=== PATIENT | female | born 1975 | race Caucasian/White ===

== ENCOUNTER 2022-06-13 20:20 | Emergency (ER) | payer MEDICARE, BC, SELFPAY ==
[2022-06-13 20:29] VITALS: BP 130/82; PULSE 95; RESP 16; TEMP 36.7; O2SAT 99
--- NOTE | 2022-06-13 21:00 | CRLHL7_ITS ---
For Patients: As a result of the Century Cures Act, medical imaging exams and procedure reports are released immediately into your electronic medical record. You may view this report before your referring provider. If you have questions, please contact your health care provider. INDICATION: AMS, TBI, confused. TECHNIQUE: CT head without contrast. Coronal and sagittal reformats were generated. COMPARISON: CT head from 09/15/2016. FINDINGS: CSF spaces: Within normal limits for age. Brain parenchyma and extra-axial spaces: The harris-white differentiation is normal. No sign of mass, hemorrhage, or midline shift. No extra-axial fluid collection. Skull base and calvarium: The visualized paranasal sinuses and mastoid air cells demonstrate no acute or significant findings. The visualized orbits are grossly unremarkable. No skull fractures. IMPRESSION: No acute intracranial abnormality. If there is clinical concern for diffuse axonal injury, recommend MRI of the brain as these findings may not be apparent on noncontrast head CT. Please note that all CT scans at this facility use dose modulation, iterative reconstruction, and/or weight-based dosing when appropriate to reduce radiation dose to as low as reasonably achievable. Dictated by John Culver MD @ 06/13/2022 10:32:40 PM (Electronically Signed)
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
[2022-06-13] MEDS: ONDANSETRON ODT 4 MG TAB PO (21:10)
[2022-06-13] MEDS: LORazepam 0.5 MG TABLET PO (21:10)
[2022-06-13 21:16] LABS: Basophils Absolute Auto 0.03 K/uL (0.00-0.30); Basophils Percent Auto 0.3 % (0.0-3.0); Hematocrit 44.8 % (33.0-51.0); Immature Granulocytes Abs Auto 0.01 K/uL (0.00-0.30); Immature Granulocytes Pct Auto 0.1 %; Mean Corpuscular HGB Conc 34 gm/dL (32-36); Mean Corpuscular Hemoglobin 29 pg (26-34); Mean Corpuscular Volume 86 fL (80-100); Monocytes Percent Auto 4.7 % (0.0-11.0); Neutrophils Percent Auto 80.9 % (42.0-72.0); Platelet Count* 355 K/uL (140-440); RDW Coefficient of Variation % 12.7 % (11.5-15.5); Red Blood Count 5.24 m/uL (4.00-5.20); White Blood Count* 10.98 K/uL (4.50-11.00)
[2022-06-13 21:18] LABS: Slide Review Reflex No
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
--- OUTSIDE RECORDS SUMMARY | 2022-06-13 21:36 | XMS_ITS | Encounter Summary ---
:1975 Author Organization [facility] Address [address] [place] [address] Care Team Providers Name Role Phone [facility] Unavailable [phone] Mar Alfaro DO Primary Care Provider Encounter Details Date Type Department Care Team Description 08/25/2021 Travel Social History Tobacco Use Types Packs/Day Years Used Date Smoking Tobacco: Every Day Cigarettes 0.3 Smokeless Tobacco: Never Alcohol Use Standard Drinks/Week Comments Yes 0 (1 standard drink = 0.6 oz pure alcoho l) social Sex Assigned at Date Recorded Not on file COVID-19 Exposure Response Date Recorded In the last month, have you been in contact with No / Unsure 08/25/2021 4:25 PM 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 documented as of this encounter Plan of Treatment Not on filedocumented as of this encounter Visit Diagnoses Not on filedocumented in this encounter Care Teams Table Tender Sludge Relationship Specialty Start Date End Date [facility] PCP - Primary Care Clinic [place] [address] [place] [address] Mar Alfaro DO PCP - General Family Medicine 07/09/21 [address] [place] [address] documented as of this encounter
--- OUTSIDE RECORDS SUMMARY | 2022-06-13 21:36 | XMS_ITS ---
:1975 Author Care Team Providers Name Role Phone TAPESTRY OTHER [phone] Allergies Code Code System Name Reaction Severity Status Onset NKDA ? Medications Name Status Start Date Stop Date ? ? amlodipine 2.5 mg tablet Active ? Not meron ilable TAKE 1 TABLET EVERY DAY BY ORAL ROUTE. chlorthalidone 25 mg tablet Active ? Not available Take 1 tablet every day by oral route. cholecalciferol (vitamin D3) 100 mcg (4,000 unit) capsule Active ? Not available Take 1 capsule every day by oral route. donepezil 10 mg tablet Active ? Not avail able Take 1 tablet every day by oral route at bedtime. duloxetine 60 mg capsule,delayed release Active ? Not available Take 1 capsule every day by oral route. Excedrin Migraine Active ? Not available OTC Incomplete order gabapentin 300 mg capsule Active ? Not av ailable Take 1 capsule 3 times a day by oral route. hydroxyzine HCl 50 mg tablet Active ? Not available Take 1 tablet every 6 hours by oral route as needed. metoprolol succinate ER 100 mg tablet,extended release 24 hr Act ranjit ? Not available Take 1 tablet every day by oral route. olanzapine 5 mg disintegrating tablet Active ? Not available Place 1 tablet every day by translingual route as needed. quetiapine 50 mg tablet Active ? Not avai lable Take 1 tablet as needed by oral route at bedtime. sumatriptan 25 mg tablet Active ? Not meron ilable Take 1 tablet PO at onset of migraine h eadache.if headache persists after 2 hours take another dose.Max dose of 2 tablets in 24hours. trazodone 50 mg tablet Active ? Not avail able Take 1 tablet as needed by oral route at bedtime. Notes: Routine Standing Orders Per [facility] Protocol Problems Name Status Onset Date Source ? Mixed Anxiety and Depressive Disorder Active ? ? Alcohol Dependence Active ? ? Tobacco Dependence Syndrome Active ? ? Migraine Active ? ? Hypertensive Disorder Active ? ? Traumatic Brain Injury Active ? ? Procedures Date Name Performed by ? ? Tonsillectomy Information not avai lable Results Lab Results None recorded. Past Encounters 05/22/2021 Alcohol Dependence; Mixed Anxiety and De pressive Disorder; Tobacco Dependence Syndrome; Alcohol Withdrawal Syndrome; Hypertensive Disorder; Migraine; Insomnia; Renewal of Prescription Braden Garcia NP, S: [address] [place] [address], Ph. Social History Tobacco Smoking Status Heavy Tobacco Smoker (1 pack per day) Vaccine List None recorded. Plan of Care Patient Instructions Infection control is important while in a congregant living facility, especially amid the COVID-19 pandemic. The following measures can help to mitigate the spread of infections: 1. Frequent hand washing with soap and w ater or hand slip injector and applicator. 2. Avoid touching your face. 3. Maintain social distance of at least 6 feet apart from other people. 4. Wear a mask or cloth face covering if available. 5. Spend time outdoors as much as possib le. 6. Report any fever, malaise, cough, or shortness of breath to nursing staff immediately. Quarantine from others if these symptoms develop. Reminders Provider Appointments None recorded. ? ? Lab None recorded. ? ? Referral None recorded. ? ? Procedures None recorded. ? ? Surgeries None recorded. ? ? Imaging None recorded. ? ? Vitals Height Weight BMI Blood Pressure 5 ft 1 in 220 lbs 41.6 kg/m2 132/90 mm[Hg]
--- OUTSIDE RECORDS SUMMARY | 2022-06-13 21:36 | XMS_ITS | Encounter Summary ---
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 by mouth once daily. cholecalciferol, vitamin D3, 25 mcg, 1000 unit, 25 mcg (1,000 unit) oral tablet Pharmacy Yes Yes Sig: Take 25 mcg by mouth once daily. donepeziL (ARICEPT) 10 mg oral tablet Pharmacy Yes Yes Sig: Take 10 mg by mouth at bedtime. gabapentin (NEURONTIN) 400 mg oral capsule Pharmacy Yes Yes Sig: Take 400 mg by mouth three times a day. ibuprofen 800 mg oral tablet Pharmacy Yes Yes Sig: Take 800 mg by mouth every 8 (eight) hours as needed. metoprolol tartrate (LOPRESSOR) 100 mg oral tablet Pharmacy Yes Yes Sig: Take 100 mg by mouth once daily. polyethylene glycol (MIRALAX) 17 gram Oral PwPk Unknown No No Sig: Take 17 g by mouth Once Daily. senna-docusate (SENNA- S) 8.6-50 mg Oral Tab Unknown No No Sig: Take 2 Tabs by mouth twice a day as needed. traZODone (DESYREL) 50 mg oral tablet Pharmacy Yes Yes Sig: Take 150 mg by mouth at bedtime as needed for sleep. Facility-Administered Medications: None This patient obtains medications from [id number], [place] - [address] [address] Pharmacy. Thank you for the opportunity to participate in the care of this patient. Anastasiya Zamudio, PharmD, [facility] Phone #:[phone] or [phone] Time spent reconciling meds: 30 min Location: NON-face to face encounter (telephone or other means of communication) ER [employer]OR ASSEMBLER documented in this encounter Plan of Treatment Not on filedocumented as of this encounter Procedures Procedure Name Priority Date/Time Associated Comments Diagnosis BASIC METABOLIC PROF Routine 08/29/2021 6:32 Resu lts for MAGNESIUM AM [employer] this procedure are in the results section. CBC Routine 08/29/2021 6:32 Results for (HGB,HCT,WBC,RBC,PLATELE AM [employer]SEMBLER thi s procedure T) are in the results section. ELECTROCARDIOGRAM Routine 08/28/2021 1:32 Results for PM [employer] this procedure are in the results section. POTASSIUM Timed Procedure 08/28/2021 Results for 11:32 AM [employer] this procedure are in the results section. BASIC METABOLIC PROF STAT 08/28/2021 5:23 Resu lts for MAGNESIUM AM [employer]ER this procedure are in the results section. CBC STAT 08/28/2021 5:23 Results for (HGB,HCT,WBC,RBC,PLATELE AM [employer]BLER thi s procedure T) are in the results section. MRI BRAIN LIMITED W/O Routine 08/27/2021 Result s for CON 10:09 PM [employer] this procedure are in the results section. POTASSIUM Timed Procedure 08/27/2021 5:13 Results f or PM [employer] this procedure are in the results section. EEG AWAKE & DROWSY DWAIN 08/27/2021 1:13 Result s for PM [employer]SEMBLER this procedure are in the results section. BASIC METABOLIC PROF STAT 08/27/2021 6:22 Resu lts for MAGNESIUM AM [employer]BLER this procedure are in the results section. LACTIC ACID STAT 08/27/2021 6:22 Results for AM [employer] this procedure are in the results section. GASES VENOUS PERIPHERAL STAT 08/27/2021 6:22 R esults for AM [employer] this procedure are in the results section. CBC STAT 08/27/2021 6:22 Results for (HGB,HCT,WBC,RBC,PLATELE AM [employer]SEMBLER thi s procedure T) are in the results section. LACTIC ACID STAT 08/26/2021 9:50 Results for PM [employer]SEMBLER this procedure are in the results section. BASIC METAB PROFILE STAT 08/26/2021 9:50 Resul ts for PM [employer]SEMBLER this procedure are in the results section. URINALYSIS MICROSCOPY STAT 08/26/2021 9:35 Res ults for (LAB USE ONLY) PM [employer]SEMBLER this procedur e are in the results section. URINALYSIS MACROSCOPIC STAT 08/26/2021 9:35 Re sults for W/ MICROSCOPY, IF PM [employer]SEMBLER this proce dure INDICATED (DOES NOT INC are in the CULTURE) results section. SARS-COV-2 AND INFLUENZA STAT 08/26/2021 7:01 Results for A/B BY ELIZABETH PCR PM [employer]OR [employer]SEMBLER this proced ure are in the results section. ELECTROCARDIOGRAM STAT 08/26/2021 6:31 Results for PM [employer]SEMBLER this procedure are in the results section. CT HEAD W/O CON W/O 3D STAT 08/26/2021 6:21 Re sults for PM [employer]SEMBLER this procedure are in the results section. XR CHEST AP PORT STAT 08/26/2021 5:59 Results for PM [employer]SEMBLER this procedure are in the results section. EXTRA TUBE-EDTA STAT 08/26/2021 5:57 PM [employer]SEMBLER EXTRA TUBE-COAG STAT 08/26/2021 5:57 PM [employer]BLER EXTRA TUBE-SST (LAB USE STAT 08/26/2021 5:57 ONLY) PM [employer]SEMBLER ALCOHOL (ETOH) Add On 08/26/2021 5:57 Results fo r PM [employer]SEMBLER this procedure are in the results section. LACTIC ACID STAT 08/26/2021 5:57 Results for PM [employer]SEMBLER this procedure are in the results section. BASIC METAB PROFILE STAT 08/26/2021 5:57 Resul ts for PM [employer]SEMBLER this procedure are in the results section. CBC/DIFF STAT 08/26/2021 5:57 Results for PM [employer]SEMBLER this procedure are in the results section. EXTRA TUBE PST STAT 08/26/2021 5:57 PM [employer]SEMBLER POCT LACTIC ACID STAT 08/26/2021 5:55 Results for PM [employer]SEMBLER this procedure are in the results section. EXTRA TUBE-BLOOD BANK STAT 08/26/2021 5:55 PM [employer]SEMBLER POCT CREATININE Routine 08/26/2021 5:55 Results f or PM [employer]BLER this procedure are in the results section. POCT VBG/NA/K/GL STAT 08/26/2021 5:55 Results for PM [employer]BLER this procedure are in the results section. POCT CALCIUM, IONIZED STAT 08/26/2021 5:55 Res ults for PM [employer]SEMBLER this procedure are in the results section. POCT CHLORIDE STAT 08/26/2021 5:55 Results for PM [employer]SEMBLER this procedure are in the results section. documented in this encounter Results (ABNORMAL) Basic Metabolic Profile Magnesium (08/29/2021 6:32 AM [facility])Only the most recent of3 resultswithin the time period is included. Analysis Performed At Patho logist Time Signature SODIUM 142 136 - 145 [facility] 08/29[facility]2021 [facility] mmol/L ANALYZER 7:16 AM [facility] POTASSIUM 3.2 (L) 3.4 - 5.1 [facility] 08/29/2021 [facility] mmol/L ANALYZER 7:16 AM [facility] CHLORIDE 108 98 - 108 [facility] 08/29/2021 [facility] mmol/L ANALYZER 7:16 AM [facility] CARBON DIOXIDE 25 20 - 31 [facility] 08/29/2021 [facility] mmol/L ANALYZER 7:16 AM [facility] BUN (UREA 9 9 - 23 [facility] 08/29/2021 [facility] NITRO) mg/dL ANALYZER 7:16 AM [facility] CREATININE 0.79 0.50 - [facility] 08/29/2021 [facility] 1.00 ANALYZER 7:16 AM [facility] mg/dL LABORATORY EST GFR >60.00 >60.00 [facility] 08/29/2021 [facility] (CKD-EPI) mL/min ANALYZER 7:16 AM [facility] EST GFR IF >60.00 >60.00 [facility] 08/29/2021 [facility] AM mL/min ANALYZER 7:16 AM [facility] GLUCOSE 94 74 - 106 [facility] 08/29/2021 [facility] mg/dL ANALYZER 7:16 AM [facility] CALCIUM, SERUM 9.3 8.7 - [facility] 08/29/2021 [facility] 10.4 ANALYZER 7:16 AM [facility] mg/dL LABORATORY ANION GAP 9.0 0.0 - [facility] 08/29/2021 [facility] 15.0 ANALYZER 7:16 AM [facility] mmol/L LABORATORY Magnesium 1.9 1.6 - 2.6 [facility] 08/29/2021 [facility] mg/dL ANALYZER 7:16 AM [facility] Specimen Anatomical Collection Method Collection Time Receive d Time (Source) Location / / Volume Laterality Blood 08/29/2021 6:32 AM 01/22/202 2 6:40 [employer] AM [employer]ER Jakob Wills MD CHEMISTRY ORDERABLE Performing Organization Address City/State/ZIP Code Phon e Number [facility] [address] [place] [address] LABORATORY (ABNORMAL) CBC (HGB,HCT,WBC,RBC,Platelet) (08/29/2021 6:32 AM [employer])Only the most recent of3 resultswithin the time period is included. [facility] Method Time Signature WBC 8.8 4.3 - 10.8 08/29/2021 [facility] K/uL 6:48 AM [facility] RBC 4.84 4.20 - 08/29/2021 [facility] 5.40 M/uL 6:48 AM [facility] HEMOGLOBIN 13.6 12.0 - 08/29/2021 [facility] 16.0 gm/dL 6:48 AM [facility] HEMATOCRIT 40.7 36.0 - 08/29/2021 [facility] 48.0 % 6:48 AM [facility] MCV 84 80 - 100 08/29/2021 [facility] fl 6:48 AM [facility] MCH 28 27 - 33 pg 08/29/2021 [facility] 6:48 AM [facility] MCHC 33 33 - 36 08/29/2021 [facility] gm/dL 6:48 AM [facility] RDW 15.4 (H) 11.5 - 08/29/2021 [facility] 14.5 % 6:48 AM [facility] PLATELET COUNT 301 150 - 400 08/29/2021 [facility] K/UL 6:48 AM [facility] MPV 10.4 6.5 - 12 08/29/2021 [facility] 6:48 AM [facility] Specimen Anatomical Collection Method Collection Time Receive d Time (Source) Location / / Volume Laterality Blood 08/29/2021 6:32 AM 2 6:40 [employer]ER AM [employer]BLER Jakob Wills MD HEMATOLOGY ORDERABLE Performing Organization Address City/State/ZIP Code Phon e Number [facility] [address] [place] [id number] LABORATORY EKG (08/28/2021 1:32 PM [employer]BL[employer])Only the most recent of2 resultswithin the time period is included. athologist Signature EKG [facility] Comment: ?N orth [facility] ? Test Date: ?2021-08-28 Pat Name: ? KEY PERES ? Department: ?? 5NW ?Room: ? 520 Gender: ? F ?Awning Maker: ?? [id number] : ?1975 ? Requested By: ANKIT JOHNSON MD Order Number: [id number] ?Reading MD: ?? Oscar Hirsch MD ? Measurements Intervals ?Marissa ? Rate: ? 103 ?P: ?45 NH: ? 164 ?QRS: ?-10 QRSD: ? 103 ?T: ?23 QT: ? 348 ? QTc: ?458 ? Interpretive Statements SINUS TACHYCARDIA POSSIBLE LEFT ATRIAL ENLARGEMENT [-0.1mV P WAVE IN V1/V2] INCOMPLETE RIGHT BUNDLE BRANCH BLOCK [90 + ms QRS DURATION, TERMINAL R IN V1/V2, 40+ ms S IN I/aVL/V4/V5/V6] POSSIBLE ANTERIOR MYOCARDIAL INFARCTION [30 ms Q WAVE IN V3/V4, OR R < 0.2 mV IN V4], OF INDETERMINATE AGE Electronically Signed On 08-31-2021 10:16 :00 [employer] by Oscar Hirsch MD Specimen (Source) Anatomical Collection Method Collection Time Re ceived Time Location / / Volume Laterality 08/28/2021 1:32 PM [employer]ER Narrative This result has an attachment that is no t available. Ankit Johnson MD EKG ORDERABLE Performing Organization Address City/State/ZIP Code Phon e Number [facility]SHUCTCHRISTOPHER [address] [place] [id number] Potassium, Serum (08/28/2021 11:32 AM [employer])Only the most recent of2 resultswithin the time period is included. athologist Signature POTASSIUM 3.5 3.4 - 5.1 [facility] 08/28/2021 [facility] mmol/L ANALYZER 12:03 PM [facility] Comment: Interpret with caution, specime n slightly hemolyzed. Results may be affected Specimen Anatomical Collection Method Collection Time Receive d Time (Source) Location / / Volume Laterality Blood 08/28/2021 11:32 08/28/2021 AM [employer] 11:41 AM [employer] Raysa Martines RN CHEMISTRY ORDERABLE Performing Organization Address City/State/ZIP Code Phon e Number [facility] [address] [place] [id number] LABORATORY MRI BRAIN LIMITED W/O CON (08/27/2021 10:09 PM [employer]OR [employer]SEMBLER) Anatomical Region Laterality Modality Head Magnetic Resonance Specimen (Source) Anatomical Collection Method Collection Time Re ceived Time Location / / Volume Laterality 08/27/2021 10:14 PM [employer] Impressions 08/27/2021 10:18 PM [employer]BLER IMPRESSION: Slight diffuse brain atrophy. No acute a bnormality, and no finding likely to account for seizure. REPORT SIGNED BY DR. Douglas Dalton 08/27/2021 10:18 PM [employer]SEMBLER EXAM: LIMITED MRI SCAN OF BRAIN WITHOUT INTRAVENOUS GADOLINIUM-BASED CONTRAST MATERIAL ENHANCEMENT DATE: 08/27/2021 9:15 PM CLINICAL: R56.9 Unspecified convulsions. COMPARISON: Head CT scan done yesterday. TECHNIQUE: Sagittal T1-weighted; axial d iffusion weighted; axial FLAIR. FINDINGS: Examination slightly degraded by motion artifact. No restricted diffusion. Slight diffuse brain atrophy. No cortical infarct. No intra or extra- axial hemorrhage or mass. No significant white m atter finding. The ventricles are normal ; no hydrocephalus. Major intracranial vascular structures are associated with normal flow related signal voids. Cerebellar tonsils are normally positioned relati ve to the foramen magnum. Normal pituita ry. Normal orbits. No mastoid effusion on either side. Paranasal sinuses are largely clear; mucosal thickening inferiorly in the right maxillary antrum. Procedure Note Douglas Stubbs MD - 08/27/2021Format ting of this note might be different from the original. EXAM: LIMITED MRI SCAN OF BRAIN WITHOUT INTRAVENOUS GADOLINIUM-BASED CONTRAST MATERIAL ENHANCEMENT DATE: 08/27/2021 9:15 PM CLINICAL: R56.9 Unspecified convulsions. COMPARISON: Head CT scan done yesterday. TECHNIQUE: Sagittal T1-weighted; axial d iffusion weighted; axial FLAIR. FINDINGS: Examination slightly degraded by motion artifact. No restricted diffusion. Slight diffuse brain atrophy. No cortical infarct. No intra or extra- axial hemorrhage or mass. No significant white matter finding. The ventricles are normal; no hydrocephalus. Major intracranial vascular structures are associated with normal flow related signal voids. Cerebellar tonsils are normally positioned relative to the foramen magnum. Normal pituitary. Normal orbits. No mast oid effusion on either side. Paranasal sinuses are largely clear; mucosal thickening inferiorly in the right maxillary antrum. IMPRESSION IMPRESSION: Slight diffuse brain atrophy. No acute a bnormality, and no finding likely to account for seizure. REPORT SIGNED BY DR. Douglas Stubbs Jakob Wills MD MRI ORDERABLE EEG AWAKE & DROWSY (08/27/2021 1:13 PM [employer]SEMBLER) Anatomical Region Laterality Modality Other Specimen (Source) Anatomical Location Collection Method / Collectio n Time Received Time / Laterality Volume Narrative 08/27/2021 1:03 PM [employer]ER Yamile Hurd MD ? 08/27/2021 ??1:09 PM Name: Key Peres : 1975 Requesting physician: Dr Ortega Date of service: 08/27/21 Medications: Aricept, Cymbalta, Ativan, Reason for study: 46 y.o. female with a prior history of depression, ETOH abuse living in sober h ouse, anxiety, dementia,and TBI with resulting cognitiv e decline that presented to the ED from her sober house due to fe eling off and confused and had a witnessed TC seizure FINDINGS: The awake EEG background was characteriz ed by a reactive, moderately well organized, continuous ad mixture of alpha, beta and theta frequencies with a symmetric 9 Hz posterior dominant rhythm (PDR) and preserved anterior to p osterior gradient. During drowsiness there was attenuation and fragmentation of the PDR. ??No normal sleep elements were see n. Activation procedures: Photic stimulation was performed between 2-30 Hz and was not associated with any abnormal background changes; normal driving response was not seen. Hyperventilation was not performed. Intermittent generalized high amplitude semi-rhythmic frontally predominant delta 1.5-2 Hz slowing was s een during this recording. THere was alos superimposed l eft hemisperic slowing - at times polymorphic, however, at times was rhythmic moderate amplitude 3 Hz delta over right temporal region concerning for runs of TIRDA (temporal intermittent rhy thmic delta) No epileptiform discharges were seen. No seizures were captured. Single lead ECG showed regular rate and rhythm of 102 bpm. IMPRESSION: This is a abnormal routine awake and citlaly wsy EEG due to the presence of: 1. Slowing over the right temporal regio n which was at times forming rhythmic pattern concerning for focal structural or functional abnormality over the right te mporal region and increased risk for seizures arising from this region 2. Mild-moderate generalized slowing of the background indicative of diffuse cerebral dysfunction (encepha lopathy) seen in toxic, metabolic conditions, diffuse structural cerebral abnormalities ?? Eli West CHARACTER IMPERSONATOR, BRAND AMBASSADOR PROMOTIONAL MODEL EEG ORDERABLE Lactic Acid (08/27/2021 6:22 AM [employer])Only the most recent of3 resultswithin the time period is included. athologist Signature LACTIC ACID 0.9 0.7 - 2.1 08/27/2021 [facility] mmol/L 6:48 AM [facility] Specimen Anatomical Collection Method Collection Time Receive d Time (Source) Location / / Volume Laterality Blood 08/27/2021 6:22 AM 6:33 [employer]SEMBLER AM [employer]BLER Jakob Wills MD CHEMISTRY ORDERABLE Performing Organization Address City/State/ZIP Code Phon e Number [facility] [address] [place] [address] LABORATORY Gases Venous Peripheral (08/27/2021 6:22 AM [employer]BL[employer]) athologist Signature PH VENOUS 7.38 7.30 - 08/27/2021 [facility] 7.40 6:48 AM [facility] 02 SAT VENOUS 79.8 60.0 - 08/27/2021 [facility] 80.0 % 6:48 AM [facility] PO2 VENOUS 43 35 - 45 mm 08/27/2021 [facility] Hg 6:48 AM [facility] BASE EXCESS 0.8 -3.0 - 2.0 08/27/2021 [facility] VENOUS mmol/L 6:48 AM [facility] PCO2 VENOUS 45 36 - 51 mm 08/27/2021 [facility] Hg 6:48 AM [facility] HCO3 VENOUS 26 22 - 29 08/27/2021 [facility] mmol/L 6:48 AM [facility] Specimen Anatomical Collection Method Collection Time Receive d Time (Source) Location / / Volume Laterality Blood 08/27/2021 6:22 AM 6:33 [employer]BLER AM [employer]ER Jakob Wills MD CHEMISTRY ORDERABLE Performing Organization Address City/State/ZIP Code Phon e Number [facility] [address] [place] [id number] LABORATORY (ABNORMAL) Basic Metabolic Profile (08/26/2021 9:50 PM [employer])Only the most recent of2 resultswithin the time period is included. Analysis Performed At Patho logist Time Signature SODIUM 140 136 - 145 [facility] 08/26/2021 [facility] mmol/L ANALYZER 10:37 PM [facility] POTASSIUM 3.1 (L) 3.4 - 5.1 [facility] 08/26/2021 [facility] mmol/L ANALYZER 10:37 PM [facility] CHLORIDE 106 98 - 108 [facility] 08/26/2021 [facility] mmol/L ANALYZER 10:37 PM [facility] CARBON DIOXIDE 26 20 - 31 [facility] 08/26/2021 [facility] mmol/L ANALYZER 10:37 PM [facility] BUN (UREA 9 9 - 23 [facility] 08/26/2021 [facility] NITRO) mg/dL ANALYZER 10:37 PM [facility] CREATININE 0.93 0.50 - [facility] 08/26/2021 [facility] 1.00 ANALYZER 10:37 PM [facility] mg/dL LABORATORY EST GFR >60.00 >60.00 [facility] 08/26/2021 [facility] (CKD-EPI) mL/min ANALYZER 10:37 PM [facility] EST GFR IF >60.00 >60.00 [facility] 08/26/2021 [facility] AM mL/min ANALYZER 10:37 PM [facility] GLUCOSE 119 (H) 74 - 106 [facility] 08/26/2021 [facility] mg/dL ANALYZER 10:37 PM [facility] CALCIUM, SERUM 8.6 (L) 8.7 - [facility] 08/26/2021 [facility] 10.4 ANALYZER 10:37 PM [facility] mg/dL LABORATORY ANION GAP 8.0 0.0 - [facility] 08/26/2021 [facility] 15.0 ANALYZER 10:37 PM [facility] mmol/L LABORATORY Specimen Anatomical Collection Method Collection Time Receive d Time (Source) Location / / Volume Laterality Blood 08/26/2021 9:50 PM [employer]ER 10:11 PM [employer] Rhys Bullock MD CHEMISTRY ORDERABLE Performing Organization Address [facility]/ZIP Code [address] [phone] LABORATORY (ABNORMAL) Urinalysis Microscopy (Lab Use Only) (08/26/2021 9:35 PM L[employer] DOOR ASSEMBLER) [facility] Method Time Signature WBC-UA MICRO 1-4 None 08/26/2021 [facility] Seen, 10:58 PM [employer]SEMBLER HEALTH Occasiona LABORATORY l, Few, 1-4 /hpf BACTERIA Present (A) Absent, 08/26/2021 [facility] None Seen 10:58 PM [facility] SQUAM Few (A) None Seen 08/26/2021 [facility] EPITHELIAL /lpf 10:58 PM [facility] RBC-UA 3-9 (A) None 08/26/2021 [facility] Seen, 10:58 PM [facility] [employer] l, 1-2 /hpf Specimen Anatomical Collection Method Collection Time Receive d Time (Source) Location / / Volume Laterality Urine specimen 08/26/2021 9:35 PM 022 (specimen) [employer]ER 10:12 PM [employer]BLER Jakob Wills MD URINE ORDERABLE Performing Organization Address [facility]/[address] [address] LABORATORY (ABNORMAL) Urinalysis Macroscopic w/ Microscopy, if indicated (Does not inc culture) (08/26/2021 9:35 PM L[employer] DOOR ASSEMBLER) [facility] Method Time Signature GLUCOSE, UA Negative Negative 08/26/2021 [facility] mg/dL 10:58 PM [facility] KETONE, UA 15 (A) Negative 08/26/2021 [facility] mg/dL 10:58 PM [facility] BILIRUBIN, UA Negative Negative 08/26/2021 [facility] 10:58 PM [facility] PROTEIN, UA 30 (A) Negative 08/26/2021 [facility] mg/dL 10:58 PM [facility] OCCULT BLOOD, Moderate (A) Negative, 08/26/2021 [facility] UA Trace 10:58 PM [facility] WBC ESTERASE, Negative Negative, 08/26/2021 [facility] UA Trace 10:58 PM [facility] NITRITE, UA Negative Negative 08/26/2021 [facility] 10:58 PM [facility] pH Urine 5.5 5.0 - 8.0 08/26/2021 [facility] 10:58 PM [facility] Specific >=1.030 (A) 1.015 - 08/26/2021 [facility] [place], UA 1.025 10:58 PM [facility] Urobilinogen, 0.2 0.2 - 1.0 08/26/2021 [facility] UA EU/dL 10:58 PM [facility] Specimen Anatomical Collection Method Collection Time Receive d Time (Source) Location / / Volume Laterality Urine specimen 08/26/2021 9:35 PM 022 (specimen) [employer] 10:12 PM LOUVER DOOR ASSEMBLER Jakob Wills MD URINE ORDERABLE Performing Organization Address City/[facility]/ZIP Code Phon e Number [facility] [address] [facility] [id number] [facility] COVID-19 (PUI) / Influenza (08/26/2021 7:01 PM [employer]) Analysis Performed At Patho logist Time Signature SARS-CoV-2 SARS-CoV-2 SARS-CoV-2 FAN ELIZABETH 08/27/2021 JESSUP RNA by PCR RNA Not RNA Not 6800 8:53 AM [facility] Detected Detected [facility] INFLUENZA A Influenza A Influenza A FAN ELIZABETH 08/27/2021 JESSUP BY ELIZABETH PCR RNA Not RNA Not 6800 8:53 AM [facility] Detected Detected [facility] INFLUENZA B Influenza B Influenza B FAN ELIZABETH 08/27/2021 JESSUP BY ELIZABETH PCR RNA Not RNA Not 6800 8:53 AM [facility] Detected Detected [facility] Specimen (Source) Anatomical Collection Method Collection Time Re ceived Time Location / / Volume Laterality Nasopharynx 08/26/2021 7:01 08/26/2021 7 :07 PM [employer] PM [employer] Rhys Bullock MD MICROBIOLOGY ORDERABLE Performing Organization Address City/State/ZIP Code Phon e Number [facility] [address] [place] [address] HEAD (08/26/2021 6:21 PM [employer]BLER) Anatomical Region Laterality Modality Head Computed Tomography Specimen (Source) Anatomical Collection Method Collection Time Re ceived Time Location / / Volume Laterality 08/26/2021 6:15 PM [employer] Impressions 08/26/2021 6:16 PM [employer]ER IMPRESSION: ?? 1. ??Generalized atrophy and chronic mat rovascular ischemic change. 2. ??No acute intracranial pathology. REPORT SIGNED BY DR. OLEGARIO LOVETT Narrative 08/26/2021 6:16 PM [employer]ER EXAM: ??CT HEAD W/O CON W/O 3D DATE: ??08/26/2021 6:10 PM CLINICAL DATA: ADDITIONAL CLINICAL DATA: ??Other-Docume nt in comments below COMPARISON: ??07/20/2013. TECHNIQUE: Noncontrast CT scan of the he ad with thin-section contiguous transaxial images from the skull base to the vertex. FINDINGS: ACUTE FINDINGS: ??No intracranial hemorr melody, mass lesions, or acute stroke. ?? VENTRICLES: ??Generalized volume loss wi th corresponding enlargement of the ventricular system, progressed. ?? BRAIN PARENCHYMA: ??Small amount of chief medical officer deb microvascular ischemic change in the periventricular white matter, new. ?? SINUSES: ??The visualized paranasal sinu ses are clear. ?? MASTOIDS: ??Visualized mastoids are hi r. CALVARIUM: ??No calvarial fractures. ?? OTHER: Procedure Note Naman Lovett MD - 08/26/2021Forma tting of this note might be different from the original. EXAM: CT HEAD W/O CON W/O 3D DATE: 08/26/2021 6:10 PM CLINICAL DATA: ADDITIONAL CLINICAL DATA: Other-Document in comments below COMPARISON: 07/20/2013. TECHNIQUE: Noncontrast CT scan of the he ad with thin-section contiguous transaxial images from the skull base to the vertex. FINDINGS: ACUTE FINDINGS: No intracranial hemorrha ge, mass lesions, or acute stroke. VENTRICLES: Generalized volume loss with corresponding enlargement of the ventricular system, progressed. BRAIN PARENCHYMA: Small amount of chroni c microvascular ischemic change in the periventricular white matter, new. SINUSES: The visualized paranasal sinuse s are clear. MASTOIDS: Visualized mastoids are clear. CALVARIUM: No calvarial fractures. OTHER: IMPRESSION IMPRESSION: 1. Generalized atrophy and chronic micro vascular ischemic change. 2. No acute intracranial pathology. REPORT SIGNED BY DR. OLEGARIO LOVETT Vini Sanchez MD CT ORDERABLE XRAY CHEST PORTABLE (08/26/2021 5:59 PM [employer] ASSEMBLER) Anatomical Region Laterality Modality Chest Computed Radiography Specimen (Source) Anatomical Collection Method Collection Time Re ceived Time Location / / Volume Laterality 08/26/2021 6:00 PM [employer] Impressions 08/26/2021 6:01 PM [employer]SEMBLER IMPRESSION: 1. ??No acute findings. REPORT SIGNED BY DR. OLEGARIO LOVETT Narrative 08/26/2021 6:01 PM [employer] ASSEMBLER EXAM: ??XR CHEST AP PORT DATE: 08/26/2021 5:59 PM CLINICAL DATA: ADDITIONAL CLINICAL DATA: ??Seizure. ?? COMPARISON: ??03/13/2013. FINDINGS: HEART: ??Normal in size. PULMONARY VASCULARITY: ??Normal. ?? LUNG FARMER: ??No focal infiltrates, eff usions, or worrisome pulmonary nodules. TUBES/LINES: ??Tracheostomy tube has bee n removed. OTHER: ??Curvature of the thoracic spine , unchanged. Procedure Note Naman Lovett MD - 08/26/2021Forma tting of this note might be different from the original. EXAM: XR CHEST AP PORT DATE: 08/26/2021 5:59 PM CLINICAL DATA: ADDITIONAL CLINICAL DATA: Seizure. COMPARISON: 03/13/2013. FINDINGS: HEART: Normal in size. PULMONARY VASCULARITY: Normal. LUNG FARMER: No focal infiltrates, effus ions, or worrisome pulmonary nodules. TUBES/LINES: Tracheostomy tube has been removed. OTHER: Curvature of the thoracic spine, unchanged. IMPRESSION IMPRESSION: 1. No acute findings. REPORT SIGNED BY DR. OLEGARIO LOVETT Vini Sanchez MD XRAY ORDERABLE (ABNORMAL) Alcohol (ETOH), Plasma (08/26/2021 5:57 PM [employer] ASSEMBLER) P athologist Signature ALCOHOL 4 (H) <3 mg/dL ATELLICA 08/26/2021 [facility] (ETOH), PLASMA ANALYZER 8:06 PM [employer] [employer] LAB[facility]ATORY Specimen Anatomical Collection Method Collection Time Receive d Time (Source) Location / / Volume Laterality Blood 08/26/2021 5:57 PM 6:01 [employer]ER PM [employer]SEMBLER Rhys Bullock MD CHEMISTRY ORDERABLE Performing Organization Address City/[facility]/ZIP Code Phon e Number [facility] [address] [place] [id number] LABORATORY Extra Tube-Coag (Lab Use Only) (08/26/2021 5:57 PM [employer] ASSEMBLER) Specimen Anatomical Collection Method Collection Time Receive d Time (Source) Location / / Volume Laterality Blood 08/26/2021 5:57 PM 2 6:01 [employer]ER PM [employer]SEMBLER Rhys Bullock MD COAGULATION ORDERABLE Performing Organization Address City/[facility]/ZIP Code Phon e Number [facility] [address] [id number] LABORATORY Extra Tube PST (Lab Use Only) (08/26/2021 5:57 PM [employer] ASSEMBLER) Specimen Anatomical Collection Method Collection Time Receive d Time (Source) Location / / Volume Laterality Blood 08/26/2021 5:57 PM 2 6:01 [employer]ER PM [employer] ASSEMBLER Rhys Bullock MD CHEMISTRY ORDERABLE Performing Organization Address City/[facility]/ZIP Code Phon e Number [place] [id number] [place] [address] [phone] LABORATORY Extra Tube-SST (Lab Use Only) (08/26/2021 5:57 PM [employer] ASSEMBLER) Specimen Anatomical Collection Method Collection Time Receive d Time (Source) Location / / Volume Laterality Blood 08/26/2021 5:57 PM 2 6:00 [employer]ER PM [employer] ASSEMBLER Rhys Bullock MD CHEMISTRY ORDERABLE Performing Organization Address City/[facility]/ZIP Code Phon e Number [facility] [address] [id number] LABORATORY Extra Tube-EDTA (Lab Use Only) (08/26/2021 5:57 PM [employer] ASSEMBLER) Specimen Anatomical Collection Method Collection Time Receive d Time (Source) Location / / Volume Laterality Blood 08/26/2021 5:57 PM 2 6:01 [employer]BLER PM [employer] ASSEMBLER Rhys Bullock MD HEMATOLOGY ORDERABLE Performing Organization Address City/[facility]/ZIP Code Phon e Number [facility] [address] [id number] LABORATORY (ABNORMAL) CBC w/diff (08/26/2021 5:57 PM [facility]) [facility] Method Time Signature WBC 14.8 (H) 4.3 - 08/26/2021 [facility] 10.8 K/uL 6:05 PM [employer] LABORATORY RBC 5.72 (H) 4.20 - 08/26/2021 [facility] 5.40 M/uL 6:05 PM [facility] LABORATORY HEMOGLOBIN 15.7 12.0 - 08/26/2021 [facility] 16.0 6:05 PM [facility] gm/dL LABORATORY HEMATOCRIT 51.4 (H) 36.0 - 08/26/2021 [facility] 48.0 % 6:05 PM [facility] LABORATORY MCV 90 80 - 100 08/26/2021 [facility] fl 6:05 PM [facility] LABORATORY MCH 27 27 - 33 08/26/2021 [facility] pg 6:05 PM [facility] LABORATORY MCHC 31 (L) 33 - 36 08/26/2021 [facility] gm/dL 6:05 PM [facility] LABORATORY RDW 14.9 (H) 11.5 - 08/26/2021 [facility] 14.5 % 6:05 PM [facility] LABORATORY PLATELET COUNT 449 (H) 150 - 400 08/26/2021 [facility] K/UL 6:05 PM [facility] LABORATORY MPV 10.8 6.5 - 12 08/26/2021 [facility] 6:05 PM [facility] LAB[facility]ATORY PMN % 68.4 % 08/26/2021 [facility] 6:05 PM [facility] LABORATORY IG% 0.5 <=1.0 % 08/26/2021 [facility] 6:05 PM [facility] LABORATORY LYMPH % 25.9 % 08/26/2021 [facility] 6:05 PM [facility] LABORATORY MONO % 4.5 % 08/26/2021 [facility] 6:05 PM [facility] LABORATORY EOS % 0.1 % 08/26/2021 [facility] 6:05 PM [facility] LABORATORY BASO % 0.6 % 08/26/2021 [facility] 6:05 PM [facility] LABORATORY PMN ABSOLUTE 10.09 (H) 1.80 - 08/26/2021 [facility] 7.80 K/uL 6:05 PM [facility] [employer] LABORATORY IG ABSOLUTE 0.07 K/uL 08/26/2021 [facility] 6:05 PM [facility] LABORATORY LYMPH ABSOLUTE 3.82 1.00 - 08/26/2021 [facility] 4.00 K/uL 6:05 PM [facility] LABORATORY MONO ABSOLUTE 0.67 0.00 - 08/26/2021 [facility] 1.00 K/uL 6:05 PM [facility] LABORATORY EOS ABSOLUTE 0.02 0.00 - 08/26/2021 [facility] 0.45 K/uL 6:05 PM [facility] LABORATORY BASO ABSOLUTE 0.09 0.00 - 08/26/2021 [facility] 0.20 K/uL 6:05 PM [facility] LABORATORY NUCL RBC % 0.0 0.0 - 0.0 08/26/2021 [facility] /100 WBC 6:05 PM [facility] LABORATORY NUCL RBC 0.00 0.00 - 08/26/2021 [facility] ABSOLUTE 0.00 K/uL 6:05 PM [facility] LABORATORY Specimen Anatomical Collection Method Collection Time Receive d Time (Source) Location / / Volume Laterality Blood 08/26/2021 5:57 PM 2 6:01 [employer]BLER PM [employer] ASSEMBLER Vini Sanchez MD HEMATOLOGY ORDERABLE Performing Organization Address City/State/ZIP Code Phon e Number [address] [address] LABORATORY POCT Chloride (08/26/2021 5:55 PM [employer]OR ASSEMBLER) athologist Signature POCT CHLORIDE 106 98 - 107 08/26/2021 [facility] mmol/L 5:58 PM [facility] LABORATORY Specimen Anatomical Collection Method Collection Time Receive d Time (Source) Location / / Volume Laterality 08/26/2021 5:55 PM 2 5:58 [employer] ASSEMBLER PM [employer]OR ASSEM[employer]ER [facility] LAB POINT OF CARE TEST RESUL TS Performing Organization Address City/[facility]/ZIP [facility] Phon e Number [address] [place] [address] LABORATORY POCT CREATININE (08/26/2021 5:55 PM [employer] DOOR ASSEMBLER) athologist Signature POCT CREATININE 1.2 0.5 - 1.3 08/26/2021 [facility] L mg/dL 5:58 PM [facility] [employer] LABORATORY Specimen Anatomical Collection Method Collection Time Receive d Time (Source) Location / / Volume Laterality 08/26/2021 5:55 PM 2 5:58 [employer] ASSEMBLER PM [employer]OR ASSEM[employer] [facility] LAB POINT OF CARE TEST RESUL TS Performing Organization Address City/[facility]/ZIP Code Phon e Number [facility] [address] [place] [id number] LABORATORY (ABNORMAL) POCT Lac (08/26/2021 5:55 PM [employer]OR ASSEMBLER) [facility] Method Time Signature POCT LACTIC >20.0 (HH) 0.7 - 2.1 08/26/2021 [facility] ACID mmol/L 5:58 PM [employer] DOOR ASSEMBLER [facility] LABORATORY Specimen Anatomical Collection Method Collection Time Receive d Time (Source) Location / / Volume Laterality 08/26/2021 5:55 PM 2 5:58 [employer] ASSEMBLER PM [employer]OR ASSEM[employer] [facility] LAB POINT OF CARE TEST RESUL TS Performing Organization Address City/[facility]/ZIP Code Phon e Number [place] [id number] [place] [id number] LABORATORY POCT Ca, Ionized (08/26/2021 5:55 PM [employer] ASSEMBLER) athologist Signature POCT CA 1.25 1.13 - 08/26/2021 [facility] IONIZED 1.32 5:58 PM [employer] mmol/L LABORATORY Specimen Anatomical Collection Method Collection Time Receive d Time (Source) Location / / Volume Laterality 08/26/2021 5:55 PM 2 5:58 [employer]BLER PM [employer] [facility] LAB POINT OF CARE TEST RESUL TS Performing Organization Address City/[facility]/ZIP Code Phon e Number [facility] [address] [place] [id number] LABORATORY (ABNORMAL) POCT VBG/Na/K/Glu (08/26/2021 5:55 PM [employer]OR ASSEMBLER) [facility] Method Time Signature POCT PH VENOUS 6.82 (L) 7.35 - 08/26/2021 [facility] 7.45 5:58 PM [facility] [employer] LABORATORY POCT PCO2 93 (H) 36 - 51 mm 08/26/2021 [facility] VENOUS Hg 5:58 PM [facility] LABORATORY POCT PO2 32 mm Hg 08/26/2021 [facility] VENOUS 5:58 PM [facility] LABORATORY POCT HCO3 15 (L) 22 - 29 08/26/2021 [facility] VENOUS mmol/L 5:58 PM [facility] LABORATORY POCT BASE -22.2 (L) -3.0 - 2.0 08/26/2021 [facility] EXCESS mmol/L 5:58 PM [facility] LABORATORY POCT CSO2 25.7 (L) 92.0 - 08/26/2021 [facility] 98.0 %SAT 5:58 PM [facility] LABORATORY POCT cTCO2 18.0 mmol/L 08/26/2021 [facility] 5:58 PM [facility] LABORATORY POCT SODIUM 143 133 - 144 08/26/2021 [facility] mmol/L 5:58 PM [facility] LABORATORY POCT POTASSIUM 2.6 (LL) 3.5 - 5.0 08/26/2021 [facility] mmol/L 5:58 PM [facility] LABORATORY POCT GLUCOSE 179 (H) 60 - 100 08/26/2021 [facility] mg/dL 5:58 PM [facility] LABORATORY Specimen Anatomical Collection Method Collection Time Receive d Time (Source) Location / / Volume Laterality 08/26/2021 5:55 PM 2 5:58 [employer]BLER PM [employer]OR ASSEM[employer] [facility] LAB POINT OF CARE TEST RESUL TS Performing Organization Address [facility] Phon e Number [address] [address] LABORATORY Extra Tube-Blood Bank (Lab Use Only) (08/26/2021 5:55 PM [employer]OR ASSEMBLER) Specimen Anatomical Collection Method Collection Time Receive d Time (Source) Location / / Volume Laterality Blood 08/26/2021 5:55 PM 2 6:00 [employer]SEMBLER PM [employer]OR ASSEMBLER Rhys Bullock MD BLOOD BANK ORDERABLE Performing Organization Address [facility] Phon e Number [address] [address] LABORATORY documented in this encounter Visit Diagnoses Diagnosis Seizure (HCC) - Primary Other convulsions Lactic acidosis Acidosis Hypokalemia Hypopotassemia documented in this encounter Admitting Diagnoses Diagnosis Seizure (HCC) Other convulsions documented in this encounter Administered Medications Inactive Administered Medications - up to 3 most recent administrations Medication Order MAR Action Action Date Dose Rate Site saline FLUSH syringe 10 mL Given 08/28/2021 9:14 PM [employer]SEMBLER 10 mL 10 mL, Intravenous, EVERY 8 HOURS, First dose on Tue08/26/21 at 2300, Until Discontinued Given 08/27/2021 10:40 PM [employer] ASSEMBLER 10 mL Given 08/27/2021 2:00 PM [employer] ASSEMBLER 10 mL saline FLUSH syringe 10 mL Given 08/28/2021 8:13 AM [employer]OR ASSEMBLER 10 mL 10 mL, Intravenous, NEEDED, Starting on Tue08/26/21 at 2248, Until Tue08/29/21 at 1728, Line Care acetaminophen (TYLENOL) tablet 1,000 mg Given 08/27/2021 3:29 PM [employer]SEMBLER 1,000 mg 1,000 mg, oral, ONCE NEEDED, 1 dose, Starting on Tue08/26/21 at 2132, Until Tue08/27/21 at 1529, fever acetaminophen (TYLENOL) tablet 325-650 m g Given 08/26/2021 11:50 PM [employer] ASSEMBLER 650 mg 325-650 mg, oral, EVERY 4 HOURS NEEDED, Starting on Tue08/26/21 at 2248, Until Tue08/27/21 at 1441, fever, pain, for pain or fever acetaminophen (TYLENOL) tablet 650 mg Given 08/28/2021 3:45 PM [employer]SEMBLER 650 mg 650 mg, oral, EVERY 12 HOURS, First dose (after last modification) on Tue08/27/21 at 1445, Until Discontinued Given 08/28/2021 3:34 AM [employer]OR ASSEMBLER 650 mg amLODIPine (NORVASC) tablet 2.5 mg Given 08/29/2021 9:36 AM [employer]OR ASSEMBLER 2.5 mg 2.5 mg, oral, DAILY, First dose (after last modification) on Tue08/29/21 at 0800, Until Discontinued chlorthalidone (HYGROTON) tablet 25 mg Given 08/29/2021 9:36 AM [employer]BLER 25 mg 25 mg, oral, DAILY, First dose (after last modification) on Tue08/29/21 at 0800, Until Discontinued donepeziL (ARICEPT) tablet 10 mg Given 08/28/2021 9:14 PM [employer]BLER 10 mg 10 mg, oral, AT BEDTIME, First dose on Tue08/27/21 at 2200, Until Discontinued Given 08/27/2021 10:35 PM [employer]ER 10 mg DULoxetine (CYMBALTA) delayed release capsule Given 9:37 AM [employer]BLER 60 mg 60 mg 60 mg, oral, DAILY, First dose on Tue08/27/21 at 0800, Until Discontinued Given 08/28/2021 8:22 AM [employer]BLER 60 mg Given 08/27/2021 8:50 AM [employer]BLER 60 mg hydrALAZINE (APRESOLINE) injection 10 mg Given 08/28/2021 3:44 PM [employer] 10 mg 10 mg, Intravenous, EVERY 6 HOURS NEEDED, Starting on Tue08/28/21 at 1537, Until 08/29/21 at 1728, for SBP GREATER THAN, for SBP over 180 or DBP over 100 hydrOXYzine (ATARAX) tablet 25 mg Given 08/28/2021 3:21 PM [employer]ER 25 mg 25 mg, oral, THREE TIMES A DAY NEEDED, Starting on Tue08/28/21 at 1322, Until Tue08/28/21 at 1537, see comments, anxiety hydrOXYzine (ATARAX) tablet 25 mg Given 08/28/2021 9:14 PM [employer]BLER 25 mg 25 mg, oral, THREE TIMES A DAY, First dose (after last modification) on Tue08/28/21 at 1545, Until Discontinued hydrOXYzine pamoate (VISTARIL) capsule 2 5 mg 25 mg, oral, EVERY 6 HOURS NEEDED, St arting on Tue08/29/21 at 0308, Until Tue08/29/21 at 1728, anxiety ketorolac (ToradoL) injection 15 mg Given 08/26/2021 10:39 PM [employer] 15 mg 15 mg, Intravenous, ONCE, 1 dose, On Tue08/26/21 at 2215, Maximum duration of treatment is 5 days. lactated Ringers (LR) IV infusion Rate Change 08/27/2021 3:36 PM [employer] 75 mL/hr at 75 mL/hr, Intravenous, CONTINUOUS, Starting on Tue08/26/21 at 2300, Until Tue08/28/21 at 1801 New Bag 08/27/2021 12:04 AM [employer] 100 mL/hr levETIRAcetam in NaCl (KEPPRA) IV New Bag 08/26/2021 9:47 PM [employer]BL[employer] 1 ,000 mg piggyback 1,000 mg 1,000 mg, Intravenous, ONCE, 1 dose, On Tue08/26/21 at 2015, Administer over 30 Minutes lidocaine 1% (PF) (XYLOCAINE) Given 08/28/2021 8:13 AM [employer] 0.1 m L Left Arm injection 0.1-0.3 mL 0.1-0.3 mL, Intradermal, NEEDED, Starting on Tue08/26/21 at 2248, Until 08/29/21 at 1728, IV start or restart LORazepam (ATIVAN) injection (conc: 2 mg/mL) 1 Given 0 08/27/2021 8:10 PM [employer] 1 mg mg 1 mg, Intravenous, ONCE, 1 dose, On Sole 08/27/21 at 2015 LORazepam (ATIVAN) injection (conc: 2 mg/mL) 1 Given 0 08/27/2021 9:53 PM [employer] 1 mg mg 1 mg, Intravenous, ONCE NEEDED, 1 dose, Starting on Tue08/27/21 at 2139, Until Tue08/27/21 at 2153, for MRI LORazepam (ATIVAN) injection (conc: 2 mg/mL) 2 Given 0 08/26/2021 6:14 PM [employer] 2 mg mg 2 mg, Intravenous, ONCE, 1 dose, On Tue08/26/21 at 1830 LORazepam (ATIVAN) injection (conc: 2 mg /mL) 2 mg 2 mg, Intravenous, ONCE NEEDED, 1 dos e, Starting on Tue08/26/21 at 1819, Until Tue08/29/21 at 1728, seizure LORAZEPAM 2 MG/ML INJECTION SOLUTION Given 08/26/2021 5:55 PM [employer] 2 mg 1 dose, Starting on Tue08/26/21 at 1753, Until Tue08/26/21 at 1755 MAGNESIUM REPLACEMENT INTRAVENOUS - NOT FOR DOCUMENTATION PURPOSES Intravenous, PER PROTOCOL, Starting on T 08/27/21 at 0729, Until 08/29/21 at 1728 metoprolol tartrate (LOPRESSOR) tablet 1 00 mg Given 08/29/2021 9:36 AM [employer] 100 mg 100 mg, oral, DAILY, First dose on Tue08/28/21 at 1645, Until Discontinued Given 08/28/2021 5:25 PM [employer] 100 mg ondansetron (ZOFRAN) disintegrating tabl et 4 mg Given 08/26/2021 3:36 PM [employer] 4 mg 4 mg, oral, ONCE, 1 dose, On Tue08/26/21 at 1545 ONDANSETRON 4 MG DISINTEGRATING TABLET 1 dose, Starting on Tue08/26/21 at 1535, Until 08/08 at 1536 potassium chloride (K-DUR) extended release Given 08/09 12:08 PM [employer] 40 mEq tablet 40 mEq 40 mEq, oral, EVERY 4 HOURS (NS), 2 doses, First dose on Tue08/27/21 at 0800, Last dose on Tue08/27/21 at 1200 Given 08/27/2021 8:07 AM [employer] 40 mEq potassium chloride (K-DUR) extended release Given 08/28/2021 8:21 AM [employer] 40 mEq tablet 40 mEq 40 mEq, oral, ONCE, 1 dose, On Tue08/28/21 at 0700 potassium chloride (K-DUR) extended release Given 08/29/2021 9:36 AM [employer] 40 mEq tablet 40 mEq 40 mEq, oral, ONCE, 1 dose, On Tue08/29/21 at 0800 potassium chloride 10 mEq IV New Bag 08/26/2021 6:47 PM [employer] 10 mEq 100 mL/hr piggyback in 100 mL 100 mL (10 mEq), Intravenous, ONCE, 1 dose, On Tue08/26/21 at 1845, Administer over 60 Minutes potassium chloride 10 mEq IV piggyback in New Bag 2021 11:04 PM [employer] 100 mL 100 mL 100 mL (10 mEq), Intravenous, EVERY 1 HOUR, 2 doses, First dose on Tue08/26/21 at 2200, Last dose on Tue08/26/21 at 2300, Administer over 60 Minutes New Bag 08/26/2021 10:00 PM [employer] 100 mL POTASSIUM CHLORIDE 10 MEQ/100ML IN STERI LE WATER INTRAVENOUS PIGGYBACK 1 dose, Starting on Tue08/26/21 at 1836, Until 08/08 at 1947 POTASSIUM REPLACEMENT INTRAVENOUS - NOT FOR DOCUMENTATION PURPOSES Intravenous, PER PROTOCOL, Starting on T hu 08/27/21 at 0729, Until 08/29/21 at 1728 POTASSIUM REPLACEMENT ORAL - NOT FOR DOC UMENTATION PURPOSES oral, PER PROTOCOL, Starting on Sole 08/27 at 0729, Until 08/29/21 at 1728, May request packets if patient requires liquid potassium. SODIUM CHLORIDE 0.9 % New Bag 08/26/2021 6:00 PM [employer] 1,000 mL 20 00 mL/hr INTRAVENOUS SOLUTION 1 dose, Starting on Tue08/26/21 at 1758, Until Tue08/26/21 at 1800 SUMAtriptan succinate (IMITREX) tablet 2 5 mg Given 08/27/2021 5:13 PM [employer] 25 mg 25 mg, oral, ONCE NEEDED, Starting on Sole 08/27/21 at 1509, Until 08/29/21 at 1728, migraine headache documented in this encounter Active and Recently Administered Medications Times are shown in [employer]. Scheduled Medication Order 08/27/2021 08/28/2021 08/29/2021 saline FLUSH syringe 10 mL 0600 (Canceled Entry - Pr ovider: Virginia Rodriguez RN)1400 (Given - Provider: Silvia Lopez RN)2240 (Given - Provider: Raysa Martines RN) 0600 (Not Given - Provider: Raysa Martines RN - Reason: Clinically appropriate (comment))1400 (Not Given - Provider: Sonia Moreno RN - Reason: Clinically appropriate (comment))2114 (Given - Provider: Luz Liao RN) 0600 (Not Given - Provider: Zack westbrook RN - Reason: Patient sleeping) 10 mL, Intravenous, EVERY 8 HOURS, First dose on Tue08/26/21 at 2300, Until Discontinued acetaminophen (TYLENOL) tablet 650 mg 1445 (Canceled E ntry - Provider: Bree Portillo RN - Comment: see prn dose)1730 (Canceled Entry - Provider: Sonia Moreno RN) 0334 (Given - Provider: Raysa Martines RN )1545 (Given - Provider: Sonia Moreno RN) 0400 (Not Given - Provider: Zack westbrook RN - Reason: Patient sleeping) 650 mg, oral, EVERY 12 HOURS, First dose (after last modification) on Sole 08/27/21 at 1445, Until Discontinued amLODIPine (NORVASC) tablet 2.5 mg 0936 (Given - Provider: Sonia Moreno RN) 2.5 mg, oral, DAILY, First dose (after l ast modification) on 08/29/21 at 0800, Until Discontinued chlorthalidone (HYGROTON) tablet 25 mg 0936 (Given - Provider: Sonia Moreno RN) 25 mg, oral, DAILY, First dose (after la st modification) on 08/29/21 at 0800, Until Discontinued donepeziL (ARICEPT) tablet 10 mg 2234 (Given - Provider: Rina Martines RN) 2113 (Given - Provider: Luz Liao RN) 10 mg, oral, AT BEDTIME, First dose on Sole 08/27/21 at 2200, Until Discontinued DULoxetine (CYMBALTA) delayed release capsule 60 mg 08 (Given - Provider: Silvia Lopez RN) 821 (Given - Provider: Sonia Moreno RN) 09 (Given - Provider: Sonia Moreno RN) 60 mg, oral, DAILY, First dose on Sole 08/27/21 at 0800, Until Dis continued hydrOXYzine (ATARAX) tablet 25 mg 1544 ( Canceled Entry - Provider: Sonia Moreno RN - Comment: gave prn dose)2113 (Given - Provider: Luz Liao RN) 0800 (Declined - Provider: Sonia us RN) 25 mg, oral, THREE TIMES A DAY, First do se (after last modification) on Tue08/28/21 at 1545, Until Discontinued LORazepam (ATIVAN) injection (conc: 2 mg/mL) 1 mg (COM PLETED) 2009 (Given - Provider: Raysa Martines RN) 1 mg, Intravenous, ONCE, 1 dose, On Sole 08/27/21 at 2015 MAGNESIUM REPLACEMENT INTRAVENOUS - NOT FOR DOCUMENTATION PURPOS ES Intravenous, PER PROTOCOL, Starting on T hu 08/27/21 at 0729, Until 08/29/21 at 1728 metoprolol tartrate (LOPRESSOR) tablet 100 mg 172 (Given - Provider: Sonia Moreno RN) 935 (Given - Provider: Sonia Sosa ot, RN) 100 mg, oral, DAILY, First dose on Tue08/28/21 at 1645, Until Di scontinued potassium chloride (K-DUR) extended release tablet 40 mEq (COMPLETED) 0807 (Given - Provider: Silvia Lopez RN)1208 (Given - Provider: Silvia Lopez RN) 40 mEq, oral, EVERY 4 HOURS (NS), 2 dose s, First dose on Sole 08/27/21 at 0800, Last dose on Sole 08/27/21 at 1200 potassium chloride (K-DUR) extended release tablet 40 mEq (C OMPLETED) 0821 (Given - Provider: Sonia Moreno RN) 40 mEq, oral, ONCE, 1 dose, On 08/28/21 at 0700 potassium chloride (K-DUR) extended release tablet 40 mEq (COMPL ETED) 0936 (Given - Provider: Sonia Moreno RN) 40 mEq, oral, ONCE, 1 dose, On 08/29/21 at 0800 POTASSIUM REPLACEMENT INTRAVENOUS - NOT FOR DOCUMENTATION PURPOS ES Intravenous, PER PROTOCOL, Starting on T hu 08/27/21 at 0729, Until 08/29/21 at 1728 POTASSIUM REPLACEMENT ORAL - NOT FOR DOCUMENTATION PURPOSES oral, PER PROTOCOL, Starting on Sole 08/27 at 0729, Until 08/29/21 at 1728, May request packets if patient requires liquid potassium. Continuous Medication Order 08/27/2021 08/28/2021 08/29/2021 lactated Ringers (LR) IV infusion (CANCELED) 0004 (New Bag - Provider: Virginia Rodriguez RN)1536 (Rate Change - Provider: Bree Portillo RN) at 75 mL/hr, Intravenous, CONTINUOUS, St arting on Tue08/26/21 at 2300, Until Tue08/28/21 at 1801 PRN Medication Order 08/27/2021 08/28/2021 08/29/2021 saline FLUSH syringe 10 mL 0813 (Given - Provi adolph: Whit Toro RN) 10 mL, Intravenous, NEEDED, Starting on Tue08/26/21 at 2248, Until 08/29/21 at 1728, Line Care acetaminophen (TYLENOL) tablet 1,000 mg (COMPLETED) (Given - Provider: Bree Portillo RN) 1,000 mg, oral, ONCE NEEDED, 1 dose, Starting on Tue08/26/21 at 2132, Until Discontinued, fever hydrALAZINE (APRESOLINE) injection 10 mg 154 (Given - Provider: Sonia Moreno RN) 10 mg, Intravenous, EVERY 6 HOURS NEE DED, Starting on Tue08/28/21 at 1537, Until 08/29/21 at 1728, for SBP GREATER THAN, for SBP over 180 or DBP over 100 hydrOXYzine (ATARAX) tablet 25 mg (CANCELED) 152 (Given - Provider: Sonia Moreno RN) 25 mg, oral, THREE TIMES A DAY NEEDED , Starting on Tue08/28/21 at 1322, Until Tue08/28/21 at 1537, See Comments, anxiety hydrOXYzine pamoate (VISTARIL) capsule 25 mg 25 mg, oral, EVERY 6 HOURS NEEDED, St arting on 08/29/21 at 0308, Until 08/29/21 at 1728, anxiety lidocaine (LMX-4) topical cream 1 Application topical, NEEDED, Starting on 08/26 at 2248, Until 08/29/21 at 1728, IV start or restart if patient prefers a needleless local anesthetic. lidocaine / sod bicarb (buffered lidocaine) syringe for IV start s 0.1-0.3 mL 0.1-0.3 mL, Intradermal, NEEDED, Star ting on Tue08/26/21 at 2248, Until 08/29/21 at 1728, IV line placement, IV start or restart lidocaine 1% (PF) (XYLOCAINE) injection 0.1-0.3 mL 08 (Given - Provider: Whit Toro RN) 0.1-0.3 mL, Intradermal, NEEDED, Star ting on Tue08/26/21 at 2248, Until 08/29/21 at 1728, IV start or restart LORazepam (ATIVAN) injection (conc: 2 mg/mL) 1 mg (COM PLETED) 2152 (Given - Provider: Jamar Meza RN) 1 mg, Intravenous, ONCE NEEDED, 1 dos e, Starting on Sole 08/27/21 at 2139, Until Sole 08/27/21 at 2153, for MRI LORazepam (ATIVAN) injection (conc: 2 mg/mL) 1-2 mg 1-2 mg, Intravenous, EVERY 2 MINUTE PRN, Starting on Tue08/26/21 at 2248, Until 08/29/21 at 1728, Seizure activity LORazepam (ATIVAN) injection (conc: 2 mg/mL) 2 mg 2 mg, Intravenous, ONCE NEEDED, 1 dos e, Starting on Tue08/26/21 at 1819, Until 08/29/21 at 1728, seizure SUMAtriptan succinate (IMITREX) tablet 25 mg 1713 (Giv en - Provider: Sonia Moreno RN) 25 mg, oral, ONCE NEEDED, Starting on Sole 08/27/21 at 1509, Until 08/29/21 at 1728, migraine headache documented in this encounter Additional Health Concerns Infection Onset Date Last Indicated Resolved Time COVID-19/Influenza Rule-Out 08/26/2021 08/26/202108/09 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
--- OUTSIDE RECORDS SUMMARY | 2022-06-13 21:36 | XMS_ITS | Encounter Summary ---
:1975 Author Organization [facility] Address [address] [place] [address] Care Team Providers Name Role Phone [facility] Unavailable [phone] Mar Alfaro DO Primary Care Provider Encounter Details Date Type Department Care Team Description 08/26/2021 Travel Social History Tobacco Use Types Packs/Day [...] with No / Unsure 08/26/2021 3:30 PM MEAL COOK someone who was confirmed or suspected to have Coronavirus / COVID-19? documented as of this encounter Plan of Treatment Not on filedocumented as of this encounter Visit Diagnoses Not on filedocumented in this encounter Additional Health Concerns Infection Onset Date Last Indicated Resolved Time COVID-19/Influenza Rule-Out 08/26/2021 08/26/202108/09 8:53 AM MEAL COOK documented as of this encounter Care Teams Thread Machine Operator Relationship Specialty Start Date End Date [facility] PCP - Primary Care Clinic [address] [place] [address] [place] [phone] Mar Alfaro DO PCP - General Family Medicine 07/09/21 [address] [place] [id number] documented as of this encounter
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
--- OUTSIDE RECORDS SUMMARY | 2022-06-13 21:37 | XMS_ITS | Encounter Summary ---
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 HEMATOLOGY ORDERABLE Performing Organization Address City/[facility] Phon e Number [address] [address] LABORATORY Extra Tube-Blood Bank (Lab Use Only) (07/09/2021 7:30 AM PLANTING MACHINE OPERATOR) Specimen Anatomical Collection Method Collection Time Receive d Time (Source) Location / / Volume Laterality Blood 07/09/2021 7:30 AM 7:44 PLANTING MACHINE OPERATOR AM PLANTING MACHINE OPERATOR Maggie Chambers MD BLOOD BANK ORDERABLE Performing Organization Address [facility] Phon e Number [address] [phone] LABORATORY documented in this encounter Visit Diagnoses Diagnosis Edema, unspecified type - Primary documented in this encounter Administered Medications Inactive Administered Medications - up to 3 most recent administrations Medication Order MAR Action Action Date Dose Rate Site calcium gluconate injection 1 g Given 07/09/2021 9:08 AM PLANTING MACHINE OPERATOR 1 g 1 g, Intravenous, ONCE, 1 dose, On Sole 07/09/21 at 0900 furosemide (PF) (LASIX) injection 40 mg Given 07/09/2021 9:09 AM PLANTING MACHINE OPERATOR 40 mg 40 mg, Intravenous, ONCE, 1 dose, On Sole 07/09/21 at 0900 documented in this encounter Active and Recently Administered Medications Times are shown in PLANTING MACHINE OPERATOR. Scheduled Medication Order 07/07/2021 07/08/2021 07/09/2021 calcium gluconate injection 1 g (COMPLETED) 907 (Given - Provider: Tamika Mckeon RN) 1 g, Intravenous, ONCE, 1 dose, On Sole 07/09/21 at 0900 furosemide (PF) (LASIX) injection 40 mg (COMPLETED) 908 (Given - Provider: Tamika Mckeon RN) 40 mg, Intravenous, ONCE, 1 dose, On Sole 07/09/21 at 0900 documented in this encounter Additional Health Concerns Infection Onset Date Last Indicated Resolved Time COVID-19 Rule-Out 07/09/2021 07/09/2021 07/09/2021 2:4 9 PM PLANTING MACHINE OPERATOR documented as of this encounter Care Teams Claims Adjustor Relationship Specialty Start Date End Date [facility] PCP - Primary Care Clinic [address] [place] [address] [address] [place] [phone] Mar Alfaro DO PCP - General Family Medicine 07/09/21 [address] [place] [address] documented as of this encounter
--- OUTSIDE RECORDS SUMMARY | 2022-06-13 21:37 | XMS_ITS | Encounter Summary ---
:1975 Author Organization [facility] Address [address] [place] [address] Care Team Providers Name Role Phone [facility] Unavailable [phone] Mar Alfaro DO Primary Care Provider Encounter Details Date Type Department Care Team Description 07/09/2021 Travel Social History Tobacco Use Types Packs/Day Years Used Date Smoking Tobacco: Every Day Cigarettes 0.3 Smokeless Tobacco: Never Alcohol Use Standard Drinks/Week Comments Yes 0 (1 standard drink = 0.6 oz pure alcoho l) social Sex Assigned at Date Recorded Not on file COVID-19 Exposure Response Date Recorded In the last month, have you been in contact with Yes 07/09/2021 7:23 AM TRAUMA PROGRAM MANAGER someone who was confirmed or suspected to have Coronavirus / COVID-19? documented as of this encounter Plan of Treatment Not on filedocumented as of this encounter Visit Diagnoses Not on filedocumented in this encounter Additional Health Concerns Infection Onset Date Last Indicated Resolved Time COVID-19 Rule-Out 07/09/2021 07/09/2021 07/09/2021 2:4 9 PM TRAUMA PROGRAM MANAGER COVID-19 07/09/2021 07/09/2021 08/08/2021 2:47 AM TRAUMA PROGRAM MANAGER documented as of this encounter Care Teams Procurement Technician Relationship Specialty Start Date End Date [facility] PCP - Primary Care Clinic [address] [place] [phone] Mar Alfaro DO PCP - General Family Medicine 07/09/[address] [place] [address] [address] documented as of this encounter
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
--- OUTSIDE RECORDS SUMMARY | 2022-06-13 21:37 | XMS_ITS | Encounter Summary ---
:1975 Author Organization [facility] Address [address] [place] [id number] Care Team Providers Name Role Phone Line, Ed Referral Primary Care Provider Line, Ed Referral Unavailable Daya Galicia MD Primary Care Provider Jesse Syed [facility] Unavailable Unavailable Clinic, [facility] Unavailable [phone] Mar Alfaro DO Primary Care Provider Encounter Details Date Type Department Care Team Description 05/11/2013 NMR Sports Book Board Attendant Sports Book Board Attendant Rhys Orellana MD [address] [place] [id number] Social History Tobacco Use Types Packs/Day Years Used Date Smoking Tobacco: Every Day Cigarettes 0.3 Alcohol Use Standard Drinks/Week Comments Yes 0 (1 standard drink = 0.6 oz pure alcoho l) social Sex Assigned at Date Recorded Not on file documented as of this encounter Progress Notes Rhys Orellana MD - 05/11/2013 10:36 AM CDT CC: I reviewed her recent plain cervical and thoracic films from [place] done May 09, 2013. The C5 fracture appears stable in comparison to the prior studies, as does the T4 fracture. 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 COVID-19 07/09/2021 07/09/2021 08/08/2021 2:47 AM GREENHOUSE WORKER COVID-19/Influenza Rule-Out 08/26/2021 08/26/202108/09 8:53 AM GREENHOUSE WORKER documented as of this encounter Care Teams Filling Machine Operator Relationship Specialty Start Date End Date Line, Ed Referral PCP - General 03/04/13 07/18/13 ED REFERRAL LINE - ED USE ONLY Line, Ed Referral PCP - Primary Care 03/04/13 07/18/13 ED REFERRAL LINE - ED USE Clinic ONLY Daya Galicia MD PCP - General 07/19/13 07/08/[address] [place] [id number] Jesse Syed PCP - Primary Care 07/19/13 07/08/21 [facility] PCP - Primary Care 07/09/21 [facility] [address] [place] [id number] aMr Alfaro DO PCP - General Family Medicine 07/09/21 [address] [place] [address] documented as of this encounter
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
--- OUTSIDE RECORDS SUMMARY | 2022-06-13 21:38 | XMS_ITS | Encounter Summary ---
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 SERUM Timed Procedure 03/12/2013 4:00 Results for PM CDT this procedure are in the results section. POCT GLU METER Routine 03/12/2013 10:35 Results f or AM CDT this procedure are in the results section. SODIUM, SERUM Timed Procedure 03/12/2013 10:22 Results for AM CDT this procedure are in the results section. POTASSIUM Timed Procedure 03/12/2013 10:22 Results for AM CDT this procedure are in the results section. POCT GLU METER Routine 03/12/2013 4:13 Results fo r AM CDT this procedure are in the results section. MAGNESIUM Timed Procedure 03/12/2013 3:40 Results f or AM CDT this procedure are in the results section. OSMOLALITY, BLOOD Timed Procedure 03/12/2013 3:40 Resu lts for AM CDT this procedure are in the results section. BASIC METAB PROFILE Timed Procedure 03/12/2013 3:40 Re sults for AM CDT this procedure are in the results section. SODIUM, URINE-24 HOUR Routine 03/12/2013 3:40 Res ults for AM CDT this procedure are in the results section. CBC Timed Procedure 03/12/2013 3:40 Results f or (HGB,HCT,WBC,RBC,PLAT AM CDT this p rocedure ELET) are in the results section. SODIUM, SERUM Timed Procedure 03/11/2013 11:03 Results for PM CDT this procedure are in the results section. POCT GLU METER Routine 03/11/2013 10:04 Results f or PM CDT this procedure are in the results section. POCT GLU METER Routine 03/11/2013 4:41 Results fo r PM CDT this procedure are in the results section. SODIUM, SERUM Timed Procedure 03/11/2013 4:00 Results for PM CDT this procedure are in the results section. SODIUM, SERUM Timed Procedure 03/11/2013 11:00 Results for AM CDT this procedure are in the results section. POCT GLU METER Routine 03/11/2013 9:49 Results fo r AM CDT this procedure are in the results section. MAGNESIUM Timed Procedure 03/11/2013 4:50 Results f or AM CDT this procedure are in the results section. OSMOLALITY, BLOOD Timed Procedure 03/11/2013 4:50 Resu lts for AM CDT this procedure are in the results section. BASIC METAB PROFILE Timed Procedure 03/11/2013 4:50 Re sults for AM CDT this procedure are in the results section. SODIUM, URINE-24 HOUR Routine 03/11/2013 4:50 Res ults for AM CDT this procedure are in the results section. CBC Timed Procedure 03/11/2013 4:50 Results f or (HGB,HCT,WBC,RBC,PLAT AM CDT this p rocedure ELET) are in the results section. POCT GLU METER Routine 03/11/2013 4:01 Results fo r AM CDT this procedure are in the results section. SODIUM, SERUM Timed Procedure 03/10/2013 11:50 Results for PM CDT this procedure are in the results section. POCT GLU METER Routine 03/10/2013 10:15 Results f or PM CDT this procedure are in the results section. POCT GLU METER Routine 03/10/2013 4:51 Results fo r PM CDT this procedure are in the results section. SODIUM, SERUM Timed Procedure 03/10/2013 3:59 Results for PM CDT this procedure are in the results section. POTASSIUM Timed Procedure 03/10/2013 3:59 Results f or PM CDT this procedure are in the results section. POCT GLU METER Routine 03/10/2013 10:20 Results f or AM CDT this procedure are in the results section. SODIUM, SERUM Timed Procedure 03/10/2013 9:58 Results for AM CDT this procedure are in the results section. XR CHEST AP PORT Routine 03/10/2013 6:39 Results for AM CDT this procedure are in the results section. MAGNESIUM Timed Procedure 03/10/2013 4:10 Results f or AM CDT this procedure are in the results section. OSMOLALITY, BLOOD Timed Procedure 03/10/2013 4:10 Resu lts for AM CDT this procedure are in the results section. BASIC METAB PROFILE Timed Procedure 03/10/2013 4:10 Re sults for AM CDT this procedure are in the results section. SODIUM, URINE-24 HOUR Routine 03/10/2013 4:10 Res ults for AM CDT this procedure are in the results section. CBC Timed Procedure 03/10/2013 4:10 Results f or (HGB,HCT,WBC,RBC,PLAT AM CDT this p rocedure ELET) are in the results section. SODIUM, SERUM Timed Procedure 03/09/2013 10:07 Results for PM CDT this procedure are in the results section. POCT GLU METER Routine 03/09/2013 9:41 Results fo r PM CDT this procedure are in the results section. POCT GLU METER Routine 03/09/2013 4:33 Results fo r PM CDT this procedure are in the results section. SODIUM, SERUM Timed Procedure 03/09/2013 4:21 Results for PM CDT this procedure are in the results section. SODIUM, SERUM Timed Procedure 03/09/2013 10:59 Results for AM CDT this procedure are in the results section. POTASSIUM Timed Procedure 03/09/2013 10:59 Results for AM CDT this procedure are in the results section. POCT GLU METER Routine 03/09/2013 9:42 Results fo r AM CDT this procedure are in the results section. TRIGLYCERIDES, SERUM Routine 03/09/2013 5:43 Resu lts for AM CDT this procedure are in the results section. CK TOTAL Routine 03/09/2013 5:43 Results for AM CDT this procedure are in the results section. MAGNESIUM Timed Procedure 03/09/2013 5:43 Results f or AM CDT this procedure are in the results section. BASIC METAB PROFILE Timed Procedure 03/09/2013 5:43 Re sults for AM CDT this procedure are in the results section. SODIUM, URINE-24 HOUR Routine 03/09/2013 5:43 Res ults for AM CDT this procedure are in the results section. CBC/DIFF Routine 03/09/2013 5:43 Results for AM CDT this procedure are in the results section. POCT GLU METER Routine 03/09/2013 3:49 Results fo r AM CDT this procedure are in the results section. POTASSIUM Routine 03/09/2013 1:00 Results for AM CDT this procedure are in the results section. SODIUM, SERUM Timed Procedure 03/08/2013 10:20 Results for PM CDT this procedure are in the results section. POCT GLU METER Routine 03/08/2013 9:52 Results fo r PM CDT this procedure are in the results section. POTASSIUM Timed Procedure 03/08/2013 6:00 Results f or PM CDT this procedure are in the results section. SODIUM, SERUM Timed Procedure 03/08/2013 3:58 Results for PM CDT this procedure are in the results section. POCT GLU METER Routine 03/08/2013 3:37 Results fo r PM CDT this procedure are in the results section. PROCALCITONIN Routine 03/08/2013 2:00 Results for PM CDT this procedure are in the results section. XR FEMUR PORT RT Routine 03/08/2013 11:42 Results for AM CDT this procedure are in the results section. XR CHEST AP PORT Routine 03/08/2013 11:41 Results for AM CDT this procedure are in the results section. SODIUM, SERUM STAT 03/08/2013 10:39 Results fo r AM CDT this procedure are in the results section. POTASSIUM Timed Procedure 03/08/2013 10:39 Results for AM CDT this procedure are in the results section. CULT-BLOOD Routine 03/08/2013 10:38 Results for AM CDT this procedure are in the results section. CULT-BLOOD Routine 03/08/2013 10:38 Results for AM CDT this procedure are in the results section. CULT-URINE Routine 03/08/2013 10:38 Results for AM CDT this procedure are in the results section. CULT-SPUTUM (INC. Routine 03/08/2013 10:38 Result s for GRAM STAIN) AM CDT this procedure are in the results section. POCT GLU METER Routine 03/08/2013 9:51 Results fo r AM CDT this procedure are in the results section. OSMOLALITY, BLOOD Timed Procedure 03/08/2013 8:00 Resu lts for AM CDT this procedure are in the results section. CT HEAD W/O CON W/O Routine 03/08/2013 5:05 Resul ts for 3D AM CDT this procedure are in the results section. POCT GLU METER Routine 03/08/2013 4:01 Results fo r AM CDT this procedure are in the results section. TRIGLYCERIDES, SERUM Routine 03/08/2013 4:00 Resu lts for AM CDT this procedure are in the results section. CK TOTAL Routine 03/08/2013 4:00 Results for AM CDT this procedure are in the results section. MAGNESIUM Timed Procedure 03/08/2013 4:00 Results f or AM CDT this procedure are in the results section. OSMOLALITY, BLOOD Timed Procedure 03/08/2013 4:00 Resu lts for AM CDT this procedure are in the results section. BASIC METAB PROFILE Timed Procedure 03/08/2013 4:00 Re sults for AM CDT this procedure are in the results section. SODIUM, URINE-24 HOUR Routine 03/08/2013 4:00 Res ults for AM CDT this procedure are in the results section. CBC Timed Procedure 03/08/2013 4:00 Results f or (HGB,HCT,WBC,RBC,PLAT AM CDT this p rocedure ELET) are in the results section. OSMOLALITY, BLOOD Timed Procedure 03/08/2013 12:05 Res ults for AM CDT this procedure are in the results section. US VENOUS EXTREM LOW Routine 03/07/2013 11:16 Res ults for BILAT PM CDT this procedure are in the results section. POCT GLU METER Routine 03/07/2013 10:40 Results f or PM CDT this procedure are in the results section. SODIUM, SERUM Routine 03/07/2013 9:24 Results for PM CDT this procedure are in the results section. POTASSIUM Timed Procedure 03/07/2013 9:24 Results f or PM CDT this procedure are in the results section. OSMOLALITY, BLOOD Timed Procedure 03/07/2013 9:24 Resu lts for PM CDT this procedure are in the results section. POCT GLU METER Routine 03/07/2013 4:59 Results fo r PM CDT this procedure are in the results section. SODIUM, SERUM Timed Procedure 03/07/2013 3:56 Results for PM CDT this procedure are in the results section. POTASSIUM Timed Procedure 03/07/2013 3:56 Results f or PM CDT this procedure are in the results section. OSMOLALITY, BLOOD Timed Procedure 03/07/2013 3:56 Resu lts for PM CDT this procedure are in the results section. CULT-SPUTUM (INC. Routine 03/07/2013 2:49 Results for GRAM STAIN) PM CDT this procedure are in the results section. XR CHEST AP PORT DWAIN 03/07/2013 12:28 Results for PM CDT this procedure are in the results section. SODIUM, SERUM Timed Procedure 03/07/2013 12:28 Results for PM CDT this procedure are in the results section. POTASSIUM Timed Procedure 03/07/2013 12:28 Results for PM CDT this procedure are in the results section. OSMOLALITY, BLOOD Timed Procedure 03/07/2013 12:28 Res ults for PM CDT this procedure are in the results section. POTASSIUM Routine 03/07/2013 9:46 Results for AM CDT this procedure are in the results section. POCT GLU METER Routine 03/07/2013 9:32 Results fo r AM CDT this procedure are in the results section. OSMOLALITY, BLOOD Timed Procedure 03/07/2013 9:12 Resu lts for AM CDT this procedure are in the results section. CT HEAD W/O CON W/O DWAIN 03/07/2013 8:56 Resul ts for 3D AM CDT this procedure are in the results section. EXTRA TUBE-URINE Routine 03/07/2013 5:35 AM CDT TRIGLYCERIDES, SERUM Routine 03/07/2013 5:33 Resu lts for AM CDT this procedure are in the results section. CK TOTAL Routine 03/07/2013 5:33 Results for AM CDT this procedure are in the results section. MAGNESIUM Timed Procedure 03/07/2013 5:33 Results f or AM CDT this procedure are in the results section. BASIC METAB PROFILE Timed Procedure 03/07/2013 5:33 Re sults for AM CDT this procedure are in the results section. CBC Timed Procedure 03/07/2013 5:33 Results f or (HGB,HCT,WBC,RBC,PLAT AM CDT this p rocedure ELET) are in the results section. EXTRA TUBE-SST (LAB Routine 03/07/2013 5:10 USE ONLY) AM CDT EXTRA TUBE PST Routine 03/07/2013 5:10 AM CDT POCT GLU METER Routine 03/07/2013 4:32 Results fo r AM CDT this procedure are in the results section. SODIUM, SERUM Timed Procedure 03/06/2013 11:30 Results for PM CDT this procedure are in the results section. OSMOLALITY, BLOOD Timed Procedure 03/06/2013 11:30 Res ults for PM CDT this procedure are in the results section. POCT GLU METER Routine 03/06/2013 10:32 Results f or PM CDT this procedure are in the results section. OSMOLALITY, BLOOD Timed Procedure 03/06/2013 8:12 Resu lts for PM CDT this procedure are in the results section. SODIUM, SERUM Timed Procedure 03/06/2013 4:52 Results for PM CDT this procedure are in the results section. POTASSIUM Timed Procedure 03/06/2013 4:52 Results f or PM CDT this procedure are in the results section. OSMOLALITY, BLOOD Timed Procedure 03/06/2013 4:52 Resu lts for PM CDT this procedure are in the results section. POCT GLU METER Routine 03/06/2013 4:34 Results fo r PM CDT this procedure are in the results section. SODIUM, SERUM Timed Procedure 03/06/2013 1:52 Results for PM CDT this procedure are in the results section. OSMOLALITY, BLOOD Timed Procedure 03/06/2013 1:52 Resu lts for PM CDT this procedure are in the results section. POCT GLU METER Routine 03/06/2013 10:44 Results f or AM CDT this procedure are in the results section. PREALBUMIN Routine 03/06/2013 9:31 Results for AM CDT this procedure are in the results section. OSMOLALITY, BLOOD Timed Procedure 03/06/2013 9:11 Resu lts for AM CDT this procedure are in the results section. SODIUM, URINE-24 HOUR Routine 03/06/2013 6:19 Res ults for AM CDT this procedure are in the results section. XR CHEST AP PORT Routine 03/06/2013 6:02 Results for AM CDT this procedure are in the results section. TRIGLYCERIDES, SERUM Routine 03/06/2013 5:06 Resu lts for AM CDT this procedure are in the results section. CK TOTAL Routine 03/06/2013 5:06 Results for AM CDT this procedure are in the results section. MAGNESIUM Timed Procedure 03/06/2013 5:06 Results f or AM CDT this procedure are in the results section. OSMOLALITY, BLOOD Timed Procedure 03/06/2013 5:06 Resu lts for AM CDT this procedure are in the results section. BASIC METAB PROFILE Timed Procedure 03/06/2013 5:06 Re sults for AM CDT this procedure are in the results section. CBC Timed Procedure 03/06/2013 5:06 Results f or (HGB,HCT,WBC,RBC,PLAT AM CDT this p rocedure ELET) are in the results section. POCT GLU METER Routine 03/06/2013 4:25 Results fo r AM CDT this procedure are in the results section. POCT GASES ARTERIAL Routine 03/06/2013 4:20 Resul ts for AM CDT this procedure are in the results section. OSMOLALITY, BLOOD Timed Procedure 03/05/2013 11:59 Res ults for PM CDT this procedure are in the results section. SODIUM, SERUM Timed Procedure 03/05/2013 11:54 Results for PM CDT this procedure are in the results section. POCT GLU METER Routine 03/05/2013 10:16 Results f or PM CDT this procedure are in the results section. SODIUM, SERUM Timed Procedure 03/05/2013 7:42 Results for PM CDT this procedure are in the results section. POCT GLU METER Routine 03/05/2013 4:44 Results fo r PM CDT this procedure are in the results section. SODIUM, SERUM Timed Procedure 03/05/2013 11:11 Results for AM CDT this procedure are in the results section. SODIUM, SERUM Timed Procedure 03/05/2013 11:11 Results for AM CDT this procedure are in the results section. OSMOLALITY, BLOOD Timed Procedure 03/05/2013 11:11 Res ults for AM CDT this procedure are in the results section. OSMOLALITY, BLOOD Timed Procedure 03/05/2013 11:11 Res ults for AM CDT this procedure are in the results section. ELECTROLYTES Timed Procedure 03/05/2013 11:11 Results for AM CDT this procedure are in the results section. POCT GLU METER Routine 03/05/2013 10:18 Results f or AM CDT this procedure are in the results section. SODIUM, SERUM Timed Procedure 03/05/2013 8:16 Results for AM CDT this procedure are in the results section. OSMOLALITY, BLOOD Timed Procedure 03/05/2013 8:16 Resu lts for AM CDT this procedure are in the results section. XR CHEST AP PORT STAT 03/05/2013 6:44 Results for AM CDT this procedure are in the results section. CT HEAD W/O CON W/O STAT 03/05/2013 4:59 Resul ts for 3D AM CDT this procedure are in the results section. MAGNESIUM Routine 03/05/2013 4:39 Results for AM CDT this procedure are in the results section. OSMOLALITY, BLOOD Routine 03/05/2013 4:39 Results for AM CDT this procedure are in the results section. BASIC METAB PROFILE Routine 03/05/2013 4:39 Resul ts for AM CDT this procedure are in the results section. CBC Routine 03/05/2013 4:39 Results for (HGB,HCT,WBC,RBC,PLAT AM CDT this p rocedure ELET) are in the results section. PROTIME/INR Routine 03/05/2013 4:39 Results for AM CDT this procedure are in the results section. POCT GLU METER Routine 03/05/2013 3:56 Results fo r AM CDT this procedure are in the results section. OSMOLALITY, BLOOD Timed Procedure 03/04/2013 11:50 Res ults for PM CDT this procedure are in the results section. TRIGLYCERIDES, SERUM Routine 03/04/2013 11:42 Res ults for PM CDT this procedure are in the results section. SODIUM, SERUM Timed Procedure 03/04/2013 11:42 Results for PM CDT this procedure are in the results section. ELECTROLYTES Timed Procedure 03/04/2013 11:42 Results for PM CDT this procedure are in the results section. SODIUM, URINE-24 HOUR Routine 03/04/2013 10:30 Re sults for PM CDT this procedure are in the results section. CULT-ADMIT (MRSA) Routine 03/04/2013 10:25 Result s for PM CDT this procedure are in the results section. XR FEMUR PORT RT STAT 03/04/2013 8:47 Results for PM CDT this procedure are in the results section. XR HAND 3 VW RT PORT STAT 03/04/2013 8:47 Resu lts for PM CDT this procedure are in the results section. CT RECONSTRUCTION STAT 03/04/2013 8:31 Results for SPINE LUMBAR PM CDT this procedure are in the results section. CT RECONSTRUCTION STAT 03/04/2013 8:30 Results for SPINE THORACIC PM CDT this procedur e are in the results section. CT TRAUMA STAT 03/04/2013 8:27 Results for CHEST/ABD/PEL W CON PM CDT this pro cedure are in the results section. CT FACIAL BONES STAT 03/04/2013 7:57 Results f or PM CDT this procedure are in the results section. CT SPINE CERVICAL W/O STAT 03/04/2013 7:56 Res ults for CON PM CDT this procedure are in the results section. CT HEAD W/O CON W/O STAT 03/04/2013 7:56 Resul ts for 3D PM CDT this procedure are in the results section. XR CHEST AP PORT STAT 03/04/2013 7:35 Results for PM CDT this procedure are in the results section. TRAUMA/STROKE STAT 03/04/2013 7:30 Results for CREAT/GFR PM CDT this procedure are in the results section. TYPE AND SCREEN STAT 03/04/2013 7:30 Results f or PM CDT this procedure are in the results section. ALCOHOL (ETOH) STAT 03/04/2013 7:30 Results fo r PM CDT this procedure are in the results section. LACTIC ACID STAT 03/04/2013 7:30 Results for PM CDT this procedure are in the results section. GASES VENOUS STAT 03/04/2013 7:30 Results for PERIPHERAL PM CDT this procedure are in the results section. GLUCOSE, RANDOM STAT 03/04/2013 7:30 Results f or PM CDT this procedure are in the results section. OSMOLALITY, BLOOD STAT 03/04/2013 7:30 Results for PM CDT this procedure are in the results section. ELECTROLYTES STAT 03/04/2013 7:30 Results for PM CDT this procedure are in the results section. PROTIME/INR STAT 03/04/2013 7:30 Results for PM CDT this procedure are in the results section. PLATELET COUNT STAT 03/04/2013 7:30 Results fo r PM CDT this procedure are in the results section. HEMOGLOBIN STAT 03/04/2013 7:30 Results for PM CDT this procedure are in the results section. EXTRA TUBE-BLOOD BANK STAT 03/04/2013 7:27 PM CDT ABORH CONFIRM (LAB STAT 03/04/2013 7:27 Result s for USE ONLY) PM CDT this procedure are in the results section. documented in this encounter Results (ABNORMAL) POCT Glucose Meter (03/15/2013 4:29 AM CDT)Only the most recent of40 resultswithin the time period is included. athologist Signature GLUCOSE WB 109 (H) 60 - 100 03/15/2013 [facility] METER mg/dL 11:15 AM CDT LABORATORY Specimen Anatomical Collection Method Collection Time Receive d Time (Source) Location / / Volume Laterality Blood specimen 03/15/2013 4:29 AM 013 (specimen) CDT 11:15 AM CDT Mushtaq Cleary MD LAB POINT OF CARE TEST RESUL TS Performing Organization Address City/State/ZIP Code Phon e Number [address] [address] LABORATORY [facility] [address] [place], [place] [address] Sodium, Serum (03/15/2013 3:55 AM CDT)Only the most recent of34 resultswithin the time period is included. athologist Signature SODIUM 141 133 - 144 03/15/2013 [facility] mMol/L 4:39 AM CDT LABORATORY Specimen Anatomical Collection Method Collection Time Receive d Time (Source) Location / / Volume Laterality Blood specimen 03/15/2013 3:55 AM 013 4:10 (specimen) CDT AM CDT Miles Kevin MD CHEMISTRY ORDERABLE Performing Organization Address City/[facility]/ZIP Code Phon e Number [facility] [address] [place] [address] LABORATORY [facility] [address] [place], [place] [address] Magnesium (03/15/2013 3:55 AM CDT)Only the most recent of11 resultswithin the time period is included. athologist Signature Magnesium 2.5 1.7 - 2.5 03/15/2013 [facility] mg/dL 4:39 AM CDT LABORATORY Specimen Anatomical Collection Method Collection Time Receive d Time (Source) Location / / Volume Laterality Blood specimen 03/15/2013 3:55 AM 013 4:10 (specimen) CDT AM CDT Carson Vazquez MD CHEMISTRY ORDERABLE Performing Organization Address [facility]/ZIP Code Phon e Number [facility] [address] [place] [address] [phone] LABORATORY [facility] [address] [place], [place] [address] Potassium, Serum (03/15/2013 3:55 AM CDT)Only the most recent of16 resultswithin the time period is included. athologist Signature POTASSIUM 3.8 3.5 - 5.0 03/15/2013 [facility] mMol/L 4:39 AM CDT LABORATORY Specimen Anatomical Collection Method Collection Time Receive d Time (Source) Location / / Volume Laterality Blood specimen 03/15/2013 3:55 AM 013 4:10 (specimen) CDT AM CDT Carson Vazquez MD CHEMISTRY ORDERABLE Performing Organization Address City/[facility]/ZIP Code Phon e Number [facility] [address] [place] [address] LABORATORY [facility] [address] [place], [place] [address] Sodium, Urine Random (03/14/2013 3:55 AM CDT)Only the most recent of9 results within the time period is included. athologist Signature SODIUM, URINE 49 mMol/L 03/14/2013 [facility] RANDOM 4:20 AM CDT LABORATORY Specimen Anatomical Collection Method Collection Time Receive d Time (Source) Location / / Volume Laterality Urine specimen 03/14/2013 3:55 AM 013 3:58 (specimen) CDT AM CDT Faizan Fismhan MD CHEMISTRY ORDERABLE Performing Organization Address City/[facility]/ZIP [facility] Phon e Number [address] [place] [address] [address] Prealbumin (03/14/2013 3:50 AM CDT)Only the most recent of3 resultswithin the time period is included. athologist Signature PREALBUMIN 21 18 - 38 03/14/2013 [facility] mg/dL 4:30 AM CDT LABORATORY Specimen Anatomical Collection Method Collection Time Receive d Time (Source) Location / / Volume Laterality Blood specimen 03/14/2013 3:50 AM 013 3:59 (specimen) CDT AM CDT Carson Vazquez MD CHEMISTRY ORDERABLE Performing Organization Address City/[facility] Phon e Number [address] [phone] [address] Osmolality, Blood (03/14/2013 3:50 AM CDT)Only the most recent of25 results within the time period is included. athologist Signature Osmolality, 286 275 - 295 03/14/2013 [facility] Blood mOsm/Kg 8:01 AM CDT LABORATORY Specimen Anatomical Collection Method Collection Time Receive d Time (Source) Location / / Volume Laterality Blood specimen 03/14/2013 3:50 AM 013 3:59 (specimen) CDT AM CDT Carson Vazquez MD CHEMISTRY ORDERABLE Performing Organization Address City/State/ZIP Code Phon e Number [facility] [address] [address] LABORATORY [facility] [address] [address] XR CHEST AP PORT (03/13/2013 9:37 AM CDT)Only the most recent of7 resultswithin the time period is included. Anatomical Region Laterality Modality Chest Computed Radiography Specimen (Source) Anatomical Collection Method Collection Time Re ceived Time Location / / Volume Laterality 03/13/2013 9:38 AM CDT Impressions 03/13/2013 9:48 AM CDT IMPRESSION: The endotracheal tube has been removed. ??A tracheostomy tube has been placed. ??An enteric feeding tube and left subclavian intravenous catheter remain in place. ??The heart size and pulmonary vasculat ure are within normal limits. ??Stable l inear left basilar opacity most this with left basilar atelectasis or scarring. Narrative 03/13/2013 9:48 AM CDT EXAM: ??SINGLE PORTABLE SEMI-UPRIGHT AP VIEW CHEST : March 13, 2013 at 0930 hrs . COMPARISON: 03/10/2013. CLINICAL DATA: Infiltrate. VIEWS: A single portable view of the arsl[address] was obtained. FINDINGS/ Procedure Note Title I Instructional Assistant, Jon Paulino MD - 03/13/2013Formattin g of this note might be different from the original. EXAM: SINGLE PORTABLE SEMI-UPRIGHT AP EW CHEST : March 13, 2013 at 0930 hrs . COMPARISON: 03/10/2013. CLINICAL DATA: Infiltrate. VIEWS: A single portable view of the [address]sl[address] was obtained. FINDINGS/ IMPRESSION: The endotracheal tube has been removed. A tracheostomy tube has been placed. An enteric feeding tube and left subclavian intravenous catheter remain in place. The heart size and pulmonary vasculature are within normal limits. Stable linear left basila r opacity most this with left basilar atelectasis or scarring. Miles Kevin MD XRAY ORDERABLE (ABNORMAL) Basic Metabolic Profile (03/12/2013 3:40 AM CDT)Only the most recent of8 resultswithin the time period is included. [facility] gist Method Time Signature SODIUM 138 133 - 144 03/12/2013 [facility] mMol/L 4:13 AM CDT LABORATORY POTASSIUM 3.7 3.5 - 5.0 03/12/2013 [facility] mMol/L 4:13 AM CDT LABORATORY CHLORIDE 107 99 - 111 03/12/2013 [facility] mMol/L 4:13 AM CDT LABORATORY CARBON DIOXIDE 26.0 21.0 - 03/12/2013 [facility] 30.0 4:13 AM CDT LABORATORY mMol/L BUN (UREA 13 6 - 24 03/12/2013 [facility] NITRO) mg/dL 4:13 AM CDT LABORATORY CREATININE 0.35 (L) 0.40 - 03/12/2013 [facility] 1.10 mg/dL 4:13 AM CDT LABORATORY EST GFR >60 >60 mL/min 03/12/2013 [facility] (CKD-EPI) 4:13 AM CDT LABORATORY EST GFR IF >60 >60 mL/min 03/12/2013 [facility] AM 4:13 AM CDT LABORATORY GLUCOSE 122 (H) 60 - 100 03/12/2013 [facility] mg/dL 4:13 AM CDT LABORATORY CALCIUM, SERUM 8.4 (L) 8.6 - 10.2 03/12/2013 [facility] L mg/dL 4:13 AM CDT LABORATORY ANION GAP 5.0 0.0 - 15.0 03/12/2013 [facility] mMol/L 4:13 AM CDT LABORATORY Specimen Anatomical Collection Method Collection Time Receive d Time (Source) Location / / Volume Laterality Blood specimen 03/12/2013 3:40 AM 013 3:48 (specimen) CDT AM CDT Carson Vazquez MD CHEMISTRY ORDERABLE Performing Organization Address City/State/ZIP Code Phon e Number [address] [address] [address] [address] (ABNORMAL) CBC (Hgb,Hct,WBC,RBC,Platelet) (03/12/2013 3:40 AM CDT)Only the most recent of7 resultswithin the time period is included. [facility] gist Method Time Signature WBC 9.6 4.3 - 10.8 03/12/2013 [facility] K/uL 4:05 AM CDT LABORATORY RBC 2.94 (L) 4.20 - 03/12/2013 [facility] 5.40 M/uL 4:05 AM CDT LABORATORY HEMOGLOBIN 9.3 (L) 12.0 - 03/12/2013 [facility] 16.0 gm/dL 4:05 AM CDT LABORATORY HEMATOCRIT 27.4 (L) 36.0 - 03/12/2013 [facility] 48.0 % 4:05 AM CDT LABORATORY MCV 93 80 - 100 03/12/2013 [facility] fl 4:05 AM CDT LABORATORY MCH 32 27 - 33 pg 03/12/2013 [facility] 4:05 AM CDT LABORATORY MCHC 34 33 - 36 03/12/2013 [facility] gm/dL 4:05 AM CDT LABORATORY RDW 12.7 11.5 - 03/12/2013 [facility] 14.5 % 4:05 AM CDT LABORATORY PLATELET COUNT 346 150 - 400 03/12/2013 [facility] K/uL 4:05 AM CDT LABORATORY MPV 9.9 6.5 - 12.0 03/12/2013 [facility] 4:05 AM CDT LABORATORY Specimen Anatomical Collection Method Collection Time Receive d Time (Source) Location / / Volume Laterality Blood specimen 03/12/2013 3:40 AM 013 3:48 (specimen) CDT AM CDT Carson Vazquez MD HEMATOLOGY ORDERABLE Performing Organization Address City/State/ZIP Code Phon e Number [facility] [address] [place] [address] LABORATORY [facility] [address] [place], [place] [address] (ABNORMAL) CBC / Diff (03/09/2013 5:43 AM CDT) [facility] gist Method Time Signature WBC 8.4 4.3 - 10.8 03/09/2013 [facility] K/uL 6:13 AM CDT LABORATORY RBC 3.04 (L) 4.20 - 03/09/2013 [facility] 5.40 M/uL 6:13 AM CDT LABORATORY HEMOGLOBIN 9.4 (L) 12.0 - 03/09/2013 [facility] 16.0 gm/dL 6:13 AM CDT LABORATORY HEMATOCRIT 29.2 (L) 36.0 - 03/09/2013 [facility] 48.0 % 6:13 AM CDT LABORATORY MCV 96 80 - 100 03/09/2013 [facility] fl 6:13 AM CDT LABORATORY MCH 31 27 - 33 pg 03/09/2013 [facility] 6:13 AM CDT LABORATORY MCHC 32 (L) 33 - 36 03/09/2013 [facility] gm/dL 6:13 AM CDT LABORATORY RDW 12.6 11.5 - 03/09/2013 [facility] 14.5 % 6:13 AM CDT LABORATORY PLATELET COUNT 235 150 - 400 03/09/2013 [facility] K/uL 6:13 AM CDT LABORATORY MPV 9.9 6.5 - 12.0 03/09/2013 [facility] 6:13 AM CDT LABORATORY PMN % 79.3 (H) 40.0 - 03/09/2013 [facility] 77.0 % 6:13 AM CDT LABORATORY LYMPH % 10.7 (L) 24.0 - 03/09/2013 [facility] 44.0 % 6:13 AM CDT LABORATORY MONO % 8.0 (H) 3.0 - 6.0 03/09/2013 [facility] % 6:13 AM CDT LABORATORY EOS % 1.8 0.0 - 3.0 03/09/2013 [facility] % 6:13 AM CDT LABORATORY BASO % 0.2 0.0 - 1.0 03/09/2013 [facility] % 6:13 AM CDT LABORATORY PMN ABSOLUTE 6.62 1.80 - 03/09/2013 [facility] 7.80 K/uL 6:13 AM CDT LABORATORY LYMPH ABSOLUTE 0.89 (L) 1.00 - 03/09/2013 [facility] 4.00 K/uL 6:13 AM CDT LABORATORY MONO ABSOLUTE 0.67 0.00 - 03/09/2013 [facility] 1.00 K/uL 6:13 AM CDT LABORATORY EOS ABSOLUTE 0.15 0.00 - 03/09/2013 [facility] 0.45 K/uL 6:13 AM CDT LABORATORY BASO ABSOLUTE 0.02 0.00 - 03/09/2013 [facility] 0.20 K/ul 6:13 AM CDT LABORATORY Specimen Anatomical Collection Method Collection Time Receive d Time (Source) Location / / Volume Laterality Blood specimen 03/09/2013 5:43 AM 013 5:43 (specimen) CDT AM CDT Carson Vazquez MD HEMATOLOGY ORDERABLE Performing Organization Address City/State/ZIP Code Phon e Number [facility] [address] [place] [address] LABORATORY [facility] [address] [place], [place] [address] (ABNORMAL) Creatine Kinase (CK Total) (03/09/2013 5:43 AM CDT)Only the most recent of4 resultswithin the time period is included. P athologist Signature CK TOTAL 474 (H) 15 - 170 03/09/2013 [facility] IU/L 6:18 AM CDT LABORATORY Specimen Anatomical Collection Method Collection Time Receive d Time (Source) Location / / Volume Laterality Blood specimen 03/09/2013 5:43 AM 013 5:43 (specimen) CDT AM CDT Carson Vaqzuez MD CHEMISTRY ORDERABLE Performing Organization Address City/[facility]/ZIP Code Phon e Number [facility] [address] [place] [address] LABORATORY [facility] [address] [place], [place] [address] Triglycerides, Serum (03/09/2013 5:43 AM CDT)Only the most recent of5 results within the time period is included. Patholo gist Method Time Signature TRIGLYCERIDES 95 <150 mg/dL 03/09/2013 [facility] PROFILE 6:18 AM CDT LABORATORY Specimen Anatomical Collection Method Collection Time Receive d Time (Source) Location / / Volume Laterality Blood specimen 03/09/2013 5:43 AM 013 5:43 (specimen) CDT AM CDT Carson Vazquez MD CHEMISTRY ORDERABLE Performing Organization Address City/[facility]/ZIP Code Phon e Number [facility] [address] [place] [address] LABORATORY [facility] [address] [place], [place] [address] Procalcitonin (03/08/2013 2:00 PM CDT) P athologist Signature Procalcitonin <0.10 ng/ml 03/08/2013 [facility] 3:26 PM CDT LABORATORY Specimen Anatomical Collection Method Collection Time Receive d Time (Source) Location / / Volume Laterality Blood specimen 03/08/2013 2:00 PM 013 2:13 (specimen) CDT PM CDT Narrative [facility] LABORATORY - 03/08/2013 3 :26 PM CDT PROCALCITONIN REFERENCE RANGE <0.1 ng/mL: ?Bacterial infection very unlikely, ?antibiotics strongly discouraged. ? 0.1-0.25 ng/mL: ??Bacterial infection un likely, ?antibiotics discouraged. ? 0.25-0.5 ng/mL: ??Local bacterial infect ion likely, antibiotics ?recommended. There is a low risk of p rogression to ?severe systemic infection (severe sep sis/septic shock). ? 0.5-2.0 ng/mL: ?? Bacterial infection is very likely and ?antibiotics are strongly recommended. Systemic infection is ?possible. There is a moderate risk fo r progression to ?severe systemic infection or sepsis. Repeat testing in ?6-24 hrs should be considered to eval uate further for sepsis. >2 ng/mL: ?? Systemic infection is likel y. There is a high risk ?for progression to severe systemic in fection or sepsis. ? >10 ng/mL: ??Level almost exclusive due to severe bacterial ?sepsis. High likelihood of severe sep sis or septic shock. ? Miles Kevin MD CHEMISTRY ORDERABLE Performing Organization Address City/State/ZIP Code Phon e Number [facility] [address] [address] LABORATORY [facility] [address] [address] XR FEMUR PORT RT (03/08/2013 11:42 AM CDT)Only the most recent of2 resultswithin the time period is included. Anatomical Region Laterality Modality Extremity Computed Radiography Specimen (Source) Anatomical Collection Method Collection Time Re ceived Time Location / / Volume Laterality 03/08/2013 11:50 AM CDT Impressions 03/08/2013 11:51 AM CDT IMPRESSION: No fracture of the shaft of the right fe mur. Narrative 03/08/2013 11:51 AM CDT EXAM: X-ray Femur 03/08/2013. COMPARISON: 03/04/2013. CLINICAL DATA: Leg trauma. VIEWS: Frontal and lateral views of the shaft of the right femur were obtained. FINDINGS: No fracture of the shaft of the femur is identified. ?? No right knee joint effusion. Procedure Note Lorri Porter MD - 03/08/2013Forma tting of this note might be different from the original. EXAM: X-ray Femur 03/08/2013. COMPARISON: 03/04/2013. CLINICAL DATA: Leg trauma. VIEWS: Frontal and lateral views of the shaft of the right femur were obtained. FINDINGS: No fracture of the shaft of the femur is identified. No right knee joint effusion. IMPRESSION: No fracture of the shaft of the right fe mur. Miles Kevin MD XRAY ORDERABLE (ABNORMAL) Sputum Culture (03/08/2013 10:38 AM CDT)Only the most recent of2 resultswithin the time period is included. [facility] Method Time Signature Sputum Heavy growth of 03/11/2013 [place] Culture Enterobacter 8:42 AM T [facility] cloacae (A) LABORATORY Sputum Heavy growth of 03/11/2013 [place] Culture Serratia 8:42 AM T [facility] marcescens (A) LABORATORY Gram Stain Many Gram 03/11/2013 [facility] Result Negative Bacilli 8:42 AM [facility] LABORATORY Gram Stain Many PMN's / LPF 03/11/2013 [facility] Result 8:42 AM T [facility] LABORATORY Gram Stain <10 Epithelial 03/11/2013 [facility] Result cells / LPF 8:42 AM CDT [facility] LABORATORY Specimen Anatomical Location Collection Method Collection Time Received Time (Source) / Laterality / Volume Sputum specimen SPECIMEN FROM 03/08/2013 10:38 013 (specimen) ENDOTRACHEAL TUBE / AM CDT 11:37 AM CDT Unknown Organism Antibiotic Method Susceptibility Enterobacter cloacae Ampicillin >16.00: Res istant Enterobacter cloacae Ciprofloxacin <=0.50: Sen sitive Enterobacter cloacae Gentamicin <=2.00: Sen sitive Enterobacter cloacae Meropenem <=1.00: Sen sitive Enterobacter cloacae Piperacillin/Tazobactam <=2 /4: Sensitive Enterobacter cloacae Trimethoprim/Sulfamethoxazole <=0.5/9.5: Sensitive Serratia marcescens Ampicillin >16.00: Resi stant Serratia marcescens Ampicillin/Sulbactam >16/8: Resistant Serratia marcescens Cefazolin >16.00: Resi stant Serratia marcescens Ceftriaxone <=2.00: Sens itive Serratia marcescens Ciprofloxacin <=0.50: Sens itive Serratia marcescens Gentamicin <=2.00: Sens itive Serratia marcescens Meropenem <=1.00: Sens itive Serratia marcescens Piperacillin/Tazobactam <=4/ 4: Sensitive Miles Kevin MD MICROBIOLOGY ORDERABLE Performing Organization Address City/State/ZIP Code Phon e Number [address] [place] [address] [place] [address] CULT-BLOOD (03/08/2013 10:38 AM CDT)Only the most recent of2 resultswithin the time period is included. [facility] Method Time Signature Blood Culture No growth 5 [facility] 4:11 PM CDT LABORATORY Specimen Anatomical Collection Method Collection Time Receive d Time (Source) Location / / Volume Laterality Blood specimen BLOOD SPECIMEN / 03/08/2013 10:38 03/08 (specimen) Unknown AM CDT 11:14 AM CDT Miles Kevin MD MICROBIOLOGY ORDERABLE Performing Organization Address City/[facility]/ZIP [facility] Phon e Number [facility] [address] [address] LABORATORY [facility] [address] [place], [place] [address] (ABNORMAL) Urine Culture (03/08/2013 10:38 AM CDT) [facility] gist Method Time Signature Urine Culture 40,000 03/09/2013 [facility] cfu/ml of 3:41 PM CDT LABORATORY Yeast. (A) Specimen Anatomical Collection Method Collection Time Receive d Time (Source) Location / / Volume Laterality Urine specimen 03/08/2013 10:38 3 2:13 (specimen) AM CDT PM CDT Miles Kevin MD MICROBIOLOGY ORDERABLE Performing Organization Address [facility] Phon e Number [place] [phone] [place] [address] [phone] LABORATORY [place] [address] [facility] [place], [place] [address] CT HEAD W/O IV CONTRAST (03/08/2013 5:05 AM CDT)Only the most recent of4 results within the time period is included. Anatomical Region Laterality Modality Head Computed Tomography Specimen (Source) Anatomical Collection Method Collection Time Re ceived Time Location / / Volume Laterality 03/08/2013 5:31 AM CDT Impressions 03/08/2013 5:37 AM CDT IMPRESSION: 1. ??Overall, findings are similar to e comparison exam. 2. ??Numerous acute hemorrhagic and nonh emorrhagic intraparenchymal contusions are similar in size and morphology to the comparison exam. 3. ??Persistent acute subarachnoid hemor rhage. ?? Narrative 03/08/2013 5:37 AM CDT EXAM: CT HEAD WITHOUT CONTRAST, 08 March 2013 CLINICAL DATA: Trauma COMPARISON: 07 March 2013 TECHNIQUE: Noncontrast. FINDINGS: Bilateral acute intraparenchym al contusions are similar in size to the comparison examination. ??Diffuse acute subarachnoid hemorrhage persists. ??Trace intraventricular hemorrhage in the righ t lateral ventricle. ??Evolving hypodens ity in the right temporal lobe. Ventricular configuration is stable. ??T he basilar cisterns are patent. ??No clearly acute cortical findings. The paranasal sinuses are largely opacif ied. ??No mastoid or middle ear fluid. ??Extensive soft tissue thickening. ?? Procedure Note Jonh Martin MD - 03/08/2013Forma tting of this note might be different from the original. EXAM: CT HEAD WITHOUT CONTRAST, 08 March 2013 CLINICAL DATA: Trauma COMPARISON: 07 March 2013 TECHNIQUE: Noncontrast. FINDINGS: Bilateral acute intraparenchym al contusions are similar in size to the comparison examination. Diffuse acute subarachnoid hemorrhage persists. Trace intraventricular hemorrhage in the right lateral ventricle. Evolving hypodensity in the r ight temporal lobe. Ventricular configuration is stable. The basilar cisterns are patent. No clearly acute cortical findings. The paranasal sinuses are largely opacif ied. No mastoid or middle ear fluid. Extensive soft tissue thickening. IMPRESSION: 1. Overall, findings are similar to the comparison exam. 2. Numerous acute hemorrhagic and nonhem orrhagic intraparenchymal contusions are similar in size and morphology to the comparison exam. 3. Persistent acute subarachnoid hemorrh age. Sonia Ashford PA-C CT ORDERABLE US VENOUS EXTREM LOW BILAT (03/07/2013 11:16 PM CDT) Anatomical Region Laterality Modality Extremity Ultrasound Specimen (Source) Anatomical Collection Method Collection Time Re ceived Time Location / / Volume Laterality 03/07/2013 11:19 PM CDT Impressions 03/07/2013 11:19 PM CDT IMPRESSION: No deep venous thrombosis. Narrative 03/07/2013 11:19 PM CDT EXAM: BILATERAL LOWER EXTREMITY VENOUS ULTRASOUND, 07 March 2013 CLINICAL DATA: Bed rest. ??Discomfort. COMPARISON: None available TECHNIQUE: High frequency linear transdu cer with [...] calves. Procedure Note Jonh Martin MD - 03/07/2013Forma tting of this note might be different from the original. EXAM: BILATERAL LOWER EXTREMITY VENOUS U LTRASOUND, 07 March 2013 CLINICAL DATA: Bed rest. Discomfort. COMPARISON: None available TECHNIQUE: High frequency linear transdu cer with [...] posterior tibial veins in the upper calves. IMPRESSION: No deep venous thrombosis. Gosia Price APRN, CNP ULTRASOUND ORDERABLE Extra Tube-Urine (Lab Use Only) (03/07/2013 5:35 AM CDT) Specimen Anatomical Collection Method Collection Time Receive d Time (Source) Location / / Volume Laterality Urine specimen 03/07/2013 5:35 AM 013 5:45 (specimen) CDT AM CDT Mushtaq Cleary MD URINE ORDERABLE Performing Organization Address City/[facility] Phon e Number [address] [place] [address] LABORATORY Extra Tube-SST (Lab Use Only) (03/07/2013 5:10 AM CDT) Specimen Anatomical Collection Method Collection Time Receive d Time (Source) Location / / Volume Laterality Blood specimen 03/07/2013 5:10 AM 013 5:39 (specimen) CDT AM CDT Mushtaq Cleary MD CHEMISTRY ORDERABLE Performing Organization Address City/[facility] Phon e Number [address] [place] [address] LABORATORY Extra Tube PST (Lab Use Only) (03/07/2013 5:10 AM CDT) Specimen Anatomical Collection Method Collection Time Receive d Time (Source) Location / / Volume Laterality Blood specimen 03/07/2013 5:10 AM 013 5:39 (specimen) CDT AM CDT Mushtaq Cleary MD CHEMISTRY ORDERABLE Performing Organization Address City/[facility] Phon e Number [address] [facility] [place] [address] LABORATORY (ABNORMAL) POCT Gases Arterial (03/06/2013 4:20 AM CDT) [facility] gist Method Time Signature POCT PH-ART 7.39 7.35 - 03/09/2013 [facility] 7.45 3:15 PM CDT LABORATORY POCT PCO2-ART 45 33 - 45 mm 03/09/2013 [facility] Hg 3:15 PM CDT LABORATORY POCT PO2-ART 111.7 (H) 75 - 100 03/09/2013 [facility] mm Hg 3:15 PM CDT LABORATORY POCT HCO3-ART 27 22 - 29 03/09/2013 [facility] mMol/L 3:15 PM CDT LABORATORY POCT BASE 1.9 -3.0 - 2.0 03/09/2013 [facility] EXCESS mMol/L 3:15 PM CDT LABORATORY POCT CSO2 98.3 (H) 92.0 - 03/09/2013 [facility] 98.0 % Sat 3:15 PM CDT LABORATORY POCT cTCO2 28.6 mMol/L 03/09/2013 [facility] 3:15 PM CDT LABORATORY Specimen Anatomical Collection Method Collection Time Receive d Time (Source) Location / / Volume Laterality Arterial blood 03/06/2013 4:20 AM 013 3:15 specimen CDT PM CDT (specimen) Mushtaq Cleary MD LAB POINT OF CARE TEST RESUL TS Performing Organization Address City/State/ZIP Code Phon e Number [address] [address] LABORATORY [facility] LABORATORY [address] [place] [address] [place] [address] (ABNORMAL) Electrolytes (03/05/2013 11:11 AM CDT)Only the most recent of3 resultswithin the time period is included. athologist Signature SODIUM 144 133 - 144 03/05/2013 [facility] mMol/L 11:35 AM CDT LABORATORY POTASSIUM 3.8 3.5 - 5.0 03/05/2013 [facility] mMol/L 11:35 AM CDT LABORATORY CHLORIDE 113 (H) 99 - 111 03/05/2013 [facility] mMol/L 11:35 AM CDT LABORATORY CARBON DIOXIDE 26.0 21.0 - 03/05/2013 [facility] 30.0 11:35 AM CDT LABORATORY mMol/L ANION GAP 5.0 0.0 - 15.0 03/05/2013 [facility] mMol/L 11:35 AM CDT LABORATORY Specimen Anatomical Collection Method Collection Time Receive d Time (Source) Location / / Volume Laterality Blood specimen 03/05/2013 11:11 3 (specimen) AM CDT 11:15 AM CDT Mushtaq Cleary MD CHEMISTRY ORDERABLE Performing Organization Address City/[facility]/ZIP Code Phon e Number [place] [phone] [place] [address] [facility] [address] [address] [place] [place] [address] (ABNORMAL) Protime & INR (03/05/2013 4:39 AM CDT)Only the most recent of2 resultswithin the time period is included. P athologist Signature PROTIME 9.9 (L) 10.0 - 13.0 03/05/2013 [facility] sec. 5:02 AM CDT LABORATORY INR 1.0 1.0 - 1.2 03/05/2013 [facility] 5:02 AM CDT LABORATORY Specimen Anatomical Collection Method Collection Time Receive d Time (Source) Location / / Volume Laterality Blood specimen 03/05/2013 4:39 AM 013 4:44 (specimen) CDT AM CDT Mushtaq Cleary MD COAGULATION ORDERABLE Performing Organization Address City/State/ZIP Code Phon e Number [facility] [address] [place] [address] LABORATORY [facility] [address] [place] [address] ADMIT (MRSA) Nasal Culture (03/04/2013 10:25 PM CDT) [facility] Method Time Signature Admit MRSA No Methicillin 03/06/2013 [facility] Culture resistant 10:17 AM [facility] Staph. aureus CDT LABORATORY (MRSA) isolated. Specimen Anatomical Collection Method Collection Time Receive d Time (Source) Location / / Volume Laterality Specimen from 03/04/2013 10:25 03/04/2013 internal nose PM CDT 10:33 PM CDT (specimen) Izabela Pierson RN MICROBIOLOGY ORDERABLE Performing Organization Address City/State/ZIP Code Phon e Number [facility] [address] [address] LABORATORY [facility] [address] [address] XR HAND PORT RT (03/04/2013 8:47 PM CDT) Anatomical Region Laterality Modality Extremity Computed Radiography Specimen (Source) Anatomical Collection Method Collection Time Re ceived Time Location / / Volume Laterality 03/04/2013 8:55 PM CDT Impressions 03/04/2013 8:56 PM CDT IMPRESSION: No fracture seen, as described above. Narrative 03/04/2013 8:56 PM CDT EXAM: X-RAY HAND DATE: 03/04/2013 8:47 PM COMPARISON: None CLINICAL DATA: Trauma. Wrist pain. TECHNIQUE: Frontal, oblique, and lateral views of the right hand were obtained. FINDINGS: No fracture or dislocation is identified . Portions of the distal ulna are obscured by a metallic bracelet. Procedure Note Wolfgang Monroe MD - 03/04/2013Form atting of this note might be different from the original. EXAM: X-RAY HAND DATE: 03/04/2013 8:47 PM COMPARISON: None CLINICAL DATA: Trauma. Wrist pain. TECHNIQUE: Frontal, oblique, and lateral views of the right hand were obtained. FINDINGS: No fracture or dislocation is identified . Portions of the distal ulna are obscured by a metallic bracelet. IMPRESSION: No fracture seen, as described above. Faizan Fishman MD XRAY ORDERABLE CT Recon L/S Spine (03/04/2013 8:31 PM CDT) Anatomical Region Laterality Modality Computed Tomography Specimen (Source) Anatomical Collection Method Collection Time Re ceived Time Location / / Volume Laterality 03/04/2013 8:33 PM CDT Impressions 03/04/2013 8:33 PM CDT IMPRESSION: No lumbar spine fracture seen. Narrative 03/04/2013 8:33 PM CDT EXAM: CT SPINE LUMBAR TRAUMA DATE: 03/04/2013 7:49 PM COMPARISON: None CLINICAL DATA: Trauma. Back pain. ? TECHNIQUE: Thin-section contiguous trans axial images were obtained through the lumbosacral spine. ??Sagittal and coronal reformatted images through the lumbosacral spine were also obtained. ??In additio n, three-dimensional (3D) reformations t hrough the lumbosacral spine were generated by the radiologist on an independent workstation and reviewed. FINDINGS: No lumbar spine fracture is identified. Lumbar vertebral body height is within n ormal limits. Procedure Note Wolfgang Monroe MD - 03/04/2013Form atting of this note might be different from the original. EXAM: CT SPINE LUMBAR TRAUMA DATE: 03/04/2013 7:49 PM COMPARISON: None CLINICAL DATA: Trauma. Back pain. TECHNIQUE: Thin-section contiguous trans axial images were obtained through the lumbosacral spine. Sagittal and coronal reformatted images through the lumbosacral spine were also obtained. In addition, three-dimensional (3D) reformations through the lumbosacra l spine were generated by the radiologist on an independent workstation and reviewed. FINDINGS: No lumbar spine fracture is identified. Lumbar vertebral body height is within n ormal limits. IMPRESSION: No lumbar spine fracture seen. Faizan Fishman MD CT ORDERABLE CT Recon T-Spine (03/04/2013 8:30 PM CDT) Anatomical Region Laterality Modality Computed Tomography Specimen (Source) Anatomical Collection Method Collection Time Re ceived Time Location / / Volume Laterality 03/04/2013 8:40 PM CDT Impressions 03/04/2013 8:41 PM CDT IMPRESSION: Fracture of the T4 vertebral body as det apurva above. Narrative 03/04/2013 8:41 PM CDT EXAM: CT SPINE THORACIC TRAUMA DATE: 03/04/2013 7:48 PM COMPARISON: None CLINICAL DATA: Trauma. Back pain. ? TECHNIQUE: Thin-section contiguous trans axial images were obtained through the thoracic spine. ??Sagittal and coronal reformatted images through the thoracic spine were also obtained. ??In addition, thr ee-dimensional (3D) reformations through the thoracic spine were generated by the radiologist on an independent workstation and reviewed. FINDINGS: Curvature of the thoracic spine convex t o the right. ??Vertically-oriented fracture through the right side of the body of T4 extending from the anterior margin to the posterior margin. ??No significant loss of vertebral body height. ??No larg e bony fragments in the spinal canal. ??No other thoracic spine fracture seen. Procedure Note Wolfgang Monroe MD - 03/04/2013Form atting of this note might be different from the original. EXAM: CT SPINE THORACIC TRAUMA DATE: 03/04/2013 7:48 PM COMPARISON: None CLINICAL DATA: Trauma. Back pain. TECHNIQUE: Thin-section contiguous trans axial images were obtained through the thoracic spine. Sagittal and coronal reformatted images through the thoracic spine were also obtained. In addition, three-dimensional (3D) reformations through the thoracic spine were generated by the radiologist on an independent workstation and reviewed. FINDINGS: Curvature of the thoracic spine convex t o the right. Vertically-oriented fracture through the right side of the body of T4 extending from the anterior margin to the posterior margin. No significant loss of vertebral body height. No large bony fragments in the spinal canal. No other thoracic spine fracture seen. IMPRESSION: Fracture of the T4 vertebral body as det apurva above. Faizan Fishman MD CT ORDERABLE CT TRAUMA CHEST/ABD/PEL WITH CONTRAST (03/04/2013 8:27 PM CDT) Anatomical Region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 modification) on Tue03/06/13 at 0915, Until Discontinued Given 03/13/2013 7:48 AM CDT 17 g Given 03/12/2013 9:16 AM CDT 17 g potassium chloride (KLOR-CON) packet 20 mEq Given 03/06/2013 8:34 PM CDT 20 mEq 20 mEq, oral, ONCE, 1 dose, On Tue03/06/13 at 2000 potassium chloride (KLOR-CON) packet 20 mEq Given 03/07/2013 12:33 PM CDT 20 mEq 20 mEq, oral, ONCE, 1 dose, On Tue03/07/13 at 1130 potassium chloride (KLOR-CON) packet 20 mEq Given 03/07/2013 4:41 PM CDT 20 mEq 20 mEq, Feeding Tube, ONCE, 1 dose, On Tue03/07/13 at 1645 potassium chloride (KLOR-CON) packet 20 mEq Given 03/08/2013 12:25 AM CDT 20 mEq 20 mEq, oral, ONCE, 1 dose, On Tue03/08/13 at 0015 potassium chloride (KLOR-CON) packet 20 mEq Given 03/08/2013 7:56 PM CDT 20 mEq 20 mEq, oral, ONCE, 1 dose, On Tue03/08/13 at 2000 potassium chloride (KLOR-CON) packet 20 mEq Given 03/09/2013 6:39 AM CDT 20 mEq 20 mEq, oral, ONCE, 1 dose, On Tue03/09/13 at 0630 potassium chloride (KLOR-CON) packet 20 mEq Given 03/12/2013 1:33 PM CDT 20 mEq 20 mEq, oral, ONCE, 1 dose, On Tue03/12/13 at 1200 potassium chloride (KLOR-CON) packet 20 mEq Given 03/13/2013 12:12 AM CDT 20 mEq 20 mEq, oral, ONCE, 1 dose, On Tue03/12/13 at 2330 potassium chloride (KLOR-CON) packet 40 mEq Given 03/07/2013 6:33 AM CDT 40 mEq 40 mEq, oral, ONCE, 1 dose, On Tue03/07/13 at 0630 potassium chloride (KLOR-CON) packet 40 mEq Given 03/08/2013 5:33 AM CDT 40 mEq 40 mEq, oral, ONCE, 1 dose, On Tue03/08/13 at 0530 potassium chloride (KLOR-CON) packet 40 mEq Given 03/08/2013 2:25 PM CDT 40 mEq 40 mEq, oral, ONCE, 1 dose, On Tue03/08/13 at 1400 potassium chloride (KLOR-CON) packet 40 mEq Given 03/09/2013 2:39 AM CDT 40 mEq 40 mEq, oral, ONCE, 1 dose, On Tue03/09/13 at 0230 potassium chloride (KLOR-CON) packet 40 mEq Given 03/12/2013 4:53 AM CDT 40 mEq 40 mEq, oral, ONCE, 1 dose, On Tue03/12/13 at 0430 potassium chloride (KLOR-CON) packet 40 mEq Given 03/14/2013 9:07 AM CDT 40 mEq 40 mEq, oral, ONCE, 1 dose, On Tue03/14/13 at 0800 potassium chloride (KLOR-CON) packet 40 mEq Given 03/14/2013 3:51 PM CDT 40 mEq 40 mEq, oral, ONCE, 1 dose, On 03/14/13 at 1545 potassium chloride (KLOR-CON) packet 40 mEq Given 03/15/2013 5:58 AM CDT 40 mEq 40 mEq, oral, ONCE, 1 dose, On Sole 03/15/13 at 0600 potassium chloride 10 mEq IV piggyback in 100 Given 2:00 PM CDT 10 mEq mL 10 mEq, Intravenous, EVERY 1 HOUR, 6 doses, First dose on Tue03/06/13 at 0730, Last dose on Tue03/06/13 at 1230, Administer over 60 Minutes Given 03/06/2013 11:30 AM CDT 10 mEq Given 03/06/2013 10:30 AM CDT 10 mEq potassium chloride 20 mEq IV piggyback in 50 Given 10/2012 8:04 PM CDT 20 mEq mL 20 mEq, Intravenous, EVERY 2 HOURS (NS), 2 doses, First dose on 03/10/13 at 1730, Last dose on 03/10/13 at 1930, Administer over 120 Minutes Given 03/10/2013 5:28 PM CDT 20 mEq propofol ( DIPRIVAN ) IV infusion Rate Change 03/04/2013 10:15 PM 30 mcg/kg/min (conc: 10 mg/mL) CDT 5-80 mcg/kg/min, Intravenous, TITRATE, Starting on 03/04/13 at 2215, Until Tue03/04/13 at 2219, Must have a dedicated central port or peripheral IV for the administration of propofol infusion. Peripheral IV administration is for emergent use for up to 24 hours. Use strict aseptic technique when handling propofol. Review Guidelines for Use of Propofol Sedation, Critical Care for detailed handling instructions. See Sedation Weaning Criteria for sedation reduction guidelines. Propofol should be administered with an infusion of one of the following carrier solutions to run at 20 ml/hour via the dedicated central port or peripheral IV. Sedation can be increased or decreased by titrating the infusion rate as ordered. Physician will be notified if drip requirements reach 80 micrograms/kg/minute. (Most patients will be maintained at 10 - 50 micrograms/kg/minute). Avoid abrupt discontinuation of propofol infusion, which may cause rapid awakening and agitation. Titrate to keep patient sedated at a RASS Scale score of -2 (suggested level 0 to -2). Start at 10 mcg/kg/min and titrate by 5-10 mcg/kg/min every 5 to 10 minutes until ordered level of sedation achieved. Decrease by 10 mcg/kg/min every 10 to 15 minutes if mild hypotension develops during titration of sedation. Decrease infusion until resolved. Decrease by 5-10 mcg/kg/min every 10 to 15 minutes until a RASS score of 0 is achieved for evaluations of neurologic functioning. (This level should allow an appropriate examination of responsiveness and neurologic functioning without causing agitation). Titrate by 5-10 mcg/kg/min every 5 to 10 minutes after neurologic evaluation until ordered level of sedation achieved. Decrease by 5-10 mcg/kg/min every 10 to 15 minutes to maintain a light level of sedation to wean patient from mechanical ventilator (i.e., patient is awake, comfortable and able to follow commands with no evidence of hypoventilation). Discontinue infusion when all extubation criteria have been met, at least 15 minutes prior to extubation. Discontinue infusion and administer IV fluids or vasopressor therapy if clinically significant hypotension or cardiovascular depression occurs. propofol ( DIPRIVAN ) IV New Bag 03/09/2013 8:49 AM 10 mcg/kg/min 3.72 mL/hr infusion (conc: 10 mg/mL) CDT 5-80 mcg/kg/min ? 62 kg (rounded to 1.86-29.76 mL/hr), Intravenous, TITRATE, Starting on Tue03/04/13 at 2230, Until Tue03/09/13 at 0909, Must have a dedicated central port or peripheral IV for the administration of propofol infusion. Peripheral IV administration is for emergent use for up to 24 hours. Use strict aseptic technique when handling propofol. Review Guidelines for Use of Propofol Sedation, Critical Care for detailed handling instructions. See Sedation Weaning Criteria for sedation reduction guidelines. Propofol should be administered with an infusion of one of the following carrier solutions to run at 20 ml/hour via the dedicated central port or peripheral IV. Sedation can be increased or decreased by titrating the infusion rate as ordered. Physician will be notified if drip requirements reach 80 micrograms/kg/minute. (Most patients will be maintained at 10 - 50 micrograms/kg/minute). Avoid abrupt discontinuation of propofol infusion, which may cause rapid awakening and agitation. Titrate to keep patient sedated at a RASS Scale score of -2 (suggested level 0 to -2). Start at 10 mcg/kg/min and titrate by 5-10 mcg/kg/min every 5 to 10 minutes until ordered level of sedation achieved. Decrease by 10 mcg/kg/min every 10 to 15 minutes if mild hypotension develops during titration of sedation. Decrease infusion until resolved. Decrease by 5-10 mcg/kg/min every 10 to 15 minutes until a RASS score of 0 is achieved for evaluations of neurologic functioning. (This level should allow an appropriate examination of responsiveness and neurologic functioning without causing agitation). Titrate by 5-10 mcg/kg/min every 5 to 10 minutes after neurologic evaluation until ordered level of sedation achieved. Decrease by 5-10 mcg/kg/min every 10 to 15 minutes to maintain a light level of sedation to wean patient from mechanical ventilator (i.e., patient is awake, comfortable and able to follow commands with no evidence of hypoventilation). Discontinue infusion when all extubation criteria have been met, at least 15 minutes prior to extubation. Discontinue infusion and administer IV fluids or vasopressor therapy if clinically significant hypotension or cardiovascular depression occurs. Rate Change 03/09/2013 2:42 AM CDT 10 mcg/kg/min 3.72 mL/hr Rate Change 03/09/2013 2:23 AM CDT 20 mcg/kg/min 7.44 mL/hr propofol ( DIPRIVAN ) IV New Bag 03/13/2013 8:50 AM CDT 50 mcg /kg/min 18.6 mL/hr infusion (conc: 10 mg/mL) 50-100 mcg/kg/min ? 62 kg Dosing weight (rounded to 18.6-37.2 mL/hr), Intravenous, INTRA-PROCEDURE NEEDED, Starting on Tue03/13/13 at 1202, Until Tue03/13/13 at 1601 Rate Change 03/13/2013 8:40 AM CDT 30 mcg/kg/min 11.16 mL/hr New Bag 03/13/2013 7:30 AM CDT 10 mcg/kg/min 3.72 mL/hr PROPOFOL 10 MG/ML IV New Bag 03/04/2013 7:45 PM CDT 12.6 mL/hr 1 dose, Starting on Tue03/04/13 at 1932, Until Tue03/04/13 at 1945, FREIDA BUNDY: cabinet override PROPOFOL 10 MG/ML IV New Bag 03/13/2013 7:30 AM CDT 10 mcg 1 dose, Starting on Tue03/13/13 at 0740, Until Tue03/13/13 at 0730, ZULEMA APARICIO: cabinet override QUEtiapine (SEROQUEL) tablet 50 mg Given 03/15/2013 7:36 AM CDT 50 mg 50 mg, oral, THREE TIMES A DAY, First dose on Tue03/09/13 at 0915, Until Discontinued Given 03/14/2013 10:19 PM CDT 50 mg Given 03/14/2013 1:51 PM CDT 50 mg senna-docusate (SENNA- S) tablet 2 Tab Given 03/08/2013 7:56 PM CDT 2 tablets 2 tablet, oral, TWICE A DAY NEEDED, Starting on Tue03/06/13 at 0851, Until Tue03/15/13 at 1945, constipation Given 03/08/2013 8:40 AM CDT 2 tablets Given 03/06/2013 8:34 PM CDT 2 tablets sodium chloride 0.9 % IV for Radiology Given 03/04/2013 8:28 PM CDT 40 mL Intravenous, ONCE NEEDED, 1 dose, Starting on Tue03/04/13 at 2028, Until Tue03/04/13 at 2028 sodium chloride 0.9 % IV soln New Bag 03/05/2013 6:47 AM CDT 1,000 mL 125 mL/hr 1,000 mL at 125 mL/hr, Intravenous, CONTINUOUS, Starting on Tue03/04/13 at 2215, Until Tue03/05/13 at 0942 New Bag 03/04/2013 10:40 PM CDT 1,000 mL 125 mL/hr SODIUM CHLORIDE 0.9 % IV New Bag 03/10/2013 5:45 PM CDT 1 dose, Starting on Tue03/10/13 at 1736, Until Tue03/10/13 at 1745 SODIUM CHLORIDE 0.9 % IV New Bag 03/13/2013 3:53 AM CDT 500 mL 1 dose, Starting on Tue03/13/13 at 0307, Until Tue03/13/13 at 0353 SODIUM CHLORIDE 0.9 % IV New Bag 03/15/2013 1:43 AM CDT 500 mL 20 mL/hr 1 dose, Starting on Tue03/15/13 at 0143, Until Tue03/15/13 at 0143 SODIUM CHLORIDE 0.9 % IV New Bag 03/15/2013 5:09 AM CDT 500 mL 1 dose, Starting on Tue03/15/13 at 0404, Until Tue03/15/13 at 0509 sodium chloride 3% IV infusion Given 03/04/2013 7:44 PM CDT 25 mL/hr 25 mL/hr 25 mL/hr, Intravenous, ONCE, 1 dose, On Tue03/04/13 at 1945 sodium chloride 3% IV infusion New Bag 03/04/2013 8:49 PM CDT 30 mL/hr 30 mL/hr 30 mL/hr, Intravenous, CONTINUOUS, Starting on Tue03/04/13 at 2045, Until Tue03/04/13 at 2218 sodium chloride 3% IV Rate Change 03/04/2013 10:24 PM CDT 30 mL/hr 30 mL/hr infusion 30 mL/hr, Intravenous, CONTINUOUS, Starting on Tue03/04/13 at 2215, Until Tue03/04/13 at 2340 sodium chloride 3% IV infusion New Bag 03/06/2013 11:44 AM CDT 25 mL/hr 25 mL/hr 25 mL/hr, Intravenous, CONTINUOUS, Starting on Tue03/04/13 at 2345, Until Tue03/06/13 at 1813 New Bag 03/05/2013 4:17 PM CDT 25 mL/hr 25 mL/hr Rate Change 03/04/2013 11:45 PM CDT 25 mL/hr 25 mL/hr sodium chloride 3% IV infusion New Bag 03/13/2013 12:48 PM CDT 25 mL/hr 25 mL/hr 25 mL/hr, Intravenous, CONTINUOUS, Starting on Tue03/06/13 at 1815, Until Tue03/14/13 at 1101 New Bag 03/12/2013 2:33 PM CDT 25 mL/hr 25 mL/hr New Bag 03/11/2013 6:37 PM CDT 25 mL/hr 25 mL/hr white petrolatum-mineral oil (AKWA Given 03/15/2013 7:38 AM CDT 1 Application TEARS; LACRILUBE) 0.5% ophthalmic (EYE) ointment 1 Application Each Eye, EVERY 12 HOURS, First dose on Tue03/04/13 at 2215, Until Discontinued Given 03/14/2013 9:08 AM CDT 1 Application Given 03/13/2013 10:36 AM CDT 1 Application documented in this encounter Active and Recently Administered Medications Times are shown in CDT. Scheduled Medication Order 03/13/2013 03/14/2013 03/15/2013 saline FLUSH syringe 10 mL 0604 (Given - Provider: Lyla Craven RN)1400 (Not Given - Provider: Zulema Aparicio RN - Reason: Clinically appropriate (comment))2248 (Given - Provider: Izabela Pierson RN) 0608 (Given - Provider: Izabela Pierson RN)1351 (Given - Provider: Faizan Mixon RN)2209 (Given - Provider: Izabela Pierson RN) 0510 (Given - Provider: Devendra Ryan) 10 mL, Intracatheter, EVERY 8 HOURS, [address]ir st dose on Tue03/07/13 at 1400, Until Discontinued saline FLUSH syringe 5 mL 0730 (Not Given - Provider : Zulema Aparicio RN - Reason: Clinically appropriate (comment))1339 (Given - Provider: Zulema Aparicio RN)2120 (Given - Provider: Izabela Pierson RN) 0608 (Given - Provider: Izabela Pierson RN)1351 (Given - Provider: Faizan Mixon RN)2209 (Given - Provider: Izabela Pierson RN) 0510 (Given - Provider: Devendra Ryan) 5 mL, Intravenous, EVERY 8 HOURS, First dose on Tue03/13/13 at 0730, Until Discontinued ceFAZolin ( ANCEF ) 1 g in D5W 50 mL IV piggyback (PRE MADE) (COMPLETED) 1515 (Given - Provider: Zulema Aparicio RN) 1 g, Intravenous, ONE HOUR PRE-PROCEDURE ONE TIME DOSE, 1 dose, Starting Tue03/13/13 at 1353, Until Discontinued, for 30 Minutes chlorhexidine gluconate 0.12% (PERIDEX) solution 15 mL 0748 (Given - Provider: Zulema Aparicio RN)1951 (Given - Provider: Izabela Pierson RN) 0907 (Given - Provider: Faizan Mixon RN)1999 (Withheld - Provider: Izabela Pierson RN) 0737 (Given - Provider: Lizeth Nixon RN) 15 mL, Swab, EVERY 12 HOURS, First dose on Tue03/04/13 at 2215, Until Discontinued, Discontinue when Patient Extubated / Off Ventilator ciprofloxacin ( CIPRO ) 400 mg IV piggyback 0628 (Give n - Provider: Liza Craven RN)1514 (Given - Provider: Zulema Aparicio RN)2249 (Given - Provider: Izabela Pierson RN) 0609 (Given - Provider: Devendra Ryan)1503 (Given - Provider: Lizeth Nixon RN)2217 (Given - Provider: Izabela Pierson RN) 0605 (Given - Provider: Izabela Pierson RN) 400 mg, Intravenous, EVERY 8 HOURS (NS), 24 doses, First dose on Tue03/09/13 at 1500, Last dose on Tue03/17/13 at 0700, for 60 Minutes docusate sodium (COLACE) (conc: 50 mg/5 mL) oral solut ion 100 mg 0748 (Given - Provider: Zulema Aparicio RN)195 (Given - Provider: Izabela Pierson RN) 0907 (Given - Provider: Faizan Mixon RN)1999 (Withheld - Provider: Izabela Pierson RN - Comment: pt has loose stools) 0800 (Not Given - Provider: Lizeth ricardo RN - Reason: Clinically appropriate (comment) - Comment: diarrhea) 100 mg, Oral, TWICE DAILY, First dose on Tue03/06/13 at 2130, Until Discontinued enoxaparin (LOVENOX) injection 30 mg 0900 (Not Given - Provider: Zulema Aparicio RN - Reason: Procedure - Comment: PEG at 1400)224 (Given - Provider: Izabela Pierson RN) 0907 (Given - Provider: Faizan Mixon RN) 2215 (Given - Provider: Izabela Pierson RN) 1108 (Given - Provider: Lizeth Nixon RN) 30 mg, Subcutaneous, TWICE DAILY, First dose on Tue03/09/13 at 1200, Until Discontinued, This medication has a Blackbox Warning. Click the formulary reference link for more information. lansoprazole (PREVACID SOLUTAB) oral disintegrating tablet 3 0 mg 0908 (Given - Provider: Faizan Mixon RN) 0736 (Given - Provider: Lizeth Nixon RN) 30 mg, Feeding Tube, DAILY, First dose o n Tue03/14/13 at 0800, Until Discontinued levetiracetam (KEPPRA) 500 mg in sodium chloride 0.9 % 100 mL IV piggyback (CANCELED) 0748 (Given - Provider: Zulema Aparicio RN )1949 (Given - Provider: Izabela Pierson, RN) 0907 (Given - Provider: Faizan Mixon RN) 500 mg, Intravenous, EVERY 12 HOURS, Fir st dose on Tue03/04/13 at 2330, Until Discontinued, for 15 Minutes pantoprazole (PROTONIX) IV injection (conc 4 mg/mL) 40 mg (CANCELED) 0748 (Given - Provider: Zulema Aparicio RN) 40 mg, Intravenous, DAILY, First dose on Tue03/05/13 at 0800, Until Discontinued polyethylene glycol (MIRALAX) PACKET 17 g 0748 (Given - Provider: Zulema Aparicio RN) 0908 (Given - Provider: Faizan Mixon RN) 0800 (Not Giv en - Provider: Lizeth Nixon RN - Reason: Clinically appropriate (comment) - Comment: diarrhea) 17 g, Oral, DAILY, First dose on Tue03/06/13 at 0915, Until Disc ontinued potassium chloride (KLOR-CON) packet 20 mEq (COMPLETED ) 001 (Given - Provider: Liza Craven RN) 20 mEq, Oral, ONE TIME DOSE, 1 dose, Tue03/12/13 at 2330 potassium chloride (KLOR-CON) packet 40 mEq (COMPLETED) 09 (Given - Provider: Faizan Mixon RN) 40 mEq, oral, ONCE, 1 dose, On Tue03/14/13 at 0800 potassium chloride (KLOR-CON) packet 40 mEq (COMPLETED) 1551 (Given - Provider: Lizeth Nixon RN) 40 mEq, oral, ONCE, 1 dose, On Tue03/14/13 at 1545 potassium chloride (KLOR-CON) packet 40 mEq (COMPLETED) 0558 (Given - Provider: Izabela Pierson, LIZZ) 40 mEq, oral, ONCE, 1 dose, On Sole 03/15/13 at 0600 QUEtiapine (SEROQUEL) tablet 50 mg 0748 (Given - Provi adolph: Zulema Aparicio RN)1327 (Given - Provider: Zulema Aparicio RN)2255 (Given - Provider: Izabela Pierson, LIZZ) 0907 (Given - Provider: Faizan Mixon, RN)1351 (Given - Provider: Faizan Mixon RN)2219 (Given - Provider: Izabela Pierson RN) 0736 (Given - Provider: Lizeth Nixon, LIZZ) 50 mg, Oral, THREE TIMES A DAY, First do se on Tue03/09/13 at 0915, Until Discontinued, This medication has a Blackbox Warning. Click the formulary reference link for more information. white petrolatum-mineral oil (AKWA TEARS ; LACRILUBE) 0.5% ophthalmic (EYE) ointment 1 Application 1036 (Given - Provider: Zulema Aparicio RN )1999 (Withheld - Provider: Izabela Pierson RN) 09 (Given - Provider: Faizan Mixon RN) 1999 (Not Given - Provider: Izabela Pierson RN - Reason: Clinically appropriate (comment) - Comment: pt is awake) 0738 (Given - Provider: Lizeth Nixon RN) Each Eye, EVERY 12 HOURS, First dose on 03/04/13 at 2215, Until Discontinued Continuous Medication Order 03/13/2013 03/14/2013 03/15/2013 sodium chloride 3% IV infusion (CANCELED) 1248 (New Ba g - Provider: Zulema Aparicio RN) 25 mL/hr, Intravenous, CONTINUOUS, Start ing 03/06/13 at 1815, Until Tue03/14/13 at 1101 PRN Medication Order 03/13/2013 03/14/2013 03/15/2013 saline FLUSH syringe 10-20 mL 10-20 mL, Intracatheter, NEEDED, Star ting 03/07/13 at 1251, Until Sole 03/15/13 at 1945, Line Care, For Central Venous Catheter Line Care saline FLUSH syringe 5 mL 1407 (Given - Provider: Jen beltran RN) 5 mL, Intravenous, NEEDED, Starting T ue 03/13/13 at 0725, Until Sole 03/15/13 at 1945, Line Care acetaminophen (TYLENOL) rectal suppository 650 mg 650 mg, Rectal, EVERY 4 HOURS NEEDED, Starting 03/04/13 at 2212, Until Sole 03/15/13 at 1945, mild pain or fever bisacodyl (DULCOLAX) 10 mg rectal suppository 1 Suppository 1 Suppository, Rectal, DAILY NEEDED, Starting Tue03/05/13 at 1118, Until Sole 03/15/13 at 1945, Constipation cisatracurium (NIMBEX) BOLUS injection (conc: 2 mg/mL) 6.2 mg () 0842 (Given - Provider: Zulema Aparicio RN) 0.1 mg/kg ? 62 kg (Dosing weight) = 6.2 mg, IV Push, INTRA-PROCEDURE NEEDED, Starting Tue03/13/13 at 0725, Until Tue03/14/13 at 0724, per procedure fentaNYL (SUBLIMAZE) injection 50-200 mcg () 14 07 (Given - Provider: Jen Gonzalez RN) 50-200 mcg, Intravenous, INTRA-PROCEDURE NEEDED, Starting Tue03/13/13 at 1352, Until Tue03/14/13 at 0151, for pain, This medication has a Blackbox Warning. Click the formulary reference link for more information. fentaNYL (SUBLIMAZE) injection 62-124 mcg () 08 33 (Given - Provider: Zulema Aparicio RN)0846 (Given - Provider: Zulema Aparicio RN) 1-2 mcg/kg ? 62 kg (Dosing weight) = 62-124 mcg, Intravenous, INTRA-PROCEDURE NEEDED, Starting Tue03/13/13 at 0725, Until Tue03/14/13 at 0724, per procedure, This medication has a Blackbox Warning. Cl ick the formulary reference link for more information. haloperidol (HALDOL) injection 5 mg (CANCELED) 0038 (G iven - Provider: Liza rCaven, LIZZ) 5 mg, Intravenous, EVERY 6 HOURS NEED ED, Starting Tue03/09/13 at 0908, Until Tue03/15/13 at 1945, Agitation HYDROmorphone (PF) (DILAUDID) syringe 0.5-1 mg 0035 (G iven - Provider: Liza Craven RN)0231 (Given - Provider: Liza Craven RN)0353 (Given - Provider: Liza Craven RN)0509 (Given - Provider: Liza Craven RN)0609 (Given - Provider: Liza Craven RN) 0432 (Given - Provider: Devendra Ryan)0908 (Given - Provider: Faizan Mixon RN)1351 (Given - Provider: Faizan Mixon RN)1644 (Given - Provider: Lizeth Nixon, RN)2155 (Given - Provider: Izabela Pierson RN) 0534 (Given - Provider: Devendra Ryan)1132 (Given - Provider: Lizeth Nixon, LIZZ) 0.5-1 mg, Intravenous, EVERY 1 HOUR N EEDED, Starting Tue03/05/13 at 0937, Until Tue03/15/13 at 1945, for acpttvkv-cn-slwpyf pain or if not tolerating oral intake 1001 (Given - Provider: Zulema Aparicio RN )1622 (Given - Provider: Zulema Aparicio RN)1928 (Given - Provider: Zulema Aparicio RN)2118 (Given - Provider: Izabela Pierson RN)2342 (Given - Provider: Izabela Pierson RN) midazolam (VERSED) injection 0.5-2 mg () 1407 ( Given - Provider: Jen Gonzalez RN)1426 (Given - Provider: Rebecca Hussein, LIZZ) 0.5-2 mg, Intravenous, INTRA-PROCEDURE A S NEEDED, Starting Tue03/13/13 at 1352, Until Tue03/14/13 at 0151, for sedation, This medication has a Blackbox Warning. Click the formulary reference link for more information. midazolam (VERSED) injection 1-2 mg () 0830 (Gi francisco - Provider: Zulema Aparicio RN)0840 (Given - Provider: Zulema Aparicio RN) 1-2 mg, Intravenous, INTRA-PROCEDURE NEEDED, Starting Tue03/13/13 at 0725, Until Tue03/14/13 at 0724, per procedure, This medication has a Blackbox Warning. Click the formulary reference link for more information. propofol ( DIPRIVAN ) IV infusion (conc: 10 mg/mL) (EX PIRED) 0730 (New Bag - Provider: Zulema Aparicio RN)0840 (Rate Change - Provider: Zulema Aparicio RN)0850 (New Bag - Provider: Zulema Aparicio RN)0922 (Stopped - Provider: Zulema Aparicio RN) 50-100 mcg/kg/min ? 62 kg (Dosing weight) = 18.6-37.2 mL/hr, Intravenous, INTRA-PROCEDURE NEEDED, Starting Tue03/13/13 at 1202, Until Tue03/13/13 at 1601 senna-docusate (SENNA- S) tablet 2 Tab 2 Tab, Oral, TWICE A DAY NEEDED, Star ting Tue03/06/13 at 0851, Until Tue03/15/13 at 1945, Constipation white petrolatum-mineral oil (AKWA TEARS ; LACRILUBE) 0.5% ophthalmic (EYE) ointment 1 Application Each Eye, NEEDED, Starting Sun 3 at 2212, Until Tue03/15/13 at 1945, Dry Eye(s) No Frequency Medication Order 03/13/2013 03/14/2013 03/15/2013 PROPOFOL 10 MG/ML IV (COMPLETED) 0730 (New Bag - Provider: Zulema Aparicio RN) 1 dose, Starting on Tue03/13/13 at 0740, Until Tue03/13/13 at 0730, ZULEMA APARICIO: cabinet override SODIUM CHLORIDE 0.9 % IV (COMPLETED) 0353 (New Bag - P rovider: Liza Craven RN) 1 dose, Starting Tue03/13/13 at 0307, Until Tue03/13/13 at 0353 SODIUM CHLORIDE 0.9 % IV (COMPLETED) 0143 (New Bag - Provider: Izabela Pierson, LIZZ) 1 dose, Starting on Tue03/15/13 at 0143, Until Tue03/15/13 at 0143 SODIUM CHLORIDE 0.9 % IV (COMPLETED) 0509 (New Bag - Provider: Izabela Peirson, LIZZ) 1 dose, Starting on Tue03/15/13 at 0404, Until Tue03/15/13 at 0509 documented in this encounter Care Teams Radio Talk Show Host Relationship Specialty Start Date End Date Line, Ed Referral PCP - General 03/04/13 07/18/13 ED REFERRAL LINE - ED USE ONLY Line, Ed Referral PCP - [facility] 03/04/13 ED REFERRAL LINE - ED USE ONLY documented as of this encounter
--- OUTSIDE RECORDS SUMMARY | 2022-06-13 21:38 | XMS_ITS | Clinical Summary ---
:1975 Author Organization [facility] Address [address] [place] [address] Care Team Providers Name Role Phone Jeremy Gibbs MD Unavailable Jose Monahan MD Unavailable Lise Mcqueen MD Unavailable [phone] Mar Alfaro Primary Care Provider Ta Lane OD Unavailable Allergies Active Allergy Reactions Severity Noted Date Comments No Known Allergies 01/23/2003 Medications Medication Sig Dispensed Refills Start Date End Date Status CLONAZEPAM PO Take 0.5 mg by 0 A ctive mouth 2 times daily as needed for anxiety (or sleep) FLUoxetine HCl (PROZAC Take 40 mg by 0 Active PO) mouth daily BuPROPion HCl Take 300 mg by 0 A ctive (WELLBUTRIN XL mouth PO)Indications: NOT TAKING SUMAtriptan (IMITREX) 25 Take 25 mg by 0 Active MG tablet mouth at onset of headache for migraine VITAMIN D, Take 2,000 Units 0 Ac tive CHOLECALCIFEROL, PO by mouth daily Take 2 tablets by mouth once a day Fish Oil-Cholecalciferol Take 1 capsule by 0 Active (FISH OIL + D3) mouth daily 5681-0791 MG-UNIT CAPSIndications: NOT TAKING hydrOXYzine (ATARAX) 25 Take 25-50 mg by 0 Active MG tablet mouth At Bedtime Take 2 tablets by mouth at bedtime oxyCODONE IR Take 1 tablet (5 15 tablet 0 08/10/2017 Active (ROXICODONE) 5 MG mg) by mouth tabletIndications: every 4 hours as Postoperative eye state needed for pain maximum 6 tablet(s) per day amLODIPine (NORVASC) 2.5 Take 2.5 mg by 0 06/03/2020 Active MG tablet mouth chlorthalidone Take 25 mg by 0 07/02/2020 Active (HYGROTON) 25 MG tablet mouth donepezil (ARICEPT) 5 MG Take 5 mg by 0 06/10/2020 Active tablet mouth DULoxetine (CYMBALTA) 30 every evening 0 05/11/2020 Active MG capsule hydrochlorothiazide Take 25 mg by 0 01/23/2020 Active (HYDRODIURIL) 25 MG mouth daily tablet levonorgestrel (MIRENA) 1 Device by 0 06/17/2020 Active 20 MCG/24HR IUD Intrauterine route metoprolol succinate ER Take 50 mg by 0 08/17/2019 Active (TOPROL-XL) 50 MG 24 hr mouth daily tablet SUMAtriptan (IMITREX) 25 Take 1 tablet by 0 02/06/20 20 Active MG tablet mouth at onset of migraine. If headache persists after 2 hours, take another dose. max of 2 tabs in 24 hours. [id number] Administer 1 drop 5 mL 0 021 Active ethasone (MAXITROL) 0.1 in left eye 4 % ophthalmic times per day suspensionIndications: Ptosis, left eyelid erythromycin (ROMYCIN) 5 Place 0.5 inches 3.5 g 0 11/13/19 21 Active MG/GM ophthalmic Into the left eye ointmentIndications: At Bedtime Ptosis, left eyelid gabapentin (NEURONTIN) Take 400 mg by 0 09/13/2021 Active 400 MG capsule mouth naltrexone TAKE 1/4 TABLET 0 12/08/2021 Ac tive (DEPADE/REVIA) 50 MG BY MOUTH ONCE tablet DAILY FOR 7 DAYS, THEN INCREASE TO 1/2 TABLET ONCE DAILY FOR 7 DAYS, THEN TAKE 1 WHOLE TABLET ONCE DAILY THERE DULoxetine (CYMBALTA) 30 Take 90 mg by 0 09/16/2021 Active MG capsule mouth Active Problems Problem Noted Date Ptosis, left eyelid 10/03/2020 Overview: Added automatically from request for steven ignacio [id number] Paralytic strabismus, sixth or abducens nerve palsy, 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 from Last 3 Months Immunizations Name Administration Dates Next Due Dates Unk - Records Requested 01/23/2003 Family History Medical History Relation Comments Allergies Brother 1 spring Cardiovascular Father [place] twice Hypertension Father Hypertension Maternal Grandfather Hypertension Maternal Grandmother Allergies Sister spring Diabetes No family hx of Glaucoma No family hx of Macular Degeneration No family hx of Relation Status Comments Brother 1 Alive Brother 2 Alive Daughter 1 Alive Daughter 2 Alive Father Alive Maternal Grandfather Maternal Grandmother Mother Alive Sister Alive Son Alive Social History Tobacco Use Types Packs/Day Years Used Date Smoking Tobacco: Former Cigarettes 0.3 2 Smokeless Tobacco: Current Tobacco Cessation: Counseling Given: No Comments: pt reports quitting cigarettes about 2 years ago, uses a vaporizer currently Alcohol Use Standard Drinks/Week Comments Yes 0 (1 standard drink = 0.6 oz pure alcoho l) occasional Sex Assigned at Date Recorded Not on file Last Filed Vital Signs Vital Sign Reading Time Taken Comments Blood Pressure 138/80 11/12/2020 3:00 PM CDT Pulse 68 11/12/2020 3:00 PM CDT Temperature 36.7 ??C (98 ??F) 11/12/2020 3:00 PM CDT Respiratory Rate 16 11/12/2020 3:00 PM CDT Oxygen Saturation 98% 11/12/2020 3:00 PM CDT Inhaled Oxygen Concentration - - Weight 90.7 kg (200 lb) 11/12/2020 11:48 AM CDT Height 154.9 cm (5' 1) 11/12/2020 11:48 AM CDT Body Mass Index 37.79 11/12/2020 11:48 AM CDT Plan of Treatment Health Maintenance Due Date Last Done Comments ADVANCE CARE PLANNING 1975 ANNUAL REVIEW OF HM ORDERS 1975 CT COLONOGRAPHY 1975 FIT-DNA (Cologuard) 1975 FIT 1975 FLEX SIG 1975 COLONOSCOPY 1985 COLORECTAL CANCER SCREENING 1985 HIV SCREENING 1990 HEPATITIS C SCREENING 1993 PAP 1996 HEPATITIS B IMMUNIZATION (2 03/09/2005 02/09/2005 of 3 - 3-dose series) LIPID 2020 COVID-19 Vaccine (3 - 12/02/2021 10/07/2021, 12/10/2020 Booster for Aissatou series) INFLUENZA VACCINE (#1) 2022 05/17/2021, 04/21/2020, 05/31/2014, Additional history exists MAMMO SCREENING 11/19/2022 11/19/2021 MEDICARE ANNUAL WELLNESS 11/19/2022 11/19/2021 VISIT DTAP/TDAP/TD IMMUNIZATION 03/04/2023 03/04/2013, 05/10/2012 , (4 - Td or Tdap) 02/09/2005, Additional history exists PHQ-2 (once per calendar Completed 12/25/2021, 10/21/2021, year) 11/10/2020, Additional history exists IPV IMMUNIZATION Aged Out No longer eligi ble based on patient 's age to complete this topic MENINGITIS IMMUNIZATION Aged Out No longe r eligible based on patient 's age to complete this topic Pneumococcal Vaccine: Aged Out No longer eligible Pediatrics (0 to 5 Years) based on patient's age and At-Risk Patients (6 to to co mplete this topic 64 Years) Insurance Payer Benefit Plan / Subscriber ID Effective Dates Phone Addre ss Type Group MEDICARE MEDICARE [id number] 2015-Presen [phone] ATTN CLA [facility] Medicare t 40 [address] [facility] [place] [address] BLUE PLUS BLUE PLUS [id number] 2019-Presen [phone] [address] [address] HMO ADVANTAGE [address] [place] [address] [place] Personal/Famil Self [address] y (Home) [place] [id number] Care Teams Oncology Admin Relationship Specialty Start Date End Date DominicMar PCP - General 05/31/17 [facility] [address] [place] [address] Jeremy Gibbs MD MD Ophthalmology 12/10/14 Jose Monahan MD MD Ophthalmology 12/10/14 Lise Mcqueen MD Ophthalmology 05/31/17 [address] [address] [place] [address], OD Assigned Surgical Provider 01/02/22 [address] [place] [address]
--- OUTSIDE RECORDS SUMMARY | 2022-06-13 21:38 | XMS_ITS | Encounter Summary ---
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 Signature GROUP AND RH A Positive 03/04/2013 [facility] 8:26 PM CDT ANTIBODY Negative 03/04/2013 [facility] SCREEN 8:26 PM CDT Specimen Anatomical Collection Method Collection Time Receive d Time (Source) Location / / Volume Laterality Blood specimen 03/04/2013 7:30 PM 013 7:34 (specimen) CDT PM CDT Faizan Fishman MD BLOOD BANK ORDERABLE Performing Organization Address City/[facility]/ZIP Code Phon e [place] [address] [address] [facility] HCLL (ABNORMAL) Alcohol (ETOH), Blood (03/04/2013 7:30 PM CDT) P athologist Signature ALCOHOL 36 (H) <6 mg/dL 03/04/2013 [facility] (ETOH), PLASMA 7:57 PM CDT LABORATORY Specimen Anatomical Collection Method Collection Time Receive d Time (Source) Location / / Volume Laterality Blood specimen 03/04/2013 7:30 PM 013 7:34 (specimen) CDT PM CDT Faizan Fishman MD CHEMISTRY ORDERABLE Performing Organization Address City/[facility]/ZIP Code Phon e Number [facility] [address] [place] [address] 5542 (ABNORMAL) Gases Venous Peripheral (03/04/2013 7:30 PM CDT) Analysis Performed At Patho logist Time Signature PH VENOUS 7.34 7.30 - 03/04/2013 [facility] 7.40 7:57 PM CDT LABORATORY 02 SAT VENOUS 87.5 (H) 60.0 - 03/04/2013 [facility] 80.0 % 7:57 PM CDT LABORATORY PO2 VENOUS 55 (L) 75 - 100 03/04/2013 [facility] mm Hg 7:57 PM CDT LABORATORY BASE EXCESS -3.4 (L) -3.0 - 2.0 03/04/2013 [facility] VENOUS mMol/L 7:57 PM CDT LABORATORY PCO2 VENOUS 43 36 - 51 mm 03/04/2013 [facility] Hg 7:57 PM CDT LABORATORY HCO3 VENOUS 22 22 - 29 03/04/2013 [facility] mMol/L 7:57 PM CDT LABORATORY Specimen Anatomical Collection Method Collection Time Receive d Time (Source) Location / / Volume Laterality Blood specimen 03/04/2013 7:30 PM 013 7:34 (specimen) CDT PM CDT Faizan Fishman MD CHEMISTRY ORDERABLE Performing Organization Address City/State/ZIP Code Phon e Number [facility] [address] [place] [address] LABORATORY [facility] [address] [place], [place] [address] (ABNORMAL) Lactic Acid (03/04/2013 7:30 PM CDT) athologist Signature LACTIC ACID 2.3 (H) 0.7 - 2.1 03/04/2013 [facility] mMol/L 7:38 PM CDT LABORATORY Specimen Anatomical Collection Method Collection Time Receive d Time (Source) Location / / Volume Laterality Blood specimen 03/04/2013 7:30 PM 013 7:34 (specimen) CDT PM CDT Faizan Fishman MD CHEMISTRY ORDERABLE Performing Organization Address City/State/ZIP Code Phon e Number [facility] [address] [place] [address] LABORATORY [facility] [address] [place], [place] [address] Trauma / Stroke Creat / GFR (03/04/2013 7:30 PM CDT) P athologist Signature EST GFR >60 >60 mL/min 03/04/2013 [facility] (CKD-EPI) 7:45 PM CDT LABORATORY EST GFR IF >60 >60 mL/min 03/04/2013 [facility] AM 7:45 PM CDT LABORATORY CREATININE 0.80 0.40 - 03/04/2013 [facility] 1.10 mg/dL 7:45 PM CDT LABORATORY Specimen Anatomical Collection Method Collection Time Receive d Time (Source) Location / / Volume Laterality Blood specimen 03/04/2013 7:30 PM 013 7:34 (specimen) CDT PM CDT Narrative [facility] LABORATORY - 03/04/2013 7 :45 PM CDT Person Notified: JULIÁN , Unit: CT. ?? Time Notified: 7:45 PM Faizan Fishman MD CHEMISTRY ORDERABLE Performing Organization Address City/State/ZIP Code Phon e Number [facility] [address] [place] [address] LABORATORY [facility] [address] [place], [place] [address] Glucose, Serum (03/04/2013 7:30 PM CDT) athologist [facility] GLUCOSE 85 60 - 100 03/04/2013 [facility] mg/dL 7:48 PM CDT LABORATORY Specimen Anatomical Collection Method Collection Time Receive d Time (Source) Location / / Volume Laterality Blood specimen 03/04/2013 7:30 PM 013 7:34 (specimen) CDT PM CDT Faizan Fishman MD CHEMISTRY ORDERABLE Performing Organization Address City/State/ZIP Code Phon e Number [facility] [address] [place] [address] LABORATORY [facility] [address] [place], [place] [address] Platelet Count (03/04/2013 7:30 PM CDT) [facility] PLATELET COUNT 196 150 - 400 03/04/2013 [facility] K/uL 7:41 PM CDT LABORATORY Specimen Anatomical Collection Method Collection Time Receive d Time (Source) Location / / Volume Laterality Blood specimen 03/04/2013 7:30 PM 013 7:34 (specimen) CDT PM CDT Faizan Fishman MD HEMATOLOGY ORDERABLE Performing Organization Address City/[facility]/ZIP Code Phon e Number [facility] [address] [place] [phone] LABORATORY [facility] [address] [place], [place] [address] Hemoglobin (03/04/2013 7:30 PM CDT) athologist [facility] HEMOGLOBIN 12.4 12.0 - 16.0 03/04/2013 [facility] gm/dL 7:41 PM CDT LABORATORY Specimen Anatomical Collection Method Collection Time Receive d Time (Source) Location / / Volume Laterality Blood specimen 03/04/2013 7:30 PM 013 7:34 (specimen) CDT PM CDT Faizan Fishman MD HEMATOLOGY ORDERABLE Performing Organization Address City/State/ZIP Code Phon e Number [facility] [address] [place] [address] LABORATORY [facility] [address] [facility] [place], [place] [address] ABORh Confirm (Lab Use Only) [...] Organization Address City/State/ZIP Code Phon e Number [facility] [place] [address] [address] [facility] Extra Tube-Blood Bank (Lab Use Only) (03/04/2013 7:27 PM CDT) Specimen Anatomical Collection Method Collection Time Receive d Time (Source) Location / / Volume Laterality Blood specimen 03/04/2013 7:27 PM 013 7:36 (specimen) CDT PM CDT Faizan Fishman MD BLOOD BANK ORDERABLE Performing Organization Address City/State/ZIP Code Phon e Number [facility] [address] [place] [address] LABORATORY documented in this encounter Visit Diagnoses Not on filedocumented in this encounter Active and Recently Administered [...] RN) 0907 (Given - Provider: Faizan Mixon RN)2000 (Withheld - Provider: Izabela Pierson RN) 0737 (Given - Provider: Lizeth Nixon, LIZZ) 15 mL, Swab, EVERY 12 HOURS, First dose on Tue03/04/13 at 2215, Until Discontinued, Discontinue when Patient Extubated / Off Ventilator ciprofloxacin ( CIPRO ) 400 mg IV piggyback 0628 (Give n - Provider: Liza Craven RN)1514 (Given - Provider: Zulema Aparicio, LIZZ)2249 (Given - Provider: Izabela Pierson RN) 0609 (Given - Provider: Devendra Ryan)1503 (Given - Provider: Lizeth Nixon, LIZZ)2217 (Given - Provider: Izabela Pierson RN) 0605 (Given - Provider: Izabela Pierson RN) 400 mg, Intravenous, EVERY 8 HOURS (NS), 24 doses, First dose on Tue03/09/13 at 1500, Last dose on Tue03/17/13 at 0700, for 60 Minutes docusate sodium (COLACE) (conc: 50 mg/5 mL) oral solut ion 100 mg 0748 (Given - Provider: Zulema Aparicio RN)1950 (Given - Provider: Izabela Pierson RN) 0907 [...] [phone] (Given - Provider: Izabela Pierson RN) 09 (Given - Provider: Faizan Mixon RN) 2215 [...] Feeding Tube, DAILY, First dose o n 03/14/13 at 0800, Until Discontinued levetiracetam (KEPPRA) 500 mg in sodium chloride 0.9 % 100 mL IV piggyback (CANCELED) 0748 (Given - Provider: Zulema Aparicio RN )1948 (Given - Provider: Izabela Pierson RN) 0907 [...] Zulema Aparicio RN) 0908 (Given - Provider: aFizan Mixon RN) 0800 (Not Giv en - Provider: Lizeth Nixon RN - Reason: Clinically appropriate (comment) - Comment: diarrhea) 17 g, Oral, DAILY, First dose on Tue03/06/13 at 0915, Until Disc ontinued potassium chloride (KLOR-CON) packet 20 mEq (COMPLETED ) 0012 (Given - Provider: Liza Craven RN) 20 mEq, Oral, ONE TIME DOSE, 1 dose, Tue03/12/13 at 2330 potassium chloride (KLOR-CON) packet 40 mEq (COMPLETED) 0907 (Given - Provider: Faizan Mixon RN) 40 mEq, oral, ONCE, 1 dose, On Tue03/14/13 at 0800 potassium chloride (KLOR-CON) packet 40 mEq (COMPLETED) 1551 (Given - Provider: Lizeth Nixon RN) 40 mEq, oral, ONCE, 1 dose, On Tue03/14/13 at 1545 potassium chloride (KLOR-CON) packet 40 mEq (COMPLETED) 0558 (Given - Provider: Izabela Pierson RN) 40 mEq, oral, ONCE, 1 dose, On Tue03/15/13 at 0600 QUEtiapine (SEROQUEL) tablet 50 mg 0748 (Given - Provi adolph: Zulema Aparicio RN)1327 (Given - Provider: Zulema Aparicio RN)2255 (Given - Provider: Izabela Pierson RN) 0907 (Given - Provider: Faizan Mixon RN)1351 (Given - Provider: Faizan Mixon, RN)2219 (Given - Provider: Izabela Pierson RN) 0736 (Given - Provider: Lizeth Nixon RN) 50 mg, Oral, THREE TIMES A DAY, First do se on Tue03/09/13 at 0915, Until Discontinued, This medication has a Blackbox Warning. Click the formulary reference link for more information. white petrolatum-mineral oil (AKWA TEARS ; LACRILUBE) 0.5% ophthalmic (EYE) ointment 1 Application 1036 (Given - Provider: Zulema Aparicio, RN )1999 (Withheld - Provider: Izabela Pierson, RN) 0908 (Given - Provider: Faizan Mixon RN) 1999 (Not Given - Provider: Izabela Pierson RN - Reason: Clinically appropriate (comment) - Comment: pt is awake) 0738 (Given - Provider: Lizeth Nixon, LIZZ) Each Eye, EVERY 12 HOURS, First dose on Tue03/04/13 at 2215, Until Discontinued Continuous Medication Order 03/13/2013 03/14/2013 03/15/2013 sodium chloride 3% IV infusion (CANCELED) 1248 (New Ba g - Provider: Zulema Aparicio RN) 25 mL/hr, Intravenous, CONTINUOUS, Start ing Tue03/06/13 at 1815, Until Tue03/14/13 at 1101 PRN Medication Order 03/13/2013 03/14/2013 03/15/2013 saline FLUSH syringe 10-20 mL 10-20 mL, Intracatheter, NEEDED, Star ting Tue03/07/13 at 1251, Until Sole 03/15/13 at 1945, Line Care, For Central Venous Catheter Line Care saline FLUSH syringe 5 mL 1407 (Given - Provider: Jen beltran RN) 5 mL, Intravenous, NEEDED, Starting T ue 03/13/13 at 0725, Until Sole 03/15/13 at 1945, Line Care acetaminophen (TYLENOL) rectal suppository 650 mg 650 mg, Rectal, EVERY 4 HOURS NEEDED, Starting Tue03/04/13 at 2212, Until Tue03/15/13 at 1945, mild pain or fever bisacodyl (DULCOLAX) 10 mg rectal suppository 1 Suppository 1 Suppository, Rectal, DAILY NEEDED, Starting 03/05/13 at 1118, Until Tue03/15/13 at 1945, Constipation cisatracurium (NIMBEX) BOLUS injection (conc: 2 mg/mL) 6.2 mg () 0842 (Given - Provider: Zulema Aparicio RN) 0.1 mg/kg ? 62 kg (Dosing weight) = 6.2 mg, IV Push, INTRA-PROCEDURE NEEDED, Starting Tue03/13/13 at 0725, Until Tue03/14/13 at 0724, per procedure fentaNYL (SUBLIMAZE) injection 50-200 mcg () 14 07 (Given - Provider: Jen Gonzalez, LIZZ) 50-200 mcg, Intravenous, INTRA-PROCEDURE NEEDED, Starting Tue03/13/13 at 1352, Until Tue03/14/13 at 0151, for pain, This medication has a Blackbox Warning. Click the formulary reference link for more information. fentaNYL (SUBLIMAZE) injection 62-124 mcg () 08 33 (Given - Provider: Zulema Aparicio, LIZZ)0846 (Given - Provider: Zulema Aparicio, LIZZ) 1-2 mcg/kg ? 62 kg (Dosing weight) = 62-124 mcg, Intravenous, INTRA-PROCEDURE NEEDED, Starting Tue03/13/13 at 0725, Until Tue03/14/13 at 0724, per procedure, This medication has a Blackbox Warning. Cl ick the formulary reference link for more information. haloperidol (HALDOL) injection 5 mg (CANCELED) 0038 (G iven - Provider: Liza Craven RN) 5 mg, Intravenous, EVERY 6 HOURS NEED ED, Starting Tue03/09/13 at 0908, Until Sole 03/15/13 at 1945, Agitation HYDROmorphone (PF) (DILAUDID) syringe [...] Mixon RN)1644 (Given - Provider: Lizeth Nixon, LIZZ)2155 (Given - Provider: Izabela Pierson RN) 0534 (Given - Provider: Devendra Ryan)1132 (Given - Provider: Lizeth L Hussain, RN) 0.5-1 mg, Intravenous, EVERY 1 HOUR N EEDED, Starting 03/05/13 at 0937, Until Sole 03/15/13 at 1945, for zcqrattn-cx-nrzyzl pain or if not tolerating oral intake 1001 (Given - Provider: Zulema Aparicio RN )1622 (Given - Provider: Zulema Aparicio RN)1928 (Given - Provider: Zulema Aparicio RN)2118 (Given - Provider: Izabela Pierson RN)2342 (Given - Provider: Izabela Pierson RN) midazolam (VERSED) injection 0.5-2 mg () 1407 ( Given - Provider: Jen Gonzalez RN)1426 (Given - Provider: Rebecca Hussein RN) 0.5-2 mg, Intravenous, INTRA-PROCEDURE A S NEEDED, [...] Aparicio RN)0850 (New Bag - Provider: Zulema Aparicio, LIZZ)0922 (Stopped - Provider: Zulema Aparicio RN) 50-100 mcg/kg/min ? 62 kg (Dosing weight) = 18.6-37.2 mL/hr, Intravenous, INTRA-PROCEDURE NEEDED, Starting Tue03/13/13 at 1202, Until Tue03/13/13 at 1601 senna-docusate (SENNA- S) tablet 2 Tab 2 Tab, Oral, TWICE A DAY NEEDED, Star ting 03/06/13 at 0851, Until Sole 03/15/13 at 1945, Constipation white petrolatum-mineral oil (AKWA TEARS ; LACRILUBE) 0.5% ophthalmic (EYE) ointment 1 Application Each Eye, NEEDED, Starting Sun 3 at 2212, Until Sole 03/15/13 at 1945, Dry Eye(s) No Frequency Medication Order 03/13/2013 03/14/2013 03/15/2013 PROPOFOL 10 MG/ML IV (COMPLETED) 0730 (New Bag - Provider: Zulema Aparicio, RN) 1 dose, Starting on 03/13/13 at 0740, Until 03/13/13 at 0730, ZULEMA APARICIO: cabinet override SODIUM CHLORIDE 0.9 % IV (COMPLETED) 0353 (New Bag - P rovider: Liza Craven, RN) 1 dose, Starting 03/13/13 at 0307, Until 03/13/13 at 0353 SODIUM CHLORIDE 0.9 % IV (COMPLETED) 0143 (New Bag - Provider: Izabela Pierson, LIZZ) 1 dose, Starting on Sole 03/15/13 at 0143, Until Sole 03/15/13 at 0143 SODIUM CHLORIDE 0.9 % IV (COMPLETED) 0509 (New Bag - Provider: Izabela Pierson, LIZZ) 1 dose, Starting on Sole 03/15/13 at 0404, Until Sole 03/15/13 at 0509 documented in this encounter Care Teams Chief Wellness Officer Relationship Specialty Start Date End Date Line, Ed Referral PCP - General 03/04/13 07/18/13 ED REFERRAL LINE - ED USE ONLY Line, Ed Referral PCP - [facility] 03/04/13 ED REFERRAL LINE - ED USE ONLY documented as of this encounter
--- OUTSIDE RECORDS SUMMARY | 2022-06-13 21:39 | XMS_ITS | Encounter Summary ---
:1975 Author Organization [facility] Address [address] [place] [address] Care Team Providers Name Role Phone Jeremy Gibbs MD Unavailable Jose Monahan MD Unavailable Lise Mcqueen MD Unavailable [phone] Mar Alfaro Primary Care Provider Lise Mcqueen MD Unavailable [phone] Encounter Details Date Type Department Care Team Description 10/01/2020 Travel Social History Tobacco Use Types Packs/Day Years Used Date Smoking Tobacco: Former Cigarettes 0.3 2 Smokeless Tobacco: Current Comments: pt reports quitting cigarettes about 2 years ago, uses a vaporizer currently Alcohol Use Standard Drinks/Week Comments Yes 0 (1 standard drink = 0.6 oz pure alcoho l) occasional Sex Assigned at Date Recorded Not on file COVID-19 Exposure Response Date Recorded In the last month, have you been in contact with No / Unsure 10/01/2020 1:25 PM 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 documented as of this encounter Plan of Treatment Not on filedocumented as of this encounter Visit Diagnoses Not on filedocumented in this encounter Care Teams Curtain Worker Relationship Specialty Start Date End Date Mar Alfaro PCP - General 05/31/17 [facility] [address] [place] [address] Jeremy Gibbs MD MD Ophthalmology 12/10/14 Jose Monahan MD MD Ophthalmology 12/10/14 Lise Mcqueen MD Ophthalmology 05/31/17 [facility] [address] [place] [address] Lise Mcqueen, Assigned Surgical Provider [address] [place] [address] documented as of this encounter
--- OUTSIDE RECORDS SUMMARY | 2022-06-13 21:39 | XMS_ITS | Encounter Summary ---
:1975 Author Organization [facility] Address [address] [place] [address]. [place] [address] Care Team Providers Name Role Phone Jeremy Gibbs MD Unavailable Jose Monahan MD Unavailable Lise Mcqueen MD Unavailable [phone] Mar Alfaro Primary Care Provider Lise Mcqueen MD Unavailable [phone] Encounter Details Date Type Department Care Team Description 09/30/2020 Telephone [facility] Trace Jonh richardson MD [address] Floor [place] [address] [phone] Social History Tobacco Use Types Packs/Day Years Used Date Smoking Tobacco: Former Cigarettes 0.3 2 Smokeless Tobacco: Current Comments: pt reports quitting cigarettes about 2 years ago, uses a vaporizer currently Alcohol Use Standard Drinks/Week Comments Yes 0 (1 standard drink = 0.6 oz pure alcoho l) occasional Sex Assigned at Date Recorded Not on file documented as of this encounter Miscellaneous Notes Telephone Encounter - Kassandra Collins - 09/30/2020 2:43 PM CST Spoke with patient and outlined visitor restrictions. Kassandra Collins MENT ASSEMBLER documented in this encounter Plan of Treatment Not on filedocumented as of this encounter Visit Diagnoses Not on filedocumented in this encounter Care Teams Clinical Nurse Manager Relationship Specialty Start Date End Date Mar Alfaro PCP - General 05/31/17 [facility] [address] [place] [address] Jeremy Gibbs MD MD Ophthalmology 12/10/14 Jose Monahan MD MD Ophthalmology 12/10/14 Lise Mcqueen MD Ophthalmology 05/31/17 [address] [facility] [address] [place] [address] Lise Mcqueen, Assigned Surgical Provider [address] [facility] [address] [place] [address] documented as of this encounter
--- OUTSIDE RECORDS SUMMARY | 2022-06-13 21:39 | XMS_ITS | Encounter Summary ---
:1975 Author Organization [facility] Address [address] [place] [address]. [place] [address] Care Team Providers Name Role Phone Jeremy Gibbs MD Unavailable Jose Monahan MD Unavailable Lise Mcqueen MD Unavailable [phone] Mar Alfaro Primary Care Provider Lise Mcqueen MD Unavailable [phone] Jonh Garcia MD Unavailable Reason for Visit Reason Onset Date Comments Schedule Surgery 10/03/2020 Appointment 10/03/2020 PRE-OP PHYSICAL Encounter Details Date Type Department Care Team Description 10/03/2020 Telephone [facility] Eye Jonh Garcia S [facility] Surgery; Clinic - Dick SOLO Appointment (PRE-OP [facility] [address] [facility] PHYSICAL) 4th [place], [place] [id number] Social History Tobacco Use Types Packs/Day Years [...] with No / Unsure 10/01/2020 1:25 PM GRAPHIC DESIGNER someone who was confirmed or suspected to have Coronavirus / COVID-19? documented as of this encounter Miscellaneous Notes Telephone Encounter - Aurelia Eddy - 11/10/2020 9:53 AM CDT Patient called and advised that she no longer needs the covid test at [facility] on 11/12 at 7 Am. At the Patients requested she has been cancelled from her covid appointment on 11/12 at [facility] Patient reports that she has an appointment scheduled at the [facility] on [address] [facility] [facility]. Patient was given the [id number] department number to fax her results [phone]. Patient was also given their direct dial to call to confirm they received her results [phone]. Telephone Encounter - Aurelia Eddy - 11/10/2020 9:03 AM CDT Received patient pre-Op physical paperwork my email today. Patients H&P was faxed to the pre-op nursing department at [phone]. Telephone Encounter - Aurelia Eddy - 11/07/2020 11:30 AM CDT Patient called with concerns of getting her covid test scheduled. Patient reports that she does not know where she can get her covid test placed at.patient reports that she does not drive. Patient was scheduled for a same day covid test on 11/12. Patient is aware that her surgery will be scheduled for the last case of the day. Telephone Encounter - Aurelia Eddy - 11/07/2020 9:02 AM CDT Patient called with concerns of getting her H&P and covid test. Patient has been scheduled for a PAC visit on 11/10 at the [facility] Patients reports that she will find a place in [place] to get her covid test done. Patient was also reminded that she will need to have her covid test placed on 11/08 of 11/10 in order hermann valid for her surgery procedure. Telephone Encounter - Aurelia Eddy - 10/03/2020 11:13 AM CST Spoke with patient to schedule surgery with Dr. Garcia. Surgery was scheduled on 11/12 at [facility] Patient will have H&P at [facility] Patient is aware a COVID-19 test is needed before their procedure. The test should be with-in 4 daysof their procedure. Test Details: Date 11/10 Location [facility] Patient was advised that she must get her covid test placed on 11/10 in order to be valid for her surgery procedure. Patient was encouraged to get her covid test placed at a [facility] location but patient declined due to distance as well as patient does not drive. Patient was also offered to have a same day covid test in the event the patient could not get testedat her clinic. Patient is aware if she has to get a same day covid test she then her surgery will be moved to the end of the day. Post-Op visit was scheduled on 12/01 Patient is aware a delivery route driver/cable weaver is needed day of surgery. Surgery packet was mailed 10/02, patient has my direct contact information for any further questions. HIC DESIGNER Telephone Encounter - Aurelia Eddy - 10/03/2020 10:30 AM CST Called patient to schedule procedure with Dr. Garcia, there was no answer. Left message with my direct line [phone]. HIC DESIGNER documented in this encounter Plan of Treatment Not on filedocumented as of this encounter Visit Diagnoses Not on filedocumented in this encounter Care Teams Swimming Pool Servicer Relationship Specialty Start Date End Date Mar Alfaro PCP - General 05/31/17 [facility] [address] [place] [address] Jeremy Gibbs MD MD Ophthalmology 5/5/15 Jose Monahan MD MD Ophthalmology 12/10/14 Lise Mcqueen MD Ophthalmology 05/31/17 [address] [facility] [address] [place] [address] Lise Mcqueen, Assigned Surgical Provider 10/11/20 [address] [facility] [address] [place] [address] Jonh Garcia MD Assigned Surgical Provider 10/12/20 [address] [place] [address] documented as of this encounter
--- OUTSIDE RECORDS SUMMARY | 2022-06-13 21:39 | XMS_ITS | Encounter Summary ---
:1975 Author Organization [facility] Address [address] [place] [address]. [place] [address] Care Team Providers Name Role Phone Jeremy Gibbs MD Unavailable Jose Monahan MD Unavailable Lise Mcqueen MD Unavailable [phone] Mar Alfaro Primary Care Provider Ta Lane OD Unavailable Reason for Visit Reason Onset Date Comments Wanting script mailed. 04/23/2022 Encounter Details Date Type Department Care Team Description 04/23/2022 [facility] Eye [address] , Wanting script mailed. Clinic - [place] [id number] [facility] [address] [place] [phone] [phone] Social History Tobacco Use Types Packs/Day Years [...] this encounter Miscellaneous Notes Telephone Encounter - Hillary Conte - 04/23/2022 2:[address] [facility] Call Center Phone Message May a detailed message be left on voicemail: yes Reason for Call: Other: Patient called requesting her eye glass prescription to be mailed to her home. She states she lost it. She states it is the script without the prisms. Please advise. Action Taken: Other: eye Travel Screening: Not Applicable documented in this encounter Plan of Treatment Not on filedocumented as of this encounter Visit Diagnoses Not on filedocumented in this encounter Care Teams Rewind Operator Relationship Specialty Start Date End Date Mar Alfaro PCP - General 05/31/17 [facility] [address] [place] [address] Jeremy Gibbs MD MD Ophthalmology 12/10/14 Jose Monahan MD MD Ophthalmology 12/10/14 Lise Mcqueen MD Ophthalmology 05/31/[address] [place] [address], OD Assigned Surgical Provider 01/02/22 [address] [place] [address] documented as of this encounter
--- OUTSIDE RECORDS SUMMARY | 2022-06-13 21:39 | XMS_ITS | Encounter Summary ---
:1975 Author Organization [facility] Address [address] [place] [address]. [place] [address] Care Team Providers Name Role Phone Jeremy Gibbs MD Unavailable Jose Monahan MD Unavailable Lise Mcqueen MD Unavailable [phone] Mar Alfaro Primary Care Provider Jonh Garcia MD Unavailable Reason for Visit Reason Comments Consult For Encounter Details Date Type Department Care Team Description 10/21/2021 Office Visit [facility] [address] onymous bilateral field defects in visual field (Primary Dx); Eye Clinic - Jennings T, OD Alternating esotropia; [address] [place] [address] Myopia of both eyes 4th [place] [address] [phone] Social History Tobacco Use Types Packs/Day Years [...] been in contact with No / Unsure 10/21/2021 1:47 PM CDT someone who was confirmed or suspected to have Coronavirus / COVID-19? 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 Plan: Continue to monitor regularly. 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 Plan: Discussed findings with patient. Advised patient that perfect correction is unlikely given lack of comitance. Plan on following up in about 2 months- consider a near only pair of glasses at that time as horizontal prism need is likely to differ at near. (H52.13) Myopia of both eyes Plan: Discussed findings with patient. New spectacle prescription dispensed to patient. Patient is welcome to return to clinic with prolonged adaptation difficulties. 45 minutes were spent on the date of the encounter doing chart review, history and exam, documentation, and further activities as noted above. Complete documentation of historical and exam elements from today's encounter can be found in the full encounter summary report (not reduplicated in this progress note). I personally obtained the chief complaint(s) and history of present illness. I confirmed and edited as necessary the review of systems, past medical/surgical history, family history, social history, and examination findings as documented by others; and I examined the patient myself. I personally reviewed the relevant tests, images, and reports as documented above. I formulated and edited as necessary the assessment and plan and discussed the findings and management plan with the patient and family. Ta Lane OD documented in this encounter Nursing Keron Herrera COT - 10/21/2021 2:00 PM CDT Chief Complaints and History of Present Illnesses Patient presents with ??? Consult For Chief Complaint(s) and History of Present Illness(es) Consult For Laterality: both eyes Onset: gradual Onset: years ago Course: gradually worsening Associated symptoms: headache. Negative for eye pain, dryness, tearing, flashes, floaters and photophobia Treatments tried: artificial tears Pain scale: 0/10 Comments New Pt her for TBI consult. TBI in 2012. Pt states vision is worse since having a seizure in August. Hx of getting headaches in the past. AT's PRN. 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
--- OUTSIDE RECORDS SUMMARY | 2022-06-13 21:39 | XMS_ITS | Encounter Summary ---
:1975 Author Organization [facility] Address [address] [facility] [place] [address] Care Team Providers Name Role Phone Jeremy Gibbs MD Unavailable Jose Monahan MD Unavailable Lise Mcqueen MD Unavailable [phone] Mar Alfaro Primary Care Provider Reason for Visit Reason Comments Blurred Vision Follow-Up Needs new prescription today , lenses are scratched, is blurry. Pt stands close to T V in order to see TV guide. Reads using straight edge to read in a straight line. Pt gets migraine occasionally, about 1 time per week.Shuts lights off and rests RODRIGUEZ. Sixth Nerve Palsy Pt complains of worsening di plopia d>n, feels that it at both distance and near. Encounter Details Date Type Department Care Team Description 07/22/2020 Office Visit [facility] Lise Mcqueen Left abd ucens nerve palsy (Primary Dx); Clinic Peds Eye MD Mary Lou Diplopia; [address] [place] [address] Alternating esotropia; [facility] [address]RD [place] Hypertropia of right eye 3rd [place] [phone] Social History Tobacco Use Types Packs/Day Years [...] been in contact with No / Unsure 07/22/2020 11:30 AM RAILWAY HEAD TENDER someone who was confirmed or suspected to have Coronavirus / COVID-19? documented as of this encounter Progress Notes Lise Mcqueen MD - 07/22/2020 11:40 AM CST Chief Complaints and History of Present Illnesses Patient presents with ??? Blurred Vision Follow-Up Needs new prescription today, lenses are scratched, is blurry. Pt stands close to TV in order to see TV guide. Reads using straight edge to read in a straight line. Pt gets migraine occasionally, about 1 time per week.Shuts lights off and rests RODRIGUEZ. ??? Sixth Nerve Palsy Pt complains of worsening diplopia d>n, feels that it at both distance and near. Review of systems for the eyes was negative other than the pertinent positives and negatives noted in the HPI. History is obtained from the patient Referring provider: Referred Self Primary care: Mar Alfaro Ja is a 45 year old female who presents with: ICD-10-CM 1. 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 Diplopia H53.2 Sensorimotor 3. 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 Optic atrophy Plan Ms. Peres has stable eye exam with 20/25 vision in each eye and stable residual esotropia and right hypertropia which is corrected with prism in her glasses. Will give new glasses prescription as her present glasses are scratched. 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 Ms. Peres reports that her headaches seem worse lately and may need a change in her medications. F/u 1 year. Further details of the management plan can be found in the Patient Instructions section which was printed and given to the patient at checkout. Return in 1 year (on 07/22/2021) for Next available with Oculoplastics for CATIE ptosis eval.; One year exam with Dr. Mcqueen. Attending Physician Attestation: Complete documentation of historical and exam elements from today'sencounter can be found in the full encounter summary report (not reduplicated in this progress note). I personally obtained the chief complaint(s) and history of present illness. I confirmed and editedas necessary the review of systems, past medical/surgical history, family history, social history, and examination findings as documented by others; and I examined the patient myself. I personally reviewed the relevant tests, images, and reports as documented above. I formulated and edited as necessary the assessment and plan and discussed the findings and management plan with the patient and family.- Lise Mcqueen MD 08/19/2020 10:[address] TENDER documented in this encounter Nursing Notes Geri Rodriguez - 07/22/2020 11:40 AM CST Chief Complaint(s) and History of Present Illness(es) Blurred Vision Follow-Up Laterality: both eyes Onset: unknown Course: gradually worsening Associated symptoms: double vision and headache. Negative for eye pain Treatments tried: glasses Comments: Needs new prescription today, lenses are scratched, is blurry. Pt stands close to TV in order to see TV guide. Reads using straight edge to read in a straight line. Pt gets migraine occasionally, about 1 time per week.Shuts lights off and rests RODRIGUEZ. 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 Negative for eye pain, blurred vision and headaches Treatments tried: glasses and surgery Response to treatment: significant improvement Comments: Pt complains of worsening diplopia d>n, feels that it at both distance and near. Comments Still complains of left sided hemianopsia. WAY HEAD TENDER documented in this encounter Plan of Treatment Not on filedocumented as of this encounter Procedures Procedure Name Priority Date/Time Associated Diagnosis Comme nts SENSORIMOTOR Routine 08/19/2020 10:53 AM Left abducens nerve R esults for this RAILWAY HEAD TENDER palsy procedure are in the Diplopia results section . documented in this encounter Results Sensorimotor (08/19/2020 10:53 AM RAILWAY HEAD TENDER) Narrative Lise Mcqueen MD - 08/19/2020 10:53 AM RAILWAY HEAD TENDER Performed by: Geri Rodriguez, [place] . Patient cooperation: Reliable . Best with 8 CATHY, 2 BD RE for distance. Do es best without correction and no prism at near. Will suppress at near mos t of the time. Diplopia very dependent on head posture. New MRx with prism . Reliability of the test: Good . Test Findings: Strabismus . Plan: Prism therapy . Interval: Same . Lise Mcqueen MD OPHTHALMOLOGY documented in this encounter Visit Diagnoses Diagnosis Left abducens nerve palsy - Primary Diplopia Alternating esotropia Hypertropia of right eye documented in this encounter Care Teams Inspector Tester Sorter Relationship Specialty Start Date End Date Mar Alfaro PCP - General 05/31/17 [facility] [address] [place] [address] Jeremy Gibbs MD MD Ophthalmology 12/10/14 Jose Monahan MD MD Ophthalmology 12/10/14 Lise Mcqueen MD MD Ophthalmology 05/31/[address] [place] [id number] documented as of this encounter
--- OUTSIDE RECORDS SUMMARY | 2022-06-13 21:39 | XMS_ITS | Encounter Summary ---
:1975 Author Organization [facility] Address [address] [place] [address] Care Team Providers Name Role Phone Jeremy Gibbs MD Unavailable Jose Monahan MD Unavailable Lise Mcqueen MD Unavailable [phone] Mar Alfaro Primary Care Provider Jonh Garcia MD Unavailable Encounter Details Date Type Department Care Team Description 10/21/2021 Travel Social History Tobacco Use Types Packs/Day [...] on filedocumented in this encounter Care Teams Stock Parts Fabricator Relationship Specialty Start Date End Date Mar Alfaro PCP - General 05/31/17 [facility] [address] [place] [address] Jeremy Gibbs MD MD Ophthalmology 12/10/14 Jose Monahan MD MD Ophthalmology 12/10/14 Lise Mcqueen MD Ophthalmology 05/31/[address] [place] [address] Jonh Garcia MD Assigned Surgical Provider 10/12/20 [address] [place] [address] documented as of this encounter
--- OUTSIDE RECORDS SUMMARY | 2022-06-13 21:39 | XMS_ITS | Encounter Summary ---
:1975 Author Organization [facility] Address [address] [place] [address] Care Team Providers Name Role Phone Jeremy Gibbs MD Unavailable Jose Monahan MD Unavailable Lise Mcqueen MD Unavailable [phone] Mar Alfaro Primary Care Provider Encounter Details Date Type Department Care Team Description 09/25/2019 Travel Social History Tobacco Use Types Packs/Day Years Used Date Smoking Tobacco: Every Day Cigarettes 0.3 2 Smokeless Tobacco: Never Alcohol Use Standard Drinks/Week Comments Yes 0 (1 standard drink = 0.6 oz pure alcoho l) occasional Sex Assigned at Date Recorded Not on file documented as of this encounter Plan of Treatment Not on filedocumented as of this encounter Visit Diagnoses Not on filedocumented in this encounter Care Teams Automobile Radio Repairer Relationship Specialty Start Date End Date Mar Alfaro PCP - General 05/31/17 [facility] [address] [place] [address] Jeremy Gibbs MD MD Ophthalmology 12/10/14 Jose Monahan MD MD Ophthalmology 12/10/14 Lise Mcqueen MD MD Ophthalmology 05/31/17 [address] [facility] [address] [place] [address] documented as of this encounter
--- OUTSIDE RECORDS SUMMARY | 2022-06-13 21:39 | XMS_ITS | Encounter Summary ---
:1975 Author Organization [facility] Address [address] [place] [address] Care Team Providers Name Role Phone Jeremy Gibbs MD Unavailable Jose Monahan MD Unavailable Lise Mcqueen MD Unavailable [phone] Mar Alfaro Primary Care Provider Jonh Garcia MD Unavailable Encounter Details Date Type Department Care Team Description 10/28/2020 Orders Only [facility] Eye Jonh Garcia E ncounter for Clinic - Dick SOLO screening for other [address] viral diseases 4th [address] [place], [place] [phone] Social History Tobacco Use Types Packs/Day [...] with No / Unsure 10/01/2020 1:25 PM TECHNICAL INSTRUCTOR someone who was confirmed or suspected to have Coronavirus / COVID-19? documented as of this encounter Plan of Treatment Not on filedocumented as of this encounter Visit Diagnoses Diagnosis Encounter for screening for other viral diseases documented in this encounter Care Teams Supervisor Photoengraving Relationship Specialty Start Date End Date Mar Alfaro PCP - General 05/31/[address] [place] [address] Jeremy Gibbs MD MD Ophthalmology 12/10/14 Jose Monahan MD MD Ophthalmology 12/10/14 Lise Mcqueen MD Ophthalmology 05/31/[address] [place] [address] Jonh Garcia MD Assigned Surgical Provider 10/12/20 [address] [place] [address] documented as of this encounter
--- OUTSIDE RECORDS SUMMARY | 2022-06-13 21:39 | XMS_ITS | Encounter Summary ---
:1975 Author Organization [facility] Address [address] [place] [address]. [place] [address] Care Team Providers Name Role Phone Jeremy Gibbs MD Unavailable Jose Monahan MD Unavailable Lise Mcqueen MD Unavailable [phone] Mar Alfaro Primary Care Provider Encounter Details Date Type Department Care Team Description 07/21/2020 Telephone [facility] Durga Beltre, Eye [address] [facility] [address] [facility] 3[address] [place] [address] [place] [phone] Social History Tobacco Use Types Packs/Day Years Used Date Smoking Tobacco: Every Day Cigarettes 0.3 2 Smokeless Tobacco: Never Alcohol Use Standard Drinks/Week Comments Yes 0 (1 standard drink = 0.6 oz pure alcoho l) occasional Sex Assigned at Date Recorded Not on file documented as of this encounter Miscellaneous Notes Telephone Encounter - Pham Knox - 07/21/2020 11:11 AM CST Spoke to patient about visitor restrictions. -Pham Knox WELDER APPRENTICE documented in this encounter Plan of Treatment Not on filedocumented as of this encounter Visit Diagnoses Not on filedocumented in this encounter Care Teams Glazier Artist Relationship Specialty Start Date End Date Mar Alfaro PCP - General 05/31/17 [facility] [address] [place] [address] Jeremy Gibbs MD MD Ophthalmology 12/10/14 Jose Monahan MD MD Ophthalmology 12/10/14 Lise Mcqueen MD MD Ophthalmology 05/31/17 [address] [facility] [address] [place] [address] documented as of this encounter
--- OUTSIDE RECORDS SUMMARY | 2022-06-13 21:39 | XMS_ITS | Encounter Summary ---
:1975 Author Organization [facility] Address [address] [place] [address] Care Team Providers Name Role Phone Jeremy Gibbs MD Unavailable Jose Monahan MD Unavailable Lise Mcqueen MD Unavailable [phone] Mar Alfaro Primary Care Provider Jonh Garcia MD Unavailable Ta Lane OD Unavailable Reason for Visit Reason Onset Date Comments Patient Request 10/21/2020 Ptosis surgery Encounter Details Date Type Department Care Team Description 10/21/2020 Telephone [facility] Eye Jonh Garcia P atient Request (Ptosis Clinic - Dick SOLO surgery) [address] [place] [phone] Social History Tobacco Use Types Packs/Day [...] with No / Unsure 10/01/2020 1:25 PM NIGHT SHIFT SUPERVISOR someone who was confirmed or suspected to have Coronavirus / COVID-19? documented as of this encounter Miscellaneous Notes Telephone Encounter - Deborah Coto RN - 10/21/2020 3:[address] Fall will discuss with Dr. Garcia tomorrow and call patient back. Deborah Coto RN RN 3:37 PM 10/21/20 Telephone Encounter - Maggie Martinez - 10/21/2020 1:11 PM CDT [facility] Phone Message May a detailed message be left on voicemail: yes Reason for Call: Other: Pt is scheduled for Lt eye ptosis surgery on 11/12. She states she really feels like her Rt eye needs to be done as well. She lives an hour away and doesn't drive, so she would like to discuss possibly scheduling to have the Rt eye done as well. Please call Pt to discuss. Thank you. Action Taken: Message routed to: [facility] ([facility]): EYE Travel Screening: Not Applicable documented in this encounter Plan of Treatment Not on filedocumented as of this encounter Visit Diagnoses Not on filedocumented in this encounter Care Teams Economic Adviser Relationship Specialty Start Date End Date Mar Alfaro PCP - General 05/31/17 [facility] [address] [place] [address] Jeremy Gibbs MD MD Ophthalmology 12/10/14 Jose Monahan MD MD Ophthalmology 12/10/14 Lise Mcqueen MD Ophthalmology 05/31/17 [address] [facility] [address] [address] Jonh Garcia MD Assigned Surgical Provider 10/12/20 [address] [place], [place] [id number], OD Assigned Surgical Provider 01/02/[address] [place] [address] documented as of this encounter
--- OUTSIDE RECORDS SUMMARY | 2022-06-13 21:39 | XMS_ITS | Encounter Summary ---
:1975 Author Organization [facility] Address [address] [place] [address] Care Team Providers Name Role Phone Jeremy Gibbs MD Unavailable Jose Monahan MD Unavailable Lise Mcqueen MD Unavailable [phone] Mar Alfaro Primary Care Provider Jonh Garcia MD Unavailable Reason for Visit Reason Comments Patient/info Update Encounter Details Date Type Department Care Team Description 12/01/2020 Virtual Visit [facility] Eye Pipo Garcia [facility] - Dick Borja MD (Primary Dx) [address] [place] [phone] Social History Tobacco Use Types [...] been in contact with No / Unsure 11/12/2020 11:17 AM CDT someone who was confirmed or suspected to have Coronavirus / COVID-19? 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 HPI She is doing ok. Her left upper lid is healing up ok. Review of Systems Constitutional, HEENT, cardiovascular, pulmonary, gi and gu systems are negative, except as otherwise noted. Objective Vitals: No vitals were obtained today due to virtual visit. Physical Exam healthy, alert and no distress PSYCH: Alert and oriented times 3; coherent speech, normal rate and volume, able to articulate logical thoughts, able to abstract reason, no tangential thoughts, no hallucinations or delusions Her affect is normal RESP: No cough, no audible wheezing, able to talk in full sentences Remainder of exam unable to be completed due to telephone visits Phone call duration: 5 minutes PLAN: Return to clinic 6-8 weeks Attending Physician Attestation: I personally called this patient. Complete documentation of historical and exam elements from today's encounter can be found in the full encounter summary report (not reduplicated in this progress note). I personally obtained the chief complaint(s) and history of present illness. I confirmed and edited as necessary the review of systems, past medical/surgical history,family history, and social history. I formulated and edited as necessary the assessment and plan anddiscussed the findings and management plan with the patient and family. -Jonh Garcia MD documented in this encounter Plan of Treatment Not on filedocumented as of this encounter Visit Diagnoses Diagnosis Postoperative eye state - Primary Other states following surgery of eye an d adnexa documented in this encounter Care Teams Science Interpreter Relationship Specialty Start Date End Date Mar Alfaro PCP - General 05/31/17 [facility] [address] [place] [address] Jeremy Gibbs MD MD Ophthalmology 12/10/14 Jose Monahan MD MD Ophthalmology 12/10/14 Lise Mcqueen MD Ophthalmology 05/31/[address] [place], [place] [id number] Jonh Garcia MD Assigned Surgical Provider 10/12/20 [address] [place], [place] [phone] documented as of this encounter
--- OUTSIDE RECORDS SUMMARY | 2022-06-13 21:39 | XMS_ITS | Encounter Summary ---
:1975 Author Organization [facility] Address [address] [place] [address] Care Team Providers Name Role Phone Jeremy Gibbs MD Unavailable Jose Monahan MD Unavailable Lise Mcqueen MD Unavailable [phone] Mar Alfaro Primary Care Provider Encounter Details Date Type Department Care Team Description 10/19/2018 Travel Social History Tobacco Use Types Packs/Day [...] on filedocumented in this encounter Care Teams Shut Off Worker Relationship Specialty Start Date End Date Mar Alfaro PCP - General 05/31/17 [facility] [address] [place] [address] Jeremy Gibbs MD MD Ophthalmology 12/10/14 Jose Monahan MD MD Ophthalmology 12/10/14 Lise Mcqueen MD MD Ophthalmology 05/31/17 [address] [facility] [address] [place] [address] documented as of this encounter
--- OUTSIDE RECORDS SUMMARY | 2022-06-13 21:39 | XMS_ITS | Encounter Summary ---
:1975 Author Organization [place] Address [facility] [place] [address] Care Team Providers Name Role Phone Jeremy Gibbs MD Unavailable Jose Monahan MD Unavailable Lise Mcqueen MD Unavailable [phone] Mar Alfaro Primary Care Provider Lise Mcqueen MD Unavailable [phone] Reason for Visit Reason Comments Droopy Left Upper Lid Encounter Details Date Type Department Care Team Description 10/01/2020 Office Visit [facility] Jonh Garcia Ptosi s, left eyelid (Primary Dx); Clinic Peds Eye Left homonymous hemianopsia [address] [place] [address] [address] [place], [place] [phone] (Work) [phone] Social History Tobacco Use Types Packs/Day Years [...] with No / Unsure 10/01/2020 1:25 PM BIOMEDICAL ELECTRONICS TECHNICIAN someone who was confirmed or suspected to have Coronavirus / COVID-19? documented as of this encounter Patient Instructions Patient InstructionsJonh Garcia MD - 10/01/2020 1:00 PM CST Ptosis (Drooping Eyelids) Eyelid ptosis (pronounced naman-sis) is a condition in which the upper eyelid droops or sags. It canaffect one or both eyes. Sometimes the eyelid droops enough to obstruct the upper field of vision and/or side vision, requiring correction.??Ptosis Repair is a surgical procedure that can correct drooping eyelid(s). Depending upon the degree and cause, repair involves either resection (shortening) of a muscle in the eyelid or suspension with a muscle of the brow. Typically, the levator muscle (the major muscle responsible for elevating the upper eyelid) is shortened though an incision made along thenatural crease of the lid. Excess skin weighing down the eyelid may also be removed. Congenital Ptosis Present from , the most common cause of congenital ptosis is the improper development of the levator muscle. Children may need tilt their head back or lift their eyelid with a finger to see. They may also develop amblyopia (lazy eye), strabismus (eyes that are not properly aligned), astigmatism, or blurred vision. Repair for mild to moderate congenital ptosis is generally performed between ages 3 and 5. Severe visual obstruction may require earlier treatment. ??Repair is usually performed in an outpatient surgical facility under general anesthesia so the child will not become anxious or restless during the procedure. Acquired Ptosis Most commonly due to age-related weakening of the levator muscle, acquired ptosis may also be causedby injury, trauma, or procedures, such as cataract surgery, which can cause weak tendons to stretch.Acquired ptosis may also be the first sign of some diseases, such as myasthenia gravis (a disorder in which the muscles become weak), or Neil's syndrome (a neurological condition that indicates injury to part of the sympathetic nervous system).? Ptosis Repair is usually performed in an outpatient surgical facility under anesthesia that induces a twilight state. Sedated consciousness is preferred so that Dr. Garcia can accurately adjust the eyelids. Who Should Perform The Surgery? When choosing a surgeon to perform ptosis surgery, look for a cosmetic and reconstructive surgeon who specializes in the eyelids, orbit, and tear drain system. Dr. Garcia's membership in the [place] [employer] (ASOPRS) indicates he or she is not only aboard certified assistant press operator who knows the anatomy and structure of the eyelids and orbit, but also has had extensive training in ophthalmic plastic reconstructive and cosmetic surgery. EDICAL ELECTRONICS TECHNICIAN documented in this encounter Progress Notes Jonh Garcia MD - 10/01/2020 1:00 PM CST Chief Complaints and History of Present Illnesses Patient presents with ??? Droopy Left Upper Lid Chief Complaint(s) and History of Present Illness(es) Droopy Left Upper Lid In left upper lid. Comments H/o TBI. 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 Notes black line in vision (field cut). Prism gls have helped double vision. Dr. Mcqueen requests evaluation for CATIE ptosis. FUNCTIONAL COMPLAINTS RELATED TO DROOPY EYELIDS/BROWS: Key Peres describes upper lids interfering with superior visual field and interfering with activities of daily living including reading, driving and watching television. EXAM: MRD1: Right eye 4 Left eye 2 Left upper eyelid ptosis VISUAL FIELD: Right eye untaped:50 degrees Right eye taped:50 degrees Left eye untaped:15 degrees Left eye taped:50 degrees Right eye visual field improves by: 0 degrees Left eye visual field improves by: 35 degrees Assessment & Plan Key Peres is a 45 year old female with the following diagnoses: 1. Ptosis, left eyelid 2. Left homonymous hemianopsia Referral from Dr. Lise Mcqueen for left upper lid ptosis. History of TBI with resultant left visualfield deficit and left upper eyelid ptosis. Visually significant and obscures remaining visual field. Surgery would be beneficial. Good response to phenylephrine testing. PLAN: Left upper lid ptosis repair (MMCR 8.0mm) Lupillo Fall MD, MPH Oculoplastics Fellow Attending Physician Attestation: Complete documentation of historical [...] and management plan with the patient and family.I personally reviewed the ophthalmic test(s) associated with this encounter, agree with the interpretation(s) as documented by the resident/fellow, and have edited the corresponding report(s) as necessary. -Jonh Garcia MD Today with Key Peres, I reviewed the indications, risks, benefits, and alternatives of the proposed surgical procedure including, but not limited to, failure obtain the desired result and need for additional surgery, bleeding, infection, loss of vision, loss of the eye, and the remote possibility of permanent damage to any organ system or with the use of anesthesia. I provided multiple opportunities for the questions, answered all questions to the best of my ability, and confirmed that my answers and my discussion were understood. - Jonh Garcia MD 2:04 PM 10/01/2020 EDICAL ELECTRONICS TECHNICIAN documented in this encounter Nursing Notes Natalie Davidson [place] - 10/01/2020 1:00 PM CST Chief Complaint(s) and History of Present Illness(es) Droopy Left Upper Lid Laterality: left upper lid Comments H/o TBI. 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 Notes black line in vision (field cut). Prism gls have helped double vision. Dr. Mcqueen requests evaluation for CATIE ptosis. EDICAL ELECTRONICS TECHNICIAN documented in this encounter Plan of Treatment Not on filedocumented as of this encounter Procedures Procedure Name Priority Date/Time Associated Diagnosis Comme nts VISUAL FIELD PTOSIS Routine 10/01/2020 2:04 PM Ptosis, l eft eyelid Results for this OU (BOTH EYES) BIOMEDICAL ELECTRONICS TECHNICIAN Left homonymous procedure are in hemianopsia the results section. EXTERNAL PHOTOS OU Routine 10/01/2020 2:04 PM Ptosis, le ft eyelid Results for this (BOTH EYES) BIOMEDICAL ELECTRONICS TECHNICIAN Left homonymous procedure ar e in hemianopsia the results section. OPHTHALMIC IMAGING - 10/01/2020 12:00 HIM SCAN AM BIOMEDICAL ELECTRONICS TECHNICIAN documented in this encounter Results Hdez VF Ptosis OU (10/01/2020 2:04 PM BIOMEDICAL ELECTRONICS TECHNICIAN) Jonh Velez MD - 10/01/2020 2:04 P M BIOMEDICAL ELECTRONICS TECHNICIAN Performed by: Patricia . Patient cooperation: Reliable . Reliability of the test: Good . Start time: 1:29 PM . Right Eye Test Findings: Normal . Interpretation: Normal . Interval: Initial . Plan: Monitor . Left Eye Difference between Hdez visual field results of lids taped and untaped: 30 . Test Findings: Abnormal . Interpretation: Decreased superior vis ual field . Interval: Initial . Plan: Surgery . Jonh Garcia MD OPHTHALMOLOGY External Photos OU (both eyes) (10/01/2020 2:04 PM BIOMEDICAL ELECTRONICS TECHNICIAN) Jonh Velez MD - 10/01/2020 2:04 P M BIOMEDICAL ELECTRONICS TECHNICIAN Performed by: reji . Patient cooperation: Reliable . Right Eye Reliability of the test: Good . Left Eye Reliability of the test: Good . Notes Consistent with exam. Results documented under Exam and A&P. ?? Jonh Garcia MD OPHTHALMOLOGY OPHTHALMIC IMAGING - HIM SCAN (10/01/2020 12:00 AM BIOMEDICAL ELECTRONICS TECHNICIAN) Specimen (Source) Anatomical Location Collection Method / Collectio n Time Received Time / Laterality Volume 10/01/2020 Narrative This result has an attachment that is no t available. Provider Scan PROCEDURES documented in this encounter Visit Diagnoses Diagnosis Ptosis, left eyelid - Primary Unspecified ptosis of eyelid Left homonymous hemianopsia Homonymous bilateral field defects in vi sual field documented in this encounter Care Teams Project Manager Entertainment And Media Relationship Specialty Start Date End Date Mar Alfaro PCP - General 05/31/17 [facility] [address] [place] [address] Jeremy Gibbs MD MD Ophthalmology 12/10/14 Jose Monahan MD MD Ophthalmology 12/10/14 Lise Mcqueen, Ophthalmology 05/31/17 [address] [facility] [address] [address] Lise Mcqueen, Assigned Surgical Provider [address] [facility] [address] [address] documented as of this encounter
--- OUTSIDE RECORDS SUMMARY | 2022-06-13 21:39 | XMS_ITS | Encounter Summary ---
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 Time Location / / Volume Laterality Urine 11/12/2020 12:00 PM CDT Anupam Schwartz MD LAB - ENTER/EDIT POCT documented in this encounter Visit Diagnoses Diagnosis Ptosis, left eyelid - Primary Unspecified ptosis of eyelid Ptosis, left eyelid Unspecified ptosis of eyelid documented in this encounter Admitting Diagnoses Diagnosis Ptosis, left eyelid Unspecified ptosis of eyelid documented in this encounter Administered Medications Inactive Administered Medications - up to 3 most recent administrations Medication Order MAR Action Action Date Dose Rate Site oxyCODONE (ROXICODONE) tablet 5 mg Given 11/12/2020 2:52 PM CDT 5 mg 5 mg, Oral, EVERY 4 HOURS PRN, moderate to severe pain, Starting on Tue11/12/20 at 1448, Max: 5 mg for opioid-na??ve patient., Post-procedure documented in this encounter Care Teams Diesel Mechanic Relationship Specialty Start Date End Date Mar Alfaro PCP - General 05/31/17 [facility] [address] [place] [address] Jeremy Gibbs MD MD Ophthalmology 12/10/14 Jose Monahan MD MD Ophthalmology 12/10/14 Lise Mcqueen MD Ophthalmology 05/31/[address] [id number] Chay Arce MD Assigned Surgical Provider 10/12/[address] [place] [id number] documented as of this encounter
--- OUTSIDE RECORDS SUMMARY | 2022-06-13 21:39 | XMS_ITS | Encounter Summary ---
:1975 Author Organization [facility] Address [address] [place] [address]. [place] [address] Care Team Providers Name Role Phone Jeremy Gibbs MD Unavailable Jose Monahan MD Unavailable Lise Mcqueen MD Unavailable [phone] Mar Alfaro Primary Care Provider Lise Mcqueen MD Unavailable [phone] Jonh Garcia MD Unavailable Encounter Details Date Type Department Care Team Description 08/14/2020 Medical Correspondence [employer] Scan, LAB AND IMAGING Health Info Mgmt Non-Provider OUTPATIENT ORDER Srvcs FORM OUTSIDE [address] [place] [id number] Social History Tobacco Use Types Packs/Day Years [...] on filedocumented in this encounter Care Teams Aging Room Hand Relationship Specialty Start Date End Date Mar Alfaro PCP - General 05/31/17 [facility] [address] [place] [address] Jeremy Gibbs MD MD Ophthalmology 12/10/14 Jose Monahan MD MD Ophthalmology 12/10/14 Lise Mcqueen MD Ophthalmology 05/31/[address] [place], [place] [address] [address] [address] Lise Mcqueen, Assigned Surgical Provider 10/11/[address] [place], [place] [address] [address] [address] Jonh Garcia MD Assigned Surgical Provider 10/12/20 [address] [place] [address] documented as of this encounter
--- OUTSIDE RECORDS SUMMARY | 2022-06-13 21:39 | XMS_ITS | Encounter Summary ---
:1975 Author Organization [place] Address [address] [place] [address] Care Team Providers Name Role Phone Jeremy Gibbs MD Unavailable Jose Monahan MD Unavailable Lise Mcqueen MD Unavailable [phone] Mar Alfaro Primary Care Provider Jonh Garcia MD Unavailable Encounter Details Date Type Department Care Team Description 12/23/2021 Travel Social History Tobacco Use Types Packs/Day [...] Exposure Response Date Recorded In the last 10 days, have you been in contact with No / Unsu re 12/23/2021 12:26 PM CDT someone who was confirmed or suspected to have Coronavirus/COVID-19? documented as of this encounter Plan of Treatment Not on filedocumented as of this encounter Visit Diagnoses Not on filedocumented in this encounter Care Teams Mineral Surveyor Relationship Specialty Start Date End Date Mar Alfaro PCP - General 05/31/17 [facility] [address] [place] [address] Jeremy Gibbs MD MD Ophthalmology 12/10/14 Jose Monahan MD MD Ophthalmology 12/10/14 Lise Mcqueen MD Ophthalmology 05/31/[address] [place] [address] Jonh Garcia MD Assigned Surgical Provider 10/12/20 [address] [place] [address] documented as of this encounter
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
--- OUTSIDE RECORDS SUMMARY | 2022-06-13 21:39 | XMS_ITS | Encounter Summary ---
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 documented as of this encounter Progress Notes Ta Lane OD - 12/23/2021 1:00 PM CDT Assessment/Plan (H53.2) Diplopia (primary encounter diagnosis) Comment: Overall adequately managed for distance with current prisms Plan: Discussed findings with patient. Recommend continuing with current glasses for distance vision. New Rx for near with small add and less base out should improve near vision a little. Advised patient that one pair of glasses will not likely be feasible for time clock repairer wear given difference in eye posturing at different distances. 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 Patient expressed some interest in Peli prisms but was advised that the nature of her vision loss is unlikely to improve with these prisms. Continue to monitor regularly. 45 minutes were spent on the date [...] Lane OD documented in this encounter Nursing Notes Tammie Snow - 12/23/2021 1:00 PM CDT Chief Complaints and History of Present Illnesses Patient presents with ??? Follow Up Chief Complaint(s) and History of Present Illness(es) Follow Up Laterality: both eyes Comments Patient states some improvement since getting prism in glasses, but not perfect. Patient states no pain, but dryness each eye. 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
--- OUTSIDE RECORDS SUMMARY | 2022-06-13 21:39 | XMS_ITS | Encounter Summary ---
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 documented as of this encounter Plan of Treatment Not on filedocumented as of this encounter Visit Diagnoses Not on filedocumented in this encounter Care Teams Broomcorn Scraper Relationship Specialty Start Date End Date Mar Alfaro PCP - General 05/31/17 [facility] [address] [place] [address] Jeremy Gibbs MD MD Ophthalmology 12/10/14 Jose Monahan MD MD Ophthalmology 12/10/14 Lise Mcqueen MD MD Ophthalmology 05/31/17 [address] [facility] [address] [address] documented as of this encounter
--- OUTSIDE RECORDS SUMMARY | 2022-06-13 21:39 | XMS_ITS | Encounter Summary ---
:1975 Author Organization [place] Address [address] [place] [address] Care Team Providers Name Role Phone Jeremy Gibbs MD Unavailable Jose Monahan MD Unavailable Lise Mcqueen MD Unavailable [phone] Mar Alfaro Primary Care Provider Jonh Garcia MD Unavailable Encounter Details Date Type Department Care Team Description 11/12/2020 Travel Social History Tobacco Use Types Packs/Day [...] on filedocumented in this encounter Care Teams Ferry Pilot Relationship Specialty Start Date End Date Mar Alfaro PCP - General 05/31/17 [facility] [address] [place] [address] Jeremy Gibbs MD MD Ophthalmology 12/10/14 Jose Monahan MD MD Ophthalmology 12/10/14 Lise Mcqueen MD Ophthalmology 05/31/[address] [place] [address] Jonh Garcia MD Assigned Surgical Provider 10/12/20 [address] [place] [address] documented as of this encounter
--- OUTSIDE RECORDS SUMMARY | 2022-06-13 21:39 | XMS_ITS | Encounter Summary ---
:1975 Author Organization [facility] Address [address] [place] [address]. [place] [address] Care Team Providers Name Role Phone Jeremy Gibbs MD Unavailable Jose Monahan MD Unavailable Lise Mcqueen MD Unavailable [phone] Mar Alfaro Primary Care Provider Reason for Visit Reason Onset Date Comments Appointment 11/26/2019 Encounter Details Date Type Department Care Team Description 11/26/2019 Telephone [facility] Durga Beltre, Appointment Eye [address] [place] [address] [place] [facility] 3[address] [place] [address] [place] [phone] Social History Tobacco Use Types Packs/Day Years Used Date Smoking Tobacco: Every Day Cigarettes 0.3 2 Smokeless Tobacco: Never Alcohol Use Standard Drinks/Week Comments Yes 0 (1 standard drink = 0.6 oz pure alcoho l) occasional Sex Assigned at Date Recorded Not on file documented as of this encounter Miscellaneous Notes Telephone Encounter - Mariah Biggs COA - 11/26/2019 5:08 PM CDT I spoke to the patient who notes she has an upcoming apponitment in December. She would like to keep thatappointment if possible. I told her we would call her if we need to change it. Message sent to the pedatric/strabistmus team documented in this encounter Plan of Treatment Not on filedocumented as of this encounter Visit Diagnoses Not on filedocumented in this encounter Care Teams Chronic Care Nurse Relationship Specialty Start Date End Date Mar Alfaro PCP - General 05/31/17 [facility] [address] [place] [address] Jreemy Gibbs MD MD Ophthalmology 12/10/14 Jose Monahan MD MD Ophthalmology 12/10/14 Lise Mcqueen MD MD Ophthalmology 05/31/[address] [place] [address] documented as of this encounter
--- OUTSIDE RECORDS SUMMARY | 2022-06-13 21:39 | XMS_ITS | Encounter Summary ---
:1975 Author Organization [place] Address [address] [place] [address] Care Team Providers Name Role Phone Jeremy Gibbs MD Unavailable Jose Monahan MD Unavailable Lise Mcqueen MD Unavailable [phone] Mar Alfaro Primary Care Provider Jonh Garcia MD Unavailable Encounter Details Date Type Department Care Team Description 09/28/2021 Travel Social History Tobacco Use Types Packs/Day [...] last month, have you been in contact Unable to assess 09/28/2021 1:[address] MESSENGER with someone who was confirmed or suspected to have Coronavirus / COVID-19? documented as of this encounter Plan of Treatment Not on filedocumented as of this encounter Visit Diagnoses Not on filedocumented in this encounter Care Teams Superintendent Nonselling Relationship Specialty Start Date End Date Mar Alfaro PCP - General 05/31/17 [facility] [address] [place] [address] Jeremy Gibbs MD MD Ophthalmology 12/10/14 Jose Monahan MD MD Ophthalmology 12/10/14 Lise Mcqueen MD Ophthalmology 05/31/[address] [place] [address] Jonh Garcia MD Assigned Surgical Provider 10/12/20 [address] [place] [address] documented as of this encounter
--- OUTSIDE RECORDS SUMMARY | 2022-06-13 21:39 | XMS_ITS | Encounter Summary ---
:1975 Author Organization [place] Address [address] [place] [address]. [place] [address] Care Team Providers Name Role Phone Jeremy Gibbs MD Unavailable Jose Monahan MD Unavailable Lise Mcqueen MD Unavailable [phone] Mar Alfaro Primary Care Provider Jonh Garcia MD Unavailable Reason for Visit Reason Onset Date Comments Previsit 11/10/2020 Encounter Details Date Type Department Care Team Description 11/10/2020 PRE VISIT [facility] Maliha Casillas, VIOLET Previsit Preoperative Assessment [address] [place] [address] [phone] Social History Tobacco Use Types Packs/Day Years [...] this encounter Miscellaneous Notes Telephone Encounter - Oma Ureña - 11/07/2020 9:58 AM CDT FUTURE VISIT INFORMATION SURGERY INFORMATION: ?? Date: 11.12.20 ?? Location: [facility] OR ?? Surgeon: Dr. Garcia ?? Anesthesia Type: combined MAC with local ?? Procedure: left upper eyelid ptosis repair ?? Consult: 2.24.21 RECORDS REQUESTED FROM: Primary Care Provider: Dr. Alfaro documented in this encounter Plan of Treatment Not on filedocumented as of this encounter Visit Diagnoses Not on filedocumented in this encounter Care Teams Animal Husbandry Manager Relationship Specialty Start Date End Date Mar Alfaro PCP - General 05/31/17 [facility] [address] [place] [address] Jeremy Gibbs MD MD Ophthalmology 12/10/14 Jose Monahan MD MD Ophthalmology 12/10/14 Lise Mcqueen MD Ophthalmology 05/31/[address] [address] Jonh Garcia MD Assigned Surgical Provider 10/12/20 [address] [place] [address] documented as of this encounter
--- OUTSIDE RECORDS SUMMARY | 2022-06-13 21:39 | XMS_ITS | Encounter Summary ---
:1975 Author Organization [place] Address [address] [place] [address]. [place] [address] Care Team Providers Name Role Phone Jeremy Gibbs MD Unavailable Jose Monahan MD Unavailable Lise Mcqueen MD Unavailable [phone] Mar Alfaro Primary Care Provider Jonh Garcia MD Unavailable Encounter Details Date Type Department Care Team Description 10/24/2020 Telephone [facility] Eye Mirta Fall MD Clinic - [facility] [employer] [place] [address] 5-4800 [phone] Social History Tobacco Use Types Packs/Day Years [...] with No / Unsure 10/01/2020 1:25 PM INVESTMENT DIRECTOR someone who was confirmed or suspected to have Coronavirus / COVID-19? documented as of this encounter Miscellaneous Notes Telephone Encounter - Lupillo Fall MD - 10/24/2020 10:48 AM CDT Left voicemail regarding questions about adding right upper eyelid ptosis repair to scheduled surgery. Informed that insurance unlikely to cover, left VM to call back with how she would like to proceed. documented in this encounter Plan of Treatment Not on filedocumented as of this encounter Visit Diagnoses Not on filedocumented in this encounter Care Teams Cloth Hauler Relationship Specialty Start Date End Date Mar Alfaro PCP - General 05/31/17 [facility] [address] [place] [address] Jeremy Gibbs MD MD Ophthalmology 12/10/14 Jose Monahan MD MD Ophthalmology 12/10/14 Lise Mcqueen MD Ophthalmology 05/31/[address] [place] [address] Jonh Garcia MD Assigned Surgical Provider 10/12/20 [address] [place] [address] documented as of this encounter
--- OUTSIDE RECORDS SUMMARY | 2022-06-13 21:39 | XMS_ITS | Encounter Summary ---
:1975 Author Organization [place] Address [address] [place] [address]. [place] [address] Care Team Providers Name Role Phone Jeremy Gibbs MD Unavailable Jose Monahan MD Unavailable Lise Mcqueen MD Unavailable Mar Alfaro Primary Care Provider Jonh Garcia MD Unavailable Encounter Details Date Type Department Care Team Description 11/06/2020 Medical Correspondence [facility] Scan, LAB AND IMAGING Health Info Mgmt Non-Provider OUTPATIENT ORDER Srvcs FORM [address] [place] [address] [facility] [phone] Social History Tobacco Use Types Packs/Day Years [...] on filedocumented in this encounter Care Teams Business Excellence Manager Relationship Specialty Start Date End Date Mar Alfaro PCP - General 05/31/17 [facility] [address] [place] [address] Jeremy Gibbs MD MD Ophthalmology 12/10/14 Jose Monahan MD MD Ophthalmology 12/10/14 Lise Mcqueen MD Ophthalmology 05/31/[address] [address] Jonh Garcia MD Assigned Surgical Provider 10/12/20 [address] [place] [address] documented as of this encounter
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
--- OUTSIDE RECORDS SUMMARY | 2022-06-13 21:39 | XMS_ITS | Encounter Summary ---
:1975 Author Organization [place] Address [address] [place] [address] Care Team Providers Name Role Phone Jeremy Gibbs MD Unavailable Jose Monahan MD Unavailable Lise Mcqueen MD Unavailable [phone] Mar Alfaro Primary Care Provider Lise Mcqueen MD Unavailable [phone] Reason for Visit Reason Onset Date Comments Glasses 10/07/2020 Rx for glasses Encounter Details Date Type Department Care Team Description 10/07/2020 Telephone [facility] Eye Jonh Garcia G lasses (Rx for Clinic - Dick SOLO glasses) [address] [place] [phone] Social History Tobacco Use Types [...] with No / Unsure 10/01/2020 1:25 PM CUSTOM TAILOR APPRENTICE someone who was confirmed or suspected to have Coronavirus / COVID-19? documented as of this encounter Miscellaneous Notes Telephone Encounter - Maggie Martinez - 10/07/2020 9:55 AM CST Last Rx faxed per request at 1240 Jon Branch RN 12:48 PM 10/07/20 Health Call Center Phone Message May a detailed message be left on voicemail: yes Reason for Call: Other: Pt misplaced her glasses Rx and would like us to fax it to [facility] in [place]. . She doesn't have the ability to print it from her MyChart. Thank you. Action Taken: Message routed to: [facility] EYE Travel Screening: Not Applicable OM TAILOR APPRENTICE documented in this encounter Plan of Treatment Not on filedocumented as of this encounter Visit Diagnoses Not on filedocumented in this encounter Care Teams Warehouse Receiver Relationship Specialty Start Date End Date Mar Alfaro PCP - General 05/31/17 [facility] [address] [place] [address] Jeremy Gibbs MD MD Ophthalmology 12/10/14 oJse Monahan MD MD Ophthalmology 12/10/14 Lise Mcqueen MD Ophthalmology 05/31/17 [address] [facility] [address] [place] [id number] Lise Mcqueen, Assigned Surgical Provider 10/11/[address] [facility] [address] [address] [place] [id number] documented as of this encounter
--- OUTSIDE RECORDS SUMMARY | 2022-06-13 21:39 | XMS_ITS | Encounter Summary ---
:1975 Author Organization [place] Address [address] [place] [address]. [place] [address] Care Team Providers Name Role Phone Jeremy Gibbs MD Unavailable Jose Monahan MD Unavailable Lise Mcqueen MD Unavailable [phone] Mar Alfaro Primary Care Provider Jonh Garcia MD Unavailable Encounter Details Date Type Department Care Team Description 11/13/2020 Telephone [facility] Leonora Javier MD - [id number] [place] [address] [place] [address] [place] [address] [phone] Social History Tobacco Use Types Packs/Day Years [...] this encounter Miscellaneous Notes Telephone Encounter - Leonora Dahl MD - 11/13/2020 2:50 PM CDT Postop day 1 Telephone call to Key Peres, s/p left upper eyelid ptosis repair. Doing well with minimal, improving pain, stable vision, and without bleeding. All questions were answered, she is doing well, and postoperative care was reviewed. A postop appointment has been scheduled. Leonora Dahl MD Ophthalmology Resident, PGY-2 [facility] documented in this encounter Plan of Treatment Not on filedocumented as of this encounter Visit Diagnoses Not on filedocumented in this encounter Care Teams Electrical Tryout Person Relationship Specialty Start Date End Date Mar Alfaro PCP - General 05/31/17 [facility] [address] [place] [address] Jeremy Gibbs MD MD Ophthalmology 12/10/14 Jose Monahan MD MD Ophthalmology 12/10/14 Lise Mcqueen MD Ophthalmology 05/31/17 [address] [facility] [address] [address] Jonh Garcia MD Assigned Surgical Provider 10/12/20 [address] [place] [address] documented as of this encounter
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
--- OUTSIDE RECORDS SUMMARY | 2022-06-13 21:39 | XMS_ITS | Encounter Summary ---
:1975 Author Organization [place] Address [address] [place] [address] Care Team Providers Name Role Phone Jeremy Gibbs MD Unavailable Jose Monahan MD Unavailable Lise Mcqueen MD Unavailable [phone] Mar Alfaro Primary Care Provider Jonh Garcia MD Unavailable Reason for Visit Reason Onset Date Comments Appointment 12/04/2020 Post-OP IN-CLINIC Encounter Details Date Type Department Care Team Description 12/04/2020 Telephone [facility] Eye Jonh Garcia A ppointment (Post-OP Clinic - Dick SOLO IN-CLINIC) [address] [place] [address] [id number] [phone] Social History Tobacco Use Types Packs/Day [...] encounter Miscellaneous Notes Telephone Encounter - Maggie Chowdhury - 12/04/2020 3:17 PM CDT LVM for patient regarding scheduling a Return in about 6 weeks (around 01/12/2021) for [facility]. Provided direct number and Eye Clinic for scheduling a Post-Op appointment. documented in this encounter Plan of Treatment Not on filedocumented as of this encounter Visit Diagnoses Not on filedocumented in this encounter Care Teams Aesthetician Relationship Specialty Start Date End Date Mar Alfaro PCP - General 05/31/17 [facility] [address] [place] [address] Jeremy Gibbs MD MD Ophthalmology 12/10/14 Jose Monahan MD MD Ophthalmology 12/10/14 Lise Mcqueen MD Ophthalmology 05/31/[address] [place] [address] Jonh Garcia MD Assigned Surgical Provider 10/12/20 [address] [place] [address] documented as of this encounter
--- OUTSIDE RECORDS SUMMARY | 2022-06-13 21:39 | XMS_ITS | Encounter Summary ---
:1975 Author Organization [place] Address [address] [place] [address] Care Team Providers Name Role Phone Jeremy Gibbs MD Unavailable Jose Monahan MD Unavailable Lise Mcqueen MD Unavailable [phone] Mar Alfaro Primary Care Provider Jonh Garcia MD Unavailable Ta Lane OD Unavailable Encounter Details Date Type Department Care Team Description 11/05/2020 External Order [facility] Outside, Provider Results Transplant Clinic [address] [place] [address] Social History Tobacco Use Types Packs/Day [...] Name Priority Date/Time Associated Diagnosis Comme nts COVID-19 VIRUS Routine 11/05/2020 3:40 PM Results for this (CORONAVIRUS) BY CDT procedure a re in PCR (EXTERNAL the results RESULT) section. documented in this encounter Results COVID-19 Virus (Coronavirus) by PCR (External Result) (11/05/2020 3:40 PM CDT) P athologist Signature COVID-19 Virus Negative Negative COVID-19 by PCR EXTERNAL (External RESULTS Result) Specimen (Source) Anatomical Collection Method Collection Time Re ceived Time Location / / Volume Laterality 11/05/2020 3:40 PM CDT Narrative [facility] - 11/14/2020 8:18 PM CDT Verified by Edith Benitez on 11/14/2020. Testing performed by [facility] [address] [facility] [address] Patient Reported LABORATORY Performing Organization Address City/State/ZIP Code Phon e Number [facility]FT COVID-19 EXTERNAL COVID-19 [place] [address], [facility] [place] RESULTS Result Scanned into Patient Record by [employer] Refer to Result Comment/Narrative for exact performing laboratory documented in this encounter Visit Diagnoses Not on filedocumented in this encounter Care Teams Nurse Obgyn Relationship Specialty Start Date End Date Mar Alfaro PCP - General 05/31/17 [facility] [address] [place] [address] Jeremy Gibbs MD MD Ophthalmology 12/10/14 Jose Monahan MD MD Ophthalmology 12/10/14 Lise Mcqueen MD Ophthalmology 05/31/[address] [place] [address] [phone] Jonh Garcia MD Assigned Surgical Provider 10/12/[address] [place] [phone] OD Assigned Surgical Provider 01/02/[address] [place] [address] [id number] documented as of this encounter
--- OUTSIDE RECORDS SUMMARY | 2022-06-13 21:40 | XMS_ITS | Encounter Summary ---
:1975 Author Organization [place] Address [address] [place] [address]. [place] [address] Care Team Providers Name Role Phone Teresa Vaughan Lyla Primary Care Provider Reason for Visit Auth/Cert - Closed Specialty Diagnoses / Procedures Referred By Contact Refer red To Contact Surgery Diagnoses Strabismus Ur Periop Procedures RECESSION RESECTION (REPAIR STRABISMUS) BILATERAL [address] [place] [address] Phone: Fax: Referral ID Status Reason Start Date Expiration Date Visits Requ ested Visits Authorized [id number] Closed 1 1 Encounter Details Date Type Department Care Team Description 11/26/2014 Surgery [facility] Montana Meyer, Brittany trabismus Repair Right PeriOp Services MD Eye [address] [place] [phone] [address] [facility] [phone] [place] [address] Surgery Details Date/Time Status Location OR Service Patient Case Case Traum a Class Class Type Case? 11/26/14 10:55 Posted UR OR UR OR Ophthalmology Same Day AM 04 Surgery Panel 1 Procedure [facility]RB Anes Op Region Wound Class Commen ts Strabismus Repair Right Right General Eye I-Clean S trabismus Repair Right Eye Eye Surgeon Surgeon Role Service Panel Montana Meyer MD Primary Ophthalmology 1 Faizan Bey MD Resident - Assisting 1 documented in this encounter Social History [...] Sign Reading Time Taken Comments Blood Pressure 130/83 11/26/2014 11:50 AM CDT Pulse - - Temperature 36.6 ??C (97.9 ??F) 11/26/2014 11:50 AM CDT Respiratory Rate 14 11/26/2014 11:50 AM CDT Oxygen Saturation 100% 11/26/2014 11:50 AM CDT Inhaled Oxygen Concentration - - Weight 75.7 kg (166 lb 14.2 oz) 11/26/2014 9:00 AM CDT Height 157.5 cm (5' 2) 11/26/2014 9:00 AM CDT Body Mass Index 30.52 11/26/2014 9:00 AM CDT documented in this encounter Discharge Instructions Discharge InstructionsSchAbby campuzano RN - 11/26/2014 1:37 PM CDT Please feel free to resume routine activities, including school and work, as symptoms allow. Although lifting is not restricted for household tasks, heavy lifting should be minimized for the first week. Bathing can be performed as normal with caution to avoid excessive water in the eyes. Bloody discharge and bloody eye surface is normal. Vision can be mildly and variably blurred due to the tearing and oinment. Return for follow-up with Dr. Meyer as scheduled. If you do not have an appointment already, pleasecall Binh Patrick at or our table and desk finisher at and arrange to follow-up. Please call [phone] For postop eye concerns including discharge, eye movement abnormality, or eyelid swelling and redness. Please consider taking a photo of the patient's eye appearance and offer to text the photo into the call service for review. If Key Peres experiences systemic symptoms including fever, decreased alertness or activity, or decreased oral intake, please call your primary care physician or call the same number (for the Ophthalmology Resident or Fellow On- Call) or emergency room immediately. Same-Day Surgery Adult Discharge Orders & Instructions For 24 hours after surgery: 1. Get plenty of rest. A responsible adult must stay with you for at least 24 hours after you leave the hospital. 2. Pain medication can slow your reflexes. Do not drive or use heavy equipment. If you have weaknessor tingling, don't drive or use heavy equipment until this feeling goes away. 3. Mixing alcohol and pain medication can cause dizziness and slow your breathing. It can even be fatal. Do not drink alcohol while taking pain medication. 4. Avoid strenuous or risky activities. Ask for help when climbing stairs. 5. You may feel lightheaded. If so, sit for a few minutes before standing. Have someone help you getup. 6. If you have nausea (feel sick to your stomach), drink only clear liquids such as apple juice, emiliano fredi, broth or 7-Up. Rest may also help. Be sure to drink enough fluids. Move to a regular diet asyou feel able. Take pain medications with a small amount of solid food, such as toast or crackers, to avoid nausea. 7. A slight fever is normal. Call the doctor if your fever is over 100??F (37.7??C) (taken under thetongue) or lasts longer than 24 hours. 8. You may have a dry mouth, muscle aches, trouble sleeping or a sore throat. These symptoms should go away after 24 hours. 9. Do not make important or legal decisions. Pain Management: 1. Take pain medication (if prescribed) for pain as directed by your physician. 2. WARNING: If the pain medication you have been prescribed contains Tylenol (acetaminophen), DO NOT take additional doses of Tylenol (acetaminophen). Call your doctor for any of the followin. Signs of infection (fever, growing tenderness at the surgery site, severe pain, a large amount ofdrainage or bleeding, foul-smelling drainage, redness, swelling). 2. It has been over 8 to 10 hours since surgery and you are still not able to urinate (pass water). 3. Headache for over 24 hours. 4. Numbness, tingling or weakness the day after surgery (if you had spinal anesthesia). To contact a doctor, call or: ??? [phone] and ask for the Resident [employer] for: (answered 24 hours a day) ??? Emergency Department: [facility]: [phone] [place] [facility] Department: [phone] [facility] Emergency Department: [phone] Rev. 05/2014 Dr John Meyer, Dr. Lise Mcqueen, Dr. Uzair Urbina Strabismus Repair Discharge Instructions Your eye doctor performed surgery to help align your eye(s). During surgery, certain eye muscles areadjusted. This helps the muscles better control how the eye moves. Often, surgery is done in addition to other treatments. How Surgery Works Strabismus surgery is a safe, common operation. The doctor changes the placement or length of an eyemuscle. This small change can pull the eye into proper alignment. The two most common methods of surgery are: ??? Recession, in which a muscle is moved to a new position on the eye. ??? Resection, in which a small section of an eye muscle is removed. What to Expect It is normal to experience the following: ??? Eye Redness. This will resolve slowly over 2- 4 weeks. ??? [place] tinged tears ??? Swollen, painful or itchy eyes ??? Sensitivity to bright lights. ??? Trouble opening eyes for 1-2 days. ??? Feeling dizzy or off balance until you get used to seeing differently. After Surgery Care ??? Avoid rubbing your eyes. o You may use cool cloths to help with pain and/or itching. ??? Minimize direct contact with water for 1 week. Showering or bathing is allowed. o You may use a warm, wet washcloth to remove any dried drainage from the eye. Wipe eye from inner corner to the outer corner of the eye. ??? No swimming for 1 week. ??? Use sunglasses or a hat to protect eyes from bright lights if you are light sensitive. ??? You may wear glasses as soon as needed. ??? No heavy lifting or contact sports for 1 week. ??? Use eye drops or eye ointment as directed to prevent infection and decrease swelling. Avoid touching surface of eye with the tube or bottle. Suture Care Sutures will dissolve over several weeks; they will not need to be removed. Adjustable sutures may have been placed during surgery. You may need to stay in the recovery room for a longer period after surgery before a possible suture adjustment is performed. Once the suture is adjusted you will be sent home. When to Call the Doctor ??? Eyelids are progressively getting more swollen and painful after 24 hours. ??? You see a dramatic change in the position of the eye over time. ??? Frequent or continuous vomiting. ??? Green or yellow drainage from the eye. ??? Temperature over 101 degrees. If your child experiences worsening RSVP (Redness, Sensitivity to light, Vision, Pain), or develops fever or worsening discharge, call EITHER ?? (8am-4:30pm Tuesday-Tuesday) ?? (after hours & weekends) and ask to speak with the Ophthalmology Resident or Fellow On-Call or return to the eye clinic or emergency room immediately. If your child is unable to tolerate food and drink, vomits 3 times, or appears to have decreased alertness or lethargy, return to the emergency room immediately. These can be signs of delayed gastrointestinal wake-up after anesthesia and your child may need IV fluids to prevent dehydration. Follow Up Follow up with your doctor as directed Rev. 10/2013 documented in this encounter Medications at Time of Discharge Medication Sig Dispensed Refills Start Date End Date CLONAZEPAM PO Take 0.5 mg by 0 mouth 2 times daily as needed for anxiety (or sleep) fjeioynp-zhydxhemt-wqmicfv Place 1 drop into 1 mL 0 12/01/2014 hasone (MAXITROL) the right eye 4 3.5-04121-6.1 times daily for 5 SUSPIndications: days Postoperative eye state erythromycin with ethanol Apply topically 0 08/04/2017 (EMGEL) 2 % gel daily as needed Apply thin layer on face M-W-F HYDROcodone-acetaminophen Take 1 tablet by 12 tablet 0 11/0708/04/2017 (NORCO) 5-325 MG per mouth every 6 hours tabletIndications: as needed for Postoperative eye state moderate to severe pain Methylphenidate HCl Take 20 mg by mouth 0 08/04/2017 (RITALIN PO) 2 times daily METOPROLOL TARTRATE PO Take 50 mg by mouth 0 08/04/2017 2 times daily Mirtazapine (REMERON PO) Take 15 mg by mouth 0 08/04/2017 daily Multiple Vitamins-Minerals 0 08/04/2017 (MULTIVITAMIN OR) nicotine (NICODERM CQ) 21 Place 1 patch onto 0 08/10/2017 MG/24HR patch 2h hr the skin every 24 hours Ondansetron HCl (ZOFRAN Take 1 tablet by 0 08/04/2017 PO) mouth daily as needed documented as of this encounter Miscellaneous Notes Op Note - Montana Meyer MD - 11/26/2014 2:53 PM CDT OPHTHALMOLOGY OPERATIVE REPORT PREOPERATIVE DIAGNOSIS: 1. Right hypertropia 2. History of traumatic brain injury 3. 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 S/P bilateral medial rectus recession and left superior rectus advancement POSTOPERATIVE DIAGNOSIS: Same as preoperative diagnosis PROCEDURE: 1. Forced duction testing both eyes 2. Exploration and lysis of adhesions of the right superior rectus 3. Right superior rectus recession 4.0 mm SURGEON: Montana Meyer MD HORSE BUYER: Chanel Grant MD IMPLANTS: None COMPLICATIONS: None ESTIMATED BLOOD LOSS: less than 1 mL IV FLUIDS: Per Anesthesia DETAILS OF THE PROCEDURE: On the day of surgery, IMontana MD, met the patient, Key Peres, in the preoperative holding area with her family. I identified the patient and operative sites and marked them on the preoperative marking sheet. The indications, risks, benefits, and alternatives for the planned procedure were again discussed with the family. I answered their questions, and they agreed to proceed. The patient was then transported to the operating room where she was placed under general anesthesiaby the anesthesiologist. The bed was turned 90 degrees. I participated in a preoperative briefing and time-out and personally identified the patient, surgical plan, and operative site(s). The eyes were prepped and draped in the typical manner for strabismus surgery. Forced duction showedno meaningful restriction in either eye. The right fornix was full as if the transposition affected the course of muscles and bunched them up. Attention was turned to the right eye and an superior fornix wound was fashioned. Meticulous dissection of scar from the prior surgery was removed. The superior rectus muscle was identified as it attached to the superior border of the lateral rectus. It was dissected free of the associated mild scarring and anterior placed superior oblique. The anterior fibers of the superior oblique were incorporated into the superior rectus insertion. The superior rectus surgery disrupted these fibers and they were repaired with 6.0 Merseline. The superior rectus was imbricated with double-armed 6-0 Vicryl sutureand disinserted from the globe. It was reattached maintaining a temporal location but recessed 4.0 millimeters. It was reattached using a double armed, crossed swords suturing technique. Betadine prep was readministered and the conjunctiva repaired with interrupted 8-0 Vicryl suture. Brief Op Note - Faizan Grant MD - 11/26/2014 11:43 AM CDT [facility] Brief Operative Note Pre-operative diagnosis: Strabismus Post-operative diagnosis Same Procedure: Procedure(s) with comments: RECESSION RESECTION (REPAIR STRABISMUS) - Strabismus Repair Right Eye Surgeon: Montana Meyer MD Assistants(s): Faizan Bey MD Estimated blood loss: Less than 10 mL Specimens: None Findings: As expected documented in this encounter Plan of Treatment Not on filedocumented as of this encounter Procedures Procedure Name Priority Date/Time Associated Diagnosis Comme nts RECESSION OR RESECTION, 11/26/2014 10:37 AM Strabismus MUSCLE, EXTRAOCULAR, FOR CDT STRABISMUS CORRECTION documented in this encounter Visit Diagnoses Not on filedocumented in this encounter Administered Medications Inactive Administered Medications - up to 3 most recent administrations Medication Order MAR Action Action Date Dose Rate Site balanced salts (BSS) Given 11/26/2014 11:10 AM 1 applicator Both Eyes ophthalmic solution CDT PRN, Starting on Tue11/26/14 at 1110, Intra-procedure HYDROcodone-acetaminophen (NORCO) 5-325 MG Given 11/26 2:00 PM CDT 1 tablet per tablet 1 tablet 1 tablet, Oral, EVERY 6 HOURS PRN, moderate to severe pain, Starting on Tue11/26/14 at 1410, Maximum acetaminophen dose from all sources= 75 mg/kg/day not to exceed 4 grams, Phase ll HYDROmorphone (PF) (DILAUDID) injection Given 11/26/2014 12:24 P M CDT 0.3 mg 0.3-0.5 mg 0.3-0.5 mg, Intravenous, EVERY 10 MIN PRN, moderate to severe pain, acute pain.?May administer if RR is > 10 , Starting on Tue11/26/14 at 1210, If fentanyl is also ordered, use HYDROmorphone if pain control insufficient with fentanyl or a longer acting agent is needed. Max cumulative dose = 2 mg, PACU/Phase II lidocaine injection 2% Given 11/26/2014 11:40 AM 1 mL Operative Site/Surgical (MDV) CDT Site PRN, Starting on Tue11/26/14 at 1140, Intra-procedure oxymetazoline (AFRIN) 0.05 % nasal Given 11/26/2014 11:00 AM CDT 1 spray Both Eyes spray PRN, Starting on Tue11/26/14 at 1055, Intra-procedure Given 11/26/2014 10:55 AM CDT 1 spray Both Eyes Scopolamine (TRANSDERM) 1 Given 11/26/2014 10:34 AM CDT 1 patch Behind Left Ear MG/3DAYS patch 1 patch 1 patch, Transdermal, ONCE, On Tue11/26/14 at 1000, For 1 dose, Apply patch to skin, behind ear. Place in Pre-Op. Remove after 24 hours. Each 1.5 mg patch delivers 1 mg of scopolamine., Pre-procedure documented in this encounter Active and Recently Administered Medications Times are shown in CDT. Scheduled Medication Order 11/24/2014 11/25/2014 11/26/2014 Scopolamine (TRANSDERM) 1 MG/3DAYS patch 1 patch (COMPLETED) 1034 (Given - Provider: Lisa Lubin RN) 1 patch, Transdermal, ONCE, On Tue at 1000, For 1 dose, Apply patch to skin, behind ear. Place in Pre-Op. Remove after 24 hours. Each 1.5 mg patch delivers 1 mg of scopolamine., Pre-procedure PRN Medication Order 11/24/2014 11/25/2014 11/26/2014 balanced salts (BSS) ophthalmic solution (CANCELED) 1110 (Given - Provider: Montana Meyer MD) PRN, Starting Tue11/26/14 at 1110, Intra-procedure HYDROcodone-acetaminophen (NORCO) 5-325 MG per tablet 1 tablet ( CANCELED) 1400 (Given - Provider: Abby Quintero RN - Comment: hydrocodone) 1 tablet, Oral, EVERY 6 HOURS PRN, moder ate to severe pain, Starting Tue11/26/14 at 1410, Maximum acetaminophen dose from all sources= 75 mg/kg/day not to exceed 4 grams, Phase ll HYDROmorphone (PF) (DILAUDID) injection 0.3-0.5 mg (CANCELED) 1224 (Given - Provider: Galina Higuera RN) 0.3-0.5 mg, Intravenous, EVERY 10 MIN NH N, Starting Tue11/26/14 at 1210, Until Tue11/26/14 at 1619, moderate to severe pain, acute pain.?May administer if RR is > 10 , PACU/Phase II, If fentanyl i s also ordered, use HYDROmorphone if [place] n control insufficient with fentanyl or a longer acting agent is needed. Max cumulative dose = 2 mg lidocaine injection 2% (MDV) (CANCELED) 1140 (Given - Provider: Montana Meyer MD) PRN, Starting Tue11/26/14 at 1140, Intra-procedure oxymetazoline (AFRIN) 0.05 % nasal spray (CANCELED) 1055 (Given - Provider: Maggie Page, LIZZ)1100 (Given - Provider: Maggie Page RN) PRN, Starting Tue11/26/14 at 1055, Intra-procedure documented in this encounter Care Teams Mechanical Inspector Relationship Specialty Start Date End Date Teresa Vaughan PCP - General Family Practice 05/29/13 05/30/17 [facility] [address] [place] [address] documented as of this encounter
--- OUTSIDE RECORDS SUMMARY | 2022-06-13 21:40 | XMS_ITS | Encounter Summary ---
:1975 Author Organization [place] Address [facility] [place] [address] Care Team Providers Name Role Phone Teresa Vaughan yLla Primary Care Provider Montana Meyer MD Unavailable Jeremy Gibbs MD Unavailable Jose Monahan MD Unavailable Reason for Visit Reason Onset Date Comments Glasses Problem 05/04/2017 Encounter Details Date Type Department Care Team Description 05/04/2017 Telephone [facility] Moiz Mcqueen Glasses Problem - [facility] [address] [place] [address] [place], [place] [facility] [address] [address] [place] [phone] Social History Tobacco Use Types Packs/Day Years Used Date Smoking Tobacco: Every Day Cigarettes 0.3 2 Smokeless Tobacco: Never Alcohol Use Standard Drinks/Week Comments Yes 0 (1 standard drink = 0.6 oz pure alcoho l) occasional Sex Assigned at Date Recorded Not on file documented as of this encounter Miscellaneous Notes Telephone Encounter - Jon Branch RN - 05/04/2017 12:45 PM CDT Last glasses Rx faxed to optical shop per pt request 05-04-17 Jon Branch RN 12:46 PM 05/04/17 Telephone Encounter - Jon Branch RN - 05/04/2017 12:45 PM CDT ----- Message from Yenny Bernal sent at 05/04/2017 12:34 PM CDT ----- Regarding: RX needs to be faxed - Dr Mcqueen Contact: The pt would like her distance RX faxed to [facility] in [place]. The fax # at [facility] in [facility] is [phone]. The RX needed is for distance. NOT for close up. A follow up call to the pt is not needed per the pt. Thanks - yenny Please DO NOT send this message and/or reply back to sender. Call Center Representatives DO NOT respond to messages. documented in this encounter Plan of Treatment Not on filedocumented as of this encounter Visit Diagnoses Not on filedocumented in this encounter Care Teams Machine Etcher Relationship Specialty Start Date End Date Teresa Vaughan PCP - General Family Practice 05/29/13 05/30/17 [facility] [address] [place] [address] Montana Meyer MD MD Ophthalmology 12/10/14 05/30/17 [facility] [address] [place] [address] Jeremy Gibbs MD MD Ophthalmology 12/10/14 Jose Monahan MD MD Ophthalmology 12/10/14 documented as of this encounter
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
--- OUTSIDE RECORDS SUMMARY | 2022-06-13 21:40 | XMS_ITS | Encounter Summary ---
:1975 Author Organization [place] Address [address] [facility] [place] [address] Care Team Providers Name Role Phone Jeremy Gibbs MD Unavailable Jose Monahan MD Unavailable Lise Mcqueen MD Unavailable [phone] Mar Alfaro Primary Care Provider Reason for Visit Reason Comments Bilateral 6th Encounter Details Date Type Department Care Team Description 10/19/2018 Office Visit [facility] Lise Mcqueen ne rve palsy of both eyes (Primary Dx); Clinic Peds Eye MD Mary Lou Diplopia; [address] [place] [address] Ocular torticollis; [facility] [place] [address] [place] Alternating esotropia; 3rd Fl [place], [place] Left homonymous hemianopsia; [place] [address] Hypertropia of right eye [phone] Social History Tobacco Use Types Packs/Day Years Used Date Smoking Tobacco: Every Day Cigarettes 0.3 2 Smokeless Tobacco: Never Alcohol Use Standard Drinks/Week Comments Yes 0 (1 standard drink = 0.6 oz pure alcoho l) occasional Sex Assigned at Date Recorded Not on file documented as of this encounter Progress Notes Lise Mcqueen MD - 10/19/2018 2:40 PM CDT Chief Complaints and History of Present Illnesses Patient presents with ??? Bilateral 6th Review of systems for the eyes was negative other than the pertinent positives and negatives noted in the HPI. History is obtained from the patient Referring provider: Jose Monahan Primary care: Mar Alfaro Assessment Key Lyla Peres is a 43 year old female who presents with: ICD-10-CM 1. 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 Diplopia H53.2 3. 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 Left homonymous hemianopsia H53.462 6. 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 Peres has stable strabismus and is doing well with glasses. Will add 2 BU LE to help fusion. F/u 9 months. Further details of the management plan can be found in the Patient Instructions section which was printed and given to the patient at checkout. Return in about 9 months (around 07/21/2019). Attending Physician Attestation: Complete documentation of historical [...] the patient and family.- Lise Mcqueen MD 11/11/2018 8:55 PM documented in this encounter Nursing Notes Kerry Rojas CO - 10/19/2018 2:40 PM CDT Chief Complaint(s) and History of Present Illness(es) Still wears her glasses. 8 CATHY total. Still has diplopia. Not sure if getting worse. Glasses help, but don't get rid of it completely, they just make it tolerable. Closes left eye to see single. Feels always off balance. documented in this encounter Plan of Treatment Not on filedocumented as of this encounter Procedures Procedure Name Priority Date/Time Associated Diagnosis Comme nts SENSORIMOTOR Routine 11/11/2018 8:57 PM Sixth nerve palsy of R esults for this CDT both eyes procedure are i n the results section . documented in this encounter Results Sensorimotor (11/11/2018 8:57 PM CDT) Narrative Lise Mcqueen MD - 11/11/2018 8:57 PM CDT Performed by: THANH Pastor Patient cooperation: Reliable . Reliability of the test: Good . Test Findings: Strabismus . Interpretation: Exotropia . Plan: Will monitor and consider eye mu scle surgery, Prism therapy . Interval: Same . Lise Mcqueen MD OPHTHALMOLOGY documented in this encounter Visit Diagnoses Diagnosis Sixth nerve palsy of both eyes - Primary Paralytic strabismus, sixth or abducens nerve palsy Diplopia Ocular torticollis Alternating esotropia Left homonymous hemianopsia Homonymous bilateral field defects in vi sual field Hypertropia of right eye documented in this encounter Care Teams Chain Mortiser Operator Relationship Specialty Start Date End Date Mar Alfaro PCP - General 05/31/17 [facility] [address] [place] [address] Jeremy Gibbs MD MD Ophthalmology 12/10/14 Jose Monahan MD MD Ophthalmology 12/10/14 Lise Mcqueen MD MD Ophthalmology 05/31/[address] [place] [address] documented as of this encounter
--- OUTSIDE RECORDS SUMMARY | 2022-06-13 21:40 | XMS_ITS | Encounter Summary ---
:1975 Author Organization [place] Address [facility] [place] [address] Care Team Providers Name Role Phone Jeremy Gibbs MD Unavailable Jose Monahan MD Unavailable Lise Mcqueen MD Unavailable [phone] Mar Alfaro Primary Care Provider Encounter Details Date Type Department Care Team Description 06/16/2017 Telephone [facility] Geri Rodriguez [place] Peds Eye [address] [place] [address] [place] [address] [place], [place] [address] [place] [address] [place] [phone] Social History Tobacco Use Types Packs/Day Years Used Date Smoking Tobacco: Every Day Cigarettes 0.3 2 Smokeless Tobacco: Never Alcohol Use Standard Drinks/Week Comments Yes 0 (1 standard drink = 0.6 oz pure alcoho l) occasional Sex Assigned at Date Recorded Not on file documented as of this encounter Miscellaneous Notes Telephone Encounter - Geri Rodriguez - 06/16/2017 12:23 PM CST L/m with Key to ask if she got two pairs of glasses or one. The prism will be different in each pair. I'm not sure if she wants glasses with or without prism, looks like she is scheduled for surgeryin August and may not need prism in her glasses after that. I will try back later. SIZER documented in this encounter Plan of Treatment Not on filedocumented as of this encounter Visit Diagnoses Not on filedocumented in this encounter Care Teams Farmworker Dairy Relationship Specialty Start Date End Date Mar Alfaro PCP - General 05/31/17 [facility] [address] [place] [address] Jeremy Gibbs MD MD Ophthalmology 12/10/14 Jose Monahan MD MD Ophthalmology 12/10/14 Lise Mcqueen MD MD Ophthalmology 05/31/[address] [place] [phone] documented as of this encounter
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
--- OUTSIDE RECORDS SUMMARY | 2022-06-13 21:40 | XMS_ITS | Encounter Summary ---
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 dosing. This is step 1 of nausea and vom iting management. If not resolved in 15 minutes, then go to step 2 [prochlorperazine (COMPAZINE) if ordered]. Irritant. For ordered doses up to 4 mg, give IV Push undiluted over 2-5 minutes., PACU/Phase II ondansetron (ZOFRAN-ODT) ODT tab 4 mg(Linked Group 1) 4 mg, Oral, EVERY 30 MIN PRN, nausea, vo miting, Starting 08/10/17 at 1342, For 2 doses, MAX total dose = 8 mg, including OR dosing. This is step 1 of nausea and vomiting management. If not resolved in 15 minutes, then go to step 2 [prochlor perazine (COMPAZINE) if ordered]., PACU/Phase II ondansetron (ZOFRAN-ODT) ODT tab 4 mg(Linked Group 2) 4 mg, Oral, EVERY 30 MIN PRN, nausea, vo miting, Starting Tue08/10/17 at 1407, For 2 doses, MAX total dose = 8 mg, including OR dosing. This is step 1 of nausea and vomiting management. If not resolved in 15 minutes, then go to step 2 [prochlor perazine (COMPAZINE) if ordered]., PACU/Phase II ORAL Pain Medications - may administer as ordered by surgeon for take home use 1526 (Given - Provider: Nadiya molina, RN - Comment: oxycodone IR 5mg tab) CONTINUOUS PRN, Starting Tue08/10/17 at 1 407, Until Tue08/10/17 at 1934, May administer oral pain medications as ordered by surgeon for take home use. Discontinue IV pain medication prior to administration of oral pain medication., PACU/Phase II oxymetazoline (AFRIN) 0.05 % spray 1213 (Given - Provider: Lise Mcqueen MD - Comment: 1 spray into each eye. pre and post prep) PRN, Starting Tue08/10/17 at 1213, Intra-procedure prochlorperazine (COMPAZINE) injection 10 mg 10 mg, Intravenous, EVERY 6 HOURS PRN, n ausea, vomiting, Administer over 1-2 Minutes, Starting Tue08/10/17 at 1407, This is Step 2 of nausea and vomiting management. If nausea not resolved in 15 minutes, give metoclopramide (REGLAN) if ordered [step 3 of nausea and vomiting management]. For ordered doses up to 10 mg, give IV Push undiluted. Each 5mg over 1 minute., PACU/Phase II Linked Groups Order Group 1: ondansetron (ZOFRAN-ODT) ODT tab 4 mgJump to med 4 mg, Oral, EVERY 30 MIN PRN, nausea, vo miting, Starting Tue08/10/17 at 1342, For 2 doses
MAX total dose = 8 mg, including OR dosing. This is step 1 of nausea and vomiting management. & amp;nbsp;If not resolved in 15 minutes, then go to step 2 [prochlorperazine (COMPAZINE) if ordered].
PACU/Phase II Or ondansetron (ZOFRAN) injection 4 mgJump to med 4 mg, Intravenous, EVERY 30 MIN PRN, favio sea, vomiting, Administer over 2-5 Minutes, Starting 08/10/17 at 1342, For 2 doses
MAX total dose = 8 mg, including OR dosing. This is step 1 of nausea and vomiting management. If not resolved in 15 minutes, then go to step 2 [prochlorperazine (COMPAZINE) if ordered]. Irritant. For ordered doses up to 4 mg, give IV Push undiluted over 2-5 minutes.
PACU/Phase II Group 2: ondansetron (ZOFRAN-ODT) ODT tab 4 mgJump to med 4 mg, Oral, EVERY 30 MIN PRN, nausea, vo miting, Starting 08/10/17 at 1407, For 2 doses
MAX total dose = 8 mg, including OR dosing. This is step 1 of nausea and vomiting management. & amp;nbsp;If not resolved in 15 minutes, then go to step 2 [prochlorperazine (COMPAZINE) if ordered].
PACU/Phase II Or ondansetron (ZOFRAN) injection 4 mgJump to med 4 mg, Intravenous, EVERY 30 MIN PRN, favio sea, vomiting, Administer over 2-5 Minutes, Starting 08/10/17 at 1407, For 2 doses
MAX total dose = 8 mg, including OR dosing. This is step 1 of nausea and vomiting management. If not resolved in 15 minutes, then go to step 2 [prochlorperazine (COMPAZINE) if ordered]. Irritant. For ordered doses up to 4 mg, give IV Push undiluted over 2-5 minutes.
PACU/Phase II documented in this encounter Care Teams Safety And Occupational Health Manager Relationship Specialty Start Date End Date Mar Alfaro PCP - General 05/31/17 [facility] [address] [place] [address] Jeremy Gibbs MD MD Ophthalmology 12/10/14 Jose Monahan MD MD Ophthalmology 12/10/14 Lise Mcqueen MD MD Ophthalmology 05/31/17 [address] [place] [phone] documented as of this encounter
--- OUTSIDE RECORDS SUMMARY | 2022-06-13 21:40 | XMS_ITS | Encounter Summary ---
:1975 Author Organization [place] Address [facility] [place] [address] Care Team Providers Name Role Phone Sahra Vaughanmichael Arita Primary Care Provider Montana Meyer MD Unavailable Jeremy Gibbs MD Unavailable Jose Monahan MD Unavailable Reason for Visit Reason Onset Date Comments Glasses Problem 05/05/2017 Encounter Details Date Type Department Care Team Description 05/05/[address] [facility] Moiz Mcqueen ll Glasses Problem - MD Cezar Gomesteen [address] [place] [address] [place], [place] 9th [place] [facility] [address] [address] [place] [phone] Social History Tobacco Use Types Packs/Day Years Used Date Smoking Tobacco: Every Day Cigarettes 0.3 2 Smokeless Tobacco: Never Alcohol Use Standard Drinks/Week Comments Yes 0 (1 standard drink = 0.6 oz pure alcoho l) occasional Sex Assigned at Date Recorded Not on file documented as of this encounter Miscellaneous Notes Telephone Encounter - Jon Branch RN - 05/05/2017 11:04 AM CDT Reviewed and confirm with optical shop which Rx was distance and which near Jon Branch RN 11:04 AM 05/05/17 Telephone Encounter - Jon Branch RN - 05/05/2017 11:04 AM CDT ----- Message from Alfreda Ryan sent at 05/05/2017 10:37 AM CDT ----- Regarding: Glasses Script Contact: Codi from [facility] is requesting a call back to verify pt's glasses script from Dr. Mcqueen. Thank you! KI Please DO NOT send this message and/or reply back to sender. Call Center Representatives DO NOT respond to messages. documented in this encounter Plan of Treatment Not on filedocumented as of this encounter Visit Diagnoses Not on filedocumented in this encounter Care Teams Yard Pipe Grader Relationship Specialty Start Date End Date Teresa Vaughan PCP - General Family Practice 05/29/13 05/30/17 [facility] [address] [place] [address] Montana Meyer MD MD Ophthalmology 12/10/14 05/30/17 [facility] [address] [place] [address] Jeremy Gibbs MD MD Ophthalmology 12/10/14 Jose Monahan MD MD Ophthalmology 12/10/14 documented as of this encounter
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
--- OUTSIDE RECORDS SUMMARY | 2022-06-13 21:40 | XMS_ITS | Encounter Summary ---
:1975 Author Organization [place] Address [address] [facility] [place] [address] Care Team Providers Name Role Phone Teresa Vaughan Primary Care Provider Reason for Visit Auth/Cert - Closed Specialty Diagnoses / Procedures Referred By Contact Refer red To Contact Surgery Diagnoses Strabismus Ur Periop Procedures RECESSION RESECTION (REPAIR STRABISMUS) BILATERAL [facility] [place] [address] Phone: Fax: Referral ID Status Reason Start Date Expiration Date Visits Requ ested Visits Authorized [id number] Closed 1 1 Encounter Details Date Type Department Care Team Description 11/26/2014 Anesthesia Event Formerly [facility] Jose Garnett MD PeriOp Services [address] [facility] [place] [address] [facility] [address] [place] [address] [place], [place] [id number] (Wo rk) Anesthesia Record Procedure Summary Procedure Name Responsible Anesthesia Start Anesthesia Stop Anesthesiologist Time Time Strabismus Repair Jose Garnett MD 11/26/14 1037 11/26/14 1157 Right Eye (Right: Eye) Events Date Time Event Comment 11/26/2014 1009 1037 An Start 1040 An Start Data 1045 An Induction 1048 An Intubation 1048 AN START SILVANO 1108 MD Present 1108 AN INCISION 1120 MD Present 1130 MD Present 1141 AN END SILVANO BILLING 1150 AN Extubation 1152 an stop data Transport to PAC U, VSS, report given, patient comfortable. 1157 An Stop Electronically s igned by Ashley Fernandez on November 26, 2014 11:57 A M 1211 MD Present Name Total midazolam 1mg/mL 2 mg fentanyl 50mcg/mL 150 mcg lidocaine 2% 100 mg propofol 10mg/mL 160 mg rocuronium 10mg/mL 30 mg dexamethasone 4mg/mL 6 mg ondansetron 2mg/mL 4 mg glycopyrrolate 0.2mg/mL 1 mg neostigmine 1mg/mL 3 mg No abx ordered pre-op 1 each propofol infusion (mcg/kg/min) 126.8 mg Scopolamine (TRANSDERM) 1 MG/3DAYS patch 1 patch 0 pat ch ketorolac 30mg/mL 30 mg LR 600 mL Agents Name O2 Air Exp Desflurane Ins Desflurane Blood No blood administrations on file. Lines, Drains, and Airways Type Details Placement Removal Incision/Surgical Site 04/02/14; 1433; 04/02/14 1433 by 08/10/17 1210 by Bilateral; Eye Charisma Mckeon RN Krajacic, Durga rodriguez (conjuntival VIOLET Long CRNA incisions); 08/10/17; 1210 Incision/Surgical Site 08/13/14; 0905; 08/13/14 0905 by 08/10/17 1210 by Bilateral; Eye; Maggie Martínez Jennif er Bilateral Eyes; LIZZ Long APRN CRNA 08/10/17; 1210 Peripheral IV 11/26/14; 1038; 20 G; 11/26/14 1038 by 11/26/14 1413 by Left; Lower forearm; Lisa Lubin Schoene cker, Susan Chlorhexidine; LIZZ Lo, RN Injectable; Tolerated well RETIRED ETT 11/26/14; 1048; Mask 11/26/14 1048 by 11/26/14 1 150 by Ventilation: Easy with Hermilo Shaw Charles oral airway; Ease of VIOLET Barnett CRNA, APRN CRNA Intubation: Easy; Cuffed; Oral; Blade Type: Jose Guadalupe; Blade Size: 3; Place by: [facility]; Insertion Attempts: 1; Secured at (cm)to lip: 22 cm; Breath Sounds: Equal, clear and bilateral; End Tidal CO2: Present; Dentition: Intact; Grade View of Cords: 2 Incision/Surgical Site 11/26/14; 1111; Left; 11/26/14 1111 by 1210 by Eye; Conjunctiva of the KayleeMaggie R, Olivia Baez right eye; 08/10/17; LIZZ Long APRN IT INFRASTRUCTURE SPECIALIST 1210 documented in this encounter Social History Tobacco Use Types Packs/Day Years Used Date Smoking Tobacco: Every Day Cigarettes 0.3 2 Smokeless Tobacco: Never Alcohol Use Standard Drinks/Week Comments Yes 0 (1 standard drink = 0.6 oz pure alcoho l) occasional Sex Assigned at Date Recorded Not on file documented as of this encounter OR Notes Anesthesia Postprocedure Evaluation - Jose Garnett MD - 11/26/2014 12:53 PM CDT Anesthesia Post-Evaluation Note Patient: Key Peres Patient location: Phase II Procedure(s) Performed: Procedure(s) with comments: RECESSION RESECTION (REPAIR STRABISMUS) - Strabismus Repair Right Eye Anesthesia type: General Post Op Diagnosis: * No post-op diagnosis entered * No value filed. Patient Condition Respiratory Function (RR / SpO2 / Airway Patency): Satisfactory Cardiac Function (HR / Rhythm / BP): Satisfactory Mental Status: Satisfactory. Able to fully participate in evaluation Temperature: Satisfactory Pain Control: Satisfactory PONV: None Beta-Urmila Therapy: None indicated Hydration Status: Satisfactory Last Vitals: Filed Vitals: 11/26/14 1215 11/26/14 1230 11/26/14 1245 BP: 119/73 117/71 117/80 Temp: 36.7 ??C (98.1 ??F) Resp: 22 14 20 SpO2: 95% 94% 94% Additional Comments: Vital signs stable, awake and breathing well Jose Garnett M.D. Pager [phone] Anesthesia Preprocedure Evaluation - Jose Garnett MD - 11/26/2014 9:51 AM CDT Anesthesia Plan ASA Score: 3 . Plan for General - with Intravenous induction.Maintenance will be Inhalation. Routine analgesia and antiemetics to be used for post-operative care. Anesthetic plan, risks, benefits and alternatives discussed with: patient or event marketing representative. . History & Physical Review History and physical reviewed and following examination; no interval change. ANESTHESIA PREOP EVALUATION NPO Status: npo Procedure: Procedure(s) with comments: RECESSION RESECTION (REPAIR STRABISMUS) BILATERAL - Strabismus Repair One or Both Eyes HPI: Presents for above procedure. PMHx/PSHx/ROS: PAST MEDICAL HISTORY: Past Medical History Diagnosis Date ??? Strabismus ??? PONV (postoperative nausea and vomiting) PAST SURGICAL HISTORY: Past Surgical History Procedure Laterality Date ??? Hc tooth extraction w/forcep age 19 ??? Recession resection (repair strabismus) bilateral Bilateral 04/02/2014 Procedure: RECESSION RESECTION (REPAIR STRABISMUS) BILATERAL; Surgeon: Montana Meyer MD; Location: [facility] OR ??? Recession resection (repair strabismus) bilateral Bilateral 08/13/2014 Procedure: RECESSION RESECTION (REPAIR STRABISMUS) BILATERAL; Surgeon: Montana Meyer MD; Location: [facility] OR FAMILY HISTORY: Family History Problem Relation Age of Onset ??? Cardiovascular Father MA twice ??? Allergies Brother spring ??? Allergies Sister spring Past Anes Hx: No personal or family h/o anesthesia problems Soc Hx: Tobacco: EtOH: Allergies: Allergies Allergen Reactions ??? No Known Allergies Meds: Prescriptions prior to admission Medication Sig Dispense Refill ??? METOPROLOL TARTRATE PO Take 50 mg by mouth 2 times daily ??? Mirtazapine (REMERON PO) Take 15 mg by mouth daily ??? nicotine (NICODERM CQ) 21 MG/24HR patch 2h hr Place 1 patch onto the skin every 24 hours ??? Methylphenidate HCl (RITALIN PO) Take 20 mg by mouth 2 times daily ??? CLONAZEPAM PO Take 1 tablet by mouth 2 times daily as needed ??? erythromycin with ethanol (EMGEL) 2 % gel Apply topically daily as needed Apply thin layer on face M-W-F ??? Multiple Vitamins-Minerals (MULTIVITAMIN OR) ??? Ondansetron HCl (ZOFRAN PO) Take 1 tablet by mouth daily as needed No current outpatient prescriptions on file. Physical Exam: VS: T 98.2, P Data Unavailable, BP Data Unavailable, R 16, SpO2 98% Weight Wt Readings from Last 2 Encounters: 11/26/14 75.7 kg (166 lb 14.2 oz) 11/26/14 75.7 kg (166 lb 14.2 oz) Airway: MP 2, TM>3FB, Neck full ROM Dentition: no loose teeth Heart: RRR Lungs: CTAB BMP: No results found for this basename: na No results found for this basename: potassium No results found for this basename: chloride No results found for this basename: ezequiel No results found for this basename: co2 No results found for this basename: BUN No results found for this basename: CR No results found for this basename: glc CBC: No results found for this basename: WBC No results found for this basename: hgb No results found for this basename: hct No results found for this basename: plt Coags/Type and Screen No results found for this basename: INR No results found for this basename: PT Type and Screen: Assessment/Plan: - ASA 3 - GETA with standard ASA monitors, IV induction, balanced anesthetic - PIV - Antibiotics per surgery - PONV prophylaxis - Blood products available, possible administration discussed with patient Jose Garnett MD 11/26/2014 9:52 AM I have examined the patient and reviewed the record with the above resident or OVEREDGE SEWER and agree with above assessment and recommendations. Jose Garnett M.D. Staff Anesthesiologist November 26, 2014, 9:53 AM . documented in this encounter Miscellaneous Notes Anesthesia Care Transfer Note - Ashley Fernandez APRN CRNA - 11/26/2014 11:57 AM CDT Anesthesia Care Transfer Note Patient: Key Peres Transferred to: PACU Patient vital signs: stable Airway: none documented in this encounter Plan of Treatment Not on filedocumented as of this encounter Visit Diagnoses Not on filedocumented in this encounter Administered Medications Inactive Administered Medications - up to 3 most recent administrations Medication Order MAR Action Action Date Dose Rate Site dexamethasone (DECADRON) injection Given 11/26/2014 11:02 AM CDT 6 mg Intravenous, PRN, Administer over 1-4 Minutes, Starting on Tue11/26/14 at 1102, Anesthesia Intra-op fentaNYL (SUBLIMAZE) injection Given 11/26/2014 10:45 AM CDT 150 mcg Intravenous, PRN, moderate to severe pain, Starting on Tue11/26/14 at 1045, Anesthesia Intra-op glycopyrrolate (ROBINUL) injection Given 11/26/2014 11:41 AM CDT 0.4 mg Intravenous, PRN, Starting on Tue11/26/14 at 1045, Anesthesia Intra-op Given 11/26/2014 11:10 AM CDT 0.2 mg Given 11/26/2014 11:08 AM CDT 0.2 mg ketorolac (TORADOL) injection Given 11/26/2014 11:07 AM CDT 30 mg PRN, moderate pain, Starting on Tue11/26/14 at 1107, Anesthesia Intra-op lactated ringers infusion New Bag 11/26/2014 10:40 AM CDT Intravenous, CONTINUOUS PRN, Anesthesia Intra-op, Starting on Tue11/26/14 at 1040, Until Tue11/26/14 at 1157 lidocaine injection 2% (MDV) Given 11/26/2014 10:45 AM CDT 100 mg Intravenous, PRN, Starting on Tue11/26/14 at 1045, Anesthesia Intra-op midazolam (VERSED) injection Given 11/26/2014 10:40 AM CDT 2 mg Intravenous, PRN, anxiety, Starting on Tue11/26/14 at 1040, Anesthesia Intra-op neostigmine (PROSTIGMINE) injection Given 11/26/2014 11:41 AM CDT 3 mg Intravenous, PRN, Starting on Tue11/26/14 at 1141, Anesthesia Intra-op No abx ordered pre-op Given 11/26/2014 10:55 AM CDT 1 each PRN, Starting on Tue11/26/14 at 1055, Until Tue11/26/14 at 1157, Anesthesia Intra-op ondansetron (ZOFRAN) injection Given 11/26/2014 11:07 AM CDT 4 mg Intravenous, PRN, nausea, vomiting, Administer over 2-5 Minutes, Starting on Tue11/26/14 at 1107, Anesthesia Intra-op propofol (DIPRIVAN) infusion Rate/Dose 11/26/2014 11:12 25 mcg/kg/min 11.4 mL/hr Intravenous, CONTINUOUS PRN, Change AM CDT Starting on Tue11/26/14 at 1050, Anesthesia Intra-op New Bag 11/26/2014 10:50 AM CDT 50 mcg/kg/min 22.7 mL/hr propofol (DIPRIVAN) injection 10 mg/mL v ial Given 11/26/2014 10:45 AM CDT 160 mg Intravenous, PRN, Starting on Tue11/26/14 at 1045, Anesthesia Intra-op rocuronium (ZEMURON) injection Given 11/26/2014 10:45 AM CDT 30 mg Intravenous, PRN, Starting on Tue11/26/14 at 1045, Anesthesia Intra-op documented in this encounter Care Teams Assistant Research Scientist Relationship Specialty Start Date End Date Teresa Vaughan PCP - General Family Practice 05/29/13 05/30/[address] [address] documented as of this encounter
--- OUTSIDE RECORDS SUMMARY | 2022-06-13 21:40 | XMS_ITS | Encounter Summary ---
:1975 Author Organization [place] Address [address] [place] [address]. [place] [address] Care Team Providers Name Role Phone Teresa Vaughan Lyla Primary Care Provider Reason for Visit Reason Comments Sixth Nerve Palsy with fresnel prism she does not note diplopia notes diplopia sc, vision seems bl urry, no changes in alignment since LV Visual Field Loss Follow Up notes black line in left s rosario of vision, no changes since LV Encounter Details Date Type Department Care Team Description 11/11/2014 Office Visit [facility] Eye Adult Double Montana Meyer, Alt ernating esotropia (Primary Dx); Vision MD Sixth nerve palsy of both eyes; [address] [facility] Left homonymous hemianopsia [address] Floor, [address] [place] [phone] [phone] Social History Tobacco Use Types Packs/Day Years Used Date Smoking Tobacco: Every Day Cigarettes 0.3 2 Smokeless Tobacco: Never Alcohol Use Standard Drinks/Week Comments Yes 0 (1 standard drink = 0.6 oz pure alcoho l) occasional Sex Assigned at Date Recorded Not on file documented as of this encounter Patient Instructions Patient InstructionsBoMontana grande MD - 11/11/2014 2:58 PM CDT Continue prism use or strabismus surgery. documented in this encounter Progress Notes Montana Meyer MD - 11/11/2014 3:03 PM CDT Chief Complaints and History of Present Illnesses Patient presents with ??? Sixth Nerve Palsy with fresnel prism she does not note diplopia notes diplopia sc, vision seems blurry, no changes inalignment since LV ??? Visual Field Loss Follow Up notes black line in left side of vision, no changes since LV Review of systems for the eyes was [...] has had a good postop result. Her horizontal angle of deviation in primary position is outstanding. As expected, abduction remains limited due to the chronic sixth nerve dysfunction. Left hypoptropia (present prior to transposition) I discussed the option of right superior rectus recession. The risk including vision loss, continued double vision and eyelid asymmetry was discussed. Left homonymous hemianopsia History of left orbital floor fracture Eye movements are not restricted and there is no enophthalmia. Patient Instructions Continue prism use or strabismus surgery. Further details of the management plan can be found in the Patient Instructions section which was printed and given to the patient at checkout. Return in about 6 months (around 05/13/2015). Unless surgery is desired. Attending Physician Attestation: I have seen and [...] with this note. - Montana Meyer MD documented in this encounter Plan of Treatment Scheduled Orders Name Type Priority Associated Diagnoses Order S chedule Silvina-Operative Procedures Routine Alternating Esot ropia Ordered: 11/11/2014 Worksheet (Peds) Sixth nerve palsy of both eyes Left homonymous hemianopsia documented as of this encounter Procedures Procedure Name Priority Date/Time Associated Diagnosis Comme nts HDEZ VISUAL FIELD Routine 11/11/2014 10:36 PM Left homonymo us DMV OU (BOTH EYES) CDT hemianopsia GLAUCOMA TOP OU Routine 11/11/2014 10:36 PM Left homonymous CDT hemianopsia documented in this encounter Results Hdez Visual Field DMV OU (both eyes) (11/11/2014 10:36 PM CDT) Montana Meyer MD OPHTHALMOLOGY Glaucoma Top OU (11/11/2014 10:36 PM CDT) Montana Meyer MD OPHTHALMOLOGY documented in this encounter Visit Diagnoses Diagnosis 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
--- OUTSIDE RECORDS SUMMARY | 2022-06-13 21:40 | XMS_ITS | Encounter Summary ---
:1975 Author Organization [place] Address [address] [place] [address] Care Team Providers Name Role Phone Rochellesheridan Teresa D Primary Care Provider Montana Meyer MD Unavailable Jeremy Gibbs MD Unavailable Jose Monahan MD Unavailable Reason for Visit Reason Onset Date Comments Appointment 03/09/2016 Encounter Details Date Type Department Care Team Description 03/09/2016 Telephone [facility] Ophthalmolo Lise Mahmood, Appointment [address] [facility] 4th Floor [address] [place] [phone] [place] [address] (Wo rk) Social History Tobacco Use Types Packs/Day Years Used Date Smoking Tobacco: Every Day Cigarettes 0.3 2 Smokeless Tobacco: Never Alcohol Use Standard Drinks/Week Comments Yes 0 (1 standard drink = 0.6 oz pure alcoho l) occasional Sex Assigned at Date Recorded Not on file documented as of this encounter Miscellaneous Notes Telephone Encounter - Jon Branch RN - 03/09/2016 11:22 AM CDT Reviewed with pt ok to f/u in 8 months instead of 6 months in lieu of new vision changes Pt to call if has new changes and verbally demonstrated understanding Pt seemed satisfied with conversation Jon Branch RN 11:23 AM 03/09/2016 Telephone Encounter - Jon Branch RN - 03/09/2016 11:22 AM CDT ----- Message from Micky Burdenzog sent at 03/09/2016 10:28 AM CDT ----- Regarding: Pt schedule 6 month follow up at 8 months, wants to know if that is ok Contact: Pt called to schedule her 6 month f/u with Dr. Mcqueen, unfortunately the first available is 05/25 which is 8 months out she wants to make sure that is ok with Dr. Mcqueen as She did not know what she was supposed to schedule. Thank you Micky :) Please DO NOT send this message and/or reply back to sender. Call Center Representatives DO NOT respond to messages. documented in this encounter Plan of Treatment Not on filedocumented as of this encounter Visit Diagnoses Not on filedocumented in this encounter Care Teams Rn Tele Relationship Specialty Start Date End Date Teresa Vaughan PCP - General Family Practice 05/29/13 05/30/17 [facility] [address] [place] [address] Montana Meyer MD MD Ophthalmology 12/10/14 05/30/17 [facility] [address] [place] [address] Jeremy Gibbs MD MD Ophthalmology 12/10/14 Jose Monahan MD MD Ophthalmology 12/10/14 documented as of this encounter
--- OUTSIDE RECORDS SUMMARY | 2022-06-13 21:40 | XMS_ITS | Encounter Summary ---
:1975 Author Organization [place] Address [address] [facility] [place] [address] Care Team Providers Name Role Phone Jeremy Gibbs MD Unavailable Jose Monahan MD Unavailable Lise Mcqueen MD Unavailable [phone] Mar Alfaro Primary Care Provider Reason for Visit Reason Comments Post Op (Ophthalmology) Both Eyes s/p LMRc re-recessio n 2 mm (5.0 mm to 7.0) and LIRc 4.0 mm on 08/10/17. she notes that she has had difficulty opening her left eye. she is having constant diplopia and is run bright into younger. feels worse now compared to prior to surgery. denies nausea, emesis. Encounter Details Date Type Department Care Team Description 08/25/2017 Office Visit [facility] Lise Mcqueen Paralyti c strabismus, sixth or abducens nerve palsy, bilateral (Primary Dx); Clinic Peds Eye MD Mary Lou Diplopia; [address] [place] [address] Left homonymous hemianopsia; [facility] 3RD [place] Alternating esotropia; 3rd Fl [place], [place] [phone] Social History Tobacco Use Types Packs/Day Years Used Date Smoking Tobacco: Every Day Cigarettes 0.3 2 Smokeless Tobacco: Never Alcohol Use Standard Drinks/Week Comments Yes 0 (1 standard drink = 0.6 oz pure alcoho l) occasional Sex Assigned at Date Recorded Not on file documented as of this encounter Progress Notes Lise Mcqueen MD - 08/25/2017 2:20 PM CST Chief Complaints and History of Present Illnesses Patient presents with ??? Post Op (Ophthalmology) Both Eyes s/p LMRc re-recession 2 mm (5.0 mm to 7.0) and LIRc 4.0 mm on 08/10/17. she notes that she has had difficulty opening her left eye. she is having constant diplopia and is running into younger. feels worsenow compared to prior to surgery. denies nausea, emesis. Review of systems for the eyes was negative other than the pertinent positives and negatives noted in the HPI. History is obtained from the patient Referring provider: Mar Alfaro Primary care: Mar Alfaro Assessment Key Peres is a 42 year old female who presents with: ICD-10-CM 1. 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 Diplopia H53.2 3. 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 Peres is POW #2 s/p Exploration and lysis of adhesions on PO LMR and LIR muscles, rerecession of LMR from 5-7.0 millimeters from the OI and LIRc 4.00 millimeters (keeping in a temporally transposed position). Ms Peres has no vertical misalignment today but still has esotropia. Will give glasses prescription with 4 CATHY each lens. F/u 2 months. Further details of the management plan can be found in the Patient Instructions section which was printed and given to the patient at checkout. Return in about 2 months (around 10/23/2017). Attending Physician Attestation: Complete documentation of historical [...] the patient and family.- Lise Mcqueen MD 09/07/2017 3:45 PM E BUSINESS PROJECT MANAGER documented in this encounter Nursing Notes Geri Rodriguez - 08/25/2017 2:20 PM CST Chief Complaint Patient presents with ??? Post Op (Ophthalmology) Both Eyes s/p LMRc re-recession 2 mm (5.0 mm to 7.0) and LIRc 4.0 mm on 08/10/17. she notes that she has had difficulty opening her left eye. she is having constant diplopia and is running into younger. feels worsenow compared to prior to surgery. denies nausea, emesis. HPI Symptoms: Double vision Frequency: Constant E BUSINESS PROJECT MANAGER documented in this encounter Plan of Treatment Not on filedocumented as of this encounter Visit Diagnoses Diagnosis Paralytic strabismus, sixth or abducens nerve palsy, bilateral - Primary Diplopia Left homonymous hemianopsia Homonymous bilateral field defects in vi sual field Alternating esotropia Ocular torticollis documented in this encounter Care Teams Systems Software Specialist Relationship Specialty Start Date End Date Mar Alfaro PCP - General 05/31/17 [facility] [address] [place] [address] Jeremy Gibbs MD MD Ophthalmology 12/10/14 Jose Monahan MD MD Ophthalmology 12/10/14 Lise Mcqueen MD MD Ophthalmology 05/31/[address] [place] [address] documented as of this encounter
--- OUTSIDE RECORDS SUMMARY | 2022-06-13 21:40 | XMS_ITS | Encounter Summary ---
:1975 Author Organization [facility] Address [address] [place] [address]. [place] [address] Care Team Providers Name Role Phone Jeremy Gibbs MD Unavailable Jose Monahan MD Unavailable Lise Mcqueen MD Unavailable [phone] Mar Alfaro Primary Care Provider Reason for Visit Reason Comments Esotropia Follow Up RSE. New glasses giving head aches, wearing the ones giving by Dr Meyer which improves diplop ia. Vision is stable. Auth/Cert Specialty Diagnoses / Procedures Referred By Contact Refer red To Contact Surgery Diagnoses Strabismus, Diplopia, Alternating Esotropia, Hypertropia Ur Periop Procedures RECESSION RESECTION (REPAIR STRABISMUS) BILATERAL [address] [place] [address] Phone: Fax: Referral ID Status Reason Start Date Expiration Date Visits Requ ested Visits Authorized [id number] 1 1 Encounter Details Date Type Department Care Team Description 08/10/2017 Office Visit [facility] Lise Mcqueen MD [address] [place] [address] Paralytic strabismus, sixth or abducens nerve palsy, bilateral (Primary Dx); Clinic Peds Eye Orthoptics, Ump Eye Hypertropia of right eye; [address] [place] [address] Diplopia; [facility] [place] Left ho monymous hemianopsia [address] [place] [address] Social History Tobacco Use Types Packs/Day Years Used Date Smoking Tobacco: Every Day Cigarettes 0.3 2 Smokeless Tobacco: Never Alcohol Use Standard Drinks/Week Comments Yes 0 (1 standard drink = 0.6 oz pure alcoho l) occasional Sex Assigned at Date Recorded Not on file documented as of this encounter Progress Notes Piedad Quintanilla CO - 08/10/2017 8:45 AM CST Chief Complaint(s) & History of Present Illness Chief Complaint Patient presents with ??? Esotropia Follow Up RSE. New glasses giving headaches, wearing the ones giving by Dr Meyer which improves diplopia. Vision is stable. Assessment and Plan: Key Peres is a 42 year old female who presents with: Paralytic strabismus, sixth or abducens nerve palsy, bilateral Hypoytopia of left eye Diplopia - Sensorimotor Stable Discussed prisms, stop glasses after surgery. We will reassess alignment post-op and prescribe new glasses Left homonymous hemianopsia PLAN: Surgery as planned Stop present glasses after surgery. We will check alignment in a few weeks and prescribe new glasses ERCIAL LINES ACCOUNT MANAGER documented in this encounter Nursing Notes Piedad Quintanilla CO - 08/10/2017 8:45 AM CST Chief Complaint Patient presents with ??? Esotropia Follow Up RSE. New glasses giving headaches, wearing the ones giving by Dr Meyer which improves diplopia. Vision is stable. HPI Symptoms: Do you have eye pain now?: No ERCIAL LINES ACCOUNT MANAGER documented in this encounter Plan of Treatment Not on filedocumented as of this encounter Procedures Procedure Name Priority Date/Time Associated Diagnosis Comme nts SENSORIMOTOR Routine 08/10/2017 9:33 AM Paralytic strabismus, Results for this COMMERCIAL LINES ACCOUNT MANAGER sixth or abducens procedure are in the nerve palsy, results section . bilateral Hypertropia of right eye Diplopia documented in this encounter Results Sensorimotor (08/10/2017 9:33 AM COMMERCIAL LINES ACCOUNT MANAGER) Narrative Piedad Quintanilla CO - 08/10/2017 9:33 AM COMMERCIAL LINES ACCOUNT MANAGER Performed by: THANH Jacob Patient cooperation: Reliable . Reliability of the test: Good . Test Findings: Strabismus . Interpretation: 6th nerve palsy . Plan: Will monitor and consider eye mu scle surgery . Interval: Same . Lise Mcqueen MD OPHTHALMOLOGY documented in this encounter Visit Diagnoses Diagnosis Paralytic strabismus, sixth or abducens nerve palsy, bilateral - Primary Hypertropia of right eye Diplopia Left homonymous hemianopsia Homonymous bilateral field defects in vi sual field documented in this encounter Care Teams Business Analysis Consultant Relationship Specialty Start Date End Date Mar Alfaro PCP - General 05/31/17 [facility] [address] [place] [address] Jeremy Gibbs MD MD Ophthalmology 12/10/14 Jose Monahan MD MD Ophthalmology 12/10/14 Lise Mqcueen MD MD Ophthalmology 05/31/[address] [place] [id number] documented as of this encounter
--- OUTSIDE RECORDS SUMMARY | 2022-06-13 21:40 | XMS_ITS | Encounter Summary ---
:1975 Author Organization [facility] Address [address] [facility] [place] [address] Care Team Providers Name Role Phone Jeremy Gibbs MD Unavailable Jose Monahan MD Unavailable Lise Mcqueen MD Unavailable [phone] Mar Alfaro Primary Care Provider Reason for Visit Reason Comments Post Op (Ophthalmology) Both Eyes still has diplopia, but better than last visit with ground in prisms at distance . Difficult to read with or without glasses. Encounter Details Date Type Department Care Team Description 04/20/[address] [facility] Lise Mcqueen rve palsy of both eyes (Primary Dx); Clinic Peds Eye MD Mary Lou Diplopia; [address] [place] [address] Left homonymous hemianopsia; [facility] [address] [place] Alternating esotropia; [address] [place], [place] Hypertropia [place], [place] [address] Social History Tobacco Use Types Packs/Day Years Used Date Smoking Tobacco: Every Day Cigarettes 0.3 2 Smokeless Tobacco: Never Alcohol Use Standard Drinks/Week Comments Yes 0 (1 standard drink = 0.6 oz pure alcoho l) occasional Sex Assigned at Date Recorded Not on file documented as of this encounter Patient Instructions Patient InstructionsLise Mcqueen MD - 04/20/2018 11:20 AM CDT OK to try no glasses for computer work. Continue present glasses for distance and mid-range activities. documented in this encounter Progress Notes Lise Mcqueen MD - 04/20/2018 11:20 AM CDT Chief Complaints and History of Present Illnesses Patient presents with ??? Post Op (Ophthalmology) Both Eyes still has diplopia, but better than last visit with ground in prisms at distance. Difficult to readwith or without glasses. Review of systems for the eyes was negative other than the pertinent positives and negatives noted in the HPI. History is obtained from the patient Referring provider: Jose Monahan Primary care: Mar Alfaro Key Peres is a 43 year old female who presents with: ICD-10-CM 1. 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 Diplopia H53.2 3. 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 Peres is doing fairly well with present glasses.(5BO BE) but is then small LXT' at near. OK to try no glasses for computer work. Continue present glasses for distance and mid-range activities. F/u 6 months. Further details of the management plan can be found in the Patient Instructions section which was printed and given to the patient at checkout. Return in about 6 months (around 10/18/2018). Attending Physician Attestation: Complete documentation of historical [...] the patient and family.- Lise Mcqueen MD 05/05/2018 8:08 AM documented in this encounter Nursing Notes Piedad Quintanilla CO - 04/20/2018 11:20 AM CDT Chief Complaint Patient presents with ??? Post Op (Ophthalmology) Both Eyes still has diplopia, but better than last visit with ground in prisms HPI Symptoms: Comments: Getting by since last visit in August. S/p 08/10/17 Exploration and lysis of adhesions onPO LMR and LIR muscles, rerecession of LMR from 5-7.0 millimeters from the OI and LIRc 4.00 millimeters (keeping in a temporally transposed position). Currently in 6 Base out prism glasses still getting binocular blurring unclear if distinct diplopia (definitely has 2 images with glasses off). With glasses on, gets binocular shadowing that goes away with monocular closure. Interested in surgery if eyes are still misaligned. documented in this encounter Plan of Treatment Not on filedocumented as of this encounter Procedures Procedure Name Priority Date/Time Associated Diagnosis Comme nts SENSORIMOTOR Routine 05/05/2018 8:10 AM Sixth nerve palsy of R esults for this CDT both eyes procedure are i n the results section . documented in this encounter Results Sensorimotor (05/05/2018 8:10 AM CDT) Narrative Lise Mcqueen MD - 05/05/2018 8:10 AM CDT Performed by: THANH Jacob . Patient cooperation: Reliable . Reliability of the test: Good . Test Findings: Strabismus . Interpretation: 6th nerve palsy . Plan: Glasses . Interval: Better . Lise Mcqueen MD OPHTHALMOLOGY documented in this encounter Visit Diagnoses Diagnosis Sixth nerve palsy of both eyes - Primary Paralytic strabismus, sixth or abducens nerve palsy Diplopia Left homonymous hemianopsia Homonymous bilateral field defects in vi sual field Alternating esotropia Hypertropia of right eye documented in this encounter Care Teams Bead Machine Operator Relationship Specialty Start Date End Date Mar Alfaro PCP - General 05/31/17 [facility] [address] [place] [address] Jeremy Gibbs MD MD Ophthalmology 12/10/14 Jose Monahan MD MD Ophthalmology 12/10/14 Lise Mcqueen MD MD Ophthalmology 05/31/17 [address] [facility] [address] [address] documented as of this encounter
--- OUTSIDE RECORDS SUMMARY | 2022-06-13 21:40 | XMS_ITS | Encounter Summary ---
:1975 Author Organization [facility] Address [address] [place] [address]. [place] [address] Care Team Providers Name Role Phone Jeremy Gibbs MD Unavailable Jose Monahan MD Unavailable Lise Mcqueen MD Unavailable [phone] Mar Alfaro Primary Care Provider Reason for Visit Auth/Cert Specialty Diagnoses / Procedures Referred By Contact Refer red To Contact Surgery Diagnoses Strabismus, Diplopia, Alternating Esotropia, Hypertropia Ur Periop Procedures RECESSION RESECTION (REPAIR STRABISMUS) BILATERAL [address] [place] [address] Phone: Fax: Referral ID Status Reason Start Date Expiration Date Visits Requ ested Visits Authorized [id number] 1 1 Encounter Details Date Type Department Care Team Description 08/10/2017 Hospital Encounter UR PACU [place], Postoperative eye [address] [facility] (Primary Dx) [place], [place] [address] [address] [address] [facility] [phone] [place], [place] [id number] Social History Tobacco Use Types Packs/Day Years Used Date Smoking Tobacco: Every Day Cigarettes 0.3 2 Smokeless Tobacco: Never Alcohol Use Standard Drinks/Week Comments Yes 0 (1 standard drink = 0.6 oz pure alcoho l) occasional Sex Assigned at Date Recorded Not on file documented as of this encounter Last Filed Vital Signs Vital Sign Reading Time Taken Comments Blood Pressure 109/65 08/10/2017 5:00 PM TREASURY ACCOUNTANT Pulse - - Temperature 36.8 ??C (98.2 ??F) 08/10/2017 5:00 PM TREASURY ACCOUNTANT Respiratory Rate 16 08/10/2017 4:00 PM TREASURY ACCOUNTANT Oxygen Saturation 96% 08/10/2017 5:21 PM TREASURY ACCOUNTANT Inhaled Oxygen Concentration - - Weight 85.1 kg (187 lb 9.8 oz) 08/10/2017 10:05 AM TREASURY ACCOUNTANT Height 157.5 cm (5' 2) 08/10/2017 10:05 AM TREASURY ACCOUNTANT Body Mass Index 34.31 08/10/2017 10:05 AM TREASURY ACCOUNTANT documented in this encounter Discharge Instructions Discharge [...] to arrange follow-up in 1-2 weeks. ?? Pranay: Binh Patrick at or our front end manager at ?? Gate: [phone] [facility] Adult Discharge Orders & Instructions [...] resolve slowly over 2- 4 weeks. ??? [place] tinged tears ??? Swollen, painful or itchy [...] as discussed with Dr. Mcqueen. Rev. 10/2013 SURY ACCOUNTANT documented in this encounter Medications at Time of Discharge Medication Sig Dispensed Refills Start Date End Date BuPROPion HCl (WELLBUTRIN Take 300 mg by mouth 0 XL PO)Indications: NOT TAKING CLONAZEPAM PO Take 0.5 mg by mouth 0 2 times daily as needed for anxiety (or sleep) Fish Oil-Cholecalciferol Take 1 capsule by 0 (FISH OIL + D3) [id number] mouth daily MG-UNIT CAPSIndications: NOT TAKING FLUoxetine [...] PM CST Report to Nadiya Powell RN SURY ACCOUNTANT Roseline Mcqueen RN - 08/09/2017 1:56 PM CST Called pt's cell phone (also home #) which goes straight to . Left message with surgery time change and new arrival and NPO times. SURY ACCOUNTANT documented in this encounter Miscellaneous Notes Op [...] of 4.0 mm. SURGEON: Lise Mcqueen MD SURGICAL GARMENT INSPECTOR: Jeremy Michel MD ESTIMATED BLOOD LOSS: 1 [...] rectus muscle was hooked using small and Sergo hooks. The [place] was carefully di ssected [...] muscle was carefully hooked using small and Commerce hooks. This was in a temporally transposed [...] MD MT: tamiko Name: KEY PERES Account: [id number] : 1975 Procedure Date: 08/10/2017 Document: [id number] SURY ACCOUNTANT Brief Op Note - Jeremy Michel MD - 08/10/2017 1:40 PM CST [facility] Brief Operative Note Pre-operative diagnosis: Strabismus, Diplopia, Alternating Esotropia, Hypertropia Post-operative diagnosis Same Procedure: Procedure(s): Left Strabismus Repair - Wound Class: I-Clean Surgeon: Dr. Lise Mcqueen Assistants(s): Dr. Jeremy Michel Estimated blood loss: Minimal Specimens: None Findings: As expected Jeremy Michel MD Ophthalmology, PGY-3 SURY ACCOUNTANT documented in this encounter Plan of Treatment Not on filedocumented as of this encounter Procedures Procedure Name Priority Date/Time Associated Diagnosis Comme nts SIMPLE RECESSION OR 08/10/2017 11:27 AM Strabismus, Di plopia, RESECTION, MUSCLE, TREASURY ACCOUNTANT Alternating Esotropia, EXTRAOCULAR, BILATERAL, Hypertropia FOR STRABISMUS CORRECTION Special Needs [facility] CALLPt request s Post op RX for nausea from Dr. Mcqueen HCG QUALITATIVE URINE STAT 08/10/2017 10:25 AM TREASURY ACCOUNTANT Results for this procedure are in the resu lts section. GLUCOSE BY METER Routine 08/10/2017 10:12 AM TREASURY ACCOUNTANT Results for this procedure are in the resu lts section. documented in this encounter Results HCG qualitative urine (08/10/2017 10:25 AM TREASURY ACCOUNTANT) Analysis Performed At Patho logist Time Signature HCG Qual Urine Negative NEG^Negati 08/10/2017 [facility] 10:50 AM TREASURY ACCOUNTANT [facility] Comment: This test is for screening purposes. ??R esults should be interpreted along with the clinical picture. ??Confirmation te sting is available if warranted by ordering [id number], HCG Quantitative Pregna ncy. Specimen Anatomical Collection Method Collection Time Receive d Time (Source) Location / / Volume Laterality Urine specimen URINE SPECIMEN 08/10/2017 10:25 018 (specimen) OBTAINED BY CLEAN AM TREASURY ACCOUNTANT 10:[address] CATCH PROCEDURE / Unknown Dontae Lazo MD LAB - URINE ORDERABLES Performing Organization Address City/State/ZIP Code Phon e Number [facility] [address] [place] [address] [facility] (ABNORMAL) Glucose by meter (08/10/2017 10:12 AM TREASURY ACCOUNTANT) P athologist Signature Glucose 106 (H) 70 - 99 08/10/2017 POINT OF CARE mg/dL 10:15 AM TREASURY ACCOUNTANT TEST, GLUCOSE Specimen Anatomical Collection Method Collection Time Receive d Time (Source) Location / / Volume Laterality 08/10/2017 10:12 08/10/2017 AM TREASURY ACCOUNTANT 10:15 AM TREASURY ACCOUNTANT Lise Mcqueen MD LAB - BEAKER POCT Performing Organization Address City/State/ZIP Code Phon e Number [facility] POINT OF CARE TEST, GLUCOSE POINT OF CARE TEST, GLUCOSE documented in this encounter Visit Diagnoses Diagnosis Postoperative eye state - Primary Other states following surgery of eye an d adnexa documented in this encounter Administered Medications Inactive Administered Medications - up to 3 most recent administrations Medication Order MAR Action Action Date Dose Rate Site acetaminophen (TYLENOL) tablet Given 08/10/2017 10:51 AM TREASURY ACCOUNTANT 1,0 00 mg 1,000 mg 1,000 mg, Oral, ONCE, On Tue08/10/17 at 1015, For 1 dose, Maximum acetaminophen dose from all sources = 75 mg/kg/day not to exceed 4 gram, Pre-procedure BSS ophthalmic solution Given 08/10/2017 12:13 PM 1 applicator Operativ e PRN, Starting on Tue TREASURY ACCOUNTANT Site /Surgical Site 08/10/17 at 1213, Intra-procedure dexamethasone (DECADRON) injection 6 mg 6 mg, Intravenous, EVERY 10 MIN PRN, favio sea, Administer over 1 Minutes, Starting on Tue08/10/17 at 1342, For 1 dose, For ordered doses up t o 20 mg, give IV Push undiluted over 1 minute., PACU/Phase II HYDROmorphone (PF) (DILAUDID) injection 0.2 Given 08/10/2017 4:20 PM TREASURY ACCOUNTANT 0.2 mg mg 0.2 mg, Intravenous, EVERY [...] administer as Given 08/10/2017 3 :26 PM TREASURY ACCOUNTANT 1 tablet ordered by surgeon for take home use CONTINUOUS PRN, Starting on Tue08/10/17 at 1407, Until Tue08/10/17 at 1934, May administer oral pain medications as ordered by surgeon for take home use. Discontinue IV pain medication prior to administration of oral pain medication., PACU/Phase II oxymetazoline (AFRIN) 0.05 Given 08/10/2017 12:13 PM 1 spray Operative Site/Surgical % spray TREASURY ACCOUNTANT Site PRN, Starting on Tue08/10/17 at 1213, Intra-procedure scopolamine (TRANSDERM) 72 Given 08/10/2017 10:52 AM TREASURY ACCOUNTANT 1 patch Behind Right Ear hr patch 1 patch 1 patch, Transdermal, ONCE, On Tue08/10/17 at 1015, For 1 dose, Each 1.5 mg patch delivers 1 mg of scopolamine., Pre-procedure documented in this encounter Active and Recently Administered Medications Times are shown in TREASURY ACCOUNTANT. Scheduled Medication Order 08/08/2017 08/09/2017 08/10/2017 acetaminophen (TYLENOL) tablet 1,000 mg (COMPLETED) 1051 (Given - Provider: Angélica Mondragon RN - Comment: total dose charted) 1,000 mg, [...] - Provider: Lise Mcqueen MD) PRN, Starting 08/10/17 at 1213, Intra-procedure dexamethasone (DECADRON) injection [...] Intravenous, EVERY 10 MIN PRN, S tarting 08/10/17 at 1407, Until Tue08/10/17 at 1934, other, [...] Minutes, Starting 08/10/17 at 1407, For 2 doses, MAX total [...] miting, Starting 08/10/17 at 1407, For 2 doses, MAX total [...] Administer over 2-5 Minutes, Starting Tue08/10/17 at 1342, For 2 doses
[...] miting, Starting Tue08/10/17 at 1407, For 2 doses
MAX total [...] Minutes, Starting Tue08/10/17 at 1407, For 2 doses
MAX total dose = 8 mg, including OR dosing. This is step 1 of nausea and vomiting management. If not resolved in 15 minutes, then go to step 2 [prochlorperazine (COMPAZINE) if ordered]. Irritant. For ordered doses up to 4 mg, give IV Push undiluted over 2-5 minutes.
PACU/Phase II documented in this encounter Care Teams Functional Director Relationship Specialty Start Date End Date Mar Alfaro PCP - General 05/31/[address] [facility] [address] [place] [address] Jeremy Gibbs MD MD Ophthalmology 12/10/14 Jose Monahan MD MD Ophthalmology 12/10/14 Lise Mcqueen MD MD Ophthalmology 05/31/[address] [place] [address] documented as of this encounter
--- OUTSIDE RECORDS SUMMARY | 2022-06-13 21:40 | XMS_ITS | Encounter Summary ---
:1975 Author Organization [facility] Address [address] [place] [address]. [place] [address] Care Team Providers Name Role Phone Teresa Vaughan Primary Care Provider Montana Meyer MD Unavailable Jeremy Gibbs MD Unavailable Jose Monahan MD Unavailable Reason for Visit Reason Comments Diplopia Follow Up h/o TBI, patient notes const ant diplopia, patient feels nausous often has difficulty riding in a car or watching TV, wears glasses with prism time signal wirer Encounter Details Date Type Department Care Team Description 02/13/[address] [facility] Eye Adult Double Montana Meyer, Alt ernating esotropia (Primary Dx); Vision Sixth nerve palsy of both eyes; [address] [facility] Subjective visual disturbance; [address] Floor, [address] [place] [address] [place] [address] [phone] Social History Tobacco Use Types Packs/Day Years Used Date Smoking Tobacco: Every Day Cigarettes 0.3 2 Smokeless Tobacco: Never Alcohol Use Standard Drinks/Week Comments Yes 0 (1 standard drink = 0.6 oz pure alcoho l) occasional Sex Assigned at Date Recorded Not on file documented as of this encounter Patient Instructions Patient InstructionsBoMontana grande MD - 02/13/2015 11:59 AM CDT Conservative care with prism. Monitor visional functioning and the baseline alignment of the eyes until your next clinic visit. Ifyou have concerns or see changes in functioning, please contact my office. A sooner reassessment by my orthoptic team or me may be necessary. documented in this encounter Progress Notes Montana Meyer MD - 02/13/2015 12:00 PM CDT Chief Complaints and History of Present Illnesses Patient presents with ??? Diplopia Follow Up h/o TBI, patient notes constant diplopia, patient feels nausous often has difficulty riding in a car or watching TV, wears glasses with prism time signal wirer Review of systems for the eyes was [...] 2014) S/P right superior rectus recession (November,) A small angle strabismus remains and will be watched. The vertical deviation did not meaningfully improve and a tiny esotropia has come back. The etiology for the ongoing diplopia is likely poor fusion from the brain injury. Left hypoptropia (present prior to transposition) I [...] checkout. Return in about 6 months (around 08/16/2015). Unless surgery is desired. Attending Physician Attestation: [...] Diagnosis Comme nts HC FRESNELL PRISM Routine 02/13/2015 11:35 AM Alternating esot ropia PRESS-ON LENS CDT documented in this encounter Visit Diagnoses Diagnosis Alternating esotropia - Primary Sixth nerve palsy of both eyes Paralytic strabismus, sixth or abducens nerve palsy Subjective visual disturbance Subjective visual disturbance, unspecifi ed Left homonymous hemianopsia Homonymous bilateral field defects in vi sual field documented in this encounter Care Teams Appliance Service Technician Relationship Specialty Start Date End Date Teresa Vaughan PCP - General Family Practice 05/29/13 05/30/17 [facility] [address] [place] [address] Montana Meyer MD MD Ophthalmology 12/10/14 05/30/17 [facility] [address] [place] [address] Jeremy Gibbs MD MD Ophthalmology 12/10/14 Jose Monahan MD MD Ophthalmology 12/10/14 documented as of this encounter
--- OUTSIDE RECORDS SUMMARY | 2022-06-13 21:40 | XMS_ITS | Encounter Summary ---
:1975 Author Organization [place] Address [facility] [place] [address] Care Team Providers Name Role Phone Jeremy Gibbs MD Unavailable Jose Monahan MD Unavailable Lise Mcqueen MD Unavailable [phone] Mar Alfaro Primary Care Provider Encounter Details Date Type Department Care Team Description 06/17/2017 Documentation Only [facility] Geri Rodriguez, Clinic Peds Eye [place] [address] [place] [address] [place] [facility] [address] [place] [address] [phone] Social History Tobacco Use Types Packs/Day Years Used Date Smoking Tobacco: Every Day Cigarettes 0.3 2 Smokeless Tobacco: Never Alcohol Use Standard Drinks/Week Comments Yes 0 (1 standard drink = 0.6 oz pure alcoho l) occasional Sex Assigned at Date Recorded Not on file documented as of this encounter Progress Notes [employer] - 06/17/2017 8:36 AM CST Spoke with Key. She found her older lenses and will put these in her frames. She still noted headaches and eye strain with the new glasses, tried them for over 2 weeks. She is still scheduled for surgery and has a pair of gls without prisms to possibly wear after that. She would like Dr. Mcqueen to know what is happening with her prism glasses and wanted to make sureshe could wear her older glasses. I told her it was fine, we don't want her to have daily headaches. RVENTIONAL TECH documented in this encounter Plan of Treatment Not on filedocumented as of this encounter Visit Diagnoses Not on filedocumented in this encounter Care Teams Greenhouse Worker Relationship Specialty Start Date End Date Mar Alfaro PCP - General 05/31/17 [facility] [address] [place] [address] Jeremy Gibbs MD MD Ophthalmology 12/10/14 Jose Monahan MD MD Ophthalmology 12/10/14 Lise Mcqueen MD MD Ophthalmology 05/31/[address] [place] [id number] documented as of this encounter
--- OUTSIDE RECORDS SUMMARY | 2022-06-13 21:40 | XMS_ITS | Encounter Summary ---
:1975 Author Organization [place] Address [address] [place] [address]. [place] [address] Care Team Providers Name Role Phone RochellelauroTeresa martinez Primary Care Provider Montana Meyer MD Unavailable Jeremy Gibbs MD Unavailable Jose Monahan MD Unavailable Reason for Visit Reason Comments Diplopia Follow Up Encounter Details Date Type Department Care Team Description 06/30/2016 Office Visit [facility] Antione Andre Diplopia (Primary Dx) Clinic [facility] MD Buddy [address] Clin 9A [phone] [place], [place] (Work) [address] [phone] Social History Tobacco Use Types Packs/Day Years Used Date Smoking Tobacco: Every Day Cigarettes 0.3 2 Smokeless Tobacco: Never Alcohol Use Standard Drinks/Week Comments Yes 0 (1 standard drink = 0.6 oz pure alcoho l) occasional Sex Assigned at Date Recorded Not on file documented as of this encounter Progress Notes Antione Andre MD - 07/05/2016 3:58 PM CST 1. 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 - S/P bilateral medial rectus recession and left superior rectus transposition augmentation (August 2014) - S/P right superior rectus recession (November,) - she suppresses frequently under binocular conditions thus fitting with prisms becomes complex since it is unclear at times whether she fuses with prisms or suppresses Follow-up with Dr. Gibbs KE OFF MACHINE OPERATOR documented in this encounter Plan of Treatment Not on filedocumented as of this encounter Procedures Procedure Name Priority Date/Time Associated Diagnosis Comme nts SENSORIMOTOR Routine 07/05/2016 3:58 PM Diplopia Results f or this STRIKE OFF MACHINE OPERATOR procedure are i n the results section . documented in this encounter Results Sensorimotor (07/05/2016 3:58 PM STRIKE OFF MACHINE OPERATOR) Narrative Antione Andre MD - 016 3:58 PM STRIKE OFF MACHINE OPERATOR Performed by: giovanny marcus ?? . Patient cooperation: Reliable . History of left homonymous hemianopsia a nd bilateral 6th nerve palsies. Abduction limitation worse L>R. Referred for pelli prisms. . Reliability of the test: Good . Test Findings: Strabismus . Interpretation: Esotropia . Interval: Same . Notes Since patient is strabismic in primary p osition, with limited abduction in the left eye and an excellent ability to ignore the diplopic image, she may not be a pelli prism candidate. Bryanna ent felt prisms only blurred vision, but did not succeed in increasin g her field of view. Explained to patient the purpose behind pelli prisms. She would rather have strabismus surgery. ?? Antione Andre MD OPHTHALMOLOGY documented in this encounter Visit Diagnoses Diagnosis Diplopia - Primary documented in this encounter Care Teams Business Computers Teacher Relationship Specialty Start Date End Date Teresa Vaughan PCP - General Family Practice 05/29/13 05/30/17 [facility] [address] [place] [address] Montana Meyer MD MD Ophthalmology 12/10/14 05/30/17 [facility] [address] [place] [address] Jeremy Gibbs MD MD Ophthalmology 12/10/14 Jose Monahan MD MD Ophthalmology 12/10/14 documented as of this encounter
--- OUTSIDE RECORDS SUMMARY | 2022-06-13 21:40 | XMS_ITS | Encounter Summary ---
:1975 Author Organization [place] Address [address] [place] [address]. [place] [address] Care Team Providers Name Role Phone Teresa Vaughan Primary Care Provider Montana Meyer MD Unavailable Jeremy Gibbs MD Unavailable Jose Monahan MD Unavailable Encounter Details Date Type Department Care Team Description 05/30/2017 Orders Only [facility] Lise Mcqueen Diplopia (Primary Dx); Clinic Peds Eye MD Mary Lou Alternating esotropia; [address] [place] [address] Hypertropia of right eye [facility] [address] [place] [address] [place] [phone] Social History Tobacco Use Types Packs/Day Years Used Date Smoking Tobacco: Every Day Cigarettes 0.3 2 Smokeless Tobacco: Never Alcohol Use Standard Drinks/Week Comments Yes 0 (1 standard drink = 0.6 oz pure alcoho l) occasional Sex Assigned at Date Recorded Not on file documented as of this encounter Plan of Treatment Scheduled Orders Name Type Priority Associated Diagnoses Order S chedule Silvina-Operative Procedures Routine Diplopia Ordered: 05/30/2017 Worksheet 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
--- OUTSIDE RECORDS SUMMARY | 2022-06-13 21:40 | XMS_ITS | Encounter Summary ---
:1975 Author Organization [place] Address [address] [place] [address] Care Team Providers Name Role Phone Teresa Vaughan Lyla Primary Care Provider Reason for Visit Auth/Cert - Closed Specialty Diagnoses / Procedures Referred By Contact Refer red To Contact Surgery Diagnoses Strabismus Ur Periop Procedures RECESSION RESECTION (REPAIR STRABISMUS) BILATERAL [address] [place] [address] Phone: Fax: Referral ID Status Reason Start Date Expiration Date Visits Requ ested Visits Authorized [id number] Closed 1 1 Encounter Details Date Type Department Care Team Description 11/26/2014 Hospital Encounter UR PACU Ricardo Meyerick Postoperative eye 24[address] Christopher Arita MD pending sale to [facility] (Primary Dx) [place] [address] [address] [place], [place] [phone] Social History Tobacco Use Types Packs/Day Years Used Date Smoking Tobacco: Every Day Cigarettes 0.3 2 Smokeless Tobacco: Never Alcohol Use Standard Drinks/Week Comments Yes 0 (1 standard drink = 0.6 oz pure alcoho l) occasional Sex Assigned at Date Recorded Not on file documented as of this encounter Last Filed Vital Signs Vital Sign Reading Time Taken Comments Blood Pressure 120/76 11/26/2014 2:00 PM CDT Pulse - - Temperature 36.6 ??C (97.9 ??F) 11/26/2014 2:00 PM CDT Respiratory Rate 16 11/26/2014 2:00 PM CDT Oxygen Saturation 96% 11/26/2014 2:00 PM CDT Inhaled Oxygen Concentration - - Weight 75.7 kg (166 lb 14.2 oz) 11/26/2014 9:00 AM CDT Height 157.5 cm (5' 2) 11/26/2014 9:00 AM CDT Body Mass Index 30.52 11/26/2014 9:00 AM CDT documented in this encounter Discharge Instructions Discharge InstructionsAbby Quintero RN - 11/26/2014 1:37 PM CDT Please [...] already, pleasecall Binh Patrick at or our director of front office at and arrange to follow-up. Please call [phone] For postop eye concerns including discharge, eye [...] To contact a doctor, call or: ??? [phone] and ask for the Resident Cad Designer for: (answered 24 hours a day) ??? Emergency Department: [facility]: [phone] [facility]: [phone] [facility] Department: [phone] Rev. 05/2014 Dr John Meyer, Dr. Dr. Uzair Bloom Areaux Strabismus Repair Discharge Instructions Your eye doctor [...] resolve slowly over 2- 4 weeks. ??? [place] tinged tears ??? Swollen, painful or itchy [...] daily as needed for anxiety (or sleep) [id number] Place 1 drop into 1 mL 0 12/01/2014 hasone (MAXITROL) the right eye 4 [id number] times daily for 5 SUSPIndications: days Postoperative [...] recession 4.0 mm SURGEON: Montana Meyer MD COMPUTER FORWARDING SYSTEM MARKUP CLERK: Chanel Grant MD IMPLANTS: None COMPLICATIONS: None [...] Grant MD - 11/26/2014 11:43 AM CDT [facility] Brief Operative Note Pre-operative diagnosis: Strabismus Post-operative [...] CORRECTION documented in this encounter Visit Diagnoses Diagnosis Postoperative eye state - Primary Other states following surgery of eye an d adnexa documented in this encounter Administered Medications Inactive Administered Medications - up to 3 most recent administrations Medication Order MAR Action Action Date Dose Rate Site HYDROcodone-acetaminophen Given 11/26/2014 2:00 PM CDT 1 tablet (NORCO) 5-325 MG per tablet 1 tablet 1 tablet, Oral, [...] cumulative dose = 2 mg, PACU/Phase II Scopolamine (TRANSDERM) 1 Given 11/26/2014 10:34 AM [...] RN) 0.3-0.5 mg, Intravenous, EVERY 10 MIN MI N, Starting 11/26/14 at 1210, Until 11/26/14 at 1619, moderate to severe pain, acute pain.?May administer if RR is > 10 , PACU/Phase II, If fentanyl i s also ordered, use HYDROmorphone if [place] n control insufficient with fentanyl or a longer acting agent is needed. Max cumulative dose = 2 mg lidocaine injection 2% (MDV) (CANCELED) 1140 (Given - Provider: Montana Meyer MD) PRN, Starting 11/26/14 at 1140, Intra-procedure oxymetazoline (AFRIN) 0.05 % nasal spray (CANCELED) 1055 (Given - Provider: Maggie Page, LIZZ)1100 (Given - Provider: Maggie Page, RN) PRN, Starting 11/26/14 at 1055, Intra-procedure documented in this encounter Care Teams Network Planner Relationship Specialty Start Date End Date Teresa Vaughan PCP - General Family Practice 05/29/13 05/30/17 [facility] [address] [place] [address] documented as of this encounter
--- OUTSIDE RECORDS SUMMARY | 2022-06-13 21:40 | XMS_ITS | Encounter Summary ---
:1975 Author Organization [place] Address [address] [place] [address]. [place] [address] Care Team Providers Name Role Phone Teresa Vaughan Lyla Primary Care Provider Reason for Visit Reason Comments Post Op (Ophthalmology) Right Eye RSRc 4.0mm, + consta nt diplopia sc, + diplopia notes vertical and horizonta l, fresnel helps diplopia, with fresnel on gl s vision in left gaze appears cloudy, no current e ye pain,+ dizzy / unstable, redness decreasing since surgery, +dry, + itching Encounter Details Date Type Department Care Team Description 12/09/2014 Office Visit [facility] Eye Adult Double Montana Meyer, Alt ernating esotropia (Primary Dx); Vision MD Sixth nerve palsy of both eyes; [address] [place] [address] Subjective visual disturbance; [address] Floor, [address] [place] [address] Paralytic strabismus, sixth or abducens nerve palsy, bilateral; [place], [place] Left homony mous hemianopsia [address] [phone] Social History Tobacco Use Types Packs/Day Years Used Date Smoking Tobacco: Every Day Cigarettes 0.3 2 Smokeless Tobacco: Never Alcohol Use Standard Drinks/Week Comments Yes 0 (1 standard drink = 0.6 oz pure alcoho l) occasional Sex Assigned at Date Recorded Not on file documented as of this encounter Patient Instructions Patient InstructionsBoMontana grande MD - 12/11/2014 7:37 AM CDT Wear prism to foster fusional potential. Monitor visional functioning and the baseline alignment of the eyes until your next clinic visit. Ifyou have concerns or see changes in functioning, please contact my office. A sooner reassessment by my orthoptic team or me may be necessary. documented in this encounter Progress Notes Montana Meyer MD - 12/11/2014 7:38 AM CDT Chief Complaints and History of Present Illnesses Patient presents with ??? Post Op (Ophthalmology) Right Eye RSRc 4.0mm, + constant diplopia sc, + diplopia notes vertical and horizontal, fresnel helps diplopia, with fresnel on gls vision in left gaze appears cloudy, no current eye pain,+ dizzy / unstable, redness decreasing since surgery, +dry, + itching Review of systems for the eyes was [...] the patient at checkout. Return in about 4 weeks (around 01/06/2015) for Orthoptic clinic and 2 months with me.. Unless surgeryis desired. Attending Physician Attestation: I have seen [...] visual disturbance Subjective visual disturbance, unspecifi ed Paralytic strabismus, sixth or abducens nerve palsy, bilateral Left homonymous hemianopsia Homonymous bilateral field defects in vi sual field documented in this encounter Care Teams Proof Inspector Relationship Specialty Start Date End Date Teresa Vaughan PCP - General Family Practice 05/29/13 05/30/[address] [address] documented as of this encounter
--- OUTSIDE RECORDS SUMMARY | 2022-06-13 21:40 | XMS_ITS | Encounter Summary ---
:1975 Author Organization [place] Address [facility] [place] [address] Care Team Providers Name Role Phone Teresa Vaughan Primary Care Provider Montana Meyer MD Unavailable Jeremy Gibbs MD Unavailable Jose Monahan MD Unavailable Lise Mcqueen MD Unavailable [phone] Mar Alfaro Primary Care Provider Reason for Visit Reason Onset Date Comments Schedule Surgery 05/23/2017 Encounter Details Date Type Department Care Team Description 05/23/2017 Telephone [facility] Lise Mcqueen [facility] Surgery Peds Eye MD Mary Lou [address] [place] [address] [phone] [place], [place] [phone] (Wo rk) Social History Tobacco Use Types [...] on filedocumented in this encounter Care Teams Worksite Wellness Practitioner Relationship Specialty Start Date End Date Teresa Vaughan PCP - General Family Practice 05/29/13 05/30/[address] [address] Mar Alfaro PCP - General 05/31/17 [facility] [address] [place] [address] Montana Meyer MD MD Ophthalmology 12/10/14 05/30/17 [facility] [address] [place] [address] Jeremy Gibbs MD MD Ophthalmology 12/10/14 Jose Monahan MD MD Ophthalmology 12/10/14 Lise Mcqueen MD MD Ophthalmology 05/31/17 [address] [facility] [address] [place] [address] documented as of this encounter
--- OUTSIDE RECORDS SUMMARY | 2022-06-13 21:40 | XMS_ITS | Encounter Summary ---
:1975 Author Organization [place] Address [facility] [place] [address] Care Team Providers Name Role Phone Teresa Vaughan Lyla Primary Care Provider Montana Meyer MD Unavailable Jeremy Gibbs MD Unavailable Jose Monahan MD Unavailable Encounter Details Date Type Department Care Team Description 01/11/2016 Telephone [facility] Pippa Kimbrough RN [address] [place] [address] Social History Tobacco Use Types Packs/Day Years Used Date Smoking Tobacco: Every Day Cigarettes 0.3 2 Smokeless Tobacco: Never Alcohol Use Standard Drinks/Week Comments Yes 0 (1 standard drink = 0.6 oz pure alcoho l) occasional Sex Assigned at Date Recorded Not on file documented as of this encounter Miscellaneous Notes Telephone Encounter - Pippa Kimbrough RN - 01/11/2016 5:33 PM CDT Call Type: Triage Call Presenting Problem: I wanted to cancel an appointment for tomorrow....I did not want to get charged because I really need to cancel it... Caller informed that she will need to call [facility] in the morning to cancel since their scheduling department is closed. Caller agreeable to plan. Triage Note: Guideline Title: Information Only Call; No Symptom Triage (Adult) Recommended Disposition: Provide Information or Advice Only Original Inclination: Wanted to speak with a nurse Override Disposition: Intended Action: Follow advice given Physician Contacted: No Follow-up call to recent contact; no triage required. Information provided from past call documentation, approved references or experience. ? YES Requesting regular office appointment ? NO Sign(s) or symptom(s) associated with a diagnosed condition or with a new illness ? NO Requesting information about provider, services or community resources ? NO Call back to complete assessment/clarification of information from prior caller to complete triage ? NO Requesting information and provider is best resource; no triage required. ? NO Caller not with patient and is unable to provide clinical information about patient to facilitate triage. ? NO Requesting provider information for recently scheduled test, procedure; no triage required. Needed information not available per approved resources or clinical experience. ? NO Requesting information not available per approved reference or clinical experience; no triage required. ? NO Requesting information regarding scheduled exam, test or procedure; no triage required. Information provided from approved resources or clinical experience. ? NO General information question; no triage required. Information provided from approved references or knowledge of organization. ? NO Health information question; person denies any symptoms, no triage required. Information provided from approved references or clinical experience. ? NO Physician Instructions: Care Advice: documented in this encounter Plan of Treatment Not on filedocumented as of this encounter Visit Diagnoses Not on filedocumented in this encounter Care Teams Sleeve Tailor Relationship Specialty Start Date End Date Teresa Vaughan PCP - General Family Practice 05/29/13 05/30/17 [facility] [address] [place] [address] Montana Meyer MD MD Ophthalmology 12/10/14 05/30/17 [facility] [address] [place] [address] Jeremy Gibbs MD MD Ophthalmology 12/10/14 Jose Monahan MD MD Ophthalmology 12/10/14 documented as of this encounter
--- OUTSIDE RECORDS SUMMARY | 2022-06-13 21:41 | XMS_ITS | Encounter Summary ---
:1975 Author Organization [place] Address [address] [place] [address] Care Team Providers Name Role Phone Unavailable Primary Care Provider Unavailable Reason for Visit Reason Onset Date Comments Other 02/13/2004 Patient is dismissed from clinic as of 03-04-04. Encounter Details Date Type Department Care Team Description 02/13/2004 Telephone [facility] None, [facility] Other (Veda vallesnt is dismissed Physicians from clinic as of 03-04-04. [address] [place] [address] ) [address] [place] [address] Social History Tobacco Use Types Packs/Day Years Used Date Smoking Tobacco: Every Day Cigarettes 0.3 2 Alcohol Use Standard Drinks/Week Comments Yes 0 (1 standard drink = 0.6 oz pure alcoho l) occasional Sex Assigned at Date Recorded Not on file documented as of this encounter Miscellaneous Notes Telephone Encounter - 02/13/2004 1:02 PM CDT >> JOHN KYLE [facility] Feb 20, 2004 1:32 PM >> CALL RECEIVED. Contact: done >> UMA HANLEY [facility] Feb 13, 2004 1:03 PM No appts, referrals or Rx refills after 03-04-04. Please remove patient from health maintenance as well as cancel any standing orders in [facility]. 30 day letter was returned Unclaimed. If patient callsto make appt, we will rescind the dismissal due to the fact that the certified letter was nev er received. documented in this encounter Plan of Treatment Not on filedocumented as of this encounter Visit Diagnoses Not on filedocumented in this encounter
--- OUTSIDE RECORDS SUMMARY | 2022-06-13 21:41 | XMS_ITS | Encounter Summary ---
:1975 Author Organization [place] Address [address] [place] [address] Care Team Providers Name Role Phone Teresa Vaughan Primary Care Provider Montana Meyer MD Unavailable Jeremy Gibbs MD Unavailable Jose Monahan MD Unavailable Lise Mcqueen MD Unavailable Mar Alfaro Primary Care Provider Lise Mcqueen MD Unavailable [phone] Jonh Garcia MD Unavailable Encounter Details Date Type Department Care Team Description 07/03/2013 Records - [facility] Diagnostic Imaging [address] [place] [phone] Social History Tobacco Use Types Packs/Day Years [...] Priority Date/Time Associated Diagnosis Comme nts XR VIDEO SWALLOW Routine 07/03/2013 12:00 AM Resu lts for this WITH HEALTH TEACHER OR OT SUPERVISOR POLISHING procedure are in the results section. documented in this encounter Results XR Video Swallow with HEALTH TEACHER or OT (07/03/2013 12:00 AM SUPERVISOR POLISHING) Anatomical Region Laterality Modality Other Specimen (Source) Anatomical Location Collection Method / Collectio n Time Received Time / Laterality Volume Narrative 07/03/2013 12:00 AM SUPERVISOR POLISHING See Historical Hospital Medical Record f or documentation Procedure Note Provider, Historical - 01/10/2021Formatt ing of this note might be different from the original. See Historical Hospital Medical Record f or documentation Historical Provider IMG DIAGNOSTIC IMAGING ORDER ESTHER documented in this encounter Visit Diagnoses Not on filedocumented in this encounter Care Teams Kettle Worker Relationship Specialty Start Date End Date Teresa Vaughan PCP - General Family Practice 05/29/13 05/30/17 [facility] [address] [place] [address] Mar Alfaro PCP - General 05/31/17 [facility] [address] [place] [address] Montana Meyer MD MD Ophthalmology 12/10/14 05/30/17 [facility] [address] [place] [address] Jeremy Gibbs MD MD Ophthalmology 12/10/14 Jose Monahan MD MD Ophthalmology 12/10/14 Lise Mcqueen MD Ophthalmology 05/31/17 [address] [facility] [address] [place] [phone] Lise Mcqueen, Assigned Surgical Provider 10/11/[address] [facility] [address] [place] [phone] Jonh Garcia MD Assigned Surgical Provider 10/12/[address] [place] [address] documented as of this encounter
--- OUTSIDE RECORDS SUMMARY | 2022-06-13 21:41 | XMS_ITS | Encounter Summary ---
:1975 Author Organization [facility] Address [address] [place] [address] Care Team Providers Name Role Phone Teresa Vaughan Primary Care Provider Reason for Visit Auth/Cert - Closed Specialty Diagnoses / Procedures Referred By Contact Refer red To Contact Surgery Diagnoses Strabismus Ur Periop Procedures RECESSION RESECTION (REPAIR STRABISMUS) BILATERAL [address] [place] [address] Phone: Fax: Referral ID Status Reason Start Date Expiration Date Visits Requ ested Visits Authorized [id number] Closed 1 1 Encounter Details Date Type Department Care Team Description 08/13/2014 Hospital Encounter UR PACU [place], [place] Sixth nerve palsy of 2450 Lyla Ashford MD both eyes (Primary [facility] Dx) [place], [place] [address] [address] [place], [place] [phone] Social History Tobacco Use Types Packs/Day Years Used Date Smoking Tobacco: Every Day Cigarettes 0.3 2 Smokeless Tobacco: Never Alcohol Use Standard Drinks/Week Comments Yes 0 (1 standard drink = 0.6 oz pure alcoho l) occasional Sex Assigned at Date Recorded Not on file documented as of this encounter Last Filed Vital Signs Vital Sign Reading Time Taken Comments Blood Pressure 116/82 08/13/2014 11:16 AM IT SALES EXECUTIVE Pulse - - Temperature 36.9 ??C (98.5 ??F) 08/13/2014 11:16 AM IT SALES EXECUTIVE Respiratory Rate 9 08/13/2014 11:16 AM IT SALES EXECUTIVE Oxygen Saturation 95% 08/13/2014 11:16 AM IT SALES EXECUTIVE Inhaled Oxygen Concentration - - Weight 66.8 kg (147 lb 4.3 oz) 08/13/2014 6:34 AM IT SALES EXECUTIVE Height 157.5 cm (5' 2) 08/13/2014 6:34 AM IT SALES EXECUTIVE Body Mass Index 26.94 08/13/2014 6:34 AM IT SALES EXECUTIVE documented in this encounter Discharge Instructions Discharge InstructionsBree Andres RN - 08/13/2014 10:44 AM CST Please feel free to resume routine activities, [...] already, pleasecall Binh Patrick at or our front desk representative at and arrange to follow-up in 1 week. Please call [phone] For postop eye concerns including discharge, eye [...] To contact a doctor, call or: ??? [phone] and ask for the Resident [employer] for: (answered 24 hours a day) ??? Emergency Department: [facility]: [phone] [facility]: [phone] [facility]: [phone] Rev. 05/2014 SALES EXECUTIVE documented in this encounter Medications at Time of Discharge Medication Sig Dispensed Refills Start Date End Date CLONAZEPAM PO Take 0.5 mg by mouth 0 2 times daily as needed for anxiety (or sleep) erythromycin with ethanol Apply topically 0 08/04/2017 (EMGEL) 2 % gel daily as needed Apply thin layer on face M-W-F HYDROcodone-acetaminophen Take 1 tablet by mouth every 6 hours as needed for moderate to severe pain Please feel free to use this medication for eye pain. 12 tablet 0 08/13/2014 11/25/2014 (NORCO) 5-325 MG per Feel free to supplement or t ransition to over the counter dosing of Motrin (or Ibuprofen). tabletIndications: Sixth Do not drive while under the influence of this medication. nerve palsy of both eyes Methylphenidate HCl Take 20 mg by mouth 0 08/04/2017 (RITALIN PO) 2 times daily Mirtazapine (REMERON PO) Take 15 mg by mouth 0 08/04/2017 daily Multiple 0 08/04/2017 Vitamins-Minerals (MULTIVITAMIN OR) [id number] Apply to both eyes 1 Tube 0 11/25/2014 thasone (MAXITROL) three times a day [id number] OINT for one week. ophthalmic ointmentIndications: Sixth nerve palsy of both eyes nicotine (NICODERM CQ) 21 Place 1 patch onto 0 08/10/2017 MG/24HR patch 2h hr the skin every 24 hours Ondansetron HCl (ZOFRAN Take 1 tablet by 0 08/04/2017 PO) mouth daily as needed documented as of this encounter Nursing Notes Carlos Richardson RN - 08/13/2014 11:[address] Meyer at bedside to talk with patient and parents. Discussed discharge instructions and answered all pt and family questions. SALES EXECUTIVE Carlos Richardson RN - 08/13/2014 11:20 AM CST Pt up to chair, requested to get fully dressed. SPO2 monitor in place, all other monitors unhooked. Pt VSS, states pain is a tolerable level. Drinking and tolerating sips of water. Cold washcloth applied to BL eyes for comfort. SALES EXECUTIVE Bree Andres RN - 08/13/2014 11:10 AM CST Report to Carlos Richardson RN SALES EXECUTIVE Debi Doan RN - 08/13/2014 6:56 AM CST Denies chance of - not sexually active and has IUD in place. SALES EXECUTIVE documented in this encounter Miscellaneous Notes Op Note - [place] Meyer MD - 08/13/2014 9:30 AM CST OPHTHALMOLOGY OPERATIVE REPORT PREOPERATIVE DIAGNOSIS: 1. Residual Esotropia 2. Small left hypotropia 3. Bilateral traumatic CN sixth palsy 4. S/P bilateral superior rectus and inferior rectus transposition temporally. POSTOPERATIVE DIAGNOSIS: Same as preoperative diagnosis PROCEDURE: 1. Forced duction testing both eyes 2. Left superior rectus transposed foster augmentation. 3. Bilateral medial rectus recession 5.0 millimeters 4. Exploration and lysis of adhesions on the left eye from prior surgery to the left superior rectus SURGEON: [place] Meyer MD GLASS CALIBRATOR: None IMPLANTS: None COMPLICATIONS: None ESTIMATED BLOOD LOSS: less than 1 mL IV FLUIDS: Per Anesthesia DETAILS OF THE PROCEDURE: On the day of surgery, [place] Hayes MD, met the patient, Key Peres, in the preoperative holding area with her family. I identified the patient and operative sites and marked them on the preoperative marking sheet. The indications, risks, benefits, and alternatives for the planned procedure were again discussed with the patient and family. I answered their questions, and they [...] typical manner for strabismus surgery. Forced duction showedmild limitation to abduction and trace to elevation on the left. Attention was then turned to the patient's left eye. A temporal conjunctival radial fornix wound wasperformed. The transposed superior rectus was isolated on a small hook and then a large hook. It wasinserted at the superior border of the lateral. Meticulous dissection was performed to delineate from associated Tenon's attachments. The inferior pole of the superior rectus muscle was imbricated at 8.0 millimeters behind the insertion. It was imbricated on the sclara at 8.0 millimeters posterior to the superior aspect of the lateral. Betadine prep was readministered and the conjunctiva repaired with interrupted 8-0 Vicryl suture. Attention was turned to the left medial rectus and an inferonasal fornix wound was fashioned. The medial rectus was isolated on a small hook. This was transferred to a large hook. The conjunctiva and tenons over the muscle was dragged superiorly to expose the tip of the hook. The intramuscular septum was cut and a pole test confirmed the entire muscle was captured. The tenons attachments to the muscle were dissected meticulously anteriorly and posteriorly. The insertion and muscle integrity were healthy. The insertion was imbricated with a double armed, 6-0 Vicryl suture, with locking bites on each muscle pole. The muscle was trimmed off the globe and the insertion stabilized with locking forceps.The muscle was reattached using a crossed swords hang back suture technique at 5.0 millimeters behind the original insertion with a spacing of approximately five millimeters. Betadine prep was readministered topically and the conjunctiva was massaged into placed. No suture was felt necessary. An identical procedure was performed on the fellow eye. A subtenons flush of 2% lido with epi was given on the left eye. The patient was awoken from anesthesia without complication. Dr. Meyer was present for the entire procedure. [place] Meyer MD Survey Compiler Pediatric Ophthalmology & Strabismus Department of Ophthalmology & Visual Neurosciences [facility] SALES EXECUTIVE documented in this encounter Plan of Treatment Not on filedocumented as of this encounter Procedures Procedure Name Priority Date/Time Associated Diagnosis Comme nts SIMPLE RECESSION OR 08/13/2014 8:16 AM IT SALES EXECUTIVE Strabismus RESECTION, MUSCLE, EXTRAOCULAR, BILATERAL, FOR STRABISMUS CORRECTION documented in this encounter Visit Diagnoses Diagnosis Sixth nerve palsy of both eyes - Primary Paralytic strabismus, sixth or abducens nerve palsy documented in this encounter Administered Medications Inactive Administered Medications - up to 3 most recent administrations Medication Order MAR Action Action Date Dose Rate Site HYDROmorphone (PF) (DILAUDID) Given 08/13/2014 10:37 AM IT SALES EXECUTIVE 0.3 mg injection 0.3-0.5 mg 0.3-0.5 mg, Intravenous, EVERY 10 MIN PRN, moderate to severe pain, acute pain.?May administer if RR is > 10 , Starting on 08/13/14 at 0923, If fentanyl is also ordered, use HYDROmorphone if pain control insufficient with fentanyl or a longer acting agent is needed. Max cumulative dose = 2 mg, PACU/Phase II Given 08/13/2014 10:21 AM IT SALES EXECUTIVE 0.3 mg ondansetron (ZOFRAN) injection 4 mg Given 08/13/2014 10:09 AM IT SALES EXECUTIVE 4 mg 4 mg, Intravenous, EVERY 30 MIN PRN, nausea, vomiting, Administer over 2-5 Minutes, Starting on Tue08/13/14 at 0923, For 2 doses, MAX total dose = 8 mg, including OR dosing. This is step 1 of the nausea and vomiting protocol. If not resolved in 15 minutes, then go to step 2 (Prochlorperazine if ordered)., PACU/Phase II documented in this encounter Active and Recently Administered Medications Times are shown in IT SALES EXECUTIVE. PRN Medication Order 08/11/2014 08/12/2014 08/13/2014 balanced salts (BSS) ophthalmic solution (CANCELED) 0856 (Given - Provider: [place] Meyer MD - Comment: Used as irrigation during case) PRN, Starting 08/13/14 at 0856, Intra-procedure HYDROmorphone (PF) (DILAUDID) injection 0.3-0.5 mg (CANCELED) 1021 (Given - Provider: Bree Andres RN)1037 (Given - Provider: Bree Andres RN) 0.3-0.5 mg, Intravenous, EVERY 10 MIN WV N, Starting 08/13/14 at 0923, Until 08/13/14 at 1430, moderate to severe pain, acute pain.?May administer if RR is > 10 , PACU/Phase II, If fentanyl is also ordered, use HYDROmorphone if pain control insufficient with fentanyl or a longer acting agent is needed. Max cumulative dose = 2 mg lidocaine injection 2% (MDV) (CANCELED) 0931 (Given - Provider: [place] Meyer MD) PRN, Starting 08/13/14 at 0931, Intra-procedure ondansetron (ZOFRAN) injection 4 mg (CANCELED) 1009 (Given - Provider: Bree Andres, LIZZ) 4 mg, Intravenous, EVERY 30 MIN PRN, favio sea, vomiting, for 2 Minutes, Starting 08/13/14 at 0923, For 2 doses, MAX total dose = 8 mg, including OR dosing. This is step 1 of the nausea and vomiting prot ocol. If not resolved in 15 minutes, the n go to step 2 (Prochlorperazine if ordered)., PACU/Phase II oxymetazoline (AFRIN) 0.05 % nasal spray (CANCELED) 0835 (Given - Provider: Maggie Martínez, LIZZ - Comment: 2 drops both eyes)0839 (Given - Provider: Maggie Martínez RN) PRN, Starting 08/13/14 at 0835, Intra-procedure povidone-iodine 5 % ophthalmic solution (CANCELED) 0858 (Given - Provider: [place] Meyer MD - Comment: Dropped into both eyes bilaterally during prep) PRN, Starting 08/13/14 at 0858, Intra-procedure documented in this encounter Care Teams Silk Soaker Relationship Specialty Start Date End Date Teresa Vaughan PCP - General Family Practice 05/29/13 05/30/17 [place] [address] documented as of this encounter
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
--- OUTSIDE RECORDS SUMMARY | 2022-06-13 21:41 | XMS_ITS | Encounter Summary ---
:1975 Author Organization [facility] Address [address] [place] [address]. [place] [address] Care Team Providers Name Role Phone Teresa Vaughan Primary Care Provider Encounter Details Date Type Department Care Team Description 09/17/2013 Orders Only [facility] Jeremy Gibbs MD Subjective visual Robb Wangensteen [address] disturbance (Primary Building [place], [place] Dx) 9th Floor, Clinic [address] [place] [address] [place] [address] [place] [address] Social History Tobacco Use Types Packs/Day Years Used Date Smoking Tobacco: Every Day Cigarettes 0.3 2 Alcohol Use Standard Drinks/Week Comments Yes 0 (1 standard drink = 0.6 oz pure alcoho l) occasional Sex Assigned at Date Recorded Not on file documented as of this encounter Plan of Treatment Not on filedocumented as of this encounter Visit Diagnoses Diagnosis Subjective visual disturbance - Primary Subjective visual disturbance, unspecifi ed documented in this encounter Care Teams Jewelry Technician Relationship Specialty Start Date End Date Teresa Vaughan PCP - General Family Practice 05/29/13 05/30/17 [facility] [address] [place] [address] documented as of this encounter
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
--- OUTSIDE RECORDS SUMMARY | 2022-06-13 21:41 | XMS_ITS | Encounter Summary ---
:1975 Author Organization [place] Address [address] [place] [address]. [place] [address] Care Team Providers Name Role Phone Teresa Vaughan Primary Care Provider Reason for Visit Auth/Cert - Closed Specialty Diagnoses / Procedures Referred By Contact Refer red To Contact Surgery Diagnoses Strabismus Ur Periop Procedures RECESSION RESECTION (REPAIR STRABISMUS) BILATERAL [address] [place] [phone] Phone: Fax: Referral ID Status Reason Start Date Expiration Date Visits Requ ested Visits Authorized [id number] Closed 1 1 Encounter Details Date Type Department Care Team Description 08/13/2014 Anesthesia Event M [facility] Jose Flynn MD 420 [facility] [address] [place] [address] PeriOp Services Carlos Ryan APRN MENTAL HEALTH ASSISTANT [address] [place], [place] [id number] [address] [place] [phone] Anesthesia Record Procedure Summary Procedure Name Responsible Anesthesia Start Anesthesia Stop Anesthesiologist Time Time Strabismus Repair Jose Flynn MD 08/13/14 0816 08/13/14 0951 Both Eyes (Bilateral: Eye) Events Date Time Event Comment 08/13/2014 0816 An Start 0820 An Start Data 0825 An Induction 0828 AN START SEVO 0830 An Intubation 0831 Present 0843 MD Present 0851 AN INCISION 0854 MD Present 0923 Present 0929 AN END SEVO 0941 AN Extubation 0943 an stop data 0951 An Stop Electronically s igned by Carlos Hendricks on August 13, 2014 9:51 AM 0952 Present Name Total midazolam 1mg/mL 2 mg fentanyl 50mcg/mL 250 mcg lidocaine 2% 100 mg propofol 10mg/mL 200 mg rocuronium 10mg/mL 50 mg dexamethasone 4mg/mL 8 mg ondansetron 2mg/mL 4 mg glycopyrrolate 0.2mg/mL 0.9 mg neostigmine 1mg/mL 3.5 mg lidocaine 1% 0.2 mL No abx ordered pre-op 1 each LR 1,300 mL Agents Name O2 Air Exp Sevoflurane Ins Sevoflurane Blood No blood administrations on file. Lines, Drains, and Airways Type Details Placement Removal Incision/Surgical Site 04/02/14; 1433; 04/02/14 1433 by 08/10/17 1210 by Bilateral; Eye Charisma Mckeon RN Krajacic, J ennifer (conjuntival VIOLET Long CRNA incisions); 08/10/17; 1210 Peripheral IV 08/13/14; 0800; 20 G; 08/13/14 0800 by 08/13/14 1205 by Left; Hand; Alcohol; Hien Lcoke Smith, Ca sey, RN Injectable; Tolerated WEIGHER PACKING MENTAL HEALTH ASSISTANT well Incision/Surgical Site 08/13/14; 0905; 08/13/14 0905 by 08/10/17 1210 by Bilateral; Eye; Maggie Martínez Jennif er Bilateral Eyes; LIZZ Long APRN MENTAL HEALTH ASSISTANT 08/10/17; 1210 documented in this encounter Social History Tobacco Use Types Packs/Day Years Used Date Smoking Tobacco: Every Day Cigarettes 0.3 2 Smokeless Tobacco: Never Alcohol Use Standard Drinks/Week Comments Yes 0 (1 standard drink = 0.6 oz pure alcoho l) occasional Sex Assigned at Date Recorded Not on file documented as of this encounter OR Notes Anesthesia Postprocedure Evaluation - Jose Flynn MD - 08/13/2014 10:05 AM CST Anesthesia Post-Evaluation Note Patient: Key Peres Patient location: PACU Procedure(s) Performed: Procedure(s) with comments: RECESSION RESECTION (REPAIR STRABISMUS) BILATERAL - Strabismus Repair Both Eyes Anesthesia type: General Post Op Diagnosis: * No post-op diagnosis entered * No value filed. Patient Condition Respiratory Function (RR / SpO2 / Airway Patency): Satisfactory Cardiac Function (HR / Rhythm / BP): Satisfactory Mental Status: Satisfactory. Able to fully participate in evaluation Temperature: Satisfactory Pain Control: Satisfactory PONV: None Beta-Urmila Therapy: None indicated Hydration Status: Satisfactory Last Vitals: Filed Vitals: 08/13/14 0634 08/13/14 0944 BP: 130/89 136/77 Temp: 36.6 ??C (97.9 ??F) 36.8 ??C (98.2 ??F) Resp: 18 12 SpO2: 98% 100% Additional Comments: Vital signs stable, awake and breathing well Jose Flynn M.D. Pager [phone] DING RENTAL MANAGER Anesthesia Preprocedure Evaluation - Jose Flynn MD - 08/13/2014 7:36 AM CST Anesthesia Evaluation . ROS/MED HX ENT/Pulmonary: Neurologic: (+)neuropathy Cardiovascular: METS/Exercise Tolerance: Hematologic: Musculoskeletal: GI/Hepatic: Renal/Genitourinary: Endo: Psychiatric: Infectious Disease: Malignancy: Other: Anesthesia Plan ASA Score: 2 . Plan for General - Maintenance will be Balanced. Routine analgesia and antiemetics to be used for post-operative care. Anesthetic plan, risks, benefits and alternatives discussed with: patient or billing representative. . History & Physical Review History and physical reviewed and following examination; no interval change. ANESTHESIA PREOP EVALUATION NPO Status: Yes Procedure: Procedure(s) with comments: RECESSION RESECTION (REPAIR STRABISMUS) BILATERAL - Strabismus Repair One or Both Eyes HPI: Presents for above PMHx/PSHx/ROS: PAST MEDICAL HISTORY: Past Medical History [...] Relation Age of Onset ??? Cardiovascular Father OR twice ??? Allergies Brother spring ??? Allergies Sister spring Past Anes Hx: No personal or family h/o anesthesia problems Soc Hx: Tobacco: EtOH: Allergies: Allergies Allergen Reactions ??? No Known Allergies Meds: Prescriptions prior to admission Medication Sig Dispense Refill ??? Mirtazapine (REMERON PO) Take 15 mg by mouth daily ??? nicotine (NICODERM CQ) 21 MG/24HR patch 2h hr Place 1 patch onto the skin every 24 hours ??? Methylphenidate HCl (RITALIN PO) Take 20 mg by mouth 2 times daily ??? CLONAZEPAM PO Take 1 tablet by mouth 2 times daily ??? Ondansetron HCl (ZOFRAN PO) Take 1 tablet by mouth daily as needed ??? erythromycin with ethanol (EMGEL) 2 % gel Apply topically daily Apply thin layer on face M-W-F ??? Multiple Vitamins-Minerals (MULTIVITAMIN OR) ??? HYDROcodone-acetaminophen (NORCO) 5-325 MG per tablet Take 1-2 tablets by mouth every 6 hours asneeded for moderate to severe pain 12 tablet 0 No current outpatient prescriptions on file. Physical Exam: VS: T 97.9, P Data Unavailable, BP 130/89, R 18, SpO2 98% Weight Wt Readings from Last 2 Encounters: 08/13/14 66.8 kg (147 lb 4.3 oz) 08/13/14 66.8 kg (147 lb 4.3 oz) Airway: MP 2, TM>3FB, Neck full [...] PT Type and Screen: Assessment/Plan: - ASA 2 - GETA with standard ASA monitors, IV induction, balanced anesthetic - PIV - Antibiotics per surgery - PONV prophylaxis - Blood products available, possible administration discussed with patient Jose Flynn MD 08/13/2014 7:38 AM I have examined the patient and reviewed the record with the above resident or MANUFACTURING DESIGN ENGINEER and agree with above assessment and recommendations. JOSE FLYNN M.D. Staff Anesthesiologist August 13, 2014, 7:41 AM . DING RENTAL MANAGER documented in this encounter Miscellaneous Notes Anesthesia Care Transfer Note - Carlos Hendricks APRN MENTAL HEALTH ASSISTANT - 08/13/2014 9:52 AM CST Anesthesia Care Transfer Note Patient: Key Peres Transferred to: PACU Patient vital signs: stable Airway: none DING RENTAL MANAGER documented in this encounter Plan of Treatment Not on filedocumented as of this encounter Visit Diagnoses Not on filedocumented in this encounter Administered Medications Inactive Administered Medications - up to 3 most recent administrations Medication Order MAR Action Action Date Dose Rate Site dexamethasone (DECADRON) injection Given 08/13/2014 8:33 AM BUILDING RENTAL MANAGER 8 mg Intravenous, PRN, Administer over 1-4 Minutes, Starting on Tue08/13/14 at 0833, Anesthesia Intra-op fentaNYL (SUBLIMAZE) injection Given 08/13/2014 9:45 AM BUILDING RENTAL MANAGER 50 mcg PRN, moderate to severe pain, Starting on Tue08/13/14 at 0825, Anesthesia Intra-op Given 08/13/2014 8:49 AM BUILDING RENTAL MANAGER 50 mcg Given 08/13/2014 8:25 AM BUILDING RENTAL MANAGER 50 mcg glycopyrrolate (ROBINUL) injection Given 08/13/2014 9:26 AM BUILDING RENTAL MANAGER 0.7 mg Intravenous, PRN, Starting on Tue08/13/14 at 0825, Anesthesia Intra-op Given 08/13/2014 8:25 AM BUILDING RENTAL MANAGER 0.2 mg lactated ringers infusion New Bag 08/13/2014 8:58 AM BUILDING RENTAL MANAGER Intravenous, CONTINUOUS PRN, Anesthesia Intra-op, Starting on Tue08/13/14 at 0816, Until Tue08/13/14 at 0951 New Bag 08/13/2014 8:16 AM BUILDING RENTAL MANAGER lidocaine 1 % injection Given 08/13/2014 8:00 AM BUILDING RENTAL MANAGER 0.2 mLs PRN, Starting on Tue08/13/14 at 0800, Anesthesia Intra-op lidocaine injection 2% (MDV) Given 08/13/2014 8:25 AM BUILDING RENTAL MANAGER 100 mg Intravenous, PRN, Starting on Tue08/13/14 at 0825, Anesthesia Intra-op midazolam (VERSED) injection Given 08/13/2014 8:16 AM BUILDING RENTAL MANAGER 2 mg Intravenous, PRN, anxiety, Starting on Tue08/13/14 at 0816, Anesthesia Intra-op neostigmine (PROSTIGMINE) injection Given 08/13/2014 9:26 AM BUILDING RENTAL MANAGER 3.5 mg Intravenous, PRN, Starting on Tue08/13/14 at 0926, Anesthesia Intra-op No abx ordered pre-op Given 08/13/2014 8:25 AM BUILDING RENTAL MANAGER 1 each PRN, Starting on Tue08/13/14 at 0825, Until Tue08/13/14 at 0951, Anesthesia Intra-op ondansetron (ZOFRAN) injection Given 08/13/2014 9:21 AM BUILDING RENTAL MANAGER 4 mg Intravenous, PRN, nausea, vomiting, Administer over 2-5 Minutes, Starting on Tue08/13/14 at 0921, Anesthesia Intra-op propofol (DIPRIVAN) injection 10 mg/mL v ial Given 08/13/2014 8:25 AM BUILDING RENTAL MANAGER 200 mg Intravenous, PRN, Starting on Tue08/13/14 at 0825, Anesthesia Intra-op rocuronium (ZEMURON) injection Given 08/13/2014 8:25 AM BUILDING RENTAL MANAGER 50 mg Intravenous, PRN, Starting on Tue08/13/14 at 0825, Anesthesia Intra-op documented in this encounter Care Teams Sidewalk Repairer Relationship Specialty Start Date End Date Teresa Vaughan PCP - General Family Practice 05/29/13 05/30/17 [place] [address] documented as of this encounter
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
--- OUTSIDE RECORDS SUMMARY | 2022-06-13 21:41 | XMS_ITS | Encounter Summary ---
:1975 Author Organization [place] Address [address] [place] [address] Care Team Providers Name Role Phone Teresa Vaughan Primary Care Provider Reason for Visit Reason Comments Diplopia Evaluation Patients diplopia has gotten worse in last 2 weeks, patient is really dizzy and nausous, vi jamal stable patient wears glasses time clerk, no eye pain Encounter Details Date Type Department Care Team Description 09/20/2013 Office Visit [facility] Eye Adult Double Shani Gibbs MD Subjective visual disturbance (Primary D x); Vision [address] [facility] Diplopia [address] [place] [address] [address] Floor, [address] [address] [place], [place] [phone] (Wo rk) [address] [phone] Social History Tobacco Use Types Packs/Day Years Used Date Smoking Tobacco: Every Day Cigarettes 0.3 2 Alcohol Use Standard Drinks/Week Comments Yes 0 (1 standard drink = 0.6 oz pure alcoho l) occasional Sex Assigned at Date Recorded Not on file documented as of this encounter Patient Instructions Patient InstructionsLeJeremy mancini MD - 09/20/2013 3:34 PM STAMP ANALYST For your double vision, to block the vision in one eye, you can place SCOTCH GIFT WRAP TAPE on one of the lenses on the inside of the lens. Future Appointments Date Time Provider Department Center 11/13/2013 12:30 PM Rebecca Thompson OT [facility] 01/17/2014 9:00 AM Jeremy Gibbs MD [facility] P ANALYST documented in this encounter Progress Notes Jeremy Gibbs MD - 09/20/2013 4:12 PM CST Assessment & Plan Key Peres is a 38 year old female with the following diagnoses: 1. Subjective visual disturbance 2. Diplopia 3. Traumatic optic neuropathy, LEFT eye - better visual acuity Double vision is stable. Will see in 4 months to assess stability. May need to have strabismus surgery. Recommend patch one eye. Attending Physician Attestation: I have seen and [...] with this note. - Jeremy Gibbs MD 4:12 PM 09/20/2013 P ANALYST documented in this encounter Plan of Treatment Not on filedocumented as of this encounter Procedures Procedure Name Priority Date/Time Associated Diagnosis Comme nts EXTERNAL PHOTOS 9 Routine 09/20/2013 4:11 PM Subjective visual [employer] STAMP ANALYST disturbance Diplopia SENSORIMOTOR Routine 09/20/2013 4:11 PM Subjective visual STAMP ANALYST disturbance Diplopia HC SENSORIMOTOR EXAM Routine 09/20/2013 3:16 PM Subjective vis ual STAMP ANALYST disturbance documented in this encounter Results External Photos 9 [employer] Gazes (09/20/2013 4:11 PM STAMP ANALYST) Jeremy Gibbs MD OPHTHALMOLOGY Sensorimotor (09/20/2013 4:11 PM STAMP ANALYST) Jeremy Gibbs MD OPHTHALMOLOGY documented in this encounter Visit Diagnoses Diagnosis Subjective visual disturbance - Primary Subjective visual disturbance, unspecifi ed Diplopia documented in this encounter Care Teams Inclusion Special Education Teacher Relationship Specialty Start Date End Date Teresa Vaughan PCP - General Family Practice 05/29/13 05/30/17 [facility] [address] [place] [address] documented as of this encounter
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
--- OUTSIDE RECORDS SUMMARY | 2022-06-13 21:41 | XMS_ITS | Encounter Summary ---
:1975 Author Organization [facility] Address [address] [place] [address] Care Team Providers Name Role Phone RochellelauroTeresa martinez Primary Care Provider Montana Meyer MD Unavailable Jeremy Gibbs MD Unavailable Jose Monahan MD Unavailable Lise Mcqueen MD Unavailable [phone] Mar Alfaro Primary Care Provider Lise Mcqueen MD Unavailable [phone] Jonh Garcia MD Unavailable Encounter Details Date Type Department Care Team Description 03/15/2013 Records - [address] Provider, [address] [address] Social History Tobacco Use Types Packs/Day Years [...] Priority Date/Time Associated Diagnosis Comme nts XR THORACIC SPINE 3 Routine 05/09/2013 12:00 AM R esults for this VIEWS CDT procedure are i n the results section. XR CERVICAL SPINE Routine 05/09/2013 12:00 AM Res ults for this 2/3 VIEWS CDT procedure are i n the results section. XR CHEST 2 VIEWS Routine 05/06/2013 12:00 AM Resu lts for this CDT procedure are i n the results section. CT HEAD W/O Routine 04/16/2013 12:00 AM Results for this CONTRAST CDT procedure are i n the results section. XR ABDOMEN 1 VIEW Routine 04/16/2013 12:00 AM Res ults for this CDT procedure are i n the results section. XR THORACIC SPINE 3 Routine 04/16/2013 12:00 AM R esults for this VIEWS CDT procedure are i n the results section. XR CERVICAL SPINE Routine 04/16/2013 12:00 AM Res ults for this 2/3 VIEWS CDT procedure are i n the results section. CT HEAD W/O Routine 03/27/2013 12:00 AM Results for this CONTRAST CDT procedure are i n the results section. CT HEAD W/O Routine 03/21/2013 12:00 AM Results for this CONTRAST CDT procedure are i n the results section. XR CHEST PORT 1 Routine 03/20/2013 12:00 AM Resul ts for this VIEW CDT procedure are i n the results section. XR CHEST PORT 1 Routine 03/16/2013 12:00 AM Resul ts for this VIEW CDT procedure are i n the results section. documented in this encounter Results XR Thoracic Spine 3 Views (05/09/2013 12:00 AM CDT) Anatomical Region Laterality Modality Spine Other Specimen (Source) Anatomical Location Collection Method / Collectio n Time Received Time / Laterality Volume Narrative 05/09/2013 12:00 AM CDT See Historical Hospital Medical Record f or documentation Procedure Note Provider, Historical - 01/09/2021Formatt ing of this note might be different from the original. See Historical Hospital Medical Record f or documentation Historical Provider IMG DIAGNOSTIC IMAGING ORDER ESTHER XR Cervical Spine 2/3 Views (05/09/2013 12:00 AM CDT) Anatomical Region Laterality Modality Spine Other Specimen (Source) Anatomical Location Collection Method / Collectio n Time Received Time / Laterality Volume Narrative 05/09/2013 12:00 AM CDT See Historical Hospital Medical Record f or documentation Procedure Note Provider, Historical - 01/09/2021Formatt ing of this note might be different from the original. See Historical Hospital Medical Record f or documentation Historical Provider IMG DIAGNOSTIC IMAGING ORDER ESTHER XR Chest 2 Views (05/06/2013 12:00 AM CDT) Anatomical Region Laterality Modality Chest Digital Radiography Specimen (Source) Anatomical Location Collection Method / Collectio n Time Received Time / Laterality Volume Narrative 05/06/2013 12:00 AM CDT See Historical Hospital Medical Record f or documentation Procedure Note Provider, Historical - 01/09/2021Formatt ing of this note might be different from the original. See Historical Hospital Medical Record f or documentation Historical Provider IMG DIAGNOSTIC IMAGING ORDER ESTHER XR Abdomen 1 View (04/16/2013 12:00 AM CDT) Anatomical Region Laterality Modality Abdomen/Pelvis Other Specimen (Source) Anatomical Location Collection Method / Collectio n Time Received Time / Laterality Volume Narrative 04/16/2013 12:00 AM CDT See Historical Hospital Medical Record f or documentation Procedure Note Provider, Historical - 01/09/2021Formatt ing of this note might be different from the original. See Historical Hospital Medical Record f or documentation Historical Provider IMG DIAGNOSTIC IMAGING ORDER ESTHER XR Thoracic Spine 3 Views (04/16/2013 12:00 AM CDT) Anatomical Region Laterality Modality Spine Other Specimen (Source) Anatomical Location Collection Method / Collectio n Time Received Time / Laterality Volume Narrative 04/16/2013 12:00 AM CDT See Historical Hospital Medical Record f or documentation Procedure Note Provider, Historical - 01/09/2021Formatt ing of this note might be different from the original. See Historical Hospital Medical Record f or documentation Historical Provider IMG DIAGNOSTIC IMAGING ORDER ESTHER XR Cervical Spine 2/3 Views (04/16/2013 12:00 AM CDT) Anatomical Region Laterality Modality Spine Other Specimen (Source) Anatomical Location Collection Method / Collectio n Time Received Time / Laterality Volume Narrative 04/16/2013 12:00 AM CDT See Historical Hospital Medical Record f or documentation Procedure Note Provider, Historical - 01/09/2021Formatt ing of this note might be different from the original. See Historical Hospital Medical Record f or documentation Historical Provider IMG DIAGNOSTIC IMAGING ORDER ESTHER CT Head w/o Contrast (04/16/2013 12:00 AM CDT) Anatomical Region Laterality Modality Head, SUBRAD CT NEURO, SUBRAD CT NEURO, UMP CT NEURO, Computed Tomography RAD CT Specimen (Source) Anatomical Location Collection Method / Collectio n Time Received Time / Laterality Volume Narrative 04/16/2013 12:00 AM CDT See Historical Hospital Medical Record f or documentation Procedure Note Provider, Historical - 01/09/2021Formatt ing of this note might be different from the original. See Historical Hospital Medical Record f or documentation Historical Provider IMG CT ORDERABLES CT Head w/o Contrast (03/27/2013 12:00 AM CDT) Anatomical Region Laterality Modality Head, SUBRAD CT NEURO, SUBRAD CT NEURO, UMP CT NEURO, Computed Tomography RAD CT Specimen (Source) Anatomical Location Collection Method / Collectio n Time Received Time / Laterality Volume Narrative 03/27/2013 12:00 AM CDT See Historical Hospital Medical Record f or documentation Procedure Note Provider, Historical - 01/09/2021Formatt ing of this note might be different from the original. See Historical Hospital Medical Record f or documentation Historical Provider IMG CT ORDERABLES CT Head w/o Contrast (03/21/2013 12:00 AM CDT) Anatomical Region Laterality Modality Head, SUBRAD CT NEURO, SUBRAD CT NEURO, UMP CT NEURO, Computed Tomography RAD CT Specimen (Source) Anatomical Location Collection Method / Collectio n Time Received Time / Laterality Volume Narrative 03/21/2013 12:00 AM CDT See Historical Hospital Medical Record f or documentation Procedure Note Provider, Historical - 01/09/2021Formatt ing of this note might be different from the original. See Historical Hospital Medical Record f or documentation Historical Provider IMG CT ORDERABLES XR Chest Port 1 View (03/20/2013 12:00 AM CDT) Anatomical Region Laterality Modality Chest Digital Radiography Specimen (Source) Anatomical Location Collection Method / Collectio n Time Received Time / Laterality Volume Narrative 03/20/2013 12:00 AM CDT See Historical Hospital Medical Record f or documentation Procedure Note Provider, Historical - 01/09/2021Formatt ing of this note might be different from the original. See Historical Hospital Medical Record f or documentation Historical Provider IMG DIAGNOSTIC IMAGING ORDER ESTHER XR Chest Port 1 View (03/16/2013 12:00 AM CDT) Anatomical Region Laterality Modality Chest Digital Radiography Specimen (Source) Anatomical Location Collection Method / Collectio n Time Received Time / Laterality Volume Narrative 03/16/2013 12:00 AM CDT See Historical Hospital Medical Record f or documentation Procedure Note Provider, Historical - 01/09/2021Formatt ing of this note might be different from the original. See Historical Hospital Medical Record f or documentation Historical Provider IMG DIAGNOSTIC IMAGING ORDER ESTHER documented in this encounter Visit Diagnoses Not on filedocumented in this encounter Care Teams Football Coach Relationship Specialty Start Date End Date Teresa Vaughan PCP - General Family Practice 05/29/13 05/30/17 [facility] [address] [place] [address] Mar Alfaro PCP - General 05/31/17 [facility] [address] [place] [address] Montana Meyer MD MD Ophthalmology 12/10/14 05/30/17 [facility] [address] [place] [address] Jeremy Gibbs MD MD Ophthalmology 12/10/14 Jose Monahan MD MD Ophthalmology 12/10/14 Lise Mcqueen MD Ophthalmology 05/31/17 [address] [place] [id number] Lise Mcqueen, Assigned Surgical Provider 10/11/[address] [place] [id number] Jonh Garcia MD Assigned Surgical Provider 10/12/20 [address] [place], [place] [address] documented as of this encounter
--- OUTSIDE RECORDS SUMMARY | 2022-06-13 21:41 | XMS_ITS | Encounter Summary ---
:1975 Author Organization [facility] Address [address] [place] [address] Care Team Providers Name Role Phone Teresa Vaughan Lyla Primary Care Provider Reason for Visit Auth/Cert - Closed Specialty Diagnoses / Procedures Referred By Contact Refer red To Contact Surgery Diagnoses Strabismus Ur Periop Procedures RECESSION RESECTION (REPAIR STRABISMUS) BILATERAL [address] [place] [address] Phone: Fax: Referral ID Status Reason Start Date Expiration Date Visits Requ ested Visits Authorized [id number] Closed 1 1 Encounter Details Date Type Department Care Team Description 04/02/2014 Hospital Encounter UR PACU Ricardo Meyerick Postoperative eye 2450 Christopher Arita MD [facility] (Primary Dx) e, [place], [place] [address] [address] [place], [place] [phone] [id number] Social History Tobacco Use Types Packs/Day Years Used Date Smoking Tobacco: Every Day Cigarettes 0.3 2 Alcohol Use Standard Drinks/Week Comments Yes 0 (1 standard drink = 0.6 oz pure alcoho l) occasional Sex Assigned at Date Recorded Not on file documented as of this encounter Last Filed Vital Signs Vital Sign Reading Time Taken Comments Blood Pressure 113/74 04/02/2014 5:49 PM CDT Pulse - - Temperature 36.7 ??C (98.1 ??F) 04/02/2014 5:49 PM CDT Respiratory Rate 16 04/02/2014 5:49 PM CDT Oxygen Saturation 99% 04/02/2014 5:49 PM CDT Inhaled Oxygen Concentration - - Weight 63.6 kg (140 lb 3.4 oz) 04/02/2014 10:43 AM CDT Height 154.9 cm (5' 1) 04/02/2014 10:43 AM CDT Body Mass Index 26.49 04/02/2014 10:43 AM CDT documented in this encounter Discharge Instructions Discharge InstructionsNicole Jj - 04/02/2014 5:52 PM CDT [facility] Adult Discharge Orders & Instructions [...] spinal anesthesia). To contact a doctor, call Dr John Meyer, Dr. Lise Mcqueen,Dr. Uzair Urbina Strabismus Repair Discharge Instructions Your [...] resolve slowly over 2- 4 weeks. ??? [place] tinged tears ??? Swollen, painful or itchy [...] Follow Up Follow up with your doctor in Please feel free to resume routine activities, including school and work, as symptoms allow. Although lifting is not restricted for household tasks, heavy lifting should be minimized for the first week. Bathing can be performed as normal with caution to avoid excessive water in the eyes , and swimming should be avoided for the first week. Bloody discharge and bloody eye surface is normal. Vision can be mildly and variably blurred due to the tearing and oinment. Please call [phone] for other concerns including sustained vision loss, progressive eye pain, discharge, eye movement abnormality, or eyelid swelling and redness. Please consider taking a photo ofthe patient's eye appearance and offer to text the photo into the call service for review. documented in this encounter Medications at Time of Discharge Medication Sig Dispensed Refills Start Date End Date CLONAZEPAM PO Take 0.5 mg by 0 mouth 2 times daily as needed for anxiety (or sleep) [id number] Apply to both eyes 1 Tube 1 [...] 0 08/12/2014 documented as of this encounter Nursing Notes Venus Roberson RN - 04/02/2014 11:44 AM CDT Advanced Directive copy placed in chart and copy sent to medical records. Venus Roberson RN - 04/02/2014 11:41 AM CDT Patient can wear Nicotine patch per Dr Joel PARRY. documented in this encounter Miscellaneous Notes Op Note - Montana Meyer MD - 04/03/2014 6:58 AM CDT OPHTHALMOLOGY OPERATIVE REPORT PREOPERATIVE DIAGNOSIS: 1. Esotropia 2. Bilateral sixth nerve palsy 3. History of severe brain trauma 4. Left homonymous hemianopsia POSTOPERATIVE DIAGNOSIS: Same as preoperative diagnosis PROCEDURE: 1. Forced duction testing both eyes 2. Bilateral superior rectus resection of 3.0 millimeters and temporal transposition to superior border of the lateral rectus 3. Bilateral inferior rectus resection of 3.0 millimeters and temporal transposition to inferior border of the lateral rectus SURGEON: Montana Meyer MD MOLD MECHANIC: Sathya Wallis MD IMPLANTS: None COMPLICATIONS: None ESTIMATED BLOOD LOSS: less than 1 mL IV FLUIDS: Per Anesthesia DETAILS OF THE PROCEDURE: On the day of surgery, I, Montana Meyer MD, met the patient, Key Peres, in [...] surgery. Forced duction showedno meaningful restriction in the right eye. There was trace restriction to abducting the left eye. Attention was then turned to the patient's right eye. A temporal conjunctival peritomy was performed. The right superior rectus was isolated on a small hook and then a large hook. Meticulous dissectionwas performed to delineate from associated Tenon's attachments. The muscle was imbricated allowing for a 3.0 millimeters resection at the insertion with double-armed 6-0 Vicryl suture and disinserted from the globe. The same steps were performed to the ipsilateral right inferior rectus muscle. Both the right superior and inferior were brought temporally and sutured at their respective borders of the right lateral rectus. The medial vicryl sutures were reattached to the scleral and tied to each other anterior to the right lateral rectus. The temporal pole sutures were tied to each other underneath the right lateral rectus muscle belly. Betadine prep was readministered and the conjunctiva repaired with interrupted 8-[address] Meyer was present for the entire procedure. Montana Meyer MD Dental Office Coordinator Pediatric Ophthalmology & Strabismus Department of Ophthalmology & Visual Neurosciences [facility] Brief Op Note - Sathya Wallis MD - 04/02/2014 2:51 PM CDT [facility] Brief Operative Note Pre-operative diagnosis: Strabismus Post-operative diagnosis same Procedure: Procedure(s) with comments: RECESSION RESECTION (REPAIR STRABISMUS) BILATERAL - Strabismus Repair, Both Eyes Surgeon(s): Surgeon(s) and Role: * Montana Meyer MD - Primary * Sathya Wallis MD - Resident - Assisting Estimated blood loss: minimal Specimens: * No specimens in log * Findings: Mild medial rectus restriction bilaterally documented in this encounter Plan of Treatment Not on filedocumented as of this encounter Procedures Procedure Name Priority Date/Time Associated Diagnosis Comme nts SIMPLE RECESSION OR 04/02/2014 1:05 PM Strabismus RESECTION, MUSCLE, CDT EXTRAOCULAR, BILATERAL, FOR STRABISMUS CORRECTION HCG QUALITATIVE STAT 04/02/2014 10:51 Postoperative eye Res ults for this URINE AM CDT state procedure are i n the results section. documented in this encounter Results HCG qualitative urine (04/02/2014 10:51 AM CDT) P athologist Signature HCG Qual Urine Negative [facility] Specimen Anatomical Collection Method Collection Time Receive d Time (Source) Location / / Volume Laterality Urine specimen URINE SPECIMEN / 04/02/2014 10:51 04/02 (specimen) Unknown AM CDT 10:56 AM CDT Abby Maldonado MD LAB - URINE ORDERABLES Performing Organization Address City/State/ZIP Code Phon e Number [facility] [address] [place] [address] [facility] documented in this encounter Visit Diagnoses Diagnosis Postoperative eye state - Primary Other states following surgery of eye an d adnexa documented in this encounter Administered Medications Inactive Administered Medications - up to 3 most recent administrations Medication Order MAR Action Action Date Dose Rate Site fentaNYL (SUBLIMAZE) injection Given 04/02/2014 4:11 PM CDT 25 m cg 25-50 mcg 25-50 mcg, Intravenous, EVERY 2 MIN PRN, other, acute pain while in PACU., Starting on Tue04/02/14 at 1516, MAX cumulative dose = 250 mcg. Use Fentanyl initially, as a short acting agent for acute pain control. If insufficient, or a longer acting agent is needed, begin Morphine or Hydromorphone if ordered., PACU Given 04/02/2014 4:06 PM CDT 25 mcg Given 04/02/2014 3:50 PM CDT 50 mcg documented in this encounter Active and Recently Administered Medications Times are shown in CDT. PRN Medication Order 03/31/2014 04/01/2014 04/02/2014 balanced salts (BSS) ophthalmic solution (CANCELED) 1357 (Given - Provider: Montana Meyer MD - Comment: Used throughout case as needed) PRN, dry eyes, Starting 04/02/14 at 1357, Intra-procedure fentaNYL (SUBLIMAZE) injection 25-50 mcg (CANCELED) 1550 (Given - Provider: Simin Bravo RN)1606 (Given - Provider: Simin Bravo, LIZZ)1611 (Given - Provider: Simin Bravo RN) 25-50 mcg, Intravenous, EVERY 2 MIN PRN, Starting 04/02/14 at 1516, other, acute pain while in PACU., MAX cumulative dose = 250 mcg. Use Fentanyl initially, as a short acting agent for acute pain con trol. If insufficient, or a longer actin g agent is needed, begin Morphine or Hydromorphone if ordered., PACU hydroxypropyl methylcellulose (GONIOSOL) 2.5 % ophthalmic soluti on (CANCELED) 1410 (Given - Provider: Montana Meyer MD) PRN, dry eyes, Starting 04/02/14 at 1410, Intra-procedure Lidocaine 1 % injection 0.1-1 mL (COMPLETED) 1453 (Given - Provider: Sathya Wallis MD - Comment: bilateral subconjuntival flush) 0.1-1 mL, Other, ONCE PRN, mild pain wit h VAD insertion or accessing implanted port,, Starting 04/02/14 at 1050, For 1 dose, Do NOT give if patient has a history of allergy to any local anesthetic or any grant product. MAX dose 1 mL subc utaneous OR intradermal in divided doses., Pre-procedure oxymetazoline (AFRIN) 0.05 % nasal spray (CANCELED) 1348 (Given - Provider: Maggie Page RN)1353 (Given - Provider: Maggie Page, RN) PRN, congestion, Starting e 04/02/14 at 1348, Intra-procedure povidone-iodine 5 % ophthalmic solution (CANCELED) 1355 (Given - Provider: Maggie Page, RN)1434 (Given - Provider: Montana Meyer MD - Comment: subconjuntival flush) PRN, irritation, Starting Tue04/02/14 at 1355, Intra-procedure documented in this encounter Care Teams Anthropology And Archeology Instructor Relationship Specialty Start Date End Date Teresa Vaughan PCP - General Family Practice 05/29/13 05/30/17 [facility] [address] [place] [address] documented as of this encounter
--- OUTSIDE RECORDS SUMMARY | 2022-06-13 21:41 | XMS_ITS | Encounter Summary ---
:1975 Author Organization [facility] Address [address] [place] [address]. [place] [address] Care Team Providers Name Role Phone Teresa Vaughan Primary Care Provider Reason for Visit Reason Comments Diplopia Evaluation see Dr. Gibbs's note from rosalina españa for specific exam elements. Encounter Details Date Type Department Care Team Description 01/17/2014 Documentation Only Montana Sandovalo maxx Evaluation [facility] MD Lyla (see Dr. Gibbs's note Clinic [facility]... [address] Floor, [address] [place], [place] [address] [place] [address] [place], [place] [phone] (Work) [phone] Social History Tobacco Use Types Packs/Day Years Used Date Smoking Tobacco: Every Day Cigarettes 0.3 2 Alcohol Use Standard Drinks/Week Comments Yes 0 (1 standard drink = 0.6 oz pure alcoho l) occasional Sex Assigned at Date Recorded Not on file documented as of this encounter Progress Notes Montana Meyer MD - 01/17/2014 2:42 PM CDT Assessment & Plan Key Peres is a 38 year old female with the following diagnoses: 1. 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 Currently cannot fuse with prisms. Reiterated the idea that fusion may not be possible even if eyes are aligned in primary gaze. Would schedule for bilateral transposition for 6NP. ON exam -4 abduction OD, -5 abduction OS OKN severely hypometric on right and absent on left 2. left homonymous hemianopsia 20/20, 20/50 vision full color Extensive discussion regarding the risk, benefits and alternatives of strabismus surgery (incisionalor Botox when applicable) were explained to patient and family. Risks included under or over correction, need for second surgery, difficulty with healing requiring prolonged medication use or wound revision, infection, bleeding, risk of anesthesia, loss of vision or loss of eye. Patient and/or family expressed understanding and wish to proceed. All questions were answered. documented in this encounter Plan of Treatment Scheduled Orders Name Type Priority Associated Diagnoses Order S chedule Silvina-Operative Procedures Routine Paralytic strabismus, Orde red: 01/17/2014 Worksheet (Peds) sixth or abducens nerve palsy, bilateral documented as of this encounter Visit Diagnoses Diagnosis Paralytic strabismus, sixth or abducens nerve palsy, bilateral - Primary documented in this encounter Care Teams Shuttle Route Vehicle Operator Relationship Specialty Start Date End Date Teresa Vaughan PCP - General Family Practice 05/29/13 05/30/[address] [address] documented as of this encounter
--- OUTSIDE RECORDS SUMMARY | 2022-06-13 21:41 | XMS_ITS | Encounter Summary ---
:1975 Author Organization [facility] Address [address] [place] [address]. [place] [address] Care Team Providers Name Role Phone Teresa Vaughan Lyla Primary Care Provider Reason for Visit Auth/Cert - Closed Specialty Diagnoses / Procedures Referred By Contact Refer red To Contact Surgery Diagnoses Strabismus Ur Periop Procedures RECESSION RESECTION (REPAIR STRABISMUS) BILATERAL [address] [place] [address] Phone: Fax: Referral ID Status Reason Start Date Expiration Date Visits Requ ested Visits Authorized [id number] Closed 1 1 Encounter Details Date Type Department Care Team Description 08/13/2014 Surgery [facility] Montana Meyer, Brittany trabismus Repair Both PeriOp Services MD Eyes [address] [place] [id number] [address] [facility] [phone] [place] [address] Surgery Details Date/Time Status Location OR Service Patient Case Case Traum a Class Class Type Case? 08/13/14 8:30 Posted UR OR UR OR Ophthalmology Same Day AM 04 Surgery Panel 1 Procedure LRB Anes Op Region Wound Class Commen ts Strabismus Repair Bilateral General Eye II-Clean Strabis mus Repair Both Eyes Contaminated Both Eyes Surgeon Surgeon Role Service Panel Montana Meyer MD Primary Ophthalmology 1 documented in this encounter Social History [...] Comments Blood Pressure 116/82 08/13/2014 11:16 AM WOODWORKER Pulse - - Temperature 36.9 ??C (98.5 ??F) 08/13/2014 11:16 AM WOODWORKER Respiratory Rate 9 08/13/2014 11:16 AM WOODWORKER Oxygen Saturation 95% 08/13/2014 11:16 AM WOODWORKER Inhaled Oxygen Concentration - - Weight 66.8 kg (147 lb 4.3 oz) 08/13/2014 6:34 AM WOODWORKER Height 157.5 cm (5' 2) 08/13/2014 6:34 AM WOODWORKER Body Mass Index 26.94 08/13/2014 6:34 AM WOODWORKER documented in this encounter Discharge Instructions Discharge InstructionsTheis, Bree Justice RN - 08/13/2014 10:44 AM CST Please [...] already, pleasecall Binh Patrick at or our credit front office developer at and arrange to follow-up in 1 week. Please call [phone] For postop eye concerns including discharge, eye [...] To contact a doctor, call or: ??? [phone] and ask for the Resident Stone Unloader for: (answered 24 hours a day) ??? Emergency Department: [facility]: [phone] [place] Department: [phone] [facility] Emergency Department: [phone] Rev. 05/2014 WORKER documented in this encounter Medications at Time [...] daily Multiple 0 08/04/2017 Vitamins-Minerals (MULTIVITAMIN OR) [id number] Apply to both eyes 1 Tube 0 11/25/2014 thasone (MAXITROL) three times a day [id number] OINT for one week. ophthalmic ointmentIndications: Sixth [...] and answered all pt and family questions. WORKER Carlos Richardson RN - 08/13/2014 11:20 AM CST Pt up to chair, requested to get fully dressed. SPO2 monitor in place, all other monitors unhooked. Pt VSS, states pain is a tolerable level. Drinking and tolerating sips of water. Cold washcloth applied to BL eyes for comfort. WORKER Bree Andres RN - 08/13/2014 11:10 AM CST Report to Carlos Richardson RN WORKER Debi Doan RN - 08/13/2014 6:56 AM CST Denies chance of - not sexually active and has IUD in place. WORKER documented in this encounter Miscellaneous Notes Op [...] left superior rectus SURGEON: Montana Meyer MD CONCESSION ATTENDANT: None IMPLANTS: None COMPLICATIONS: None ESTIMATED BLOOD [...] for the entire procedure. Montana Meyer MD Oyster Cultivator Pediatric Ophthalmology & Strabismus Department of Ophthalmology & Visual Neurosciences [facility] WORKER documented in this encounter Plan of Treatment Not on filedocumented as of this encounter Procedures Procedure Name Priority Date/Time Associated Diagnosis Comme nts SIMPLE RECESSION OR 08/13/2014 8:16 AM WOODWORKER Strabismus RESECTION, MUSCLE, EXTRAOCULAR, BILATERAL, FOR STRABISMUS CORRECTION documented in this encounter Visit Diagnoses Not on filedocumented in this encounter Administered Medications Inactive Administered Medications - up to 3 most recent administrations Medication Order MAR Action Action Date Dose Rate Site balanced salts (BSS) Given 08/13/2014 8:56 AM 1 applicator Both Eyes ophthalmic solution WOODWORKER PRN, Starting on Tue08/13/14 at 0856, Intra-procedure HYDROmorphone (PF) (DILAUDID) injection Given 08/13/2014 10:37 A M WOODWORKER 0.3 mg 0.3-0.5 mg 0.3-0.5 mg, Intravenous, EVERY 10 MIN PRN, moderate to severe pain, acute pain.?May administer if RR is > 10 , Starting on Tue08/13/14 at 0923, If fentanyl is also ordered, use HYDROmorphone if pain control insufficient with fentanyl or a longer acting agent is needed. Max cumulative dose = 2 mg, PACU/Phase II Given 08/13/2014 10:21 AM WOODWORKER 0.3 mg lidocaine injection 2% Given 08/13/2014 9:31 AM 1 mL Operative Site/Surgical (MDV) WOODWORKER Site PRN, Starting on Tue08/13/14 at 0931, Intra-procedure ondansetron (ZOFRAN) injection 4 mg Given 08/13/2014 10:09 AM WOODWORKER 4 mg 4 mg, Intravenous, EVERY 30 MIN PRN, nausea, vomiting, Administer over 2-5 Minutes, Starting on Tue08/13/14 at 0923, For 2 doses, MAX total dose = 8 mg, including OR dosing. This is step 1 of the nausea and vomiting protocol. If not resolved in 15 minutes, then go to step 2 (Prochlorperazine if ordered)., PACU/Phase II oxymetazoline (AFRIN) 0.05 % nasal Given 08/13/2014 8:39 AM WOODWORKER 3 mLs Both Eyes spray PRN, Starting on Tue08/13/14 at 0835, Intra-procedure Given 08/13/2014 8:35 AM WOODWORKER 3 mLs Both Eyes povidone-iodine 5 % ophthalmic solution Given 08/13/2014 8:58 AM WOODWORKER 2 drops PRN, Starting on Tue08/13/14 at 0858, Intra-procedure documented in this encounter Active and Recently Administered Medications Times are shown in WOODWORKER. PRN Medication Order 08/11/2014 08/12/2014 08/13/2014 balanced salts (BSS) ophthalmic solution (CANCELED) 0856 (Given - Provider: Montana Meyer MD - Comment: Used as irrigation during case) PRN, Starting Tue08/13/14 at 0856, Intra-procedure HYDROmorphone (PF) (DILAUDID) injection 0.3-0.5 mg (CANCELED) 1021 (Given - Provider: Bree Andres, LIZZ)1037 (Given - Provider: Bree Andres RN) 0.3-0.5 mg, Intravenous, EVERY 10 MIN MA N, Starting 08/13/14 at 0923, Until 08/13/14 [...] - Provider: Montana Meyer MD) PRN, Starting Tue08/13/14 at 0931, Intra-procedure ondansetron (ZOFRAN) injection 4 [...] (CANCELED) 0835 (Given - Provider: Maggie Martínez, RN - Comment: 2 drops both eyes)0839 (Given - Provider: Maggie Martínez, LIZZ) PRN, Starting 08/13/14 at 0835, Intra-procedure povidone-iodine 5 % ophthalmic solution (CANCELED) 0858 (Given - Provider: Montana Meyer MD - Comment: Dropped into both eyes bilaterally during prep) PRN, Starting Tue08/13/14 at 0858, Intra-procedure documented in this encounter Care Teams Engineer Internship Relationship Specialty Start Date End Date Teresa Vaughan PCP - General Family Practice 05/29/13 05/30/[address] [address] documented as of this encounter
--- OUTSIDE RECORDS SUMMARY | 2022-06-13 21:41 | XMS_ITS | Encounter Summary ---
:1975 Author Organization [facility] Address [address] [place] [address]. [place] [address] Care Team Providers Name Role Phone Teresa Vaughan Lyla Primary Care Provider Reason for Visit Reason Comments Sixth Nerve Palsy no changes overall, uses tap e to occlude Left lens. No pain. VA seems stableRE, unsure LE Auth/Cert - Closed Specialty Diagnoses / Procedures Referred By Contact Refer red To Contact Surgery Diagnoses Strabismus Ur Periop Procedures RECESSION RESECTION (REPAIR STRABISMUS) BILATERAL [address] [place] [address] Phone: Fax: Referral ID Status Reason Start Date Expiration Date Visits Requ ested Visits Authorized [id number] Closed 1 1 Encounter Details Date Type Department Care Team Description 04/02/2014 Office Visit Montana Sandoval MD [facility] [address] [place] [address] Paralytic strabismus, [facility], p Eye sixth or abducens [facility] nerve palsy, bilateral [address] Floor, [address] (Primary Dx) [address] [place] [phone] Social History Tobacco Use Types Packs/Day Years Used Date Smoking Tobacco: Every Day Cigarettes 0.3 2 Alcohol Use Standard Drinks/Week Comments Yes 0 (1 standard drink = 0.6 oz pure alcoho l) occasional Sex Assigned at Date Recorded Not on file documented as of this encounter Progress Notes Geri Rodriguez Co - 04/02/2014 10:05 AM CDT IMP: bilateral th CN palsy with small hyper. H/O TBI with traumatic optic neuropathy. Fuses at near PLAN: F/U as scheduled. documented in this encounter Nursing Notes Geri Rodriguez - 04/02/2014 10:03 AM CDT Chief Complaint Patient presents with ??? Sixth Nerve Palsy no changes overall, uses tape to occlude Left lens. No pain. VA seems stableRE, unsure LE H/o TBI 02/2013, stable. Homo hemianopia, Traumatic optic neuropathy documented in this encounter Plan of Treatment Not on filedocumented as of this encounter Procedures Procedure Name Priority Date/Time Associated Diagnosis Comme nts SENSORIMOTOR Routine 04/02/2014 10:05 AM CDT Paralytic strabis mus, sixth or abducens nerve palsy, bilateral documented in this encounter Results Sensorimotor (04/02/2014 10:05 AM CDT) Montana Meyer MD OPHTHALMOLOGY documented in this encounter Visit Diagnoses Diagnosis Paralytic strabismus, sixth or abducens nerve palsy, bilateral - Primary documented in this encounter Care Teams Latent Print Examiner Relationship Specialty Start Date End Date Teresa Vaughan PCP - General Family Practice 05/29/13 05/30/17 [facility] [address] [place] [address] documented as of this encounter
--- OUTSIDE RECORDS SUMMARY | 2022-06-13 21:41 | XMS_ITS | Encounter Summary ---
:1975 Author Organization [place] Address [address] [place] [address] Care Team Providers Name Role Phone RochellesheridanTeresa Primary Care Provider Montana Meyer MD Unavailable Jeremy Gibbs MD Unavailable Jose Monahan MD Unavailable Lise Mcqueen MD Unavailable [phone] Mar Alfaro Primary Care Provider Lise Mcqueen MD Unavailable [phone] Jonh Garcia MD Unavailable Ta Lane OD Unavailable Encounter Details Date Type Department Care Team Description 06/11/2013 Office Visit-[facility] Jeremy Gibbs MD [address] [place] [address] (Wo rk) Social History Tobacco Use Types Packs/Day Years Used Date Smoking Tobacco: Every Day Cigarettes 0.3 2 Alcohol Use Standard Drinks/Week Comments Yes 0 (1 standard drink = 0.6 oz pure alcoho l) occasional Sex Assigned at Date Recorded Not on file documented as of this encounter Progress Notes Jeremy Gibbs MD - 06/11/2013 12:12 PM CST Optical Effects Camera Operator: Jeremy Gibbs Status: Signed Encounter: 2013-06-11 12:12:00.000 Type: Chart Note Mailed patient's outside CT scan and report to patient's home for her records. Electronically signed by:Madhavi Steve Jun 11 2013 12:13PM OPERATIONS MGR ATIONS MGR documented in this encounter Plan of Treatment Not on filedocumented as of this encounter Visit Diagnoses Not on filedocumented in this encounter Care Teams Mill Set Up Relationship Specialty Start Date End Date Teresa Vaughan PCP - General Family Practice 05/29/13 05/30/17 [facility] [address] [place] [address] Mar Alfaro PCP - General 05/31/17 [facility] [address] [place] [address] Montana Meyer MD MD Ophthalmology 12/10/14 05/30/17 [facility] [address] [place] [address] Jeremy Gibbs MD MD Ophthalmology 12/10/14 Jose Monahan MD MD Ophthalmology 12/10/14 Lise Mcqueen MD Ophthalmology 05/31/[address] [place] [address] Lise Mcqueen, Assigned Surgical Provider 10/11/[address] [place] [address] 675344 Jonh Garcia MD Assigned Surgical Provider 10/12/[address] [place] [address], ILDA Assigned Surgical Provider 01/02/[address] [place] [address] [id number] documented as of this encounter
--- OUTSIDE RECORDS SUMMARY | 2022-06-13 21:41 | XMS_ITS | Encounter Summary ---
:1975 Author Organization [place] Address [address] [place] [address]. [place] [address] Care Team Providers Name Role Phone Teresa Vaughan Primary Care Provider Reason for Visit Auth/Cert - Closed Specialty Diagnoses / Procedures Referred By Contact Refer red To Contact Surgery Diagnoses Strabismus Ur Periop Procedures RECESSION RESECTION (REPAIR STRABISMUS) BILATERAL [address] [facility] [place] [address] Phone: Fax: Referral ID Status Reason Start Date Expiration Date Visits Requ ested Visits Authorized [id number] Closed 1 1 Encounter Details Date Type Department Care Team Description 04/02/2014 Anesthesia Event [facility] Abby Maldonado PeriOp Services MD Shaka [address] [facility] XX RESIGNED XX [place] [address] [place], [place] [address] (Wo rk) Anesthesia Record Procedure Summary Procedure Name Responsible Anesthesia Start Anesthesia Stop Anesthesiologist Time Time Strabismus Repair, Abby Maldonado, 04/02/14 1325 1512 Both Eyes (Bilateral: Eye) Events Date Time Event Comment 04/02/2014 1325 An Start 1325 MD Present 1330 An Start Data 1336 An Induction 1341 An Intubation 1341 MD Present 1341 Quick Note Easy mask A/W. A traumatic intubation UDV. ETT through clear, open cord s with ease. 1341 AN START SEVO 1408 AN INCISION 1448 AN END SEVO 1504 AN Extubation 1507 an stop data 1512 An Stop Electronically s igned by Awilda العراقي on April 02, 2014 3:12 PM Name Total midazolam 1mg/mL 2 mg fentanyl 50mcg/mL 250 mcg lidocaine 2% 60 mg propofol 10mg/mL 200 mg rocuronium 10mg/mL 40 mg dexamethasone 4mg/mL 6 mg ondansetron 2mg/mL 4 mg ketorolac 30mg/mL 30 mg glycopyrrolate 0.2mg/mL 0.9 mg neostigmine 1mg/mL 3.5 mg No abx ordered pre-op 1 each metoprolol 1mg/mL 2 mg LR 1,000 mL Agents Name O2 Air Exp Sevoflurane Exp Desflurane Ins Sevoflurane Ins Desflurane Blood No blood administrations on file. Lines, Drains, and Airways Type Details Placement Removal Peripheral IV 04/02/14; 1210; 18 G; 04/02/14 1210 by 04/02/14 1748 by Right; Hand; Alcohol; Carlos Ryan Fitzpatric k, Topical; Tolerated well VIOLET Lehman SOCIAL MEDIA COMMUNITY MANAGER Susan t RETIRED ETT 04/02/14; 1341; Airway 04/02/14 1341 by 04/02/14 1504 by Size: 7; Cuffed; Oral Guerita Pacheco, Awilda العراقي, endotracheal tube; Blade REAL ESTATE LISTING CONSULTANT SOCIAL MEDIA COMMUNITY MANAGER REAL ESTATE LISTING CONSULTANT CR NA Type: Gonzalez; Blade Size: 2; Insertion Attempts: 1; Secured at (cm)to lip: 22 cm; Breath Sounds: Equal, clear and bilateral; End Tidal CO2: Present; Dentition: Intact; Grade View of Cords: 1 Incision/Surgical Site 04/02/14; 1433; 04/02/14 1433 by 08/10/17 1210 by Bilateral; Eye Charisma Mckeon RN Krajacic, J ennifer (conjuntival incisions); VIOLET Long CRNA 08/10/17; 1210 documented in this encounter Social History Tobacco Use Types Packs/Day Years Used Date Smoking Tobacco: Every Day Cigarettes 0.3 2 Alcohol Use Standard Drinks/Week Comments Yes 0 (1 standard drink = 0.6 oz pure alcoho l) occasional Sex Assigned at Date Recorded Not on file documented as of this encounter OR Notes Anesthesia Postprocedure Evaluation - Jon Mckeon MD - 04/02/2014 4:24 PM CDT Anesthesia Post-Evaluation Note Patient: Key Peres Patient location: PACU Procedure(s) Performed: Procedure(s) with comments: RECESSION RESECTION (REPAIR STRABISMUS) BILATERAL - Strabismus Repair, Both Eyes Anesthesia type: General, ETT Post Op Diagnosis: * No post-op diagnosis entered * No value filed. Patient Condition Respiratory Function (RR / SpO2 / Airway Patency): Satisfactory Cardiac Function (HR / Rhythm / BP): Satisfactory Mental Status: Satisfactory. Able to fully participate in evaluation Temperature: Satisfactory Pain Control: Satisfactory PONV: None Beta-Urmila Therapy: None indicated Hydration Status: Satisfactory Last Vitals: Filed Vitals: 04/02/14 1545 04/02/14 1600 04/02/14 1615 BP: 127/76 133/84 129/81 Temp: 36.7 ??C (98.1 ??F) Resp: 15 17 11 SpO2: 94% 98% 99% Additional Comments: Anesthesia Preprocedure Evaluation - Abby Maldonado MD - 04/02/2014 11:14 AM CDT Anesthesia Evaluation . Pt has had prior anesthetic. No history of anesthetic complications ROS/MED HX ENT/Pulmonary: (+)tobacco use, Current use , . . 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 Cardiovascular: - neg cardiovascular ROS METS/Exercise Tolerance: Hematologic: - neg hematologic ROS Musculoskeletal: - neg musculoskeletal ROS GI/Hepatic: - neg GI/hepatic ROS Renal/Genitourinary: - ROS Renal section negative Endo: - neg endo ROS Psychiatric: Comment: PTSD (+) psychiatric history depression Infectious Disease: - neg infectious disease ROS Malignancy: - no malignancy Other: Physical Exam Normal systems: cardiovascular, pulmonary and dental Airway Mallampati: II TM distance: >3 FB Neck ROM: full Dental Cardiovascular Rhythm and rate: regular and normal Pulmonary breath sounds clear to auscultation BP: 132/85 Pulse: 71 Resp: 18 SpO2: 99 Temp: 36.8 ??C (98.2 ??F) Ht: 1.549 m (5' 1) (04/02/14) Wt: 63.6 kg (140 lb 3.4 oz) (04/02/14) BMI: 26.55 IBW: 47.764 kg (105 lb 4.8 oz) Anesthesia Plan ASA Score: 2 . Plan for General and ETT - with Intravenous induction.Maintenance will be Balanced. Routine analgesia and antiemetics to be used for post-operative care. Anesthetic plan, risks, benefits and alternatives discussed with: patient or technical sales representatives. History & Physical Review History and physical reviewed; no interval change. . documented in this encounter Miscellaneous Notes Addendum Note - Jon Mckeon MD - 04/04/2014 7:51 AM CDT Addendum created 04/04/14 0751 by Jon Mckeon MD Modules edited: Anesthesia Attestations Anesthesia Care Transfer Note - Awilda العراقي APRN CRNA - 04/02/2014 3:11 PM CDT Anesthesia Care Transfer Note Patient: Key [...] Dose Rate Site dexamethasone (DECADRON) injection Given 04/02/2014 1:50 PM CDT 6 mg PRN, Administer over 1-4 Minutes, Starting on Tue04/02/14 at 1350, Anesthesia Intra-op fentaNYL (SUBLIMAZE) injection Given 04/02/2014 2:15 PM CDT 50 mcg PRN, moderate to severe pain, Starting on Tue04/02/14 at 1336, Anesthesia Intra-op Given 04/02/2014 2:09 PM CDT 50 mcg Given 04/02/2014 1:36 PM CDT 150 mcg glycopyrrolate (ROBINUL) injection Given 04/02/2014 2:50 PM CDT 0.7 mg PRN, Starting on Tue04/02/14 at 1326, Anesthesia Intra-op Given 04/02/2014 1:26 PM CDT 0.2 mg ketorolac (TORADOL) injection Given 04/02/2014 2:41 PM CDT 30 mg PRN, moderate pain, Starting on Tue04/02/14 at 1441, Anesthesia Intra-op lactated ringers infusion New Bag 04/02/2014 2:16 PM CDT Intravenous, CONTINUOUS PRN, Anesthesia Intra-op, Starting on Tue04/02/14 at 1210, Until Tue04/02/14 at 1512 New Bag 04/02/2014 12:10 PM CDT lidocaine injection 2% (MDV) Given 04/02/2014 1:36 PM CDT 60 mg PRN, Starting on Tue04/02/14 at 1336, Anesthesia Intra-op metoprolol (LOPRESSOR) injection Given 04/02/2014 3:06 PM CDT 1 mg PRN, high blood pressure, Starting on Tue04/02/14 at 1434, Anesthesia Intra-op Given 04/02/2014 2:34 PM CDT 1 mg midazolam (VERSED) injection Given 04/02/2014 1:26 PM CDT 2 mg PRN, anxiety, Starting on Tue04/02/14 at 1326, Anesthesia Intra-op neostigmine (PROSTIGMINE) injection Given 04/02/2014 2:50 PM CDT 3.5 mg Intravenous, PRN, Starting on Tue04/02/14 at 1450, Anesthesia Intra-op No abx ordered pre-op Given 04/02/2014 1:52 PM CDT 1 each PRN, Starting on Tue04/02/14 at 1352, Until Tue04/02/14 at 1512, Anesthesia Intra-op ondansetron (ZOFRAN) injection Given 04/02/2014 2:39 PM CDT 4 mg PRN, nausea, vomiting, Administer over 2-5 Minutes, Starting on Tue04/02/14 at 1439, Anesthesia Intra-op propofol (DIPRIVAN) injection 10 mg/mL v ial Given 04/02/2014 1:36 PM CDT 200 mg PRN, Starting on Tue04/02/14 at 1336, Anesthesia Intra-op rocuronium (ZEMURON) injection Given 04/02/2014 1:36 PM CDT 40 mg PRN, Starting on Tue04/02/14 at 1336, Anesthesia Intra-op documented in this encounter Care Teams Escrow Processor Relationship Specialty Start Date End Date Teresa Vaughan PCP - General Family Practice 05/29/13 05/30/17 [facility] [address] [place] [address] documented as of this encounter
--- OUTSIDE RECORDS SUMMARY | 2022-06-13 21:41 | XMS_ITS | Encounter Summary ---
:1975 Author Organization [place] Address [address] [place] [address] Care Team Providers Name Role Phone Unavailable Primary Care Provider Unavailable Reason for Visit Reason Comments Vaginal Problem Encounter Details Date Type Department Care Team Description 01/23/2003 [place], VAGINI TIS NOS (Primary Dx); Physicians [facility] [address] , [address] [facility] [address] [place] [address] [phone] Social History Tobacco Use Types Packs/Day Years Used Date Smoking Tobacco: Every Day Cigarettes 0.3 2 Alcohol Use Standard Drinks/Week Comments Yes 0 (1 standard drink = 0.6 oz pure alcoho l) occasional Sex Assigned at Date Recorded Not on file documented as of this encounter Last Filed Vital Signs Vital Sign Reading Time Taken Comments Blood Pressure 110/70 01/23/2003 3:45 PM CDT Pulse 84 01/23/2003 3:45 PM CDT Temperature 36.7 ??C (98.1 ??F) 01/23/2003 3:45 PM CDT Respiratory Rate 12 01/23/2003 3:45 PM CDT Oxygen Saturation - - Inhaled Oxygen Concentration - - Weight 55.8 kg (123 lb) 01/23/2003 3:45 PM CDT Height 156.2 cm (5' 1.5) 01/23/2003 3:45 PM CDT Body Mass Index 22.86 01/23/2003 3:45 PM CDT documented in this encounter Progress Notes 01/23/2003 3:45 PM CDT SUBJECTIVE: Key Peres is an 27 year old woman who presents with vaginitis. Symptoms include disc harge described as scant, local irritation, vulvar itching and burning. Onset of symptoms 1 week ago, unchanged since. Tried a Monistat One 2 nights ago and not resolved. 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 2) Recheck if symptoms persist, worsen, or new symptoms develop. PE: Discussed vaginitis, modes of transmission, and rationale for treatment. documented in this encounter Nursing Notes 01/23/2003 3:45 PM CDT >> DILIP NELSON 01/23/2003 4:09 pm Patient is new to [facility]. She thinks that she may have a yeast infection that has been going on for a week. Questioned patient about current smoking habits. Pt. currently smokes. Advised about smoking cessation. documented in this encounter Plan of Treatment Not on filedocumented as of this encounter Procedures Procedure Name Priority Date/Time Associated Diagnosis Comme nts HCL WET PREP Routine 01/23/2003 4:34 PM Vaginitis Nos Results for this CDT procedure are i n the results section . documented in this encounter Results (ABNORMAL) A WET PREP (01/23/2003 4:34 PM CDT) [facility] Method Time Signature Trichomonas neg [facility] Vaginals yeast cells pos [facility] PMNs Wet Prep heavy [facility] Clue cells pos [facility] Bacteria Urine moderate [facility] pH Arterial 4.5 (A) 5.0 - 7.0 [facility] Specimen (Source) Anatomical Collection Method Collection Time Re ceived Time Location / / Volume Laterality 01/23/2003 4:34 PM CDT Kerry Delgado MD LABORATORY Performing Organization Address City/State/ZIP Code Phon e Number [facility] documented in this encounter Visit Diagnoses Diagnosis Vaginitis and vulvovaginitis, unspecifie d - Primary Candidiasis of vulva and vagina documented in this encounter
--- OUTSIDE RECORDS SUMMARY | 2022-06-13 21:41 | XMS_ITS | Encounter Summary ---
:1975 Author Organization [facility] Address [address] [place] [address]. [place] [address] Care Team Providers Name Role Phone Teresa Vaughan Lyla Primary Care Provider Reason for Visit Auth/Cert - Closed Specialty Diagnoses / Procedures Referred By Contact Refer red To Contact Surgery Diagnoses Strabismus Ur Periop Procedures RECESSION RESECTION (REPAIR STRABISMUS) BILATERAL [facility] [place] [address] Phone: Fax: Referral ID Status Reason Start Date Expiration Date Visits Requ ested Visits Authorized [id number] Closed 1 1 Encounter Details Date Type Department Care Team Description 04/02/2014 Surgery [facility] Montana Meyer S trabismus Repair, Both PeriOp Services MD Eyes [address] [place] [address] [address] [facility] [phone] [place] [address] Surgery Details Date/Time Status Location OR Service Patient Case Case Traum a Class Class Type Case? 04/02/14 12:00 Posted UR OR UR OR Ophthalmology Same Day PM 04 Surgery Panel 1 Procedure [facility] Anes Op Region Wound Class Commen ts Strabismus Repair, Both Bilateral General Eye I-Clean S trabismus Repair, Eyes Both Eyes Surgeon Surgeon Role Service Panel Montana Meyer MD Primary Ophthalmology 1 Sathya Wallis MD Resident - Assisting 1 documented in [...] Sign Reading Time Taken Comments Blood Pressure 132/85 04/02/2014 10:43 AM CDT Pulse - - Temperature 36.8 ??C (98.2 ??F) 04/02/2014 10:43 AM CDT Respiratory Rate 18 04/02/2014 10:43 AM CDT Oxygen Saturation 99% 04/02/2014 10:43 AM CDT Inhaled Oxygen Concentration - - Weight 63.6 kg (140 lb 3.4 oz) 04/02/2014 10:43 AM CDT Height 154.9 cm (5' 1) 04/02/2014 10:43 AM CDT Body Mass Index 26.49 04/02/2014 10:43 AM CDT documented in this encounter Discharge Instructions Discharge InstructionsNicole Jj - 04/02/2014 5:52 PM CDT [facility] Adult Discharge Orders & Instructions [...] resolve slowly over 2- 4 weeks. ??? Amalga tinged tears ??? Swollen, painful or itchy [...] to the tearing and oinment. Please call [phone] for other concerns including sustained vision loss, [...] daily as needed for anxiety (or sleep) [id number] Apply to both eyes 1 Tube 1 [...] the lateral rectus SURGEON: Montana Meyer MD SCOURING TRAIN OPERATOR: Sathya Wallis MD IMPLANTS: None COMPLICATIONS: None [...] for the entire procedure. Montana Meyer MD Hand Spinner Pediatric Ophthalmology & Strabismus Department of Ophthalmology & Visual Neurosciences [facility] Brief Op Note - Sathya Wallis MD - 04/02/2014 2:51 PM CDT [facility] Brief Operative Note Pre-operative diagnosis: Strabismus Post-operative [...] athologist Signature HCG Qual Urine Negative NEG [facility] Specimen Anatomical Collection Method Collection Time Receive d Time (Source) Location / / Volume Laterality Urine specimen URINE SPECIMEN / 04/02/2014 10:51 04/02 (specimen) Unknown AM CDT 10:56 AM CDT Abby Maldonado MD LAB - URINE ORDERABLES Performing Organization Address City/State/ZIP Code Phon e Number [facility] [address] [place] [address] [facility] documented in this encounter Visit Diagnoses Not on filedocumented in this encounter Administered Medications Inactive Administered Medications - up to 3 most recent administrations Medication Order MAR Action Action Date Dose Rate Site balanced salts (BSS) Given 04/02/2014 1:57 PM 1 applicator Both Eyes ophthalmic solution CDT PRN, dry eyes, Starting on Tue04/02/14 at 1357, Intra-procedure fentaNYL (SUBLIMAZE) injection 25-50 mcg Given 04/02/2014 4:11 PM CDT 25 mcg 25-50 mcg, Intravenous, EVERY 2 MIN [...] Given 04/02/2014 3:50 PM CDT 50 mcg hydroxypropyl Given 04/02/2014 2:10 PM 4 drops Ope rative Site/Surgical methylcellulose (GONIOSOL) CDT Site 2.5 % ophthalmic solution PRN, dry eyes, Starting on Tue04/02/14 at 1410, Intra-procedure Lidocaine 1 % injection 0.1-1 mL Given 04/02/2014 2:53 PM CDT 2 mLs Both Eyes 0.1-1 mL, Other, ONCE PRN, mild pain with VAD insertion or accessing implanted port,, Starting on Tue04/02/14 at 1050, For 1 dose, Do NOT give if patient has a history of allergy to any local anesthetic or any grant product. MAX dose 1 mL subcutaneous OR intradermal in divided doses., Pre-procedure oxymetazoline (AFRIN) 0.05 % nasal Given 04/02/2014 1:53 PM CDT 1 spray Both Eyes spray PRN, congestion, Starting on Tue04/02/14 at 1348, Intra-procedure Given 04/02/2014 1:48 PM CDT 1 spray Both Eyes povidone-iodine 5 % Given 04/02/2014 2:34 PM 4 drops Operative Site/Surgical ophthalmic solution CDT Site PRN, irritation, Starting on Tue04/02/14 at 1355, Intra-procedure Given 04/02/2014 1:55 PM CDT 8 drops Opera tive Site/Surgical Site documented in this encounter Active and Recently [...] Bravo RN)1606 (Given - Provider: Simin Bravo, RN)1611 (Given - Provider: Simin Bravo RN) 25-50 mcg, Intravenous, EVERY 2 MIN PRN, Starting e 04/02/14 at 1516, other, acute pain while [...] Montana Meyer MD) PRN, dry eyes, Starting e 04/02/14 at 1410, Intra-procedure Lidocaine 1 % injection 0.1-1 mL (COMPLETED) 1453 (Given - Provider: Sathya Wallis MD - Comment: bilateral subconjuntival flush) 0.1-1 mL, Other, ONCE PRN, mild pain wit h VAD insertion or accessing implanted port,, Starting e 04/02/14 at 1050, For 1 dose, Do NOT give if patient has a history of allergy to any local anesthetic or any grant product. MAX dose 1 mL subc utaneous OR intradermal in divided doses., Pre-procedure oxymetazoline (AFRIN) 0.05 % nasal spray (CANCELED) 1348 (Given - Provider: Maggie Page RN)1353 (Given - Provider: Maggie Page, LIZZ) PRN, congestion, Starting 04/02/14 at 1348, Intra-procedure povidone-iodine 5 % ophthalmic solution (CANCELED) 1355 (Given - Provider: Maggie Page RN)1740 (Given - Provider: Montana Meyer MD - Comment: subconjuntival flush) PRN, irritation, Starting Tu04/02/14 at 1355, Intra-procedure documented in this encounter Care Teams Clay Preparation Supervisor Relationship Specialty Start Date End Date Teresa Vaughan PCP - General Family Practice 05/29/13 05/30/17 [facility] [address] [place] [address] documented as of this encounter
--- OUTSIDE RECORDS SUMMARY | 2022-06-13 21:41 | XMS_ITS | Encounter Summary ---
:1975 Author Organization [place] Address [address] [place] [address]. [place] [address] Care Team Providers Name Role Phone Teresa Vaughan Primary Care Provider Reason for Visit Reason Comments Follow Up For Surgery Of Eye Since surgery, Key has had blurry vision in both eyes and continued diplopia and h as been patching the left eye. She has also had foreig n body sensation in both eyes. No tearing, discharge. Eyes feel itchy and dry. 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 [facility] [address]rd Floor, [address] [place] [address] [phone] Social History Tobacco Use Types Packs/Day Years Used Date Smoking Tobacco: Every Day Cigarettes 0.3 2 Alcohol Use Standard Drinks/Week Comments Yes 0 (1 standard drink = 0.6 oz pure alcoho l) occasional Sex Assigned at Date Recorded Not on file documented as of this encounter Patient Instructions Patient InstructionsBoMontana grande MD - 04/18/2014 10:38 AM CDT Artificial tears can be used for irritation. Monitor visional functioning and the baseline alignment of the eyes until your next clinic visit. Ifyou have concerns or see changes in functioning, please contact my office. A sooner reassessment by my orthoptic team or me may be necessary. documented in this encounter Progress Notes Montana Meyer MD - 04/18/2014 10:39 AM CDT Assessment & Plan Key Peres is [...] the need for conservative care for now. We also discuss the variably blurred vision on the right side since surgery. I offered artificial tears and encouraged patience as long as the trend was for improvement. Left homonymous hemianopsia History of left orbital floor fracture Eye movements are not restricted and there is no enophthalmia. Patient Instructions Artificial tears can be used for irritation. Monitor visional functioning and the baseline alignment [...] checkout. Return in about 3 months (around 07/18/2014). Attending Physician Attestation: I have seen and [...] and agree with this note. - Montana Arita. MD Mitch documented in this encounter Nursing Notes Betsy Wallace CO - 04/18/2014 9:36 AM CDT Chief Complaint Patient presents with ??? Follow Up For Surgery Of Eye Since surgery, Key has had blurry vision in both eyes and continued diplopia and has been patching the left eye. She has also had foreign body sensation in both eyes. No tearing, discharge. Eyes feel itchy and dry. 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 [address] [place] [address] documented as of this encounter
--- OUTSIDE RECORDS SUMMARY | 2022-06-13 21:41 | XMS_ITS | Encounter Summary ---
:1975 Author Organization [facility] Address [address] [place] [address] Care Team Providers Name Role Phone Teresa Vaughan Primary Care Provider Montana Meyer MD Unavailable Jeremy Gibbs MD Unavailable Jose Monahan MD Unavailable Lise Mcqueen MD Unavailable Mar Alfaro Primary Care Provider Lise Mcqueen MD Unavailable [phone] Jonh Garcia MD Unavailable Encounter Details Date Type Department Care Team Description 04/07/2013 Records - [address] [address] Social History Tobacco Use Types Packs/Day Years [...] Associated Diagnosis Comme nts CT HEAD W/O Routine 04/07/2013 12:00 AM Results for this CONTRAST CDT procedure are i n the results section. documented in this encounter Results CT Head w/o Contrast (04/07/2013 12:00 AM CDT) Anatomical Region Laterality Modality Head, SUBRAD CT NEURO, SUBRAD CT NEURO, UMP CT NEURO, Computed Tomography RAD CT Specimen (Source) Anatomical Location Collection Method / Collectio n Time Received Time / Laterality Volume Narrative 04/07/2013 12:00 AM CDT See Historical Hospital Medical Record f or documentation Procedure Note Provider, Historical - 01/09/2021Formatt ing of this note might be different from the original. See Historical Hospital Medical Record f or documentation Historical Provider IMG CT ORDERABLES documented in this encounter Visit Diagnoses Not on filedocumented in this encounter Care Teams Remote Mortgage Underwriter Relationship Specialty Start Date End Date Teresa Vaughan PCP - General Family Practice 05/29/13 05/30/17 [facility] [address] [place] [address] Mar Alfaro PCP - General 05/31/17 [facility] [address] [place] [address] Montana Meyer MD MD Ophthalmology 12/10/14 05/30/17 [facility] [address] [place] [address] Jeremy Gibbs MD MD Ophthalmology 12/10/14 Jose Monahna MD MD Ophthalmology 12/10/14 Lise Mcqueen MD Ophthalmology 05/31/[address] [place] [address] Lise Mcqueen, Assigned Surgical Provider 10/11/20 [address] [facility] [address] [place] [phone] Jonh Garcia MD Assigned Surgical Provider 10/12/20 [address] [place] [address] documented as of this encounter
--- OUTSIDE RECORDS SUMMARY | 2022-06-13 21:41 | XMS_ITS | Encounter Summary ---
:1975 Author Organization [facility] Address [address] [place] [address] Care Team Providers Name Role Phone Teresa Vaughan Primary Care Provider Reason for Referral Occupational Therapy - Closed Specialty Diagnoses / Procedures Referred By Contact Refer red To Contact Diagnoses Vision loss Jeremy Gibbs MD [address] [place] [phone] Referral ID Status Reason Start Date Expiration Date Visits Requ ested Visits Authorized [id number] Closed 11/14/2013 05/13/2014 1 1 Encounter Details Date Type Department Care Team Description 11/14/2013 Orders Only Eye Clinic Jeremy Gibbs MD Vision loss (Primary Robb [address]) Building [place], [place] 9th Floor, Clinic [id number] [place] [address] [place] [address] [place] [address] Social History Tobacco Use Types Packs/Day Years Used Date Smoking Tobacco: Every Day Cigarettes 0.3 2 Alcohol Use Standard Drinks/Week Comments Yes 0 (1 standard drink = 0.6 oz pure alcoho l) occasional Sex Assigned at Date Recorded Not on file documented as of this encounter Plan of Treatment Scheduled Referrals Name Type Priority Associated Diagnoses Order S chedule OCCUPATIONAL THERAPY Referral Routine Vision loss Ordered : 11/14/2013 REFERRAL documented as of this encounter Visit Diagnoses Diagnosis Vision loss - Primary Unspecified visual loss documented in this encounter Care Teams Hedge Trimmer Relationship Specialty Start Date End Date Teresa Vaughan PCP - General Family Practice 05/29/13 05/30/17 [facility] [address] [facility] [place] [address] documented as of this encounter
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
--- OUTSIDE RECORDS SUMMARY | 2022-06-13 21:41 | XMS_ITS | Encounter Summary ---
:1975 Author Organization [facility] Address [address] [place] [address] Care Team Providers Name Role Phone Teresa Vaughan Primary Care Provider Montana Meyer MD Unavailable Jeremy Gibbs MD Unavailable Jose Monahan MD Unavailable Lise Mcqueen MD Unavailable [phone] Mar Alfaro Primary Care Provider Lise Mcqueen MD Unavailable [phone] Jonh Garcia MD Unavailable aT Lane OD Unavailable Encounter Details Date Type Department Care Team Description 06/05/2013 Office Visit-P INTERFACE P DEPT Laurie Berg C OT Social History Tobacco Use Types Packs/Day Years Used Date Smoking Tobacco: Every Day Cigarettes 0.3 2 Alcohol Use Standard Drinks/Week Comments Yes 0 (1 standard drink = 0.6 oz pure alcoho l) occasional Sex Assigned at Date Recorded Not on file documented as of this encounter Progress Notes Laurie Berg, DIANE - 06/05/2013 7:30 AM CDT Criminal Justice Program Director: aLurie Berg Status: Final Encounter: 2013-06-05 07:30:00.000 Type: Rooming Note Reason For Visit KEY LUCIANO is a 38 year old female being seen in clinic for evaluation of blurry vision of righteye and loss of vision of left eye, per pt. Do you have any other appointments, tests or procedures within the [facility] system for this same day? No. Pain Eval Current history of pain associated with this visit is denied. Personal Hx Behavioral history: No tobacco use. Home environment: No secondhand tobacco smoke in home. Allergies No Known Drug Allergy. Current Meds Med list offered and patient declined. Bactrim DS 800-160 MG Tablet;TAKE 1 TABLET TWICE DAILY for 10 days as instructed; RPT Benzoyl Peroxide Wash 5 % Liquid;USE WASH ONCE DAILY DIRECTED.; RPT Docusate Sodium 100 MG Tablet;TAKE 1 TABLET TWICE DAILY; RPT Gabapentin 600 MG Tablet;TAKE 1 TABLET 3 TIMES DAILY for 3 days; RPT Gabapentin 300 MG Capsule;TAKE 3 TABLET 3 TIMES DAILY; RPT Ibuprofen 600 MG Tablet;TAKE 1 TABLET 4 TIMES DAILY.; RPT Multivital Tablet Chewable;CHEW AND SWALLOW 1 TABLET DAILY.; RPT Polyethylene Glycol 3350 Packet;TAKE 1 PACKET DAILY; RPT Trazodone HCl 100 MG Tablet;TAKE 1 TABLET BEDTIME; RPT Tylenol 325 MG Tablet;TAKE 2 TABLET EVERY 4 HOURS as needed; RPT Venlafaxine HCl 100 MG Tablet;TAKE 1 TABLET TWICE DAILY WITH MEALS.; RPT Lactinex Packet;TAKE 1 PACKET TWICE DAILY for two months; RPT UNKNOWN TO PATIENT;Aripiprazole 2.5 mg twice daily; RPT AAA-MED RECONCILE;PER PT LIST; RPT. Med list offered and patient declined. Signature Signed By: Laurie Berg ; 06/05/2013 10:39 AM COTTON TIPPER. documented in this encounter Plan of Treatment Not on filedocumented as of this encounter Visit Diagnoses Not on filedocumented in this encounter Care Teams Beater Tender Relationship Specialty Start Date End Date Teresa Vaughan PCP - General Family Practice 05/29/13 05/30/17 [facility] [address] [place] [address] Mar Alfaro PCP - General 05/31/17 [facility] [address] [place] [address] Montana Meyer MD MD Ophthalmology 12/10/14 05/30/17 [facility] [address] [place] [address] Jeremy Gibbs MD MD Ophthalmology 12/10/14 Jose Monahan MD MD Ophthalmology 12/10/14 Lise Mcqueen MD Ophthalmology 05/31/17 [address] [facility] [address] [place] [address] Lise Mcqueen, Assigned Surgical Provider 10/11/20 [address] [facility] [address] [place] [address] Jonh Garcia MD Assigned Surgical Provider 10/12/[address] [place] [phone], ILDA Assigned Surgical Provider 01/02/[address] [place] [address] documented as of this encounter
--- OUTSIDE RECORDS SUMMARY | 2022-06-13 21:43 | XMS_ITS | Encounter Summary ---
:1975 Author Organization [facility] Address [address] [place] [address] Care Team Providers Name Role Phone No Primary/Referring, Phy Primary Care Provider Unavailable Encounter Details Date Type Department Care Team Description 09/13/2021 Orders Only [facility] NE8 Brandon Murphy MD [address] [facility] [address] [place] [address] [place] [address] [phone] (Wo rk) Social History Tobacco Use Types Packs/Day Years Used Date Smoking Tobacco: Former Smokeless Tobacco: Never Alcohol Use Standard Drinks/Week Comments Not Currently 0 (1 standard drink = 0.6 oz pure alcoho l) In Tx Alcohol Habits Answer Date Recorded How often do you have a drink containing alcohol? Never 05/24/2021 How many drinks containing alcohol do you have on a typical Not asked day when you are drinking? How often do you have six or more drinks on one occasion? No t asked Food Insecurity Answer Date Recorded Within the past 12 months, you worried that your food Someti mes true 09/04/2021 would run out before you got money to buy more. Within the past 12 months, the food you bought just Sometime s true 09/04/2021 didn't last and you didn't have money to get more. Sex Assigned at Date Recorded Not on file documented as of this encounter Plan of Treatment Not on filedocumented as of this encounter Visit Diagnoses Not on filedocumented in this encounter Care Teams Geographic Information Systems Engineer Relationship Specialty Start Date End Date No Primary/Referring, Jackson PCP - General 08/31/21 documented as of this encounter
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
--- OUTSIDE RECORDS SUMMARY | 2022-06-13 21:43 | XMS_ITS | Encounter Summary ---
:1975 Author Organization [facility] Address [address] [place] [address] Care Team Providers Name Role Phone No Primary/Referring, Phy Primary Care Provider Unavailable Encounter Details Date Type Department Care Team Description 09/03/2021 Orders Only RH W2 OBSERVATION Leah Salazar MD [address] [facility] [address] [place] [address] [place] [address] [phone] (Wo rk) Social History Tobacco Use Types [...] on filedocumented in this encounter Care Teams Chemical Engineering Professor Relationship Specialty Start Date End Date No Primary/Referring, Phy PCP - General 08/31/21 documented as of this encounter
--- OUTSIDE RECORDS SUMMARY | 2022-06-13 21:43 | XMS_ITS | Encounter Summary ---
:1975 Author Organization [facility] Address [address] [place] [address] Care Team Providers Name Role Phone No Primary/Referring, Phy Primary Care Provider Unavailable Reason for Referral Consult/Transfer Care (Routine) - Incomplete Specialty Diagnoses / Procedures Referred By Contact Refer red To Contact Diagnoses Migraine without status migrainosus, not intractable, unspecified migraine type Hypertension, unspecified type (HRC) Brandon Murphy MD [address] [place] [id number] Referral ID Status Reason Start Date Expiration Date Visits V isits Requested Authorized [id number] Incomplete 09/13/2021 12/12/2021 1 1 Scheduling Instructions If scheduling assistance is needed, plea se inquire with the Hospital staff upon discharge. 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 The r ecommended service and/or location may not be covered by your insurance plan. Please c all the number on your insurance card to find out your specific benefits and coverage for the recommended services and/or location. If you need help scheduling the recommen ded services, please ask your clinician's staff to assist you. [employer] Consult/Transfer Care (Routine) - Incomplete Specialty Diagnoses / Procedures Referred By Contact Refer red To Contact Diagnoses PTSD (post-traumatic stress disorder) (HRC) Brandon Murphy MD [address] [place] [address] Referral ID Status Reason Start Date Expiration Date Visits V isits Requested Authorized [id number] Incomplete 09/12/2021 12/11/2021 1 1 Scheduling Instructions If scheduling assistance is needed, sebastian bateman inquire with the Hospital staff upon discharge. [employer] Consult/Transfer Care (Routine) - Incomplete Specialty Diagnoses / Procedures Referred By Contact Refer red To Contact Diagnoses Major depression (HRC) Brandon Murphy MD [address] [place] [address] Referral ID Status Reason Start Date Expiration Date Visits V isits Requested Authorized [id number] Incomplete 09/12/2021 03/11/2022 1 1 Scheduling Instructions This order is your clinician's recommend ation for a service and is not an insurance referral which authorizes payment. The r ecommended service and/or location may not be covered by your insurance plan. Please c all the number on your insurance card to find out your specific benefits and coverage for the recommended services and/or location. If you need help scheduling the recommen ded services, please ask your clinician's staff to assist you. [employer] Reason for Visit Auth/Cert Specialty Diagnoses / Procedures Referred By Contact Refer red To Contact Diagnoses Suicidal ideation . 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 (HR); [phone] Major depressio n; PTSD (post-trau matic stress disorder); Migraine withou t status migrainosus, not intractable, unspecified migraine type; Hypertension, u nspecified type; Mild cognitive impairment with memory loss; MDD (major depr essive disorder), recurrent severe, without psychosis (HRC); Insomnia, unspe cified type Social History Tobacco Use Types Packs/Day Years [...] Comments Blood Pressure 123/58 09/13/2021 11:00 AM [employer] Pulse 86 09/13/2021 11:00 AM [employer] Temperature 36.8 ??C (98.2 ??F) 09/13/2021 11:00 AM [employer] Respiratory Rate 16 09/13/2021 11:00 AM [employer] Oxygen Saturation 96% 09/13/2021 11:00 AM [employer] Inhaled Oxygen Concentration - - Weight 102.2 kg (225 lb 3.2 oz) 09/08/2021 8:00 AM [employer] Height 157.5 cm (5' 2) 09/08/2021 8:00 AM [employer] Body Mass Index 41.19 09/08/2021 8:00 AM [employer] documented in this encounter Discharge Summaries Rudy Rees RN - 09/13/2021 1:41 PM CST [facility] Discharge Note - Nursing Admission Date/Time: 09/03/2021 8:33 PM Attending MD: Brandon Murphy MD Patient discharged: Home with parents . Discharge Date: 09/13/2021 Discharge Time: 2:45 PM Patient accompanied by: Relative/Mother Transported by: Walked Valuables were taken home by patient: Yes Discharge instructions given and explained to patient: Yes Discharge Patient Education Plan completed, taught, and provided to patient/caregiver at discharge: Yes ?? Discussed medication risks with patient ?? Patient understands medications usage and side effects ?? Patient understands diagnosis ?? Action Plan for management of symptoms/side effects/complications requiring medical attention established and shared with patient/caregiver Was patient discharged on Warfarin? {(Do not delete line; Warfarin documentation is required) No Patients general condition on discharge: Patient able to comprehend/communicate for needs alert and oriented x3 during discharge educations. Medications adminstration time, frequency and dosage of medication Education given to the patient with the present of mother. 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 She complains of having severe memory and anxiety issues. She complains of constant anxiety withchest tremors, unsteadiness and thinks about wanting her life to end but has no plan to hurt herself. She is unable to recall when these symptoms started happening. She is upset that her memory is so poor. 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 However, she does not know when she last worked. She thinks that she was most recently living with her daughter and her daughter's boyfriend at her house in [place] near [place]. Patient has history of drinking and was most recently living in sober housing but can't recall that she has drank any alcohol in a long time. When informed about the alcohol withdrawal seizure last week she was surprised, how would I get alcohol livingthere? She is a very poor historian during the interaction but was oriented to day, month, year and [facility], date was off by 1 day and she thinks [place] is president. Patient is hoping that her parents will come get her and take her home with them. Discussed recommendation to remain in the hospital for a few days to monitor her. She agreed but requested more medications for anxiety. Chemical Dependency History, Past Psychiatric History, Family History and Past Medical History: See Admission Note completed by Dr Carmen Bautista on 09/04. Lab Studies, EKG & other diagnostic testing I attest that this patient received metabolic screening (including lipid panel, BMI, blood pressure,fasting glucose or HgbA1C) in the last twelve months. Hospital Course The multidisciplinary treatment team met (RN, OT, adoption social worker, Physician) on a daily basis to discuss patient care and treatment planning. The psychiatric inpatient setting provided close nursing supervision and access to multiple treatment modalities and programming (group therapy, OT, one-to-one therapy.) Patient support systems such as family, disease case manager rn, and other care providers were contacted as appropriate for collateral information and treatment planning. 1. Medication Trials and Changes: 09/04/2021:??Continue on SENIOR RESEARCH FELLOW Donepezil 10mg qhs, Cymbalta 60mg daily, Melatonin 3mg qhs. Zyprexa was stopped due to possible anticholinergic properties worsening AMS. Increased Gabapentin to 400mg QID for alcohol withdrawal syndrome.??Will stop Vistaril when pt is less anxious. 09/05/2021: No change today. 09/06/2021: Increase Gabapentin to 600mg QID for possible alcohol withdrawal syndrome. 09/07/2021: Added back PRN Zyprexa as memory has not changed since discontinuing. 09/08: high dose thiamine 200 mg IM tid 09/09: Increase duloxetine to 90 mg; Consolidate gabapentin to 1200 mg bid 09/11: Continue thiamine IM; Start naltrexone 12.5 mg daily. Trazodone 25 mg prn. Watch for Serotonin syndrome 2. Legal Status: voluntary 3. Group Attendance: limited 4. Level of cooperation and Medication adherence: good 5. Change in psychiatric symptoms: eKy Peres is a 46 y.o. old female with history of severe alcohol use disorder, TBI with cognitive impairment from 2012, depression and anxiety??who??was initially admitted to medical unit for worsening memory loss and suicidal ideation from sober housing. She had a recent admission to??[facility] 08/26 - where she had a witnessed seizure lasting 5 minutes suspected 2/2 alcohol withdrawal. Patient is a very unreliable historian on admission.??She admits to being hopeless with passive suicidal ideation but no intent or plan in the context of her worsening memory impairment and decline in function. Wernicke's encephalopathy may be contributing to her amnesia given evidence of relapse toalcohol since the fall in the context of a vulnerable brain and possible poor nutrition.??Patient received IV thiamine without much improvement. She was also seen by neurology and had EEG with without any seizure activity. Due to ongoing anxiety and passive SI, patient was transferred to inpatient psychiatry as a voluntary patient. Upon admission to psychiatry, patient remains anxious and is a poor historian. Will complete a MOCA and monitor patient for a few days. Concern that alcohol use is a contributing factor in her presentation given her recent alcohol withdrawal seizure.The treatment team has initiated appropriate safety precautions. ??The patient is being admitted for evaluation, stabilization and treatment for the working diagnosis of cognitive impairment vs encephalopathy vs substance-induced depression.? 09/05/2021: MOCA score of 17/30, will reassess again next week once psychiatrically more stable. Anxiety slightly improved today but still a little irritable. Patient wants to return home after discharge. Will need to determine if she is safe to live independently first. 09/06/2021: Ongoing complaint of constant anxiety. Also complaining of migraine. Titrating gabapentinto address anxiety. 09/07 More anxious and distressed today. Memory still very impaired. Head CT from 06/14/21 did show increased atrophy compared to [address] Suspect that this finding and recent alcohol abuse contributing to her recent memory issues. Recommend repeating MOCA later this week. May need to consider CPT to determine level of care she needs on discharge. Also need neuropsych testing after discharge. 09/08: Still ahving memeory issues. Due to concern for WKS will start high-dose IM thiamine for a few days. Will reasses MOCA once this is done. 2: Key still has memeory issues, some confusion and anxiety. Due to issues with migraine will increase duloxetine and cosolidate gabapentin. Discussed naltrexone that she is not keen on. 09/10: Key is still very resistant to any form of intervention for AUD. At this time, if she were to go home we need to ensure that she has appropriate support and resources. She does have chronic issues with TBI and AUD but these issues can be addressed even if she were to go home with the appropriate wraparound services. She is taking her meds and has been cooperative in spite of her desire to leave. There is little for us to commit her - an extreme option - since she does not have e/o SI, HI, AHor VH. Her family may choose to become her guardian and make decisions for her, but this is not something that can be solved urgently and can be done outpatient. She could benefir from sober housing but she has to be willing to engage and be ready to complete treatment but how much it will be of use to her, how much she will remember, and how much she will benefit in the residential is debatable. 09/11: Key seems to be doing much better with an improvement in anxiety likely due to gabapentin and duloxetine. Both meds may also help with migraine. We do have to watch for serotonin symdrome with imitrex, trazodone and duloxetine. Her MoCA has improved dramatically which may be due to thiamine repletion. Hence we have continued the IM thiamine till DC. She is also agreeable to starting naltrexone and we will ramp it up and transition to IM injection outpatient. 09/12: Key has definitely improved in terms of memory after starting IM thiamine. She still has some symptoms of anxiety, insomnia and poor sleep likely due to heavy alcohol use and her current situation. Nonetheless, she is definitely markedly better than admission. She has the capacity and cognitive ability to make decisions for herself. There is no e/o dangerousness to self or others and she has been compliant with cares. Hence, we have helped with setting up services, appropriate follow up, anddiscussed the importance of sobriety with the role of meds. 09/13: On the day of discharge I spoke with Key and with her mom. Mom agreed that Key looked andwas doing much better. We discussed the importance of abstinence from alcohol use. Many of her symptoms could be traced back to alcohol use hence abstinence may be helpful in improving her mood, reducing anxiety, reducing insomnia and decreasing BP. On the day, Key denied any SI, HI, , AH or VH. She was future oriented and looked forward to getting better. Her family was supportive and they cameup with a plan to stay with her and for her son to keep an eye on her. 6. Discharge planning and coordination of care: Key Peres??is a 46 y.o.??female??who had been admitted for??memory impairment and suicidal ideation??from medicine. ??The patient and was Voluntary??status. ??The patient carries a diagnosis of depression, anxiety, alcohol use disorder and TBI with cognitive impairment. PT had admitted??from sober living??with??SI and concern for worsening memory loss. She was admitted to [facility] 08/26 - where she had a witnessed seizure lasting 5 minutes suspected 2/2 alcohol withdrawal. PT startedon Naltrexone and appears to be tolerating. MOCA score improvement and appearing more organized in thought. PT anxiety decreasing, denies SI. Pt has scheduled follow-up with [facility]LE[facility], behavioral health 09/15 with Rebecca Mcqueen at 3:15 and Mar Alfaro, primary care on 09/16 at 12:45. Pt will be residing withparents upon discharge. Tobacco: Smoking cessation counseling provided. Patient is not interested in quitting at this time At the time of discharge, there appeared to be no evidence that the patient posed an imminent threatto self or others and a reasonable discharge plan was in place, we determined that the patient had achieved optimal medical benefit from hospitalization and was discharged with follow-up as detailed below. Consults Medicine: Acute migraine headache -Improvement with Imitrex and hx of migraine headaches suggests that this is the cause. No indication for further evaluation at this time. -resume PRN imitrex at discharge ?? HTN BP stable on amlodipine alone, even soft at times. Continue to hold metoprolol and chlorthalidone after discharge (discussed with patient, wrote in discharge instructions) -hold metoprolol due to bradycardia -restart amlodipine 2.5mg with hold parameters -Hold SENIOR RESEARCH FELLOW chlorthalidone and amlodipine -follow up with PCP next week for BP check (in office, not telemedicine) ?? Chronic Issues: Alcohol substance use disorder -Continue supportive vitamins ?? Traumatic Brain Injury -SENIOR RESEARCH FELLOW Aricept ?? Chronic Pain -SENIOR RESEARCH FELLOW gabapentin, cymbalta Mental Status Exam on Discharge BP 94/63 Pulse 75 Temp 97.6 ??F (36.4 ??C) (Oral) Resp 18 Ht 5' 2 (1.575 m) Wt 102.2 kg (225 lb 3.2 oz) SpO2 97% BMI 41.19 kg/m?? Appearance:??alert,??neatly groomed Behavior:??cooperative, engaged, pleasant Motor:??no abnormalities Gait and Station:??seated Muscle strength and tone:??No apparent abnormalities. Speech:??normal in rate and loudness, rhythm, prosody and intonation Language:??intact Thought process:??linear Thought content:??No SI, HI, Without any hallucinations or paranoia Associations:??intact Mood:??good Affect:??anxious but definitely better' pleasant and cheerful Orientation: intact Attention and Concentration:??adequate Memory:??immediate recall normal, delayed recall slightly impaired, remote memory impaired; but definitely improving Fund of Knowledge: average Insight: fair Judgement:??fair ?? MoCA: 1730 on admission : 25/30 on 09/11/2021. (She lost 3 points on delayed recall. And lost one point on orientation to city ([place]). She made one minor mistake on sentence repetition and did not begin the trails test at A. If these two are ignored then she would score a 27.) Discharge Plans Condition at discharge:good. Discharge destination: home Labs or testing which should be done or considered in the outpatient setting: None Appointments and Follow Up: Discharge Orders (Non-med) When to Resume Normal Activities: Comments: You may resume normal activities as tolerated Code Status / Reason for Admission / Advance Directive Comments: Code Status: full Reason for Admission: severe alcohol use disorder Health Care Decision Maker / POA: self Low Sodium Diet No Pending Labs Behavioral Health Follow-Ups References: Specialty Connection Question: Appointment Urgency? Answer: Non-Urgent Follow up with your primary care physician Comments: [facility] ([facility]) [phone]; [address], [place] [address] References: Specialty Connection Shanon Salas Consult Page Question Answer Comment What type of follow up? IP Discharge Appointment Urgency? Non-Urgent Reason for visit? Medication management, htn Vital Signs Comments: Please monitor blood pressure regularly Behavioral Health Follow-Ups Comments: Date: Tuesday09/15/2021 Time: 3:15 pm Provider: BAYLEE Valentino. [facility] [address] [place] [address]? References: Specialty Connection Question Answer Comment Appointment Urgency? Non-Urgent Reason for visit? Psychiatry Follow up with your primary care physician Comments: Tuesday09/16/2021 at 12:[address] Mar Alfaro. This will be at the clinic. [facility] [address] [facility]?? [place] [address]?? [phone] References: Specialty Connection Shanon Salas Consult Page Question Answer Comment What type of follow up? IP Discharge Appointment Urgency? Urgent (patient needs to be seen within one week) Reason for visit? Hospital Follow Up Discharge Instructions to Patient Comments: 1. STOP metoprolol. 2. STOP chlorthalidone. 3. STOP potassium. 4. CONTINUE amlodipine. 5. Follow up with your primary care doctor on 09/16 for blood pressure check. Discharge Medications Upon discharge, patient is not on scheduled antipsychotic medications. Discharge Medication List as of 09/13/2021 2:37 PM START taking these medications Details hydrOXYzine pamoate (VISTARIL) 50 MG capsule Take 1 Capsule (50 mg) by mouth daily as needed for Anxiety. Indications: Feeling Anxious, Disp-30 Capsule, R-0, DAILY PRN Starting 09/13/2021, Oral, E-Prescribing melatonin 3 MG tablet Take 2 Tablets (6 mg) by mouth at bedtime as needed for Insomnia., Disp-30 Tablet, R-3, HS PRN Starting 09/13/2021, Oral, E-Prescribing multivitamin with minerals tablet Take 1 Tablet by mouth daily., Disp-30 Tablet, R-4, DAILY StartingSun 09/13/2021, Oral, E-Prescribing naltrexone (REVIA) 50 MG tablet Multiple Dosages:DAILY Starting 09/13/2021, Until 09/19/2021 [id number], For 7 days, THEN DAILY Starting 09/20/2021, Until 09/26/2021 at 2359, For 7 days, THEN DAILY Starting 09/27/2021, Until 10/26/2021 at 2359, For 30 daysTake 0.25 Ta blets (12.5 mg) by mouth daily for 7 days, THEN 0.5 Tablets (25 mg) daily for 7 days, THEN 1 Tablet (50 mg) daily. Once you reach a dose of 50 mg please discuss with your doctor if you want the dose to be increased [id number] mg. You can also discuss init iating once monthly Revia injection (naltrexone).. Indications: Abuse or Misuse of Alcohol., Disp-36 Tablet, R-3, Oral, E-Prescribing CONTINUE these medications which have CHANGED Details donepezil (ARICEPT) 10 MG tablet Take 1 Tablet (10 mg) by mouth daily at bedtime., Disp-30 Tablet, R-3, HS Starting 09/13/2021, Oral, E-Prescribing DULoxetine (CYMBALTA) 30 MG capsule Take 3 Capsules (90 mg) by mouth daily. Indications: GeneralizedAnxiety Disorder, Major Depressive Disorder, Disp-90 Capsule, R-3, DAILY Starting 09/13/2021, Oral, E-Prescribing gabapentin (NEURONTIN) 400 MG capsule Take 3 Capsules (1,200 mg) by mouth two times a day. Indications: Alcohol Withdrawal Syndrome, Neuropathic Pain, Disp- 180 Capsule, R-3, BID Starting 09/13/2021, Oral, E-Prescribing thiamine 100 MG tablet Take 1 Tablet (100 mg) by mouth daily., Disp-30 Tablet, R-3, DAILY Starting 09/13/2021, Oral, E-Prescribing CONTINUE these medications which have NOT CHANGED Details amLODIPine (NORVASC) 2.5 MG tablet Starting 05/23/2021, Historical cholecalciferol (VITAMIN D3) 25 MCG (1000 UT) tablet Take 1,000 Units by mouth., Oral, Historical SUMAtriptan (IMITREX) 25 MG tablet TAKE 1 TABLET BY MOUTH AT ONSET OF MIGRAINE. IF HEADACHE PERSISTSAFTER 2 HOURS, TAKE ANOTHER DOSE. MAX OF 2 TABLETS IN 24 HOURS., Historical STOP taking these medications metoprolol succinate (TOPROL XL) 100 MG 24 hour release tablet Comments: Reason for Stopping: potassium bicarbonate-citric acid (EFFER-K) 20 MEQ effervescent tablet Comments: Reason for Stopping: traZODone (DESYREL) 50 MG tablet Comments: Reason for Stopping: Discharge Summary and Discharge Coordination of Care is 45 minutes. Report completed and signed by: Brandon Murphy MD 09/13/2021, 8:40 AM [employer] documented in this encounter Discharge Instructions Discharge InstructionsLisa Garcia Krystian - 09/12/2021 12:14 PM CST Resources 1. [facility] [place] [facility] [address] [facility], [place], [place] [id number] [place] [address] ([employer] [place] [employer]) improves the lives of children and adults with mental illnesses and their families by providing free classes on mental illnesses and support groups for adults with mental illnesses, parents and family members. For more information: Toll free: 8-922-LZRC-LAN-Power Website: www.namihelps.org 2. Online go to: www.[place]Help.info 3 [facility] ([facility] & [address] [phone] Crisis Line Numbers 1. [facility] [phone] 2. [facility] ([facility]) [phone] 3. [facility] [phone] or [phone] 4. National Suicide Prevention Lifeline (TALK) RVISOR HOT DIP PLATING documented in this encounter Medications at Time of Discharge Medication Sig Dispensed Refills Start Date End Date amLODIPine (NORVASC) 2.5 0 05/23/2021 MG tabletIndications: Hypertension cholecalciferol (VITAMIN Take 1,000 Units by 0 D3) 25 MCG (1000 UT) mouth. tabletIndications: Vitamin D Deficiency donepezil (ARICEPT) 10 TAKE 1 TABLET (10 30 Tablet 3 202109/13/2022 MG tablet MG) BY MOUTH DAILY AT BEDTIME. DULoxetine (CYMBALTA) 30 TAKE 3 CAPSULES (90 90 Capsule 3 09/13/2022 MG capsule MG) BY MOUTH DAILY. INDICATIONS: GENERALIZED ANXIETY DISORDER, MAJOR DEPRESSIVE DISORDER gabapentin (NEURONTIN) TAKE 3 CAPSULES 180 Capsule 3 022 09/13/2022 400 MG capsule (1,200 MG) BY MOUTH TWO TIMES A DAY. INDICATIONS: ALCOHOL WITHDRAWAL SYNDROME, NEUROPATHIC PAIN melatonin 3 MG tablet TAKE 2 TABLETS (6 30 Tablet 3 022 09/13/2022 MG) BY MOUTH AT BEDTIME NEEDED FOR INSOMNIA. Multiple TAKE 1 TABLET BY 30 Tablet 4 09/13/2021 09/13/19 23 Vitamins-Minerals MOUTH DAILY. (CERTAVITE/ANTIOXIDANTS) TABS multivitamin with Take 1 Tablet by 30 Tablet 4 09/13/2021 minerals tablet mouth daily. naltrexone (REVIA) 50 MG TAKE ONE-QUARTER 36 Tablet 3 09/1309/13/2022 tablet TABLET BY MOUTH DAILY FOR 7 DAYS, THEN ONE-HALF TABLET DAILY FOR 7 DAYS, THEN 1 TABLET DAILY. PLEASE DISCUSS WITH YOUR DOCTOR IF YOU WANT THE DOSE TO BE INCREASED BEYOND 50 MG, OR DISCUSS MONTHLY NALTREXONE INJECTIONS. INDICATIONS: SUMAtriptan (IMITREX) 25 TAKE 1 TABLET BY 0 05/19 MG tabletIndications: MOUTH AT ONSET OF Migraine MIGRAINE. IF HEADACHE PERSISTS AFTER 2 HOURS, TAKE ANOTHER DOSE. MAX OF 2 TABLETS IN 24 HOURS. thiamine 100 MG tablet Take 1 Tablet (100 30 Tablet 3 09/13 mg) by mouth daily. Thiamine Mononitrate TAKE 1 TABLET (100 30 Tablet 3 09/13/2 022 09/13/2022 (B1) 100 MG TABS MG) BY MOUTH DAILY. documented as of this encounter Progress Notes Shilpi Gonzalez PA-C - 09/12/2021 10:09 PM CST [facility] Medicine Progress Note Patient Name: Key Peres Attending: Brandon Murphy MD Date of Service: 09/12/2021 Subjective: Patient seen in room, resting in bed. Denies any headaches last night. Excited to discharge tomorrow. Objective: Most Recent Vital Signs: Min and Max Vital Signs (24 hours): Temp: 97.6 ??F (36.4 ??C) BP: 94/63 Pulse: 75 Resp: 18 SpO2: 97 % Temp Min: 97.6 ??F (36.4 ??C) Max: 98.2 ??F (36.8 ??C) BP Min: 94/63 Max: 124/73 Pulse Min: 73 Max: 75 Resp Min: 16 Max: 18 SpO2 Min: 97 % Max: 99 % Gen: Well-appearing, resting comfortably in bed. HEENT: normocephalic, atraumatic, extraocular movements intact, sclerae anicteric, moist mucus membranes Neck: Supple, no JVD Resp: Even, non-labored. Ext: Warm and well-perfused, no cyanosis, clubbing, or edema Skin: Warm and dry, no rash or lesions, no jaundice Neuro: AOx3, comprehensive exam deferred but no focal deficits noted Psych: normal affect Labs: Reviewed and notable for the following: No pertinent findings EKG/Imaging/Procedure/Other: EKG 09/02/[address] & T wave abnormality, consider anterior ischemia Prolonged QT Abnormal ECG Assessment and Plan: 46 y.o. old female with a PMHx significant for alcohol dependence, dementia, traumatic vertebral fractures, TBI, depression, anxiety, PTSD w/a history of migraine headaches who is admitted to psychiatry following alcohol withdrawal and seizures due to memory impairment and suicidal ideations. She is being followed by hospital medicine for management of her headaches and other medical concerns. Acute migraine headache -Improvement with Imitrex and hx of migraine headaches suggests that this is the cause. No indication for further evaluation at this time. -resume PRN imitrex at discharge HTN BP stable on amlodipine alone, even soft at times. Continue to hold metoprolol and chlorthalidone after discharge (discussed with patient, wrote in discharge instructions) -hold metoprolol due to bradycardia -restart amlodipine 2.5mg with hold parameters -Hold SENIOR RESEARCH FELLOW chlorthalidone and amlodipine -follow up with PCP next week for BP check (in office, not telemedicine) Chronic Issues: Alcohol substance use disorder -Continue supportive vitamins Traumatic Brain Injury -SENIOR RESEARCH FELLOW Aricept Chronic Pain -SENIOR RESEARCH FELLOW gabapentin, cymbalta Depression and Anxiety w/suicidal ideations -Management per primary team (psychiatry) Medicine team will continue to follow, please page/call with questions. FEN - Regular Diet Ppx - Encourage ambulation CODE - Full Shilpi Gonzalez PA-C Department of [facility] Medicine Pager on AMION RVISOR HOT DIP PLATING Brandon Murphy MD - 09/12/2021 9:11 AM CST [facility] Psychiatry Progress Note PATIENT NAME: Key Peres DATE OF SERVICE: 09/10/2021 ATTENDING PRACTITIONER: Brandon Murphy MD HOSPITAL DAY #9 CHIEF COMPLAINT Can I leave now? INTERVAL HISTORY Key was seen for regular follow up. She asked about DC and I discussed my concerns with her including alcohol use, memory issues, home safety. She has good family support from parents, siblings and children. She was also willing to set up and follow up with her outpatient providers. We discussed the problems with alcohol use including insomnia, anxiety, memory issues, depression and the dangers ofcontinued use such as recent withdrawal seizures. She denied any SI, HI, , AH or VH. Her sleep waspoor yesterday and very restless and unsatisfactory. She did note a decrease in headaches and anxiety during this admission. She tolerated the dose of naltrexone yesterday. She personally coordinated her care with her parents and family. Of note, her memory is also improving quite a bit with her remembering this such as her parents' number and her previous sober house, her address REVIEW OF SYSTEMS Constitutional: Positive for migraine-chronic issue but has constant headache since admission. Has bradycardia, low BP Psychiatric:, memory issues. Denies SI, HI, AH or VH Medication Side effects: None reported CHART REVIEW & MULTIDISCIPLINARY TEAM MEETING Met with the multidisciplinary treatment team and discussed care and treatment planning. OBJECTIVE Hours of Sleep: Patient Vitals for the past 72 hrs: Hours 09/12/21 0640 5 HOURS 09/11/21 2200 0 HOURS 09/11/21 1445 1 HOURS 09/11/21 0700 5.8 HOURS 09/10/21 2200 0 HOURS 09/10/21 1400 2 HOURS 09/10/21 0627 7 HOURS 09/09/21 2200 1.3 HOURS 09/09/21 1500 2.8 HOURS LABS: No results found for this or any previous visit (from the past 24 hour(s)). EKG: Sinus bradycardia Otherwise normal ECG When compared with ECG of 02-SEP-2021 13:36, Vent. rate has decreased BY 27 BPM T wave inversion no longer evident in Anterior leads QT has shortened Last Liver Panel results: Component Value ALKPHOS 52 BILIRUBINTOT 0.6 BILIRUBINDIR 0.2 ALT 18 AST 12 TPRO 6.4 ALB 3.6 Last CBC w/differential result: Component Value WBC 9.6 RBC 5.11 (H) HGB 14.1 HCT 42.7 MCV 83.6 MCH 27.6 MCHC 33.0 PLTS 314 RDW 15.3 Component Value BUN 6 (L) SODIUM 140 K 3.5 CHLORIDE 104 BICARB 30 (H) GLUCOSE 98 CREATININE 0.80 GFR >60 CA 9.0 ANIONGAP 6 (L) Current Facility-Administered Medications Medication Dose Route Frequency ??? acetaminophen (TYLENOL) tablet 650 mg 650 mg Oral Q6H PRN ??? amLODIPine (NORVASC) tablet 2.5 mg 2.5 mg Oral Daily ??? sennosides-docusate sodium (SENOKOT S) 8.6-50 MG per tablet 2 Tablet 2 Tablet Oral BID PRN And ??? polyethylene glycol (MIRALAX) oral powder 17 g 17 g Oral DAILY PRN And ??? bisacodyl (DULCOLAX) rectal suppository 10 mg 10 mg Rectal DAILY PRN ??? calcium carbonate (TUMS) chewable tablet 1,000 mg 1,000 mg Oral Q4H PRN ??? donepezil (ARICEPT) tablet 10 mg 10 mg Oral At Bedtime ??? DULoxetine (CYMBALTA) delayed release capsule 90 mg 90 mg Oral Daily ??? gabapentin (NEURONTIN) capsule 1,200 mg 1,200 mg Oral BID ??? hydrOXYzine pamoate (VISTARIL) capsule 50 mg 50 mg Oral Q6H PRN ??? melatonin tablet 3 mg 3 mg Oral At Bedtime ??? melatonin tablet 6 mg 6 mg Oral At bedtime PRN ??? [Held by provider in Manage Orders] metoprolol succinate (TOPROL XL) extended release tablet 50 mg 50 mg Oral Daily ??? multivitamin with minerals tablet 1 Tablet 1 Tablet Oral Daily ??? naltrexone (REVIA) tablet 12.5 mg 12.5 mg Oral Daily ??? nicotine (NICODERM CQ) 21 MG/24HR 1 Patch 1 Patch Transdermal Daily ??? OLANZapine (ZyPREXA) tablet 5 mg 5 mg Oral BID PRN ??? ondansetron (ZOFRAN-ODT) disintegrating tablet 4 mg 4 mg Oral Q8H PRN ??? SUMAtriptan (IMITREX) tablet 50 mg 50 mg Oral ONCE PRN ??? thiamine (VITAMIN B-1) injection 200 mg 200 mg Intramuscular TID ??? [Held by provider in Manage Orders] thiamine (VITAMIN B-1) tablet 100 mg 100 mg Oral Daily ??? traZODone (DESYREL) tablet 25 mg 25 mg Oral At bedtime PRN ALLERGY No Known Allergies MENTAL STATUS EXAM BP 124/73 Pulse 73 Temp 98.2 ??F (36.8 ??C) Resp 16 Ht 5' 2 (1.575 m) Wt 102.2 kg (225 lb3.2 oz) SpO2 99% BMI 41.19 kg/m?? Appearance: alert, casually groomed Behavior: cooperative, engaged, pleasant Motor: no abnormalities Gait and Station: seated Muscle strength and tone: No apparent abnormalities. Speech: normal in rate and loudness, rhythm, prosody and intonation Language: intact Thought process: linear Thought content: No SI, HI, Without any hallucinations or paranoia Associations: intact Mood: fine Affect: anxious but definitely better' pleasant and cheerful Orientation: intact Attention and Concentration: adequate Memory: immediate recall normal, delayed recall slightly impaired, remote memory impaired; but definitely improving Fund of Knowledge: average Insight: limited to fair Judgement: fair MoCA: 17/30 on admission : 25/30 on 09/11/2021. (She lost 3 points on delayed recall. And lost one point on orientation to city ([place]). She made one minor mistake on sentence repetition and did not begin the trails test at A. If these two are ignored then she would score a 27.) IMPRESSION Key Peres is a 46 y.o. old female with history of severe alcohol use disorder, TBI with cognitive impairment from 2012, depression and anxiety who was initially admitted to medical unit for worsening memory loss and suicidal ideation from sober housing. She had a recent admission to [facility] 08/26 - where she had a witnessed seizure lasting 5 minutes suspected 2/2 alcohol withdrawal. Patient is a very unreliable historian on admission. She admits to being hopeless with passive suicidal ideation but no intent or plan in the context of her worsening memory impairment and decline in function. Wernicke's encephalopathy may be contributing to her amnesia given evidence of relapse to alcohol since the fall in the context of a vulnerable brain and possible poor nutrition. Patient received IV thiamine without much improvement. She was also seen by neurology and had EEG with without any seizure activity. Due to ongoing anxiety and passive SI, patient was transferred to inpatient psychiatry as a voluntary patient. Upon admission to psychiatry, patient remains anxious and is a poor historian. Will complete a MOCA and monitor patient for a few days. Concern that alcohol use is a contributing factor in her presentation given her recent alcohol withdrawal seizure.The treatment team has initiated appropriate safety precautions. The patient is being admitted for evaluation, stabilization and treatment for the working diagnosis of cognitive impairment vs encephalopathy vs substance-induced depression. 09/05/2021: MOCA score of 17/30, will reassess again next week once psychiatrically more stable. Anxiety slightly improved today but still a little irritable. Patient wants to return home after discharge. Will need to determine if she is safe to live independently first. 09/06/2021: Ongoing complaint of constant anxiety. Also complaining of migraine. Titrating gabapentinto address anxiety. 09/07/2021: More anxious and distressed today. Memory still very impaired. Head CT from 06/14/21 did show increased atrophy compared to [address] Suspect that this finding and recent alcohol abuse contributing to her recent memory issues. Recommend repeating MOCA later this week. May need to consider CPT to determine level of care she needs on discharge. Also need neuropsych testing after discharge. 09/08: Still ahving memeory issues. Due to concern for WKS will start high-dose IM thiamine for a few days. Will reasses MOCA once this is done. 2: Key still has memeory issues, some confusion and anxiety. Due to issues with migraine will increase duloxetine and cosolidate gabapentin. Discussed naltrexone that she is not keen on. 09/10: Key is still very resistant to any form of intervention for AUD. At this time, if she were to go home we need to ensure that she has appropriate support and resources. She does have chronic issues with TBI and AUD but these issues can be addressed even if she were to go home with the appropriate wraparound services. She is taking her meds and has been cooperative in spite of her desire to leave. There is little for us to commit her - an extreme option - since she does not have e/o SI, HI, AHor VH. Her family may choose to become her guardian and make decisions for her, but this is not something that can be solved urgently and can be done outpatient. 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 2: Key seems to be doing much better with an improvement in anxiety likely due to gabapentin and duloxetine. Both meds may also help with migraine. We do have to watch for serotonin symdrome with imitrex, trazodone and duloxetine. Her MoCA has improved dramatically which may be due to thiamine repletion. Hence we have continued the IM thiamine till DC. She is also agreeable to starting naltrexone and we will ramp it up and transition to IM injection outpatient. 09/12: Key has definitely improved in terms of memory after starting IM thiamine. She still has some symptoms of anxiety, insomnia and poor sleep likely due to heavy alcohol use and her current situation. Nonetheless, she is definitely markedly better than admission. She has the capacity and cognitive ability to make decisions for herself. There is no e/o dangerousness to self or others and she has been compliant with cares. Hence, we have helped with setting up services, appropriate follow up, anddiscussed the importance of sobriety with the role of meds. DIAGNOSES & PLAN Principal Psychiatric Diagnoses: # 1: R/o Wernicke's Encephalopathy # 2: Depression, unspecified, organic vs substance induced vs MDD # 3: Anxiety Disorder, unspecified # 4: Major Neurocognitive Disorder secondary to TBI ?? Substance Use Disorders: Alcohol Use Disorder, severe ?? Medical Concerns to be addressed: Continue oral thiamine. Hypokalemia resolved. ?? Hospital Medicine Discharge Note on 09/03/21: Hospital Course Test results:??Labs remarkable for hypokalemia, potassium prior to discharge was 3.1. ??UDS was negative. LFTs within normal limit throughout admission. Folate WNL and B12 mildly elevated. ??No anemia. Procedures:??EEG completed without??evidence of electrographic seizures or epileptiform discharges Complications:??none ?? Brief hospital course by problem: ?? Memory impairment Recent seizure Subjective worsening of TBI-related memory impairment. Recent hospitalization significant for witnessed seizure with abnormal EEG; was not started on anti- epileptic medication. Presentation was notablefor alcohol level of 0.04, possible that seizure was related to alcohol withdrawal. B12??mildly eleva anthony??and Folate WNL. Neurology consulted and EEG completed without evidence of seizure -??thiamine??level??in process -??Treated with IV thiamine and transitioned to oral thiamine 100 mg daily??at discharge ?? Passive??Suicidal Ideation Presenting complaint of suicidal ideation.??Low acute risk - per collateral at [facility] patient stated she would take all of her pills. Does not have access to medication in the hospital, denies active plan on my interview, denies history of suicide attempts.??Evaluated by psychiatry and she is amenable to voluntary admission. - SENIOR RESEARCH FELLOW olanzapine discontinued due to possible contributions to AMS ?? Hypokalemia Noted to be hypokalemic on admission which was repleted with PO and IV potassium. ??Level improved. ??Started on supplemental K 40 meq BID. ??Continue repletion on discharge. - Will need repeat potassium check with PCP after discharge (or while admitted to psych if prolongedadmission), would aim to check by 09/08 at the latest. ?? Addiction Medicine Consult on 09/02/21: Assessment, Recommendations/Plan: Key Peres??is a 46 y.o.??old female??with a past medical history significant for alcohol use disorder, PTSD, anxiety, memory impairment, TBI??who presented to [facility] for??SI. ?? Alcohol use disorder, seemingly severe Denies recent use but unable to account for recent BAL at 0.04 last week. In sober living. Memory impairment limits evaluation and history. Given memory impairment, CD tx not currently indicated. May consider additional medication support but will defer at this time. PLTs and MCV WNLs. - added on LFTs - Could consider EtG vs. EtS screening to r/o recent alcohol consumption but these have limitations. ?? Neurology Consult on 09/01/21: IMPRESSION:?? 46 yo female with history TBI and recent admission at [facility] with new onset seizure, who presents with continuing confusion and poor memory. Currently she is alert and oriented. Exam is otherwise nonfocal. MRI brain was just done at OSH and does not need repeated here. There were no significant abnormalities on the MRI. EEG was also completed at OSH and showed rhythmic right temporal activity. ?? Her ongoing cognitive changes be due to the recent seizure, history of alcohol abuse, prior TBI, andpossibly underlying psychiatric illness. I doubt C[employer] GASOLINE infection or subclinical seizures. Given recentextensive work up, I will not order any additional testing at this time. ?? I will repeat the EEG today. If this is abnormal, then I would recommend starting Keppra 500 mg bid.If it is normal, then I would not start a medication. It will be most helpful for her to undergo formal neuropsych evaluation as an outpatient.? RECOMMENDATIONS:?? - EEG to rule out continued seizure activity - Agree with B1, B12, folate studies - Start Keppra 500 bid IF EEG abnormal - outpatient neuropsych testing - Neurology will sign off.? Chas Ureña MD?09/01/2021, 1:20 PM Department of Neurology [facility]? Medication Ordered/Consults/Labs/Tests Ordered: 09/04/2021: Continue on SENIOR RESEARCH FELLOW Donepezil 10mg qhs, Cymbalta 60mg daily, Melatonin 3mg qhs. Zyprexa was stopped due to possible anticholinergic properties worsening AMS. Increased Gabapentin to 400mg QID for alcohol withdrawal syndrome. Will stop Vistaril when pt is less anxious. 09/05/2021: No change today. 09/06/2021: Increase Gabapentin to 600mg QID for possible alcohol withdrawal syndrome. 09/07/2021: Added back PRN Zyprexa as memory has not changed since discontinuing. 09/08: high dose thiamine 200 mg IM tid 09/09: Increase duloxetine to 90 mg; Consolidate gabapentin to 1200 mg bid 09/11: Continue thiamine IM; Start naltrexone 12.5 mg daily. Trazodone 25 mg prn. Watch for Serotonin syndrome ?? Milieu Management: Admit to: NE8 Legal: Voluntary but would be holdable if requesting to discharge home Acuity level :Red (caution - at risk, monitored for safety) Encourage the patient to participate in unit activities. RE-CERTIFICATION & RISK ASSESSMENT The patient continues to need, on a daily basis, active inpatient psychiatric treatment for ongoing diagnostic assessment and treatment of the following symptoms: anxiety and worsening memory. The treatment can reasonably be expected to improve the patient's condition. Estimated length of stay is 7-10days. Anticipated disposition: home ?? Risk Assessment: self harm: Low risk assault: Low currently Biopsychosocial Stressors: Difficulty with memory, has not been able to work. Patient Strengths: family/social support, willing to take medications, agreeable to hospitalization,stable housing, has insurance Brandon Murphy MD 09/12/2021, 9:11 AM RVISOR HOT DIP PLATING Coh[place]Shilpi PA-C - 09/11/2021 4:45 PM CST Med Brief Note. Non-billable. Date of Service: 09/11/2021 Chart reviewed, including vital signs, primary team notes and RN notes. Did not require any medication for headache last night. BP stable this AM, received amlodipine 2.5 mg. Vitals: 09/10/21 1600 09/10/21 2100 02/04/22 0800 BP: (!) 152/85 116/85 Pulse: (!) 57 (!) 56 62 Resp: 16 Temp: 98.5 ??F (36.9 ??C) 97.4 ??F (36.3 ??C) SpO2: 100% 94% Weight: If patient were to discharge, would continue amlodipine 2.5 mg daily and continue to hold metoprolol/chlorthalidone as her pressures have intermittently been soft. She should follow up with PCP in 1-2 week after hospitalization (in person visit, not telemedicine). Medicine will continue to follow peripherally. Please see my note from 09/10 for full plan of care. Please page with questions or concerns. Shilpi Gonzalez PA-C Department [facility] Medicine Pager on AMION RVISOR HOT DIP PLATING Brandon Murphy MD - 09/11/2021 2:33 PM CST [facility] Psychiatry Progress Note PATIENT NAME: Key Peres DATE OF SERVICE: 09/10/2021 ATTENDING PRACTITIONER: Brandon Murphy MD HOSPITAL DAY #8 CHIEF COMPLAINT How did I score? INTERVAL HISTORY Key was seen twice first to do a MoCA and then for an interview. SHe was very pleased with her MoCA score. SHe was still a little anxious but felt that the anxiety has come down a little. She has not had good sleep and wanted to know if she can take a trazodone. Noentheless, she felt that she was sleeping poorly because of the environment. She wanted to go back home and agreed to remain here till we make further arrangements. SHe was still not keen on going to treatment. She did agree to continueIM thiamine for a few more days. She was also interested in starting naltrexone especially if it reduces alcohol cravings or binging and that it can be given as an IM injection. She denied any SI, HI, , AH or VH. Her sleep has been fine. REVIEW OF SYSTEMS Constitutional: Positive for migraine-chronic issue but has constant headache since admission. Has bradycardia, low BP Psychiatric:, memory issues. Denies SI, HI, AH or VH Medication Side effects: None reported CHART REVIEW & MULTIDISCIPLINARY TEAM MEETING Met with the multidisciplinary treatment team and discussed care and treatment planning. OBJECTIVE Hours of Sleep: Patient Vitals for the past 72 hrs: Hours 09/11/21 0700 5.8 HOURS 09/10/21 2200 0 HOURS 09/10/21 1400 2 HOURS 09/10/21 0627 7 HOURS 09/09/21 2200 1.3 HOURS 09/09/21 1500 2.8 HOURS 09/09/21 0701 6.5 HOURS 09/08/21 2300 1.5 HOURS LABS: No results found for this or any previous visit (from the past 24 hour(s)). Current Facility-Administered Medications Medication Dose Route Frequency ??? acetaminophen (TYLENOL) tablet 650 mg 650 mg Oral Q6H PRN ??? amLODIPine (NORVASC) tablet 2.5 mg 2.5 mg Oral Daily ??? sennosides-docusate sodium (SENOKOT S) 8.6-50 MG per tablet 2 Tablet 2 Tablet Oral BID PRN And ??? polyethylene glycol (MIRALAX) oral powder 17 g 17 g Oral DAILY PRN And ??? bisacodyl (DULCOLAX) rectal suppository 10 mg 10 mg Rectal DAILY PRN ??? calcium carbonate (TUMS) chewable tablet 1,000 mg 1,000 mg Oral Q4H PRN ??? donepezil (ARICEPT) tablet 10 mg 10 mg Oral At Bedtime ??? DULoxetine (CYMBALTA) delayed release capsule 90 mg 90 mg Oral Daily ??? gabapentin (NEURONTIN) capsule 1,200 mg 1,200 mg Oral BID ??? hydrOXYzine pamoate (VISTARIL) capsule 50 mg 50 mg Oral Q6H PRN ??? melatonin tablet 3 mg 3 mg Oral At Bedtime ??? melatonin tablet 6 mg 6 mg Oral At bedtime PRN ??? [Held by provider in Manage Orders] metoprolol succinate (TOPROL XL) extended release tablet 50 mg 50 mg Oral Daily ??? multivitamin with minerals tablet 1 Tablet 1 Tablet Oral Daily ??? nicotine (NICODERM CQ) 21 MG/24HR 1 Patch 1 Patch Transdermal Daily ??? OLANZapine (ZyPREXA) tablet 5 mg 5 mg Oral BID PRN ??? ondansetron (ZOFRAN-ODT) disintegrating tablet 4 mg 4 mg Oral Q8H PRN ??? SUMAtriptan (IMITREX) tablet 50 mg 50 mg Oral ONCE PRN ??? thiamine (VITAMIN B-1) injection 200 mg 200 mg Intramuscular TID ??? [Held by provider in Manage Orders] thiamine (VITAMIN B-1) tablet 100 mg 100 mg Oral Daily ALLERGY No Known Allergies MENTAL STATUS EXAM BP 116/85 Pulse 62 Temp 97.4 ??F (36.3 ??C) Resp 16 Ht 5' 2 (1.575 m) Wt 102.2 kg (225 lb3.2 oz) SpO2 94% BMI 41.19 kg/m?? Appearance: alert, casually groomed Behavior: cooperative, engaged Motor: no abnormalities Gait and Station: seated Muscle strength and tone: No apparent abnormalities. Speech: normal in rate and loudness, rhythm, prosody and intonation Language: intact Thought process: linear Thought content: No SI, HI, Without any hallucinations or paranoia Associations: intact Mood: fine Affect: anxious Orientation: intact Attention and Concentration: adequate Memory: immediate recall normal, delayed recall slightly impaired, remote memory impaired Fund of Knowledge: average Insight: poor Judgement: poor MoCA: 17/30 on admission : 25/30 on 09/11/2021. (She lost 3 points on delayed recall. And lost one point on orientation to city ([place]). She made one minor mistake on sentence repetition and did not begin the trails test at A. If these two are ignored then she would score a 27.) SEBASTIÁN Peres is a 46 y.o. old female with history of severe alcohol use disorder, TBI with cognitive impairment from 2012, depression and anxiety who was initially admitted to medical unit for worsening memory loss and suicidal ideation from sober housing. She had a recent admission to [facility] 08/26 - where she had a witnessed seizure lasting 5 minutes suspected 2/2 alcohol withdrawal. Patient is a very unreliable historian on admission. She admits to being hopeless with passive suicidal ideation but no intent or plan in the context of her worsening memory impairment and decline in function. Wernicke's encephalopathy may be contributing to her amnesia given evidence of relapse to alcohol since the fall in the context of a vulnerable brain and possible poor nutrition. Patient received IV thiamine without much improvement. She was also seen by neurology and had EEG with without any seizure activity. Due to ongoing anxiety and passive SI, patient was transferred to inpatient psychiatry as a voluntary patient. Upon admission to psychiatry, patient remains anxious and is a poor historian. Will complete a MOCA and monitor patient for a few days. Concern that alcohol use is a contributing factor in her presentation given her recent alcohol withdrawal seizure.The treatment team has initiated appropriate safety precautions. The patient is being admitted for evaluation, stabilization and treatment for the working diagnosis of cognitive impairment vs encephalopathy vs substance-induced depression. 09/05/2021: MOCA score of 17/30, will reassess again next week once psychiatrically more stable. Anxiety slightly improved today but still a little irritable. Patient wants to return home after discharge. Will need to determine if she is safe to live independently first. 09/06/2021: Ongoing complaint of constant anxiety. Also complaining of migraine. Titrating gabapentinto address anxiety. 09/07/2021: More anxious and distressed today. Memory still very impaired. Head CT from 06/14/21 did show increased atrophy compared to [address] Suspect that this finding and recent alcohol abuse contributing to her recent memory issues. Recommend repeating MOCA later this week. May need to consider CPT to determine level of care she needs on discharge. Also need neuropsych testing after discharge. 2/: Still ahving memeory issues. Due to concern for WKS will start high-dose IM thiamine for a few days. Will reasses MOCA once this is done. 2/2: Key still has memeory issues, some confusion and anxiety. Due to issues with migraine will increase duloxetine and cosolidate gabapentin. Discussed naltrexone that she is not keen on. 23: Key is still very resistant to any form of intervention for AUD. At this time, if she were to go home we need to ensure that she has appropriate support and resources. She does have chronic issues with TBI and AUD but these issues can be addressed even if she were to go home with the appropriate wraparound services. She is taking her meds and has been cooperative in spite of her desire to leave. There is little for us to commit her - an extreme option - since she does not have e/o SI, HI, AHor VH. Her family may choose to become her guardian and make decisions for her, but this is not something that can be solved urgently and can be done outpatient. 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 09/11: Key seems to be doing much better with an improvement in anxiety likely due to gabapentin and duloxetine. Both meds may also help with migraine. We do have to watch for serotonin symdrome with imitrex, trazodone and duloxetine. Her MoCA has improved dramatically which may be due to thiamine repletion. Hence we have continued the IM thiamine till DC. She is also agreeable to starting naltrexone and we will ramp it up and transition to IM injection outpatient. DIAGNOSES & PLAN Principal Psychiatric Diagnoses: # 1: R/o Wernicke's Encephalopathy # 2: Depression, unspecified, organic vs substance induced vs MDD # 3: Anxiety Disorder, unspecified # 4: Major Neurocognitive Disorder secondary to TBI ?? Substance Use Disorders: Alcohol Use Disorder, severe ?? Medical Concerns to be addressed: Continue oral thiamine. Hypokalemia resolved. ?? Hospital Medicine Discharge Note on 09/03/21: Hospital Course Test results:??Labs remarkable for hypokalemia, potassium prior to discharge was 3.1. ??UDS was negative. LFTs within normal limit throughout admission. Folate WNL and B12 mildly elevated. ??No anemia. Procedures:??EEG completed without??evidence of electrographic seizures or epileptiform discharges Complications:??none ?? Brief hospital course by problem: ?? Memory impairment Recent seizure Subjective worsening of TBI-related memory impairment. Recent hospitalization significant for witnessed seizure with abnormal EEG; was not started on anti- epileptic medication. Presentation was notablefor alcohol level of 0.04, possible that seizure was related to alcohol withdrawal. B12??mildly eleva anthony??and Folate WNL. Neurology consulted and EEG completed without evidence of seizure -??thiamine??level??in process -??Treated with IV thiamine and transitioned to oral thiamine 100 mg daily??at discharge ?? Passive??Suicidal Ideation Presenting complaint of suicidal ideation.??[facility] would [facility]. Does not have access to medication in the hospital, denies active plan on my interview, denies history of suicide attempts.??Evaluated by psychiatry and she is amenable to voluntary admission. - SENIOR RESEARCH FELLOW olanzapine discontinued due to possible contributions to AMS ?? Hypokalemia Noted to be hypokalemic on admission which was repleted with PO and IV potassium. ??Level improved. ??Started on supplemental K 40 meq BID. ??Continue repletion on discharge. - Will need repeat potassium check with PCP after discharge (or while admitted to psych if prolongedadmission), would aim to check by 09/08 at the latest. ?? Addiction Medicine Consult on 09/02/21: Assessment, Recommendations/Plan: Key Peres??is a 46 y.o.??old female??with a past medical history significant for alcohol use disorder, PTSD, anxiety, memory impairment, TBI??who presented to [facility] for??SI. ?? Alcohol use disorder, seemingly severe Denies recent use but unable to account for recent BAL at 0.04 last week. In sober living. Memory impairment limits evaluation and history. Given memory impairment, CD tx not currently indicated. May consider additional medication support but will defer at this time. PLTs and MCV WNLs. - added on LFTs - Could consider EtG vs. EtS screening to r/o recent alcohol consumption but these have limitations. ?? Neurology Consult on 09/01/21: IMPRESSION:?? 46 yo female with history TBI and recent admission at [facility] with new onset seizure, who presents with continuing confusion and poor memory. Currently she is alert and oriented. Exam is otherwise nonfocal. MRI brain was just done at OSH and does not need repeated here. There were no significant abnormalities on the MRI. EEG was also completed at OSH and showed rhythmic right temporal activity. ?? Her ongoing cognitive changes be due to the recent seizure, history of alcohol abuse, prior TBI, andpossibly underlying psychiatric illness. I doubt [employer] infection or subclinical seizures. Given recentextensive work up, I will not order any additional testing at this time. ?? I will repeat the EEG today. If this is abnormal, then I would recommend starting Keppra 500 mg bid.If it is normal, then I would not start a medication. It will be most helpful for her to undergo formal neuropsych evaluation as an outpatient.? RECOMMENDATIONS:?? - EEG to rule out continued seizure activity - Agree with B1, B12, folate studies - Start Keppra 500 bid IF EEG abnormal - outpatient neuropsych testing - Neurology will sign off.? Chas Ureña MD?09/01/2021, 1:20 PM Department of Neurology [facility]? Medication Ordered/Consults/Labs/Tests Ordered: 09/04/2021: Continue on SENIOR RESEARCH FELLOW Donepezil 10mg qhs, Cymbalta 60mg daily, Melatonin 3mg qhs. Zyprexa was stopped due to possible anticholinergic properties worsening AMS. Increased Gabapentin to 400mg QID for alcohol withdrawal syndrome. Will stop Vistaril when pt is less anxious. 09/05/2021: No change today. 09/06/2021: Increase Gabapentin to 600mg QID for possible alcohol withdrawal syndrome. 09/07/2021: Added back PRN Zyprexa as memory has not changed since discontinuing. 09/08: high dose thiamine 200 mg IM tid 09/09: Increase duloxetine to 90 mg; Consolidate gabapentin to 1200 mg bid 09/11: Continue thiamine IM; Start naltrexone 12.5 mg daily. Trazodone 25 mg prn. Watch for Serotonin syndrome ?? Milieu Management: Admit to: NE8 Legal: Voluntary but would be holdable if requesting to discharge home Acuity level :Red (caution - at risk, monitored for safety) Encourage the patient to participate in unit activities. RE-CERTIFICATION & RISK ASSESSMENT The patient continues to need, on a daily basis, active inpatient psychiatric treatment for ongoing diagnostic assessment and treatment of the following symptoms: anxiety and worsening memory. The treatment can reasonably be expected to improve the patient's condition. Estimated length of stay is 7-10days. Anticipated disposition: Unknown pending further stabilization ?? Risk Assessment: self harm: Acutely increased risk due to passive SI and impulsivity due to TBI. assault: Low currently Biopsychosocial Stressors: Difficulty with memory, has not been able to work. Patient Strengths: family/social support, willing to take medications, agreeable to hospitalization,stable housing, has insurance Total Time: 65 minutes Time on Primary E/M: 35 minutes Time on Prolonged Care Services: 30 minutes Start Time 3:30 PM End Time 4 PM for Prolonged Care Only Prolonged services provided were face to face with the patient consisted of: psychoeducation, supportive therapy, CA, sobriety concerns. Brandon Murphy MD 09/11/2021, 2:34 PM [employer] Lisa, Shilpi Ramsay PA-C - 09/10/2021 7:10 PM CST [facility] Medicine Progress Note Patient Name: Key Peres Attending: Brandon Murphy MD Date of Service: 09/10/2021 Subjective: Patient seen in room, resting in bed. Had another headache last night that resolved with excedrin. Otherwise feeling okay, though anxious about knowing her medications on discharge. Objective: Most Recent Vital Signs: Min and Max Vital Signs (24 hours): Temp: 98.5 ??F (36.9 ??C) BP: (!) 152/85 Pulse: (!) 57 Resp: 16 SpO2: 100 % Temp Min: 98.1 ??F (36.7 ??C) Max: 98.5 ??F (36.9 ??C) BP Min: 112/49 Max: 152/85 Pulse Min: 56 Max: 61 Resp Min: 16 Max: 16 SpO2 Min: 95 % Max: 100 % Gen: Well-appearing, resting comfortably in bed. HEENT: normocephalic, atraumatic, extraocular movements intact, sclerae anicteric, moist mucus membranes Neck: Supple, no JVD Resp: Even, non-labored. Ext: Warm and well-perfused, no cyanosis, clubbing, or edema Skin: Warm and dry, no rash or lesions, no jaundice Neuro: AOx3, comprehensive exam deferred but no focal deficits noted Psych: normal affect Labs: Reviewed and notable for the following: No pertinent findings EKG/Imaging/Procedure/Other: EKG 09/02/[address] & T wave abnormality, consider anterior ischemia Prolonged QT Abnormal ECG Assessment and Plan: 46 y.o. old female with a PMHx significant for alcohol dependence, dementia, traumatic vertebral fractures, TBI, depression, anxiety, PTSD w/a history of migraine headaches who is admitted to psychiatry following alcohol withdrawal and seizures due to memory impairment and suicidal ideations. She is being followed by hospital medicine for management of her headaches and other medical concerns. Acute migraine headache -Improvement with Imitrex and hx of migraine headaches suggests that this is the cause. No indication for further evaluation at this time. -Continue dose of Imitrex to 50mg tonight if needed, would try excedrin first HTN Has more elevated pressures. Patient notes she has been more anxious. -hold metoprolol due to bradycardia -restart amlodipine 2.5mg with hold parameters -Hold SENIOR RESEARCH FELLOW chlorthalidone and amlodipine; can restart if pressures are elevated. Chronic Issues: Alcohol substance use disorder -Continue supportive vitamins Traumatic Brain Injury -SENIOR RESEARCH FELLOW Aricept Chronic Pain -SENIOR RESEARCH FELLOW gabapentin, cymbalta Depression and Anxiety w/suicidal ideations -Management per primary team (psychiatry) Medicine team will continue to follow, please page/call with questions. FEN - Regular Diet Ppx - Encourage ambulation CODE - Full Shilpi Gonzalez PA-C [facility] Medicine Pager on [facility] [employer] Brandon Murphy MD - 09/10/2021 8:51 AM CST [facility] Psychiatry Progress Note PATIENT NAME: Key Peres DATE OF SERVICE: 09/10/2021 ATTENDING PRACTITIONER: Brandon Murphy MD HOSPITAL DAY #8 CHIEF COMPLAINT I don't know what to do INTERVAL HISTORY Key was still focused on DC and wanted to know when she can leave. She was upset with being here and asked if her parents had asked me to make her stay here. I denied this and told her that I was concerned about her health and well- being. I let her know that we wanted to get enough services for her, ensure she has support at home, and that she is safe. I discussed my concerns with alcohol use but she still denied them and did not want to go into treatment. I revisited the role of naltrexone and she refused again. She mentioned having good fmaily support and that she could be helped by them whenever she wanted. She was feeling more anxious but felt that hyxroxyzine had been helpful. She still has memory issues and could not remember why she denied taking her thimaine IM. Upon gentle request sheagreed to take it today but in the gluteus. She denied any SI, HI, , AH or VH. Her sleep has been fine. REVIEW OF SYSTEMS Constitutional: Positive for migraine-chronic issue but has constant headache since admission. Has bradycardia, low BP Psychiatric: Increased anxiety, memory issues. Denies SI. Medication Side effects: None reported CHART REVIEW & MULTIDISCIPLINARY TEAM MEETING Met with the multidisciplinary treatment team and discussed care and treatment planning. OBJECTIVE Hours of Sleep: Patient Vitals for the past 72 hrs: Hours 09/11/21 0700 5.8 HOURS 09/10/21 2200 0 HOURS 09/10/21 1400 2 HOURS 09/10/21 0627 7 HOURS 09/09/21 2200 1.3 HOURS 09/09/21 1500 2.8 HOURS 09/09/21 0701 6.5 HOURS 09/08/21 2300 1.5 HOURS 09/08/21 1400 0 HOURS LABS: No results found for this or any previous visit (from the past 24 hour(s)). Current Facility-Administered Medications Medication Dose Route Frequency ??? acetaminophen (TYLENOL) tablet 650 mg 650 mg Oral Q6H PRN ??? amLODIPine (NORVASC) tablet 2.5 mg 2.5 mg Oral Daily ??? sennosides-docusate sodium (SENOKOT S) 8.6-50 MG per tablet 2 Tablet 2 Tablet Oral BID PRN And ??? polyethylene glycol (MIRALAX) oral powder 17 g 17 g Oral DAILY PRN And ??? bisacodyl (DULCOLAX) rectal suppository 10 mg 10 mg Rectal DAILY PRN ??? calcium carbonate (TUMS) chewable tablet 1,000 mg 1,000 mg Oral Q4H PRN ??? donepezil (ARICEPT) tablet 10 mg 10 mg Oral At Bedtime ??? DULoxetine (CYMBALTA) delayed release capsule 90 mg 90 mg Oral Daily ??? gabapentin (NEURONTIN) capsule 1,200 mg 1,200 mg Oral BID ??? hydrOXYzine pamoate (VISTARIL) capsule 50 mg 50 mg Oral Q6H PRN ??? melatonin tablet 3 mg 3 mg Oral At Bedtime ??? melatonin tablet 6 mg 6 mg Oral At bedtime PRN ??? [Held by provider in Manage Orders] metoprolol succinate (TOPROL XL) extended release tablet 50 mg 50 mg Oral Daily ??? multivitamin with minerals tablet 1 Tablet 1 Tablet Oral Daily ??? nicotine (NICODERM CQ) 21 MG/24HR 1 Patch 1 Patch Transdermal Daily ??? OLANZapine (ZyPREXA) tablet 5 mg 5 mg Oral BID PRN ??? ondansetron (ZOFRAN-ODT) disintegrating tablet 4 mg 4 mg Oral Q8H PRN ??? SUMAtriptan (IMITREX) tablet 50 mg 50 mg Oral ONCE PRN ??? thiamine (VITAMIN B-1) injection 200 mg 200 mg Intramuscular TID ??? [Held by provider in Manage Orders] thiamine (VITAMIN B-1) tablet 100 mg 100 mg Oral Daily ALLERGY No Known Allergies MENTAL STATUS EXAM BP 116/85 Pulse 62 Temp 97.4 ??F (36.3 ??C) Resp 16 Ht 5' 2 (1.575 m) Wt 102.2 kg (225 lb3.2 oz) SpO2 94% BMI 41.19 kg/m?? Appearance: alert, casually groomed Behavior: cooperative, engaged Motor: no abnormalities Gait and Station: seated Muscle strength and tone: No apparent abnormalities. Speech: normal in rate and loudness, rhythm, prosody and intonation Language: intact Thought process: linear Thought content: No SI, HI, Without any hallucinations or paranoia Associations: intact Mood: okay, I guess Affect: very anxious, slightly distressed Orientation: Oriented to person, [facility], month, day, year. Not oriented to date or president. Attention and Concentration: adequate Memory: impaired--short term and residential impairment noted. Fund of Knowledge: likely diminished due to TBI Insight: poor Judgement: poor IMPRESSION Key Prees is a 46 y.o. old female with history of severe alcohol use disorder, TBI with cognitive impairment from 2012, depression and anxiety who was initially admitted to medical unit for worsening memory loss and suicidal ideation from sober housing. She had a recent admission to [facility] 08/26 - where she had a witnessed seizure lasting 5 minutes suspected 2/2 alcohol withdrawal. Patient is a very unreliable historian on admission. She admits to being hopeless with passive suicidal ideation but no intent or plan in the context of her worsening memory impairment and decline in function. Wernicke's encephalopathy may be contributing to her amnesia given evidence of relapse to alcohol since the fall in the context of a vulnerable brain and possible poor nutrition. Patient received IV thiamine without much improvement. She was also seen by neurology and had EEG with without any seizure activity. Due to ongoing anxiety and passive SI, patient was transferred to inpatient psychiatry as a voluntary patient. Upon admission to psychiatry, patient remains anxious and is a poor historian. Will complete a MOCA and monitor patient for a few days. Concern that alcohol use is a contributing factor in her presentation given her recent alcohol withdrawal seizure.The treatment team has initiated appropriate safety precautions. The patient is being admitted for evaluation, stabilization and treatment for the working diagnosis of cognitive impairment vs encephalopathy vs substance-induced depression. 09/05/2021: MOCA score of 17/30, will reassess again next week once psychiatrically more stable. Anxiety slightly improved today but still a little irritable. Patient wants to return home after discharge. Will need to determine if she is safe to live independently first. 09/06/2021: Ongoing complaint of constant anxiety. Also complaining of migraine. Titrating gabapentinto address anxiety. 09/07/2021: More anxious and distressed today. Memory still very impaired. Head CT from 06/14/21 did show increased atrophy compared to [address] Suspect that this finding and recent alcohol abuse contributing to her recent memory issues. Recommend repeating MOCA later this week. May need to consider CPT to determine level of care she needs on discharge. Also need neuropsych testing after discharge. 2/: Still ahving memeory issues. Due to concern for WKS will start high-dose IM thiamine for a few days. Will reasses MOCA once this is done. 2/2: Key still has memeory issues, some confusion and anxiety. Due to issues with migraine will increase duloxetine and cosolidate gabapentin. Discussed naltrexone that she is not keen on. 2/3: Key is still very resistant to any form of intervention for AUD. At this time, if she were to go home we need to ensure that she has appropriate support and resources. She does have chronic issues with TBI and AUD but these issues can be addressed even if she were to go home with the appropriate wraparound services. She is taking her meds and has been cooperative in spite of her desire to leave. There is little for us to commit her - an extreme option - since she does not have e/o SI, HI, AHor VH. Her family may choose to become her guardian and make decisions for her, but this is not something that can be solved urgently and can be done outpatient. 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 DIAGNOSES & PLAN Principal Psychiatric Diagnoses: # 1: R/o Wernicke's Encephalopathy # 2: Depression, unspecified, organic vs substance induced vs MDD # 3: Anxiety Disorder, unspecified # 4: Major Neurocognitive Disorder secondary to TBI ?? Substance Use Disorders: Alcohol Use Disorder, severe ?? Medical Concerns to be addressed: Continue oral thiamine. Hypokalemia resolved. ?? Hospital Medicine Discharge Note on 09/03/21: Hospital Course Test results:??Labs remarkable for hypokalemia, potassium prior to discharge was 3.1. ??UDS was negative. LFTs within normal limit throughout admission. Folate WNL and B12 mildly elevated. ??No anemia. Procedures:??EEG completed without??evidence of electrographic seizures or epileptiform discharges Complications:??none ?? Brief hospital course by problem: ?? Memory impairment Recent seizure Subjective worsening of TBI-related memory impairment. Recent hospitalization significant for witnessed seizure with abnormal EEG; was not started on anti- epileptic medication. Presentation was notablefor alcohol level of 0.04, possible that seizure was related to alcohol withdrawal. B12??mildly eleva anthony??and Folate WNL. Neurology consulted and EEG completed without evidence of seizure -??thiamine??level??in process -??Treated with IV thiamine and transitioned to oral thiamine 100 mg daily??at discharge ?? Passive??Suicidal Ideation Presenting complaint of suicidal ideation.??Low acute risk - per collateral at [facility] patient stated she would take all of her pills. Does not have access to medication in the hospital, denies active plan on my interview, denies history of suicide attempts.??Evaluated by psychiatry and she is amenable to voluntary admission. - SENIOR RESEARCH FELLOW olanzapine discontinued due to possible contributions to AMS ?? Hypokalemia Noted to be hypokalemic on admission which was repleted with PO and IV potassium. ??Level improved. ??Started on supplemental K 40 meq BID. ??Continue repletion on discharge. - Will need repeat potassium check with PCP after discharge (or while admitted to psych if prolongedadmission), would aim to check by 2/1 at the latest. ?? Addiction Medicine Consult on 09/02/21: Assessment, Recommendations/Plan: Key Peres??is a 46 y.o.??old female??with a past medical history significant for alcohol use disorder, PTSD, anxiety, memory impairment, TBI??who presented to [facility] for??SI. ?? Alcohol use disorder, seemingly severe Denies recent use but unable to account for recent BAL at 0.04 last week. In sober living. Memory impairment limits evaluation and history. Given memory impairment, CD tx not currently indicated. May consider additional medication support but will defer at this time. PLTs and MCV WNLs. - added on LFTs - Could consider EtG vs. EtS screening to r/o recent alcohol consumption but these have limitations. ?? Neurology Consult on 09/01/21: IMPRESSION:?? 46 yo female with history TBI and recent admission at [facility] with new onset seizure, who presents with continuing confusion and poor memory. Currently she is alert and oriented. Exam is otherwise nonfocal. MRI brain was just done at OSH and does not need repeated here. There were no significant abnormalities on the MRI. EEG was also completed at OSH and showed rhythmic right temporal activity. ?? Her ongoing cognitive changes be due to the recent seizure, history of alcohol abuse, prior TBI, andpossibly underlying psychiatric illness. I doubt CASH[employer] S[employer] GASOLINE infection or subclinical seizures. Given recentextensive work up, I will not order any additional testing at this time. ?? I will repeat the EEG today. If this is abnormal, then I would recommend starting Keppra 500 mg bid.If it is normal, then I would not start a medication. It will be most helpful for her to undergo formal neuropsych evaluation as an outpatient.? RECOMMENDATIONS:?? - EEG to rule out continued seizure activity - Agree with B1, B12, folate studies - Start Keppra 500 bid IF EEG abnormal - outpatient neuropsych testing - Neurology will sign off.? Chas Ureña MD?09/01/2021, 1:20 PM Department of Neurology [facility]? Medication Ordered/Consults/Labs/Tests Ordered: 09/04/2021: Continue on SENIOR RESEARCH FELLOW Donepezil 10mg qhs, Cymbalta 60mg daily, Melatonin 3mg qhs. Zyprexa was stopped due to possible anticholinergic properties worsening AMS. Increased Gabapentin to 400mg QID for alcohol withdrawal syndrome. Will stop Vistaril when pt is less anxious. 09/05/2021: No change today. 09/06/2021: Increase Gabapentin to 600mg QID for possible alcohol withdrawal syndrome. 09/07/2021: Added back PRN Zyprexa as memory has not changed since discontinuing. 09/08: high dose thiamine 200 mg IM tid 09/09: Increase duloxetine to 90 mg; Consolidate gabapentin to 1200 mg bid ?? Milieu Management: Admit to: NE8 Legal: Voluntary but would be holdable if requesting to discharge home Acuity level :Red (caution - at risk, monitored for safety) Encourage the patient to participate in unit activities. RE-CERTIFICATION & RISK ASSESSMENT The patient continues to need, on a daily basis, active inpatient psychiatric treatment for ongoing diagnostic assessment and treatment of the following symptoms: anxiety and worsening memory. The treatment can reasonably be expected to improve the patient's condition. Estimated length of stay is 7-10days. Anticipated disposition: Unknown pending further stabilization ?? Risk Assessment: self harm: Acutely increased risk due to passive SI and impulsivity due to TBI. assault: Low currently Biopsychosocial Stressors: Difficulty with memory, has not been able to work. Patient Strengths: family/social support, willing to take medications, agreeable to hospitalization,stable housing, has insurance Brandon Murphy MD 09/10/2021, 8:51 AM [employer] Shilpi Gonzalez PA-C - 09/09/2021 9:58 PM CST [facility] Medicine Progress Note Patient Name: Key Peres Attending: Brandon Murphy MD Date of Service: 09/09/2021 Subjective: Patient seen in room, resting in bed. More anxious today per her report. Headache has resolved, had some chills this morning but no other new symptoms. Objective: Most Recent Vital Signs: Min and Max Vital Signs (24 hours): Temp: 97.6 ??F (36.4 ??C) BP: 128/80 Pulse: 68 Resp: 16 SpO2: 97 % Temp Min: 97.6 ??F (36.4 ??C) Max: 97.9 ??F (36.6 ??C) BP Min: 92/57 Max: 128/80 Pulse Min: 43 Max: 68 Resp Min: 16 Max: 20 SpO2 Min: 95 % Max: 98 % Gen: Well-appearing, resting comfortably in bed. HEENT: normocephalic, atraumatic, extraocular movements intact, sclerae anicteric, moist mucus membranes Neck: Supple, no JVD Resp: Even, non-labored. Ext: Warm and well-perfused, no cyanosis, clubbing, or edema Skin: Warm and dry, no rash or lesions, no jaundice Neuro: AOx3, comprehensive exam deferred but no focal deficits noted Psych: normal affect Labs: Reviewed and notable for the following: No pertinent findings EKG/Imaging/Procedure/Other: EKG 09/02/[address] & T wave abnormality, consider anterior ischemia Prolonged QT Abnormal ECG Assessment and Plan: 46 y.o. old female with a PMHx significant for alcohol dependence, dementia, traumatic vertebral fractures, TBI, depression, anxiety, PTSD w/a history of migraine headaches who is admitted to psychiatry following alcohol withdrawal and seizures due to memory impairment and suicidal ideations. She is being followed by hospital medicine for management of her headaches and other medical concerns. Acute migraine headache -Improvement with Imitrex and hx of migraine headaches suggests that this is the cause. No indication for further evaluation at this time. -Increased Imitrex to 100mg last night, used x1 with resolution of headache. Patient does have QT prolongation noted on 09/02/2021; recheck EKG today with improvement in QTc. HTN -Metoprolol was started 09/07/2021; blood pressure and HR are stable. Continue. -Hold SENIOR RESEARCH FELLOW chlorthalidone and amlodipine; can restart if pressures are elevated. Chronic Issues: Alcohol substance use disorder -Continue supportive vitamins Traumatic Brain Injury -SENIOR RESEARCH FELLOW Aricept Chronic Pain -SENIOR RESEARCH FELLOW gabapentin, cymbalta Depression and Anxiety w/suicidal ideations -Management per primary team (psychiatry) Medicine team will continue to follow, please page/call with questions. FEN - Regular Diet Ppx - Encourage ambulation CODE - Full Shilpi Gonzalez PA-C Department of Hospital Medicine Pager on [employer] Brandon Murphy MD - 09/09/2021 8:34 AM CST [facility] Psychiatry Progress Note PATIENT NAME: Key Peres DATE OF SERVICE: 09/09/2021 ATTENDING PRACTITIONER: Brandon Murphy MD HOSPITAL DAY #7 CHIEF COMPLAINT don't remember what happened INTERVAL HISTORY Key was fixated on discharge. She still denies any issues with alcohol use and continued to refuse any help fur AUD. I had to go through all the concerning signs and symptoms and she still was not convinced. She did not want to take any more meds even though I tried to help her understand the worrisome signs and symptoms she had. She still has memory issues. She denied any SI, HI, , AH or VH. Her sleep has been fine. REVIEW OF SYSTEMS Constitutional: Positive for migraine-chronic issue but has constant headache since admission. Has bradycardia, low BP Psychiatric: Increased anxiety, memory issues. Denies SI. Medication Side effects: None reported CHART REVIEW & MULTIDISCIPLINARY TEAM MEETING Met with the multidisciplinary treatment team and discussed care and treatment planning. OBJECTIVE Hours of Sleep: Patient Vitals for the past 72 hrs: Hours 09/10/21 0627 7 HOURS 09/09/21 2200 1.3 HOURS 09/09/21 1500 2.8 HOURS 09/09/21 0701 6.5 HOURS 09/08/21 2300 1.5 HOURS 09/08/21 1400 0 HOURS 09/08/21 0641 6.8 HOURS 09/07/21 2241 1.8 HOURS 09/07/21 1400 2.3 HOURS LABS: Hospital Encounter on 09/03/21 (from the past 24 hour(s)) ECG 12-Lead Routine (Lab perform) Result Value Ref Range EKG Completed Current Facility-Administered Medications Medication Dose Route Frequency ??? acetaminophen (TYLENOL) tablet 650 mg 650 mg Oral Q6H PRN ??? sennosides-docusate sodium (SENOKOT S) 8.6-50 MG per tablet 2 Tablet 2 Tablet Oral BID PRN And ??? polyethylene glycol (MIRALAX) oral powder 17 g 17 g Oral DAILY PRN And ??? bisacodyl (DULCOLAX) rectal suppository 10 mg 10 mg Rectal DAILY PRN ??? calcium carbonate (TUMS) chewable tablet 1,000 mg 1,000 mg Oral Q4H PRN ??? donepezil (ARICEPT) tablet 10 mg 10 mg Oral At Bedtime ??? DULoxetine (CYMBALTA) delayed release capsule 90 mg 90 mg Oral Daily ??? gabapentin (NEURONTIN) capsule 1,200 mg 1,200 mg Oral BID ??? hydrOXYzine pamoate (VISTARIL) capsule 50 mg 50 mg Oral Q6H PRN ??? melatonin tablet 3 mg 3 mg Oral At Bedtime ??? melatonin tablet 6 mg 6 mg Oral At bedtime PRN ??? metoprolol succinate (TOPROL XL) extended release tablet 50 mg 50 mg Oral Daily ??? multivitamin with minerals tablet 1 Tablet 1 Tablet Oral Daily ??? nicotine (NICODERM CQ) 21 MG/24HR 1 Patch 1 Patch Transdermal Daily ??? OLANZapine (ZyPREXA) tablet 5 mg 5 mg Oral BID PRN ??? ondansetron (ZOFRAN-ODT) disintegrating tablet 4 mg 4 mg Oral Q8H PRN ??? thiamine (VITAMIN B-1) injection 200 mg 200 mg Intramuscular TID ??? [Held by provider in Manage Orders] thiamine (VITAMIN B-1) tablet 100 mg 100 mg Oral Daily ALLERGY No Known Allergies MENTAL STATUS EXAM BP 128/80 Pulse 68 Temp 97.6 ??F (36.4 ??C) (Skin) Resp 16 Ht 5' 2 (1.575 m) Wt 102.2 kg (225 lb 3.2 oz) SpO2 97% BMI 41.19 kg/m?? Appearance: alert, disheveled Behavior: cooperative, engaged, poor historian Motor: calm Gait and Station: seated Muscle strength and tone: No apparent abnormalities. Speech: normal in rate and loudness Language: intact Thought process: linear Thought content: No longer having thoughts that she wants to . Without any hallucinations or paranoia Associations: intact Mood: constant increased anxiety Affect: very anxious, slightly distressed Orientation: Oriented to person, [facility], month, day, year. Not oriented to date or president. 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 Can't remember where she was living forthe last 2 months despite being told multiple times. Fund of Knowledge: likely diminished due to TBI Insight: poor Judgement: poor IMPRESSION Key Peres is a 46 y.o. old female with history of severe alcohol use disorder, TBI with cognitive impairment from 2013, depression and anxiety who was initially admitted to medical unit for worsening memory loss and suicidal ideation from sober housing. She had a recent admission to [facility] 08/26 - where she had a witnessed seizure lasting 5 minutes suspected 2/2 alcohol withdrawal. Patient is a very unreliable historian on admission. She admits to being hopeless with passive suicidal ideation but no intent or plan in the context of her worsening memory impairment and decline in function. Wernicke's encephalopathy may be contributing to her amnesia given evidence of relapse to alcohol since the fall in the context of a vulnerable brain and possible poor nutrition. Patient received IV thiamine without much improvement. She was also seen by neurology and had EEG with without any seizure activity. Due to ongoing anxiety and passive SI, patient was transferred to inpatient psychiatry as a voluntary patient. Upon admission to psychiatry, patient remains anxious and is a poor historian. Will complete a MOCA and monitor patient for a few days. Concern that alcohol use is a contributing factor in her presentation given her recent alcohol withdrawal seizure.The treatment team has initiated appropriate safety precautions. The patient is being admitted for evaluation, stabilization and treatment for the working diagnosis of cognitive impairment vs encephalopathy vs substance-induced depression. 09/05/2021: MOCA score of 17/30, will reassess again next week once psychiatrically more stable. Anxiety slightly improved today but still a little irritable. Patient wants to return home after discharge. Will need to determine if she is safe to live independently first. 09/06/2021: Ongoing complaint of constant anxiety. Also complaining of migraine. Titrating gabapentinto address anxiety. 09/07/2021: More anxious and distressed today. Memory still very impaired. Head CT from 06/14/21 did show increased atrophy compared to [address] Suspect that this finding and recent alcohol abuse contributing to her recent memory issues. Recommend repeating MOCA later this week. May need to consider CPT to determine level of care she needs on discharge. Also need neuropsych testing after discharge. 09/08: Still ahving memeory issues. Due to concern for WKS will start high-dose IM thiamine for a few days. Will reasses MOCA once this is done. 09/09: Key still has memeory issues, some confusion and anxiety. Due to issues with migraine will increase duloxetine and cosolidate gabapentin. Discussed naltrexone that she is not keen on. DIAGNOSES & PLAN Principal Psychiatric Diagnoses: # 1: R/o Wernicke's Encephalopathy # 2: Depression, unspecified, organic vs substance induced vs MDD # 3: Anxiety Disorder, unspecified # 4: Major Neurocognitive Disorder secondary to TBI ?? Substance Use Disorders: Alcohol Use Disorder, severe ?? Medical Concerns to be addressed: Continue oral thiamine. Hypokalemia resolved. ?? Hospital Medicine Discharge Note on 09/03/21: Hospital Course Test results:??Labs remarkable for hypokalemia, potassium prior to discharge was 3.1. ??UDS was negative. LFTs within normal limit throughout admission. Folate WNL and B12 mildly elevated. ??No anemia. Procedures:??EEG completed without??evidence of electrographic seizures or epileptiform discharges Complications:??none ?? Brief hospital course by problem: ?? Memory impairment Recent seizure Subjective worsening of TBI-related memory impairment. Recent hospitalization significant for witnessed seizure with abnormal EEG; was not started on anti- epileptic medication. Presentation was notablefor alcohol level of 0.04, possible that seizure was related to alcohol withdrawal. B12??mildly eleva anthony??and Folate WNL. Neurology consulted and EEG completed without evidence of seizure -??thiamine??level??in process -??Treated with IV thiamine and transitioned to oral thiamine 100 mg daily??at discharge ?? Passive??Suicidal Ideation Presenting complaint of suicidal ideation.??Low acute risk - per collateral at [facility] patient stated she would take all of her pills. Does not have access to medication in the hospital, denies active plan on my interview, denies history of suicide attempts.??Evaluated by psychiatry and she is amenable to voluntary admission. - SENIOR RESEARCH FELLOW olanzapine discontinued due to possible contributions to AMS ?? Hypokalemia Noted to be hypokalemic on admission which was repleted with PO and IV potassium. ??Level improved. ??Started on supplemental K 40 meq BID. ??Continue repletion on discharge. - Will need repeat potassium check with PCP after discharge (or while admitted to psych if prolongedadmission), would aim to check by 09/08 at the latest. ?? Addiction Medicine Consult on 09/02/21: Assessment, Recommendations/Plan: Key Peres??is a 46 y.o.??old female??with a past medical history significant for alcohol use disorder, PTSD, anxiety, memory impairment, TBI??who presented to [facility] for??SI. ?? Alcohol use disorder, seemingly severe Denies recent use but unable to account for recent BAL at 0.04 last week. In sober living. Memory impairment limits evaluation and history. Given memory impairment, CD tx not currently indicated. May consider additional medication support but will defer at this time. PLTs and MCV WNLs. - added on LFTs - Could consider EtG vs. EtS screening to r/o recent alcohol consumption but these have limitations. ?? Neurology Consult on 09/01/21: IMPRESSION:?? 46 yo female with history TBI and recent admission at [facility] with new onset seizure, who presents with continuing confusion and poor memory. Currently she is alert and oriented. Exam is otherwise nonfocal. MRI brain was just done at OSH and does not need repeated here. There were no significant abnormalities on the MRI. EEG was also completed at OSH and showed rhythmic right temporal activity. ?? Her ongoing cognitive changes be due to the recent seizure, history of alcohol abuse, prior TBI, andpossibly underlying psychiatric illness. I doubt C[employer] S[employer] GASOLINE infection or subclinical seizures. Given recentextensive work up, I will not order any additional testing at this time. ?? I will repeat the EEG today. If this is abnormal, then I would recommend starting Keppra 500 mg bid.If it is normal, then I would not start a medication. It will be most helpful for her to undergo formal neuropsych evaluation as an outpatient.? RECOMMENDATIONS:?? - EEG to rule out continued seizure activity - Agree with B1, B12, folate studies - Start Keppra 500 bid IF EEG abnormal - outpatient neuropsych testing - Neurology will sign off.? Chas Ureña MD?09/01/2021, 1:20 PM Department of Neurology [facility]? Medication Ordered/Consults/Labs/Tests Ordered: 09/04/2021: Continue on SENIOR RESEARCH FELLOW Donepezil 10mg qhs, Cymbalta 60mg daily, Melatonin 3mg qhs. Zyprexa was stopped due to possible anticholinergic properties worsening AMS. Increased Gabapentin to 400mg QID for alcohol withdrawal syndrome. Will stop Vistaril when pt is less anxious. 09/05/2021: No change today. 09/06/2021: Increase Gabapentin to 600mg QID for possible alcohol withdrawal syndrome. 09/07/2021: Added back PRN Zyprexa as memory has not changed since discontinuing. 09/08: high dose thiamine 200 mg IM tid 09/09: Increase duloxetine to 90 mg; Consolidate gabapentin to 1200 mg bid ?? Milieu Management: Admit to: NE8 Legal: Voluntary but would be holdable if requesting to discharge home Acuity level :Red (caution - at risk, monitored for safety) Encourage the patient to participate in unit activities. RE-CERTIFICATION & RISK ASSESSMENT The patient continues to need, on a daily basis, active inpatient psychiatric treatment for ongoing diagnostic assessment and treatment of the following symptoms: anxiety and worsening memory. The treatment can reasonably be expected to improve the patient's condition. Estimated length of stay is 7-10days. Anticipated disposition: Unknown pending further stabilization ?? Risk Assessment: self harm: Acutely increased risk due to passive SI and impulsivity due to TBI. assault: Low currently Biopsychosocial Stressors: Difficulty with memory, has not been able to work. Patient Strengths: family/social support, willing to take medications, agreeable to hospitalization,stable housing, has insurance Brandon Murphy MD 09/09/2021, 8:36 AM [employer] Ronald Michael PA-C - 09/08/2021 3:22 PM CST [facility] Medicine Progress Note Patient Name: Key Peres Attending: Prudence Bell PA-C Date of Service: 09/08/2021 Subjective: Key reports that her headache is significant improved but she is still experiencing pain. She is hoping that we can increase her Imitrex if appropriate to help alleviate symptoms completely. Objective: Most Recent Vital Signs: Min and Max Vital Signs (24 hours): Temp: 97.9 ??F (36.6 ??C) BP: 126/72 Pulse: 64 Resp: 16 SpO2: 96 % Temp Min: 97.9 ??F (36.6 ??C) Max: 98.3 ??F (36.8 ??C) BP Min: 126/72 Max: 149/98 Pulse Min: 64 Max: 71 Resp Min: 16 Max: 16 SpO2 Min: 96 % Max: 98 % Gen: Well-appearing, resting comfortably in bed. HEENT: normocephalic, atraumatic, extraocular movements intact, sclerae anicteric, moist mucus membranes Neck: Supple, no JVD Resp: Even, non-labored. Ext: Warm and well-perfused, no cyanosis, clubbing, or edema Skin: Warm and dry, no rash or lesions, no jaundice Neuro: AOx3, comprehensive exam deferred but no focal deficits noted Psych: normal affect Labs: Reviewed and notable for the following: No pertinent findings EKG/Imaging/Procedure/Other: EKG 09/02/[address] & T wave abnormality, consider anterior ischemia Prolonged QT Abnormal ECG Assessment and Plan: 46 y.o. old female with a PMHx significant for alcohol dependence, dementia, traumatic vertebral fractures, TBI, depression, anxiety, PTSD w/a history of migraine headaches who is admitted to psychiatry following alcohol withdrawal and seizures due to memory impairment and suicidal ideations. She is being followed by hospital medicine for management of her headaches and other medical concerns. Acute migraine headache -Improvement with Imitrex and hx of migraine headaches suggests that this is the cause. No indication for further evaluation at this time. -Will increase Imitrex to 100mg. Patient does have QT prolongation noted on 09/02/2021; will recheck an EKG 09/09/2021 if patient receives Imitrex over night. HTN -Metoprolol was started 09/07/2021; blood pressure and HR are stable. Continue. -Hold SENIOR RESEARCH FELLOW chlorthalidone and amlodipine; can restart if pressures are not stable. Chronic Issues: Alcohol substance use disorder -Continue supportive vitamins Traumatic Brain Injury -SENIOR RESEARCH FELLOW Aricept Chronic Pain -SENIOR RESEARCH FELLOW gabapentin, cymbalta Depression and Anxiety w/suicidal ideations -Management per primary team (psychiatry) Medicine team will continue to follow, please page/call with questions. FEN - Regular Diet Ppx - Encourage ambulation CODE - Full Ronald Michael PA-C Hospital Medicine [employer] Brandon Murphy MD - 09/08/2021 3:09 PM CST [facility] Psychiatry Progress Note PATIENT NAME: Key Peres DATE OF SERVICE: 09/08/2021 ATTENDING PRACTITIONER: Brandon Murphy MD HOSPITAL DAY #5 CHIEF COMPLAINT I feel a little worried INTERVAL HISTORY Key was in a worried mood today and was anxious. She wanted a hydroxyzine, which has helped alleaviate her anxiety in the past. She is still having poor memory. She wanted to ask me several questions but could not remember them. She did agree to taking thiamine although she was a little resistant to it. I discussed the risks and benefits including the role of thiamine in the body. She denied any SI, HI, , AH or VH. She wanted to go back home but is not sure how to work on alcohol use. REVIEW OF SYSTEMS Constitutional: Positive for migraine-chronic issue but has constant headache since admission, consulted medicine Psychiatric: Increased anxiety, memory issues. Denies SI. Medication Side effects: None reported CHART REVIEW & MULTIDISCIPLINARY TEAM MEETING Met with the multidisciplinary treatment team and discussed care and treatment planning. Group Attendance and participation: 0/2 PRN Medications: Tylenol 650mg x 1, Hydroxyzine 50mg x 1, Melatonin 6mg x 1 OBJECTIVE Hours of Sleep: Patient Vitals for the past 72 hrs: Hours 09/08/21 1400 0 HOURS 09/08/21 0641 6.8 HOURS 09/07/21 2241 1.8 HOURS 09/07/21 1400 2.3 HOURS 09/07/21 0643 6.8 HOURS 09/06/21 2200 1 HOURS 09/06/21 1500 2 HOURS 09/06/21 0700 6.5 HOURS 09/06/21 0600 6.5 HOURS 09/05/21 2300 0 HOURS LABS: No results found for this or any previous visit (from the past 24 hour(s)). Current Facility-Administered Medications Medication Dose Route Frequency ??? acetaminophen (TYLENOL) tablet 650 mg 650 mg Oral Q6H PRN ??? sennosides-docusate sodium (SENOKOT S) 8.6-50 MG per tablet 2 Tablet 2 Tablet Oral BID PRN And ??? polyethylene glycol (MIRALAX) oral powder 17 g 17 g Oral DAILY PRN And ??? bisacodyl (DULCOLAX) rectal suppository 10 mg 10 mg Rectal DAILY PRN ??? calcium carbonate (TUMS) chewable tablet 1,000 mg 1,000 mg Oral Q4H PRN ??? donepezil (ARICEPT) tablet 10 mg 10 mg Oral At Bedtime ??? DULoxetine (CYMBALTA) delayed release capsule 60 mg 60 mg Oral Daily ??? gabapentin (NEURONTIN) capsule 600 mg 600 mg Oral QID ??? hydrOXYzine pamoate (VISTARIL) capsule 50 mg 50 mg Oral Once ??? hydrOXYzine pamoate (VISTARIL) capsule 50 mg 50 mg Oral Q6H PRN ??? melatonin tablet 3 mg 3 mg Oral At Bedtime ??? melatonin tablet 6 mg 6 mg Oral At bedtime PRN ??? metoprolol succinate (TOPROL XL) extended release tablet 50 mg 50 mg Oral Daily ??? multivitamin with minerals tablet 1 Tablet 1 Tablet Oral Daily ??? nicotine (NICODERM CQ) 21 MG/24HR 1 Patch 1 Patch Transdermal Daily ??? OLANZapine (ZyPREXA) tablet 5 mg 5 mg Oral BID PRN ??? ondansetron (ZOFRAN-ODT) disintegrating tablet 4 mg 4 mg Oral Q8H PRN ??? thiamine (VITAMIN B-1) injection 200 mg 200 mg Intramuscular TID ??? [Held by provider in Manage Orders] thiamine (VITAMIN B-1) tablet 100 mg 100 mg Oral Daily ALLERGY No Known Allergies MENTAL STATUS EXAM BP 126/72 Pulse 64 Temp 97.9 ??F (36.6 ??C) (Skin) Resp 16 Ht 5' 2 (1.575 m) Wt 102.2 kg (225 lb 3.2 oz) SpO2 96% BMI 41.19 kg/m?? Appearance: alert, disheveled Behavior: cooperative, engaged, poor historian Motor: calm Gait and Station: seated Muscle strength and tone: No apparent abnormalities. Speech: normal in rate and loudness Language: intact Thought process: linear Thought content: No longer having thoughts that she wants to . Without any hallucinations or paranoia Associations: intact Mood: constant increased anxiety Affect: very anxious, slightly distressed Orientation: Oriented to person, [facility], month, day, year. Not oriented to date or president. 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 Can't remember where she was living forthe last 2 months despite being told multiple times. Fund of Knowledge: likely diminished due to TBI Insight: poor Judgement: poor IMPRESSION Key Peres is a 46 y.o. old female with history of severe alcohol use disorder, TBI with cognitive impairment from 2013, depression and anxiety who was initially admitted to medical unit for worsening memory loss and suicidal ideation from sober housing. She had a recent admission to [facility] 08/26 - where she had a witnessed seizure lasting 5 minutes suspected 2/2 alcohol withdrawal. Patient is a very unreliable historian on admission. She admits to being hopeless with passive suicidal ideation but no intent or plan in the context of her worsening memory impairment and decline in function. Wernicke's encephalopathy may be contributing to her amnesia given evidence of relapse to alcohol since the fall in the context of a vulnerable brain and possible poor nutrition. Patient received IV thiamine without much improvement. She was also seen by neurology and had EEG with without any seizure activity. Due to ongoing anxiety and passive SI, patient was transferred to inpatient psychiatry as a voluntary patient. Upon admission to psychiatry, patient remains anxious and is a poor historian. Will complete a MOCA and monitor patient for a few days. Concern that alcohol use is a contributing factor in her presentation given her recent alcohol withdrawal seizure.The treatment team has initiated appropriate safety precautions. The patient is being admitted for evaluation, stabilization and treatment for the working diagnosis of cognitive impairment vs encephalopathy vs substance-induced depression. 09/05/2021: MOCA score of 17/30, will reassess again next week once psychiatrically more stable. Anxiety slightly improved today but still a little irritable. Patient wants to return home after discharge. Will need to determine if she is safe to live independently first. 09/06/2021: Ongoing complaint of constant anxiety. Also complaining of migraine. Titrating gabapentinto address anxiety. 09/07/2021: More anxious and distressed today. Memory still very impaired. Head CT from 06/14/21 did show increased atrophy compared to [address] Suspect that this finding and recent alcohol abuse contributing to her recent memory issues. Recommend repeating MOCA later this week. May need to consider CPT to determine level of care she needs on discharge. Also need neuropsych testing after discharge. 09/08: Still ahving memeory issues. Due to concern for WKS will start high-dose IM thiamine for a few days. Will reasses MOCA once this is done. DIAGNOSES & PLAN Principal Psychiatric Diagnoses: # 1: R/o Wernicke's Encephalopathy # 2: Depression, unspecified, organic vs substance induced vs MDD # 3: Anxiety Disorder, unspecified # 4: Major Neurocognitive Disorder secondary to TBI ?? Substance Use Disorders: Alcohol Use Disorder, severe ?? Medical Concerns to be addressed: Continue oral thiamine. Hypokalemia resolved. ?? Hospital Medicine Discharge Note on 09/03/21: Hospital Course Test results:??Labs remarkable for hypokalemia, potassium prior to discharge was 3.1. ??UDS was negative. LFTs within normal limit throughout admission. Folate WNL and B12 mildly elevated. ??No anemia. Procedures:??EEG completed without??evidence of electrographic seizures or epileptiform discharges Complications:??none ?? Brief hospital course by problem: ?? Memory impairment Recent seizure Subjective worsening of TBI-related memory impairment. Recent hospitalization significant for witnessed seizure with abnormal EEG; was not started on anti- epileptic medication. Presentation was notablefor alcohol level of 0.04, possible that seizure was related to alcohol withdrawal. B12??mildly eleva anthony??and Folate WNL. Neurology consulted and EEG completed without evidence of seizure -??thiamine??level??in process -??Treated with IV thiamine and transitioned to oral thiamine 100 mg daily??at discharge ?? Passive??Suicidal Ideation Presenting complaint of suicidal ideation.??Low acute risk - per collateral at [facility] patient stated she would take all of her pills. Does not have access to medication in the hospital, denies active plan on my interview, denies history of suicide attempts.??Evaluated by psychiatry and she is amenable to voluntary admission. - SENIOR RESEARCH FELLOW olanzapine discontinued due to possible contributions to AMS ?? Hypokalemia Noted to be hypokalemic on admission which was repleted with PO and IV potassium. ??Level improved. ??Started on supplemental K 40 meq BID. ??Continue repletion on discharge. - Will need repeat potassium check with PCP after discharge (or while admitted to psych if prolongedadmission), would aim to check by 09/08 at the latest. ?? Addiction Medicine Consult on 09/02/21: Assessment, Recommendations/Plan: Key Peres??is a 46 y.o.??old female??with a past medical history significant for alcohol use disorder, PTSD, anxiety, memory impairment, TBI??who presented to [facility] for??SI. ?? Alcohol use disorder, seemingly severe Denies recent use but unable to account for recent BAL at 0.04 last week. In sober living. Memory impairment limits evaluation and history. Given memory impairment, CD tx not currently indicated. May consider additional medication support but will defer at this time. PLTs and MCV WNLs. - added on LFTs - Could consider EtG vs. EtS screening to r/o recent alcohol consumption but these have limitations. ?? Neurology Consult on 09/01/21: IMPRESSION:?? 46 yo female with history TBI and recent admission at [facility] with new onset seizure, who presents with continuing confusion and poor memory. Currently she is alert and oriented. Exam is otherwise nonfocal. MRI brain was just done at OSH and does not need repeated here. There were no significant abnormalities on the MRI. EEG was also completed at OSH and showed rhythmic right temporal activity. ?? Her ongoing cognitive changes be due to the recent seizure, history of alcohol abuse, prior TBI, andpossibly underlying psychiatric illness. I doubt CASHIER SELF SERVICE GASOLINE infection or subclinical seizures. Given recentextensive work up, I will not order any additional testing at this time. ?? I will repeat the EEG today. If this is abnormal, then I would recommend starting Keppra 500 mg bid.If it is normal, then I would not start a medication. It will be most helpful for her to undergo formal neuropsych evaluation as an outpatient.? RECOMMENDATIONS:?? - EEG to rule out continued seizure activity - Agree with B1, B12, folate studies - Start Keppra 500 bid IF EEG abnormal - outpatient neuropsych testing - Neurology will sign off.? Chas Ureña MD?09/01/2021, 1:20 PM Department of Neurology [facility]? Medication Ordered/Consults/Labs/Tests Ordered: 09/04/2021: Continue on SENIOR RESEARCH FELLOW Donepezil 10mg qhs, Cymbalta 60mg daily, Melatonin 3mg qhs. Zyprexa was stopped due to possible anticholinergic properties worsening AMS. Increased Gabapentin to 400mg QID for alcohol withdrawal syndrome. Will stop Vistaril when pt is less anxious. 09/05/2021: No change today. 09/06/2021: Increase Gabapentin to 600mg QID for possible alcohol withdrawal syndrome. 09/07/2021: Added back PRN Zyprexa as memory has not changed since discontinuing. 09/08: high dose thiamine 200 mg IM tid ?? Milieu Management: Admit to: NE8 Legal: Voluntary but would be holdable if requesting to discharge home Acuity level :Red (caution - at risk, monitored for safety) Encourage the patient to participate in unit activities. RE-CERTIFICATION & RISK ASSESSMENT The patient continues to need, on a daily basis, active inpatient psychiatric treatment for ongoing diagnostic assessment and treatment of the following symptoms: anxiety and worsening memory. The treatment can reasonably be expected to improve the patient's condition. Estimated length of stay is 7-10days. Anticipated disposition: Unknown pending further stabilization ?? Risk Assessment: self harm: Acutely increased risk due to passive SI and impulsivity due to TBI. assault: Low currently Biopsychosocial Stressors: Difficulty with memory, has not been able to work. Patient Strengths: family/social support, willing to take medications, agreeable to hospitalization,stable housing, has insurance Brandon Murphy MD 09/08/2021, 8:33 AM [employer] Darya Jane PA-C - 09/07/2021 11:51 AM CST [facility] Psychiatry Progress Note PATIENT NAME: Key Peres DATE OF SERVICE: 09/07/2021 ATTENDING PRACTITIONER: Darya Jane PA-C HOSPITAL DAY #4 IPF transfer from medicine. Admitted to medical unit on 08/31/21. CHIEF COMPLAINT Daily inpatient psychiatry follow up for anxiety, SI and memory issues INTERVAL HISTORY Patient was seen in her room via video call with TIANNA and JACKI student. Patient is cooperative but more anxious than yesterday. She just woke up and feels very anxious. She complains of constant, increasedanxiety, why is this happening. Reminded of discussion yesterday about her recent alcohol use. Biancas not recall using alcohol. She also could not recall where she was living prior to admission. She has been living at the sober house for over 2 months. Discussed the effect that alcohol can have onmemory and anxiety. Patient does not like being hospitalized, I feel uneasy with feeling of being babysat. Explained recommendation of ongoing hospitalization to stabilize her anxiety and that the treatment team would like to formally reassess her memory issues later this week when her anxiety is better. She is hesitant but ultimately agrees with the plan. She agrees to have her parents involved inthe planning. REVIEW OF SYSTEMS Constitutional: Positive for migraine-chronic issue but has constant headache since admission, consulted medicine Psychiatric: Increased anxiety, memory issues. Denies SI. Medication Side effects: None reported CHART REVIEW & MULTIDISCIPLINARY TEAM MEETING Met with the multidisciplinary treatment team and discussed care and treatment planning. Staff Report: Subjective: Patient has been in her room most of the evening. She has been watching a movie on the DVD player. She is cooperative with her medications. Requested prn vistaril for anxiety and prn melatonin for sleep. Appears less anxious and less irritable this evening. Group Attendance and participation: 0/2 PRN Medications: Tylenol 650mg x 1, Hydroxyzine 50mg x 1, Melatonin 6mg x 1 OBJECTIVE Hours of Sleep: Patient Vitals for the past 72 hrs: Hours 09/07/21 0643 6.8 HOURS 09/06/21 2200 1 HOURS 09/06/21 1500 2 HOURS 09/06/21 0700 6.5 HOURS 09/06/21 0600 6.5 HOURS 09/05/21 2300 0 HOURS 09/05/21 1500 2.3 HOURS 09/05/21 0600 6.3 HOURS 09/04/21 2200 0.3 HOURS 09/04/21 1300 3.5 HOURS LABS: No results found for this or any previous visit (from the past 24 hour(s)). Current Facility-Administered Medications Medication Dose Route Frequency ??? acetaminophen (TYLENOL) tablet 650 mg 650 mg Oral Q6H PRN ??? sennosides-docusate sodium (SENOKOT S) 8.6-50 MG per tablet 2 Tablet 2 Tablet Oral BID PRN And ??? polyethylene glycol (MIRALAX) oral powder 17 g 17 g Oral DAILY PRN And ??? bisacodyl (DULCOLAX) rectal suppository 10 mg 10 mg Rectal DAILY PRN ??? calcium carbonate (TUMS) chewable tablet 1,000 mg 1,000 mg Oral Q4H PRN ??? donepezil (ARICEPT) tablet 10 mg 10 mg Oral At Bedtime ??? DULoxetine (CYMBALTA) delayed release capsule 60 mg 60 mg Oral Daily ??? gabapentin (NEURONTIN) capsule 600 mg 600 mg Oral QID ??? hydrOXYzine pamoate (VISTARIL) capsule 50 mg 50 mg Oral Q6H PRN ??? melatonin tablet 3 mg 3 mg Oral At Bedtime ??? melatonin tablet 6 mg 6 mg Oral At bedtime PRN ??? nicotine (NICODERM CQ) 21 MG/24HR 1 Patch 1 Patch Transdermal Daily ??? OLANZapine (ZyPREXA) tablet 5 mg 5 mg Oral ONCE PRN Or ??? OLANZapine (ZyPREXA) 10 mg in sterile water 2 mL injection 10 mg Intramuscular ONCE PRN ??? ondansetron (ZOFRAN-ODT) disintegrating tablet 4 mg 4 mg Oral Q8H PRN ??? thiamine (VITAMIN B-1) tablet 100 mg 100 mg Oral Daily ALLERGY No Known Allergies MENTAL STATUS EXAM BP (!) 145/95 Pulse 82 Temp 98.2 ??F (36.8 ??C) (Skin) Resp 18 SpO2 95% Appearance: alert, disheveled Behavior: cooperative, engaged, poor historian Motor: calm Gait and Station: seated Muscle strength and tone: No apparent abnormalities. Speech: normal in rate and loudness Language: intact Thought process: linear Thought content: No longer having thoughts that she wants to . Without any hallucinations or paranoia Associations: intact Mood: constant increased anxiety Affect: very anxious, slightly distressed Orientation: Oriented to person, [facility], month, day, year. Not oriented to date or president. Attention and Concentration: adequate Memory: impaired--short term and residential impairment noted. Can't remember where she was living forthe last 2 months despite being told multiple times. Fund of Knowledge: likely diminished due to TBI Insight: poor Judgement: poor IMPRESSION Key Peres is a 46 y.o. old female with history of severe alcohol use disorder, TBI with cognitive impairment from 2013, depression and anxiety who was initially admitted to medical unit for worsening memory loss and suicidal ideation from sober housing. She had a recent admission to [facility] 08/26 - where she had a witnessed seizure lasting 5 minutes suspected 2/2 alcohol withdrawal. Patient is a very unreliable historian on admission. She admits to being hopeless with passive suicidal ideation but no intent or plan in the context of her worsening memory impairment and decline in function. Wernicke's encephalopathy may be contributing to her amnesia given evidence of relapse to alcohol since the fall in the context of a vulnerable brain and possible poor nutrition. Patient received IV thiamine without much improvement. She was also seen by neurology and had EEG with without any seizure activity. Due to ongoing anxiety and passive SI, patient was transferred to inpatient psychiatry as a voluntary patient. Upon admission to psychiatry, patient remains anxious and is a poor historian. Will complete a MOCA and monitor patient for a few days. Concern that alcohol use is a contributing factor in her presentation given her recent alcohol withdrawal seizure.The treatment team has initiated appropriate safety precautions. The patient is being admitted for evaluation, stabilization and treatment for the working diagnosis of cognitive impairment vs encephalopathy vs substance-induced depression. 09/05/2021: MOCA score of 17/30, will reassess again next week once psychiatrically more stable. Anxiety slightly improved today but still a little irritable. Patient wants to return home after discharge. Will need to determine if she is safe to live independently first. 09/06/2021: Ongoing complaint of constant anxiety. Also complaining of migraine. Titrating gabapentinto address anxiety. 09/07/2021: More anxious and distressed today. Memory still very impaired. Head CT from 06/14/21 did show increased atrophy compared to [address] Suspect that this finding and recent alcohol abuse contributing to her recent memory issues. Recommend repeating MOCA later this week. May need to consider CPT to determine level of care she needs on discharge. Also need neuropsych testing after discharge. DIAGNOSES & PLAN Principal Psychiatric Diagnoses: # 1: R/o Wernicke's Encephalopathy # 2: Depression, unspecified, organic vs substance induced vs MDD # 3: Anxiety Disorder, unspecified # 4: Major Neurocognitive Disorder secondary to TBI ?? Substance Use Disorders: Alcohol Use Disorder, severe ?? Medical Concerns to be addressed: Continue oral thiamine. Hypokalemia resolved. ?? Hospital Medicine Discharge Note on 09/03/21: Hospital Course Test results:??Labs remarkable for hypokalemia, potassium prior to discharge was 3.1. ??UDS was negative. LFTs within normal limit throughout admission. Folate WNL and B12 mildly elevated. ??No anemia. Procedures:??EEG completed without??evidence of electrographic seizures or epileptiform discharges Complications:??none ?? Brief hospital course by problem: ?? Memory impairment Recent seizure Subjective worsening of TBI-related memory impairment. Recent hospitalization significant for witnessed seizure with abnormal EEG; was not started on anti- epileptic medication. Presentation was notablefor alcohol level of 0.04, possible that seizure was related to alcohol withdrawal. B12??mildly eleva anthony??and Folate WNL. Neurology consulted and EEG completed without evidence of seizure -??thiamine??level??in process -??Treated with IV thiamine and transitioned to oral thiamine 100 mg daily??at discharge ?? Passive??Suicidal Ideation Presenting complaint of suicidal ideation.??Low acute risk - per collateral at [facility] patient stated she would take all of her pills. Does not have access to medication in the hospital, denies active plan on my interview, denies history of suicide attempts.??Evaluated by psychiatry and she is amenable to voluntary admission. - SENIOR RESEARCH FELLOW olanzapine discontinued due to possible contributions to AMS ?? Hypokalemia Noted to be hypokalemic on admission which was repleted with PO and IV potassium. ??Level improved. ??Started on supplemental K 40 meq BID. ??Continue repletion on discharge. - Will need repeat potassium check with PCP after discharge (or while admitted to psych if prolongedadmission), would aim to check by 2/1 at the latest. ?? Addiction Medicine Consult on 09/02/21: Assessment, Recommendations/Plan: Key Peres??is a 46 y.o.??old female??with a past medical history significant for alcohol use disorder, PTSD, anxiety, memory impairment, TBI??who presented to [facility] for??SI. ?? Alcohol use disorder, seemingly severe Denies recent use but unable to account for recent BAL at 0.04 last week. In sober living. Memory impairment limits evaluation and history. Given memory impairment, CD tx not currently indicated. May consider additional medication support but will defer at this time. PLTs and MCV WNLs. - added on LFTs - Could consider EtG vs. EtS screening to r/o recent alcohol consumption but these have limitations. ?? Neurology Consult on 09/01/21: IMPRESSION:?? 46 yo female with history TBI and recent admission at [facility] with new onset seizure, who presents with continuing confusion and poor memory. Currently she is alert and oriented. Exam is otherwise nonfocal. MRI brain was just done at OSH and does not need repeated here. There were no significant abnormalities on the MRI. EEG was also completed at OSH and showed rhythmic right temporal activity. ?? Her ongoing cognitive changes be due to the recent seizure, history of alcohol abuse, prior TBI, andpossibly underlying psychiatric illness. I doubt CASHIER SELF SERVICE GASOLINE infection or subclinical seizures. Given recentextensive work up, I will not order any additional testing at this time. ?? I will repeat the EEG today. If this is abnormal, then I would recommend starting Keppra 500 mg bid.If it is normal, then I would not start a medication. It will be most helpful for her to undergo formal neuropsych evaluation as an outpatient.? RECOMMENDATIONS:?? - EEG to rule out continued seizure activity - Agree with B1, B12, folate studies - Start Keppra 500 bid IF EEG abnormal - outpatient neuropsych testing - Neurology will sign off.? Chas Ureña MD?09/01/2021, 1:20 PM Department of Neurology [facility]? Medication Ordered/Consults/Labs/Tests Ordered: 09/04/2021: Continue on SENIOR RESEARCH FELLOW Donepezil 10mg qhs, Cymbalta 60mg daily, Melatonin 3mg qhs. Zyprexa was stopped due to possible anticholinergic properties worsening AMS. Increased Gabapentin to 400mg QID for alcohol withdrawal syndrome. Will stop Vistaril when pt is less anxious. 09/05/2021: No change today. 09/06/2021: Increase Gabapentin to 600mg QID for possible alcohol withdrawal syndrome. 09/07/2021: Added back PRN Zyprexa as memory has not changed since discontinuing. ?? Milieu Management: Admit to: NE8 Legal: Voluntary but would be holdable if requesting to discharge home Acuity level :Red (caution - at risk, monitored for safety) Encourage the patient to participate in unit activities. RE-CERTIFICATION & RISK ASSESSMENT The patient continues to need, on a daily basis, active inpatient psychiatric treatment for ongoing diagnostic assessment and treatment of the following symptoms: anxiety and worsening memory. The treatment can reasonably be expected to improve the patient's condition. Estimated length of stay is 7-10days. Anticipated disposition: Unknown pending further stabilization ?? Risk Assessment: self harm: Acutely increased risk due to passive SI and impulsivity due to TBI. assault: Low currently Biopsychosocial Stressors: Difficulty with memory, has not been able to work. Patient Strengths: family/social support, willing to take medications, agreeable to hospitalization,stable housing, has insurance ?? This visit was conducted via video. Location of clinician Home. Location of patient [facility]. Billing based on: Complexity Report Completed By: Darya aJne PA-C [employer] Darya Jane PA-C - 09/06/2021 8:33 AM CST [facility] Psychiatry Progress Note PATIENT NAME: Key Peres DATE OF SERVICE: 09/06/2021 ATTENDING PRACTITIONER: Darya Jane PA-C HOSPITAL DAY #3 IPF transfer from medicine. Admitted to medical unit on 08/31/21. CHIEF COMPLAINT Daily inpatient psychiatry follow up for anxiety, SI and memory issues INTERVAL HISTORY Patient was seen in her room via video call. Patient is cooperative and appears less anxious and less irritable. She complains of ongoing migraine and anxiety. Typically she only uses PRN medication 1-2 times per week for her migraines and a few times a week for anxiety. She is having constant anxietyin the hospital and also has had a headache every day. Offered to order Imitrex for her migraine which she uses at home. Also discussed concern about recent alcohol abuse that may be contributing to her increased anxiety as it can take a few weeks for mood and anxiety to stabilize after excessive use of alcohol. She is accepting of this information. Discussed recommendation to increase Gabapentin dose for anxiety and she is agreeable. She is hoping to return home soon. She agrees to allow the treatment team to talk with her family for discharge planning. REVIEW OF SYSTEMS Constitutional: Positive for migraine-chronic issue, offered Imitrex Psychiatric: Increased anxiety, memory issues. Denies SI. Medication Side effects: None reported CHART REVIEW & MULTIDISCIPLINARY TEAM MEETING Met with the multidisciplinary treatment team and discussed care and treatment planning. Staff Report: Subjective: Patient has been in her room most of the evening. She has been watching a movie on the DVD player. She is cooperative with her medications. Requested prn vistaril for anxiety and prn melatonin for sleep. Appears less anxious and less irritable this evening.. Group Attendance and participation: 0/2 PRN Medications: Tylenol 650mg x 1, Hydroxyzine 50mg x 1, Melatonin 6mg x 1 OBJECTIVE Hours of Sleep: Patient Vitals for the past 72 hrs: Hours 09/06/21 0600 6.5 HOURS 09/05/21 2300 0 HOURS 09/05/21 1500 2.3 HOURS 09/05/21 0600 6.3 HOURS 09/04/21 2200 0.3 HOURS 09/04/21 1300 3.5 HOURS 09/04/21 0641 6 HOURS 09/03/21 2240 0 HOURS LABS: Hospital Encounter on 09/03/21 (from the past 24 hour(s)) Potassium Result Value Ref Range Potassium 3.5 3.5 - 5.1 mmol/L Current Facility-Administered Medications Medication Dose Route Frequency ??? acetaminophen (TYLENOL) tablet 650 mg 650 mg Oral Q6H PRN ??? sennosides-docusate sodium (SENOKOT S) 8.6-50 MG per tablet 2 Tablet 2 Tablet Oral BID PRN And ??? polyethylene glycol (MIRALAX) oral powder 17 g 17 g Oral DAILY PRN And ??? bisacodyl (DULCOLAX) rectal suppository 10 mg 10 mg Rectal DAILY PRN ??? calcium carbonate (TUMS) chewable tablet 1,000 mg 1,000 mg Oral Q4H PRN ??? donepezil (ARICEPT) tablet 10 mg 10 mg Oral At Bedtime ??? DULoxetine (CYMBALTA) delayed release capsule 60 mg 60 mg Oral Daily ??? gabapentin (NEURONTIN) capsule 400 mg 400 mg Oral QID ??? hydrOXYzine pamoate (VISTARIL) capsule 50 mg 50 mg Oral Q6H PRN ??? melatonin tablet 3 mg 3 mg Oral At Bedtime ??? melatonin tablet 6 mg 6 mg Oral At bedtime PRN ??? nicotine (NICODERM CQ) 21 MG/24HR 1 Patch 1 Patch Transdermal Daily ??? OLANZapine (ZyPREXA) tablet 5 mg 5 mg Oral ONCE PRN Or ??? OLANZapine (ZyPREXA) 10 mg in sterile water 2 mL injection 10 mg Intramuscular ONCE PRN ??? ondansetron (ZOFRAN-ODT) disintegrating tablet 4 mg 4 mg Oral Q8H PRN ??? [Held by provider in Manage Orders] potassium bicarbonate-citric acid (EFFER-K) effervescent tablet 20 mEq 20 mEq Oral BID after meals ??? thiamine (VITAMIN B-1) tablet 100 mg 100 mg Oral Daily ALLERGY No Known Allergies MENTAL STATUS EXAM BP 129/78 Pulse 89 Temp 98.4 ??F (36.9 ??C) (Skin) Resp 16 SpO2 96% Appearance: alert, disheveled Behavior: cooperative, engaged, poor historian Motor: calm Gait and Station: seated Muscle strength and tone: No apparent abnormalities. Speech: normal in rate and loudness Language: intact Thought process: linear Thought content: No longer having thoughts that she wants to . Without any hallucinations or paranoia Associations: intact Mood: frustrated Affect: less anxious, slightly irritable Orientation: Oriented to person, [facility], month, day, year. Not oriented to date or president. 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 old female with history of severe alcohol use disorder, TBI with cognitive impairment from 2012, depression and anxiety who was initially admitted to medical unit for worsening memory loss and suicidal ideation from sober housing. She had a recent admission to [facility] 08/26 - where she had a witnessed seizure lasting 5 minutes suspected 2/2 alcohol withdrawal. Patient is a very unreliable historian on admission. She admits to being hopeless with passive suicidal ideation but no intent or plan in the context of her worsening memory impairment and decline in function. Wernicke's encephalopathy may be contributing to her amnesia given evidence of relapse to alcohol since the fall in the context of a vulnerable brain and possible poor nutrition. Patient received IV thiamine without much improvement. She was also seen by neurology and had EEG with without any seizure activity. Due to ongoing anxiety and passive SI, patient was transferred to inpatient psychiatry as a voluntary patient. Upon admission to psychiatry, patient remains anxious and is a poor historian. Will complete a MOCA and monitor patient for a few days. Concern that alcohol use is a contributing factor in her presentation given her recent alcohol withdrawal seizure.The treatment team has initiated appropriate safety precautions. The patient is being admitted for evaluation, stabilization and treatment for the working diagnosis of cognitive impairment vs encephalopathy vs substance-induced depression. 09/05/2021: MOCA score of 17/30, will reassess again next week once psychiatrically more stable. Anxiety slightly improved today but still a little irritable. Patient wants to return home after discharge. Will need to determine if she is safe to live independently first. 09/06/2021: Ongoing complaint of constant anxiety. Also complaining of migraine. Titrating gabapentinto address anxiety. DIAGNOSES & PLAN Principal Psychiatric Diagnoses: # 1: R/o Wernicke's Encephalopathy # 2: Depression, unspecified, organic vs substance induced vs MDD # 3: Anxiety Disorder, unspecified # 4: Major Neurocognitive Disorder secondary to TBI ?? Substance Use Disorders: Alcohol Use Disorder, severe ?? Medical Concerns to be addressed: Continue oral thiamine. Also recheck potassium level in am. ?? Hospital Medicine Discharge Note on 09/03/21: Hospital Course Test results:??Labs remarkable for hypokalemia, potassium prior to discharge was 3.1. ??UDS was negative. LFTs within normal limit throughout admission. Folate WNL and B12 mildly elevated. ??No anemia. Procedures:??EEG completed without??evidence of electrographic seizures or epileptiform discharges Complications:??none ?? Brief hospital course by problem: ?? Memory impairment Recent seizure Subjective worsening of TBI-related memory impairment. Recent hospitalization significant for witnessed seizure with abnormal EEG; was not started on anti- epileptic medication. Presentation was notablefor alcohol level of 0.04, possible that seizure was related to alcohol withdrawal. B12??mildly eleva anthony??and Folate WNL. Neurology consulted and EEG completed without evidence of seizure -??thiamine??level??in process -??Treated with IV thiamine and transitioned to oral thiamine 100 mg daily??at discharge ?? Passive??Suicidal Ideation Presenting complaint of suicidal ideation.??Low acute risk - per collateral at [facility] patient stated she would take all of her pills. Does not have access to medication in the hospital, denies active plan on my interview, denies history of suicide attempts.??Evaluated by psychiatry and she is amenable to voluntary admission. - SENIOR RESEARCH FELLOW olanzapine discontinued due to possible contributions to AMS ?? Hypokalemia Noted to be hypokalemic on admission which was repleted with PO and IV potassium. ??Level improved. ??Started on supplemental K 40 meq BID. ??Continue repletion on discharge. - Will need repeat potassium check with PCP after discharge (or while admitted to psych if prolongedadmission), would aim to check by 09/08 at the latest. ?? Addiction Medicine Consult on 09/02/21: Assessment, Recommendations/Plan: Key Peres??is a 46 y.o.??old female??with a past medical history significant for alcohol use disorder, PTSD, anxiety, memory impairment, TBI??who presented to [facility] for??SI. ?? Alcohol use disorder, seemingly severe Denies recent use but unable to account for recent BAL at 0.04 last week. In sober living. Memory impairment limits evaluation and history. Given memory impairment, CD tx not currently indicated. May consider additional medication support but will defer at this time. PLTs and MCV WNLs. - added on LFTs - Could consider EtG vs. EtS screening to r/o recent alcohol consumption but these have limitations. ?? Neurology Consult on 09/01/21: IMPRESSION:?? 46 yo female with history TBI and recent admission at [facility] with new onset seizure, who presents with continuing confusion and poor memory. Currently she is alert and oriented. Exam is otherwise nonfocal. MRI brain was just done at OSH and does not need repeated here. There were no significant abnormalities on the MRI. EEG was also completed at OSH and showed rhythmic right temporal activity. ?? Her ongoing cognitive changes be due to the recent seizure, history of alcohol abuse, prior TBI, andpossibly underlying psychiatric illness. I doubt CASHIER SEL[employer] GASOLINE infection or subclinical seizures. Given recentextensive work up, I will not order any additional testing at this time. ?? I will repeat the EEG today. If this is abnormal, then I would recommend starting Keppra 500 mg bid.If it is normal, then I would not start a medication. It will be most helpful for her to undergo formal neuropsych evaluation as an outpatient.? RECOMMENDATIONS:?? - EEG to rule out continued seizure activity - Agree with B1, B12, folate studies - Start Keppra 500 bid IF EEG abnormal - outpatient neuropsych testing - Neurology will sign off.? Chas Ureña MD?09/01/2021, 1:20 PM Department of Neurology [facility]? Medication Ordered/Consults/Labs/Tests Ordered: 09/04/2021: Continue on SENIOR RESEARCH FELLOW Donepezil 10mg qhs, Cymbalta 60mg daily, Melatonin 3mg qhs. Zyprexa was stopped due to possible anticholinergic properties worsening AMS. Increased Gabapentin to 400mg QID for alcohol withdrawal syndrome. Will stop Vistaril when pt is less anxious. 09/05/2021: No change today. 09/06/2021: Increase Gabapentin to 600mg QID for possible alcohol withdrawal syndrome. ?? Milieu Management: Admit to: NE8 Legal: Voluntary Acuity level :Red (caution - at risk, monitored for safety) Encourage the patient to participate in unit activities. RE-CERTIFICATION & RISK ASSESSMENT The patient continues to need, on a daily basis, active inpatient psychiatric treatment for ongoing diagnostic assessment and treatment of the following symptoms: anxiety and worsening memory. The treatment can reasonably be expected to improve the patient's condition. Estimated length of stay is 3-5 days. Anticipated disposition: Unknown pending further stabilization ?? Risk Assessment: self harm: Acutely increased risk due to passive SI and impulsivity due to TBI. assault: Low currently Biopsychosocial Stressors: Difficulty with memory, has not been able to work. Patient Strengths: family/social support, willing to take medications, agreeable to hospitalization,stable housing, has insurance ?? This visit was conducted via video. Location of clinician Home. Location of patient [facility]. Billing based on: Complexity Report Completed By: Darya Jane PA-C [employer] Darya Jane PA-C - 09/05/2021 8:13 AM CST [facility] Psychiatry Progress Note PATIENT NAME: Key Peres DATE OF SERVICE: 09/05/2021 ATTENDING PRACTITIONER: Darya Jane PA-C HOSPITAL DAY #2 IPF transfer from medicine. Admitted to medical unit on 08/31/21. CHIEF COMPLAINT Daily inpatient psychiatry follow up for anxiety, SI and memory issues INTERVAL HISTORY Patient was seen in her room via video call. Patient is cooperative and appears less anxious but still slightly irritable at times. She thinks that she slept better than the night before. She is still having anxiety. She thinks that the stress of not seeing her children, ages 23, 21 and 17, has causedher anxiety. She denies any thoughts about wanting to be . She is frustrated about being on psychiatric unit because it is loud and I used to care for these people. Patient agreed to remain hospitalized until Tuesday if she can have a quieter room. Discussed that the treatment team needs to see improvement in her memory and anxiety before a discharge plan can be recommended. She would like to return to home with her daughter. REVIEW OF SYSTEMS Constitutional: Without any physical complaints or pain Psychiatric: Increased anxiety, memory issues. Denies SI. Medication Side effects: None reported CHART REVIEW & MULTIDISCIPLINARY TEAM MEETING Met with the multidisciplinary treatment team and discussed care and treatment planning. Staff Report: Subjective: Patient has been isolative to her room. She asks to go back to the main hospital. Statesshe doesn't need to be here and that she is not crazy. She states she is anxious and has memory issues. Received prn vistaril x 2. Received prn melatonin for sleep. Group Attendance and participation: 0/5 PRN Medications: Tylenol 650mg x 1, Hydroxyzine 50mg x 2, Melatonin 6mg x 1 OBJECTIVE Hours of Sleep: Patient Vitals for the past 72 hrs: Hours 09/05/21 0600 6.3 HOURS 09/04/21 2200 0.3 HOURS 09/04/21 1300 3.5 HOURS 09/04/21 0641 6 HOURS 09/03/21 2240 0 HOURS LABS: No results found for this or any previous visit (from the past 24 hour(s)). Current Facility-Administered Medications Medication Dose Route Frequency ??? acetaminophen (TYLENOL) tablet 650 mg 650 mg Oral Q6H PRN ??? sennosides-docusate sodium (SENOKOT S) 8.6-50 MG per tablet 2 Tablet 2 Tablet Oral BID PRN And ??? polyethylene glycol (MIRALAX) oral powder 17 g 17 g Oral DAILY PRN And ??? bisacodyl (DULCOLAX) rectal suppository 10 mg 10 mg Rectal DAILY PRN ??? calcium carbonate (TUMS) chewable tablet 1,000 mg 1,000 mg Oral Q4H PRN ??? donepezil (ARICEPT) tablet 10 mg 10 mg Oral At Bedtime ??? DULoxetine (CYMBALTA) delayed release capsule 60 mg 60 mg Oral Daily ??? gabapentin (NEURONTIN) capsule 400 mg 400 mg Oral QID ??? hydrOXYzine pamoate (VISTARIL) capsule 50 mg 50 mg Oral Q6H PRN ??? melatonin tablet 3 mg 3 mg Oral At Bedtime ??? melatonin tablet 6 mg 6 mg Oral At bedtime PRN ??? nicotine (NICODERM CQ) 21 MG/24HR 1 Patch 1 Patch Transdermal Daily ??? OLANZapine (ZyPREXA) tablet 5 mg 5 mg Oral ONCE PRN Or ??? OLANZapine (ZyPREXA) 10 mg in sterile water 2 mL injection 10 mg Intramuscular ONCE PRN ??? ondansetron (ZOFRAN-ODT) disintegrating tablet 4 mg 4 mg Oral Q8H PRN ??? [Held by provider in Manage Orders] potassium bicarbonate-citric acid (EFFER-K) effervescent tablet 20 mEq 20 mEq Oral BID after meals ??? thiamine (VITAMIN B-1) tablet 100 mg 100 mg Oral Daily ALLERGY No Known Allergies MENTAL STATUS EXAM BP 135/51 Pulse 72 Temp 98 ??F (36.7 ??C) (Skin) Resp 16 SpO2 94% Appearance: alert, disheveled Behavior: cooperative, engaged, poor historian Motor: calm Gait and Station: seated Muscle strength and tone: No apparent abnormalities. Speech: normal in rate and loudness Language: intact Thought process: linear Thought content: No longer having thoughts that she wants to . Without any hallucinations or paranoia Associations: intact Mood: frustrated Affect: less anxious, slightly irritable Orientation: Oriented to person, [facility], month, day, year. Not oriented to date or president. 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 old female with history of severe alcohol use disorder, TBI with cognitive impairment from 2012, depression and anxiety who was initially admitted to medical unit for worsening memory loss and suicidal ideation from sober housing. She had a recent admission to [facility] 08/26 - where she had a witnessed seizure lasting 5 minutes suspected 2/2 alcohol withdrawal. Patient is a very unreliable historian on admission. She admits to being hopeless with passive suicidal ideation but no intent or plan in the context of her worsening memory impairment and decline in function. Wernicke's encephalopathy may be contributing to her amnesia given evidence of relapse to alcohol since the fall in the context of a vulnerable brain and possible poor nutrition. Patient received IV thiamine without much improvement. She was also seen by neurology and had EEG with without any seizure activity. Due to ongoing anxiety and passive SI, patient was transferred to inpatient psychiatry as a voluntary patient. Upon admission to psychiatry, patient remains anxious and is a poor historian. Will complete a MOCA and monitor patient for a few days. Concern that alcohol use is a contributing factor in her presentation given her recent alcohol withdrawal seizure.The treatment team has initiated appropriate safety precautions. The patient is being admitted for evaluation, stabilization and treatment for the working diagnosis of cognitive impairment vs encephalopathy vs substance-induced depression. 09/05/2021: MOCA score of 17/30, will reassess again next week once psychiatrically more stable. Anxiety slightly improved today but still a little irritable. Patient wants to return home after discharge. Will need to determine if she is safe to live independently first. DIAGNOSES & PLAN Principal Psychiatric Diagnoses: # 1: R/o Wernicke's Encephalopathy # 2: Depression, unspecified, organic vs substance induced vs MDD # 3: Anxiety Disorder, unspecified # 4: Major Neurocognitive Disorder secondary to TBI ?? Substance Use Disorders: Alcohol Use Disorder, severe ?? Medical Concerns to be addressed: Continue oral thiamine. Also recheck potassium level in am. ?? Hospital Medicine Discharge Note on 09/03/21: Hospital Course Test results:??Labs remarkable for hypokalemia, potassium prior to discharge was 3.1. ??UDS was negative. LFTs within normal limit throughout admission. Folate WNL and B12 mildly elevated. ??No anemia. Procedures:??EEG completed without??evidence of electrographic seizures or epileptiform discharges Complications:??none ?? Brief hospital course by problem: ?? Memory impairment Recent seizure Subjective worsening of TBI-related memory impairment. Recent hospitalization significant for witnessed seizure with abnormal EEG; was not started on anti- epileptic medication. Presentation was notablefor alcohol level of 0.04, possible that seizure was related to alcohol withdrawal. B12??mildly eleva anthony??and Folate WNL. Neurology consulted and EEG completed without evidence of seizure -??thiamine??level??in process -??Treated with IV thiamine and transitioned to oral thiamine 100 mg daily??at discharge ?? Passive??Suicidal Ideation Presenting complaint of suicidal ideation.??Low acute risk - per collateral at [facility] patient stated she would take all of her pills. Does not have access to medication in the hospital, denies active plan on my interview, denies history of suicide attempts.??Evaluated by psychiatry and she is amenable to voluntary admission. - SENIOR RESEARCH FELLOW olanzapine discontinued due to possible contributions to AMS ?? Hypokalemia Noted to be hypokalemic on admission which was repleted with PO and IV potassium. ??Level improved. ??Started on supplemental K 40 meq BID. ??Continue repletion on discharge. - Will need repeat potassium check with PCP after discharge (or while admitted to psych if prolongedadmission), would aim to check by 2/ at the latest. ?? Addiction Medicine Consult on 09/02/21: Assessment, Recommendations/Plan: Keyevert Peres??is a 46 y.o.??old female??with a past medical history significant for alcohol use disorder, PTSD, anxiety, memory impairment, TBI??who presented to [facility] for??SI. ?? Alcohol use disorder, seemingly severe Denies recent use but unable to account for recent BAL at 0.04 last week. In sober living. Memory impairment limits evaluation and history. Given memory impairment, CD tx not currently indicated. May consider additional medication support but will defer at this time. PLTs and MCV WNLs. - added on LFTs - Could consider EtG vs. EtS screening to r/o recent alcohol consumption but these have limitations. ?? Neurology Consult on 09/01/21: IMPRESSION:?? 46 yo female with history TBI and recent admission at [facility] with new onset seizure, who presents with continuing confusion and poor memory. Currently she is alert and oriented. Exam is otherwise nonfocal. MRI brain was just done at OSH and does not need repeated here. There were no significant abnormalities on the MRI. EEG was also completed at OSH and showed rhythmic right temporal activity. ?? Her ongoing cognitive changes be due to the recent seizure, history of alcohol abuse, prior TBI, andpossibly underlying psychiatric illness. I doubt CASH[employer] S[employer] GASOLINE infection or subclinical seizures. Given recentextensive work up, I will not order any additional testing at this time. ?? I will repeat the EEG today. If this is abnormal, then I would recommend starting Keppra 500 mg bid.If it is normal, then I would not start a medication. It will be most helpful for her to undergo formal neuropsych evaluation as an outpatient.? RECOMMENDATIONS:?? - EEG to rule out continued seizure activity - Agree with B1, B12, folate studies - Start Keppra 500 bid IF EEG abnormal - outpatient neuropsych testing - Neurology will sign off.? Chas Ureña MD?09/01/2021, 1:20 PM Department of Neurology [facility]? Medication Ordered/Consults/Labs/Tests Ordered: 09/04/2021: Continue on SENIOR RESEARCH FELLOW Donepezil 10mg qhs, Cymbalta 60mg daily, Melatonin 3mg qhs. Zyprexa was stopped due to possible anticholinergic properties worsening AMS. Increased Gabapentin to 400mg QID for alcohol withdrawal syndrome. Will stop Vistaril when pt is less anxious. 09/05/2021: No change today. ?? Milieu Management: Admit to: NE8 Legal: Voluntary Acuity level :Red (caution - at risk, monitored for safety) Encourage the patient to participate in unit activities. RE-CERTIFICATION & RISK ASSESSMENT The patient continues to need, on a daily basis, active inpatient psychiatric treatment for ongoing diagnostic assessment and treatment of the following symptoms: anxiety and worsening memory. The treatment can reasonably be expected to improve the patient's condition. Estimated length of stay is 3-5 days. Anticipated disposition: Unknown pending further stabilization ?? Risk Assessment: self harm: Acutely increased risk due to passive SI and impulsivity due to TBI. assault: Low currently Biopsychosocial Stressors: Difficulty with memory, has not been able to work. Patient Strengths: family/social support, willing to take medications, agreeable to hospitalization,stable housing, has insurance ?? This visit was conducted via video. Location of clinician Home. Location of patient [facility]. Billing based on: Complexity Report Completed By: Darya Jane PA-C [employer] Jenifer Mayers, ROTARY HELPER, BEE WORKER - 09/03/2021 8:48 PM CST Key Peres 09/03/2021 8:48 PM Patient has been transferred to [facility] from the medicine service. she has been seen by the medicine and Psych Consult teams today. Please see their notes for more information. The patient requires transfer to acute inpatient psychiatric treatment secondary to suicidal ideation. Assessment and Plan from Medicine Team Assessment and Plan: 46 y.o. old female with history of TBI, EtOH use disorder, PTSD, and anxiety who had recent witnessed seizure and prior abnormal EEG who presents with suicidal ideation and concern for worsening memoryloss. ?? EEG completed 09/01 without evidence of electrographic seizures or epileptiform discharges. Empiric IV thiamine. ?? Today: - Continue IV thiamine - Replenish potassium - OT evaluation ?? #Memory impairment #Recent seizure Subjective worsening of TBI-related memory impairment. Recent hospitalization significant for witnessed seizure with abnormal EEG; was not started on anti- epileptic medication. Presentation was notablefor alcohol level of 0.04, possible that seizure was related to alcohol withdrawal. - Checked B12 and Folate; thiamine in process - Neurology consult, appreciate recommendations, now signed off - EEG normal, would not start anti-epileptic at this time, low suspicion for CASHIER SELF SERVICE GASOLINE infection. - Requested recent CT and MRI be pushed to PACS - Continue thiamine 100 mg daily - OT consult, appreciate recommendations ?? #Suicidal Ideation Low acute risk - per collateral at [facility] patient stated she would take all of her pills. Does not have access to medication in the hospital, denies active plan on my interview, denies history of suicide attempts. - Defer suicide precautions - Psychiatry consult, appreciate recommendations - high dose IV thiamine, hold olanzapine ?? #Hypokalemia Replenish and monitor with daily metabolic panel. Likely secondary to poor PO intake; no report of diarrhea. Mg 1.9, Phos 2.4 on 09/02 ?? Chronic Issues: #PTSD #Anxiety - hold olanzapine - continue SENIOR RESEARCH FELLOW donepezil, gabapentin, and duloxetine - scheduled melatonin ?? #Headache - Patient reports 2-3 days of headache per week, describes a headache that starts in the back of herhead and spreads to the front - Tylenol 500 mg q4h PRN ?? #EtOH Use Disorder - Patient reports she has not used alcohol in over 80 days. Presentation at [facility] on 08/26 notable for ethanol level of 0.04. Per report, no ethanol detected on breathylzer in ED. - Will defer CIWA protocol at this time given low suspicion of alcohol withdrawal - Addiction medicine consult ?? Prophylaxis: Low risk for DVT, chemoprophylaxis not indicated Disposition: Inpatient Code Status/Goals of Care: Full ?? Patient staffed with Dr. Salazar. ?? Faizan Kingsley MD Resident Physician PGY-1 Pager: [phone]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 memory impairment and decline in function. Wernicke's encephalopathy may be contributing to her amnesia given evidence of relapse to alcoholsince the fall in the context of a vulnerable brain and possible poor nutrition. Patient received IVthiamine without much improvement. She was also seen by neurology and had EEG with without any seizure activity. Due to ongoing anxiety and passive SI, patient was transferred to inpatient psychiatry as a voluntary patient. Upon admission to psychiatry, patient remains anxious and is a poor historian.Will complete a MOCA and monitor patient for a few days. Concern that alcohol use is a contributing factor in her presentation given her recent alcohol withdrawal seizure.The treatment team has initiated appropriate safety precautions. The patient is being admitted for evaluation, stabilization and treatment for the working diagnosis of cognitive impairment vs encephalopathy vs substance-induced depression. 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 Also recheck potassium level in am. Hospital Medicine Discharge Note on 09/03/21: Hospital Course Test results: Labs remarkable for hypokalemia, potassium prior to discharge was 3.1. UDS was negative. LFTs within normal limit throughout admission. Folate WNL and B12 mildly elevated. No anemia. Procedures: EEG completed without evidence of electrographic seizures or epileptiform discharges Complications: none ?? Brief hospital course by problem: ?? Memory impairment Recent seizure Subjective worsening of TBI-related memory impairment. Recent hospitalization significant for witnessed seizure with abnormal EEG; was not started on anti- epileptic medication. Presentation was notablefor alcohol level of 0.04, possible that seizure was related to alcohol withdrawal. B12 mildly elevated and Folate WNL. Neurology consulted and EEG completed without evidence of seizure - thiamine level in process - Treated with IV thiamine and transitioned to oral thiamine 100 mg daily at discharge ?? Passive Suicidal Ideation Presenting complaint of suicidal ideation. Low acute risk - per collateral at [facility] patient stated she would take all of her pills. Does not have access to medication in the hospital, denies active plan on my interview, denies history of suicide attempts. Evaluated by psychiatry and she is amenable tovoluntary admission. - SENIOR RESEARCH FELLOW olanzapine discontinued due to possible contributions to AMS ?? Hypokalemia Noted to be hypokalemic on admission which was repleted with PO and IV potassium. Level improved. Started on supplemental K 40 meq BID. Continue repletion on discharge. - Will need repeat potassium check with PCP after discharge (or while admitted to psych if prolongedadmission), would aim to check by 2/1 at the latest. Addiction Medicine Consult on 09/02/21: Assessment, Recommendations/Plan: Key Peres is a 46 y.o. old female with a past medical history significant for alcohol use disorder, PTSD, anxiety, memory impairment, TBI who presented to [facility] for SI. ?? Alcohol use disorder, seemingly severe Denies recent use but unable to account for recent BAL at 0.04 last week. In sober living. Memory impairment limits evaluation and history. Given memory impairment, CD tx not currently indicated. May consider additional medication support but will defer at this time. PLTs and MCV WNLs. - added on LFTs - Could consider EtG vs. EtS screening to r/o recent alcohol consumption but these have limitations. Neurology Consult on 09/01/21: IMPRESSION: 46 yo female with history TBI and recent admission at [facility] with new onset seizure, who presents with continuing confusion and poor memory. Currently she is alert and oriented. Exam is otherwise nonfocal. MRI brain was just done at OSH and does not need repeated here. There were no significant abnormalities on the MRI. EEG was also completed at OSH and showed rhythmic right temporal activity. ?? Her ongoing cognitive changes be due to the recent seizure, history of alcohol abuse, prior TBI, andpossibly underlying psychiatric illness. I doubt [employer] infection or subclinical seizures. Given recentextensive work up, I will not order any additional testing at this time. ?? I will repeat the EEG today. If this is abnormal, then I would recommend starting Keppra 500 mg bid.If it is normal, then I would not start a medication. It will be most helpful for her to undergo formal neuropsych evaluation as an outpatient. ?? RECOMMENDATIONS: - EEG to rule out continued seizure activity - Agree with B1, B12, folate studies - Start Keppra 500 bid IF EEG abnormal - outpatient neuropsych testing - Neurology will sign off. ?? Chas Ureña MD 09/01/2021, 1:20 PM Department of Neurology [facility] Medication Ordered/Consults/Labs/Tests Ordered: 09/04/2021: Continue on SENIOR RESEARCH FELLOW Donepezil 10mg qhs, Cymbalta 60mg daily, Melatonin 3mg qhs. Zyprexa was stopped due to possible anticholinergic properties worsening AMS. Increased Gabapentin to 400mg QID for alcohol withdrawal syndrome. Will stop Vistaril when pt is less anxious. Milieu Management: Admit to: NE8 Legal: Voluntary Acuity level :Red (caution - at risk, monitored for safety) Encourage the patient to participate in unit activities. Certification & Risk Assessment The patient needs inpatient psychiatric treatment for diagnostic assessment and treatment of the following symptoms: anxiety and worsening memory. Estimated length of stay is 3-5 days. Anticipated disposition: Unknown pending further stabilization Risk Assessment: self harm: Acutely increased risk due to passive SI and impulsivity due to TBI. assault: Low currently Biopsychosocial Stressors: Difficulty with memory, has not been able to work. Patient Strengths: family/social support, willing to take medications, agreeable to hospitalization,stable housing, has insurance Patient was seen by Dr. Bautista and discussed. Report Completed By: Darya Jane PA-C I have personally performed the assessment and plan for the service on 09/04/2021. I have reviewed and verified the documentation by Latesha Jane PA-C. 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 [id number] ELECTROCARDIOGRAM Routine 09/09/2021 12:27 Results for this TRACING PM [employer] [facility] procedure are i n the results section. POTASSIUM Routine 09/05/2021 8:49 Results for this AM [employer] procedure are i n the results section. BASIC METABOLIC PANEL Routine 09/04/2021 7:19 Res ults for this AM [employer] procedure are i n the results section. documented in this encounter Results ECG 12-Lead Routine (Lab perform) (09/09/2021 12:30 PM [facility] [employer] [facility]) P athologist Signature EKG Completed 09/09/2021 [facility] 3:03 PM [facility] Specimen Anatomical Collection Method / Collection Time Recei sue Time (Source) Location / Volume Laterality Other Specimen Venipuncture 09/09/2021 12:30 2 1:04 Type Butterfly / Unknown PM [employer] [facility] PM [employer] [employer] [facility] Shilpi Gonzalez PA-C LAB_1 Performing Organization Address City/State/ZIP Code Phon e Number [facility] [address] [place] [address] Ecg 12-Lead Routine (MUSE) (09/09/2021 12:27 PM [employer] [facility]) P athologist Signature Ventricular Rate 56 BPM [facility] Atrial Rate 56 BPM [facility] P-R Interval 166 ms [facility] QRS Duration 92 ms [facility] QT 432 ms [facility] QTc 416 ms [facility] P [place] 19 degrees [facility] R [place] -11 degrees MUSE [facility] T [place] 24 degrees [facility]USE [facility] Specimen (Source) Anatomical Collection Method Collection Time Re ceived Time Location / / Volume Laterality 09/09/2021 12:27 PM [facility] [facility] Narrative [facility] - 09/21/2021 12:58 PM [employer] [employer] [facility] Sinus bradycardia Otherwise normal ECG When compared with ECG of 02-SEP-2021 13 :36, Vent. rate has decreased BY ??27 BPM T wave inversion no longer evident in An terior leads QT has shortened Confirmed by Alex Sanford ([id number]) on 12:58:37 PM Procedure Note Alex Sanford MD - 09/21/2021Format ting of this note might be different from the original. Sinus bradycardia Otherwise normal ECG When compared with ECG of 02-SEP-2021 13 :36, Vent. rate has decreased BY 27 BPM T wave inversion no longer evident in An terior leads QT has shortened Confirmed by Alex Sanford ([id number]) on 12:58:37 PM Shilpi Balderasor PA-C EKG Performing Organization Address City/State/ZIP Code Phon e Number [facility] [address] [place] [address] Potassium (09/05/2021 8:49 AM [facility] [employer] [facility]) P athologist Signature Potassium 3.5 3.5 - 5.1 09/05/2021 [facility] mmol/L 9:29 AM [facility] Specimen Anatomical Collection Method / Collection Time Recei sue Time (Source) Location / Volume Laterality Blood Venipuncture / 09/05/2021 8:49 09/05/2021 9:05 Unknown AM [employer] [facility] AM [employer] Darya M Vosters PA-C LAB_1 Performing Organization Address [facility]/ZIP [facility] Phon e Number [address] [phone] (ABNORMAL) Basic Metabolic Panel (09/04/2021 7:19 AM [employer] [facility]) athologist Signature Sodium 140 136 - 145 09/04/2021 [facility] mmol/L 8:18 AM [facility] Potassium 3.9 3.5 - 5.1 09/04/2021 [facility] mmol/L 8:18 AM [facility] Chloride 104 98 - 109 09/04/2021 [facility] mmol/L 8:18 AM [facility] CO2 30 (H) 20 - 29 09/04/2021 [facility] mmol/L 8:18 AM [facility] Anion Gap 6 (L) 7 - 16 09/04/2021 [facility] mmol/L 8:18 AM [facility] Calcium 9.0 8.4 - 10.4 09/04/2021 [facility] mg/dL 8:18 AM [facility] BUN 6 (L) 7 - 26 09/04/2021 [facility] mg/dL 8:18 AM [facility] Creatinine 0.80 0.55 - 09/04/2021 [facility] 1.02 mg/dL 8:18 AM [facility] GFR, Estimated >60 >60 09/04/2021 [facility] mL/min/1.7 8:18 AM [facility] 3m2 Glucose 98 70 - 100 09/04/2021 [facility] mg/dL 8:18 AM [facility] Comment: The given reference range is fo r the fasting state. Non-fasting reference range for glucose is 70 - 180 mg/dL. Specimen Anatomical Collection Method / Collection Time Recei sue Time (Source) Location / Volume Laterality Blood Venipuncture / 09/04/2021 7:19 09/04/2021 7:34 Unknown AM [employer] [facility] AM [employer] Jenifer Mayers APRN, BEE WORKER LAB_1 Performing Organization Address City/[facility]/ZIP Code Phon e Number [address] [phone] documented in this encounter Visit Diagnoses Diagnosis Severe alcohol use disorder (HRC) - Prim fariha Pain Generalized pain Anxiety (HRC) Anxiety state, unspecified Major neurocognitive disorder as late ef fect of traumatic brain injury with behavioral disturbance (HRC) Severe alcohol use disorder (HRC) Major depression (HRC) Major depressive disorder, single episod e, unspecified PTSD (post-traumatic stress disorder) (H [facility]) Posttraumatic stress disorder Migraine without status migrainosus, not intractable, unspecified migraine type Hypertension, unspecified type (HRC) Mild cognitive impairment with memory lo ss Mild cognitive impairment, so stated MDD (major depressive disorder), recurre nt severe, without psychosis (HRC) Major depressive disorder, recurrent epi sode, severe, without mention of psychotic behavior Insomnia, unspecified type Mild cognitive impairment with memory lo ss Mild cognitive impairment, so stated Anxiety (HRC) Anxiety state, unspecified Plan of Care - Emmanuelle Love, [facility] - 09/13/2021 1:15 PM CST [facility] Social Work Discharge Note Admission Date/Time: 09/03/2021 8:33 PM Attending Practitioner: Brandon Murphy MD Disposition: Home with parents Anticipated Discharge Date/Time: 09/16/21 (?) Transportation Arrangements: Parents to transport Discharge Collateral Contact: Collateral Contacts: Family/Friend Family/Friend Contact Name: Alyson Cedeño - Mother Release of Information?: Yes Family/Friend Contact or [phone] Legal Status at Discharge: Voluntary County: [place] Insurance: Medicare & [employer] Shield [facility] CD Assessment Completed: CD Assessment Integrated Treatment Plan: N/A Discharge Safety Risk Assessed: ;Safety Risk assessed. PT denies thoughts to harm self or others. Ptwill be staying with parents upon discharge. Cannot return to Sober house until level of care re-assessed. Discharge Summary: Key Peres is a 46 y.o. female who had been admitted for memory impairment and suicidal ideation from medicine. The patient and was Voluntary status. The patient carries a diagnosis of depression, anxiety, alcohol use disorder and TBI with cognitive impairment. PT had admitted??from sober living??with??SI and concern for worsening memory loss. She was admitted to [facility]08/26 - where she had a witnessed seizure lasting 5 minutes suspected 2/2 alcohol withdrawal. PT started on Naltrexone and appears to be tolerating. MOCA score improvement and appearing more organized in thought. PT anxiety decreasing, denies SI. Pt has scheduled follow-up with AILEEN, behavioral health 09/15 with Rebecca Mcqeuen at 3:15 and Mar Alfaro, primary care on 09/16 at 12:45. Pt will be residing with parents upon discharge. [facility] Plan of Care - Emmanuelle Love LICSW - 09/13/2021 12:55 PM CST [facility] Social Work Progress Note Data: Trim Carpenter met with pt in her room and discussed discharge plan for today. Pt reports she is feeling pretty good for discharge today. Denies thoughts to harm self or others. Reports feeling tired this morning. Pt states being unsure about details, but states she made one little mistake and it landed me in here. Does not currently remember providers and news writer discussed attempting to see if this wasin her record. States her parents will be picking her up this afternoon and wants to shower prior totheir arrival. Legal Status: Vol Collateral Contacts Collateral Contacts: Family/Friend Family/Friend Contact Name: Alyson Cedeño - Mother Release of Information?: Yes Family/Friend Contact or [phone] Action Plans: Pt discharge later today with parents arriving to pick her up this afternoon at approximately 3pm. Plan: Anticipated Discharge Date/Time: 09/16/21 (?) Disposition: Location: [facility] Plan of Care - Rudy Rees RN - 09/13/2021 12:30 PM CST [facility] Plan of Care Note Assessment:??Thought process alteration?? Plan:??Redirect, engage with patient to promote and encourage to have clear, organized, reality based thinking on daily basis prior to discharge.?Encourage group activities and encourage to verbalize feeling. Subjective:?? some how I slept better than other days, yes not taking longer nap during the day help to sleep better during the night I will continue to do that. No pain, no suicidal thoughts, no homicidal thoughts, no hallucinations, Objective:??Patient was sittingin on her during morning med pass, willing to gets up for breakfast, more awake engaged for assessment with clear and organized thoughts. Aware of her discharge plan and time. No concerns at this time. --- End of Report --- [employer] Plan of Care - Anirudh Valente RN - 09/13/2021 6:47 AM CST Problem: Patient Care Overview (Adult) Goal: Plan of Care Review Outcome: Progressing Assessment:Sleep Plan: Pt will sleep > 5 hours Subjective: NA Objective: Patient appeared to sleep throughout the night. No behavior or safety concerns noted. Continue with q 15 minutes safety checks. [facility] [facility] Plan of Care - Jeremy Prescott RN - 09/12/2021 10:59 PM CST [facility] Plan of Care Note Assessment: Disturbed Thought Process Plan: Patient Safety and Reality Based Thinking Subjective: I am trying to stay awake so I sleep better tonight. Objective: Patient is anxious, cooperative and affect is flat. Denies thoughts of self-harm or hallucinations. Patient isolated to room most of the shift and came out periodically for water or talk to news writer about medications. Patient ate 50% of dinner. Reported a BM and was compliant with medications. Patient stated she was anxious at bedtime and given PRN Vistaril. Legal Status: Privilege Level: Safety Observation: q15 minute checks Suicidal Ideation/Homicidal Ideation: Denies Mood: calm Thought Process: relevant; Thought Content: relevant Insight: denies responsibility Delusions: no delusions; Hallucinations: denies hallucinations Behavior: avoids social contact MIAHTAPS: 1 Vital Signs: Patient Vitals for the past 24 hrs: BP Temp Temp src Pulse Resp SpO2 09/12/21 1700 94/63 97.6 ??F (36.4 ??C) Oral 75 18 97 % 09/12/21 0800 124/73 98.2 ??F (36.8 ??C) -- 73 16 99 % Medical issues: Low BP/ encouraged to drink more fluids Medications: Compliant No additional behavioral or safety concerns noted. --- End of Report --- [employer] Plan of Care - Rudy Rees RN - 09/12/2021 10:23 AM CST [facility] Plan of Care Note Assessment: Thought process alteration Plan: Redirect, engage with patient to promote and encourage to have clear, organized, reality basedthinking on daily basis prior to discharge. Encourage group activities and encourage to verbalize feeling. Subjective: no pain, no suicidal thoughts, no homicidal thoughts, no hallucinations, I will try not to sleep during the day to sleep night. Objective: Patient was lying in bed during morning med pass looks flat and depressed avoiding interaction, engaged for assessment with clear and organized thoughts agreed to not to sleep during the dayto sleep longer during the night. denied activities. --- End of Report --- [employer] Plan of Care - Anirudh Valente RN - 09/12/2021 6:37 AM CST Problem: Patient Care Overview (Adult) Goal: Plan of Care Review Outcome: Progressing Assessment:Sleep Plan: Pt will sleep > 5 hours Subjective: I can not sleep without DVD player Objective: Patient appeared to sleep throughout the night. Pt was up at the nursing station after 2330 said can you call the doctor I need something strong for sleep, I can't sleep. Pt was given PRN trazodone and melatonin as ordered at 2353. Pt was having DVD in her room which she was hiding under the blanket it was taken away. About 0300 pt asked for her nurse and told nurse that she want the DVDplayer , that she can not sleep without DVD player. No behavior or safety concerns noted.Continue with q 15 minutes safety checks. [employer] [facility] Plan of Care - Kathrin Neville RN - 09/11/2021 11:58 PM CST Pt was up at the nursing station after 2329 said can you call the doctor I need something strong for sleep, I can't sleep. Pt was given PRN trazodone and melatonin as ordered at 2352. During rounds staff observed that pt was watching movie with the portable DVD player, when staff went to give her medication in her room she was hiding it under the blanket. Inform pt that she need to turn in the DVD player at this time, offer her headphone which she decline. DVD player was removed from pt's room. [employer] Plan of Care - Jon Lockett RN - 09/11/2021 9:55 PM CST [facility] Plan of Care Note Assessment: Mood, behavior, thoughts Plan: *Assess and monitor mood, behaviors, thought process encouraging verbalization of thoughts, feelings, and concerns. Subjective: Can I get something for anxiety? Its about a 6 out of 10. I'm just thinking about what I'm going to be doing the next few days. Objective: Pt noted tense, calm at times, pleasant and cooperative. Vistaril given x1 per pt request. Pt affect blunted/depressed appearing. Pt denied pain, SI,HI,Avh. Pt self isolated to her room other than a few requests at desk. Legal Status: Privilege Level: Safety Observation: q15 minute checks Suicidal Ideation/Homicidal Ideation: See Notes (pt sleeping) Mood: depressed Thought Process: relevant; Thought Content: denies responsibility Insight: judgment not appropriate to situation Delusions: no delusions; Hallucinations: denies hallucinations Behavior: avoids social contact MIAHTAPS: 1 CIWA: COWS: Vital Signs: Patient Vitals for the past 24 hrs: BP Temp Pulse SpO2 09/11/21 0800 116/85 97.4 ??F (36.3 ??C) 62 94 % Medical issues: none this shift Medications: cooperative No additional behavioral or safety concerns noted. --- End of Report --- [facility] Plan of Care - Rudy Rees RN - 09/11/2021 1:15 PM CST [facility] Plan of Care Note Assessment: Thought process alteration Plan: Redirect, engage with patient to promote and encourage to have clear, organized, reality basedthinking on daily basis prior to discharge. Encourage group activities and encourage to verbalize feeling. Subjective: I am feeling just tired, no pain, no suicidal thoughts, no homicidal thoughts, no hallucinations. No I do not want to go OT activities I am tried of activities from previous place was to much activity after activities I just want to be mellow. Objective: Patient seed lying in bed during morning med pass looks flat and depressed avoiding interaction denied activities. Patient seen after lunch for reassessment sitting on her bed playing card, more awake calm and engaged for assessment properly denied symptoms of depression. --- End of Report --- [facility] Plan of Care - Jerrica Villegas LICSW - 09/11/2021 8:21 AM CST [facility] Social Work Progress Note Data: SW reviewed chart, patient's case was discussed in AM treatment team. MD planning to complete a MOCAtoday. SW left for Alyson updating her on plan to repeat MOCA today and then do CPT on Tuesday depending on how patient does on the MOCA. TIANNA will update on Tuesday further. Legal Status: Voluntary Collateral Contacts Family/Friend Contact Release of Information?: Yes Family/Friend Contact Name: Alyson Cedeño - Mother Family/Friend Contact or [phone] Action Plans: Stabilization, coordination of care Plan: Anticipated Discharge Date/Time: 09/16/21 (?) Disposition: Location: [facility] Plan of Care - Lucrecia Lockett OTR/Josue - 09/11/2021 7:11 AM CST [facility] Occupational Therapy Plan of Care Note Group Name Attendance Minutes Topic Movement/Exercise Absent/Refusal Activity Room/Group Life Skills/IM&R Absent/Refusal Clinic Absent/Refusal Daily Group Total: 0 OT Evaluation Minutes: Evaluation: All OT Evaluations are found under Consults - OT Notes. Group Daily Assessment Sensory Items/Activities Offered: Grooming: Affect: Cognitive/Tracking: Social Skills: Work Skills: Investment/Participation: Comments: 1:1 OT Assessment Minutes: 15 Topic: Checking in with patient, Grooming, Group attendance Comments: Patient is approached in her room to check in for the day. She requests and receives grooming supplies and news writer assists with DVD player and choosing a movie. Patient comments that with her TBI it is hard to remember what movie she watched yesterday and sometimes ends up watching the same ones. More social today, good eye contact. States she just does not like groups (been to too many in the past) and is not interested in attending. Groomed appearance, affect KARANL. Lucrecia Lockett OTR/L Sensory Assessment OT Sensory Intervention Time: No charge Patient was seen for SI needs: OT staff are following up with the use of sensory interventions Sensory items/activities receptive and preferred: Weighted equipment Weighted Equipment: blanket Patient report of benefits of preferred sensory items after exploration: Reported improved sleep, Reported was more physically relaxed, Reported was more comfortable Recommendations of further sensory treatment and education: OT staff will continue to evaluate, monitor, and encourage use of sensory interventions throughout the hospital stay and discharge environment According to current staff observation, sensory self-report, and history of behavior the following interventions were offered: Patient was receptive to the following interventions: Assessment and Interpretation of the Sensory Consultation are as follows: Patient Care and Considerations: Recommendations to try when patient has stabilized: Stress/Anxiety/Energy Level Topic: Patient reported anxiety before: Patient reported anxiety after: Patient reported energy before: Patient reported energy after: Patient reported Zone of Regulation before: Patient reported Zone of Regulation after: Patient reported benefits: Patient other reported benefits: Initial Assessment Patient Reported Strengths: Other (see comments) (I guess I'm likeable.) Patient's Curriculum Track Balancing thoughts Patient's Recovery Goals Patient's Recovery Goals: Yes First Short Term Goal Related to Achieving Personal Goal: Manage mental health Goal Status: Set Step 1 in Achieving Goals: Figure out my anxiety. Step 1 Goal Status: Set Step 2 in Achieving Goals: Manage my depression. Step 2 Goal Status: Set Step 3 in Achieving Goals: Get some sleep Step 3 Goal Status: Set Patient's Goals Please refer to patient's recovery goal above: Set OT Treatment Goals 1. Assess and provide education regarding functional skills, identified problem areas, and mental health symptoms. 2. Provide Treatment in above problem areas in a group setting and/or on a 1:1 basis. 3. Provide a safe environment. 4. Encourage daily, consistent participation in OT groups to work on above goals. OT Treatment Plan Patient will attend the following OT Groups: Clinic, Life Skills, Illness Management and Recovery (IM&R), Unit, Grooming and/or Movement/Exercise. Brenda PATTON I have evaluated this patient and reviewed all related documentation. JUMA Weiss/Josue 09/11/2021 3:01 PM [facility] Plan of Care - Ela Hightower RN - 09/11/2021 6:42 AM CST Problem: Patient Care Overview (Adult) Goal: Plan of Care Review Outcome: Progressing [facility] Plan of Care Note Assessment: Sleep Plan: Pt will sleep > 5 hrs. Subjective: NA Objective: Pt appeared to have slept through out the night, no incident. 15 min checks ongoing. --- End of Report --- [facility] Plan of Care - Jon Lockett RN - 09/10/2021 10:37 PM CST [facility] Plan of Care Note Assessment: Mood, behavior, thoughts Plan: Assess and monitor mood, behaviors, thought process encouraging verbalization of thoughts, feelings, and concerns. Subjective: I'm having a spike in my anxiety. Do you know when I'm going home? I really need to gethome. Can I have something for anxiety? Vistaril helped some. But I feel my anxiety coming back again now. I've been thinking about my kids, Will the gabapentin help with it? Objective: Pt pleasant, tense, cooperative, appearing anxious in conversation and distracted/preoccupied. Vistaril given x1. Pt denied psych concerns. Pt self isolated to her room this shift. PRN melatonin given per pt request at Legal Status: Privilege Level: Safety Observation: q15 minute checks Suicidal Ideation/Homicidal Ideation: Denies Mood: anxious, tense Thought Process: linear thought process; Thought Content: poverty of content Insight: insight not appropriate to situation, judgment not appropriate to situation Delusions: no delusions; Hallucinations: denies hallucinations Behavior: avoids social contact MIAHTAPS: 1 CIWA: COWS: Vital Signs: Patient Vitals for the past 24 hrs: BP Temp Temp src Pulse Resp SpO2 09/10/21 2100 -- -- -- (!) 56 -- -- 09/10/21 1600 (!) 152/85 98.5 ??F (36.9 ??C) Oral (!) 57 16 100 % 09/10/21 1200 135/88 -- -- 61 -- -- 09/10/21 0900 112/49 98.1 ??F (36.7 ??C) Skin (!) 56 16 95 % Medical issues: none this shift Medications: cooperative. Vistaril x1, melatonin prn given No additional behavioral or safety concerns noted. --- End of Report --- [facility] Plan of Care - Tammy Cano RN - 09/10/2021 10:34 AM CST [facility] Plan of Care Note Assessment: Altered mood Plan: Assess mood, maintain safety, and provide support. Subjective: No. No pain. I don't think I had any. Pt denied all psych symptoms and pain/discomfort. When asked specifically about had pain she stated listed quote. Objective: Pt was flat and cooperative. She was medication compliant with the exception of her thiamine. Metoprolol was held d/t BP being 112/49 and HR 56. On assessment she was difficult to arouse andwas significantly delayed in her responses. She still remains in her room for most of the shift but was more present on the unit tody. She had no immediate concerns. Legal Status: Voluntary Privilege Level: Red Safety Observation: q15 minute checks Suicidal Ideation/Homicidal Ideation: Denies Mood: anxious Thought Process: linear thought process; Thought Content: poverty of content Insight: insight not appropriate to situation, judgment not appropriate to situation Delusions: no delusions; Hallucinations: denies hallucinations Behavior: avoids social contact, eye contact, hesitant to make, cooperative MIAHTAPS: 1 Vital Signs: Patient Vitals for the past 24 hrs: BP Temp Temp src Pulse Resp SpO2 09/10/21 0900 112/49 98.1 ??F (36.7 ??C) Skin (!) 56 16 95 % 09/09/21 1600 128/80 97.6 ??F (36.4 ??C) Skin 68 16 97 % 09/09/21 1300 103/79 97.9 ??F (36.6 ??C) Skin 66 16 98 % Medical issues: None reported Medications: Took medications No additional behavioral or safety concerns noted. --- End of Report --- [facility] [employer] Plan of Care - Jerrica Villegas LICSW - 09/10/2021 8:06 AM CST [facility] Social Work Progress Note Data: SW reviewed chart, patient's case was discussed in AM treatment team. Stabilizing, plan to repeat MOCA tomorrow. Unclear dispo, memory impairment seems significant and unclear if patient would be able to live independently. Legal Status: Voluntary Collateral Contacts Family/Friend Contact Release of Information?: Yes Family/Friend Contact Name: Alyson Padgett Mother Family/Friend Contact or [phone] Action Plans: Stabilization, coordination of care Plan: Anticipated Discharge Date/Time: 09/16/21 (?) Disposition: Location: [facility] Plan of Care - Lucrecia Lockett OTR/Josue - 09/10/2021 7:09 AM CST [facility] Occupational Therapy Plan of Care Note Group Name Attendance Minutes Topic Movement/Exercise Absent/Refusal Activity Room/Group Life Skills/IM&R Absent/Refusal Clinic Absent/Refusal Daily Group Total: 0 OT Evaluation Minutes: Evaluation: All OT Evaluations are found under Consults - OT Notes. Group Daily Assessment Sensory Items/Activities Offered: Grooming: Affect: Cognitive/Tracking: Social Skills: Work Skills: Investment/Participation: Comments: 1:1 OT Assessment Minutes: Topic: Comments: Sensory Assessment According to current staff observation, sensory self-report, and history of behavior the following interventions were offered: Patient was receptive to the following interventions: Assessment and Interpretation of the Sensory Consultation are as follows: Patient Care and Considerations: Recommendations to try when patient has stabilized: Stress/Anxiety/Energy Level Topic: Patient reported anxiety before: Patient reported anxiety after: Patient reported energy before: Patient reported energy after: Patient reported Zone of Regulation before: Patient reported Zone of Regulation after: Patient reported benefits: Patient other reported benefits: Initial Assessment Patient Reported Strengths: Other (see comments) (I guess I'm likeable.) Patient's Curriculum Track Balancing thoughts Patient's Recovery Goals Patient's Recovery Goals: Yes First Short Term Goal Related to Achieving Personal Goal: Manage mental health Goal Status: Set Step 1 in Achieving Goals: Figure out my anxiety. Step 1 Goal Status: Set Step 2 in Achieving Goals: Manage my depression. Step 2 Goal Status: Set Step 3 in Achieving Goals: Get some sleep Step 3 Goal Status: Set Patient's Goals Please refer to patient's recovery goal above: Set OT Treatment Goals 1. Assess and provide education regarding functional skills, identified problem areas, and mental health symptoms. 2. Provide Treatment in above problem areas in a group setting and/or on a 1:1 basis. 3. Provide a safe environment. 4. Encourage daily, consistent participation in OT groups to work on above goals. OT Treatment Plan Patient will attend the following OT Groups: Clinic, Life Skills, Illness Management and Recovery (IM&R), Unit, Grooming and/or Movement/Exercise. Brenda PATTON I have evaluated this patient and reviewed all related documentation. JUMA Weiss/Josue 09/10/2021 3:01 PM [facility] [employer] Plan of Care - Ela Hightower RN - 09/10/2021 6:47 AM CST Problem: Patient Care Overview (Adult) Goal: Plan of Care Review Outcome: Progressing [facility] Plan of Care Note Assessment: Sleep Plan: Pt will sleep > 5 hrs. Subjective: NA Objective: Pt appeared to have slept through out the night, no incident. 15 min checks ongoing. --- End of Report --- [facility] [employer] Plan of Care - Roxana Lopez RN - 09/09/2021 5:28 PM CST Problem: Patient Care Overview (Adult) Goal: Plan of Care Review Outcome: Progressing Problem: Thought Process Alteration (Adult) Goal: Identify Related Risk Factors and Signs and Symptoms Outcome: Progressing [facility] Plan of Care Note Assessment: Thought process, mood and behavior Plan: Redirect as needed for impaired thoughts, monitor for anxiety and offer PRN med as needed. Subjective: Why is it hurt so much? It's the medication that hurts a lot. Objective: Pt was seen watching movie in her room, said she was feeling a little anxious and requested some PRN med. PRN Vistaril given at 1603. Pt showered, seen playing cards in her room. Accepted Thiamin vit IM to right deltoid and said it hurts and wanted to know if she could take it by mouth. Icepack applied. Pt was compliant with all medications, requested another Vistaril at HS and then c/o having a migraine and said she needed a stronger dose of sleeping med. Declined HS IM Thiamin saying she wanted to skip it tonight. PRN Excedrin and PRN Melatonin given at 2300. Legal Status: Privilege Level: Safety Observation: q15 minute checks Suicidal Ideation/Homicidal Ideation: Denies Mood: anxious Thought Process: relevant; Thought Content: poverty of content Insight: insight not appropriate to situation Delusions: no delusions; Hallucinations: denies hallucinations Behavior: avoids social contact, guarded, cooperative MIAHTAPS: 1 Vital Signs: Patient Vitals for the past 24 hrs: BP Temp Temp src Pulse Resp SpO2 09/09/21 1600 128/80 97.6 ??F (36.4 ??C) Skin 68 16 97 % 09/09/21 1300 103/79 97.9 ??F (36.6 ??C) Skin 66 16 98 % 09/09/21 0836 92/57 97.8 ??F (36.6 ??C) Oral (!) 57 20 98 % 09/09/21 0800 94/59 97.8 ??F (36.6 ??C) Oral (!) 43 20 95 % No additional behavioral or safety concerns noted. --- End of Report --- [facility] Plan of Care - Venus Winston RN - 09/09/2021 11:23 AM CST [facility] Plan of Care Note Assessment: Anxious behavior/chills Plan: patient will remain safe and chills will be monitored and md will be informed and patient willbe given prn vistaril for anxiety. Subjective: I really have the chills. I slept well last night but I feel anxious and I had a bowel movement this morning. Can I have some warm blankets. Objective: Up in her roomand patient is preoccupied and vital signs checked and bp was low twice andmd informed and metoprolol not given. Patient is resting in her bed and complains of chills and given warm blanket. Patient is isolative to room and received thiamine shot and is using nicoderm products. Patient is not attending groups and is isolative to her room Legal Status: voluntary Privilege Level: red Safety Observation: q15 minute checks Suicidal Ideation/Homicidal Ideation: Denies Mood: anxious Thought Process: relevant; Thought Content: poverty of content Insight: judgment not appropriate to situation Delusions: no delusions; Hallucinations: denies hallucinations Behavior: cooperative MIAHTAPS: 1 Vital Signs: Patient Vitals for the past 24 hrs: BP Temp Temp src Pulse Resp SpO2 09/09/21 0836 92/57 97.8 ??F (36.6 ??C) Oral (!) 57 20 98 % 09/09/21 0800 94/59 97.8 ??F (36.6 ??C) Oral (!) 43 20 95 % 09/08/21 1900 127/86 -- -- 60 -- -- 09/08/21 1600 (!) 142/87 97.9 ??F (36.6 ??C) Skin (!) 51 16 99 % Medical issues: chills and lower blood pressure and pulse and md notified Medications: cooperative with am medications and given prn vistaril. No additional behavioral or safety concerns noted. --- End of Report --- [facility] Plan of Care - Jerrica Villegas LICSW - 09/09/2021 8:06 AM CST [facility] Social Work Progress Note Data: SW reviewed chart, patient's case was discussed in AM treatment team. Patient stabilizing. SW met with patient for check in. She notes that she is not sure how she feels today but doesn't have a headache. Voices concerns about the shot that she is getting and wonders if she is having menopause as she hasn't had her period in months and wonders if that is contributing to her memory/anxiety/headaches. SW will relay to MD. Patient denies any needs for SW at this time. SW called and spoke with Alyson and Chas, they ntoe that call went well, that patient didn't appear overly confused and did remember telling her daughter that she wanted her to move out but not until patient was out of the hospital. Alyson notes that patient did seem anxious at first but Chas was ableto make her laugh, and she seemed upbeat and hopeful about discharge. Chas notes that patient and her daughter do not get a long and mention various issues that they have had in the past since the daughter was living with patient. Note that they will reach out to patient's daughter to see if she is still planning to move out. SW will talk with them further tomorrow. Legal Status: Voluntary Collateral Contacts Family/Friend Contact Release of Information?: Yes Family/Friend Contact Name: Alyson Cedeño - Mother Family/Friend Contact or [phone] Action Plans: Stabilization, coordination of care Plan: Anticipated Discharge Date/Time: 09/16/21 (?) Disposition: Location: [facility] Plan of Care - Dianelys Randhawa OTR/Jsoue - 09/09/2021 7:07 AM CST [facility] Occupational Therapy Plan of Care Note Group Name Attendance Minutes Topic Movement/Exercise Absent/Refusal Activity Room/Group Life Skills/IM&R Absent/Refusal Clinic Absent/Refusal Daily Group Total: 0 OT Evaluation Minutes: Evaluation: All OT Evaluations are found under Consults - OT Notes. Group Daily Assessment Sensory Items/Activities Offered: Grooming: Affect: Cognitive/Tracking: Social Skills: Work Skills: Investment/Participation: Comments: 1:1 OT Assessment Minutes: 15 Topic: Checking in with patient Comments: Patient approached in her room lying in bed. Trim Carpenter offers aromatherapy and explains benefits related to headache. Trim Carpenter following up on nursing report in team that patient had reported migraines and an increase in anxiety as a result. Patient is accepting [facility] but states I don't have a headache right now, and declines aroma patch. Patient appears confused and mostly responds I don't know, to news writer's questions. Brenda PATTON, Dianelys Randhawa, OTR/L. Sensory Assessment OT Sensory Intervention Time: No charge Patient was seen for SI needs: OT staff identified potential sensory need Sensory items/activities offered: Aromatherapy (Patch and cottonball offered) Aromatherapy: Lemon, Lavender Sensory items/activities receptive and preferred: Aromatherapy (on cotton ball) Aromatherapy: Lemon, Lavender Recommendations of further sensory treatment and education: OT staff will continue to evaluate, monitor, and encourage use of sensory interventions throughout the hospital stay and discharge environment Trim Carpenter followed up on weighted blanket that pt has checked out. Pt reports it has been beneficial. Declined offer to use it at the time, but confirmed she would like to keep it in her possession for now. Dianelys Randhawa OTR/L According to current staff observation, sensory self-report, and history of behavior the following interventions were offered: Patient was receptive to the following interventions: Assessment and Interpretation of the Sensory Consultation are as follows: Patient Care and Considerations: Recommendations to try when patient has stabilized: Stress/Anxiety/Energy Level Topic: Patient reported anxiety before: Patient reported anxiety after: Patient reported energy before: Patient reported energy after: Patient reported Zone of Regulation before: Patient reported Zone of Regulation after: Patient reported benefits: Patient other reported benefits: Initial Assessment Patient Reported Strengths: Other (see comments) (I guess I'm likeable.) Patient's Curriculum Track Balancing thoughts Patient's Recovery Goals Patient's Recovery Goals: Yes First Short Term Goal Related to Achieving Personal Goal: Manage mental health Goal Status: Set Step 1 in Achieving Goals: Figure out my anxiety. Step 1 Goal Status: Set Step 2 in Achieving Goals: Manage my depression. Step 2 Goal Status: Set Step 3 in Achieving Goals: Get some sleep Step 3 Goal Status: Set Patient's Goals Please refer to patient's recovery goal above: Set OT Treatment Goals 1. Assess and provide education regarding functional skills, identified problem areas, and mental health symptoms. 2. Provide Treatment in above problem areas in a group setting and/or on a 1:1 basis. 3. Provide a safe environment. 4. Encourage daily, consistent participation in OT groups to work on above goals. OT Treatment Plan Patient will attend the following OT Groups: Clinic, Life Skills, Illness Management and Recovery (IM&R), Unit, Grooming and/or Movement/Exercise. Brenda PATTON I have evaluated this patient and reviewed all related documentation. Dianelys Randhawa OTR/L 09/09/2021 2:39 PM [facility] [employer] Plan of Care - Ela Hightower RN - 09/09/2021 6:42 AM CST Problem: Patient Care Overview (Adult) Goal: Plan of Care Review Outcome: Progressing [facility] Plan of Care Note Assessment: Sleep Plan: Pt will sleep > 5 hrs. Subjective: NA Objective: Pt c/o of anxiety and difficulty staying asleep. PRN tylenol 650 mg and melatonin 6 mg administered at 0010 for Pt appeared to have slept throughout the rest of the night, no incident. 15 min checks ongoing. --- End of Report --- [facility] [employer] Plan of Care - Faizan Jo RN - 09/08/2021 5:11 PM CST [facility] Plan of Care Note Assessment: Mood disturbances Plan: Continue to monitor mood and behaviors. Ensure safety. Subjective: My migraines are getting worse and I think it is making my anxiety worse Objective: Pt was in her room on approach. Polite, pleasant and cooperative. Mostly isolative to room but will intermittently come out to make needs known. She is c/o migraines and anxiety--Received Imitrex and hydroxyzine. Continues Reports that she slept well last night. BP stabilizing 142/87. Receiving Thiamine injections. Syringe for giving thiamine should be kept in Fridge but vial room temperature per pharmacy. [facility] Plan of Care - Venus Winston RN - 09/08/2021 11:38 AM CST [facility] Plan of Care Note Assessment: Anxious behavior/TBI Plan: Patient will reduce anxiety and will be monitored for confusion and isolation will be assessedand patient will be encouraged to go to groups. Subjective: I am feeling anxious can I get a hydroxycyzine Objective: Up in her room and denies medical concerns and admits she feel anxious and would like some vistaril. Patient is isolative to her room and accepts all scheduled medications and denies side effects or pain. Patient is denying cough or shortness of breath or fever or sore throat. Legal Status: Privilege Level: red Safety Observation: q15 minute checks Suicidal Ideation/Homicidal Ideation: Denies Mood: anxious Thought Process: relevant; Thought Content: relevant Insight: judgment not appropriate to situation Delusions: no delusions; Hallucinations: denies hallucinations Behavior: cooperative MIAHTAPS: 1 Vital Signs: Patient Vitals for the past 24 hrs: BP Temp Temp src Pulse Resp SpO2 Height Weight 09/08/21 0855 126/72 -- -- 64 -- -- -- -- 09/08/21 0800 126/72 97.9 ??F (36.6 ??C) Skin 64 16 96 % 5' 2 (1.575 m) 102.2 kg (225 lb 3.2 oz) 09/07/21 2017 (!) 142/82 -- -- -- -- -- -- -- 09/07/21 1600 (!) 149/98 98.3 ??F (36.8 ??C) Skin 71 16 98 % -- -- Medical issues: denies medical concerns Medications: cooperative and received prn vistaril. No additional behavioral or safety concerns noted. --- End of Report --- [employer] Plan of Care - Jerrica Villegas, [facility] - 09/08/2021 8:11 AM CST [facility] Social Work Progress Note Data: SW reviewed chart, patient's case was discussed in AM treatment team. Patient stabilizing, memory appears a bit improved from late last week. SW met with patient for check in. Patient states that she is feeling better, that she is less anxious. Patient talks about remembering SW from yesterday but does not remember conversation. Patient admits that her memory is worse than previously, and agrees to be in the hospital a couple more days while her anxiety and migraines are worked on. Patient states that she does not feel that she belongs here in the hospital and that she should be on a medical floor. SW notes that team does treat anxiety, and that if she is uncomfortable outside of her room she can stay in her room. Patient agreeable to this. Patient states that she does have her own home and hopes to go there at discharge. SW called and spoke with patient's parents Alyson and Chas. Provided update and ongoing concerns about memory issues. Parents will call and speak with patient and will talk with SW further tomorrow. Patient is not allowed to stay with them, this is something that has been addressed in the past with patient as she has requested to live with them. Discussed plan to review medications and continue to treat anxiety and hopefully memory concerns. Legal Status: Voluntary Collateral Contacts Family/Friend Contact Release of Information?: Yes Family/Friend Contact Name: Alyson Cedeño - Mother Family/Friend Contact or [phone] Action Plans: Stabilization, coordination of care Plan: Anticipated Discharge Date/Time: 09/16/21 (?) Disposition: Location: [facility] [facility] Plan of Care - Lucrecia Lockett OTR/Josue - 09/08/2021 7:05 AM CST [facility] Occupational Therapy Plan of Care Note Group Name Attendance Minutes Topic Movement/Exercise Absent/Refusal Activity Room/Group Life Skills/IM&R Absent/Refusal Clinic Absent/Refusal Daily Group Total: 0 OT Evaluation Minutes: Evaluation: All OT Evaluations are found under Consults - OT Notes. Group Daily Assessment Sensory Items/Activities Offered: Grooming: Affect: Cognitive/Tracking: Social Skills: Work Skills: Investment/Participation: Comments: 1:1 OT Assessment Minutes: Topic: Comments: Sensory Assessment According to current staff observation, sensory self-report, and history of behavior the following interventions were offered: Patient was receptive to the following interventions: Assessment and Interpretation of the Sensory Consultation are as follows: Patient Care and Considerations: Recommendations to try when patient has stabilized: Stress/Anxiety/Energy Level Topic: Patient reported anxiety before: Patient reported anxiety after: Patient reported energy before: Patient reported energy after: Patient reported Zone of Regulation before: Patient reported Zone of Regulation after: Patient reported benefits: Patient other reported benefits: Initial Assessment Patient Reported Strengths: Other (see comments) (I guess I'm likeable.) Patient's Curriculum Track Balancing thoughts Patient's Recovery Goals Patient's Recovery Goals: Yes First Short Term Goal Related to Achieving Personal Goal: Manage mental health Goal Status: Set Step 1 in Achieving Goals: Figure out my anxiety. Step 1 Goal Status: Set Step 2 in Achieving Goals: Manage my depression. Step 2 Goal Status: Set Step 3 in Achieving Goals: Get some sleep Step 3 Goal Status: Set Patient's Goals Please refer to patient's recovery goal above: Set OT Treatment Goals 1. Assess and provide education regarding functional skills, identified problem areas, and mental health symptoms. 2. Provide Treatment in above problem areas in a group setting and/or on a 1:1 basis. 3. Provide a safe environment. 4. Encourage daily, consistent participation in OT groups to work on above goals. OT Treatment Plan Patient will attend the following OT Groups: Clinic, Life Skills, Illness Management and Recovery (IM&R), Unit, Grooming and/or Movement/Exercise. Brenda PATTON I have evaluated this patient and reviewed all related documentation. JUMA Weiss/Josue 09/08/2021 3:06 PM [employer] Plan of Care - Lilly Pulido RN - 09/08/2021 6:11 AM CST Problem: Patient Care Overview (Adult) Goal: Plan of Care Review Outcome: Progressing [facility] Plan of Care Note Assessment: Sleep Plan: Pt will sleep > 5 hrs. Subjective: NA Objective: Pt slept through the night with no incident,. Remained in room all shift. 15 min checks ongoing. --- End of Report --- [employer] Plan of Care - Faizan Jo RN - 09/07/2021 4:14 PM CST [facility] Plan of Care Note Assessment: Mood disturbances Plan: Continue to monitor mood and behaviors. Ensure safety. Subjective: It now beginning to make sense---I have not had my periods for 3 months. I think it explains the high anxiety and worsening migraines Objective: Intermittently visible on the unit to make needs known. Polite, pleasant and cooperative.Endorses anxiety. Asked why she came here, states I can't remember anything--I have a TBI. Asks Wr when she can have her anxiety meds I need them the most to help me sleep--so I can wait if that means that if I get it now then I can't have it later. Pt was assured by Wr that he will review the meds and evaluate accordingly. BP 148/99 and f/u 142/82--To restart metoprolol. Received PRN Olanzapine for sleep and anxiety. [employer] Plan of Care - Tammy Cano RN - 09/07/2021 10:57 AM CST [facility] Plan of Care Note Assessment: Altered mood Plan: Assess thought process, maintain safety, and provide support. Subjective: I don't know. Pt denied all psych symptoms and depression. When asked about anxiety specifically she said listed quote. Objective: Pt was calm, flat, and cooperative. She was medication compliant. During assessment she was delayed, brief, and sometimes mute. Later in the shift she reported to that she had a migraine.When news writer approached with pain medications she was comfortably asleep. She remained in her room for most of the shift. She had no immediate concerns. Legal Status: Voluntary Privilege Level: Red Safety Observation: q15 minute checks Suicidal Ideation/Homicidal Ideation: Denies Mood: calm Thought Process: relevant; Thought Content: relevant Insight: judgment not appropriate to situation, insight not appropriate to situation Delusions: no delusions; Hallucinations: denies hallucinations Behavior: avoids social contact, eye contact, hesitant to make, cooperative MIAHTAPS: 0 Vital Signs: Patient Vitals for the past 24 hrs: BP Temp Temp src Pulse Resp SpO2 09/07/21 0900 (!) 145/95 98.2 ??F (36.8 ??C) Skin 82 18 95 % 09/06/21 1700 (!) 146/78 97.6 ??F (36.4 ??C) Oral (!) 132 16 98 % Medical issues: None reported Medications: Took medications No additional behavioral or safety concerns noted. --- End of Report --- [employer] Plan of Care - Jerrica Villegas LICSW - 09/07/2021 8:13 AM CST [facility] Social Work Progress Note Data: SW reviewed chart, patient's case was discussed in AM treatment team. Patient stabilizing, team awaiting to see if anxiety/memory issues clear. SW met with patient with PA for check in. She appears intermittently anxious throughout assessment. Patient states that she is anxious, didn't sleep well and has a migraine. Patient reports struggling to remember what happened yesterday and asks team to talk with her about where she was [employer], as she does not remember. Team notes that it is thought that patient was using alcohol and this likely is whatwas causing her symptoms. Patient denies remembering drinking alcohol. Patient asks multiple times about discharge but cannot state where she would go. Team asks that she stay for a few more days to work on the medications for her anxiety and her memory. Patient agreeable. Legal Status: Voluntary Collateral Contacts Family/Friend Contact Release of Information?: Yes Family/Friend Contact Name: Alyson Cedeño - Mother Family/Friend Contact or [phone] Action Plans: Stabilization, coordination of care Plan: Anticipated Discharge Date/Time: 09/09/21 Disposition: Location: [facility] Plan of Care - Lucrecia Lockett OTR/Josue - 09/07/2021 7:06 AM CST [facility] Occupational Therapy Plan of Care Note Group Name Attendance Minutes Topic Movement/Exercise Absent/Refusal Activity Room/Group Life Skills/IM&R Absent/Refusal Clinic Absent/Refusal Daily Group Total: 0 OT Evaluation Minutes: Evaluation: All OT Evaluations are found under Consults - OT Notes. Group Daily Assessment Sensory Items/Activities Offered: Grooming: Affect: Cognitive/Tracking: Social Skills: Work Skills: Investment/Participation: Comments: 1:1 OT Assessment Minutes: Topic: Comments: Sensory Assessment OT Sensory Intervention Time: 15 minutes Patient was seen for SI needs: OT staff identified potential sensory need Sensory items/activities offered: Music Device Music device: Bluetooth headphones Sensory items/activities receptive and preferred: Music Device Music device: Bluetooth headphones Preferred music: Mic Tenorio Recommendations of further sensory treatment and education: OT staff will continue to evaluate, monitor, and encourage use of sensory interventions throughout the hospital stay and discharge environment According to current staff observation, sensory self-report, and history of behavior the following interventions were offered: Patient was receptive to the following interventions: Assessment and Interpretation of the Sensory Consultation are as follows: Patient Care and Considerations: Recommendations to try when patient has stabilized: Stress/Anxiety/Energy Level Topic: Patient reported anxiety before: Patient reported anxiety after: Patient reported energy before: Patient reported energy after: Patient reported Zone of Regulation before: Patient reported Zone of Regulation after: Patient reported benefits: Patient other reported benefits: Initial Assessment Patient Reported Strengths: Other (see comments) (I guess I'm likeable.) Patient's Curriculum Track Balancing thoughts Patient's Recovery Goals Patient's Recovery Goals: Yes First Short Term Goal Related to Achieving Personal Goal: Manage mental health Goal Status: Set Step 1 in Achieving Goals: Figure out my anxiety. Step 1 Goal Status: Set Step 2 in Achieving Goals: Manage my depression. Step 2 Goal Status: Set Step 3 in Achieving Goals: Get some sleep Step 3 Goal Status: Set Patient's Goals Please refer to patient's recovery goal above: Set OT Treatment Goals 1. Assess and provide education regarding functional skills, identified problem areas, and mental health symptoms. 2. Provide Treatment in above problem areas in a group setting and/or on a 1:1 basis. 3. Provide a safe environment. 4. Encourage daily, consistent participation in OT groups to work on above goals. OT Treatment Plan Patient will attend the following OT Groups: Clinic, Life Skills, Illness Management and Recovery (IM&R), Unit, Grooming and/or Movement/Exercise. Brenda PATTON I have evaluated this patient and reviewed all related documentation. JUMA Weiss/Josue 09/07/2021 3:07 PM [employer] Plan of Care - Ela Hightower RN - 09/07/2021 6:31 AM CST Problem: Patient Care Overview (Adult) Goal: Plan of Care Review Outcome: Progressing [facility] Plan of Care Note Assessment: Sleep Plan: Pt will sleep > 5 hrs. Subjective: NA Objective: Pt appeared to have slept through out the night. PRN tylenol 650 mg administered at at 0043 for migraine- pain 03/17. No other concerns.15 min checks ongoing. --- End of Report --- [employer] Plan of Care - Mar Mcginnis RN - 09/06/2021 9:55 PM CST Problem: Thought Process Alteration (Adult) Goal: Improved Thought Process Outcome: Progressing [facility] Plan of Care Note Assessment: mood Plan: Continue to monitor mood and behaviors. Ensure safety. Encourage verbalization of thoughts, feelings and concerns. Provide education regarding illness, medications and positive coping skills. Subjective: Patient has been in her room most of the evening. She watched a movie on the DVD player.Reports she is having less anxiety. She has been pleasant and appropriate. Tool prn vistaril x 1 foranxiety. Took prn melatonin to help with sleep. Objective: Safety Observation: q15 minute checks Suicidal Ideation/Homicidal Ideation: Denies Mood: anxious Thought Process: relevant; Thought Content: relevant Insight: insight not appropriate to situation Delusions: no delusions; Hallucinations: denies hallucinations Behavior: avoids social contact MIAHTAPS: 0 Vital Signs: Patient Vitals for the past 24 hrs: BP Temp Temp src Pulse Resp SpO2 09/06/21 1700 (!) 146/78 97.6 ??F (36.4 ??C) Oral (!) 132 16 98 % 09/06/21 0900 131/66 98 ??F (36.7 ??C) -- 71 16 99 % --- End of Report --- [employer] Plan of Care - Tammy Cano RN - 09/06/2021 8:39 AM CST [facility] Plan of Care Note Assessment: Altered mood Plan: Assess mood, maintain safety, and provide support. Subjective: You don't get it. I don't belong on this floor. Pt denied all psych symptoms with the exception of anxiety. She also denied pain/discomfort. She voiced concern about being in mental health. She said she was unable to explain why because she didn't know how to word it but stated listed quote multiple times. Objective: Pt was flat, demanding, and cooperative. She was medication compliant and frequently asked for PRN vistaril. Trim Carpenter educated pt on various coping skills to utilize when PRNs weren't available. She was not accepting of this and would demand vistaril. Trim Carpenter encouraged her to get onto the unit and she refused stating, I will never go out there. I am staying right here. She did agree to attempt to come to the nursing station to make requests rather than waiting for staff to come to her room. Safety Observation: q15 minute checks Suicidal Ideation/Homicidal Ideation: Denies Mood: calm Thought Process: linear thought process; Thought Content: denies responsibility Insight: judgment not appropriate to situation, insight not appropriate to situation, inappropriately focused on discharge Delusions: no delusions; Hallucinations: denies hallucinations Behavior: avoids social contact, guarded, asks for medication frequently, cooperative MIAHTAPS: 1 Vital Signs: Patient Vitals for the past 24 hrs: BP Temp Temp src Pulse Resp SpO2 09/05/21 1600 129/78 98.4 ??F (36.9 ??C) Skin 89 16 96 % 09/05/21 0900 135/51 98 ??F (36.7 ??C) Skin 72 16 94 % Medical issues: None reported Medications: Took medications No additional behavioral or safety concerns noted. --- End of Report --- [facility] Plan of Care - Mar Mcginnis RN - 09/06/2021 5:02 AM CST Problem: Patient Care Overview (Adult) Goal: Plan of Care Review Outcome: [facility] Plan of Care Note Assessment: mood Plan: .patient will sleep > 5 hours Subjective: NA Objective: Patient received tylenol at 0112 for a headache with tolerable relief noted. Pt appeared to have slept through out the night, no incident. 15 min checks ongoing. --- End of Report --- [facility] Plan of Care - Mar Mcginnis RN - 09/05/2021 10:22 PM CST Problem: Thought Process Alteration (Adult) Goal: Improved Thought Process Outcome: [facility] Plan of Care Note Assessment: mood Plan: Continue to monitor mood and behaviors. Ensure safety. Encourage verbalization of thoughts, feelings and concerns. Provide education regarding illness, medications and positive coping skills. Subjective: Patient has been in her room most of the evening. She has been watching a movie on the DVD player. She is cooperative with her medications. Requested prn vistaril for anxiety and prn melatonin for sleep. Appears less anxious and less irritable this evening. Objective: Safety Observation: q15 minute checks Suicidal Ideation/Homicidal Ideation: Denies Mood: anxious Thought Process: linear thought process; Thought Content: denies responsibility Insight: insight not appropriate to situation Delusions: no delusions; Hallucinations: denies hallucinations Behavior: avoids social contact MIAHTAPS: 1 Vital Signs: Patient Vitals for the past 24 hrs: BP Temp Temp src Pulse Resp SpO2 09/05/21 1600 129/78 98.4 ??F (36.9 ??C) Skin 89 16 96 % 09/05/21 0900 135/51 98 ??F (36.7 ??C) Skin 72 16 94 % 09/04/21 1900 (!) 148/90 98.1 ??F (36.7 ??C) Oral 94 18 100 % --- End of Report --- [facility] Plan of Care - Tammy Cano RN - 09/05/2021 9:47 AM CST [facility] Plan of Care Note Assessment: Altered mood Plan: Assess mood, maintain safety, and provide support. Subjective: How do I know if I am good or not at 8am? Pt denied HI/SI, pain/discomfort, and depression. She endorsed crippling and life altering anxiety. Objective: Pt was calm, demanding, and cooperative. She was medication compliant. She requested PRN vistaril but when approached with medication she was asleep. On assessment she was flat, delayed, andbrief. She made multiple requests and became demanding when told that it would take a minute to fulfill all her requests. She frequently was making demands during 15 minute checks and was encouraged tocome out on to the unit to make her needs known. She was not accepting of this. Her only concerns was returning back to medicine. Legal Status: None Privilege Level: Red Safety Observation: q15 minute checks Suicidal Ideation/Homicidal Ideation: Denies Mood: calm Thought Process: linear thought process; Thought Content: denies responsibility Insight: insight not appropriate to situation, judgment not appropriate to situation Delusions: no delusions; Hallucinations: denies hallucinations Behavior: avoids social contact, eye contact, intense, guarded, demanding, cooperative MIAHTAPS: 1 Vital Signs: Patient Vitals for the past 24 hrs: BP Temp Temp src Pulse Resp SpO2 09/05/21 0900 135/51 98 ??F (36.7 ??C) Skin 72 16 94 % 09/04/21 1900 (!) 148/90 98.1 ??F (36.7 ??C) Oral 94 18 100 % Medical issues: TBI Medications: Took medications No additional behavioral or safety concerns noted. --- End of Report --- [facility] Plan of Care - Ela Hightower RN - 09/05/2021 5:25 AM CST Problem: Patient Care Overview (Adult) Goal: Plan of Care Review Outcome: [facility] Plan of Care Note Assessment: Sleep Plan: Pt will sleep > 5 hrs. Subjective: NA Objective: Pt appeared to have slept through out the night. PRN Tylenol 650 mg was administered at 0307 for migraine. No other concerns. 15 min checks ongoing. --- End of Report --- [facility] Plan of Care - Mar Mcginnis RN - 09/04/2021 11:15 PM CST Problem: Thought Process Alteration (Adult) Goal: Improved Thought Process Outcome: Progressing [facility] Plan of Care Note Assessment: mood Plan: Continue to monitor mood and behaviors. Ensure safety. Encourage verbalization of thoughts, feelings and concerns. Provide education regarding illness, medications and positive coping skills. Subjective: Patient has been isolative to her room. She asks to go back to the main hospital. Statesshe doesn't need to be here and that she is not crazy. She states she is anxious and has memory issues. Received prn vistaril x 2. Received prn melatonin for sleep. Objective: Safety Observation: q15 minute checks Suicidal Ideation/Homicidal Ideation: Denies Mood: anxious Thought Process: relevant; Thought Content: denies responsibility Insight: judgment not appropriate to situation, insight not appropriate to situation Delusions: no delusions; Hallucinations: denies hallucinations Behavior: demanding MIAHTAPS: 1 Vital Signs: Patient Vitals for the past 24 hrs: BP Temp Temp src Pulse Resp SpO2 09/04/21 1900 (!) 148/90 98.1 ??F (36.7 ??C) Oral 94 18 100 % 09/04/21 0900 108/50 98.3 ??F (36.8 ??C) Oral 72 16 95 % --- End of Report --- [facility] Plan of Care - Tammy Cano RN - 09/04/2021 2:25 PM CST [facility] Plan of Care Note Assessment: Altered thought process Plan: Assess thought process, maintain safety, and provide support. Subjective: I can't remember what I took but I need that pill for my anxiety. Pt denied HI/SI, pain/discomfort, and depression. She endorsed anxiety and stated listed quote. Objective: Pt was anxious, tense, and cooperative. She was medication compliant and received PRN vistaril. She appeared confused and often was unsure how to answer assessment questions. She remained inthe room for most of the shift. She frequently requested ice water and would hand it back saying there was something in it. She had no immediate concerns. Legal Status: Voluntary Privilege Level: Red Safety Observation: q15 minute checks Suicidal Ideation/Homicidal Ideation: Denies Mood: anxious Thought Process: linear thought process; Thought Content: denies responsibility Insight: insight not appropriate to situation, judgment not appropriate to situation Delusions: no delusions; Hallucinations: denies hallucinations Behavior: avoids social contact, eye contact, hesitant to make, cooperative MIAHTAPS: 2 Vital Signs: Patient Vitals for the past 24 hrs: BP Temp Temp src Pulse Resp SpO2 09/04/21 0900 108/50 98.3 ??F (36.8 ??C) Oral 72 16 95 % 09/03/21 2300 132/88 -- -- 98 -- -- 09/03/21 2130 (!) 155/100 98.7 ??F (37.1 ??C) Skin (!) 114 18 -- Medical issues: None reported Medications: Took medications No additional behavioral or safety concerns noted. --- End of Report --- [facility] [facility] Initial Assessments - Jerrica Villegas, PHYSICAL THERAPY AIDE - 09/04/2021 9:11 AM [employer] [facility] Social Work Initial Assessment Admission Date/Time: 09/03/2021 8:33 PM Age: 46 y.o. Attending Practitioner: Darya Jane PA-C County: [place] Admitting Diagnosis: Encounter Diagnoses Name Primary? Pain Reason for admit: Patient admitted to medicine due to confusion also endorsing suicidal ideations. History of TBI. Recent sudden onset of short term memory loss. Patient was at [facility] treatment. Please see ED and medicine notes for further details. Legal Status: On Admission: VoluntaryVoluntary Current: Voluntary Intrusive Treatment Plan: No Other Legal Issues: Unknown Living Situation: Other (comment) Sober house with treatment, cannot return. Collateral Contacts Family/Friend Contact Release of Information?: Yes Family/Friend Contact Name: Alyson Cedeño - Mother Family/Friend Contact or [phone] Financial Insurance: Medicare and [facility] Employment/Income: Unable to assess Psychiatric/Chemical Dependency/Medical History Patient has no prior psychiatric hospitalizations. Patient has a history of TBI, depression and anxiety. Patient has a long history of alcohol use. Has been to multiple treatments and was recently in [facility] treatment at [facility]. Please see H&P for details in regards to medical history. Data SW met with patient, introduced self and explained role. Patient awakes with prompts, appears irritable and confused. Patient states that she is here to get help with anxiety and migraines. Patient states that she is not sure about anything, cannot remember transfer or where she was prior to admission. Patient reports that her memory is 'worse here' but can't offer any further details. Patient agreeable to SW contacting her mother, but appears irritated by request. Patient denies any needs, states that she is still waiting to see provider and finds that frustrating. SW called and spoke with Alyson. Provided contact information for SW and unit. Alyson confirms events leading up to hospitalization and presentation. Alyson states that they live in [place]. Alyson reports that patient reports worsening memory issues about a year ago that caused her to quit her job, but things had been going well in the past year. Alyson states that she saw patient at [place], and she did not seem as sharp as she usually. Alyson states that she does know that patient was going to agym while at the sober house and wonders if she could have gotten alcohol at that time. Reiterates much of collateral provided on medicine. Asks about plan of care, discharge, medications. SW relays, notes that it is too early to discuss discharge plans as team is not sure where things will get with her memory impairment. Alyson understanding, appreciative of the updates. GAIN Substance Disorder Screening (SDScr) GAIN-SS (When was the last time the patient) The patient used alcohol or drugs weekly?: 2 (2 to 12 months ago) Patient spent a lot of time getting or using alcohol or drugs, or feeling the effects of alcohol or drugs: 2 (2-12 months ago) Patient used alcohol/drugs even though caused social problems, lead to fights/trouble w/others: 2 (2-12 Months ago) Patient's use of alcohol/drugs caused them to give up, reduce/have problems at important activities at work/school/home/social events: 2 (2-12 Months ago) Patient had withdrawal problems from alcohol/drugs like shaking hands/vomiting/trouble sitting still/sleeping or used alcohol/drugs to stop sickness/withdrawal problems: 2 (2-12 Months ago) Score ((# of symptoms endorsed in the past year - total number of 3s and 2's): 3+, High, CD assessment indicated MICD Integrated Assessment: Yes 1. How do your mental health problems or symptoms impact your substance abuse (i.e. I use/use more often/use in larger quantities because it helps me: calm my nerves, cope, deal with the pain, relax, get through the day, etc.)? Unable to assess 2. How does substance use affect your mental health problems or symptoms (i.e. Does using cannabis make your more paranoid, are your problems with anxiety/depression worse after you come down or sober up?)? Unable to assess 3. On a scale of 1 to 10 how strongly do you feel that you might have a problem with substances (1 being no problem and 10 being having a definite problem)? Unable to assess 4. On a scale from 1 to 10 how strongly do you feel that you need to look into treatment for substance use (1 is don't need treatment and 10 is definitely need treatment)? Unable to assess Stage of Mental Health Treatment Stage 2: Contemplation/Early Persuasion (Regular contact with community provider, ambivalence about accepting treatment for CA, some readiness to consider impact of CA on quality of life, addressing needs in community has not reduced symptoms in last month) CA Treatment Recommendations for Inpatient/Outpatient Persuasion group (stage 2, 3), Motivational interventions (stage 2, 3), Medication education (stage 2) Stage of Substance Use Treatment Stage 2: Contemplation/Early Persuasion (Regular contact with community provider, ambivalence about accepting treatment for CD, some readiness to consider impact of CD on quality of life, addressing needs in community has not reduced substance use in last month) CD Treatment Recommendations for Inpatient/Outpatient Persuasion group (stage 2, 3), Motivational interventions (stage 2, 3), Education about alcohol and drug use (stage 2) Clinical Assessment Strengths: Family/social support, Agreeable to hospitalizations, Has insurance Barriers/Vulnerabilities: homeless/unstable housing, impaired insight, chemical dependency, mental health issues, patient noncompliance Risk Assessment: Low risk of harm towards self/others. Current Aggression towards others: No Clinical Summary: Depression, anxiety, TBI, memory loss Reasons for readmission in last 30 days Initial Social Work Plan Anticipated Disposition: TBD, family? [employer] Initial Assessments - Lucrecia Lockett OTR/Josue - 09/04/2021 8:11 AM [employer] [facility] OT Initial Assessment Diagnosis: Encounter Diagnoses Name Primary? Pain Patient Data on File [address] [place] [id number] Social History Socioeconomic History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 1700, Until Discontinued, Indications: Alcoholic Wernicke-Korsakoff Syndrome thiamine (VITAMIN B-1) tablet 100 mg 0900 (Automatical ly Held - Provider: Brandon Murphy MD) 0900 (Automatically Held - Provider: Georgia Perkins) 0900 (Automatically Held - Provider: Brandon Murphy MD)165 (Unheld by provider in Manage Orders - Provider: Inpatient Template [facility]) 100 mg, Oral, DAILY, First dose on Tue09/04/21 at 0900, Until Di scontinued PRN Medication Order 09/11/2021 09/12/2021 09/13/2021 acetaminophen (TYLENOL) tablet 650 mg 650 mg, Oral, Q6H PRN, Pain/Fever, Initi ally give acetaminophen for patient with mild pain., Starting on Tue09/03/21 at 2046, Until 09/13/21 at 1651, Initially give acetaminophen for patient with mild pain. Acetaminophen may be given WITH o ther pain medications as adjunct pain relief. Do not give two acetaminophen containing medications within 4 hours of each other. bisacodyl (DULCOLAX) rectal suppository 10 mg(Linked Group 1) 10 mg, Rectal, DAILY PRN, Constipation, No stool in the last 3 days, Starting on Tue09/03/21 at 2046, Until 09/13/21 at 1651, Cumulative bowel medication orders. Administer based on medications availa ble on OCT. If no stool in last day star t Senna-S BID PRN no stool, if no stool in last 2 days add Miralax DAILY PRN no stool, if no stool in last 3 days add bisacodyl suppository DAILY PRN until patien t stools. When patient stools stop givin g PRN meds and continue monitoring for bowel activity. When no stools X 1 day, begin regimen again until patient stools. calcium carbonate (TUMS) chewable tablet 1,000 mg 1,000 mg, Oral, Q4H PRN, Heartburn, Upse t Stomach, Starting on Tue09/03/21 at 204, Until 09/13/21 at 165, For indigestion/upset stomach hydrOXYzine pamoate (VISTARIL) capsule 50 mg 2040 (Giv en - Provider: Jon Lockett RN) 134 (Given - Provider: Devendra Flores)2020 (Given - Provider: Jeremy Prescott RN) 132 (Given - Provider: Devendra Flores) 50 mg, Oral, Q6H PRN, Anxiety, Starting on Tue09/04/21 at 1540, Until 09/13/21 at 1651, Indications: Anxiety melatonin tablet 6 mg 2353 (Given - Provider: Kathrin shields, LIZZ) 6 mg, Oral, HS PRN, Sedation, Starting o n Tue09/03/21 at 2050, Until 09/13/21 at 1651 OLANZapine (ZyPREXA) tablet 5 mg 5 mg, Oral, BID PRN, Other, Severe anxie ty, agitation, Starting on 09/07/21 at 1151, Until 09/13/21 at 1651 ondansetron (ZOFRAN-ODT) disintegrating tablet 4 mg 4 mg, Oral, Q8H PRN, Nausea, Vomiting, S tarting on Sole 09/03/21 at 205, Until 09/13/21 at 1651, Do not swallow tablet whole. Allow to dissolve on the tongue without chewing., Indications: Nausea and Vomiting polyethylene glycol (MIRALAX) oral powder 17 g(Linked Group 1) 17 g, Oral, DAILY PRN, Constipation, No stool in the last two days, Starting on Tue09/03/21 at 204, Until 09/13/21 at 1651, Cumulative bowel medication orders. Administer based on medications availab le on OCT. If no stool in last day start Senna-S BID PRN no stool, if no stool in last 2 days add Miralax DAILY PRN no stool, if no stool in last 3 days add bisacodyl suppository DAILY PRN until patient stools. When patient stools stop giving PRN meds and continue monitoring for bowel activity. When no stools X 1 day, begin regimen again until patient stools. sennosides-docusate sodium (SENOKOT S) 8 .6-50 MG per tablet 2 Tablet(Linked Group 1) 2 Tablet, Oral, BID PRN, Constipation, N o stool in the last day, Starting on Tue09/03/21 at 204, Until 09/13/21 at 1651, Cumulative bowel medication orders. Administer based on medications available on OCT. If no stool in last day start Se nna-S BID PRN no stool, if no stool in last 2 days add Miralax DAILY PRN no stool, if no stool in last 3 days add bisacodyl suppository DAILY PRN until patient st ools. When patient stools stop giving IL N meds and continue monitoring for bowel activity. When no stools X 1 day, begin regimen again until patient stools. SUMAtriptan (IMITREX) tablet 50 mg 50 mg, Oral, ONCE PRN, Migraine, Startin g on Tue09/10/21 at 1910, Until 09/13/21 at 1651, For 1 dose, Give at onset of headache. May repeat after 2 hours. Do not exceed 200 mg in 24 hours. traZODone (DESYREL) tablet 25 mg 2352 (Given - Provide r: Kathrin Neville RN) 2006 (Given - Provider: Jeremy Prescott RN) 25 mg, Oral, HS PRN, Sleep, Starting on Tue09/11/21 at 1755, Until 09/13/21 at 1651 Linked Groups Order Group 1: sennosides-docusate sodium (SENOKOT S) 8.6-50 MG per tablet 2 TabletJump to med 2 Tablet, Oral, BID PRN, Constipation, N o stool in the last day, Starting on Tue09/03/21 at 2046, Until 09/13/21 at 1651
Cumulative bowel medication orders. Administer based on medications av ailable on OCT. If no stool in last day start Senna-S BID PRN no stool, if no stool in last 2 days add Miralax DAILY PRN no stool, if no stool in last 3 days add bisacodyl suppository DAILY PRN until pa tient stools. When patient stools stop g iving PRN meds and continue monitoring for bowel activity. When no stools X 1 day, begin regimen again until patient stools.
And polyethylene glycol (MIRALAX) oral powder 17 gJump to med 17 g, Oral, DAILY PRN, Constipation, No stool in the last two days, Starting on Tue09/03/21 at 2046, Until 09/13/21 at 1651
Cumulative bowel medication orders. Administer based on medications available on OCT. If no stool in last d ay start Senna-S BID PRN no stool, if no stool in last 2 days add Miralax DAILY PRN no stool, if no stool in last 3 days add bisacodyl suppository DAILY PRN until patient stools. When patient stools sto p giving PRN meds and continue monitoring for bowel activity. When no stools X 1 day, begin regimen again until patient stools.
And bisacodyl (DULCOLAX) rectal suppository 10 mgJump to med 10 mg, Rectal, DAILY PRN, Constipation, No stool in the last 3 days, Starting on Tue09/03/21 at 2046, Until 09/13/21 at 1651
Cumulative bowel medication orders. Administer based on medication s available on OCT. If no stool in last day start Senna-S BID PRN no stool, if no stool in last 2 days add Miralax DAILY PRN no stool, if no stool in last 3 days add bisacodyl suppository DAILY PRN unti l patient stools. When patient stools st op giving PRN meds and continue monitoring for bowel activity. When no stools X 1 day, begin regimen again until patient stools.
documented in this encounter Care Teams Jack Setter Relationship Specialty Start Date End Date No Primary/Referring, Phy PCP - General 08/31/21 documented as of this encounter
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
--- OUTSIDE RECORDS SUMMARY | 2022-06-13 21:44 | XMS_ITS | Encounter Summary ---
:1975 Author Organization [employer] Address [address] [place] [address] Care Team Providers Name Role Phone No Primary/Referring, Phy Primary Care Provider Unavailable Reason for Referral Consult/Transfer Care (Routine) - Incomplete Specialty Diagnoses / Procedures Referred By Contact Refer red To Contact Diagnoses Altered mental status, unspecified altered mental status type Suicidal ideation Leah Salazar MD [address] [place] [id number] Referral ID Status Reason Start Date Expiration Date Visits V isits Requested Authorized [id number] Incomplete 09/03/2021 10/04/2021 1 1 Scheduling Instructions This order is [...] ask your clinician's staff to assist you. [facility]OR HR COMMUNICATIONS (Routine) Specialty Diagnoses / Procedures Referred By Contact Refer red To Contact [address] [phone] Referral ID Status Reason Start Date Expiration Date Visits Requ ested Visits Authorized [facility]OR HR COMMUNICATIONS Consult/Transfer Care (Routine) - Incomplete Specialty Diagnoses / Procedures Referred By Contact Refer red To Contact Diagnoses Altered mental status, unspecified altered mental status type Leah Salazar MD [address] [place] [id number] Referral ID Status Reason Start Date Expiration Date Visits V isits Requested Authorized [id number] Incomplete 09/03/2021 10/04/2021 1 1 Scheduling Instructions This order is [...] ask your clinician's staff to assist you. CTOR HR COMMUNICATIONS Reason for Visit Reason Comments CRISIS EVALUATION--ED Auth/Cert Specialty Diagnoses / Procedures Referred By Contact Refer red To Contact Diagnoses Suicidal ideation Altered mental status, unspecified altered mental status type Suicidal ideation Altered mental status, unspecified altered mental status type Suicidal ideation Referral ID Status Reason Start Date Expiration Date Visits Requ ested Visits Authorized [id number] 1 1 Encounter Details Date Type Department Care Team Description 08/31/2021 - Hospital Encounter RH W2 OBSERVATION Blayne Diaz MD [address] [place] [address] Altered mental status, unspecified alter ed mental status type (Primary Dx); 09/03/[address] [place] [address] Clifton Peña MD [address] [place] [address] Suicidal ideation; [place], [place] Leah Salazar MD [address] [place] [address] Pain; [id number] Anxiety; [phone] Passive suicida l ideations; Memory impairme nt; Agitated; Low blood potas sium; Seizure disorde r (HRC); COVID-19 ruled out; Former smoker; History of trau matic brain injury; History of post traumatic stress disorder (PTSD); History of alco hol abuse; long-term use o f drug Social History Tobacco Use Types Packs/Day Years [...] Sign Reading Time Taken Comments Blood Pressure 140/93 09/03/2021 4:06 PM DIRECTOR HR COMMUNICATIONS Pulse 96 09/03/2021 4:06 PM DIRECTOR HR COMMUNICATIONS Temperature 36.2 ??C (97.2 ??F) 09/03/2021 4:06 PM DIRECTOR HR COMMUNICATIONS Respiratory Rate 16 09/03/2021 4:06 PM DIRECTOR HR COMMUNICATIONS Oxygen Saturation 96% 09/03/2021 4:06 PM DIRECTOR HR COMMUNICATIONS Inhaled Oxygen Concentration - - Weight 103.3 kg (227 lb 11.2 oz) 08/31/2021 6:19 PM DIRECTOR HR COMMUNICATIONS Height 157.5 cm (5' 2) 08/31/2021 6:19 PM DIRECTOR HR COMMUNICATIONS Body Mass Index 41.65 08/31/2021 6:19 PM DIRECTOR HR COMMUNICATIONS documented in this encounter Discharge Summaries Leah Salazar MD - 09/03/2021 8:08 PM CST [facility] Discharge Summary Admit date: 08/31/2021 9:43 AM Discharge date: 09/03/2021 Date of Service: 09/03/2021 Service: Psychiatry Staff MD:Leah Salazar MD Final diagnoses (primary and secondary): Passive SI Memory impairment History of TBI History of alcohol use disorder Hypokalemia PTSD Anxiety Problem that led to hospitalization: Key Peres is a 46 y.o. old female with history of TBI, EtOH use disorder, PTSD, and anxiety whohad recent witnessed seizure and prior abnormal EEG who presents with suicidal ideation and concern for worsening memory loss. Hospital Course Test results: Labs remarkable for hypokalemia, potassium prior to discharge was 3.1. UDS was negative. LFTs within normal limit throughout admission. Folate WNL and B12 mildly elevated. No anemia. Procedures: EEG completed without evidence of electrographic seizures or epileptiform discharges Complications: none Brief hospital course by problem: Memory impairment Recent seizure Subjective worsening of [...] Low acute risk - per collateral at [facility] patient stated she would take all of her pills. Does not have access to medication in the hospital, denies active plan on my interview, denies history of suicide attempts. Evaluated by psychiatry and she is amenable tovoluntary admission. - CUSTOMER EXPERIENCE STRATEGIST olanzapine discontinued due to possible contributions to AMS ?? Hypokalemia Noted to be hypokalemic on admission which was repleted with PO and IV potassium. Level improved. Started on supplemental K 40 meq BID. Continue repletion on discharge. - Will need repeat potassium check while on psychiatry Patient seen and examined today. Pertinent discharge exam findings: General: Sitting up in bed, conversational, not in acute distress, able to ambulate with minimal assistance from FWW Neuro: awake, alert, oriented to self, place, month, and year. Slow speech but responds to questionsappropriately. Moving all extremities equally CV: regular rate and rhythm Lungs: speaking in complete sentences and breathing comfortably on room air; lungs clear to auscultation bilaterally Abd: soft, non-tender to palpation Ext: No peripheral edema Skin: warm Discharge Information Condition at discharge:stable. Discharge destination:Inpatient Psychiatry. Medications at discharge: Medication List START taking these medications potassium bicarbonate-citric acid 20 MEQ effervescent tablet Commonly known as: EFFER-K Take 2 Tablets by mouth two times a day after meals. Allow tablet to dissolve completely in 3-4 ounces of cold juice of choice prior to administration. thiamine 100 MG tablet Take 1 Tablet by mouth daily. Start taking on: September 10, 2021 CHANGE how you take these medications gabapentin 400 MG capsule Commonly known as: NEURONTIN Take 1 Capsule by mouth three times a day. Indications: Neuropathic Pain What changed: ?? medication strength ?? how much to take ?? when to take this CONTINUE taking these medications amLODIPine 2.5 MG tablet Commonly known as: NORVASC cholecalciferol 25 MCG (1000 UT) tablet Commonly known as: VITAMIN D3 Take 1,000 Units by mouth. donepezil 10 MG tablet Commonly known as: ARICEPT Take 10 mg by mouth. DULoxetine 60 MG capsule Commonly known as: CYMBALTA Take 60 mg by mouth daily. metoprolol succinate 100 MG 24 hour release tablet Commonly known as: TopROL XL Take 1 Tablet by mouth daily. SUMAtriptan 25 MG tablet Commonly known as: IMITREX TAKE 1 TABLET BY MOUTH AT ONSET OF MIGRAINE. IF HEADACHE PERSISTS AFTER 2 HOURS, TAKE ANOTHER DOSE. MAX OF 2 TABLETS IN 24 HOURS. traZODone 50 MG tablet Commonly known as: DESYREL Take 50 mg by mouth. STOP taking these medications chlorthalidone 25 MG tablet Commonly known as: HYGROTON Code Status: Full Code. Follow-Up Care Labs and Imaging tests done in the hospital with results pending at this time: B1 Labs and Imaging tests which should be done or considered in the outpatient setting: Will need repeat potassium to assess need for ongoing potassium supplementation in the setting of diet normalization Additional Information: none Name and 24 hour phone number of discharging physician: NAME:Jessica Richradson MD , PHONE NUMBER [phone] For information about patient referrals and other discharge orders, please see Discharge Instructions or the Other Orders tab in Chart Review. This note is electronically signed by . --End of Report-- I evaluated the patient performing henry/critical portions of the exam and discussed the management with the resident team. I reviewed Dr. Richardson' note agree with the documented findings and plan of caretoday. Any additions or corrections are noted in blue. Leah Salazar MD [facility] Date of Service: 09/03/2021 CTOR HR COMMUNICATIONS documented in this encounter Discharge Instructions Discharge InstructionsJen Raman RN - 09/03/2021 4:30 PM CST Community Resources N/A Fall Prevention Recommendations ??? Follow therapy recommendations around equipment use and activity progression ??? Remove trip hazards to keep pathways clear in the home ??? Remove throw rugs ??? Keep frequently used items in easy to reach places ??? Use non-slip mats in the bathtub and on shower floors ??? Improve lighting in your home in all areas ??? Wear shoes or non-slip footwear inside the house CTOR HR COMMUNICATIONS Discharge Instr - Jen Hung RN - 09/03/2021 4:30 PM CST Call your clinic or seek medical help if you have any sudden change in your condition or if you haveany of the following: chest pain difficulty breathing fever greater than 101.5 degrees F pain not relieved with usual methods shortness of breath CTOR HR COMMUNICATIONS documented in this encounter Medications at Time of Discharge Medication Sig Dispensed Refills Start Date End Date amLODIPine (NORVASC) 2.5 0 05/23/2021 MG tabletIndications: Hypertension cholecalciferol (VITAMIN Take 1,000 Units by 0 D3) 25 MCG (1000 UT) mouth. tabletIndications: Vitamin D Deficiency multivitamin with Take 1 Tablet by 30 Tablet 4 09/13/2021 minerals tablet mouth daily. SUMAtriptan (IMITREX) 25 TAKE 1 TABLET BY 0 05/19 MG tabletIndications: MOUTH AT ONSET OF Migraine MIGRAINE. IF HEADACHE PERSISTS AFTER 2 HOURS, TAKE ANOTHER DOSE. MAX OF 2 TABLETS IN 24 HOURS. thiamine 100 MG tablet Take 1 Tablet (100 30 Tablet 3 09/13 mg) by mouth daily. donepezil (ARICEPT) 10 Take 1 Tablet (10 30 Tablet 3 202109/13/2021 MG tablet mg) by mouth daily at bedtime. donepezil (ARICEPT) 10 Take 10 mg by 0 04/06/2021 09/13/2021 MG tabletIndications: mouth. memory impairment DULoxetine (CYMBALTA) 30 Take 3 Capsules (90 90 Capsule 3 09/13/2021 MG capsuleIndications: mg) by mouth daily. Generalized Anxiety Indications: Disorder, Major Generalized Anxiety Depressive Disorder Disorder, Major Depressive Disorder DULoxetine (CYMBALTA) 60 Take 60 mg by mouth 0 09/13/2021 MG capsuleIndications: daily. Generalized Anxiety Disorder gabapentin (NEURONTIN) Take 3 Capsules 180 Capsule 3 022 09/13/2021 400 MG (1,200 mg) by mouth capsuleIndications: two times a day. Alcohol Withdrawal Indications: Syndrome, Neuropathic Alcohol Withdrawal Pain Syndrome, Neuropathic Pain gabapentin (NEURONTIN) Take 1 Capsule by 270 Capsule 3 09/0309/13/2021 400 MG mouth three times a capsuleIndications: day. Indications: Neuropathic Pain Neuropathic Pain hydrOXYzine pamoate Take 1 Capsule (50 30 Capsule 0 09/13/19 22 09/13/2021 (VISTARIL) 50 MG mg) by mouth daily capsuleIndications: as needed for Anxiety Anxiety. Indications: Feeling Anxious melatonin 3 MG tablet Take 2 Tablets (6 30 Tablet 3 022 09/13/2021 mg) by mouth at bedtime as needed for Insomnia. metoprolol succinate Take 1 Tablet by 0 09/12/2021 (TOPROL XL) 100 MG 24 mouth daily. hour release tabletIndications: Hypertension naltrexone (REVIA) 50 MG Take 0.25 Tablets 36 Tablet 3 01/202209/13/2021 tabletIndications: (12.5 mg) by mouth Alcohol Use Disorder daily for 7 days, THEN 0.5 Tablets (25 mg) daily for 7 days, THEN 1 Tablet (50 mg) daily. Once you reach a dose of 50 mg please discuss with your doctor if you want the dose to be increased beyond 50 mg. You can also discuss initiating once monthly Revia injection (naltrexone).. Indications: Abuse or Misuse of Alcohol. potassium Take 2 Tablets by 0 09/03/2021 022 bicarbonate-citric acid mouth two times a (EFFER-K) 20 MEQ day after meals. effervescent tablet Allow tablet to dissolve completely in 3-4 ounces of cold juice of choice prior to administration. thiamine 100 MG tablet Take 1 Tablet by 0 022 09/13/2021 mouth daily. traZODone (DESYREL) 50 Take 50 mg by 0 05/19/2021 09/13/2021 MG tabletIndications: mouth. Anxiety Disorder documented as of this encounter Progress Notes Leah Salazar MD - 09/03/2021 7:25 AM CST Images from the original note were not included. [facility] Medicine Progress Note (MD) Patient Name: Key Peres Attending: Leah Salazar MD Date of Service: 09/03/2021 Interval Events and Subjective: Psychiatry and Addiction Medicine evaluations yesterday. Transitioned from PO to IV thiamine. States she remembers meeting with other providers yesterday but isn't sure of their names or what services they were with. Denies headache, blurry vision, diplopia. Objective: Most Recent Vital Signs: Min and Max Vital Signs (24 hours): Temp: 97.9 ??F (36.6 ??C) BP: 104/61 Pulse: 79 Resp: 12 SpO2: 92 % Temp Min: 97.8 ??F (36.6 ??C) Max: 97.9 ??F (36.6 ??C) BP Min: 104/61 Max: 135/79 Pulse Min: 79 Max: 96 Resp Min: 12 Max: 12 SpO2 Min: 92 % Max: 95 % General: Sitting up in bed, conversational, not in acute distress Neuro: - Mental Status: awake, alert, oriented to self, place, month, and year. Slow speech but responds toquestions appropriately. - Cranial Nerves: Impaired abduction of left eye, full EOM of right eye. Face symmetric at rest and with activation. Tongue protrusion midline with full lateral movements. - Strength: BUE 5/5 with elbow flexion/extension, hand coat operator insulator. BLE: 5/5 with hip flexion, knee extension/flexion, ankle dorsiflexion CV: regular rate and rhythm Lungs: speaking in complete sentences and breathing comfortably on room air; lungs clear to auscultation bilaterally Abd: soft, non-tender to palpation Ext: No peripheral edema Skin: warm Psych: tearful, endorses passive SI, denies previous suicide attempts; denies HI, , Labs: Reviewed and notable for the following: BMP: K 3.1 Imaging/Other: No new imaging. Assessment and Plan: 46 y.o. old female with history of TBI, EtOH use disorder, PTSD, and anxiety who had recent witnessed seizure and prior abnormal EEG who presents with suicidal ideation and concern for worsening memoryloss. EEG completed 09/01 without evidence of electrographic seizures or epileptiform discharges. Empiric IV thiamine. Today: - Continue IV thiamine - Replenish potassium - OT evaluation #Memory impairment #Recent seizure Subjective worsening of [...] anti-epileptic at this time, low suspicion for ASSISTANT FILM EDITOR infection. - Requested recent CT and MRI be pushed to PACS - Continue thiamine 100 mg daily - OT consult, appreciate recommendations #Suicidal Ideation Low acute risk - per collateral at [facility] patient stated she would take all of her pills. Does not have access to medication in the hospital, denies active plan on my interview, denies history of suicide attempts. - Defer suicide precautions - Psychiatry consult, appreciate recommendations - high dose IV thiamine, hold olanzapine #Hypokalemia Replenish and monitor with daily metabolic panel. Likely secondary to poor PO intake; no report of diarrhea. 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 Presentation at [facility] on 08/26 notable for ethanol level of 0.04. Per report, no ethanol detected on breathylzer in ED. - Will defer CIWA protocol at this time given low suspicion of alcohol withdrawal - Addiction medicine consult Prophylaxis: Low risk for DVT, chemoprophylaxis not indicated Disposition: Inpatient Code Status/Goals of Care: Full Patient staffed with Dr. Salazar. Faizan Kingsley MD Resident Physician PGY-1 Pager: [phone] I evaluated the patient performing henry/critical portions of the exam and discussed the management with the resident team. I reviewed Dr. Kingsley's note agree with the documented findings and plan of care today. Any additions or corrections are noted in blue. -Mentation seems improved today. Consider possible transfer to psychiatry for ongoing passive SI. Leah Salazar MD [facility] Date of Service: 09/03/2021 CTOR HR COMMUNICATIONS Leah Salazar MD - 09/02/2021 7:53 AM CST Images from the original note were not included. [facility] Progress Note () Patient Name: Key Peres Attending: Leah Salazar MD Date of Service: 09/02/2021 Interval Events and Subjective: EEG completed 09/01, no epileptiform discharges or electrographic seizures. Neurology signed off. Reports a headache this morning, 10 at bilateral temples. Denies visual changes, numbness, paresthesias. Tearful during interview. Objective: Most Recent Vital Signs: Min and Max Vital Signs (24 hours): Temp: 97.8 ??F (36.6 ??C) BP: 102/59 Pulse: 87 Resp: 17 SpO2: 98 % Temp Min: 97.5 ??F (36.4 ??C) Max: 98.4 ??F (36.9 ??C) BP Min: 102/59 Max: 134/70 Pulse Min: 68 Max: 93 Resp Min: 16 Max: 18 SpO2 Min: 92 % Max: 98 % General: Sitting up in bed, conversational, not in acute distress Neuro: - Mental Status: awake, alert, oriented to self, place, month, and year. Slow speech but responds toquestions appropriately. - Cranial Nerves: Impaired abduction of left eye, full EOM of right eye. Light touch sensation intact throughout V1-V3. Face symmetric at rest and with activation. Tongue protrusion midline with full lateral movements. - Strength: BUE 5/5 with elbow flexion/extension, hand coat operator insulator. BLE: 5/5 with hip flexion, knee extension/flexion, ankle dorsiflexion - Sensation: Light touch sensation intact and symmetric throughout BUE and BLE - Reflexes: Mildly brisker of LUE and LLE compared to right CV: regular rate and rhythm Lungs: speaking in complete sentences and breathing comfortably on room air; lungs clear to auscultation bilaterally Abd: soft, non-tender to palpation Ext: No peripheral edema Skin: warm Psych: tearful, endorses passive SI, denies previous suicide attempts; denies HI, AH, VH Labs: Reviewed and notable for the following: BMP: K 2.8 Mg 1.9, Phos 2.4 Imaging/Other: EEG 09/01/21 - interpretation per neurology INTERPRETATION: This EEG is normal during the awake and sleep states as well as during the activation procedure of photic stimulation. CLINICAL CORRELATION: This is a normal awake and sleep EEG. No epileptiform discharges or seizures recorded. If clinicallyindicated, a repeat study with prolonged sampling may have higher sensitivity for detecting interictal abnormalities. Assessment and Plan: 46 y.o. old female with history of TBI, EtOH use disorder, PTSD, and anxiety who had recent witnessed seizure and prior abnormal EEG who presents with suicidal ideation and concern for worsening memoryloss. EEG completed 09/01 without evidence of electrographic seizures or epileptiform discharges. Today: - replenish potassium - Psychiatry consult - Addiction Medicine consult - OT evaluation #Memory impairment #Recent seizure Subjective worsening of [...] anti-epileptic at this time, low suspicion for ASSISTANT FILM EDITOR infection. - Requested recent CT and MRI be pushed to PACS - Continue thiamine 100 mg daily - OT consult, appreciate recommendations #Suicidal Ideation Low acute [facility] - [facility] stated she would take all of her pills. Does not have access to medication in the hospital, denies active plan on my interview, denies history of suicide attempts. - Defer suicide precautions - Psychiatry consult #Hypokalemia Replenish and monitor with daily metabolic panel. 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 Presentation at [facility] on 08/26 notable for ethanol level of 0.04. Per report, no ethanol detected on breathylzer in ED. - Will defer CIWA protocol at this time given low suspicion of alcohol withdrawal - Addiction medicine consult Prophylaxis: Low risk for DVT, chemoprophylaxis not indicated Disposition: Inpatient Code Status/Goals of Care: Full Patient staffed with Dr. Salazar. Faizan Kingsley MD Resident Physician PGY-1 Pager: [phone] I evaluated the patient performing henry/critical portions of the exam and discussed the management with the resident team. I reviewed Dr. Kingsley's note agree with the documented findings and plan of care today. Any additions or corrections are noted in blue. -EEG normal Appreciate psychiatry input today. Starting on high dose thiamine. May consider inpatient psych stay pending course. Leah Salazar MD Hospital Medicine Date of Service: 09/02/2021 CTOR HR COMMUNICATIONS Leah Salazar MD - 09/01/2021 9:17 AM CST Images from the original note were not included. [facility] Medicine Progress Note () Patient Name: Key Peres Attending: Leah Salazar MD Date of Service: 09/01/2021 Interval Events and Subjective: Frontal headache overnight, resolved with Tylenol. Reports she typically has headaches 2-3 days per week. Shares that she called her son Rajiv yesterday. Tearful during interview. Denies chest pain, shortness of breath, nausea, vomiting, incontinence of bowel or bladder. Objective: Most Recent Vital Signs: Min and Max Vital Signs (24 hours): Temp: 98.4 ??F (36.9 ??C) BP: 124/66 Pulse: 68 Resp: 18 SpO2: 93 % Temp Min: 97.6 ??F (36.4 ??C) Max: 98.4 ??F (36.9 ??C) BP Min: 124/66 Max: 130/51 Pulse Min: 62 Max: 68 Resp Min: 12 Max: 18 SpO2 Min: 91 % Max: 95 % General: Sitting up in bed, conversational, not in acute distress Neuro: - Mental Status: awake, alert, oriented to self, place, and month (says year is 2020). Correctly spells WORLD backwards. Serial 7s to 93, then does not attempt further. Responds to questions appropriately. - Cranial Nerves: Impaired abduction vs esotropia of left eye, full EOM of right eye. Light touch sensation intact throughout V1-V3. Face symmetric at rest and with activation. Tongue protrusion midline with full lateral movements. - Strength: BUE 5/5 with elbow flexion/extension, hand coat operator insulator. BLE: 5/5 with hip flexion, knee extension/flexion, ankle dorsiflexion - Sensation: Light touch sensation intact and symmetric throughout BUE and BLE - Reflexes: Mildly brisker of LUE and LLE compared to right HEENT: No evidence of bite lopez on tongue or buccal mucosa. CV: regular rate and rhythm Lungs: speaking in complete sentences and breathing comfortably on room air; lungs clear to auscultation bilaterally Abd: soft, non-tender to palpation Ext: No peripheral edema Skin: warm Psych: tearful, endorses passive SI, denies previous suicide attempts, says that she has considered taking all of her pills at once in the past but denies doing so; denies HI, , Labs: Reviewed and notable for the following: BMP: K 3.0 Imaging/Other: No new imaging today. Assessment and Plan: 46 y.o. old female with history of TBI, EtOH use disorder, PTSD, and anxiety who had recent witnessed seizure with abnormal EEG who presents with suicidal ideation and concern for worsening memory loss. #Memory impairment #Recent seizure Subjective worsening of TBI-related memory impairment. Recent hospitalization significant for witnessed seizure with abnormal EEG; was not started on anti- epileptic medication. Presentation was notablefor alcohol level of 0.04, possible that seizure was related to alcohol withdrawal. - B12, Folate, Thiamine in process - Neurology consult, appreciate recommendations - Video EEG - Requested recent CT and MRI be pushed to PACS - Continue thiamine 100 mg daily - OT consult, appreciate recommendations #Suicidal Ideation Low acute risk - [facility] stated she would take all of her pills. Does not have access to medication in the hospital, denies active plan on my interview, denies history of suicide attempts. - Defer suicide precautions #Hypokalemia Replenish and monitor with daily metabolic panel. 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
--- OUTSIDE RECORDS SUMMARY | 2022-06-13 21:44 | XMS_ITS | Encounter Summary ---
:1975 Author Organization [employer] Address [address] [place] [address] Care Team Providers Name Role Phone Needs Pcp, Assignment Primary Care Provider Reason for Visit Reason Comments Vaginal Discharge Encounter Details Date Type Department Care Team Description 11/12/2013 Hospital Encounter [facility] Jonh Phillips (Primary Dx); Miil Levine PA-C Vaginal pruritus; [address] Bacterial v aginosis; [address] [place] [id number] [phone] Social History Tobacco Use Types Packs/Day Years Used Date Smoking Tobacco: Never Assessed Food Insecurity Answer Date Recorded Within the [...] Sign Reading Time Taken Comments Blood Pressure 116/81 11/12/2013 10:13 AM CDT Pulse 72 11/12/2013 10:13 AM CDT Temperature 36.8 ??C (98.2 ??F) 11/12/2013 10:13 AM CDT Respiratory Rate 16 11/12/2013 10:13 AM CDT Oxygen Saturation - - Inhaled Oxygen Concentration - - Weight - - Height - - Body Mass Index - - documented in this encounter ED Notes Jonh Phillips PA-C - 11/12/2013 11:38 AM CDT HPI: Patient presents today concerned about vaginal pruritus and some mild vaginal discharge. Patient wonders if she might have a yeast infection. Patient was at a residential because her recent traumatic brain injury. Patient states they prescribed her a prescription for Monistat cream which helps some. Patient states symptoms are still present though she has noticed some intermittent vaginal bleeding which she wonders if that might be her menstrual period. Patient states her menstruation has been irregular since traumatic brain injury. Patient also wonders if she might have some vaginal symptoms her constipation. Patient has had a harder time passing her stools recently although she is still passing stools. Patient also not she has some anal sores is unsure why. Patient denies sexual activity for the last 6 months. Patient is not . Patient has noticed a mild intermittent dysuria. No history of STDs. Patient is a smoker without a history of diabetes. Her last ObGyn exam greater than one year ago and normal. Patient believes she has an IUD based upon what they told her. Patient denies oral contraceptive pills. Objective: Constitutional: WDWN. A & O x 3. NAD. Sitting comfortably in a chair when I entered the exam room. Well appearing. Pleasant to speak with. In good spirits. Head: NCAT. No sinus tenderness upon palpation. Eyes: PEERLA. Conjunctiva pink and healthy appearing. White sclera. Ears: EC's patent bilaterally without erythema. TM's bilaterally harris and translucent. Nose: Turbinates pink without discharge. Nares patent. Throat: Oropharynx pink and healthy appearing with uvula midline. Tonsils pink and non-enlarged. Clear vocal tone. Mouth: [place], moist buccal mucosa without lesions. Heatlhy appearing gingiva without dental decay. Neck: Supple. Symmetric. No cervical lymphadenopathy. Heart: RRR without murmurs, clicks, rubs. Lungs: CTAB. No wheezes, rhonchi, or rales. No accessory muscle use. G/U: Female nurse present. Mild low white vaginal discharge present about the vaginal vault. Slight erythema within the vaginal vault. There seemed to be very mild discomfort with cervical motion without right or left adnexal tenderness present. No lesions appreciated within the vaginal vault or aboutthe labia. There is an anal fissure present at 6:00 is approximately 1 cm in length and very superficial. No surrounding erythema. No fluctuance or induration in this region. No abscess formation present. No significant tenderness to palpation of this region. Abdomen: NABS. Soft. Non-tender. No hepatosplenomegally. No guarding or rebound tenderness. Skin: Warm, dry, intact. No rashes on exposed skin. Wet prep: My interpretation was abnormal with few clue cells without trichomonas or yeast present. Urine test: Negative. Urine microscopic was normal. Urinalysis was normal. Assessment: Bacterial vaginosis. Anal fissure. Plan: Flagyl prescription given to be taken as directed. I stressed the importance of soft stools and advised MiraLAX, fiber and increased water intake. Drink much fluids and take fiber or other laxative agents as discussed. Consider miralax, milk of magnesia or colace as discussed. If new symptoms appear such as nausea, vomitting, blood in your stool, the absence of passing gas or other symptoms as discussed return to urgent care or go to the ED. Avoid dairy products. Patient educated at length andagreed with assessment and plan and left in stable condition. This dictation was performed with the assistance of a voice recognition software and may contain voice recognition errors. documented in this encounter Miscellaneous Notes Medication History - Deny Hammonds MD - 11/12/2013 11:38 AM CDT INPATIENT MEDS Encounter Date: 11/12/13 metroNIDAZOLE (FLAGYL) 500 mg tablet Start Date:11/12/13, End Date:-, Frequency:2 TIMES DAILY *No Administrations Recorded documented in this encounter Plan of Treatment Not on filedocumented as of this encounter Procedures Procedure Name Priority Date/Time Associated Comments Diagnosis URINE MICROSCOPIC STAT 11/12/2013 10:38 Dysuria Result s for this AM CDT procedure are i n the results section. WET PREP STAT 11/12/2013 10:38 Vaginal pruritus Results for this AM CDT procedure are i n the results section. URINALYSIS STAT 11/12/2013 10:38 Dysuria Results for this ROUTINE(MICRO IF POS) AM CDT proced ure are in the results section. SEXUALLY TRANSMITTED Routine 11/12/2013 10:38 Vaginal pruritus Results for this DISEASE PROBE AM CDT procedure are in the results section. URINE CULTURE STAT 11/12/2013 10:38 Dysuria Results fo r this AM CDT procedure are i n the results section. TEST STAT 11/12/2013 10:38 Vaginal pruritus Resul ts for this (URINE) AM CDT procedure are i n the results section. documented in this encounter Results Urine Culture (11/12/2013 10:38 AM CDT) [employer] Method Time Signature Source Urine HP CONVERSION Site clean catch HP CONVERSION Urine Culture Mixed gram HP CONVERSION positive organisms. 10-50,000 cfu/mL Specimen (Source) Anatomical Collection Method Collection Time Re ceived Time Location / / Volume Laterality Urine:clean catch 11/12/2013 10:38 AM CDT Jonh Phillips PA-C LAB_1 Performing Organization Address City/[facility]/ZIP Code Phon e Number HP CONVERSION SEXUALLY TRANSMITTED DISEASE PROBE (11/12/2013 10:38 AM CDT) Component Value Ref Test Analysis Performed At [employer] Range Method Time Signature Source Endocervical for HP CONVERSION molecular testing Site HP CONVERSION Chlamydia Chlamydia HP CONVERSION Trach DNA trachomatis NEGATIVE by DNA amplification GC DNA Neisseria HP CONVERSION gonorrhea NEGATIVE by DNA amplification. Specimen (Source) Anatomical Collection Method Collection Time Re ceived Time Location / / Volume Laterality Endocervical for 11/12/2013 10:38 molecular testing: AM CDT Jonh Phillips PA-C LAB_1 Performing Organization Address City/State/ZIP Code Phon e Number HP CONVERSION URINE MICROSCOPIC (11/12/2013 10:38 AM CDT) [employer] Method Time Signature Urine WBC None seen 0 - 4 HP CONVERSION Urine RBC 0-2 0 - 2 HP CONVERSION Epithelial Occasional HP CONVERSION Cells Specimen Anatomical Collection Method Collection Time Receive d Time (Source) Location / / Volume Laterality 11/12/2013 10:38 11/12/2013 AM CDT 11:13 AM CDT Narrative HP CONVERSION - 11/12/2013 11:20 AM CDT Performed at [facility], [address], [place] [address] Jonh Phillips PA-C LAB_1 Performing Organization Address [facility] Phon e Number HP CONVERSION URINALYSIS ROUTINE(MICRO IF POS) (11/12/2013 10:38 AM CDT) [facility] Method Time Signature Urine Type Urine:clean HP CONVERSION cat Turbidity Clear Clear HP CONVERSION U BILI Negative Negative HP CONVERSION Blood Urine Negative Negative HP CONVERSION Glucose, Negative Neg-30 HP CONVERSION Qualitative U mg/dL Ketones Negative Negative HP CONVERSION Leukocyte Negative Negative HP CONVERSION Esterase Urine Nitrite Urine Negative Negative HP CONVERSION pH Urine 5.0 5.0 - 8.0 HP CONVERSION Protein Urine Negative Neg - Trace HP CONVERSION mg/dL U Specific <=1.005 1.005 - HP CONVERSION [place] 1.030 Urobilinogen Negative Negative HP CONVERSION Urine Specimen Anatomical Collection Method Collection Time Receive d Time (Source) Location / / Volume Laterality Urine: 11/12/2013 10:38 11/12/2013 AM CDT 11:13 AM CDT Narrative HP CONVERSION - 11/12/2013 11:15 AM CDT Performed at [facility], [address] [place] [address] Jonh Phillips PA-C LAB_1 Performing Organization Address [facility] Phon e Number HP CONVERSION (ABNORMAL) WET PREP (11/12/2013 10:38 AM CDT) [facility] Method Time Signature WETPR White Many (A) HP CONVERSION Blood Cells WETPR Epithelial Many HP CONVERSION Cells WETPR Yeast None Seen HP CONVERSION WETPR None Seen HP CONVERSION Trichomonas WETPR Clue Cells Few HP CONVERSION Wet Prep Source Cervix/Va HP CONVERSION ginal: Specimen Anatomical Collection Method Collection Time Receive d Time (Source) Location / / Volume Laterality 11/12/2013 10:38 11/12/2013 AM CDT 11:13 AM CDT Narrative HP CONVERSION - 11/12/2013 11:16 AM CDT Performed at [facility], [address], [place] [address] Jonh Phillips PA-C LAB_1 Performing Organization Address [facility] Phon e Number HP CONVERSION Test (Urine) (11/12/2013 10:38 AM CDT) Analysis Performed At [facility] Time Signature Urine Negative HP CONVERSION Test Specimen Anatomical Collection Method Collection Time Receive d Time (Source) Location / / Volume Laterality 11/12/2013 10:38 11/12/2013 AM CDT 11:13 AM CDT Narrative HP CONVERSION - 11/12/2013 11:16 AM CDT Performed at [facility], [address], [place] [address] Jonh Phillips PA-C LAB_1 Performing Organization Address City/State/ZIP Code Phon e Number HP CONVERSION documented in this encounter Visit Diagnoses Diagnosis Dysuria - Primary Vaginal pruritus Pruritus of genital organs Bacterial vaginosis Vaginitis and vulvovaginitis, unspecifie d Anal fissure Triage Assessment Note - Simin Harris I RN - 11/12/2013 10:10 AM CDT Chief Complaint Patient presents with ??? Vaginal Discharge x 2 weeks using monostat x 3 days, no real improvement. documented in this encounter Care Teams Lip Of Shank Cutter Relationship Specialty Start Date End Date Needs Pcp, Assignment PCP - General 11/12/13 09/15/17 [place] [address] documented as of this encounter
--- OUTSIDE RECORDS SUMMARY | 2022-06-13 21:44 | XMS_ITS | Encounter Summary ---
:1975 Author Organization [employer] Address [address] [place] [address] Care Team Providers Name Role Phone Unavailable Primary Care Provider Unavailable Encounter Details Date Type Department Care Team Description 05/25/2013 Hospital Encounter [facility] [address], [facility] Marco Antonio [facility] [address] [facility] [address] [place], [place] [address] Social History Tobacco Use Types Packs/Day Years [...] Procedure Name Priority Date/Time Associated Comments Diagnosis HCG, QUANTITATIVE, Routine 08/07/2013 5:34 AM Res ults for this SERUM CLIENT CONSULTANT procedure ar e in the results section. URINALYSIS Routine 05/26/2013 1:15 AM Results f or this CDT procedure are i n the results section. URINE CULTURE Routine 05/26/2013 1:15 AM Results for this CDT procedure are i n the results section. documented in this encounter Results HCG, Quantitative, Serum (08/07/2013 5:34 AM CLIENT CONSULTANT) P athologist Signature HCG For <2 0 - 6 HP CONVERSION mIU/L Comment: ? Reference Ranges 0-1 week ? 5-50 1-2 weeks ?50-500 2-3 weeks ?100-5,000 3-4 weeks ?500-10,000 1-2 months ? 1,000-200,0 00 2-3 months ? 15,000-200, 000 2nd trimester ? - - - - 3rd trimester ? - - - - Tumor marker ? <5 Consider heterophile antibody interferen ce in women of child-bearing age if serum HCG is persis tently elevated to a mild degree over a period of several wee ks or months. Confirmation with a urine test or serum HCG by an alternate test method may be helpful. He terophile antibodies occur in 1% of the general population an d may interfere with any serum immunoassay (many common prote in, hormone, and tumor marker tests). Specimen Anatomical Collection Method Collection Time Receive d Time (Source) Location / / Volume Laterality 08/07/2013 5:34 AM 3 7:29 CLIENT CONSULTANT AM CLIENT CONSULTANT Daya [place] MD LAB_1 Performing Organization Address [facility] Phon e Number HP CONVERSION Urine Culture (05/26/2013 1:15 AM CDT) [facility] [employer] Method Time Signature Source Urine HP CONVERSION Site HP CONVERSION Urine Culture Mixed gram HP CONVERSION positive organisms. 10-50,000 cfu/mL Specimen (Source) Anatomical Collection Method Collection Time Re ceived Time Location / / Volume Laterality Urine: 05/26/2013 1:15 AM CDT Daya Galicia MD LAB_1 Performing Organization Address [facility] Phon e Number HP CONVERSION Urinalysis (05/26/2013 1:15 AM CDT) [facility] [employer] Method Time Signature Urine Type Cln catch HP CONVERSION Turbidity Clear Clear HP CONVERSION Color Colorless HP CONVERSION U BILI Negative Negative HP CONVERSION Blood Urine Negative Negative HP CONVERSION Glucose, Negative Neg-30 mg/dL HP CONVERSION Qualitative U Ketones Negative Negative HP CONVERSION Leukocyte Negative Negative HP CONVERSION Esterase Urine Nitrite Urine Negative Negative HP CONVERSION pH Urine 7.0 5.0 - 8.0 HP CONVERSION Protein Urine Negative Neg - Trace HP CONVERSION mg/dL U Specific 1.005 1.005 - HP CONVERSION [place] 1.030 Urobilinogen Negative Negative HP CONVERSION Urine Eu/dL Urine WBC None seen 0 - 4 /HPF HP CONVERSION Urine RBC None seen 0 - 2 /HPF HP CONVERSION Specimen Anatomical Collection Method Collection Time Receive d Time (Source) Location / / Volume Laterality 05/26/2013 1:15 AM 3 1:02 CDT PM CDT Daya Galicia MD LAB_1 Performing Organization Address City/State/ZIP Code Phon e Number HP CONVERSION documented in this encounter Visit Diagnoses Not on filedocumented in this encounter
--- OUTSIDE RECORDS SUMMARY | 2022-06-13 21:44 | XMS_ITS ---
:1975 Author Care Team Providers Name Role Phone TAPESTRY OTHER [phone] Allergies Code Code System Name Reaction Severity [...] at bedtime. Notes: Routine Standing Orders Per [facility] Protocol Problems Name Status Onset Date Source [...] of Prescription Braden Garcia NP, S: [address] [place] [address], Ph. Social History Tobacco Smoking Status Heavy Tobacco Smoker (1 pack per day) Vaccine List None recorded. Plan of Care Patient Instructions Infection control is important while in a congregant living facility, especially amid the COVID-19 pandemic. The following measures can help to mitigate the spread of infections: 1. Frequent hand washing with soap and w ater or hand chief contract officer. 2. Avoid touching your face. 3. Maintain [...]
--- OUTSIDE RECORDS SUMMARY | 2022-06-13 21:44 | XMS_ITS | Encounter Summary ---
:1975 Author Organization [facility] Address [address] [place] [address] Care Team Providers Name Role Phone Found, No Pcp MD Primary Care Provider Unavailable Reason for Visit Reason Comments EDEMA hands, lower legs and feet n oticed x3 days Encounter Details Date Type Department Care Team Description 05/24/2021 Office Visit [facility] Deion Sanabria Edema, un specified Hector Root PA-C type (Primary Dx) [address] [facility] [address] [place] [address] [place], [place] [phone] Social History Tobacco Use Types Packs/Day Years Used Date Smoking Tobacco: Some Days Smokeless Tobacco: Never Alcohol Use Standard Drinks/Week [...] Sign Reading Time Taken Comments Blood Pressure 122/97 05/24/2021 9:28 AM CDT Pulse 67 05/24/2021 9:28 AM CDT Temperature 37 ??C (98.6 ??F) 05/24/2021 9:28 AM CDT Respiratory Rate 20 05/24/2021 9:28 AM CDT Oxygen Saturation 99% 05/24/2021 9:28 AM CDT Inhaled Oxygen Concentration - - Weight - - Height - - Body Mass Index - - documented in this encounter Patient Instructions Patient InstructionsFoDeion saha PA-C - 05/24/2021 9:20 AM CDT -- Edema likely due to stopping water pill (chlorthalidone). Will refill script for 5 days to reduceswelling, follow up with your Primary Care Physician tomorrow. Monitor blood pressure daily. documented in this encounter Progress Notes Deion Serrato PA-C - 05/24/2021 9:20 AM CDT Chief Complaint Patient presents with ??? EDEMA hands, lower legs and feet noticed x3 days Key Peres is a 46 y.o.female presents to the Urgent Care for EDEMA (hands, lower legs and feet noticed x3 days) . Bilateral legs, ankles and knee edema 3 day(s) ago, symptoms gradually worsening. Pain present Yes; location bilater legs, ankles and knees, 9/10, Throbbing. Previous episodes or similar occurrence never. Any home remedies tried Yes, elevated. SUBJECTIVE: This is a 46 y.o. female who complains of hand, ankle, and neck swelling for the past three days. She states her rings do not fit, and her socks leave lopez on her ankles. She currently moved from [facility] to a facility in [facility]. She notes that she was taken of chlorthalidone while at the [facility], though does not know why. Review of chart does not show reason for discontinuation, either. She recently started trazodone also. She states her diastolic is typically lower than it is today. She denies history of cardiac disease. She has elevated her feet with little benefit. She has not changed diet significantly, and does not feel sodium intake has increased. She denies cough, SOB, or chest pain. Her PCP is in [facility]. OBJECTIVE: BP (!) 122/97 (BP Location: Right Arm, BP Cuff Size: Large) Pulse 67 Temp 98.6 ??F (37 ??C) (Tympanic) Resp 20 LMP 05/11/2021 (Within Days) SpO2 99% No Physical Exam Constitutional: She is well-developed, well-nourished, and in no distress. Pleasant. Cardiovascular: Normal rate and regular rhythm. Pulmonary/Chest: Effort normal and breath sounds normal. Neurological: She is alert. GCS score is 15. Skin: Edema of wrist, hand, ankles, feet, and neck. No erythema, duskiness, or warmth. Psychiatric: Mood and affect normal. ASSESSMENT / PLAN: 1. Edema, unspecified type - Will re-start chlorthalidone for short-term, and she will follow up with her PCP for ongoing care for edema. The facility person accompanying her also understands this plan, and will help facilitate communication tomorrow (Tuesday) with her PCP, and will ensure good monitoring of blood pressures for h ypotension. - chlorthalidone (HYGROTON) 25 MG tablet; Take 1 Tablet by mouth daily for 5 days. Dispense: 5 Tablet; Refill: 0 - continue supportive cares (rest, fluids, OTC pain and fever relievers as needed) - expect symptoms to improve in 1-3 days. Return to care if new onset or worsening symptoms, or if symptoms not improving as expected. Deion Serrato PA-C, 05/24/2021, 9:51 AM documented in this encounter Nursing Notes David Álvarez LPN - 05/24/2021 9:20 AM CDT Key Peres is a 46 y.o.female presents to the Urgent Care for EDEMA (hands, lower legs and feet noticed x3 days) . Bilateral legs, ankles and knee edema 3 day(s) ago, symptoms gradually worsening. Pain present Yes; location bilater legs, ankles and knees, 9/10, Throbbing. Previous episodes or similar occurrence never. Any home remedies tried Yes, elevated. documented in this encounter Plan of Treatment Not on filedocumented as of this encounter Visit Diagnoses Diagnosis Edema, unspecified type - Primary documented in this encounter Care Teams Spout Worker Relationship Specialty Start Date End Date Found, No Pcp, PCP - General 09/16/17 08/30/21 [address] [place] [address] documented as of this encounter
--- OUTSIDE RECORDS SUMMARY | 2022-06-13 21:44 | XMS_ITS | Encounter Summary ---
:1975 Author Organization [facility] Address [address] [place] [address] Care Team Providers Name Role Phone Needs Pcp, Assignment Primary Care Provider Encounter Details Date Type Department Care Team Description 10/16/2015 Notes/Orders CODING DEPT ONLY 5050 Needs Pcp, Assignment [facility] [place] [address] [address] Social History Tobacco Use Types Packs/Day Years [...] on filedocumented in this encounter Care Teams Materials And Processes Manager Relationship Specialty Start Date End Date Needs Pcp, Assignment PCP - General 11/12/13 09/15/17 [place] [address] documented as of this encounter
[2022-06-13 21:50] LABS: Chloride* 96 mmol/L (96-114); Potassium* 3.5 mmol/L (3.6-5.1); Sodium* 136 mmol/L (135-149)
[2022-06-13 21:53] LABS: Creatinine* 0.8 mg/dL (0.5-1.5); Estimated Glomerular Filt Rate 91 ml/min
[2022-06-13 21:54] LABS: Blood Urea Nitrogen* 9 mg/dL (5-24); Calcium* 9.2 mg/dL (8.4-10.6); Carbon Dioxide* 29 mmol/L (20-32); Glucose* 120 mg/dL (60-115)
[2022-06-13 21:56] LABS: Ammonia* < 9.0 umol/L (13.1-30.0); Ethanol* < 0.01 % (0.01-0.03)
[2022-06-13 21:58] LABS: C Reactive Protein* < 0.5 mg/dL (0.5-1.0)
[2022-06-13] MEDS: LORazepam 2 MG/ML inj 1 MG IM (23:12)
--- NOTE | 2022-06-13 23:12 | ED.NURSE ---
Addendum entered by Sd Gaspar RN 06/13/22 23:48: Seizure activity : pt kicked right leg that tossed right shoe across room. Pt head moved to left with right arm extended. Airway remained patent. Pt skin color remained normal in color, no signs of cyanosis. Original Note: during discharge, pt began to have seizure like activity. pt was sitting in wheelchair. MD was notified. No falls or physical traumatic injuries occurred to pt. pt was placed in bed, 3 person lift. ordered JANNIE Cotton for pt.
[2022-06-13 23:15] VITALS: PULSE 100; RESP 16; O2SAT 93
--- NOTE | 2022-06-13 23:39 | ED.NURSE ---
Pt O2 noted to drop to 82% with good waveform. Pt appearing to be sleeping curled up. Pt arousable to shaking and loud voice. 2L NC O2 applied to pt. Pt O2 increases to high ~90's% when roused. Pt continues to doze off, O2 desats when pt is asleep. When roused, O2 recovers. notified.
--- NOTE | 2022-06-13 23:48 | ED.NURSE ---
pt son left to get some food. Son name is Rajiv. phone number is [phone]. he stated to call when she is ready and he will pick her up.
[2022-06-14 00:30] VITALS: BP 125/52; PULSE 86; RESP 14; O2SAT 95
--- NOTE | 2022-06-14 00:59 | ED.NURSE ---
pt son arrived to transport pt home. no questions upon discharge. pt agreeable to go home, gave this RN high 5 with thanks for helping her.
== END 2022-06-14 00:59 | disposition home or self-care (01) ==
PROVIDERS: Emergency Provider Family Medicine; PCP Family Medicine
DX: G40.109 Localization-related (focal) (partial) symptomatic epilepsy and epileptic syndromes with simple partial seizures, not intractable, without status epilepticus (principal); F41.9 Anxiety disorder, unspecified; F43.0 Acute stress reaction
CPT/HCPCS: 36415; 70450; 80048; 82077; 82140; 85025; 86140; 99283; 99284; A9270; J2060

== ENCOUNTER 2022-06-16 16:52 | Outpatient (CLI) | payer MEDICARE, BC, SELFPAY ==
--- OUTSIDE RECORDS SUMMARY | 2022-06-18 09:28 | XMS_ITS | Encounter Summary ---
:1975 Author Organization [facility] Address [address] [place] [address] Care Team Providers Name Role Phone [facility] Unavailable [phone] Mar Alfaro DO Primary Care Provider Encounter [...] with No / Unsure 08/26/2021 3:30 PM COMMODITY BU[employer]ER someone who was confirmed or suspected to have Coronavirus / COVID-19? documented as of this encounter Plan of Treatment Not on filedocumented as of this encounter Visit Diagnoses Not on filedocumented in this encounter Additional Health Concerns Infection Onset Date Last Indicated Resolved Time COVID-19/Influenza Rule-Out 08/26/2021 08/26/202108/09 8:53 AM COMMODITY BU[employer]ER documented as of this encounter Care Teams Rag Shredder Relationship Specialty Start Date End Date [facility] PCP - Primary Care Clinic [address] [facility] [place] [id number] Mar Alfaro DO PCP - General Family Medicine 07/09/21 [address] [facility] [place] [address] documented as of this encounter
--- OUTSIDE RECORDS SUMMARY | 2022-06-18 09:28 | XMS_ITS | Encounter Summary ---
:1975 Author Organization [facility] Address [address] [place] [address] Care Team Providers Name Role Phone [facility], [facility] Unavailable [phone] Mar Alfaro DO Primary Care Provider Reason for Visit Reason Comments Leg swelling Encounter Details Date Type Department Care Team Description 07/09/2021 Emergency [facility] Alexa Aparicio MD Hospital Emergency [address] [facility] Department [address] [place] [address] [place], [place] [address] [phone] Social History Tobacco Use Types Packs/Day Years Used Date Smoking Tobacco: Every Day Cigarettes 0.3 Smokeless Tobacco: Never Alcohol Use Standard Drinks/Week Comments Yes 0 (1 standard drink = 0.6 oz pure alcoho l) social Sex Assigned at Date Recorded Not on file COVID-19 Exposure Response Date Recorded In the last month, have you been in contact with Yes 07/09/2021 7:23 AM PRODUCT/DEVICE TECHNOLOGIST someone who was confirmed or suspected to have Coronavirus / COVID-19? documented as of this encounter Last Filed Vital Signs Vital Sign Reading Time Taken Comments Blood Pressure 150/107 07/09/2021 11:30 AM PRODUCT/DEVICE TECHNOLOGIST Pulse 66 07/09/2021 11:30 AM PRODUCT/DEVICE TECHNOLOGIST Temperature 36.8 ??C (98.2 ??F) 07/09/2021 11:30 AM PRODUCT/DEVICE TECHNOLOGIST Respiratory Rate 17 07/09/2021 11:30 AM PRODUCT/DEVICE TECHNOLOGIST Oxygen Saturation 93% 07/09/2021 11:30 AM PRODUCT/DEVICE TECHNOLOGIST Inhaled Oxygen Concentration - - Weight - - Height - - Body Mass Index - - documented in this encounter Discharge Instructions Discharge InstructionsShharvey Aparicio MD - 07/09/2021 11:40 AM PRODUCT/DEVICE TECHNOLOGIST Stop taking your amlodipine. Increase your Chlorthalidone to 50 mg daily. UCT/DEVICE TECHNOLOGIST AttachmentsThe following attachments cannot be sent through Care Everywhere.Leg Edema (AfterCare(R) Instructions(ER/ED)) (Barbadian)documented in this encounter Medications at Time of [...] subscriber number. States that she will call. UCT/DEVICE TECHNOLOGIST Tamika Mckeon RN - 07/09/2021 11:42 AM CST Patient discharged from the ED, states she has a ride home. AVS reviewed with patient, verbalized understanding. UCT/DEVICE TECHNOLOGIST Tamika Mckeon RN - 07/09/2021 10:34 AM CST Patient up to BS to void. Now resting on cart. Call light within reach, able to make needs known. UCT/DEVICE TECHNOLOGIST Tamika Mckeon RN - 07/09/2021 10:06 AM CST US at bedside. UCT/DEVICE TECHNOLOGIST Alexa Aparicio MD - 07/09/2021 8:48 AM [...] via telehealth as she is originally from [place] and currently in a treatment facility. She [...] accurate. Alexa Aparicio MD 8:48 AM 07/09/21 [facility] EMERGENCY DEPARTMENT UCT/DEVICE TECHNOLOGIST Winnie Rodriguez RN - 07/09/2021 8:36 AM CST Pt additionally states multiple people at have covid. Tested negative 2 days ago. Would like to be re-tested. UCT/DEVICE TECHNOLOGIST Winnie Rodriguez RN - 07/09/2021 7:24 AM CST Pt arrives via [facility] for evaluation of leg swelling. Pt resides at a , hx alcohol abuse. Walked out to ambulance stretcher. Pt states she noticed 2 days ago bilateral ankle/feet swelling . Worsened overnight and now hands mildly swollen. Wondering if her medication is causing. UCT/DEVICE TECHNOLOGIST documented in this encounter Plan of Treatment Not on filedocumented as of this encounter Procedures Procedure Name Priority Date/Time Associated Comments Diagnosis US VENOUS EXTREM LOW STAT 07/09/2021 11:13 Res ults for this BILAT AM PRODUCT/DEVICE TECHNOLOGIST procedure are i n the results section. SARS-COV-2 DETECTION STAT 07/09/2021 9:05 AM R esults for this BY ELIZABETH PCR PRODUCT/DEVICE TECHNOLOGIST procedure are i n the results section. CBC/DIFF STAT 07/09/2021 9:03 AM Results f or this PRODUCT/DEVICE TECHNOLOGIST procedure are i n the results section. URINE MACROSCOPIC Routine 07/09/2021 7:52 AM Resu lts for this (POCT) DIP PRODUCT/DEVICE TECHNOLOGIST procedure are i n the results section. BNP-BTYPE NA PEPTIDE STAT Add-on 07/09/2021 7:36 AM R esults for this PRODUCT/DEVICE TECHNOLOGIST procedure are i n the results section. EXTRA TUBE-EDTA STAT 07/09/2021 7:30 AM PRODUCT/DEVICE TECHNOLOGIST EXTRA TUBE-BLOOD STAT 07/09/2021 7:30 AM BANK PRODUCT/DEVICE TECHNOLOGIST EXTRA TUBE-SST (LAB STAT 07/09/2021 7:30 AM USE ONLY) PRODUCT/DEVICE TECHNOLOGIST LIVER PROFILE STAT Add-on 07/09/2021 7:30 AM Results for this PRODUCT/DEVICE TECHNOLOGIST procedure are i n the results section. BASIC METAB PROFILE STAT Add-on 07/09/2021 7:30 AM Re sults for this PRODUCT/DEVICE TECHNOLOGIST procedure are i n the results section. EXTRA TUBE PST STAT 07/09/2021 7:30 AM PRODUCT/DEVICE TECHNOLOGIST documented in this encounter Results US VENOUS LOW BILAT (07/09/2021 11:13 AM PRODUCT/DEVICE TECHNOLOGIST) Anatomical Region Laterality Modality Extremity Ultrasound Specimen (Source) Anatomical Collection Method Collection Time Re ceived Time Location / / Volume Laterality 07/09/2021 10:33 AM PRODUCT/DEVICE TECHNOLOGIST Impressions 07/09/2021 11:32 AM PRODUCT/DEVICE TECHNOLOGIST IMPRESSION: 1. ??No deep venous thrombosis. REPORT SIGNED BY DR. Jonh Martin Narrative 07/09/2021 11:32 AM PRODUCT/DEVICE TECHNOLOGIST EXAM: US VENOUS EXTREM LOW BILAT DATE: [...] ORDERABLE (ABNORMAL) COVID-19 (PUI) (07/09/2021 9:05 AM PRODUCT/DEVICE TECHNOLOGIST) Analysis Performed At Patho logist Time Signature SARS-CoV-2 SARS-CoV-2 SARS-CoV-2 FAN ELIZABETH 07/09/2021 [facility] RNA by PCR RNA Detected RNA Not 6800 2:[address] [facility] (A) Detected [facility] Specimen (Source) Anatomical Location / Collection Collection Ranjith e Received Time Laterality Method / Volume Nasopharynx NASOPHARYNGEAL SWAB / 07/09/2021 9:05 09/2020 Unknown AM PRODUCT/DEVICE TECHNOLOGIST 9:12 AM PRODUCT/DEVICE TECHNOLOGIST Alexa Aparicio MD MICROBIOLOGY ORDERABLE Performing Organization Address City/State/ZIP Code Phon e Number [facility] [address] [place] [address] LABORATORY (ABNORMAL) CBC / Diff (07/09/2021 9:03 AM PRODUCT/DEVICE TECHNOLOGIST) Patholo gist Method Time Signature WBC 4.5 4.3 - 10.8 07/09/2021 [facility] K/uL 9:17 AM [facility] RBC 4.42 4.20 - 07/09/2021 [facility] 5.40 M/uL 9:17 AM [facility] HEMOGLOBIN 12.2 12.0 - 07/09/2021 [facility] 16.0 gm/dL 9:17 AM PRODUCT/DEVICE TECHNOLOGIST HEALTH LABORATORY HEMATOCRIT 38.3 36.0 - 07/09/2021 [facility] 48.0 % 9:17 AM PRODUCT/DEVICE TECHNOLOGIST HEALTH LABORATORY MCV 87 80 - 100 07/09/2021 [facility] fl 9:17 AM PRODUCT/DEVICE TECHNOLOGIST HEALTH LABORATORY MCH 28 27 - 33 pg 07/09/2021 [facility] 9:17 AM PRODUCT/DEVICE TECHNOLOGIST HEALTH LABORATORY MCHC 32 (L) 33 - 36 07/09/2021 [facility] gm/dL 9:17 AM [facility] LABORATORY RDW 15.9 (H) 11.5 - 07/09/2021 [facility] 14.5 % 9:17 AM PRODUCT/DEVICE TECHNOLOGIST HEALTH LABORATORY PLATELET COUNT 267 150 - 400 07/09/2021 [facility] K/UL 9:17 AM PRODUCT/DEVICE TECHNOLOGIST [facility] LABORATORY MPV 10.9 6.5 - 12 07/09/2021 [facility] 9:17 AM PRODUCT/DEVICE TECHNOLOGIST HEALTH LABORATORY PMN % 55.0 % 07/09/2021 [facility] 9:17 AM [facility] LABORATORY IG% 0.2 <=1.0 % 07/09/2021 [facility] 9:17 AM PRODUCT/DEVICE TECHNOLOGIST HEALTH LABORATORY LYMPH % 30.7 % 07/09/2021 [facility] 9:17 AM PRODUCT/DEVICE TECHNOLOGIST HEALTH LABORATORY MONO % 10.8 % 07/09/2021 [facility] 9:17 AM PRODUCT/DEVICE TECHNOLOGIST HEALTH LABORATORY EOS % 2.9 % 07/09/2021 [facility] 9:17 AM PRODUCT/DEVICE TECHNOLOGIST HEALTH LABORATORY BASO % 0.4 % 07/09/2021 [facility] 9:17 AM PRODUCT/DEVICE TECHNOLOGIST HEALTH LABORATORY PMN ABSOLUTE 2.49 1.80 - 07/09/2021 [facility] 7.80 K/uL 9:17 AM PRODUCT/DEVICE TECHNOLOGIST HEALTH LABORATORY IG ABSOLUTE 0.01 K/uL 07/09/2021 [facility] 9:17 AM PRODUCT/DEVICE TECHNOLOGIST HEALTH LABORATORY LYMPH ABSOLUTE 1.39 1.00 - 07/09/2021 [facility] 4.00 K/uL 9:17 AM PRODUCT/DEVICE TECHNOLOGIST HEALTH LABORATORY MONO ABSOLUTE 0.49 0.00 - 07/09/2021 [facility] 1.00 K/uL 9:17 AM PRODUCT/DEVICE TECHNOLOGIST HEALTH LABORATORY EOS ABSOLUTE 0.13 0.00 - 07/09/2021 [facility] 0.45 K/uL 9:17 AM PRODUCT/DEVICE TECHNOLOGIST HEALTH LABORATORY BASO ABSOLUTE 0.02 0.00 - 07/09/2021 [facility] 0.20 K/uL 9:17 AM PRODUCT/DEVICE TECHNOLOGIST HEALTH LABORATORY NUCL RBC % 0.0 0.0 - 0.0 07/09/2021 [facility] /100 WBC 9:17 AM PRODUCT/DEVICE TECHNOLOGIST HEALTH LABORATORY NUCL RBC 0.00 0.00 - 07/09/2021 [facility] ABSOLUTE 0.00 K/uL 9:17 AM PRODUCT/DEVICE TECHNOLOGIST HEALTH LABORATORY Specimen Anatomical Collection Method Collection Time Receive d Time (Source) Location / / Volume Laterality Blood 07/09/2021 9:03 AM 9:12 PRODUCT/DEVICE TECHNOLOGIST AM PRODUCT/DEVICE TECHNOLOGIST Maggie Chambers MD HEMATOLOGY ORDERABLE Performing Organization Address City/State/ZIP Code Phon e Number [facility] [address] [place] [address] LABORATORY (ABNORMAL) Urine Macroscopic (POCT) Dip (07/09/2021 7:52 AM PRODUCT/DEVICE TECHNOLOGIST) [facility] Method Time Signature PH URINE 5.5 4.5 - 8.0 07/09/2021 [facility] 7:50 AM PRODUCT/DEVICE TECHNOLOGIST HEALTH LABORATORY SP.GRAVITY, 1.025 1.015 - 07/09/2021 [facility] UA 1.025 7:50 AM [facility] LABORATORY GLUCOSE, UA Negative Negative 07/09/2021 [facility] mg/dL 7:50 AM [facility] LABORATORY KETONE, UA Negative Negative 07/09/2021 [facility] mg/dL 7:50 AM [facility] LABORATORY OCCULT BLOOD, Large (A) Negative, 07/09/2021 [facility] UA Trace, 7:50 AM [facility] TRACE-LYSED, LABORATORY TRACE-INTACT BILIRUBIN, UA Negative Negative 07/09/2021 [facility] 7:50 AM [facility] LABORATORY UROBILINOGEN, 0.2 0.2 - 1.0 07/09/2021 [facility] UA EU/dL 7:50 AM [facility] LABORATORY NITRITE, UA Negative Negative 07/09/2021 [facility] 7:50 AM [facility] LABORATORY WBC ESTERASE, Negative Negative, 07/09/2021 [facility] UA Trace 7:50 AM [facility] LABORATORY PROTEIN, UA Negative Negative, 07/09/2021 [facility] Trace mg/dL 7:50 AM [facility] LABORATORY Specimen Anatomical Collection Method Collection Time Receive d Time (Source) Location / / Volume Laterality Urine specimen 07/09/2021 7:52 AM 021 7:50 (specimen) PRODUCT/DEVICE TECHNOLOGIST AM PRODUCT/DEVICE TECHNOLOGIST [facility] LAB POINT OF CARE TEST RESUL TS Performing Organization Address City/[facility]/ZIP Code Phon e Number [address] [place] [address] LABORATORY BNP-BType Na Peptide (07/09/2021 7:36 AM PRODUCT/DEVICE TECHNOLOGIST) P athologist Signature BNP-BTYPE NA 63 <=100 [facility] XPT 07/09/2021 [facility] PEPTIDE pg/mL [facility] 8:32 AM [facility] LABORATORY Specimen Anatomical Collection Method Collection Time Receive d Time (Source) Location / / Volume Laterality Plasma specimen 07/09/2021 7:36 AM 2020 7:48 (specimen) PRODUCT/DEVICE TECHNOLOGIST AM PRODUCT/DEVICE TECHNOLOGIST Maggie Chambers MD CHEMISTRY ORDERABLE Performing Organization Address City/[facility]/ZIP [facility] Phon e Number [address] [place] [address] LABORATORY (ABNORMAL) Basic Metab Profile (07/09/2021 7:30 AM [facility]) Analysis Performed At Patho logist Time Signature SODIUM 144 136 - 145 07/09/2021 [facility] mmol/L 8:28 AM [facility] LABORATORY POTASSIUM 3.5 3.5 - 5.1 07/09/2021 [facility] mmol/L 8:28 AM [facility] LABORATORY CHLORIDE 112 98 - 112 07/09/2021 [facility] mmol/L 8:28 AM [facility] LABORATORY CARBON DIOXIDE 26 21 - 32 07/09/2021 [facility] mmol/L 8:28 AM [facility] LABORATORY BUN (UREA 8 7 - 24 07/09/2021 [facility] NITRO) mg/dL 8:28 AM [facility] LABORATORY CREATININE 0.97 0.55 - 07/09/2021 [facility] 1.02 mg/dL 8:28 AM [facility] LABORATORY EST GFR >60.00 >60.00 07/09/2021 [facility] (CKD-EPI) mL/min 8:28 AM [facility] LABORATORY EST GFR IF >60.00 >60.00 07/09/2021 [facility] AM mL/min 8:28 AM [facility] LABORATORY GLUCOSE 98 74 - 106 07/09/2021 [facility] mg/dL 8:28 AM [facility] LABORATORY CALCIUM, SERUM 8.4 (L) 8.5 - 10.1 07/09/2021 [facility] L mg/dL 8:28 AM [facility] LABORATORY ANION GAP 6.0 0.0 - 15.0 07/09/2021 [facility] mmol/L 8:28 AM [facility] LABORATORY Specimen Anatomical Collection Method Collection Time Receive d Time (Source) Location / / Volume Laterality Blood 07/09/2021 7:30 AM 7:43 PRODUCT/DEVICE TECHNOLOGIST AM PRODUCT/DEVICE TECHNOLOGIST Maggie Chambers MD CHEMISTRY ORDERABLE Performing Organization Address City/State/ZIP Code Phon e Number [facility] [address] [place] [address] [phone] LABORATORY (ABNORMAL) Liver Profile (07/09/2021 7:30 AM [facility]) P athologist Signature ALT 20 12 - 68 07/09/2021 [facility] IU/L 8:31 AM [facility] LABORATORY ALKALINE 58 45 - 117 07/09/2021 [facility] P'TASE IU/L 8:31 AM [facility] LABORATORY AST (SGOT) 10 (L) 12 - 37 07/09/2021 [facility] IU/L 8:31 AM [facility] LABORATORY PROTEIN TOTAL 6.0 (L) 6.4 - 8.2 07/09/2021 [facility] g/dL 8:31 AM [facility] LABORATORY ALBUMIN 3.1 (L) 3.4 - 5.0 07/09/2021 [facility] g/dL 8:31 AM [facility] LABORATORY BILIRUBIN-DIRE 0.08 0.05 - 07/09/[address] [facility] [address] 0.24 mg/dL 8:31 AM [facility] LABORATORY BILIRUBIN-TOTA 0.3 0.2 - 1.0 07/09/2021 [facility] L mg/dL 8:31 AM [facility] LABORATORY Specimen Anatomical Collection Method Collection Time Receive d Time (Source) Location / / Volume Laterality Blood 07/09/2021 7:30 AM 7:43 PRODUCT/DEVICE TECHNOLOGIST AM PRODUCT/DEVICE TECHNOLOGIST Maggie Chambers MD CHEMISTRY ORDERABLE Performing Organization Address City/[facility]/ZIP [facility] Phon e Number [address] [address] LABORATORY Extra Tube PST (Lab Use Only) (07/09/2021 7:30 AM PRODUCT/DEVICE TECHNOLOGIST) Specimen Anatomical Collection Method Collection Time Receive d Time (Source) Location / / Volume Laterality Blood 07/09/2021 7:30 AM 7:40 PRODUCT/DEVICE TECHNOLOGIST AM PRODUCT/DEVICE TECHNOLOGIST Maggie Chambers MD CHEMISTRY ORDERABLE Performing Organization Address City/State/ZIP [facility] Phon e Number [address] [place] [address] LABORATORY Extra Tube-SST (Lab Use Only) (07/09/2021 7:30 AM PRODUCT/DEVICE TECHNOLOGIST) Specimen Anatomical Collection Method Collection Time Receive d Time (Source) Location / / Volume Laterality Blood 07/09/2021 7:30 AM 7:43 PRODUCT/DEVICE TECHNOLOGIST AM PRODUCT/DEVICE TECHNOLOGIST Maggie Chambers MD CHEMISTRY ORDERABLE Performing Organization Address City/[facility]/ZIP [facility] Phon e Number [facility] [address] [place] [address] LABORATORY Extra Tube-EDTA (Lab Use Only) (07/09/2021 7:30 AM PRODUCT/DEVICE TECHNOLOGIST) Specimen Anatomical Collection Method Collection Time Receive d Time (Source) Location / / Volume Laterality Blood 07/09/2021 7:30 AM 7:43 PRODUCT/DEVICE TECHNOLOGIST AM PRODUCT/DEVICE TECHNOLOGIST Maggie Chambers MD HEMATOLOGY ORDERABLE Performing Organization Address City/[facility] Phon e Number [address] [address] [phone] LABORATORY Extra Tube-Blood Bank (Lab Use Only) (07/09/2021 7:30 AM PRODUCT/DEVICE TECHNOLOGIST) Specimen Anatomical Collection Method Collection Time Receive d Time (Source) Location / / Volume Laterality Blood 07/09/2021 7:30 AM 7:44 PRODUCT/DEVICE TECHNOLOGIST AM PRODUCT/DEVICE TECHNOLOGIST Maggie Chambers MD BLOOD BANK ORDERABLE Performing Organization Address [facility] Phon e Number [address] [phone] LABORATORY documented in this encounter Visit Diagnoses Diagnosis Edema, unspecified type - Primary documented in this encounter Administered Medications Inactive Administered Medications - up to 3 most recent administrations Medication Order MAR Action Action Date Dose Rate Site calcium gluconate injection 1 g Given 07/09/2021 9:08 AM PRODUCT/DEVICE TECHNOLOGIST 1 g 1 g, Intravenous, ONCE, 1 dose, On Sole 07/09/21 at 0900 furosemide (PF) (LASIX) injection 40 mg Given 07/09/2021 9:09 AM PRODUCT/DEVICE TECHNOLOGIST 40 mg 40 mg, Intravenous, ONCE, 1 dose, On Sole 07/09/21 at 0900 documented in this encounter Active and Recently Administered Medications Times are shown in PRODUCT/DEVICE TECHNOLOGIST. Scheduled Medication Order 07/07/2021 07/08/2021 07/09/2021 calcium [...] Rule-Out 07/09/2021 07/09/2021 07/09/2021 2:4 9 PM PRODUCT/DEVICE TECHNOLOGIST documented as of this encounter Care Teams Technical Laboratory Asst Relationship Specialty Start Date End Date [facility] PCP - Primary Care Clinic [address] [place] [address] [address] [place] [address] Mar Alfaro DO PCP - General Family Medicine 07/09/21 [address] [place] [address] documented as of this encounter
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
--- OUTSIDE RECORDS SUMMARY | 2022-06-18 09:28 | XMS_ITS | Encounter Summary ---
:1975 Author Organization [facility] Address [address] [place] [address] Care Team Providers Name Role Phone [facility] Unavailable [phone] Mar Alfaro DO Primary Care Provider Encounter [...] in contact with Yes 07/09/2021 7:23 AM ANVIL SEATING PRESS OPERATOR someone who was confirmed or suspected to have Coronavirus / COVID-19? documented as of this encounter Plan of Treatment Not on filedocumented as of this encounter Visit Diagnoses Not on filedocumented in this encounter Additional Health Concerns Infection Onset Date Last Indicated Resolved Time COVID-19 Rule-Out 07/09/2021 07/09/2021 07/09/2021 2:4 9 PM ANVIL SEATING PRESS OPERATOR COVID-19 07/09/2021 07/09/2021 08/08/2021 2:47 AM ANVIL SEATING PRESS OPERATOR documented as of this encounter Care Teams Casing Soaker Relationship Specialty Start Date End Date [facility] PCP - Primary Care Clinic [address] [place] [phone] Mar Alfaro DO PCP - General Family Medicine 07/09/[address] [place] [address] [address] documented as of this encounter
--- OUTSIDE RECORDS SUMMARY | 2022-06-18 09:28 | XMS_ITS ---
:1975 Author Care Team Providers Name Role Phone TAPESTRY OTHER [phone] Allergies Code Code System Name Reaction Severity [...] at bedtime. Notes: Routine Standing Orders Per [facility] Protocol Problems Name Status Onset [...] of Prescription Braden Garcia NP, S: [address] [place] [address], Ph. Social History Tobacco Smoking Status Heavy Tobacco Smoker (1 pack per day) Vaccine List None recorded. Plan of Care Patient Instructions Infection control is important while in a congregant living facility, especially amid the COVID-19 pandemic. The following measures can help to mitigate the spread of infections: 1. Frequent hand washing with soap and w ater or hand finish photographer. 2. Avoid touching your face. 3. Maintain [...]
--- OUTSIDE RECORDS SUMMARY | 2022-06-18 09:28 | XMS_ITS | Encounter Summary ---
:1975 Author Organization [facility] Address [address] [place] [address] Care Team Providers Name Role Phone [facility], [facility] Unavailable [phone] Mar Alfaro DO Primary Care Provider Reason for Visit Reason Comments Confusion memory loss Inpatient Admission Specialty Diagnoses / Procedures Referred By Contact Refer red To Contact Diagnoses Seizure (HCC) Referral ID Status Reason Start Date Expiration Date Visits Requ ested Visits Authorized [id number] 1 1 Encounter Details Date Type Department Care Team Description 08/25/2021 Emergency [facility] Shivam Carrillo MD Hospital Emergency [address] Department [address] [place] [address] [place] [address] [phone] Social History Tobacco Use Types Packs/Day Years [...] with No / Unsure 08/25/2021 4:25 PM FLIGHT TEST SUPERVISOR someone who was confirmed or suspected to have Coronavirus / COVID-19? documented as of this encounter Last Filed Vital Signs Vital Sign Reading Time Taken Comments Blood Pressure 118/47 08/25/2021 10:31 PM FLIGHT TEST SUPERVISOR Pulse 78 08/25/2021 10:31 PM FLIGHT TEST SUPERVISOR Temperature 36.9 ??C (98.4 ??F) 08/25/2021 10:31 PM FLIGHT TEST SUPERVISOR Respiratory Rate 15 08/25/2021 10:31 PM FLIGHT TEST SUPERVISOR Oxygen Saturation 100% 08/25/2021 10:31 PM FLIGHT TEST SUPERVISOR Inhaled Oxygen Concentration - - Weight - - Height - - Body Mass Index - - documented in this encounter Discharge Instructions Discharge InstructionsEzra Carrillo MD - 08/25/2021 10:26 PM CST 1. Follow-up with primary care physician for medication review. Until that time keep a close watch on your medications. HT TEST SUPERVISOR documented in this encounter Medications at Time [...] remember names of other pts in facility. [place] anxious. Denies dizzines, headache. hand grasp equal, no facial droop. HT TEST SUPERVISOR Ezra Carrillo MD - 08/25/2021 9:02 PM CST CHIEF COMPLAINT: Confusion HPI: Initial history obtained at 9:02 PM 08/25/21. History is limited secondary to the patient's confusion. History provided by the patient and the patient's housekeeper head. Key Peres is a 46 y.o. female [...] SOCIAL HISTORY: The patient presents with her housekeeper head. The patient resides at a sober living [...] accurate. Ezra Carrillo MD 9:02 PM 08/25/21 [facility] HT TEST SUPERVISOR Dary Ryan - 08/25/2021 4:27 PM CST Pt states she has severe mental issues from a TBI. states she has severe forgetfulness and feels lost sometimes. Reports today her memory issues seem worse and have all day since waking up this morning. Denies being suicidal or homicidal. History of depression and anxiety. Denies any new trauma. Pt moving all extremities. HT TEST SUPERVISOR documented in this encounter Plan of Treatment Not on filedocumented as of this encounter Procedures Procedure Name Priority Date/Time Associated Comments Diagnosis MICROSCOPIC UA ONLY STAT 08/25/2021 9:29 PM Re sults for this FLIGHT TEST SUPERVISOR procedure are i n the results section. BASIC METAB PROFILE STAT 08/25/2021 9:13 PM Re sults for this FLIGHT TEST SUPERVISOR procedure are i n the results section. CBC/DIFF STAT 08/25/2021 9:13 PM Results f or this FLIGHT TEST SUPERVISOR procedure are i n the results section. documented in this encounter Results (ABNORMAL) UA - micro (Lab Only) (08/25/2021 9:29 PM FLIGHT TEST SUPERVISOR) Patholo gist Method Time Signature RBC-UA Occasional None 08/25/2021 [facility] Seen, 10:02 PM [facility] [[email or web address] HEALTH Occasiona LABORATORY l, 1-2 /hpf WBC-UA MICRO Occasional None 08/25/2021 [facility] Seen, 10:02 PM [facility] Occasiona LABORATORY l, Few, 1-4 /hpf BACTERIA Present (A) Absent, 08/25/2021 [facility] None Seen 10:02 PM [facility] LABORATORY SQUAM Many (A) None Seen 08/25/2021 [facility] EPITHELIAL /lpf 10:02 PM [facility] LABORATORY Specimen Anatomical Collection Method Collection Time Receive d Time (Source) Location / / Volume Laterality Urine specimen URINE SPECIMEN / 08/25/2021 9:29 PM 9:34 (specimen) Unknown FLIGHT TEST SUPERVISOR PM FLIGHT TEST SUPERVISOR Ezra Carrillo MD URINE ORDERABLE Performing Organization Address City/State/ZIP Code Phon e Number [facility] [address] [place] [address] LABORATORY (ABNORMAL) Basic Metabolic Profile (08/25/2021 9:13 PM FLIGHT TEST SUPERVISOR) athologist Signature SODIUM 138 136 - 145 [facility] 08/25/2021 [facility] mmol/L ANALYZER 10:02 PM [facility] LABORATORY POTASSIUM 3.9 3.4 - 5.1 [facility] 08/25/2021 [facility] mmol/L ANALYZER 10:02 PM [facility] LABORATORY Comment: Interpret with caution, specime n slightly hemolyzed. Results may be affected CHLORIDE 103 98 - 108 [facility] 08/25/2021 10:02 [facility] mmol/L ANALYZER PM [facility] LABORATORY CARBON DIOXIDE 28 20 - 31 [facility] 08/25/2021 10:02 [facility] mmol/L ANALYZER PM [facility] LABORATORY BUN (UREA NITRO) 8 (L) 9 - 23 mg/dL [facility] 08/25/2021 10:02 [facility] ANALYZER PM FLIGHT TEST SUPERVISOR HEALTH LABORATORY CREATININE <0.10 (L) 0.50 - 1.00 [facility] 08/25/2021 10:02 [facility] mg/dL ANALYZER PM [facility] [[email or web address] HEALTH LABORATORY Comment: Unable to calculate EGFR due to low creatinine result. GLUCOSE 103 74 - 106 [facility] 08/25/2021 10:02 [facility] L mg/dL ANALYZER PM [facility] [[email or web address] HEALTH LABORATORY CALCIUM, SERUM 10.1 8.7 - 10.4 [facility] 08/25/2021 10:02 [facility] mg/dL ANALYZER PM [facility] [[email or web address] HEALTH LABORATORY ANION GAP 7.0 0.0 - 15.0 [facility] 08/25/2021 10:02 [facility] mmol/L ANALYZER PM [facility] [[email or web address] HEALTH LABORATORY Specimen Anatomical Collection Method Collection Time Receive d Time (Source) Location / / Volume Laterality Blood 08/25/2021 9:13 PM 9:21 FLIGHT TEST SUPERVISOR PM FLIGHT TEST SUPERVISOR Ezra Carrillo MD CHEMISTRY ORDERABLE Performing Organization Address City/State/ZIP Code Phon e Number [facility] [address] [place] [address] LABORATORY (ABNORMAL) CBC w/diff (08/25/2021 9:13 PM FLIGHT TEST SUPERVISOR) [facility] gist Method Time Signature WBC 9.3 4.3 - 10.8 08/25/2021 [facility] K/uL 9:25 PM [facility] LABORATORY RBC 5.42 (H) 4.20 - 08/25/2021 [facility] 5.40 M/uL 9:25 PM [facility] LABORATORY HEMOGLOBIN 15.0 12.0 - 08/25/2021 [facility] 16.0 gm/dL 9:25 PM [facility] LABORATORY HEMATOCRIT 45.7 36.0 - 08/25/2021 [facility] 48.0 % 9:25 PM [facility] LABORATORY MCV 84 80 - 100 08/25/2021 [facility] fl 9:25 PM [facility] LABORATORY MCH 28 27 - 33 pg 08/25/2021 [facility] 9:25 PM [facility] LABORATORY MCHC 33 33 - 36 08/25/2021 [facility] gm/dL 9:25 PM [facility] LABORATORY RDW 15.0 (H) 11.5 - 08/25/2021 [facility] 14.5 % 9:25 PM FLIGHT TEST SUPERVISOR HEALTH LABORATORY PLATELET COUNT 380 150 - 400 08/25/2021 [facility] K/UL 9:25 PM FLIGHT TEST SUPERVISOR HEALTH LABORATORY MPV 10.6 6.5 - 12 08/25/2021 [facility] 9:25 PM FLIGHT TEST SUPERVISOR [facility] LABORATORY PMN % 68.8 % 08/25/2021 [facility] 9:25 PM [facility] LABORATORY IG% 0.2 <=1.0 % 08/25/2021 [facility] 9:25 PM FLIGHT TEST SUPERVISOR HEALTH LABORATORY LYMPH % 24.1 % 08/25/2021 [facility] 9:25 PM FLIGHT TEST SUPERVISOR HEALTH LABORATORY MONO % 5.4 % 08/25/2021 [facility] 9:25 PM FLIGHT TEST SUPERVISOR [facility] LABORATORY EOS % 0.9 % 08/25/2021 [facility] 9:25 PM FLIGHT TEST SUPERVISOR [facility] LABORATORY BASO % 0.6 % 08/25/2021 [facility] 9:25 PM FLIGHT TEST SUPERVISOR HEALTH LABORATORY PMN ABSOLUTE 6.43 1.80 - 08/25/2021 [facility] 7.80 K/uL 9:25 PM FLIGHT TEST SUPERVISOR HEALTH LABORATORY IG ABSOLUTE 0.02 K/uL 08/25/2021 [facility] 9:25 PM FLIGHT TEST SUPERVISOR HEALTH LABORATORY LYMPH ABSOLUTE 2.25 1.00 - 08/25/2021 [facility] 4.00 K/uL 9:25 PM FLIGHT TEST SUPERVISOR HEALTH LABORATORY MONO ABSOLUTE 0.50 0.00 - 08/25/2021 [facility] 1.00 K/uL 9:25 PM FLIGHT TEST SUPERVISOR HEALTH LABORATORY EOS ABSOLUTE 0.08 0.00 - 08/25/2021 [facility] 0.45 K/uL 9:25 PM FLIGHT TEST SUPERVISOR HEALTH LABORATORY BASO ABSOLUTE 0.06 0.00 - 08/25/2021 [facility] 0.20 K/uL 9:25 PM [facility] LABORATORY NUCL RBC % 0.0 0.0 - 0.0 08/25/2021 [facility] /100 WBC 9:25 PM FLIGHT TEST SUPERVISOR [facility] LABORATORY NUCL RBC 0.00 0.00 - 08/25/2021 [facility] ABSOLUTE 0.00 K/uL 9:25 PM FLIGHT TEST SUPERVISOR HEALTH LABORATORY Specimen Anatomical Collection Method Collection Time Receive d Time (Source) Location / / Volume Laterality Blood 08/25/2021 9:13 PM 9:21 FLIGHT TEST SUPERVISOR PM FLIGHT TEST SUPERVISOR Ezra Carrillo MD HEMATOLOGY ORDERABLE Performing Organization Address City/State/ZIP Code Phon e Number [facility] [address] [address] LABORATORY documented in this encounter Visit Diagnoses Diagnosis Confusion - Primary Unspecified psychosis documented in this encounter Care Teams Patch Sander Relationship Specialty Start Date [facility] [address] [place] [address] Mar Alfaro DO PCP - General Family Medicine 07/09/21 [address] [place] [address] documented as of this encounter
--- OUTSIDE RECORDS SUMMARY | 2022-06-18 09:28 | XMS_ITS | Clinical Summary ---
:[address] [facility] Address [address] [place] [address] Care Team Providers Name Role Phone [facility], [facility] Unavailable [phone] Mar Alfaro DO Primary Care Provider Allergies [...] Comments Blood Pressure 138/86 08/29/2021 7:59 AM EMBOSSER APPRENTICE Pulse 89 08/29/2021 7:59 AM EMBOSSER APPRENTICE Temperature 37 ??C (98.6 ??F) 08/29/2021 7:59 AM EMBOSSER APPRENTICE Respiratory Rate 18 08/29/2021 7:59 AM EMBOSSER APPRENTICE Oxygen Saturation 96% 08/29/2021 7:59 AM EMBOSSER APPRENTICE Inhaled Oxygen Concentration - - Weight 104 kg (229 lb 3.2 oz) 08/27/2021 3:37 PM EMBOSSER APPRENTICE Height 157.5 cm (5' 2) 08/27/2021 3:37 PM EMBOSSER APPRENTICE Body Mass Index 41.92 08/27/2021 3:37 PM EMBOSSER APPRENTICE Plan of Treatment Health Maintenance Due Date [...] Address Typ e / Group Dates AUTO [employer] AUTO [id number] 2019-Pres [phone] Au to/Liabili FAMILY [employer] [address] [place] [address] MEDICARE MEDICARE [id number] 2021-Pre [address] Medicare PART A & B sent ATTN [place] [address] BLUE CROSS BCBS PMAP [id number] 2019-Pres [phone] [address] [place] [address] [place] [employer] Party Self 1975 [address] [place] (Home) [place] [phone] [place] Personal/Family Self 1975 [address] (Home) [place] [phone] Advance Directives For more information, please contact: [phone] Latest Code Status on File Code Status Date Activated Date Inactivated Comments Full Code 08/26/2021 10:48 PM 08/29/2021 5:28 PM How was code status determined? Patient Full Code 03/15/2013 11:28 AM 07/09/2021 7:18 AM How was code status determined? Previous Documentation Care Teams Computer Analyst Relationship Specialty [facility] [address] [place] [address] Mar Alfaro DO PCP - General Family Medicine 07/09/21 [address] [place] [address]
--- OUTSIDE RECORDS SUMMARY | 2022-06-18 09:28 | XMS_ITS | Encounter Summary ---
:1975 Author Organization [facility] Address [address] [place] [address] Care Team Providers Name Role Phone Daya Galicia MD Primary Care Provider Jesse Syed [facility] Unavailable Unavailable Reason for Referral (Routine) - Auth-No PA/Ref Req Specialty Diagnoses / Procedures Referred By Contact Refer red To Contact Diagnoses Left shoulder pain Shoulder weakness TBI (traumatic brain injury) César Tirado NP Procedures MRI SHOULDER LT W/O CONTRAST [address] [place], [place] [address] Referral ID Status Reason Start Date Expiration Date Visits V isits Requested Authorized [id number] Auth-No 07/23/2013 1 1 PA/Ref Req OW FABRIC CALENDERER Reason for Visit (Routine) - Auth-No PA/Ref Req Specialty Diagnoses / Procedures Referred By Contact Refer red To Contact Diagnoses Left shoulder pain Shoulder weakness TBI (traumatic brain injury) César Tirado NP Procedures MRI SHOULDER LT W/O CONTRAST [address] [place], [place] [address] Referral ID Status Reason Start Date Expiration Date Visits V isits Requested Authorized [id number] Auth-No 07/23/2013 1 1 PA/Ref Req Encounter Details Date Type Department Care Team Description 07/27/2013 Hospital Encounter MRI [address] [place], [place] [address] Social History Tobacco Use Types [...] jesse ulder pain Results for this CON NARROW FABRIC CALENDERER Shoulder weaknes s procedure are in TBI (traumatic brain the res ults injury) (HCC) section. documented in this encounter Results MRI SHOULDER LT W/O CONTRAST (07/27/2013 11:20 AM NARROW FABRIC CALENDERER) Anatomical Region Laterality Modality Extremity Magnetic Resonance Specimen (Source) Anatomical Collection Method Collection Time Re ceived Time Location / / Volume Laterality 07/27/2013 11:40 AM NARROW FABRIC CALENDERER Impressions 07/30/2013 8:21 AM NARROW FABRIC CALENDERER IMPRESSION: Mild bursal surface tendinopathy of the rotator cuff tendons. ??No full-thickness rotator cuff tear. Narrative 07/30/2013 8:21 AM NARROW FABRIC CALENDERER EXAM : MRI of the LEFT SHOULDER [...] consciousness documented in this encounter Care Teams District Manager Major Accounts Sales Relationship Specialty Start Date End Date Daya Galicia MD PCP - General 07/19/13 07/08/21 [address] [place] [address] Jesse Syed PCP - Primary Care Clinic 07/08/21 Rehabilitation documented as of this encounter
--- OUTSIDE RECORDS SUMMARY | 2022-06-18 09:28 | XMS_ITS | Encounter Summary ---
:1975 Author Organization [facility] Address [address] [place] [address] Care Team Providers Name Role Phone Daya Galicia MD Primary Care Provider Jesse Syed [facility] Unavailable Unavailable Reason for Referral (Routine) - Closed Specialty Diagnoses / Procedures Referred By Contact Refer red To Contact Diagnoses TBI (traumatic brain injury) Daya Galicia MD Procedures CT HEAD W/O CONTR W/O 3D [address] [place], [place] [address] Referral ID Status Reason Start Date Expiration Date Visits Requ ested Visits Authorized [id number] Closed 07/13/2013 01/09/2014 1 1 EL TRUCK DRIVER Reason for Visit (Routine) - Closed Specialty Diagnoses / Procedures Referred By Contact Refer red To Contact Diagnoses TBI (traumatic brain injury) Daya Galicia MD Procedures CT HEAD W/O CONTR W/O 3D [address] [place], [place] [address] Referral ID Status Reason Start Date Expiration Date Visits Requ ested Visits Authorized [id number] Closed 07/13/2013 01/09/2014 1 1 Encounter Details Date Type Department Care Team Description 07/20/[address] [place], [place] [address] Social History Tobacco Use Types [...] TBI (traumatic brain Results for this 3D DIESEL TRUCK DRIVER injury) (HCC) procedure are in the results section. documented in this encounter Results CT HEAD W/O CONTR W/O 3D (07/20/2013 10:12 AM DIESEL TRUCK DRIVER) Anatomical Region Laterality Modality Head Computed Tomography Specimen (Source) Anatomical Collection Method Collection Time Re ceived Time Location / / Volume Laterality 07/20/2013 10:45 AM DIESEL TRUCK DRIVER Impressions 07/20/2013 10:50 AM DIESEL TRUCK DRIVER IMPRESSION: 1. ??Hyperdense parenchymal and extra-ax ial hemorrhages present in March 2013 have cleared. 2. ??No focal encephalomalacia is visibl e by CT. ??Generalized volume loss has developed, however. Narrative 07/20/2013 10:50 AM DIESEL TRUCK DRIVER EXAM: CT HEAD WITHOUT CONTRAST, 20 July [...] consciousness documented in this encounter Care Teams Wholesale Account Manager Relationship Specialty Start Date End Date Daya Galicia MD PCP - General 07/19/13 07/08/21 [address] [place] [address] Jesse Syed PCP - Primary Care Clinic 07/08/21 Rehabilitation documented as of this encounter
--- OUTSIDE RECORDS SUMMARY | 2022-06-18 09:28 | XMS_ITS | Encounter Summary ---
:1975 Author Organization [facility] Address [address] [place] [address] Care Team Providers Name Role Phone [facility] Unavailable [phone] Mar Alfaro DO Primary Care Provider Encounter [...] with No / Unsure 08/25/2021 4:25 PM PROCESS ENGINEERING INTERN someone who was confirmed or suspected to have Coronavirus / COVID-19? documented as of this encounter Plan of Treatment Not on filedocumented as of this encounter Visit Diagnoses Not on filedocumented in this encounter Care Teams Commercial Intern Relationship Specialty Start Date End Date [facility] PCP - Primary Care Clinic [place] [address] [place] [address] Mar Alfaro DO PCP - General Family Medicine 07/09/21 [address] [place] [address] documented as of this encounter
--- OUTSIDE RECORDS SUMMARY | 2022-06-18 09:28 | XMS_ITS | Encounter Summary ---
:[address] [facility] Address [address] [facility] [place] [address] Care Team Providers Name Role Phone [facility], [facility] Unavailable [phone] Mar Alfaro DO Primary Care Provider Reason for Visit Reason Comments Confusion Inpatient Admission Specialty Diagnoses / Procedures Referred By Contact Refer red To Contact Diagnoses Seizure (HCC) Referral ID Status Reason Start Date Expiration Date Visits Requ ested Visits Authorized [id number] 1 1 Encounter Details Date Type Department Care Team Description 08/26/2021 - Hospital Encounter W5 Rhys Bullock MD [address] [employer] [facility] [address] [place], [place] [id number] Seizure (HCC) 08/29/[address] [place] [address]-Hospitalist [facility] [place] [address] Jakob Jeffery MD [address] [place] [address] Adele [place] [address] [place] [id number] Social History Tobacco Use Types Packs/Day Years [...] with No / Unsure 08/26/2021 3:30 PM CORNICE UPHOLSTERER someone who was confirmed or suspected to have Coronavirus / COVID-19? documented as of this encounter Last Filed Vital Signs Vital Sign Reading Time Taken Comments Blood Pressure 138/86 08/29/2021 7:59 AM CORNICE UPHOLSTERER Pulse 89 08/29/2021 7:59 AM CORNICE UPHOLSTERER Temperature 37 ??C (98.6 ??F) 08/29/2021 7:59 AM CORNICE UPHOLSTERER Respiratory Rate 18 08/29/2021 7:59 AM CORNICE UPHOLSTERER Oxygen Saturation 96% 08/29/2021 7:59 AM CORNICE UPHOLSTERER Inhaled Oxygen Concentration - - Weight 104 kg (229 lb 3.2 oz) 08/27/2021 3:37 PM CORNICE UPHOLSTERER Height 157.5 cm (5' 2) 08/27/2021 3:37 PM CORNICE UPHOLSTERER Body Mass Index 41.92 08/27/2021 3:37 PM CORNICE UPHOLSTERER documented in this encounter Discharge Summaries Ankit [...] with Specialist: with neurologist prn [facility] CONSULTS: Neurology HOSPITAL TESTS, IMAGING: IMAGING: [...] 5.0 - 8.0 Final ? ? Specific [place], UA 08/26/2021 >=1.030* 1.015 - 1.025 Final [...] with patient, nurse. Ankit Johnson MD Hospitalist [phone] ICE UPHOLSTERER documented in this encounter Discharge Instructions Discharge Instr - ActivityAnkit Johnson MD - 08/28/2021 3:[address] Do not drive or operate for 3 months till okay by PCP due to seizures ICE UPHOLSTERER Discharge Instr - Yassine Johnson MD - 08/28/2021 3:09 PM CST low salt diet ICE UPHOLSTERER documented in this encounter Medications at Time [...] 08/29/2021 11:22 AM CST Key Peres 1975 [id number] P: Discharge A: Discharged via wheelchair to custodial at 1115 escorted by assistant chief nursing officer I: Discharge information and arrangements included: review of written discharge instructions . Pt vape pen returned from security. R:Patient expressed understanding of information. ICE UPHOLSTERER Ankit Johnson MD - 08/29/2021 9:58 AM CST Patient got discharged today as staff was unable to find which location patient was coming from----eventually all figured out and patient discharge with no concerns No billing as patient not seen ICE UPHOLSTERER Zack Sneed RN - 08/29/2021 12:56 AM [...] info or even name of sober home. ICE UPHOLSTERER Sonia Moreno RN - 08/28/2021 6:02 PM [...] 190/124, PRN hydralazine added and given x1. SERVICER COIN MACHINES BP meds added as well. D/c order [...] info or even name of sober home. ICE UPHOLSTERER Eli West APRN, BIAS CUTTER HELPER - 08/28/2021 12:37 PM CST NEUROLOGY PROGRESS [...] reconsider. PLAN: 1.OK to DC back to custodial 2. She does not drive so it's a non-issue post seizure 3. Dicussed caution with standing water (tub or pool) and activities off the ground. Time: 15 minutes Eli West, CAREN, TON CONTAINER SHIPPER, BIAS CUTTER HELPER ICE UPHOLSTERER Raysa Martines RN - 08/28/2021 12:59 AM CST Med-Surg Care Progression Note Type: Shift to shift summary [id number] ?? Length of stay: 2 days Code [...] The order for PIV was placed. The bellows charger assembler RN tried three times, but wasn't able [...] Invasive Devices: PIV D- Discharge: TBD, from [facility] ICE UPHOLSTERER Sonia Moreno RN - 08/27/2021 6:48 PM [...] Invasive Devices: PIV D- Discharge: TBD, from [facility] ICE UPHOLSTERER Ankit Johnson MD - 08/27/2021 8:55 AM [...] pH Urine 5.5 5.0 - 8.0 Specific [place], UA >=1.030 (A) 1.015 - 1.025 Urobilinogen, [...] SIGNED BY DR. OLEGARIO Johnson MD Hospitalist [phone] ICE UPHOLSTERER Virginia Rodriguez RN - 08/27/2021 6:15 AM [...] Invasive Devices: PIV D- Discharge: TBD, from [facility] ICE UPHOLSTERER documented in this encounter H&P Notes Jakob Wills MD - 08/26/2021 9:17 PM CST Images from the original note were not included. HOSPITALIST DIVISION ADMISSION HISTORY AND PHYSICAL Patient Name: Key Peres Address: [address] [place] [id number] Age: 46 y.o. Sex: female Admission Date/Time: [...] reviewed the patient's new imaging test results. ICE UPHOLSTERER documented in this encounter Procedure Notes Yamile [...] toxic, metabolic conditions, diffuse structural cerebral abnormalities ICE UPHOLSTERER documented in this encounter Consult Notes Buddy Ortega MD - 08/27/2021 10:44 AM CSTAssociated Order(s): CONSULT NEUROLOGY REPORT OF CONSULTATION Patient Name: Key Peres : 1975 Admission Date/Time: 08/26/2021 5:49 PM Primary Care Physician: Mar Alfaro DO Consulting Physician: Eli West APRN, BIAS CUTTER HELPER REASON FOR ADMISSION/CONSULTATION We are being asked [...] NOT FOR DOCUMENTATION PURPOSES Intravenous PER PROTOCOL Jaokb Wills MD ??? potassium chloride (K-DUR) extended [...] Ref Range: 5.0 - 8.0 5.5 Specific [place], UA Latest Ref Range: 1.015 - 1.025 [...] patient's care. Time: 80 minutes Eli West,DNP, TON CONTAINER SHIPPER, BIAS CUTTER HELPER ATTENDING ADDENDUM: I have personally seen and [...] visit was 55 minutes and included: Direct pucc-dj-qdez time, Review of records, Coordination of care and Documentation of visit. Buddy Ortega MD Neurology, Vascular Neurology ICE UPHOLSTERER documented in this encounter Nursing Notes Zack [...] Prevent Slipping Medication: Standard Interventions in Place ICE UPHOLSTERER Luz Liao RN - 08/28/2021 10:48 PM CST [id number] Problem: Confusion - Acute, Actual or Risk [...] No BMI 41.92 kg/m?? Luz Liao, RN ICE UPHOLSTERER Jesusita Chavis - 08/28/2021 9:17 AM CST Discharge Planning Initial Assessment Patients chart reviewed. Patient discussed in rounds. Admitting diagnoses: Seizure (HCC) [R56.9] Admitted from: Other (Comment) Sober Housing Prior: Living Arrangements: Alone Support Systems: Children;Family members Mother (Alyson Cedeño p: [phone]) Father (Chas Cedeño p: [phone]) Primary decision maker: Patient DME prior to [...] SW attempted to call Mother Alyson (p: [phone]) and . SW obtained information from [facility] everywhere. Note from 04/06/2021 [facility] contact [facility] (p: [phone]). TIANNA called facility and spoke with clinical alterations supervisor (Jerrica) who advised pt no longer [...] from mother (Alyson) advising she is in [place] till Tuesday and requested SW call pt's father (Chas). Alyson did clarify pt was indeed admitted from sober housing but did not have the phone number. COVID Test Result: SARS-CoV-2 RNA by PCR Date Value Ref Range Status 08/26/2021 SARS-CoV-2 RNA Not Detected SARS-CoV-2 RNA Not Detected Final Care management will continue to follow. MARCO A Fink, OIL REFINER 9:18 AM, 08/28/2021 P: [phone] F: [phone] ICE UPHOLSTERER Raysa Martines RN - 08/28/2021 12:58 AM CST Problem: Injury - Risk of, While Physically Restrained Goal: Absence of injury while physically restrained Outcome: Met this shift Problem: Falls/Injury-Risk of Goal: Absence of Falls/Injury Outcome: Met this shift Problem: Confusion - Acute, Actual or Risk of Goal: Maintains/improves cognitive status within limits of condition Outcome: Met this shift ICE UPHOLSTERER documented in this encounter ED Notes Annemarie Doran - 08/27/2021 1:15 PM CST EEG Note: hand hose cutter has completed the EEG at this time. ICE UPHOLSTERER Connie Lovell - 08/26/2021 10:34 PM CST Report given to med surge nurse-pt moved to 24 for dept needs ICE UPHOLSTERER Connie Lovell - 08/26/2021 10:04 PM CST Pt sleeping, o2 sats dip to 87% RA. Placed on 2L NC O2 and now 93% ICE UPHOLSTERER Connie Lovell - 08/26/2021 9:30 PM CST Up to BSC with 2 staff assist. Urine sent. Pt able to verbalize needs and follow commands with coaching. Does not remember seizure or why she is here ICE UPHOLSTERER Bree Montejo RN - 08/26/2021 7:34 PM CST Pt moved to cart 37, report given to RN ICE UPHOLSTERER Bree Montejo RN - 08/26/2021 6:17 PM CST Pt returns to cart [address] ICE UPHOLSTERER Bree Montejo RN - 08/26/2021 6:05 PM CST Pt to CT ICE UPHOLSTERER Rhys Bullock MD - 08/26/2021 5:54 PM [...] confusion. The patient lives at a sober custodial and was sent back to the emergency department today because she was off. Per the triage note, the patient reports increased confusion and migraine headache that started this morning in addition to photosensitivity and nausea. The patient began having a tonic clonic seizure while in the waiting room that was less than 5 minutes and unwitnessed. [facility]. MEDICATIONS: The patient takes: acetaminophen [...] HISTORY: The patient lives in a sober custodial. REVIEW OF SYSTEMS: Review of Systems Unable [...] Hours): Indication: confusion Ventricular Rate: 123 QRS [place]: -21 Intervals: ND 169, QRSD 105, QTc 605 Interpretation: Sinus [...] accurate. Rhys Bullock MD 5:54 PM 08/26/21 [facility] EMERGENCY DEPARTMENT ICE UPHOLSTERER Nory Brady RN - 08/26/2021 5:50 PM CST Pt began having a seizure while waiting in triage. Tonic clonic movements. Brouigt patient to stab 1as a med team. Upon getting to stab room, patient had snoring respirations. ICE UPHOLSTERER Blayne Mason RN - 08/26/2021 5:36 PM CST Patient complaining of headache in triage. Hyperventilating and complaining of nausea. Transport Analyst gave patient emesis bag and coaching with deep breaths. ICE UPHOLSTERER Blayne Mason RN - 08/26/2021 3:31 PM CST Patient presents to ED by EMS for complaint of increased confusion, migraine headache that started this morning. She reports she lives in a custodial for ETOH treatment. Hx of TBI. States she has a PRN for migraines but has not taken it. Also complains of photosensitivity and nausea. ICE UPHOLSTERER Ana Ureña RN - 08/26/2021 3:15 PM CST Pt arrived to triage via [facility]. Pt was seen here last evening for increased confusion. Pt lives at /sober home, today pt was off so she was sent back for further evaluation. BS 134. VSS. ICE UPHOLSTERER documented in this encounter Miscellaneous Notes Med Reconciliation - Anastasiya Farah, Pharm D - 08/27/2021 1:52 PM CST PHARMACY MEDICATION RECONCILIATION NOTE MEDICATION RECONCILIATION on admission by pharmacy has been completed. Prior to admission medications were reviewed with pharmacy fill history, [facility] pharmacist The [facility] medication list has been updated and reflected in the chart below. Please use the [facility] medication section for ordering home doses during admission. Medication related issues: 1. Patient reported managing her own medications but is confused; unable to contact custodial to confirm. Med rec completed per pharmacy fill history. 2. Confirmed dosing for metoprolol tartrate with pharmacist at [facility]. 3. Added: vitamin D, amlodipine, chlorthalidone, donepezil, [...] Medications: None This patient obtains medications from [id number] [place] - [address] [address] Pharmacy. Thank you for the opportunity to participate in the care of this patient. Anastasiya Zamudio, PharmD, [facility] Phone #:[phone] Time spent reconciling meds: 30 min Location: NON-face to face encounter (telephone or other means of communication) ICE UPHOLSTERER documented in this encounter Plan of Treatment Not on filedocumented as of this encounter Procedures Procedure Name Priority Date/Time Associated Comments Diagnosis BASIC METABOLIC PROF Routine 08/29/2021 6:32 Resu lts for MAGNESIUM AM CORNICE UPHOLSTERER this procedure are in the results section. CBC Routine 08/29/2021 6:32 Results for (HGB,HCT,WBC,RBC,PLATELE AM CORNICE UPHOLSTERER thi s procedure T) are in the results section. ELECTROCARDIOGRAM Routine 08/28/2021 1:32 Results for PM CORNICE UPHOLSTERER this procedure are in the results section. POTASSIUM Timed Procedure 08/28/2021 Results for 11:32 AM CORNICE UPHOLSTERER this procedure are in the results section. BASIC METABOLIC PROF STAT 08/28/2021 5:23 Resu lts for MAGNESIUM AM CORNICE UPHOLSTERER this procedure are in the results section. CBC STAT 08/28/2021 5:23 Results for (HGB,HCT,WBC,RBC,PLATELE AM CORNICE UPHOLSTERER thi s procedure T) are in the results section. MRI BRAIN LIMITED W/O Routine 08/27/2021 Result s for CON 10:09 PM CORNICE UPHOLSTERER this procedure are in the results section. POTASSIUM Timed Procedure 08/27/2021 5:13 Results f or PM CORNICE UPHOLSTERER this procedure are in the results section. EEG AWAKE & DROWSY DWAIN 08/27/2021 1:13 Result s for PM CORNICE UPHOLSTERER this procedure are in the results section. BASIC METABOLIC PROF STAT 08/27/2021 6:22 Resu lts for MAGNESIUM AM CORNICE UPHOLSTERER this procedure are in the results section. LACTIC ACID STAT 08/27/2021 6:22 Results for AM CORNICE UPHOLSTERER this procedure are in the results section. GASES VENOUS PERIPHERAL STAT 08/27/2021 6:22 R esults for AM CORNICE UPHOLSTERER this procedure are in the results section. CBC STAT 08/27/2021 6:22 Results for (HGB,HCT,WBC,RBC,PLATELE AM CORNICE UPHOLSTERER thi s procedure T) are in the results section. LACTIC ACID STAT 08/26/2021 9:50 Results for PM CORNICE UPHOLSTERER this procedure are in the results section. BASIC METAB PROFILE STAT 08/26/2021 9:50 Resul ts for PM CORNICE UPHOLSTERER this procedure are in the results section. URINALYSIS MICROSCOPY STAT 08/26/2021 9:35 Res ults for (LAB USE ONLY) PM CORNICE UPHOLSTERER this procedur e are in the results section. URINALYSIS MACROSCOPIC STAT 08/26/2021 9:35 Re sults for W/ MICROSCOPY, IF PM CORNICE UPHOLSTERER this proce dure INDICATED (DOES NOT INC are in the CULTURE) results section. SARS-COV-2 AND INFLUENZA STAT 08/26/2021 7:01 Results for A/B BY ELIZABETH PCR PM CORNICE UPHOLSTERER this proced ure are in the results section. ELECTROCARDIOGRAM STAT 08/26/2021 6:31 Results for PM CORNICE UPHOLSTERER this procedure are in the results section. CT HEAD W/O CON W/O 3D STAT 08/26/2021 6:21 Re sults for PM CORNICE UPHOLSTERER this procedure are in the results section. XR CHEST AP PORT STAT 08/26/2021 5:59 Results for PM CORNICE UPHOLSTERER this procedure are in the results section. EXTRA TUBE-EDTA STAT 08/26/2021 5:57 PM CORNICE UPHOLSTERER EXTRA TUBE-COAG STAT 08/26/2021 5:57 PM CORNICE UPHOLSTERER EXTRA TUBE-SST (LAB USE STAT 08/26/2021 5:57 ONLY) PM CORNICE UPHOLSTERER ALCOHOL (ETOH) Add On 08/26/2021 5:57 Results fo r PM CORNICE UPHOLSTERER this procedure are in the results section. LACTIC ACID STAT 08/26/2021 5:57 Results for PM CORNICE UPHOLSTERER this procedure are in the results section. BASIC METAB PROFILE STAT 08/26/2021 5:57 Resul ts for PM CORNICE UPHOLSTERER this procedure are in the results section. CBC/DIFF STAT 08/26/2021 5:57 Results for PM CORNICE UPHOLSTERER this procedure are in the results section. EXTRA TUBE PST STAT 08/26/2021 5:57 PM CORNICE UPHOLSTERER POCT LACTIC ACID STAT 08/26/2021 5:55 Results for PM CORNICE UPHOLSTERER this procedure are in the results section. EXTRA TUBE-BLOOD BANK STAT 08/26/2021 5:55 PM CORNICE UPHOLSTERER POCT CREATININE Routine 08/26/2021 5:55 Results f or PM CORNICE UPHOLSTERER this procedure are in the results section. POCT VBG/NA/K/GL STAT 08/26/2021 5:55 Results for PM CORNICE UPHOLSTERER this procedure are in the results section. POCT CALCIUM, IONIZED STAT 08/26/2021 5:55 Res ults for PM CORNICE UPHOLSTERER this procedure are in the results section. POCT CHLORIDE STAT 08/26/2021 5:55 Results for PM CORNICE UPHOLSTERER this procedure are in the results section. documented in this encounter Results (ABNORMAL) Basic Metabolic Profile Magnesium (08/29/2021 6:32 AM [facility])Only the most recent of3 resultswithin the time period is included. Analysis Performed At Patho logist Time Signature SODIUM 142 136 - 145 [facility] 08/29/2021 [facility] mmol/L ANALYZER 7:16 AM [facility] POTASSIUM 3.2 (L) 3.4 - 5.1 [facility] 08/29/2021 [facility] mmol/L ANALYZER 7:16 AM [facility] CHLORIDE 108 98 - 108 [facility] 08/29/2021 [facility] mmol/L ANALYZER 7:16 AM [facility] CARBON DIOXIDE 25 20 - 31 [facility] 08/29/2021 [facility] mmol/L ANALYZER 7:16 AM [facility] BUN (UREA 9 9 - 23 [facility] 08/29/2021 [facility] NITRO) mg/dL ANALYZER 7:16 AM [facility] CREATININE 0.79 0.50 - [facility] 08/29/2021 [facility] 1.00 ANALYZER 7:16 AM [facility] mg/dL LABORATORY EST GFR >60.00 >60.00 [facility] 08/29/2021 [facility] (CKD-EPI) mL/min ANALYZER 7:16 AM [facility] EST GFR IF >60.00 >60.00 [facility] 08/29/2021 [facility] AM mL/min ANALYZER 7:16 AM [facility] GLUCOSE 94 74 - 106 [facility] 08/29/2021 [facility] mg/dL ANALYZER 7:16 AM [facility] CALCIUM, SERUM 9.3 8.7 - [facility] 08/29/2021 [facility] 10.4 ANALYZER 7:16 AM [facility] mg/dL LABORATORY ANION GAP 9.0 0.0 - [facility] 08/29/2021 [facility] 15.0 ANALYZER 7:16 AM [facility] mmol/L LABORATORY Magnesium 1.9 1.6 - 2.6 [facility] 08/29/2021 [facility] mg/dL ANALYZER 7:16 AM [facility] Specimen Anatomical Collection Method Collection Time Receive d Time (Source) Location / / Volume Laterality Blood 08/29/2021 6:32 AM 01/22/202 2 6:40 CORNICE UPHOLSTERER AM CORNICE UPHOLSTERER Jakob Wills MD CHEMISTRY ORDERABLE Performing Organization Address City/State/ZIP Code Phon e Number [facility] [address] [place] [address] [phone] LABORATORY (ABNORMAL) CBC (HGB,HCT,WBC,RBC,Platelet) (08/29/2021 6:32 AM CORNICE UPHOLSTERER)Only the most recent of3 resultswithin the time period is included. [facility] Method Time Signature WBC 8.8 4.3 - 10.8 08/29/2021 [facility] K/uL 6:48 AM [facility] RBC 4.84 4.20 - 08/29/2021 [facility] 5.40 M/uL 6:48 AM [facility] HEMOGLOBIN 13.6 12.0 - 08/29/2021 [facility] 16.0 gm/dL 6:48 AM [facility] HEMATOCRIT 40.7 36.0 - 08/29/2021 [facility] 48.0 % 6:48 AM [facility] MCV 84 80 - 100 08/29/2021 [facility] fl 6:48 AM [facility] MCH 28 27 - 33 pg 08/29/2021 [facility] 6:48 AM [facility] MCHC 33 33 - 36 08/29/2021 [facility] gm/dL 6:48 AM [facility] RDW 15.4 (H) 11.5 - 08/29/2021 [facility] 14.5 % 6:48 AM [facility] PLATELET COUNT 301 150 - 400 08/29/2021 [facility] K/UL 6:48 AM [facility] MPV 10.4 6.5 - 12 08/29/2021 [facility] 6:48 AM [facility] Specimen Anatomical Collection Method Collection Time Receive d Time (Source) Location / / Volume Laterality Blood 08/29/2021 6:32 AM 2 6:40 CORNICE UPHOLSTERER AM CORNICE UPHOLSTERER Jakob Wills MD HEMATOLOGY ORDERABLE Performing Organization Address City/State/ZIP Code Phon e Number [facility] [address] [place] [address] LABORATORY EKG (08/28/2021 1:32 PM CORNICE UPHOLSTERER)Only the most recent of2 resultswithin the time period is included. athologist Signature EKG [facility] Comment: ?N orth [facility] ? Test Date: ?2021-08-28 Pat Name: ? KEY PERES ? Department: ?? 5NW ?Room: ? 520 Gender: ? 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 [id number] : ?1975 ? Requested By: ANKIT JOHNSON MD Order Number: [id number] ?Reading MD: ?? Oscar Hirsch MD ? Measurements Intervals ?[place] ? Rate: ? 103 ?P: ?45 ND: ? 164 ?QRS: ?-10 QRSD: ? 103 [...] AGE Electronically Signed On 08-31-2021 10:16 :00 CORNICE UPHOLSTERER by Oscar Hirsch MD Specimen (Source) Anatomical Collection Method Collection Time Re ceived Time Location / / Volume Laterality 08/28/2021 1:32 PM CORNICE UPHOLSTERER Narrative This result has an attachment that is no t available. nAkit Johnson MD EKG ORDERABLE Performing Organization Address City/State/ZIP Code Phon e Number [facility] [address] [place] [address] Potassium, Serum (08/28/2021 11:32 AM CORNICE UPHOLSTERER)Only the most recent of2 resultswithin the time period is included. athologist Signature POTASSIUM 3.5 3.4 - 5.1 ATELLICA 08/28/2021 [facility] mmol/L ANALYZER 12:03 PM [facility] Comment: Interpret with caution, specime n slightly hemolyzed. Results may be affected Specimen Anatomical Collection Method Collection Time Receive d Time (Source) Location / / Volume Laterality Blood 08/28/2021 11:32 08/28/2021 AM CORNICE UPHOLSTERER 11:41 AM CORNICE UPHOLSTERER Raysa Martines RN CHEMISTRY ORDERABLE Performing Organization Address City/State/ZIP Code Phon e Number [facility] [address] [address] LABORATORY MRI BRAIN LIMITED W/O CON (08/27/2021 10:09 PM CORNICE UPHOLSTERER) Anatomical Region Laterality Modality Head Magnetic Resonance Specimen (Source) Anatomical Collection Method Collection Time Re ceived Time Location / / Volume Laterality 08/27/2021 10:14 PM CORNICE UPHOLSTERER Impressions 08/27/2021 10:18 PM CORNICE UPHOLSTERER IMPRESSION: Slight diffuse brain atrophy. No acute a bnormality, and no finding likely to account for seizure. REPORT SIGNED BY DR. Douglas Dalton 08/27/2021 10:18 PM CORNICE UPHOLSTERER EXAM: LIMITED MRI SCAN OF BRAIN WITHOUT [...] EEG AWAKE & DROWSY (08/27/2021 1:13 PM CORNICE UPHOLSTERER) Anatomical Region Laterality Modality Other Specimen (Source) Anatomical Location Collection Method / Collectio n Time Received Time / Laterality Volume Narrative 08/27/2021 1:03 PM CORNICE UPHOLSTERER Yamile Hurd MD ? 08/27/2021 ??1:09 PM [...] diffuse structural cerebral abnormalities ?? Eli West TON CONTAINER SHIPPER, BIAS CUTTER HELPER EEG ORDERABLE Lactic Acid (08/27/2021 6:22 AM CORNICE UPHOLSTERER)Only the most recent of3 resultswithin the time period is included. athologist Signature LACTIC ACID 0.9 0.7 - 2.1 08/27/2021 [facility] mmol/L 6:48 AM [facility] Specimen Anatomical Collection Method Collection Time Receive d Time (Source) Location / / Volume Laterality Blood 08/27/2021 6:22 AM 6:33 CORNICE UPHOLSTERER AM CORNICE UPHOLSTERER Jakob Wills MD CHEMISTRY ORDERABLE Performing Organization Address City/State/ZIP Code Phon e Number [facility] [address] [place] [address] LABORATORY Gases Venous Peripheral (08/27/2021 6:22 AM CORNICE UPHOLSTERER) athologist Signature PH VENOUS 7.38 7.30 - 08/27/2021 [facility] 7.40 6:48 AM [facility] 02 SAT VENOUS 79.8 60.0 - 08/27/2021 [facility] 80.0 % 6:48 AM [facility] PO2 VENOUS 43 35 - 45 mm 08/27/2021 [facility] [facility] Hg 6:48 AM [facility] BASE EXCESS 0.8 -3.0 - 2.0 08/27/2021 [facility] VENOUS mmol/L 6:48 AM [facility] PCO2 VENOUS 45 36 - 51 mm 08/27/2021 [facility] Hg 6:48 AM [facility] HCO3 VENOUS 26 22 - 29 08/27/2021 [facility] mmol/L 6:48 AM [facility] Specimen Anatomical Collection Method Collection Time Receive d Time (Source) Location / / Volume Laterality Blood 08/27/2021 6:22 AM 6:33 [facility] AM [facility] Jakob Wills MD CHEMISTRY ORDERABLE Performing Organization Address City/State/ZIP Code Phon e Number [facility] [address] [address] [phone] LABORATORY (ABNORMAL) Basic Metabolic Profile (08/26/2021 9:50 PM [facility] UPHOLSTER[facility])Only the most recent of2 resultswithin the time period is included. Analysis Performed At Patho logist Time Signature SODIUM 140 136 - 145 [facility] 08/26/2021 [facility] mmol/L ANALYZER 10:37 PM [facility] POTASSIUM 3.1 (L) 3.4 - 5.1 [facility] 08/26/2021 [facility] mmol/L ANALYZER 10:37 PM [facility] CHLORIDE 106 98 - 108 [facility] 08/26/2021 [facility] mmol/L ANALYZER 10:37 PM [facility] CARBON DIOXIDE 26 20 - 31 [facility] 08/26/2021 [facility] mmol/L ANALYZER 10:37 PM [facility] BUN (UREA 9 9 - 23 [facility] 08/26/2021 [facility] NITRO) mg/dL ANALYZER 10:37 PM [facility] CREATININE 0.93 0.50 - [facility] 08/26/2021 [facility] 1.00 ANALYZER 10:37 PM [facility] mg/dL LABORATORY EST GFR >60.00 >60.00 [facility] 08/26/2021 [facility] (CKD-EPI) mL/min ANALYZER 10:37 PM [facility] EST GFR IF >60.00 >60.00 [facility] 08/26/2021 [facility] AM mL/min ANALYZER 10:37 PM [facility] GLUCOSE 119 (H) 74 - 106 [facility] 08/26/2021 [facility] mg/dL ANALYZER 10:37 PM [facility] CALCIUM, SERUM 8.6 (L) 8.7 - [facility] 08/26/2021 [facility] 10.4 ANALYZER 10:37 PM [facility] mg/dL LABORATORY ANION GAP 8.0 0.0 - [facility] 08/26/2021 [facility] 15.0 ANALYZER 10:37 PM [facility] mmol/L LABORATORY Specimen Anatomical Collection Method Collection Time Receive d Time (Source) Location / / Volume Laterality Blood 08/26/2021 9:50 PM [facility] 10:11 PM [facility] Rhys Bullock MD CHEMISTRY ORDERABLE Performing Organization Address [facility]/ZIP Code [address] [phone] LABORATORY (ABNORMAL) Urinalysis Microscopy (Lab Use Only) (08/26/2021 9:35 PM [facility] UPHOLSTERER) [facility] Method Time Signature WBC-UA MICRO 1-4 None 08/26/2021 [facility] Seen, 10:58 PM [facility] Occasiona LABORATORY l, Few, 1-4 /hpf BACTERIA Present (A) Absent, 08/26/2021 [facility] None Seen 10:58 PM [facility] SQUAM Few (A) None Seen 08/26/2021 [facility] EPITHELIAL /lpf 10:58 PM [facility] RBC-UA 3-9 (A) None 08/26/2021 [facility] Seen, 10:58 PM [facility] l, 1-2 /hpf Specimen Anatomical Collection Method Collection Time Receive d Time (Source) Location / / Volume Laterality Urine specimen 08/26/2021 9:35 PM 022 (specimen) [facility] 10:12 PM [facility] Jakob Wills MD URINE ORDERABLE Performing Organization Address [facility]/[address] [address] LABORATORY (ABNORMAL) Urinalysis Macroscopic w/ Microscopy, if indicated (Does not inc culture) (08/26/2021 9:35 PM COR[facility] UPHOLSTERER) [facility] Method Time Signature GLUCOSE, UA Negative Negative 08/26/2021 [facility] mg/dL 10:58 PM [facility] KETONE, UA 15 (A) Negative 08/26/2021 [facility] mg/dL 10:58 PM [facility] BILIRUBIN, UA Negative Negative 08/26/2021 [facility] 10:58 PM [facility] PROTEIN, UA 30 (A) Negative 08/26/2021 [facility] mg/dL 10:58 PM [facility] OCCULT BLOOD, Moderate (A) Negative, 08/26/2021 [facility] UA Trace 10:58 PM [facility] WBC ESTERASE, Negative Negative, 08/26/2021 [facility] UA Trace 10:58 PM [facility] NITRITE, UA Negative Negative 08/26/2021 [facility] 10:58 PM [facility] pH Urine 5.5 5.0 - 8.0 08/26/2021 [facility] 10:58 PM [facility] Specific >=1.030 (A) 1.015 - 08/26/2021 [facility] [place], UA 1.025 10:58 PM [facility] Urobilinogen, 0.2 0.2 - 1.0 08/26/2021 [facility] UA EU/dL 10:58 PM [facility] Specimen Anatomical Collection Method Collection Time Receive d Time (Source) Location / / Volume Laterality Urine specimen 08/26/2021 9:35 PM 022 (specimen) [facility] 10:12 PM [facility] Jakob Wills MD URINE ORDERABLE Performing Organization Address City/[facility]/ZIP Code Phon e Number [facility] [address] [facility] [address] [id number] LABORATORY COVID-19 (PUI) / Influenza (08/26/2021 7:01 PM [facility] U[facility]OL[facility]) Analysis Performed At Patho logist Time Signature SARS-CoV-2 SARS-CoV-2 SARS-CoV-2 [facility] 08/27/2021 [facility] RNA by PCR RNA Not RNA Not 6800 8:53 AM [facility] Detected Detected [facility] INFLUENZA A Influenza A Influenza A [facility] 08/27/2021 [facility] PCR RNA Not RNA Not 6800 8:53 AM [facility] Detected Detected [facility] INFLUENZA B Influenza B Influenza B [facility] 08/27/2021 [facility] PCR RNA Not RNA Not 6800 8:53 AM [facility] Detected Detected ANA[facility]ZER [facility] LABORATORY Specimen (Source) Anatomical Collection Method Collection Time Re ceived Time Location / / Volume Laterality Nasopharynx 08/26/2021 7:01 08/26/2021 7 :07 PM [facility] PM [facility] Rhys Bullock MD MICROBIOLOGY ORDERABLE Performing Organization Address City/State/ZIP Code Phon e Number [facility] [address] [phone] HEAD (08/26/2021 6:21 PM [facility] UPHOL[facility]) Anatomical Region Laterality Modality Head Computed Tomography Specimen (Source) Anatomical Collection Method Collection Time Re ceived Time Location / / Volume Laterality 08/26/2021 6:15 PM [facility] Impressions 08/26/2021 6:16 PM [facility] IMPRESSION: ?? 1. ??Generalized atrophy and chronic mat rovascular ischemic change. 2. ??No acute intracranial pathology. REPORT SIGNED BY DR. OLEGARIO LOVETT Narrative 08/26/2021 6:16 PM [facility] EXAM: ??CT HEAD W/O CON W/O 3D [...] ?? BRAIN PARENCHYMA: ??Small amount of lunchroom attendant deb microvascular ischemic change in the periventricular [...] ORDERABLE XRAY CHEST PORTABLE (08/26/2021 5:59 PM [facility]OL[facility]) Anatomical Region Laterality Modality Chest Computed Radiography Specimen (Source) Anatomical Collection Method Collection Time Re ceived Time Location / / Volume Laterality 08/26/2021 6:00 PM [facility] Impressions 08/26/2021 6:01 PM [facility] IMPRESSION: 1. ??No acute findings. REPORT SIGNED BY DR. OLEGARIO LOVETT Narrative 08/26/2021 6:01 PM [facility] EXAM: ??XR CHEST AP PORT DATE: 08/26/2021 [...] (ABNORMAL) Alcohol (ETOH), Plasma (08/26/2021 5:57 PM [facility] UPHOL[facility]ER) P athologist Signature ALCOHOL 4 (H) <3 mg/dL ATELLICA 08/26/2021 [facility] (ETOH), PLASMA ANALYZER 8:06 PM [facility] Specimen Anatomical Collection Method Collection Time Receive d Time (Source) Location / / Volume Laterality Blood 08/26/2021 5:57 PM 6:01 [facility] PM [facility] Rhys Bullock MD CHEMISTRY ORDERABLE Performing Organization Address City/[facility]/ZIP Code Phon e Number [facility] [address] [place] [address] [phone] LABORATORY Extra Tube-Coag (Lab Use Only) (08/26/2021 5:57 PM [facility] UPHOLSTERER) Specimen Anatomical Collection Method Collection Time Receive d Time (Source) Location / / Volume Laterality Blood 08/26/2021 5:57 PM 2 6:01 [facility] PM [facility] Rhys Bullock MD COAGULATION ORDERABLE Performing Organization Address City/[facility]/ZIP Code Phon e Number [facility] [address] [address] LABORATORY Extra Tube PST (Lab Use Only) (08/26/2021 5:57 PM [facility] UPHOLSTERER) Specimen Anatomical Collection Method Collection Time Receive d Time (Source) Location / / Volume Laterality Blood 08/26/2021 5:57 PM 2 6:01 [facility] PM [facility] Rhys Bullock MD CHEMISTRY ORDERABLE Performing Organization Address City/[facility]/ZIP Code Phon e Number [place] [address] [address] LABORATORY Extra Tube-SST (Lab Use Only) (08/26/2021 5:57 PM COR[facility] UPHOLSTERER) Specimen Anatomical Collection Method Collection Time Receive d Time (Source) Location / / Volume Laterality Blood 08/26/2021 5:57 PM 2 6:00 [facility] PM [facility] Rhys Bullock MD CHEMISTRY ORDERABLE Performing Organization Address City/[facility]/ZIP Code Phon e Number [facility] [address] [address] LABORATORY Extra Tube-EDTA (Lab Use Only) (08/26/2021 5:57 PM [facility] UPHOL[facility]) Specimen Anatomical Collection Method Collection Time Receive d Time (Source) Location / / Volume Laterality Blood 08/26/2021 5:57 PM 2 6:01 [facility] PM [facility] Rhys Bullock MD HEMATOLOGY ORDERABLE Performing Organization Address City/[facility]/ZIP Code Phon e Number [facility] [address] [address] LABORATORY (ABNORMAL) CBC w/diff (08/26/2021 5:57 PM [facility]) [facility] Method Time Signature WBC 14.8 (H) 4.3 - 08/26/2021 [facility] 10.8 K/uL 6:05 PM [facility] RBC 5.72 (H) 4.20 - 08/26/2021 [facility] 5.40 M/uL 6:05 PM [facility] HEMOGLOBIN 15.7 12.0 - 08/26/2021 [facility] 16.0 6:05 PM [facility] gm/dL LABORATORY HEMATOCRIT 51.4 (H) 36.0 - 08/26/2021 [facility] 48.0 % 6:05 PM [facility] MCV 90 80 - 100 08/26/2021 [facility] fl 6:05 PM [facility] MCH 27 27 - 33 08/26/2021 [facility] pg 6:05 PM [facility] MCHC 31 (L) 33 - 36 08/26/2021 [facility] gm/dL 6:05 PM [facility] RDW 14.9 (H) 11.5 - 08/26/2021 [facility] 14.5 % 6:05 PM [facility] PLATELET COUNT 449 (H) 150 - 400 08/26/2021 [facility] K/UL 6:05 PM [facility] MPV 10.8 6.5 - 12 08/26/2021 [facility] 6:05 PM [facility] PMN % 68.4 % 08/26/2021 [facility] 6:05 PM [facility] IG% 0.5 <=1.0 % 08/26/2021 [facility] 6:05 PM [facility] LYMPH % 25.9 % 08/26/2021 [facility] 6:05 PM [facility] MONO % 4.5 % 08/26/2021 [facility] 6:05 PM [facility] EOS % 0.1 % 08/26/2021 [facility] 6:05 PM [facility] BASO % 0.6 % 08/26/2021 [facility] 6:05 PM [facility] PMN ABSOLUTE 10.09 (H) 1.80 - 08/26/2021 [facility] 7.80 K/uL 6:05 PM [facility] IG ABSOLUTE 0.07 K/uL 08/26/2021 [facility] 6:05 PM [facility] LYMPH ABSOLUTE 3.82 1.00 - 08/26/2021 [facility] 4.00 K/uL 6:05 PM [facility] MONO ABSOLUTE 0.67 0.00 - 08/26/2021 [facility] 1.00 K/uL 6:05 PM [facility] EOS ABSOLUTE 0.02 0.00 - 08/26/2021 [facility] 0.45 K/uL 6:05 PM [facility] BASO ABSOLUTE 0.09 0.00 - 08/26/2021 [facility] 0.20 K/uL 6:05 PM [facility] NUCL RBC % 0.0 0.0 - 0.0 08/26/2021 [facility] /100 WBC 6:05 PM [facility] NUCL RBC 0.00 0.00 - 08/26/2021 [facility] ABSOLUTE 0.00 K/uL 6:05 PM [facility] Specimen Anatomical Collection Method Collection Time Receive d Time (Source) Location / / Volume Laterality Blood 08/26/2021 5:57 PM 2 6:01 [facility] PM [facility] Vini Sanchez MD HEMATOLOGY ORDERABLE Performing Organization Address City/State/ZIP Code Phon e Number [address] [address] LABORATORY POCT Chloride (08/26/2021 5:55 PM [facility]) athologist Signature POCT CHLORIDE 106 98 - 107 08/26/2021 [facility] mmol/L 5:58 PM [facility] Specimen Anatomical Collection Method Collection Time Receive d Time (Source) Location / / Volume Laterality 08/26/2021 5:55 PM 2 5:58 [facility] PM [facility] LAB POINT OF CARE TEST RESUL TS Performing Organization Address City/[facility]/ZIP [facility] Phon e Number [address] [place] [address] LABORATORY POCT CREATININE (08/26/2021 5:55 PM [facility] UPHOLSTERER) athologist Signature POCT CREATININE 1.2 0.5 - 1.3 08/26/2021 [facility] mg/dL 5:58 PM [facility] Specimen Anatomical Collection Method Collection Time Receive d Time (Source) Location / / Volume Laterality 08/26/2021 5:55 PM 2 5:58 [facility] PM [facility] LAB POINT OF CARE TEST RESUL TS Performing Organization Address City/[facility]/ZIP Code Phon e Number [facility] [address] [place] [address] LABORATORY (ABNORMAL) POCT Lac (08/26/2021 5:55 PM COR[facility] UPHOLSTER[facility]) [facility] Method Time Signature POCT LACTIC >20.0 (HH) 0.7 - 2.1 08/26/2021 [facility] ACID mmol/L 5:58 PM [facility] LABORATORY Specimen Anatomical Collection Method Collection Time Receive d Time (Source) Location / / Volume Laterality 08/26/2021 5:55 PM 2 5:58 [facility] PM [facility] LAB POINT OF CARE TEST RESUL TS Performing Organization Address City/[facility]/ZIP Code Phon e Number [place] [id number] [place] [address] LABORATORY POCT Ca, Ionized (08/26/2021 5:55 PM [facility]) athologist Signature POCT CA 1.25 1.13 - 08/26/2021 [facility] IONIZED 1.32 5:58 PM [facility] mmol/L LABORATORY Specimen Anatomical Collection Method Collection Time Receive d Time (Source) Location / / Volume Laterality 08/26/2021 5:55 PM 2 5:58 [facility] PM [facility] LAB POINT OF CARE TEST RESUL TS Performing Organization Address City/[facility]/ZIP Code Phon e Number [facility] [address] [place] [address] [phone] LABORATORY (ABNORMAL) POCT VBG/Na/K/Glu (08/26/2021 5:55 PM [facility] UPHOLSTERER) [facility] Method Time Signature POCT PH VENOUS 6.82 (L) 7.35 - 08/26/2021 [facility] 7.45 5:58 PM [facility] POCT PCO2 93 (H) 36 - 51 mm 08/26/2021 [facility] VENOUS Hg 5:58 PM [facility] POCT PO2 32 mm Hg 08/26/2021 [facility] VENOUS 5:58 PM [facility] POCT HCO3 15 (L) 22 - 29 08/26/2021 [facility] mmol/L 5:58 PM [facility] POCT BASE -22.2 (L) -3.0 - 2.0 08/26/2021 [facility] EXCESS mmol/L 5:58 PM [facility] POCT CSO2 25.7 (L) 92.0 - 08/26/2021 [facility] 98.0 %SAT 5:58 PM [facility] POCT cTCO2 18.0 mmol/L 08/26/2021 [facility] 5:58 PM [facility] POCT SODIUM 143 133 - 144 08/26/2021 [facility] mmol/L 5:58 PM [facility] POCT POTASSIUM 2.6 (LL) 3.5 - 5.0 08/26/2021 [facility] mmol/L 5:58 PM [facility] POCT GLUCOSE 179 (H) 60 - 100 08/26/2021 [facility] mg/dL 5:58 PM [facility] Specimen Anatomical Collection Method Collection Time Receive d Time (Source) Location / / Volume Laterality 08/26/2021 5:55 PM 2 5:58 [facility] PM [facility] LAB POINT OF CARE TEST RESUL TS Performing Organization Address [facility] Phon e Number [address] [address] [phone] LABORATORY Extra Tube-Blood Bank (Lab Use Only) (08/26/2021 5:55 PM [facility]) Specimen Anatomical Collection Method Collection Time Receive d Time (Source) Location / / Volume Laterality Blood 08/26/2021 5:55 PM 2 6:00 [facility] PM [facility] Rhys Bullock MD BLOOD BANK ORDERABLE Performing Organization Address [facility] Phon e Number [address] [address] LABORATORY documented in this encounter Visit Diagnoses [...] syringe 10 mL Given 08/28/2021 9:14 PM [facility] 10 mL 10 mL, Intravenous, EVERY 8 HOURS, First dose on Tue08/26/21 at 2300, Until Discontinued Given 08/27/2021 10:40 PM [facility] 10 mL Given 08/27/2021 2:00 PM [facility] 10 mL saline FLUSH syringe 10 mL Given 08/28/2021 8:13 AM [facility] 10 mL 10 mL, Intravenous, NEEDED, Starting on Tue08/26/21 at 2248, Until Tue08/29/21 at 1728, [facility] acetaminophen (TYLENOL) tablet 1,000 mg Given 08/27/2021 3:29 PM [facility] 1,000 mg 1,000 mg, oral, ONCE NEEDED, 1 dose, Starting on Tue08/26/21 at 2132, Until Tue08/27/21 at 1529, fever acetaminophen (TYLENOL) tablet 325-650 m g Given 08/26/2021 11:50 PM [facility] 650 mg 325-650 mg, oral, EVERY 4 HOURS NEEDED, Starting on Tue08/26/21 at 2248, Until Tue08/27/21 at 1441, fever, pain, for pain or fever acetaminophen (TYLENOL) tablet 650 mg Given 08/28/2021 3:45 PM [facility] 650 mg 650 mg, oral, EVERY 12 HOURS, First dose (after last modification) on Tue08/27/21 at 1445, Until Discontinued Given 08/28/2021 3:34 AM [facility] 650 mg amLODIPine (NORVASC) tablet 2.5 mg Given 08/29/2021 9:36 AM [facility] 2.5 mg 2.5 mg, oral, DAILY, First dose (after last modification) on Tue08/29/21 at 0800, Until Discontinued chlorthalidone (HYGROTON) tablet 25 mg Given 08/29/2021 9:36 AM [facility] 25 mg 25 mg, oral, DAILY, First dose (after last modification) on Tue08/29/21 at 0800, Until Discontinued donepeziL (ARICEPT) tablet 10 mg Given 08/28/2021 9:14 PM [facility] 10 mg 10 mg, oral, AT BEDTIME, First dose on Tue08/27/21 at 2200, Until Discontinued Given 08/27/2021 10:35 PM [facility] 10 mg DULoxetine (CYMBALTA) delayed release capsule Given 9:37 AM [facility] 60 mg 60 mg 60 mg, oral, DAILY, First dose on Tue08/27/21 at 0800, Until Discontinued Given 08/28/2021 8:22 AM [facility] 60 mg Given 08/27/2021 8:50 AM [facility] 60 mg hydrALAZINE (APRESOLINE) injection 10 mg Given 08/28/2021 3:44 PM [facility] 10 mg 10 mg, Intravenous, EVERY 6 HOURS NEEDED, Starting on Tue08/28/21 at 1537, Until 08/29/21 at 1728, for SBP GREATER THAN, for SBP over 180 or DBP over 100 hydrOXYzine (ATARAX) tablet 25 mg Given 08/28/2021 3:21 PM [facility] 25 mg 25 mg, oral, THREE TIMES A DAY NEEDED, Starting on Tue08/28/21 at 1322, Until Tue08/28/21 at 1537, see comments, anxiety hydrOXYzine (ATARAX) tablet 25 mg Given 08/28/2021 9:14 PM [facility] 25 mg 25 mg, oral, THREE TIMES A DAY, First dose (after last modification) on Tue08/28/21 at 1545, Until Discontinued hydrOXYzine pamoate (VISTARIL) capsule 2 5 mg 25 mg, oral, EVERY 6 HOURS NEEDED, St arting on Tue08/29/21 at 0308, Until Tue08/29/21 at 1728, anxiety ketorolac (ToradoL) injection 15 mg Given 08/26/2021 10:39 PM [facility] 15 mg 15 mg, Intravenous, ONCE, 1 dose, On Tue08/26/21 at 2215, Maximum duration of treatment is 5 days. lactated Ringers (LR) IV infusion Rate Change 08/27/2021 3:36 PM [facility] 75 mL/hr at 75 mL/hr, Intravenous, CONTINUOUS, Starting on Tue08/26/21 at 2300, Until Tue08/28/21 at 1801 New Bag 08/27/2021 12:04 AM [facility] 100 mL/hr levETIRAcetam in NaCl (KEPPRA) IV New Bag 08/26/2021 9:47 PM [facility] 1 ,000 mg piggyback 1,000 mg 1,000 mg, Intravenous, ONCE, 1 dose, On Tue08/26/21 at 2015, Administer over 30 Minutes lidocaine 1% (PF) (XYLOCAINE) Given 08/28/2021 8:13 AM [facility] 0.1 m L Left Arm injection 0.1-0.3 mL 0.1-0.3 mL, Intradermal, NEEDED, Starting on Tue08/26/21 at 2248, Until 08/29/21 at 1728, IV start or restart LORazepam (ATIVAN) injection (conc: 2 mg/mL) 1 Given 0 08/27/2021 8:10 PM [facility] 1 mg mg 1 mg, Intravenous, ONCE, 1 dose, On Sole 08/27/21 at 2015 LORazepam (ATIVAN) injection (conc: 2 mg/mL) 1 Given 0 08/27/2021 9:53 PM [facility] 1 mg mg 1 mg, Intravenous, ONCE NEEDED, 1 dose, Starting on Tue08/27/21 at 2139, Until Tue08/27/21 at 2153, for MRI LORazepam (ATIVAN) injection (conc: 2 mg/mL) 2 Given 0 08/26/2021 6:14 PM [facility] 2 mg mg 2 mg, Intravenous, ONCE, 1 dose, On Tue08/26/21 at 1830 LORazepam (ATIVAN) injection (conc: 2 mg /mL) 2 mg 2 mg, Intravenous, ONCE NEEDED, 1 dos e, Starting on Tue08/26/21 at 1819, Until Tue08/29/21 at 1728, seizure LORAZEPAM 2 MG/ML INJECTION SOLUTION Given 08/26/2021 5:55 PM [facility] 2 mg 1 dose, Starting on Tue08/26/21 at 1753, Until Tue08/26/21 at 1755 MAGNESIUM REPLACEMENT INTRAVENOUS - NOT FOR DOCUMENTATION PURPOSES Intravenous, PER PROTOCOL, Starting on T 08/27/21 at 0729, Until 08/29/21 at 1728 metoprolol tartrate (LOPRESSOR) tablet 1 00 mg Given 08/29/2021 9:36 AM CORNICE UPHOLSTERER 100 mg 100 mg, oral, DAILY, First dose on Tue08/28/21 at 1645, Until Discontinued Given 08/28/2021 5:25 PM CORNICE UPHOLSTERER 100 mg ondansetron (ZOFRAN) disintegrating tabl et 4 mg Given 08/26/2021 3:36 PM CORNICE UPHOLSTERER 4 mg 4 mg, oral, ONCE, 1 dose, On Tue08/26/21 at 1545 ONDANSETRON 4 MG DISINTEGRATING TABLET 1 dose, Starting on Tue08/26/21 at 1535, Until 08/08 at 1536 potassium chloride (K-DUR) extended release Given 08/09 12:08 PM CORNICE UPHOLSTERER 40 mEq tablet 40 mEq 40 mEq, oral, EVERY 4 HOURS (NS), 2 doses, First dose on Tue08/27/21 at 0800, Last dose on Tue08/27/21 at 1200 Given 08/27/2021 8:07 AM CORNICE UPHOLSTERER 40 mEq potassium chloride (K-DUR) extended release Given 08/28/2021 8:21 AM CORNICE UPHOLSTERER 40 mEq tablet 40 mEq 40 mEq, oral, ONCE, 1 dose, On Tue08/28/21 at 0700 potassium chloride (K-DUR) extended release Given 08/29/2021 9:36 AM CORNICE UPHOLSTERER 40 mEq tablet 40 mEq 40 mEq, oral, ONCE, 1 dose, On Tue08/29/21 at 0800 potassium chloride 10 mEq IV New Bag 08/26/2021 6:47 PM CORNICE UPHOLSTERER 10 mEq 100 mL/hr piggyback in 100 mL 100 mL (10 mEq), Intravenous, ONCE, 1 dose, On Tue08/26/21 at 1845, Administer over 60 Minutes potassium chloride 10 mEq IV piggyback in New Bag 2021 11:04 PM CORNICE UPHOLSTERER 100 mL 100 mL 100 mL (10 mEq), Intravenous, EVERY 1 HOUR, 2 doses, First dose on Tue08/26/21 at 2200, Last dose on Tue08/26/21 at 2300, Administer over 60 Minutes New Bag 08/26/2021 10:00 PM CORNICE UPHOLSTERER 100 mL POTASSIUM CHLORIDE 10 MEQ/100ML IN [...] 0.9 % New Bag 08/26/2021 6:00 PM CORNICE UPHOLSTERER 1,000 mL 20 00 mL/hr INTRAVENOUS SOLUTION 1 dose, Starting on Tue08/26/21 at 1758, Until Tue08/26/21 at 1800 SUMAtriptan succinate (IMITREX) tablet 2 5 mg Given 08/27/2021 5:13 PM CORNICE UPHOLSTERER 25 mg 25 mg, oral, ONCE NEEDED, Starting on Sole 08/27/21 at 1509, Until 08/29/21 at 1728, migraine headache documented in this encounter Active and Recently Administered Medications Times are shown in CORNICE UPHOLSTERER. Scheduled Medication Order 08/27/2021 08/28/2021 08/29/2021 saline [...] Time COVID-19/Influenza Rule-Out 08/26/2021 08/26/202108/09 8:53 AM CORNICE UPHOLSTERER documented as of this encounter Care Teams Procedure Writer Relationship Specialty Start Date End Date [facility] PCP - Primary Care Clinic [address] [place] [address] [place] [id number] Mar Alfaro DO PCP - General Family Medicine 07/09/21 [address] [place] [address] documented as of this encounter
--- OUTSIDE RECORDS SUMMARY | 2022-06-18 09:29 | XMS_ITS | Encounter Summary ---
:1975 Author Organization [facility] Address [address] [place] [address] Care Team Providers Name Role Phone Line, Ed Referral Primary Care Provider Line, Ed Referral Unavailable Daya Galicia MD Primary Care Provider Jesse Syed [facility] Unavailable Unavailable Clinic, [facility] Unavailable [phone] Mar Alfaro DO Primary Care Provider Encounter Details Date Type Department Care Team Description 05/11/2013 NMR Voip Network Technician Voip Network Technician Rhys Orellana MD [address] [place] [id number] Social History Tobacco Use Types Packs/Day Years [...] recent plain cervical and thoracic films from [place] done May 09, 2013. The C5 fracture appears stable in comparison to the prior studies, as does the T4 fracture. 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 PCP - Primary Care 07/09/21 [facility] [address] [place] [phone] Mar Alfaro DO PCP - General Family Medicine 07/09/21 [address] [place] [address] documented as of this encounter
--- OUTSIDE RECORDS SUMMARY | 2022-06-18 09:29 | XMS_ITS | Encounter Summary ---
:1975 Author Organization [facility] Address [address] [place] [address] Care Team Providers Name Role Phone Line, Ed Referral Primary Care Provider Line, Ed Referral Unavailable Daya Galicia MD Primary Care Provider Jesse Syed [facility] Unavailable Unavailable Clinic, [facility] Unavailable [phone] Mar Alfaro DO Primary Care Provider Encounter Details Date Type Department Care Team Description 05/09/2013 NMR Grip Grip Rhys Orellana MD [address] [place] [phone] Social History Tobacco Use Types Packs/Day Years [...] are now three weeks old, I called [facility] at [phone] and asked them to repeat the films, cervical and thoracic, and we would check those once they arrive over to [place]. 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 PCP - Primary Care 07/09/21 [facility] [address] [place] [phone] Mar Alfaro DO PCP - General Family Medicine 07/09/21 [address] [place] [address] documented as of this encounter
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
--- OUTSIDE RECORDS SUMMARY | 2022-06-18 09:29 | XMS_ITS | Encounter Summary ---
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 RH A Positive 03/04/2013 [facility] 8:26 PM CDT ANTIBODY Negative 03/04/2013 [facility] SCREEN 8:26 PM CDT Specimen Anatomical Collection Method Collection Time Receive d Time (Source) Location / / Volume Laterality Blood specimen 03/04/2013 7:30 PM 013 7:34 (specimen) CDT PM CDT Faizan Fishman MD BLOOD BANK ORDERABLE Performing Organization Address City/[facility]/ZIP Code Phon [place] [address] [address] [facility] (ABNORMAL) Alcohol (ETOH), Blood (03/04/2013 7:30 PM CDT) P athologist Signature ALCOHOL 36 (H) <6 mg/dL 03/04/[address] [facility] (ETOH), PLASMA 7:57 PM CDT LABORATORY Specimen Anatomical Collection Method Collection Time Receive d Time (Source) Location / / Volume Laterality Blood specimen 03/04/2013 7:30 PM 013 7:34 (specimen) CDT PM CDT Faizan Fishman MD CHEMISTRY ORDERABLE Performing Organization Address City/[facility]/ZIP [facility] Phon e Number [address] [address] [phone] [address] (ABNORMAL) Gases Venous Peripheral (03/04/2013 7:30 PM CDT) Analysis Performed At Patho logist Time Signature PH VENOUS 7.34 7.30 - 03/04/[address] [facility] 7.40 7:57 PM CDT LABORATORY 02 SAT VENOUS 87.5 (H) 60.0 - 03/04/[address] [facility] 80.0 % 7:57 PM CDT LABORATORY PO2 VENOUS 55 (L) 75 - 100 03/04/[address] [facility] mm Hg 7:57 PM CDT LABORATORY BASE EXCESS -3.4 (L) -3.0 - 2.0 03/04/[address] [facility] VENOUS mMol/L 7:57 PM CDT LABORATORY PCO2 VENOUS 43 36 - 51 mm 03/04/[address] [facility] Hg 7:57 PM CDT LABORATORY HCO3 VENOUS 22 22 - 29 03/04/[address] [facility] mMol/L 7:57 PM CDT LABORATORY Specimen Anatomical Collection Method Collection Time Receive d Time (Source) Location / / Volume Laterality Blood specimen 03/04/2013 7:30 PM 013 7:34 (specimen) CDT PM CDT Faizan Fishman MD CHEMISTRY ORDERABLE Performing Organization Address City/State/ZIP Code Phon e Number [facility] [address] [place] [address] LABORATORY [facility] [address] [place], [place] [address] (ABNORMAL) Lactic Acid (03/04/2013 7:30 PM CDT) athologist Signature LACTIC ACID 2.3 (H) 0.7 - 2.1 03/04/[address] [facility] mMol/L 7:38 PM CDT LABORATORY Specimen Anatomical Collection Method Collection Time Receive d Time (Source) Location / / Volume Laterality Blood specimen 03/04/2013 7:30 PM 013 7:34 (specimen) CDT PM CDT Faizan Fishman MD CHEMISTRY ORDERABLE Performing Organization Address City/[facility]/ZIP Code Phon e Number [facility] [address] [place] [address] LABORATORY [facility] [address] [place] [address] Trauma / Stroke Creat / GFR (03/04/2013 7:30 PM CDT) athologist Signature EST GFR >60 >60 mL/min 03/04/[address] [facility] (CKD-EPI) 7:45 PM CDT LABORATORY EST GFR IF >60 >60 mL/min 03/04/[address] [facility] AM 7:45 PM CDT LABORATORY CREATININE 0.80 0.40 - 03/04/[address] [facility] 1.10 mg/dL 7:45 PM CDT LABORATORY Specimen Anatomical Collection Method Collection Time Receive d Time (Source) Location / / Volume Laterality Blood specimen 03/04/2013 7:30 PM 013 7:34 (specimen) CDT PM CDT Narrative [facility] LABORATORY - 03/04/2013 7 :45 PM CDT Person Notified: JULIÁN , Unit: CT. ?? Time Notified: 7:45 PM Faizan Fishman MD CHEMISTRY ORDERABLE Performing Organization Address City/State/ZIP Code Phon e Number [facility] [address] [place] [address] [phone] LABORATORY [facility] [address] [place] [address] Glucose, Serum (03/04/2013 7:30 PM CDT) athologist [facility] GLUCOSE 85 60 - 100 03/04/[address] [facility] mg/dL 7:48 PM CDT LABORATORY Specimen Anatomical Collection Method Collection Time Receive d Time (Source) Location / / Volume Laterality Blood specimen 03/04/2013 7:30 PM 013 7:34 (specimen) CDT PM CDT Faizan Fishman MD CHEMISTRY ORDERABLE Performing Organization Address City/State/ZIP Code Phon e Number [facility] [address] [place] [address] LABORATORY [facility] [address] [place] [address] Platelet Count (03/04/2013 7:30 PM CDT) [facility] PLATELET COUNT 196 150 - 400 03/04/[address] [facility] K/uL 7:41 PM CDT LABORATORY Specimen Anatomical Collection Method Collection Time Receive d Time (Source) Location / / Volume Laterality Blood specimen 03/04/2013 7:30 PM 013 7:34 (specimen) CDT PM CDT Faizan Fishman MD HEMATOLOGY ORDERABLE Performing Organization Address City/State/ZIP Code Phon e Number [facility] [address] [place] [address] LABORATORY [facility] [address] [place] [address] Hemoglobin (03/04/2013 7:30 PM CDT) athologist [facility] HEMOGLOBIN 12.4 12.0 - 16.0 03/04/[address] [facility] gm/dL 7:41 PM CDT LABORATORY Specimen Anatomical Collection Method Collection Time Receive d Time (Source) Location / / Volume Laterality Blood specimen 03/04/2013 7:30 PM 013 7:34 (specimen) CDT PM CDT Faizan Fishman MD HEMATOLOGY ORDERABLE Performing Organization Address City/[facility]/ZIP Code Phon e Number [facility] [address] [place] [address] LABORATORY [facility] [address] [place] [address] ABORh Confirm (Lab Use Only) [...] Code Phon e Number [facility] [place] [address] [address] [facility] Extra Tube-Blood Bank (Lab Use Only) (03/04/2013 7:27 PM CDT) Specimen Anatomical Collection Method Collection Time Receive d Time (Source) Location / / Volume Laterality Blood specimen 03/04/2013 7:27 PM 013 7:36 (specimen) CDT PM CDT Faizan Fishman MD BLOOD BANK ORDERABLE Performing Organization Address City/State/ZIP Code Phon e Number [facility] [address] [place] [address] LABORATORY documented in this encounter Visit Diagnoses [...] at 2212, Until Tue03/05/13 at 0942, for [id number] pain or if not tolerating oral intake Given 03/05/2013 3:29 AM CDT 0.5 mg HYDROmorphone (PF) (DILAUDID) syringe 0. 5-1 mg Given 03/15/2013 11:32 AM CDT 1 mg 0.5-1 mg, Intravenous, EVERY 1 HOUR NEEDED, Starting on Tue03/05/13 at 0937, Until Sole 03/15/13 at 1945, for kqztknme-[id number] pain or if not tolerating oral intake [...] solution 15 mL 0748 (Given - Provider: Zluema Aparicio RN)1951 (Given - Provider: Izabela Pierson [...] at 0937, Until Tue03/15/13 at 1945, for dnipbzwv-wb-tbwkei pain or if not tolerating oral intake [...] 0509 documented in this encounter Care Teams Editorial Manager Relationship Specialty Start Date End Date Line, Ed Referral PCP - General 03/04/13 07/18/13 ED REFERRAL LINE - ED USE ONLY Line, Ed Referral PCP - [facility] 03/04/13 ED REFERRAL LINE - ED USE ONLY documented as of this encounter
--- OUTSIDE RECORDS SUMMARY | 2022-06-18 09:30 | XMS_ITS | Encounter Summary ---
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 ORDERABLE Performing Organization Address City/[facility]/ZIP [facility] Phon e Number [facility] [address] [place] [address] [facility] [address] [place], [place] [address] Magnesium (03/15/2013 3:55 AM CDT)Only the most recent of11 resultswithin the time period is included. athologist Signature Magnesium 2.5 1.7 - 2.5 03/15/2013 [facility] NAMED [facility] mg/dL 4:39 AM CDT LABORATORY Specimen Anatomical Collection Method Collection Time Receive d Time (Source) Location / / Volume Laterality Blood specimen 03/15/2013 3:55 AM 013 4:10 (specimen) CDT AM CDT Carson Vazquez MD CHEMISTRY ORDERABLE Performing Organization Address [facility] Phon e Number [place] [address] [place] [address] LABORATORY [place] [address] [place] [address] Potassium, Serum (03/15/2013 3:55 AM CDT)Only the most recent of16 resultswithin the time period is included. athologist Signature POTASSIUM 3.8 3.5 - 5.0 03/15/2013 [facility] NAMED [facility] mMol/L 4:39 AM CDT LABORATORY Specimen Anatomical Collection Method Collection Time Receive d Time (Source) Location / / Volume Laterality Blood specimen 03/15/2013 3:55 AM 013 4:10 (specimen) CDT AM CDT Carson Vazquez MD CHEMISTRY ORDERABLE Performing Organization Address City/[facility]/ZIP [facility] Phon e Number [facility] [address] [place] [address] [facility] [address] [place], [place] [address] Sodium, Urine Random (03/14/2013 3:55 AM CDT)Only the most recent of9 results within the time period is included. athologist Signature SODIUM, URINE 49 mMol/L 03/14/2013 [facility] NAM[facility] RANDOM 4:20 AM CDT LABORATORY Specimen Anatomical Collection Method Collection Time Receive d Time (Source) Location / / Volume Laterality Urine specimen 03/14/2013 3:55 AM 013 3:58 (specimen) CDT AM CDT Faizan Fishman MD CHEMISTRY ORDERABLE Performing Organization Address City/[facility] Phon e Number [facility] [address] [place] [address] [place] [address] [facility] [address] [place] [address] [place], [place] [address] Prealbumin (03/14/2013 3:50 AM CDT)Only the most recent of3 resultswithin the time period is included. athologist Signature PREALBUMIN 21 18 - 38 03/14/2013 [facility] NAM[facility] mg/dL 4:30 AM CDT LABORATORY Specimen Anatomical Collection Method Collection Time Receive d Time (Source) Location / / Volume Laterality Blood specimen 03/14/2013 3:50 AM 013 3:59 (specimen) CDT AM CDT Carson Vazquez MD CHEMISTRY ORDERABLE Performing Organization Address [facility] Phon e Number [facility] [address] [place] [address] [address] Osmolality, Blood (03/14/2013 3:50 AM CDT)Only the most recent of25 results within the time period is included. athologist Signature Osmolality, 286 275 - 295 03/14/2013 [facility] NAMED [facility] Blood mOsm/Kg 8:01 AM CDT LABORATORY Specimen Anatomical Collection Method Collection Time Receive d Time (Source) Location / / Volume Laterality Blood specimen 03/14/2013 3:50 AM 013 3:59 (specimen) CDT AM CDT Carson Vazquez MD CHEMISTRY ORDERABLE Performing Organization Address City/[facility] Phon e Number [facility] [address] [facility] [address] [address] XR CHEST AP [...] arslan st was obtained. FINDINGS/ Procedure Note Telephone Sterilizer, Jon Paulino MD - 03/13/2013Formattin g of [...] of8 resultswithin the time period is included. [facility] gist Method Time Signature SODIUM 138 133 - 144 03/12/2013 [facility] NAMED [facility] mMol/L 4:13 AM CDT LABORATORY POTASSIUM 3.7 3.5 - 5.0 03/12/2013 [facility] NAMED [facility] mMol/L 4:13 AM CDT LABORATORY CHLORIDE 107 99 - 111 03/12/2013 [facility] NAMED [facility] mMol/L 4:13 AM CDT LABORATORY CARBON DIOXIDE 26.0 21.0 - 03/12/2013 [facility] NAMED [facility] 30.0 4:13 AM CDT LABORATORY mMol/L BUN (UREA 13 6 - 24 03/12/2013 [facility] NAMED [facility] NITRO) mg/dL 4:13 AM CDT LABORATORY CREATININE 0.35 (L) 0.40 - 03/12/2013 [facility] NAMED [facility] 1.10 mg/dL 4:13 AM CDT LABORATORY EST GFR >60 >60 mL/min 03/12/2013 [facility] NAMED [facility] (CKD-EPI) 4:13 AM CDT LABORATORY EST GFR IF >60 >60 mL/min 03/12/2013 [facility] NAMED [facility] AM 4:13 AM CDT LABORATORY GLUCOSE 122 (H) 60 - 100 03/12/2013 [facility] NAMED [facility] mg/dL 4:13 AM CDT LABORATORY CALCIUM, SERUM 8.4 (L) 8.6 - 10.2 03/12/2013 [facility] L mg/dL 4:13 AM CDT LABORATORY ANION GAP 5.0 0.0 - 15.0 03/12/2013 [facility] NAMED [facility] mMol/L 4:13 AM CDT LABORATORY Specimen Anatomical Collection Method Collection Time Receive d Time (Source) Location / / Volume Laterality Blood specimen 03/12/2013 3:40 AM 013 3:48 (specimen) CDT AM CDT Carson Vazquez MD CHEMISTRY ORDERABLE Performing Organization Address City/State/ZIP Code Phon e Number [address] [facility] [address] [place] [address] (ABNORMAL) CBC (Hgb,Hct,WBC,RBC,Platelet) (03/12/2013 3:40 AM CDT)Only the most recent of7 resultswithin the time period is included. [facility] gist Method Time Signature WBC 9.6 4.3 - 10.8 03/12/2013 [facility] NAMED [facility] K/uL 4:05 AM CDT LABORATORY RBC 2.94 (L) 4.20 - 03/12/2013 [facility] NAMED [facility] 5.40 M/uL 4:05 AM CDT LABORATORY HEMOGLOBIN 9.3 (L) 12.0 - 03/12/2013 [facility] NAMED [facility] 16.0 gm/dL 4:05 AM CDT LABORATORY HEMATOCRIT 27.4 (L) 36.0 - 03/12/2013 [facility] NAMED [facility] 48.0 % 4:05 AM CDT LABORATORY MCV 93 80 - 100 03/12/2013 [facility] NAMED [facility] fl 4:05 AM CDT LABORATORY MCH 32 27 - 33 pg 03/12/2013 [facility] NAMED [facility] 4:05 AM CDT LABORATORY MCHC 34 33 - 36 03/12/2013 [facility] NAMED [facility] gm/dL 4:05 AM CDT LABORATORY RDW 12.7 11.5 - 03/12/2013 [facility] NAMED [facility] 14.5 % 4:05 AM CDT LABORATORY PLATELET COUNT 346 150 - 400 03/12/2013 [facility] NAMED [facility] K/uL 4:05 AM CDT LABORATORY MPV 9.9 6.5 - 12.0 03/12/2013 [facility] NAMED [facility] 4:05 AM CDT LABORATORY Specimen Anatomical Collection Method Collection Time Receive d Time (Source) Location / / Volume Laterality Blood specimen 03/12/2013 3:40 AM 013 3:48 (specimen) CDT AM CDT Carson Vazquez MD HEMATOLOGY ORDERABLE Performing Organization Address City/State/ZIP Code Phon e Number [address] [address] [address] (ABNORMAL) CBC / Diff (03/09/2013 5:43 AM CDT) [facility] gist Method Time Signature WBC 8.4 4.3 - 10.8 03/09/2013 [facility] NAMED [facility] K/uL 6:13 AM CDT LABORATORY RBC 3.04 (L) 4.20 - 03/09/2013 [facility] NAMED [facility] 5.40 M/uL 6:13 AM CDT LABORATORY HEMOGLOBIN 9.4 (L) 12.0 - 03/09/2013 [facility] NAMED [facility] 16.0 gm/dL 6:13 AM CDT LABORATORY HEMATOCRIT 29.2 (L) 36.0 - 03/09/2013 [facility] NAMED [facility] 48.0 % 6:13 AM CDT LABORATORY MCV 96 80 - 100 03/09/2013 [facility] NAMED [facility] fl 6:13 AM CDT LABORATORY MCH 31 27 - 33 pg 03/09/2013 [facility] NAM[facility] 6:13 AM CDT LABORATORY MCHC 32 (L) 33 - 36 03/09/2013 [facility] NAMED [facility] gm/dL 6:13 AM CDT LABORATORY RDW 12.6 11.5 - 03/09/2013 [facility] NAM[facility] 14.5 % 6:13 AM CDT LABORATORY PLATELET COUNT 235 150 - 400 03/09/2013 [facility] NAMED [facility] K/uL 6:13 AM CDT LABORATORY MPV 9.9 6.5 - 12.0 03/09/2013 [facility] NAMED [facility] 6:13 AM CDT LABORATORY PMN % 79.3 (H) 40.0 - 03/09/2013 [facility] NAM[facility] 77.0 % 6:13 AM CDT LABORATORY LYMPH % 10.7 (L) 24.0 - 03/09/2013 [facility] NAMED [facility] 44.0 % 6:13 AM CDT LABORATORY MONO % 8.0 (H) 3.0 - 6.0 03/09/2013 [facility] NAMED [facility] % 6:13 AM CDT LABORATORY EOS % 1.8 0.0 - 3.0 03/09/2013 [facility] NAMED [facility] % 6:13 AM CDT LABORATORY BASO % 0.2 0.0 - 1.0 03/09/2013 [facility] NAMED [facility] % 6:13 AM CDT LABORATORY PMN ABSOLUTE 6.62 1.80 - 03/09/2013 [facility] NAMED [facility] 7.80 K/uL 6:13 AM CDT LABORATORY LYMPH ABSOLUTE 0.89 (L) 1.00 - 03/09/2013 [facility] NAMED [facility] 4.00 K/uL 6:13 AM CDT LABORATORY MONO ABSOLUTE 0.67 0.00 - 03/09/2013 [facility] NAMED [facility] 1.00 K/uL 6:13 AM CDT LABORATORY EOS ABSOLUTE 0.15 0.00 - 03/09/2013 [facility] NAMED [facility] 0.45 K/uL 6:13 AM CDT LABORATORY BASO ABSOLUTE 0.02 0.00 - 03/09/2013 [facility] NAMED [facility] 0.20 K/ul 6:13 AM CDT LABORATORY Specimen Anatomical Collection Method Collection Time Receive d Time (Source) Location / / Volume Laterality Blood specimen 03/09/2013 5:43 AM 013 5:43 (specimen) CDT AM CDT Carson Vazquez MD HEMATOLOGY ORDERABLE Performing Organization Address City/State/ZIP Code Phon e Number [facility] [address] [place] [address] [facility] [address] [place], [place] [address] (ABNORMAL) Creatine Kinase (CK Total) (03/09/2013 5:43 AM CDT)Only the most recent of4 resultswithin the time period is included. P athologist Signature CK TOTAL 474 (H) 15 - 170 03/09/2013 [facility] NAMED [facility] IU/L 6:18 AM CDT LABORATORY Specimen Anatomical Collection Method Collection Time Receive d Time (Source) Location / / Volume Laterality Blood specimen 03/09/2013 5:43 AM 013 5:43 (specimen) CDT AM CDT Carson Vazquez MD CHEMISTRY ORDERABLE Performing Organization Address City/[facility]/ZIP Code Phon e Number [facility] [address] [place] [address] [facility] [address] [place] [address] Triglycerides, Serum (03/09/2013 5:43 AM CDT)Only the most recent of5 results within the time period is included. Patholo gist Method Time Signature TRIGLYCERIDES 95 <150 mg/dL 03/09/2013 [facility] NAMED [facility] PROFILE 6:18 AM CDT LABORATORY Specimen Anatomical Collection Method Collection Time Receive d Time (Source) Location / / Volume Laterality Blood specimen 03/09/2013 5:43 AM 013 5:43 (specimen) CDT AM CDT Carson Vazquez MD CHEMISTRY ORDERABLE Performing Organization Address City/State/ZIP Code Phon e Number [facility] [address] [place] [address] [facility] [address] [place] [address] Procalcitonin (03/08/2013 2:00 PM CDT) P athologist Signature Procalcitonin <0.10 ng/ml 03/08/2013 [facility]AM[facility] 3:26 PM CDT LABORATORY Specimen Anatomical Collection Method Collection Time Receive d Time (Source) Location / / Volume Laterality Blood specimen 03/08/2013 2:00 PM 013 2:13 (specimen) CDT PM CDT Narrative [facility] NAM[facility] LABORATORY - 03/08/2013 3 :26 PM [...] Code Phon e Number [facility] [address] [facility] [address] [address] XR FEMUR PORT [...] of2 resultswithin the time period is included. [facility] Method Time Signature Sputum Heavy growth of 03/11/2013 [place] Culture Enterobacter 8:42 AM [place] cloacae (A) LABORATORY Sputum Heavy growth of 03/11/2013 [place] Culture Serratia 8:42 AM [place] marcescens (A) LABORATORY Gram Stain Many Gram 03/11/2013 [place] Result Negative Bacilli 8:42 AM [facility] LABORATORY Gram Stain Many PMN's / LPF 03/11/2013 [place] Result 8:42 AM [facility] LABORATORY Gram Stain <10 Epithelial 03/11/2013 [place] Result cells / LPF 8:42 AM CDT [place] LABORATORY Specimen Anatomical Location Collection Method Collection [...] Organization Address City/State/ZIP Code Phon e Number [address] [address] [address] CULT-BLOOD (03/08/2013 10:38 AM CDT)Only the most recent of2 resultswithin the time period is included. [facility] gist Method Time Signature Blood Culture No growth 5 03/13/2013 [facility] L days. 4:11 PM CDT LABORATORY Specimen Anatomical Collection Method Collection Time Receive d Time (Source) Location / / Volume Laterality Blood specimen BLOOD SPECIMEN / 03/08/2013 10:38 03/08 (specimen) Unknown AM CDT 11:14 AM CDT Miles Keivn MD MICROBIOLOGY ORDERABLE Performing Organization Address City/[facility]/ZIP Code Phon e Number [facility] [address] [place] [address] [phone] [facility] [address] [place] [address] (ABNORMAL) Urine Culture (03/08/2013 10:38 AM CDT) [facility] gist Method Time Signature Urine Culture 40,000 03/09/2013 [facility] NAMED [facility] cfu/ml of 3:41 PM CDT LABORATORY Yeast. (A) Specimen Anatomical Collection Method Collection Time Receive d Time (Source) Location / / Volume Laterality Urine specimen 03/08/2013 10:38 3 2:13 (specimen) AM CDT PM CDT Miles Kevin MD MICROBIOLOGY ORDERABLE Performing Organization Address [facility]/ZIP Code Phon e Number [facility] [address] [place] [address] [facility] [address] [place], [place] [address] CT HEAD W/O IV CONTRAST [...] Cleary MD URINE ORDERABLE Performing Organization Address City/[facility]/ZIP Code Phon e Number [address] [address] LABORATORY Extra Tube-SST (Lab Use Only) (03/07/2013 5:10 AM CDT) Specimen Anatomical Collection Method Collection Time Receive d Time (Source) Location / / Volume Laterality Blood specimen 03/07/2013 5:10 AM 013 5:39 (specimen) CDT AM CDT Mushtaq Cleary MD CHEMISTRY ORDERABLE Performing Organization Address City/State/ZIP Code Phon e Number [address] [place] [address] LABORATORY Extra Tube PST (Lab Use Only) (03/07/2013 5:10 AM CDT) Specimen Anatomical Collection Method Collection Time Receive d Time (Source) Location / / Volume Laterality Blood specimen 03/07/2013 5:10 AM 013 5:39 (specimen) CDT AM CDT Mushtaq Cleary MD CHEMISTRY ORDERABLE Performing Organization Address City/[facility]/ZIP [facility] Phon e Number [address] [place] [address] [phone] LABORATORY (ABNORMAL) POCT Gases Arterial (03/06/2013 4:20 AM CDT) [facility] Method Time Signature POCT PH-ART 7.39 7.35 - 03/09/2013 [facility] NAMED [facility] 7.45 3:15 PM CDT LABORATORY POCT PCO2-ART 45 33 - 45 mm 03/09/2013 [facility] NAMED [facility] Hg 3:15 PM CDT LABORATORY POCT PO2-ART 111.7 (H) 75 - 100 03/09/2013 [facility] NAMED [facility] mm Hg 3:15 PM CDT LABORATORY POCT HCO3-ART 27 22 - 29 03/09/2013 [facility] NAMED [facility] mMol/L 3:15 PM CDT LABORATORY POCT BASE 1.9 -3.0 - 2.0 03/09/2013 [facility] NAMED [facility] EXCESS mMol/L 3:15 PM CDT LABORATORY POCT CSO2 98.3 (H) 92.0 - 03/09/2013 [facility] NAMED [facility] 98.0 % Sat 3:15 PM CDT LABORATORY POCT cTCO2 28.6 mMol/L 03/09/2013 [facility] NAMED [facility] 3:15 PM CDT LABORATORY Specimen Anatomical Collection Method Collection Time Receive d Time (Source) Location / / Volume Laterality Arterial blood 03/06/2013 4:20 AM 013 3:15 specimen CDT PM CDT (specimen) Mushtaq Cleary MD LAB POINT OF CARE TEST RESUL TS Performing Organization Address City/State/ZIP Code Phon e Number [place] [address] [place] [address] [address] (ABNORMAL) Electrolytes (03/05/2013 11:11 AM CDT)Only the most recent of3 resultswithin the time period is included. athologist Signature SODIUM 144 133 - 144 03/05/2013 [facility] NAMED [facility] mMol/L 11:35 AM CDT LABORATORY POTASSIUM 3.8 3.5 - 5.0 03/05/2013 [facility] NAMED [facility] mMol/L 11:35 AM CDT LABORATORY CHLORIDE 113 (H) 99 - 111 03/05/2013 [facility] NAMED [facility] mMol/L 11:35 AM CDT LABORATORY CARBON DIOXIDE 26.0 21.0 - 03/05/2013 [facility] NAMED [facility] 30.0 11:35 AM CDT LABORATORY mMol/L ANION GAP 5.0 0.0 - 15.0 03/05/2013 [facility] NAMED [facility] mMol/L 11:35 AM CDT LABORATORY Specimen Anatomical Collection Method Collection Time Receive d Time (Source) Location / / Volume Laterality Blood specimen 03/05/2013 11:11 3 (specimen) AM CDT 11:15 AM CDT Mushtaq Cleary MD CHEMISTRY ORDERABLE Performing Organization Address City/[facility]/ZIP Code Phon e Number [facility] [address] [place], [place] [address] [facility] [address] [place], [place] [address] (ABNORMAL) Protime & INR (03/05/2013 4:39 AM CDT)Only the most recent of2 resultswithin the time period is included. athologist Signature PROTIME 9.9 (L) 10.0 - 13.0 03/05/2013 [facility] NAM[facility] sec. 5:02 AM CDT LABORATORY INR 1.0 1.0 - 1.2 03/05/2013 [facility] NAM[facility] 5:02 AM CDT LABORATORY Specimen Anatomical Collection Method Collection Time Receive d Time (Source) Location / / Volume Laterality Blood specimen 03/05/2013 4:39 AM 013 4:44 (specimen) CDT AM CDT Mushtaq Cleary MD COAGULATION ORDERABLE Performing Organization Address City/State/ZIP Code Phon e Number [facility] [address] [place] [address] [phone] [facility] [address] [place] [address] ADMIT (MRSA) Nasal Culture (03/04/2013 10:25 PM CDT) [facility] gist Method Time Signature Admit MRSA No Methicillin 03/06/2013 [place] Culture resistant 10:17 AM [place] Staph. aureus CDT LABORATORY (MRSA) isolated. Specimen Anatomical Collection Method Collection Time Receive d Time (Source) Location / / Volume Laterality Specimen from 03/04/2013 10:25 03/04/2013 internal nose PM CDT 10:33 PM CDT (specimen) Izabela Pierson RN MICROBIOLOGY ORDERABLE Performing Organization Address City/State/ZIP Code Phon e Number [facility] [address] [place] [address] [facility] [address] 5542 XR HAND [...] Type and Screen (03/04/2013 7:30 PM CDT) [facility] Method Time Signature GROUP AND RH A Positive 03/04/2013 [facility] 8:26 PM CDT ANTIBODY Negative 03/04/2013 [facility] SCREEN 8:26 PM CDT Specimen Anatomical Collection Method Collection Time Receive d Time (Source) Location / / Volume Laterality Blood specimen 03/04/2013 7:30 PM 013 7:34 (specimen) CDT PM CDT Faizan Fishman MD BLOOD BANK ORDERABLE Performing Organization Address City/[facility]/ZIP Code Phon e [place] [address] [address] [facility] HCLL (ABNORMAL) Alcohol (ETOH), Blood (03/04/2013 7:30 PM CDT) P athologist Signature ALCOHOL 36 (H) <6 mg/dL 03/04/2013 [facility] NAM[facility] (ETOH), PLASMA 7:57 PM CDT LABORATORY Specimen Anatomical Collection Method Collection Time Receive d Time (Source) Location / / Volume Laterality Blood specimen 03/04/2013 7:30 PM 013 7:34 (specimen) CDT PM CDT Faizan Fishman MD CHEMISTRY ORDERABLE Performing Organization Address City/[facility]/ZIP Code Phon e Number [facility] [address] [place] [address] [phone] [address] (ABNORMAL) Gases Venous Peripheral (03/04/2013 7:30 PM CDT) Analysis Performed At Patho logist Time Signature PH VENOUS 7.34 7.30 - 03/04/2013 [facility] NAMED [facility] 7.40 7:57 PM CDT LABORATORY 02 SAT VENOUS 87.5 (H) 60.0 - 03/04/2013 [facility] NAMED [facility] 80.0 % 7:57 PM CDT LABORATORY PO2 VENOUS 55 (L) 75 - 100 03/04/2013 [facility] NAMED [facility] mm Hg 7:57 PM CDT LABORATORY BASE EXCESS -3.4 (L) -3.0 - 2.0 03/04/2013 [facility] NAMED [facility] VENOUS mMol/L 7:57 PM CDT LABORATORY PCO2 VENOUS 43 36 - 51 mm 03/04/2013 [facility] NAMED [facility] Hg 7:57 PM CDT LABORATORY HCO3 VENOUS 22 22 - 29 03/04/2013 [facility] NAMED [facility] mMol/L 7:57 PM CDT LABORATORY Specimen Anatomical Collection Method Collection Time Receive d Time (Source) Location / / Volume Laterality Blood specimen 03/04/2013 7:30 PM 013 7:34 (specimen) CDT PM CDT Faizan Fishman MD CHEMISTRY ORDERABLE Performing Organization Address City/State/ZIP Code Phon e Number [facility] [address] [place] [address] [facility] [address] [place], [place] [address] (ABNORMAL) Lactic Acid (03/04/2013 7:30 PM CDT) athologist Signature LACTIC ACID 2.3 (H) 0.7 - 2.1 03/04/2013 [facility] CENTER mMol/L 7:38 PM CDT LABORATORY Specimen Anatomical Collection Method Collection Time Receive d Time (Source) Location / / Volume Laterality Blood specimen 03/04/2013 7:30 PM 013 7:34 (specimen) CDT PM CDT Faizan Fishman MD CHEMISTRY ORDERABLE Performing Organization Address City/State/ZIP Code Phon e Number [facility] [address] [place] [address] [facility] [address] [place], [place] [address] Trauma / Stroke Creat / GFR (03/04/2013 7:30 PM CDT) P athologist Signature EST GFR >60 >60 mL/min 03/04/2013 [facility] NAMED [facility] (CKD-EPI) 7:45 PM CDT LABORATORY EST GFR IF >60 >60 mL/min 03/04/2013 [facility] NAMED [facility] AM 7:45 PM CDT LABORATORY CREATININE 0.80 0.40 - 03/04/2013 [facility] NAMED [facility] 1.10 mg/dL 7:45 PM CDT LABORATORY Specimen Anatomical Collection Method Collection Time Receive d Time (Source) Location / / Volume Laterality Blood specimen 03/04/2013 7:30 PM 013 7:34 (specimen) CDT PM CDT Narrative [facility] NAMED [facility] LABORATORY - 03/04/2013 7 :45 PM CDT Person Notified: JULIÁN , Unit: CT. ?? Time Notified: 7:45 PM Faizan Fishman MD CHEMISTRY ORDERABLE Performing Organization Address City/State/ZIP Code Phon e Number [facility] [address] [place] [address] [phone] [facility] [address] [place], [place] [address] Glucose, Serum (03/04/2013 7:30 PM CDT) athologist [facility] [place] GLUCOSE 85 60 - 100 03/04/2013 [facility] NAMED [facility] mg/dL 7:48 PM CDT LABORATORY Specimen Anatomical Collection Method Collection Time Receive d Time (Source) Location / / Volume Laterality Blood specimen 03/04/2013 7:30 PM 013 7:34 (specimen) CDT PM CDT Faizan Fishman MD CHEMISTRY ORDERABLE Performing Organization Address City/State/ZIP Code Phon e Number [facility] [address] [place] [address] [facility] [address] [place] [address] Platelet Count (03/04/2013 7:30 PM CDT) [facility] Hospitalologist [facility] [place] PLATELET COUNT 196 150 - 400 03/04/2013 [facility] NAMED [facility] K/uL 7:41 PM CDT LABORATORY Specimen Anatomical Collection Method Collection Time Receive d Time (Source) Location / / Volume Laterality Blood specimen 03/04/2013 7:30 PM 013 7:34 (specimen) CDT PM CDT Faizan Fishman MD HEMATOLOGY ORDERABLE Performing Organization Address City/[facility]/ZIP Code Phon e Number [facility] [address] [place] [address] [phone] [facility] [address] [place] [address] Hemoglobin (03/04/2013 7:30 PM CDT) athologist [facility] [place] HEMOGLOBIN 12.4 12.0 - 16.0 03/04/2013 [facility] NAMED [facility] gm/dL 7:41 PM CDT LABORATORY Specimen Anatomical Collection Method Collection Time Receive d Time (Source) Location / / Volume Laterality Blood specimen 03/04/2013 7:30 PM 013 7:34 (specimen) CDT PM CDT Faizan Fishman MD HEMATOLOGY ORDERABLE Performing Organization Address City/State/ZIP Code Phon e Number [facility] [address] [place] [address] [phone] [facility] [address] [facility] [place], [place] [address] ABORh Confirm (Lab Use Only) [...] Organization Address City/State/ZIP Code Phon e Number [facility] [place] [address] [address] [facility] Extra Tube-Blood Bank (Lab Use Only) (03/04/2013 7:27 PM CDT) Specimen Anatomical Collection Method Collection Time Receive d Time (Source) Location / / Volume Laterality Blood specimen 03/04/2013 7:27 PM 013 7:36 (specimen) CDT PM CDT Faizan Fishman MD BLOOD BANK ORDERABLE Performing Organization Address City/State/ZIP Code Phon e Number [facility] [address] [place] [address] LABORATORY documented in this encounter Visit Diagnoses [...] 0937, Until Sole 03/15/13 at 1945, for ykfaterf-gz-bomxwy pain or if not tolerating oral intake [...] 0509 documented in this encounter Care Teams Guard Museum Relationship Specialty Start Date End Date Line, Ed Referral PCP - General 03/04/13 07/18/13 ED REFERRAL LINE - ED USE ONLY Line, Ed Referral PCP - Primary Care Clinic 03/04/13 ED REFERRAL LINE - ED USE ONLY documented as of this encounter
--- OUTSIDE RECORDS SUMMARY | 2022-06-18 09:30 | XMS_ITS | Encounter Summary ---
:1975 Author Organization [place] Address [address] [place] [address]. [place] [address] Care Team Providers Name Role Phone Jeremy Gibbs MD Unavailable Jose Monahan MD Unavailable Lise Mcqueen MD Unavailable [phone] Mar Alfaro Primary Care Provider Ta Lane OD Unavailable Reason for Visit Reason Onset Date Comments Wanting script mailed. 04/23/2022 Encounter Details Date Type Department Care Team Description 04/23/[address] [facility] [address] , Wanting script mailed. Clinic - [place] [id number] [facility] [address] [place] [address] [phone] Social History Tobacco Use Types Packs/Day Years [...] Hillary Conte - 04/23/2022 2:40 PM CDT [facility] Call Center Phone Message May a [...] on filedocumented in this encounter Care Teams Expanded Duty Dental Assistant Relationship Specialty Start Date End Date Mar Alfaro PCP - General 05/31/17 [facility] [address] [place] [address] Jeremy Gibbs MD MD Ophthalmology 12/10/14 Jose Monahan MD MD Ophthalmology 12/10/14 Lise Mcqueen MD Ophthalmology 05/31/[address] [place] [address], OD Assigned Surgical Provider 01/02/22 [address] [place] [address] documented as of this encounter
--- OUTSIDE RECORDS SUMMARY | 2022-06-18 09:30 | XMS_ITS | Encounter Summary ---
:1975 Author Organization [place] Address [address] [place] [address] Care Team Providers Name Role Phone Jeremy Gibbs MD Unavailable Jose Monahan MD Unavailable Lise Mcqueen MD Unavailable [phone] Mar Alfaro Primary Care Provider Jonh [...] on filedocumented in this encounter Care Teams Airplane Gas Tank Liner Assembler Relationship Specialty Start Date End Date Mar Alfaro PCP - General 05/31/17 [facility] [address] [place] [address] Jeremy Gibbs MD MD Ophthalmology 12/10/14 Jose Monahan MD MD Ophthalmology 12/10/14 Lise Mcqueen MD Ophthalmology 05/31/[address] [place] [address] Jonh Garcia MD Assigned Surgical Provider 10/12/20 909 [place] [address] documented as of this encounter
--- OUTSIDE RECORDS SUMMARY | 2022-06-18 09:30 | XMS_ITS | Encounter Summary ---
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 [address] [place] [address] [phone] Social History Tobacco Use Types Packs/Day Years [...] will not likely be feasible for time signal wirer wear given difference in eye posturing at [...] field documented in this encounter Care Teams Sign Designer Relationship Specialty Start Date End Date Shukri Alfaroher PCP - General 05/31/17 [facility] [address] [place] [address] Jeremy Gibbs MD MD Ophthalmology 12/10/14 Jose Monahan MD MD Ophthalmology 12/10/14 Lise Mcqueen MD Ophthalmology 05/31/[address] [place] [address] Jonh Garcia MD Assigned Surgical Provider 10/12/20 909 [place] [address] documented as of this encounter
--- OUTSIDE RECORDS SUMMARY | 2022-06-18 09:30 | XMS_ITS | Encounter Summary ---
:1975 Author Organization [place] Address [address] [place] [address] Care Team Providers Name Role Phone Jeremy Gibbs MD Unavailable Jose Monahan MD Unavailable Lise Mcqueen MD Unavailable [phone] Mar Alfaro Primary Care Provider Jonh [...] on filedocumented in this encounter Care Teams Pelt Dropper Relationship Specialty Start Date End Date Mar Alfaro PCP - General 05/31/17 [facility] [address] [place] [address] Jeremy Gibbs MD MD Ophthalmology 12/10/14 Jose Monahan MD MD Ophthalmology 12/10/14 Lise Mcqueen MD Ophthalmology 05/31/[address] [place] [address] Jonh Garcia MD Assigned Surgical Provider 10/12/20 [address] [place] [address] documented as of this encounter
--- OUTSIDE RECORDS SUMMARY | 2022-06-18 09:31 | XMS_ITS | Encounter Summary ---
:1975 Author Organization [place] Address [address] [place] [address] Care Team Providers Name Role Phone Jeremy Gibbs MD Unavailable Jose Monahan MD Unavailable Lise Mcqueen MD Unavailable [phone] Mar Alfaro Primary Care Provider Jonh [...] on filedocumented in this encounter Care Teams Cotton Jammer Relationship Specialty Start Date End Date Mar Alfaro PCP - General 05/31/17 [facility] [address] [place] [address] Jeremy Gibbs MD MD Ophthalmology 12/10/14 Jose Monahan MD MD Ophthalmology 12/10/14 Lise Mcqueen MD Ophthalmology 05/31/[address] [place] [address] Jonh Garcia MD Assigned Surgical Provider 10/12/20 909 [place] [address] documented as of this encounter
--- OUTSIDE RECORDS SUMMARY | 2022-06-18 09:31 | XMS_ITS | Encounter Summary ---
:1975 Author Organization [place] Address [address] [place] [address]. [place] [address] Care Team Providers Name Role Phone Jeremy Gibbs MD Unavailable Jose Monahan MD Unavailable Lise Mcqueen MD Unavailable [phone] Mar Alfaro Primary Care Provider Jonh Garcia MD Unavailable Reason for Visit Reason Onset Date Comments Previsit 11/10/2020 Encounter Details Date Type Department Care Team Description 11/10/2020 PRE VISIT [facility] Maliha Casillas, VIOLET Previsit Preoperative Assessment [address] [place] [address] [phone] Social History Tobacco Use Types Packs/Day Years [...] on filedocumented in this encounter Care Teams Transformer Coil Winder Relationship Specialty Start Date End Date Mar Alfaro PCP - General 05/31/17 [facility] [address] [place] [address] Jeremy Gibbs MD MD Ophthalmology 12/10/14 Jose Monahan MD MD Ophthalmology 12/10/14 Lise Mcqueen MD Ophthalmology 05/31/17 [address] [facility] [address] [address] Jonh Garcia MD Assigned Surgical Provider 10/12/20 [address]09 [place] [address] documented as of this encounter
--- OUTSIDE RECORDS SUMMARY | 2022-06-18 09:31 | XMS_ITS | Encounter Summary ---
:1975 Author Organization [place] Address [address] [place] [address]. [place] [address] Care Team Providers Name Role Phone Jeremy Gibbs MD Unavailable Jose Monahan MD Unavailable Lies Mcqueen MD Unavailable [phone] Mar Alfaro Primary Care Provider Jonh Garcia MD Unavailable Encounter Details Date Type Department Care Team Description 11/12/2020 Anesthesia Event [facility] Librado Argueta MD [address] [place], [place] [address] OR Racquel Martinez MD [facility] [address] [facility] [address] [place], [place] [address] 9[address] [facility] SE [address]th [place] [address] Anesthesia Record Procedure Summary Procedure [...] Last vitals prior to Anesthesia Care Transfer: DIVISION SERVICE MANAGER VITALS 11/12/2020 1347 - 11/12/2020 1447 11/12/2020 [...] and realistic alternatives discussed. Questions answered and patient/medical field representative(s) expressed understanding. - Discussed with: Patient Postoperative Care Pain management: Oral pain medications. PONV prophylaxis: Ondansetron (or other 5HT-3), Dexamethasone or Solumedrol Comments: PAC Discussion and Assessment ASA Classification: 2 Case is suitable for: ASC Anesthetic techniques and relevant risks discussed: MAC with GA as backup PAC Resident/DADO OPERATOR Anesthesia Assessment: Type of service:?? Video Visit [...] with Jonh Garcia MD on 11/12/2020 at [facility] under MAC with local. Ms. Peres was [...] she had an emergent laparoscopic cholecystectomy at [facility] on 11/06/2020. She entered through the [...] APRN NCP Date: 11/10/2020 Maliha Casillas APRN CABINET WORKER documented in this encounter Miscellaneous Notes Addendum [...] (Last set prior to Anesthesia Care Transfer) DIVISION SERVICE MANAGER VITALS 11/12/2020 1347 - 11/12/2020 1420 11/12/2020 [...] Intra-op documented in this encounter Care Teams Rail Switchman Relationship Specialty Start Date End Date Mar Alfaro PCP - General 05/31/17 [facility] [address] [place] [address] Jeremy Gibbs MD MD Ophthalmology 12/10/14 Jose Monahan MD MD Ophthalmology 12/10/14 Lise Mcqueen MD Ophthalmology 05/31/[address] [id number] Jonh Garcia MD Assigned Surgical Provider 10/12/20 9 [place], [place] [address] documented as of this encounter
--- OUTSIDE RECORDS SUMMARY | 2022-06-18 09:31 | XMS_ITS | Encounter Summary ---
:1975 Author Organization [place] Address [address] [place] [address] Care Team Providers Name Role Phone Jeremy Gibbs MD Unavailable Jose Monahan MD Unavailable Lise Mcqueen MD Unavailable [phone] Mar Alfaro Primary Care Provider Encounter [...] with No / Unsure 07/22/2020 11:30 AM GUEST RELATIONS REPRESENTATIVE someone who was confirmed or suspected to have Coronavirus / COVID-19? documented as of this encounter Plan of Treatment Not on filedocumented as of this encounter Visit Diagnoses Not on filedocumented in this encounter Care Teams Media Consultant Outside Sales Relationship Specialty Start Date End Date Mar Alfaro PCP - General 05/31/17 [facility] [address] [place] [address] Jeremy Gibbs MD MD Ophthalmology 12/10/14 Jose Monahan MD MD Ophthalmology 12/10/14 Lise Mcqueen MD MD Ophthalmology 05/31/17 [address] [facility] [address] [address] documented as of this encounter
--- OUTSIDE RECORDS SUMMARY | 2022-06-18 09:31 | XMS_ITS | Encounter Summary ---
:1975 Author Organization [place] Address [address] [place] [address]. [place] [address] Care Team Providers Name Role Phone Jeremy Gibbs MD Unavailable Jose Monahan MD Unavailable Lise Mcqueen MD Unavailable [phone] Mar Alfaro Primary Care Provider Jonh Garcia MD Unavailable Encounter Details Date Type Department Care Team Description 10/24/2020 Telephone [facility] Mirta Fall MD Clinic - [facility] [employer] [place] [address] [phone] Social History Tobacco Use Types Packs/Day Years [...] with No / Unsure 10/01/2020 1:25 PM MOLD YARD SUPERVISOR someone who was confirmed or suspected [...] on filedocumented in this encounter Care Teams Mouse Breeder Relationship Specialty Start Date End Date Mar Alfaro PCP - General 05/31/17 [facility] [address] [place] [address] Jeremy Gibbs MD MD Ophthalmology 12/10/14 Jose Monahan MD MD Ophthalmology 12/10/14 Lise Mcqueen MD Ophthalmology 05/31/[address] [place] [address] Jonh Garcia MD Assigned Surgical Provider 10/12/20 [address] [place] [address] documented as of this encounter
--- OUTSIDE RECORDS SUMMARY | 2022-06-18 09:31 | XMS_ITS | Encounter Summary ---
:1975 Author Organization [place] Address [address] [place] [address] Care Team Providers Name Role Phone Jeremy Gibbs MD Unavailable Jose Monahan MD Unavailable Lise Mcqueen MD Unavailable [phone] Mar Alfaro Primary Care Provider Encounter [...] on filedocumented in this encounter Care Teams Sdv Pilot/Navigator/Dds Operator Relationship Specialty Start Date End Date Mar Alfaro PCP - General 05/31/17 [facility] [address] [place] [address] Jeremy Gibbs MD MD Ophthalmology 12/10/14 Jose Monahan MD MD Ophthalmology 12/10/14 Lise Mcqueen MD MD Ophthalmology 05/31/17 [address] [facility] [address] [place] [address] documented as of this encounter
--- OUTSIDE RECORDS SUMMARY | 2022-06-18 09:31 | XMS_ITS | Encounter Summary ---
:1975 Author Organization [place] Address [address] [place] [address] Care Team Providers Name Role Phone Jeremy Gibbs MD Unavailable Jose Monahan MD Unavailable Lise Mcqueen MD Unavailable [phone] Mar Alfaro Primary Care Provider Jonh Garcia MD Unavailable Ta Lane OD Unavailable Reason for Visit Reason Onset Date Comments Patient Request 10/21/2020 Ptosis surgery Encounter Details Date Type Department Care Team Description 10/21/2020 Telephone [facility] Eye Jonh Garcia P atient Request (Ptosis Clinic - Dick SOLO surgery) [address] [place] [phone] Social History Tobacco Use Types [...] with No / Unsure 10/01/2020 1:25 PM COUNTRY DIRECTOR someone who was confirmed or suspected to have Coronavirus / COVID-19? documented as of this encounter Miscellaneous Notes Telephone Encounter - Deborah Coto RN - 10/21/2020 3:[address] Fall will discuss with Dr. Garcia tomorrow and call patient back. Deborah Coto RN RN 3:37 PM 10/21/20 Telephone Encounter - Maggie Martinez - 10/21/2020 1:11 PM CDT [facility] Phone Message May a detailed message [...] Message routed to: [facility] ([facility]): EYE Travel Screening: Not Applicable documented in this encounter Plan of Treatment Not on filedocumented as of this encounter Visit Diagnoses Not on filedocumented in this encounter Care Teams Language Specialist Relationship Specialty Start Date End Date Mar Alfaro PCP - General 05/31/17 [facility] [address] [place] [address] Jeremy Gibbs MD MD Ophthalmology 12/10/14 Jose Monahan MD MD Ophthalmology 12/10/14 Lise Mcqueen MD Ophthalmology 05/31/17 [address] [facility] [address] [address] Jonh Garcia MD Assigned Surgical Provider 10/12/20 [address] [place], [place] [id number] Ta [address], OD Assigned Surgical Provider 01/02/[address] [place] [address] documented as of this encounter
--- OUTSIDE RECORDS SUMMARY | 2022-06-18 09:31 | XMS_ITS | Encounter Summary ---
:1975 Author Organization [place] Address [address] [place] [address] Care Team Providers Name Role Phone Jeremy Gibbs MD Unavailable Jose Monahan MD Unavailable Lise Mcqueen MD Unavailable [phone] Mar Alfaro Primary Care Provider Lise Mcqueen MD Unavailable [phone] Encounter Details Date Type Department Care [...] with No / Unsure 10/01/2020 1:25 PM FINANCIAL SYSTEMS ADMINISTRATOR someone who was confirmed or suspected to have Coronavirus / COVID-19? documented as of this encounter Plan of Treatment Not on filedocumented as of this encounter Visit Diagnoses Not on filedocumented in this encounter Care Teams Bridge/Structure Inspection Team Leader Relationship Specialty Start Date End Date Mar Alfaro PCP - General 05/31/17 [facility] [address] [place] [address] Jeremy Gibbs MD MD Ophthalmology 12/10/14 Jose Monahan MD MD Ophthalmology 12/10/14 Lise Mcqueen MD Ophthalmology 05/31/17 [facility] [address] [place] [address] Lise Mcqueen, Assigned Surgical Provider [address] [place] [address] documented as of this encounter
--- OUTSIDE RECORDS SUMMARY | 2022-06-18 09:31 | XMS_ITS | Encounter Summary ---
:1975 Author Organization [place] Address [address] [place] [address]. 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 (Primary Dx); Eye Clinic - Jennings T, OD Alternating esotropia; [address] [place] [address] Myopia of both eyes 4th [place] [address] [phone] Social History Tobacco Use Types Packs/Day Years [...] Name Priority Date/Time Associated Diagnosis Comme nts IN REFRACTION Routine 10/26/2021 9:11 AM CDT Myopia of both ey es documented in this encounter Visit Diagnoses Diagnosis 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
--- OUTSIDE RECORDS SUMMARY | 2022-06-18 09:31 | XMS_ITS | Encounter Summary ---
:1975 Author Organization [place] Address [address] [place] [address]. [place] [address] Care Team Providers Name Role Phone Jeremy Gibbs MD Unavailable Jose Monahan MD Unavailable Lise Mcqueen MD Unavailable [phone] Mar Alfaro Primary Care Provider Jonh Garcia MD Unavailable Reason for Visit Reason Comments Pre-Op Exam Encounter Details Date Type Department Care Team Description 11/10/2020 Virtual Visit [facility] Maliha Casillas Pre-op examination Preoperative Assessment VIOLET Ho SOLAR ENERGY ENGINEER (Primary Dx) [address] [place] [address] [phone] Anesthesia Record Procedure Summary Procedure Name Responsible [...] visitors. All visitors must wear face mask. Ferryboat Operator parking is available for anyone with mobility limitations or disabilities. ([employer] 24 hours/ 7 days a week; [employer] 7 am- 3:30 pm, Mon- Fri) Please come to: [facility] [address] [address] - Proceed to the 5th floor to check into the Ambulatory Surgery Center. >> There will be patient concierges on the 1st and 5th floor, for assistance or an escort, ifyou would like. >> Please call [phone] with any questions. What can I eat [...] or fragrance. - No makeup or fingernail greek. - Bring your ID and insurance card. - All patients are required to have a Covid-19 test within 4 days of surgery/procedure. -Patients will be contacted by the [facility] scheduling team within 1 week of surgery to make an appointment. - Patients may call the Scheduling team at [phone] if they have not been scheduled within [...] contact the Pre Admission Nursing Office at [phone]. - If you have health changes between [...] be resent by: Text to cell phone: [phone] Will anyone else be joining your video visit? No HPI Review of Systems Objective Vitals - Patient Reported Pain Score: Moderate Pain (5) Pain Loc: Abdomen Physical Exam N Dk LUGO documented in this encounter H&P Notes Maliha Casillas APRN SOLAR ENERGY ENGINEER - 11/10/2020 2:30 PM CDT Images from [...] she had an emergent laparoscopic cholecystectomy at [facility] on 11/06/2020. She entered through the [...] ??? Fish Oil-Cholecalciferol (FISH OIL + D3) 3977-4435 MG-UNIT CAPS Take 1 capsule by mouth [...] file Gets together: Not on file Attends jewish service: Not on file Active member of [...] Relation Age of Onset ??? Cardiovascular Father [place] twice ??? Allergies Brother spring ??? Allergies [...] - Jonh Batres MD on 11/12/2020 at [facility] under MAC with local. She has the [...] Casillas APRN CNP Preoperative Assessment Center [facility] documented in this encounter Plan of Treatment Not on filedocumented as of this encounter Visit Diagnoses Diagnosis Pre-op examination - Primary Preoperative examination, unspecified documented in this encounter Care Teams Command And Control Specialist Relationship Specialty Start Date End Date Mar Alfaro PCP - General 05/31/17 [facility] [address] [place] [address] Jeremy Gibbs MD MD Ophthalmology 12/10/14 Jose Monahan MD MD Ophthalmology 12/10/14 Lise Mcqueen MD Ophthalmology 05/31/[address] [place] [address] Jonh Garcia MD Assigned Surgical Provider 10/12/20 9 [place] [address] documented as of this encounter
--- OUTSIDE RECORDS SUMMARY | 2022-06-18 09:31 | XMS_ITS | Encounter Summary ---
:1975 Author Organization [place] Address [address] [place] [address]. [place] [address] Care Team Providers Name Role Phone Jeremy Gibbs MD Unavailable Jose Monahan MD Unavailable Lise Mcqueen MD Unavailable [phone] Mar Alfaro Primary Care Provider Jonh Garcia MD Unavailable Encounter Details Date Type Department Care Team Description 11/13/2020 Telephone [facility] Eye Clinic Leonora Javier MD - [id number] [place] [address] [place] [address] [place] [address] [phone] Social History Tobacco Use Types Packs/Day [...] Leonora Dahl MD Ophthalmology Resident, PGY-2 [facility] documented in this encounter Plan of Treatment Not on filedocumented as of this encounter Visit Diagnoses Not on filedocumented in this encounter Care Teams Forming Tube Selector Relationship Specialty Start Date End Date Mar Alfaro PCP - General 05/31/17 [facility] [address] [place] [address] Jeremy Gibbs MD MD Ophthalmology 12/10/14 Jose Monahan MD MD Ophthalmology 12/10/14 Lise Mcqueen MD Ophthalmology 05/31/[address] [facility] [address] [address] Jonh Garcia MD Assigned Surgical Provider 10/12/20 [address] [place] [address] documented as of this encounter
--- OUTSIDE RECORDS SUMMARY | 2022-06-18 09:31 | XMS_ITS | Encounter Summary ---
:1975 Author Organization [place] Address [address] [place] [address] Care Team Providers Name Role Phone Jeremy Gibbs MD Unavailable Jose Monahan MD Unavailable Lise Mcqueen MD Unavailable [phone] Mar Alfaro Primary Care Provider Lise Mcqueen MD Unavailable [phone] Reason for Visit Reason Onset Date Comments Glasses 10/07/2020 Rx for glasses Encounter Details Date Type Department Care Team Description 10/07/2020 Telephone [facility] Eye Jonh Garcia G lasses (Rx for Clinic - Dick SOLO glasses) [address] [place] [phone] Social History Tobacco Use Types [...] with No / Unsure 10/01/2020 1:25 PM SPEECH AND LANGUAGE CLINICIAN someone who was confirmed or suspected to [...] to fax it to [employer] in [place]. . She doesn't have the ability to print it from her MyChart. Thank you. Action Taken: Message routed to: [facility] EYE Travel Screening: Not Applicable CH AND LANGUAGE CLINICIAN documented in this encounter Plan of Treatment Not on filedocumented as of this encounter Visit Diagnoses Not on filedocumented in this encounter Care Teams Locator Specialist Relationship Specialty Start Date End Date Mar Alfaro PCP - General 05/31/17 [facility] [address] [place] [address] Jeremy Gibbs MD MD Ophthalmology 12/10/14 Jose Monahan MD MD Ophthalmology 12/10/14 Lise Mcqueen MD Ophthalmology 05/31/17 [address] [facility] [address] [place] [id number] Lise Mcqueen, Assigned Surgical Provider 10/11/20 [address] [facility] [address] [place] [phone] documented as of this encounter
--- OUTSIDE RECORDS SUMMARY | 2022-06-18 09:31 | XMS_ITS | Encounter Summary ---
:1975 Author Organization [place] Address [address] [place] [address]. [place] [address] Care Team Providers Name Role Phone Jeremy Gibbs MD Unavailable Jose Monahan MD Unavailable Lise Mcqueen MD Unavailable [phone] Mar Alfaro Primary Care Provider Lise Mcqueen MD Unavailable [phone] Encounter Details Date Type Department Care Team Description 09/30/2020 Telephone [facility] Eye Clinic Trace Jonh richardson MD [address] Floor [place] [phone] Social History Tobacco Use Types Packs/Day Years [...] patient and outlined visitor restrictions. Kassandra Collins OR CLIENT ADVISOR documented in this encounter Plan of Treatment Not on filedocumented as of this encounter Visit Diagnoses Not on filedocumented in this encounter Care Teams Drugless Physician Relationship Specialty Start Date End Date Mar Alfaro PCP - General 05/31/17 [facility] [address] [place] [address] Jeremy Gibbs MD MD Ophthalmology 12/10/14 Jose Monahan MD MD Ophthalmology 12/10/14 Lise Mcqueen MD Ophthalmology 05/31/17 [address] [facility] [address] [place] [address] Lise Mcqueen, Assigned Surgical Provider [address] [facility] [address] [place] [address] documented as of this encounter
--- OUTSIDE RECORDS SUMMARY | 2022-06-18 09:31 | XMS_ITS | Encounter Summary ---
:1975 Author Organization [place] Address [address] [place] [address] Care Team Providers Name Role Phone Jeremy Gibbs MD Unavailable Jose Monahan MD Unavailable Lise Mcqueen MD Unavailable [phone] Mar Alfaro Primary Care Provider Jonh Garcia MD Unavailable Ta Lane OD Unavailable Encounter Details Date Type Department Care Team Description 11/05/2020 External Order [facility] Outside, Provider Results Transplant Clinic [address] [place] [address] Social History Tobacco Use Types [...] Edith Benitez on 11/14/2020. Testing performed by [facility] [address] [facility] [address] Patient Reported LABORATORY Performing Organization Address City/State/ZIP Code Phon e Number AZRA PFT COVID-19 EXTERNAL COVID-19 [place] [address], [facility] RESULTS Result Scanned into Patient Record by Sookasa Refer to Result Comment/Narrative for exact performing laboratory documented in this encounter Visit Diagnoses Not on filedocumented in this encounter Care Teams Munitions Factory Worker Relationship Specialty Start Date End Date Mar Alfaro PCP - General 05/31/17 [facility] [address] [place] [address] Jeremy Gibbs MD MD Ophthalmology 12/10/14 Jose Monahan MD MD Ophthalmology 12/10/14 Lise Mcqueen MD Ophthalmology 05/31/[address] [place] [phone] Jonh Garcia MD Assigned Surgical Provider 10/12/[address] [place] [address] OD Assigned Surgical Provider 01/02/[address] [place] [phone] documented as of this encounter
--- OUTSIDE RECORDS SUMMARY | 2022-06-18 09:31 | XMS_ITS | Encounter Summary ---
:1975 Author Organization [place] Address [address] [place] [address] Care Team Providers Name Role Phone Jeremy Gibbs MD Unavailable Jose Monahan MD Unavailable Lise Mcqueen MD Unavailable [phone] Mar Alfaro Primary Care Provider Jonh Garcia MD Unavailable Encounter Details Date Type Department Care Team Description 10/28/2020 Orders Only [facility] Eye Jonh Garcia E ncounter for Clinic - Dick SOLO screening for other [address] viral diseases 4th [place], [place] [phone] Social History Tobacco Use Types Packs/Day [...] with No / Unsure 10/01/2020 1:25 PM LABORATORY IMMUNOLOGIST someone who was confirmed or suspected to have Coronavirus / COVID-19? documented as of this encounter Plan of Treatment Not on filedocumented as of this encounter Visit Diagnoses Diagnosis Encounter for screening for other viral diseases documented in this encounter Care Teams Polisher Implant Relationship Specialty Start Date End Date Mar Alfaro PCP - General 05/31/[address] [place] [address] Jeremy Gibbs MD MD Ophthalmology 12/10/14 Jose Monahan MD MD Ophthalmology 12/10/14 Lise Mcqueen MD Ophthalmology 05/31/[address] [place] [address] John Garcia MD Assigned Surgical Provider 10/12/20 909 [place] [address] documented as of this encounter
--- OUTSIDE RECORDS SUMMARY | 2022-06-18 09:31 | XMS_ITS | Encounter Summary ---
:1975 Author Organization [place] Address [address] [place] [address] Care Team Providers Name Role Phone Jeremy Gibbs MD Unavailable Jose Monahan MD Unavailable Lise Mcqueen MD Unavailable [phone] Mar Alfaro Primary Care Provider Jonh Garcia MD Unavailable Reason for Visit Reason Onset Date Comments Appointment 12/04/2020 Post-OP IN-CLINIC Encounter Details Date Type Department Care Team Description 12/04/2020 Telephone [facility] Eye Jonh Garcia A ppointment (Post-OP Clinic - Dick SOLO IN-CLINIC) [address] [place] [phone] Social History Tobacco Use Types Packs/Day [...] on filedocumented in this encounter Care Teams Flat Finisher Relationship Specialty Start Date End Date Mar Alfaro PCP - General 05/31/17 [facility] [address] [place] [address] Jeremy Gibbs MD MD Ophthalmology 12/10/14 Jose Monahan MD MD Ophthalmology 12/10/14 Lise Mcqueen MD Ophthalmology 05/31/[address] [place] [address] Jonh Garcia MD Assigned Surgical Provider 10/12/20 909 [place] [address] documented as of this encounter
--- OUTSIDE RECORDS SUMMARY | 2022-06-18 09:31 | XMS_ITS | Encounter Summary ---
:1975 Author Organization [place] Address [address] [facility] [place] [address] Care Team Providers Name Role Phone Jeremy Gibbs MD Unavailable Jose Monahan MD Unavailable Lise Mcqueen MD Unavailable [phone] Mar Alfaro Primary Care Provider Reason [...] Department Care Team Description 07/22/2020 Office Visit [facility] Lise Mcqueen Left abd ucens nerve palsy (Primary Dx); Clinic Peds Eye MD Mary Lou Diplopia; [address] [place] [address] Alternating esotropia; [facility] [place] 3RD FL Hypertropia of right eye 3rd [place] [phone] Social History Tobacco Use Types Packs/Day Years [...] with No / Unsure 07/22/2020 11:30 AM CLAY ARTIST someone who was confirmed or suspected to have Coronavirus / COVID-19? documented as of this encounter Progress Notes Lsie Mcqueen MD - 07/22/2020 11:40 AM CST [...] family.- Lise Mcqueen MD 08/19/2020 10:51 AM ARTIST documented in this encounter Nursing Notes Geri [...] Comments Still complains of left sided hemianopsia. ARTIST documented in this encounter Plan of Treatment Not on filedocumented as of this encounter Procedures Procedure Name Priority Date/Time Associated Diagnosis Comme nts SENSORIMOTOR Routine 08/19/2020 10:53 AM Left abducens nerve R esults for this CLAY ARTIST palsy procedure are in the Diplopia results section . documented in this encounter Results Sensorimotor (08/19/2020 10:53 AM CLAY ARTIST) Narrative Lise Mcqueen MD - 08/19/2020 10:53 AM CLAY ARTIST Performed by: Geri [place], [place] . Patient [...] eye documented in this encounter Care Teams Records Assistant Relationship Specialty Start Date End Date Mar Alfaro PCP - General 05/31/[address] [facility] [address] [place] [address] Jeremy Gibbs MD MD Ophthalmology 12/10/14 Jose Monahan MD MD Ophthalmology 12/10/14 Lise Mcqueen MD MD Ophthalmology 05/31/[address] [place] [address] documented as of this encounter
--- OUTSIDE RECORDS SUMMARY | 2022-06-18 09:31 | XMS_ITS | Encounter Summary ---
:1975 Author Organization [place] Address [address] [place] [address] Care Team Providers Name Role Phone Jeremy Gibbs MD Unavailable Jose Monahan MD Unavailable Lise Mcqueen MD Unavailable [phone] Mar Alfaro Primary Care Provider Jonh [...] contact Unable to assess 09/28/2021 1:16 PM RIGGING AND CONTROLS AIRCRAFT MECHANIC with someone who was confirmed or suspected to have Coronavirus / COVID-19? documented as of this encounter Plan of Treatment Not on filedocumented as of this encounter Visit Diagnoses Not on filedocumented in this encounter Care Teams Senior Principal Process Engineer Relationship Specialty Start Date End Date Mar Alfaro PCP - General 05/31/17 [facility] [address] [place] [address] Jeremy Gibbs MD MD Ophthalmology 12/10/14 Jose Monahan MD MD Ophthalmology 12/10/14 Lise Mcqueen MD Ophthalmology 05/31/[address] [place] [address] Jonh Garcia MD Assigned Surgical Provider 10/12/20 909 [place] [address] documented as of this encounter
--- OUTSIDE RECORDS SUMMARY | 2022-06-18 09:31 | XMS_ITS | Encounter Summary ---
:1975 Author Organization [place] Address [address] [place] [address]. [place] [address] Care Team Providers Name Role Phone Jeremy Gibbs MD Unavailable Jose Monahan MD Unavailable Lise Mcqueen MD Unavailable [phone] Mar Alfaro Primary Care Provider Lise Mcqueen MD Unavailable [phone] Jonh Garcia MD Unavailable Reason for Visit Reason Onset Date Comments Schedule Surgery 10/03/2020 Appointment 10/03/2020 PRE-OP PHYSICAL Encounter Details Date Type Department Care Team Description 10/03/2020 Telephone [facility] Eye Jonh Garcia S [facility] Surgery; Clinic - Dick SOLO Appointment (PRE-OP [address] [facility] [address] [facility] PHYSICAL) 4th Floor [place], [place] [phone] Social History Tobacco Use Types Packs/Day [...] with No / Unsure 10/01/2020 1:25 PM IT SALES REPRESENTATIVE someone who was confirmed or suspected to have Coronavirus / COVID-19? documented as of this encounter Miscellaneous Notes Telephone Encounter - Aurelia Eddy - 11/10/2020 9:53 AM CDT Patient called and advised that she no longer needs the covid test at [facility] on 11/12 at 7 Am. At the Patients requested she has been cancelled from her covid appointment on 11/12 at [facility] Patient reports that she has an appointment scheduled at the [facility] on [address] [facility]. Patient was given the [id number] department number to fax her results [phone]. Patient was also given their direct dial to call to confirm they received her results [phone]. Telephone Encounter - Aurelia Eddy - 11/10/2020 9:03 AM CDT Received patient pre-Op physical paperwork my email today. Patients H&P was faxed to the pre-op nursing department at [phone]. Telephone Encounter - Aurelia Eddy - 11/07/2020 [...] a PAC visit on 11/10 at the [facility] . Patients reports that she will find a place in [place] to get her covid test done. Patient was also reminded that she will need to have her covid test placed on 11/08 of 11/10 in order hermann valid for her surgery procedure. Telephone Encounter - Aurelia Eddy - 10/03/2020 11:13 AM CST Spoke with patient to schedule surgery with Dr. Garcia. Surgery was scheduled on 11/12 at [facility] Patient will have H&P at [facility] Patient is aware a COVID-19 test is needed before their procedure. The test should be with-in 4 daysof their procedure. Test Details: Date 11/10 Location [facility] Patient was advised that she must get her covid test placed on 11/10 in order to be valid for her surgery procedure. Patient was encouraged to get her covid test placed at a [place] location but patient declined due to distance [...] scheduled on 12/01 Patient is aware a national dedicated truck driver/laborer carpentry dock is needed day of surgery. Surgery packet was mailed 10/02, patient has my direct contact information for any further questions. SALES REPRESENTATIVE Telephone Encounter - Aurelia Eddy - 10/03/2020 10:30 AM CST Called patient to schedule procedure with Dr. Garcia, there was no answer. Left message with my direct line [phone]. SALES REPRESENTATIVE documented in this encounter Plan of Treatment Not on filedocumented as of this encounter Visit Diagnoses Not on filedocumented in this encounter Care Teams Hand Stoner Relationship Specialty Start Date End Date Mar Alfaro PCP - General 05/31/17 [facility] [address] [place] [address] Jeremy Gibbs MD MD Ophthalmology 5/5/15 Jsoe Monahan MD MD Ophthalmology 12/10/14 Lise Mcqueen MD Ophthalmology 05/31/[address] [facility] [address] [place] [address] Lise Mcqueen, Assigned Surgical Provider 10/11/[address] [facility] [address] [place] [address] Jonh Garcia MD Assigned Surgical Provider 10/12/20 9[address] [place] [address] documented as of this encounter
--- OUTSIDE RECORDS SUMMARY | 2022-06-18 09:31 | XMS_ITS | Encounter Summary ---
:1975 Author Organization [place] Address [facility], [facility] [facility] [place] [address] Care Team Providers Name Role Phone Jeremy Gibbs MD Unavailable Jose Monahan MD Unavailable Lise Mcqueen MD Unavailable [phone] Mar Alfaro Primary Care Provider Lise Mcqueen MD Unavailable [phone] Reason for Visit Reason Comments Droopy Left Upper Lid Encounter Details Date Type Department Care Team Description 10/01/2020 Office Visit [facility] Jonh Garcia Ptosi s, left eyelid (Primary Dx); Clinic Peds Eye Left homonymous hemianopsia [address] [place] [address] [address] [place], [place] [phone] (Work) [phone] Social History Tobacco Use Types Packs/Day Years [...] with No / Unsure 10/01/2020 1:25 PM ORGAN PIPE FINISHER someone who was confirmed or suspected to [...] drain system. Dr. Garcia's membership in the [place] [employer] (ASOPRS) indicates he or she is not only aboard certified canvas goods fabricator who knows the anatomy and structure of the eyelids and orbit, but also has had extensive training in ophthalmic plastic reconstructive and cosmetic surgery. N PIPE FINISHER documented in this encounter Progress Notes Jonh Garcai MD - 10/01/2020 1:00 PM CST Chief [...] - Jonh Garcia MD 2:04 PM 10/01/2020 N PIPE FINISHER documented in this encounter Nursing Notes Natalie Davidson CO - 10/01/2020 1:00 PM CST Chief Complaint(s) and History of Present Illness(es) Droopy Left Upper Lid Laterality: left upper lid Comments H/o TBI. 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 Notes black line in vision (field cut). Prism gls have helped double vision. Dr. Mcqueen requests evaluation for CATIE ptosis. N PIPE FINISHER documented in this encounter Plan of Treatment Not on filedocumented as of this encounter Procedures Procedure Name Priority Date/Time Associated Diagnosis Comme nts VISUAL FIELD PTOSIS Routine 10/01/2020 2:04 PM Ptosis, l eft eyelid Results for this OU (BOTH EYES) ORGAN PIPE FINISHER Left homonymous procedure are in hemianopsia the results section. EXTERNAL PHOTOS OU Routine 10/01/2020 2:04 PM Ptosis, le ft eyelid Results for this (BOTH EYES) ORGAN PIPE FINISHER Left homonymous procedure ar e in hemianopsia the results section. OPHTHALMIC IMAGING - 10/01/2020 12:00 HIM SCAN AM ORGAN PIPE FINISHER documented in this encounter Results Hdez VF Ptosis OU (10/01/2020 2:04 PM ORGAN PIPE FINISHER) Jonh Velez MD - 10/01/2020 2:04 P M ORGAN PIPE FINISHER Performed by: Patricia . Patient cooperation: Reliable [...] Photos OU (both eyes) (10/01/2020 2:04 PM ORGAN PIPE FINISHER) Jonh Velez MD - 10/01/2020 2:04 P M ORGAN PIPE FINISHER Performed by: reji . Patient cooperation: Reliable . Right Eye Reliability of the test: Good . Left Eye Reliability of the test: Good . Notes Consistent with exam. Results documented under Exam and A&P. ?? Jonh Garcia MD OPHTHALMOLOGY OPHTHALMIC IMAGING - HIM SCAN (10/01/2020 12:00 AM ORGAN PIPE FINISHER) Specimen (Source) Anatomical Location Collection Method / Collectio n Time Received Time / Laterality Volume 10/01/2020 Narrative This result has an attachment that is no t available. Provider Scan PROCEDURES documented in this encounter Visit Diagnoses Diagnosis Ptosis, left eyelid - Primary Unspecified ptosis of eyelid Left homonymous hemianopsia Homonymous bilateral field defects in vi sual field documented in this encounter Care Teams Sql Server Consultant Relationship Specialty Start Date End Date Mar Alfaro PCP - General 05/31/17 [facility] [address] [place] [address] Jeremy Gibbs MD MD Ophthalmology 12/10/14 Jose Monahan MD MD Ophthalmology 12/10/14 Lise Mcqueen, Ophthalmology 05/31/[address] [facility] [address] [address] Lise Mcqueen, Assigned Surgical Provider [address] [address] documented as of this encounter
--- OUTSIDE RECORDS SUMMARY | 2022-06-18 09:31 | XMS_ITS | Encounter Summary ---
:1975 Author Organization [place] Address [address] [place] [address] Care Team Providers Name Role Phone Jeremy Gibbs MD Unavailable Jose Monahan MD Unavailable Lise Mcqueen MD Unavailable [phone] Mar Alfaro Primary Care Provider Chay [...] RECTUS TECH HC REPAIR LID PTOSIS,FASANELLA-SERVAT 909 [facility] SE left upper eyelid ptosis repair 5th [place] [address] Phone: Fax: Referral ID Status Reason Start Date Expiration Date Visits Requ ested Visits Authorized [id number] 1 1 Encounter Details Date Type Department Care Team Description 11/12/2020 Surgery [facility] Main Chay Arce left upper eyelid ptosis OR Pranay SOLO repair 909 [facility] SE 909 [facility] 5th Floor [place], [place] [address] [phone] Surgery Details Date/Time Status Location OR Service Patient Class Case Case Trauma Class Type Case? 11/12/20 1:55 Posted [facility] OR OR Ophthalmology Outpatient PM Panel 1 Procedure LRB Anes Op Region Wound Class Commen ts left upper eyelid ptosis repair Left MAC with Local Eye I-Clean Surgeon Surgeon Role Service Panel Chay Arce MD Primary Ophthalmology 1 Special Needs /10/13 lmPAC appointment with Vinny on 11/10/20Talked to aurelia kaminski: coordinator: patient trying to get covid testing done closer to [place]. Patient will reach out to Aurelia with updates on her covid screenin 11/07/20: Phoebe Salinas RN Patient will h ave her covid test done at 7 am at the [facility]. PT aware surgery will be last [...] you stopped using narcotic pain medications(such as [place], Percocet, Tylenol #3). Medications: ?? Restart all your regular home medications and eye drops today. If you take Plavix or Aspirin on aregular basis, wait for 3 days after your surgery before restarting these in order to decrease the risk of bleeding complications. ?? Avoid aspirin and aspirin-like medications (Motrin, Aleve, Ibuprofen, Debra- Livingston etc) for 5 days to reduce the [...] tablets of Vicodin, or 12 tablets of Montgomery, Percocet or Tylenol #3. If you take other crgl-pqi-wqqyfwo medications containing acetaminophen, you must take the amount of acetaminophen into account and reduce the number of prescribed pain pills accordingly. Contact information and follow-up: - Please email a few photos of your eye(s) or other operative site(s) to [email or web address] theday before your follow up visit. ?? Return to the Eye Clinic for a follow-up appointment with your physician as scheduled. If no appointment has been scheduled, call [phone] for an appointment with Dr. Arce within 1 to 2 weeks from your date of surgery. ?? For severe pain, bleeding, or loss of vision, call the Eye Clinic at [phone]. ?? After hours or on weekends and holidays, call [phone] and ask to speak with the acreage reporter customer relations advisor. [facility] [...] Your doctor is: Dr. Chay Arce, Ophthalmology: [phone] Or dial [phone] and ask for the resident customer relations advisor for: Ophthalmology For emergency care, call the: [place] [facility]: [phone] (TTY for hearing impaired: [phone]) documented in this encounter Medications at Time [...] capsule by 0 (FISH OIL + D3) 0526-5286 mouth daily MG-UNIT CAPSIndications: NOT TAKING FLUoxetine [...] (TOPROL-XL) 50 MG 24 hr daily tablet zekwutpp-sjycnprcn-cvhlzfa Administer 1 drop 5 mL 0 hasone [...] she had an emergent laparoscopic cholecystectomy at [facility] on 11/06/2020. She entered through [...] ??? Fish Oil-Cholecalciferol (FISH OIL + D3) 8295-1480 MG-UNIT CAPS Take 1 capsule by mouth [...] file Gets together: Not on file Attends pentecostal service: Not on file Active member of [...] Relation Age of Onset ??? Cardiovascular Father AL twice ??? Allergies Brother spring ??? Allergies [...] - Chay Batres MD on 11/12/2020 at [facility] under MAC with [...] discussed with Dr Rogers. Maliha Casillas APRN [facility] Preoperative Assessment Center [facility] documented in this encounter Miscellaneous [...] Post-procedure documented in this encounter Care Teams News Gathering Technician Relationship Specialty Start Date End Date Mar Alfaro PCP - General 05/31/17 [facility] [address] [place] [address] Jeremy Gibbs MD MD Ophthalmology 12/10/14 Jose Monahan MD MD Ophthalmology 12/10/14 Lise Mcqueen MD Ophthalmology 05/31/[address] [place] [address] Chay Arce MD Assigned Surgical Provider 10/12/[address] [place] [address] documented as of this encounter
--- OUTSIDE RECORDS SUMMARY | 2022-06-18 09:31 | XMS_ITS | Encounter Summary ---
:1975 Author Organization [place] Address [address] [place] [address]. [place] [address] Care Team Providers Name Role Phone Jeremy Gibbs MD Unavailable Jose Monahan MD Unavailable Lise Mcqueen MD Unavailable [phone] Mar Alfaro Primary Care Provider Encounter Details Date Type Department Care Team Description 07/21/2020 Telephone [facility] Durga Beltre, Eye [address] [facility] [address] [place] [facility] 3rd [place] [address] [place] [phone] Social History Tobacco Use Types Packs/Day Years [...] to patient about visitor restrictions. -Pham Knox PIT WORKER documented in this encounter Plan of Treatment Not on filedocumented as of this encounter Visit Diagnoses Not on filedocumented in this encounter Care Teams Maker Up Folding Relationship Specialty Start Date End Date Mar Alfaro PCP - General 05/31/17 [facility] [address] [place] [address] Jeremy Gibbs MD MD Ophthalmology 12/10/14 Jose Monhaan MD MD Ophthalmology 12/10/14 Lise Mcqueen MD MD Ophthalmology 05/31/[address] [place] [address] documented as of this encounter
--- OUTSIDE RECORDS SUMMARY | 2022-06-18 09:31 | XMS_ITS | Encounter Summary ---
:1975 Author Organization [place] Address [address] [place] [address]. [place] [address] Care Team Providers Name Role Phone Jeremy Gibbs MD Unavailable Jose Monahan MD Unavailable Lise Mcqueen MD Unavailable [phone] Mar Alfaro Primary Care Provider Lise Mcqueen MD Unavailable [phone] Jonh Garcia MD Unavailable Encounter Details Date Type Department Care Team Description 08/14/2020 Medical Correspondence [facility] Scan, LAB AND IMAGING Health Info Mgmt Non-Provider OUTPATIENT ORDER Srvcs FORM OUTSIDE [address] [place] [address] Social History Tobacco Use Types Packs/Day [...] on filedocumented in this encounter Care Teams Exhibit Cleaner Relationship Specialty Start Date End Date Mar Alfaro PCP - General 05/31/17 [facility] [address] [place] [address] Jeremy Gibbs MD MD Ophthalmology 12/10/14 Jose Monahan MD MD Ophthalmology 12/10/14 Lise Mcqueen MD Ophthalmology 05/31/[address] [place], [place] [address] [address] [address] Lise Mcqueen, Assigned Surgical Provider 10/11/[address] [place], [place] [address] [address] [address] Jonh Garcia MD Assigned Surgical Provider 10/12/20 909 [place] [address] documented as of this encounter
--- OUTSIDE RECORDS SUMMARY | 2022-06-18 09:31 | XMS_ITS | Encounter Summary ---
:1975 Author Organization [place] Address [address] [place] [address] Care Team Providers Name Role Phone Jermey Gibbs MD Unavailable Jose Monahan MD Unavailable Lise Mcqueen MD Unavailable [phone] Mar Alfaro Primary Care Provider Chay [...] RECTUS TECH HC REPAIR LID PTOSIS,FASANELLA-SERVAT 909 [facility] SE left upper eyelid ptosis repair 5th [place] [address] Phone: Fax: Referral ID Status Reason Start Date Expiration Date Visits Requ ested Visits Authorized [id number] 1 1 Encounter Details Date Type Department Care Team Description 11/12/2020 Hospital Encounter [facility] Jovany Arceos is, left eyelid; Main [place] MD Chay Ptosis, left eyelid [address] 909 [facility] 5th [place] [address] [phone] Social History Tobacco Use Types Packs/Day Years [...] you stopped using narcotic pain medications(such as Purmela, Percocet, Tylenol #3). Medications: ?? Restart all your regular home medications and eye drops today. If you take Plavix or Aspirin on aregular basis, wait for 3 days after your surgery before restarting these in order to decrease the risk of bleeding complications. ?? Avoid aspirin and aspirin-like medications (Motrin, Aleve, Ibuprofen, Debra- Gonzales etc) for 5 days to reduce the [...] tablets of Vicodin, or 12 tablets of Purmela, Percocet or Tylenol #3. If you take other dztf-mla-timoofy medications containing acetaminophen, you must take the amount of acetaminophen into account and reduce the number of prescribed pain pills accordingly. Contact information and follow-up: - Please email a few photos of your eye(s) or other operative site(s) to [email or web address] theday before your follow up visit. ?? Return to the Eye Clinic for a follow-up appointment with your physician as scheduled. If no appointment has been scheduled, call [phone] for an appointment with Dr. Arce within 1 to 2 weeks from your date of surgery. ?? For severe pain, bleeding, or loss of vision, call the Eye Clinic at [phone]. ?? After hours or on weekends and holidays, call [phone] and ask to speak with the safety deposit boxes custodian certified pediatric nurse practitioner. [facility] Home Care [...] Your doctor is: Dr. Chay Arce, Ophthalmology: [phone] Or dial [phone] and ask for the resident certified pediatric nurse practitioner for: Ophthalmology For emergency care, call the: [place] [facility]: [phone] (TTY for hearing impaired: [phone]) documented in this encounter Medications at Time [...] capsule by 0 (FISH OIL + D3) 7882-9105 mouth daily MG-UNIT CAPSIndications: NOT TAKING FLUoxetine [...] (TOPROL-XL) 50 MG 24 hr daily tablet mziezjdi-okykdpywq-urdsfgx Administer 1 drop 5 mL 0 hasone [...] changes Source Note - Maliha Casillas APRN LOCKER ATTENDANT - 11/10/2020 2:30 PM CDT Images from [...] she had an emergent laparoscopic cholecystectomy at [facility] on 11/06/2020. She entered through the ED [...] ??? Fish Oil-Cholecalciferol (FISH OIL + D3) 1754-8738 MG-UNIT CAPS Take 1 capsule by mouth [...] file Gets together: Not on file Attends jehovah's witness service: Not on file Active member of [...] Maliha Casillas APRN CNP Preoperative Assessment Center [facility] and Surgery Center documented in this encounter [...] Post-procedure documented in this encounter Care Teams Pharmacy Stock Clerk Relationship Specialty Start Date End Date Mar Alfaro PCP - General 05/31/17 [facility] [address] [place] [address] Jeremy Gibbs MD MD Ophthalmology 12/10/14 Jose Monahan MD MD Ophthalmology 12/10/14 Lise Mcqueen MD Ophthalmology 05/31/[address] [id number] Chay Arce MD Assigned Surgical Provider 10/12/[address] [place] [id number] documented as of this encounter
--- OUTSIDE RECORDS SUMMARY | 2022-06-18 09:31 | XMS_ITS | Encounter Summary ---
:1975 Author Organization [place] Address [address] [place] [address] Care Team Providers Name Role Phone Jeremy Gibbs MD Unavailable Jose Monahan MD Unavailable Lise Mcqueen MD Unavailable [phone] Mar Alfaro Primary Care Provider Jonh Garcia MD Unavailable Reason for Visit Reason Comments Patient/info Update Encounter Details Date Type Department Care Team Description 12/01/2020 Virtual Visit [facility] - Dick Borja MD (Primary Dx) [address]th [place] [address] Social History Tobacco Use [...] adnexa documented in this encounter Care Teams Clearing Tub Worker Relationship Specialty Start Date End Date Mar Alfaro PCP - General 05/31/17 [facility] [address] [place] [address] Jeremy Gibbs MD MD Ophthalmology 12/10/14 Jose Monahan MD MD Ophthalmology 12/10/14 Lise Mcqueen MD Ophthalmology 05/31/[address] [place], [place] [phone] Jonh Garcia MD Assigned Surgical Provider 10/12/20 909 [place], [place] [address] documented as of this encounter
--- OUTSIDE RECORDS SUMMARY | 2022-06-18 09:31 | XMS_ITS | Encounter Summary ---
:1975 Author Organization [place] Address [address] [place] [address]. [place] [address] Care Team Providers Name Role Phone Jeremy Gibbs MD Unavailable Jose Monahan MD Unavailable Lise Mcqueen MD Unavailable [phone] Mar Alfaro Primary Care Provider Jonh Garcia MD Unavailable Encounter Details Date Type Department Care Team Description 11/06/2020 Medical Correspondence [facility] Scan, LAB AND IMAGING Health Info Mgmt Non-Provider OUTPATIENT ORDER Srvcs FORM [address] [place] [address] [facility] [phone] Social History Tobacco Use Types Packs/Day Years [...] on filedocumented in this encounter Care Teams Supervisor Reinforced Steel Placing Relationship Specialty Start Date End Date Mar Alfaro PCP - General 05/31/17 [facility] 1400 [place] [address] Jeremy Gibbs MD MD Ophthalmology 12/10/14 Jose Monahan MD MD Ophthalmology 12/10/14 Lise Mcqueen MD Ophthalmology 05/31/[address] [address] Jonh Garcia MD Assigned Surgical Provider 10/12/20 909 [place] [address] documented as of this encounter
--- OUTSIDE RECORDS SUMMARY | 2022-06-18 09:31 | XMS_ITS | Encounter Summary ---
:1975 Author Organization [place] Address [address] [place] [address]. [place] [address] Care Team Providers Name Role Phone Jeremy Gibbs MD Unavailable Jose Monahan MD Unavailable Lise Mcqueen MD Unavailable [phone] Mar Alfaro Primary Care Provider Reason for Visit Reason Onset Date Comments Appointment 11/26/2019 Encounter Details Date Type Department Care Team Description 11/26/2019 Telephone [facility] Durga Beltre, Appointment Eye [address] [place] [address] [place] [facility] 3rd [place] [address] [place] [phone] Social History Tobacco Use Types Packs/Day Years [...] on filedocumented in this encounter Care Teams Family Assessment Worker Relationship Specialty Start Date End Date Mar Alfaro PCP - General 05/31/17 [facility] [address] [place] [address] Jeremy Gibbs MD MD Ophthalmology 12/10/14 Jose Monahan MD MD Ophthalmology 12/10/14 Lise Mcqueen MD MD Ophthalmology 05/31/[address] [place] [address] documented as of this encounter
--- OUTSIDE RECORDS SUMMARY | 2022-06-18 09:32 | XMS_ITS | Encounter Summary ---
:1975 Author Organization [place] Address [facility] [place] [address] Care Team Providers Name Role Phone Sahra Vaughanmichael Arita Primary Care Provider Montana Meyer MD Unavailable Jeremy Gibbs MD Unavailable Jose Monahan MD Unavailable Reason for Visit Reason Onset Date Comments Glasses Problem 05/05/2017 Encounter Details Date Type Department Care Team Description 05/05/2017 Telephone [facility] Moiz Mcqueen ll Glasses Problem - MD Cezar Gomesteen [address] [place] [address] [place], [place] 9th [place] [facility] 9A [address] [place] [address] [phone] Social History Tobacco Use Types Packs/Day Years [...] ----- Regarding: Glasses Script Contact: Codi from [employer] is requesting a call back to verify pt's glasses script from Dr. Mcqueen. Thank you! KI Please DO NOT send this message and/or reply back to sender. Call Center Representatives DO NOT respond to messages. documented in this encounter Plan of Treatment Not on filedocumented as of this encounter Visit Diagnoses Not on filedocumented in this encounter Care Teams Systems Security Analyst Relationship Specialty Start Date End Date Teresa Vaughan PCP - General Family Practice 05/29/13 05/30/17 [facility] 1400 [place] [address] Montana Meyer MD MD Ophthalmology 12/10/14 05/30/17 [facility] [address] [place] [address] Jeremy Gibbs MD MD Ophthalmology 12/10/14 Jose Monahan MD MD Ophthalmology 12/10/14 documented as of this encounter
--- OUTSIDE RECORDS SUMMARY | 2022-06-18 09:32 | XMS_ITS | Encounter Summary ---
:1975 Author Organization [place] Address [address] [place] [address]. [place] [address] Care Team Providers Name Role Phone Teresa Vaughan Primary Care Provider [place] Meyer MD Unavailable Jeremy Gibbs MD Unavailable Jose Monahan MD Unavailable Encounter Details Date Type Department Care Team Description 05/30/2017 Orders Only [facility] Lise Mcqueen Diplopia (Primary Dx); Clinic Peds Eye MD Mary Lou Alternating esotropia; [address] [place] [address] Hypertropia of right eye [facility] 3RD [place] 3rd [place] [phone] Social History Tobacco Use Types Packs/Day Years [...] eye documented in this encounter Care Teams Maintenance Man Relationship Specialty Start Date End Date Teresa Vaughan PCP - General Family Practice 05/29/13 05/30/[address] [address] Montana Meyer MD MD Ophthalmology 12/10/14 05/30/17 [facility] [address] [place] [address] Jeremy Gibbs MD MD Ophthalmology 12/10/14 Jose Monahan MD MD Ophthalmology 12/10/14 documented as of this encounter
--- OUTSIDE RECORDS SUMMARY | 2022-06-18 09:32 | XMS_ITS | Encounter Summary ---
:1975 Author Organization [place] Address [address] [place] [address]. [place] [address] Care Team Providers Name Role Phone Teresa Vaughan Lyla Primary Care Provider Reason for Visit Auth/Cert - Closed Specialty Diagnoses / Procedures Referred By Contact Refer red To Contact Surgery Diagnoses Strabismus Ur Periop Procedures RECESSION RESECTION (REPAIR STRABISMUS) BILATERAL [address]50 [place] [address] Phone: Fax: Referral ID Status Reason Start Date Expiration Date Visits Requ ested Visits Authorized [id number] Closed 1 1 Encounter Details Date Type Department Care Team Description 11/26/2014 Surgery [facility] Montana Meyer, Brittany trabismus Repair Right PeriOp Services MD Eye [address] [place] [address] [address] [facility] [phone] [place] [address] Surgery Details Date/Time Status Location OR Service [...] and oinment. Return for follow-up with Dr. Myeer as scheduled. If you do not have an appointment already, pleasecall Binh Patrick at or our frontload driver at and arrange to follow-up. Please call [phone] For postop eye concerns including discharge, eye [...] To contact a doctor, call or: ??? [phone] and ask for the Resident Data Entry Manager for: (answered 24 hours a day) ??? Emergency Department: [place] [facility]: [phone] [facility] [facility]: [phone] [facility] Emergency Department: [phone] Rev. 05/2014 Dr John Meyer, Dr. Lise [...] resolve slowly over 2- 4 weeks. ??? [place] tinged tears ??? Swollen, painful or itchy [...] daily as needed for anxiety (or sleep) nebhobzg-npsjfsbgt-otvtuuy Place 1 drop into 1 mL 0 12/01/2014 hasone (MAXITROL) the right eye 4 3.5-04248-9.1 times daily for 5 SUSPIndications: days Postoperative [...] recession 4.0 mm SURGEON: Montana Meyer MD ASSISTANT TODDLER TEACHER: Chanel Grant MD IMPLANTS: None COMPLICATIONS: None [...] Grant MD - 11/26/2014 11:43 AM CDT [facility] Brief Operative Note Pre-operative diagnosis: Strabismus [...] RN) 0.3-0.5 mg, Intravenous, EVERY 10 MIN IA N, Starting Tue11/26/14 at 1210, Until Tue11/26/14 [...] Intra-procedure documented in this encounter Care Teams Cd Storage And Materials Make Up Helper Relationship Specialty Start Date End Date Teresa Vaughan PCP - General Family Practice 05/29/13 05/30/17 [facility] [address] [place] [address] documented as of this encounter
--- OUTSIDE RECORDS SUMMARY | 2022-06-18 09:32 | XMS_ITS | Encounter Summary ---
:1975 Author Organization [place] Address [address] [place] [address]. [place] [address] Care Team Providers Name Role Phone Teresa Vaughan Primary Care Provider Montana Meyer MD Unavailable Jeremy Gibbs MD Unavailable Jose Monahan MD Unavailable Reason for Visit Reason Comments Diplopia Follow Up h/o TBI, patient notes const ant diplopia, patient feels nausous often has difficulty riding in a car or watching TV, wears glasses with prism multimedia author Encounter Details Date Type Department Care Team Description 02/13/2015 Office Visit [facility] Eye Adult Double Montana Meyer, Alt ernating esotropia (Primary Dx); Vision Sixth nerve palsy of both eyes; [address] [facility] Subjective visual disturbance; 3rd Floor, [address] [place] [address] Left [place] [address] [phone] Social History Tobacco Use Types Packs/Day Years [...] watching TV, wears glasses with prism multimedia author Review of systems for the eyes was [...] field documented in this encounter Care Teams Statement Clerks Manager Relationship Specialty Start Date End Date Teresa Vaughan PCP - General Family Practice 05/29/13 05/30/17 [facility] [address] [place] [address] Montana Meyer MD MD Ophthalmology 12/10/14 05/30/17 [facility] [address] [place] [address] Jeremy Gibbs MD MD Ophthalmology 12/10/14 Jose Monahan MD MD Ophthalmology 12/10/14 documented as of this encounter
--- OUTSIDE RECORDS SUMMARY | 2022-06-18 09:32 | XMS_ITS | Encounter Summary ---
:1975 Author Organization [place] Address [address] [place] [address] Care Team Providers Name Role Phone Rochellesheridan Teresa D Primary Care Provider Montana Meyer MD Unavailable Jeremy Gibbs MD Unavailable Jose Monahan MD Unavailable Reason for Visit Reason Onset Date Comments Appointment 03/09/2016 Encounter Details Date Type Department Care Team Description 03/09/2016 Telephone [facility] Ophthalmolo Lise Mahmood, Appointment 909 [facility] 4th Floor [address] [place] [phone] [place] [address] (Wo rk) Social History Tobacco [...] on filedocumented in this encounter Care Teams Casting House Worker Relationship Specialty Start Date End Date Teresa Vaughan PCP - General Family Practice 05/29/13 05/30/17 [facility] 1400 [place] [address] Montana Meyer MD MD Ophthalmology 12/10/14 05/30/17 [facility] [address] [place] [address] Jeremy Gibbs MD MD Ophthalmology 12/10/14 Jose Monahan MD MD Ophthalmology 12/10/14 documented as of this encounter
--- OUTSIDE RECORDS SUMMARY | 2022-06-18 09:32 | XMS_ITS | Encounter Summary ---
:1975 Author Organization [place] Address Formerly [facility], [id number]–[address]30 [facility] [place] [address] Care Team Providers Name Role Phone Jeremy Gibbs MD Unavailable Jose Monahan MD Unavailable Lise Mcqueen MD Unavailable [phone] Mar Alfaro Primary Care Provider Encounter Details Date Type Department Care Team Description 06/16/2017 Telephone [facility] Geri Rodriguez [place] Peds Eye [address] [place] [address] [place] [address] 00 [place], [place] [phone] [place] [address] [place] [address] [phone] Social History Tobacco Use Types Packs/Day Years [...] after that. I will try back later. ITURE ARRANGER documented in this encounter Plan of Treatment Not on filedocumented as of this encounter Visit Diagnoses Not on filedocumented in this encounter Care Teams Intermodal Truck Driver Relationship Specialty Start Date End Date Mar Alfaro PCP - General 05/31/17 [facility] [address] [place] [address] Jeremy Gibbs MD MD Ophthalmology 12/10/14 Jose Monahan MD MD Ophthalmology 12/10/14 Lise Mcqueen MD MD Ophthalmology 05/31/17 [address] [place] [address] documented as of this encounter
--- OUTSIDE RECORDS SUMMARY | 2022-06-18 09:32 | XMS_ITS | Encounter Summary ---
:1975 Author Organization [place] Address [facility]0 [facility] [place] [address] Care Team Providers Name Role Phone Jeremy Gibbs MD Unavailable Jose Monahan MD Unavailable Lise Mcqueen MD Unavailable Mar Alfaro Primary Care Provider Encounter Details Date Type Department Care Team Description 06/17/2017 Documentation Only [facility] Geri Rodriguez, Clinic Peds Eye [place] [address] [place] [address] [place] [facility] [address] [place] [address] [phone] Social History Tobacco Use Types Packs/Day Years [...] don't want her to have daily headaches. TRICAL TECHNICIAN documented in this encounter Plan of Treatment Not on filedocumented as of this encounter Visit Diagnoses Not on filedocumented in this encounter Care Teams Sr. Strategic Sourcing Manager Relationship Specialty Start Date End Date Mar Alfaro PCP - General 05/31/17 [facility] [address] [place] [address] Jeremy Gibbs MD MD Ophthalmology 12/10/14 Jose Monahan MD MD Ophthalmology 12/10/14 Lise Mcqueen MD MD Ophthalmology 05/31/[address] [place] [address] documented as of this encounter
--- OUTSIDE RECORDS SUMMARY | 2022-06-18 09:32 | XMS_ITS | Encounter Summary ---
:1975 Author Organization [place] Address [facility] [place] [address] Care Team Providers Name Role Phone Teresa Vaughan Lyla Primary Care Provider Montana Meyer MD Unavailable Jeremy Gibbs MD Unavailable Jose Monahan MD Unavailable Encounter Details Date Type Department Care Team Description 01/11/2016 Telephone [facility] Pippa Kimbrough RN [address] [place] [address] Social History Tobacco Use Types Packs/Day [...] informed that she will need to call [facility] in the morning to cancel since their [...] on filedocumented in this encounter Care Teams Pet Care Technician Relationship Specialty Start Date End Date Teresa Vaughan PCP - General Family Practice 05/29/13 05/30/17 [facility] [address] [place] [address] Montana Meyer MD MD Ophthalmology 12/10/14 05/30/17 [facility] [address] [place] [address] Jeremy Gibbs MD MD Ophthalmology 12/10/14 Jose Monahan MD MD Ophthalmology 12/10/14 documented as of this encounter
--- OUTSIDE RECORDS SUMMARY | 2022-06-18 09:32 | XMS_ITS | Encounter Summary ---
:1975 Author Organization [place] Address [address] [facility] [place] [address] Care Team Providers Name Role Phone Teresa Vaughan Primary Care Provider Montana Meyer MD Unavailable Jeremy Gibbs MD Unavailable Jose Monahan MD Unavailable Reason for Referral Occupational Therapy - Closed Specialty Diagnoses / Procedures Referred By Contact Refer red To Contact Diagnoses Left homonymous hemianopsia Diplopia Colton Pastrana MD [facility] [address] [place] [address] Referral ID Status Reason Start Date Expiration Date Visits Requ ested Visits Authorized [id number] Closed 10/07/2015 10/06/2016 1 1 ERY DELIVERER Reason for Visit Reason Comments Sixth Nerve [...] Department Care Team Description 09/23/2015 Office Visit [facility] Lise Mcqueen Alternat ing esotropia (Primary Dx); Clinic Peds Eye MD Mary Lou Sixth nerve palsy of both eyes; [address] [place] [address] Left homonymous hemianopsia; [place] [address] [place] Diplopia [address] [place] [phone] Social History Tobacco Use Types Packs/Day Years [...] to the patient at checkout. Data Unavailable ERY DELIVERER documented in this encounter Nursing Notes Kerry [...] Do you have eye pain now?: No ERY DELIVERER documented in this encounter Miscellaneous Notes Addendum Note - Colton Pastrana MD - 10/07/2015 1:30 PM GROCERY DELIVERER Addended by: COLTON PASTRANA on: 10/07/2015 01:30 PM Modules accepted: Orders ERY DELIVERER documented in this encounter Plan of Treatment [...] Diplopia documented in this encounter Care Teams Public Service Director Relationship Specialty Start Date End Date Teresa Vaughan PCP - General Family Practice 05/29/13 05/30/17 [facility] [address] [place] [address] Montana Meyer MD MD Ophthalmology 12/10/14 05/30/17 [facility] [address] [place] [address] Jeremy Gibbs MD MD Ophthalmology 12/10/14 Jose Monahan MD MD Ophthalmology 12/10/14 documented as of this encounter
--- OUTSIDE RECORDS SUMMARY | 2022-06-18 09:32 | XMS_ITS | Encounter Summary ---
:1975 Author Organization [place] Address [address] [place] [address] Care Team Providers Name Role Phone Jeremy Gibbs MD Unavailable Jose Monahan MD Unavailable Lise Mcqueen MD Unavailable [phone] Mar Alfaro Primary Care Provider Encounter [...] on filedocumented in this encounter Care Teams Correctional Nurse Relationship Specialty Start Date End Date Mar Alfaro PCP - General 05/31/17 [facility] [address] [place] [address] Jeremy Gibbs MD MD Ophthalmology 12/10/14 Jose Monahan MD MD Ophthalmology 12/10/14 Lise Mcqueen MD MD Ophthalmology 05/31/17 [address] [facility] [address] [place] [address] documented as of this encounter
--- OUTSIDE RECORDS SUMMARY | 2022-06-18 09:32 | XMS_ITS | Encounter Summary ---
:1975 Author Organization [place] Address [facility]0 [facility] [address] Care Team Providers Name Role Phone Teresa Vaughan Lyla Primary Care Provider Montana Meyer MD Unavailable Jeremy Gibbs MD Unavailable Jose Monahan MD Unavailable Reason for Visit Reason Onset Date Comments Glasses Problem 05/04/2017 Encounter Details Date Type Department Care Team Description 05/04/2017 Telephone [facility] Moiz Mcqueen Glasses Problem - MD [facility] [address] [place] [address] [place], [place] [facility] 9A [address] [place] [phone] Social History Tobacco Use Types Packs/Day Years [...] distance RX faxed to [facility] in [facility]. The fax # at [facility] in [facility] is [phone]. The RX needed is for distance. NOT [...] on filedocumented in this encounter Care Teams Chimney Supervisor Brick Relationship Specialty Start Date End Date Teresa Vaughan PCP - General Family Practice 05/29/13 05/30/17 [facility] [address] [place] [address] Montana Meyer MD MD Ophthalmology 12/10/14 05/30/17 [facility] [address] [place] [address] Jeremy Gibbs MD MD Ophthalmology 12/10/14 Jose Monahan MD MD Ophthalmology 12/10/14 documented as of this encounter
--- OUTSIDE RECORDS SUMMARY | 2022-06-18 09:32 | XMS_ITS | Encounter Summary ---
:1975 Author Organization [place] Address [address] [facility] [place] [address] Care Team Providers Name Role Phone Jeremy Gibbs MD Unavailable Jose Monahan MD Unavailable Lise Mcqueen MD Unavailable [phone] Mar Alfaro Primary Care Provider Reason for Visit Reason Comments Post Op (Ophthalmology) Both Eyes still has diplopia, but better than last visit with ground in prisms at distance . Difficult to read with or without glasses. Encounter Details Date Type Department Care Team Description 04/20/2018 Office Visit [facility] Lies Mcqueen rve palsy of both eyes (Primary Dx); Clinic Peds Eye MD Mary Lou Diplopia; [address] [place] [address] Left homonymous hemianopsia; [facility] [place] [address] [place] Alternating esotropia; [address]rd [address], [place] Hypertropia of right eye [place], [place] [address] Social History Tobacco Use Types Packs/Day [...] eye documented in this encounter Care Teams Mailroom Clerk Relationship Specialty Start Date End Date Mar Alfaro PCP - General 05/31/17 [facility] [address] [place] [address] Jeremy Gibbs MD MD Ophthalmology 12/10/14 Jose Monahan MD MD Ophthalmology 12/10/14 Lise Mcqueen MD MD Ophthalmology 05/31/17 [address] [facility] [address] [address] documented as of this encounter
--- OUTSIDE RECORDS SUMMARY | 2022-06-18 09:32 | XMS_ITS | Encounter Summary ---
:1975 Author Organization [place] Address [address] [place] [address]. [place] [address] Care Team Providers Name Role Phone Jeremy Gibbs MD Unavailable Jose Monahan MD Unavailable Lise Mcqueen MD Unavailable [phone] Mar Alfaro Primary Care Provider Reason for Visit Reason Comments Esotropia Follow Up RSE. New glasses giving head aches, wearing the ones giving by Dr Meyer which improves diplop ia. Vision is stable. Auth/Cert Specialty Diagnoses / Procedures Referred By Contact Refer red To Contact Surgery Diagnoses Strabismus, Diplopia, Alternating Esotropia, Hypertropia Ur Periop Procedures RECESSION RESECTION (REPAIR STRABISMUS) BILATERAL 2450 [place] [address] Phone: Fax: Referral ID Status Reason Start Date Expiration Date Visits Requ ested Visits Authorized [id number] 1 1 Encounter Details Date Type Department Care Team Description 08/10/2017 Office Visit [facility] Lise Mcqueen MD [address] [place] [address] Paralytic strabismus, sixth or abducens nerve palsy, bilateral (Primary Dx); Clinic Peds Eye Orthoptics, Ump Eye Hypertropia of right eye; [address] [place] 3 00 Diplopia; [facility] Left ho monymous hemianopsia [address]rd [place] [address] Social History Tobacco Use Types [...] a few weeks and prescribe new glasses STITCHER documented in this encounter Nursing Notes Piedad Quintanilla CO - 08/10/2017 8:45 AM CST Chief Complaint Patient presents with ??? Esotropia Follow Up RSE. New glasses giving headaches, wearing the ones giving by Dr Meyer which improves diplopia. Vision is stable. HPI Symptoms: Do you have eye pain now?: No STITCHER documented in this encounter Plan of Treatment Not on filedocumented as of this encounter Procedures Procedure Name Priority Date/Time Associated Diagnosis Comme nts SENSORIMOTOR Routine 08/10/2017 9:33 AM Paralytic strabismus, Results for this HAND STITCHER sixth or abducens procedure are in the nerve palsy, results section . bilateral Hypertropia of right eye Diplopia documented in this encounter Results Sensorimotor (08/10/2017 9:33 AM HAND STITCHER) Narrative Piedad Quintanilla CO - 08/10/2017 9:33 AM HAND STITCHER Performed by: THANH Jacob Patient cooperation: Reliable [...] field documented in this encounter Care Teams Accounts Payable Manager Relationship Specialty Start Date End Date Mar Alfaro PCP - General 05/31/17 [facility] [address] [place] [address] Jeremy Gibbs MD MD Ophthalmology 12/10/14 Jose Monahan MD MD Ophthalmology 12/10/14 Lise Mcqueen MD MD Ophthalmology 05/31/[address] [place] [address] documented as of this encounter
--- OUTSIDE RECORDS SUMMARY | 2022-06-18 09:32 | XMS_ITS | Encounter Summary ---
:1975 Author Organization [place] Address [address] [place] [address]. [place] [address] Care Team Providers Name Role Phone RochellelauroTeresa martinez Primary Care Provider Montana Meyer MD Unavailable Jeremy Gibbs MD Unavailable Jose Monahan MD Unavailable Reason for Visit Reason Comments Diplopia Follow Up Encounter Details Date Type Department Care Team Description 06/30/2016 Office Visit [facility] Eye Antione Andre Diplopia (Primary Dx) Clinic [facility] MD Buddy [address] Clin 9A [phone] [place], [place] (Work) [address] [phone] Social History Tobacco Use Types Packs/Day Years [...] 6 palsy from traumatic brain injury - Director Of Database Marketing attempted to fit patient with Peli today [...] prisms or suppresses Follow-up with Dr. Gibbs OR APPLICATION SECURITY CONSULTANT documented in this encounter Plan of Treatment Not on filedocumented as of this encounter Procedures Procedure Name Priority Date/Time Associated Diagnosis Comme nts SENSORIMOTOR Routine 07/05/2016 3:58 PM Diplopia Results f or this SENIOR APPLICATION SECURITY CONSULTANT procedure are i n the results section . documented in this encounter Results Sensorimotor (07/05/2016 3:58 PM SENIOR APPLICATION SECURITY CONSULTANT) Narrative Antione Andre MD - 016 3:58 PM SENIOR APPLICATION SECURITY CONSULTANT Performed by: giovanny marcus ?? . Patient [...] Primary documented in this encounter Care Teams Auger Press Operator Relationship Specialty Start Date End Date Teresa Vaughan PCP - General Family Practice 05/29/13 05/30/17 [facility] [address] [place] [address] Montana Meyer MD MD Ophthalmology 12/10/14 05/30/17 [facility] [address] [place] [address] Jeremy Gibbs MD MD Ophthalmology 12/10/14 Jose Monahan MD MD Ophthalmology 12/10/14 documented as of this encounter
--- OUTSIDE RECORDS SUMMARY | 2022-06-18 09:32 | XMS_ITS | Encounter Summary ---
:1975 Author Organization [place] Address [address] [place] [address]. [place] [address] Care Team Providers Name Role Phone Jeremy Gibbs MD Unavailable Jose Monahan MD Unavailable Lise Mcqueen MD Unavailable [phone] Mar Alfaro Primary Care Provider Reason for Visit Auth/Cert Specialty Diagnoses / Procedures Referred By Contact Refer red To Contact Surgery Diagnoses Strabismus, Diplopia, Alternating Esotropia, Hypertropia Ur Periop Procedures RECESSION RESECTION (REPAIR STRABISMUS) BILATERAL 2450 [place] [address] Phone: Fax: Referral ID Status Reason Start Date Expiration Date Visits Requ ested Visits Authorized [id number] 1 1 Encounter Details Date Type Department Care Team Description 08/10/2017 Hospital Encounter UR PACU [place], Postoperative eye [address] [place] [address] [facility] (Primary Dx) [place], [place] [address] [address] S [facility] [phone] [place], [place] [address] Social History Tobacco Use Types Packs/Day Years [...] Comments Blood Pressure 109/65 08/10/2017 5:00 PM SAFE DEPOSIT BOX RENTAL CLERK Pulse - - Temperature 36.8 ??C (98.2 ??F) 08/10/2017 5:00 PM SAFE DEPOSIT BOX RENTAL CLERK Respiratory Rate 16 08/10/2017 4:00 PM SAFE DEPOSIT BOX RENTAL CLERK Oxygen Saturation 96% 08/10/2017 5:21 PM SAFE DEPOSIT BOX RENTAL CLERK Inhaled Oxygen Concentration - - Weight 85.1 kg (187 lb 9.8 oz) 08/10/2017 10:05 AM SAFE DEPOSIT BOX RENTAL CLERK Height 157.5 cm (5' 2) 08/10/2017 10:05 AM SAFE DEPOSIT BOX RENTAL CLERK Body Mass Index 34.31 08/10/2017 10:05 AM SAFE DEPOSIT BOX RENTAL CLERK documented in this encounter Discharge Instructions Discharge [...] Pranay: Binh Patrick at or our front counter attendant at ?? [place]: [phone] [place] [facility] Adult Discharge Orders & Instructions [...] resolve slowly over 2- 4 weeks. ??? [place] tinged tears ??? Swollen, painful or itchy [...] as discussed with Dr. Mcqueen. Rev. 10/2013 DEPOSIT BOX RENTAL CLERK documented in this encounter Medications at Time of Discharge Medication Sig Dispensed Refills Start Date End Date BuPROPion HCl (WELLBUTRIN Take 300 mg by mouth 0 XL PO)Indications: NOT TAKING CLONAZEPAM PO Take 0.5 mg by mouth 0 2 times daily as needed for anxiety (or sleep) Fish Oil-Cholecalciferol Take 1 capsule by 0 (FISH OIL + D3) 6377-1719 mouth daily MG-UNIT CAPSIndications: NOT TAKING FLUoxetine [...] PM CST Report to Nadiya Powell RN DEPOSIT BOX RENTAL CLERK Roseline Mcqueen RN - 08/09/2017 1:56 PM CST Called pt's cell phone (also home #) which goes straight to . Left message with surgery time change and new arrival and NPO times. DEPOSIT BOX RENTAL CLERK documented in this encounter Miscellaneous Notes Op [...] of 4.0 mm. SURGEON: Lise Mcqueen MD SAWYER HELPER: Jeremy Michel MD ESTIMATED BLOOD LOSS: 1 [...] muscle was carefully hooked using small and Ronald hooks. This was in a temporally transposed [...] MD MT: tamiko Name: KEY PERES Account: [id number] : 1975 Procedure Date: 08/10/2017 Document: [id number] DEPOSIT BOX RENTAL CLERK Brief Op Note - Jeremy Michel MD - 08/10/2017 1:40 PM CST [facility] Brief Operative Note Pre-operative diagnosis: Strabismus, Diplopia, Alternating Esotropia, Hypertropia Post-operative diagnosis Same Procedure: Procedure(s): Left Strabismus Repair - Wound Class: I-Clean Surgeon: Dr. Lise Mcqueen Assistants(s): Dr. Jeremy Michel Estimated blood loss: Minimal Specimens: None Findings: As expected Jeremy Michel MD Ophthalmology, PGY-3 DEPOSIT BOX RENTAL CLERK documented in this encounter Plan of Treatment Not on filedocumented as of this encounter Procedures Procedure Name Priority Date/Time Associated Diagnosis Comme nts SIMPLE RECESSION OR 08/10/2017 11:27 AM Strabismus, Di plopia, RESECTION, MUSCLE, SAFE DEPOSIT BOX RENTAL CLERK Alternating Esotropia, EXTRAOCULAR, BILATERAL, Hypertropia FOR STRABISMUS CORRECTION Special Needs CARLOTTA BORRERO CALLPt request s Post op RX for nausea from Dr. Mcqueen HCG QUALITATIVE URINE STAT 08/10/2017 10:25 AM SAFE DEPOSIT BOX RENTAL CLERK Results for this procedure are in the resu lts section. GLUCOSE BY METER Routine 08/10/2017 10:12 AM SAFE DEPOSIT BOX RENTAL CLERK Results for this procedure are in the resu lts section. documented in this encounter Results HCG qualitative urine (08/10/2017 10:25 AM SAFE DEPOSIT BOX RENTAL CLERK) Analysis Performed At Patho logist Time Signature HCG Qual Urine Negative NEG^Negati 08/10/2017 [facility] 10:50 AM SAFE DEPOSIT BOX RENTAL CLERK [facility] Comment: This test is for screening purposes. ??R esults should be interpreted along with the clinical picture. ??Confirmation te sting is available if warranted by ordering [id number], HCG Quantitative Pregna ncy. Specimen Anatomical Collection Method Collection Time Receive d Time (Source) Location / / Volume Laterality Urine specimen URINE SPECIMEN 08/10/2017 10:25 018 (specimen) OBTAINED BY CLEAN AM SAFE DEPOSIT BOX RENTAL CLERK 10:[address] CATCH PROCEDURE / Unknown Dontae Lazo MD LAB - URINE ORDERABLES Performing Organization Address City/State/ZIP Code Phon e Number [facility] [address] [place] [address] [facility] (ABNORMAL) Glucose by meter (08/10/2017 10:12 AM SAFE DEPOSIT BOX RENTAL CLERK) P athologist Signature Glucose 106 (H) 70 - 99 08/10/2017 POINT OF CARE mg/dL 10:15 AM SAFE DEPOSIT BOX RENTAL CLERK TEST, GLUCOSE Specimen Anatomical Collection Method Collection Time Receive d Time (Source) Location / / Volume Laterality 08/10/2017 10:12 08/10/2017 AM SAFE DEPOSIT BOX RENTAL CLERK 10:15 AM SAFE DEPOSIT BOX RENTAL CLERK Lise Mcqueen MD LAB - BEAKER POCT [...] acetaminophen (TYLENOL) tablet Given 08/10/2017 10:51 AM SAFE DEPOSIT BOX RENTAL CLERK 1,0 00 mg 1,000 mg 1,000 mg, Oral, ONCE, On Tue08/10/17 at 1015, For 1 dose, Maximum acetaminophen dose from all sources = 75 mg/kg/day not to exceed 4 gram, Pre-procedure BSS ophthalmic solution Given 08/10/2017 12:13 PM 1 applicator Operativ e PRN, Starting on Tue SAFE DEPOSIT BOX RENTAL CLERK Site /Surgical Site 08/10/17 at 1213, Intra-procedure dexamethasone (DECADRON) injection 6 mg 6 mg, Intravenous, EVERY 10 MIN PRN, favio sea, Administer over 1 Minutes, Starting on Tue08/10/17 at 1342, For 1 dose, For ordered doses up t o 20 mg, give IV Push undiluted over 1 minute., PACU/Phase II HYDROmorphone (PF) (DILAUDID) injection 0.2 Given 08/10/2017 4:20 PM SAFE DEPOSIT BOX RENTAL CLERK 0.2 mg mg 0.2 mg, Intravenous, EVERY [...] administer as Given 08/10/2017 3 :26 PM SAFE DEPOSIT BOX RENTAL CLERK 1 tablet ordered by surgeon for take home use CONTINUOUS PRN, Starting on Tue08/10/17 at 1407, Until Tue08/10/17 at 1934, May administer oral pain medications as ordered by surgeon for take home use. Discontinue IV pain medication prior to administration of oral pain medication., PACU/Phase II oxymetazoline (AFRIN) 0.05 Given 08/10/2017 12:13 PM 1 spray Operative Site/Surgical % spray SAFE DEPOSIT BOX RENTAL CLERK Site PRN, Starting on Tue08/10/17 at 1213, Intra-procedure scopolamine (TRANSDERM) 72 Given 08/10/2017 10:52 AM SAFE DEPOSIT BOX RENTAL CLERK 1 patch Behind Right Ear hr patch 1 patch 1 patch, Transdermal, ONCE, On Tue08/10/17 at 1015, For 1 dose, Each 1.5 mg patch delivers 1 mg of scopolamine., Pre-procedure documented in this encounter Active and Recently Administered Medications Times are shown in SAFE DEPOSIT BOX RENTAL CLERK. Scheduled Medication Order 08/08/2017 08/09/2017 08/10/2017 acetaminophen [...] II documented in this encounter Care Teams Vegetable Vendor Relationship Specialty Start Date End Date Mar Alfaro PCP - General 05/31/17 [facility] [address] [place] [address] Jeremy Gibbs MD MD Ophthalmology 12/10/14 Jose Monahan MD MD Ophthalmology 12/10/14 Lise Mcqueen MD MD Ophthalmology 05/31/[address] [place] [address] documented as of this encounter
--- OUTSIDE RECORDS SUMMARY | 2022-06-18 09:32 | XMS_ITS | Encounter Summary ---
:1975 Author Organization [place] Address [facility] [place] [address] Care Team Providers Name Role Phone Teresa Vaughan Primary Care Provider Montana Meyer MD Unavailable Jeremy Gibbs MD Unavailable Jose Monahan MD Unavailable Lise Mcqueen MD Unavailable [phone] Mar Alfaro Primary Care Provider Reason for Visit Reason Onset Date Comments Schedule Surgery 05/23/2017 Encounter Details Date Type Department Care Team Description 05/23/2017 Telephone [facility] Lise Mcqueen [facility] Surgery Peds Eye MD Mary Lou [address] [place] [address] [phone] [place], [place] [phone] (Wo rk) Social History Tobacco Use Types [...] on filedocumented in this encounter Care Teams Reroller Hand Relationship Specialty Start Date End Date Teresa Vaughan PCP - General Family Practice 05/29/13 05/30/[address] [address] Mar Alfaro PCP - General 05/31/17 [facility] [address] [place] [address] Montana Meyer MD MD Ophthalmology 12/10/14 05/30/17 [facility] [address] [place] [address] Jeremy Gibbs MD MD Ophthalmology 12/10/14 Jose Monahan MD MD Ophthalmology 12/10/14 Lise Mcqueen MD MD Ophthalmology 05/31/17 [address] [facility] [address] [place] [address] documented as of this encounter
--- OUTSIDE RECORDS SUMMARY | 2022-06-18 09:32 | XMS_ITS | Encounter Summary ---
:1975 Author Organization [place] Address [address] [facility] [place] [address] Care Team Providers Name Role Phone Jeremy Gibbs MD Unavailable Jose Monahan MD Unavailable Lise Mcqueen MD Unavailable [phone] Mar Alfaro Primary Care Provider Reason [...] Department Care Team Description 08/25/2017 Office Visit [facility] Lise Mcqueen Paralyti c strabismus, sixth or abducens nerve palsy, bilateral (Primary Dx); Clinic Peds Eye MD Mary Lou Diplopia; [address] [place] [address] Left homonymous hemianopsia; [facility] 3RD [place] Alternating esotropia; 3rd Fl [place], [place] [phone] Social History Tobacco Use Types Packs/Day Years [...] family.- Lise Mcqueen MD 09/07/2017 3:45 PM ING TRACER documented in this encounter Nursing Notes Geri [...] emesis. 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
--- OUTSIDE RECORDS SUMMARY | 2022-06-18 09:32 | XMS_ITS | Encounter Summary ---
:1975 Author Organization [place] Address [address] [place] [address]. [place] [address] Care Team Providers Name Role Phone Teresa [...] Department Care Team Description 12/09/2014 Office Visit [facility] Eye Adult Double Montana Meyer, Alt ernating esotropia (Primary Dx); Vision MD Sixth nerve palsy of both eyes; [address] [place] [address] Subjective visual disturbance; 3rd Floor, [address] [place] [address] Paralytic strabismus, sixth or abducens nerve palsy, bilateral; [place], [place] Left homony mous hemianopsia [phone] Social History Tobacco Use Types Packs/Day Years [...] field documented in this encounter Care Teams Wind Site Manager Relationship Specialty Start Date End Date Teresa Vaughan PCP - General Family Practice 05/29/13 05/30/[address] [address] documented as of this encounter
--- OUTSIDE RECORDS SUMMARY | 2022-06-18 09:32 | XMS_ITS | Encounter Summary ---
:1975 Author Organization [place] Address [address] [facility] [place] [address] Care Team Providers Name Role Phone Clement [...] Department Care Team Description 06/17/2016 Office Visit [facility] Jeremy Gibbs MD Accommodative component in esotropia (Pr imary Dx); Clinic Peds Eye [address] Hypertropia of right eye; [address] [place], [place] Monocu lar esotropia; [phone] Paralytic strabismus, sixth or abducens nerve palsy, bilateral; [facility] [place] [phone] Ocular torticollis 3rd Fl (Work) [place] [address] Social History Tobacco Use Types [...] - Jeremy Gibbs MD 11:54 AM 06/17/2016 SEAMER BLINDSTITCH documented in this encounter Nursing Notes Geri [...] 2014) S/P right superior rectus recession (November,) SEAMER BLINDSTITCH documented in this encounter Plan of Treatment Not on filedocumented as of this encounter Procedures Procedure Name Priority Date/Time Associated Diagnosis Comme nts SENSORIMOTOR Routine 06/17/2016 11:54 AM Hypertropia of right Results for this BOOKSEAMER BLINDSTITCH eye procedure are in Monocular esotro maxx the results Paralytic strabismus, sectio n. sixth or abducens nerve palsy, gonzalez ateral Ocular torticollis documented in this encounter Results Sensorimotor (06/17/2016 11:54 AM BOOKSEAMER BLINDSTITCH) Narrative Jeremy Gibbs MD - 06/17/2016 11:54 AM BOOKSEAMER BLINDSTITCH Performed by: THANH Mercado ?? . Patient [...] torticollis documented in this encounter Care Teams Rack Loader Relationship Specialty Start Date End Date Teresa Vaughan PCP - General Family Practice 05/29/13 05/30/17 [facility] [address] [place] [address] Montana Meyer MD MD Ophthalmology 12/10/14 05/30/17 [facility] [address] [place] [address] Jeremy Gibbs MD MD Ophthalmology 12/10/14 Jose Monahan MD MD Ophthalmology 12/10/14 documented as of this encounter
--- OUTSIDE RECORDS SUMMARY | 2022-06-18 09:32 | XMS_ITS | Encounter Summary ---
:1975 Author Organization [place] Address [address] [facility] [place] [address] Care Team Providers Name Role Phone Jeremy Gibbs MD Unavailable Jose Monahan MD Unavailable Lise Mcqueen MD Unavailable [phone] Mar Alfaro Primary Care Provider Reason for Visit Reason Comments Bilateral 6th Encounter Details Date Type Department Care Team Description 10/19/2018 Office Visit [facility] Lise Mcqueen ne rve palsy of both eyes (Primary Dx); Clinic Peds Eye MD Mary Lou Diplopia; [address] [place] [address] Ocular torticollis; [facility] 3RD [place] Alternating esotropia; 3rd Fl [place], [place] Left homonymous hemianopsia; [place] [address] Hypertropia of right eye [phone] Social History [...] eye documented in this encounter Care Teams Mixer Pigment Relationship Specialty Start Date End Date Mar Alfaro PCP - General 05/31/17 [facility] [address] [place] [address] Jeremy Gibbs MD MD Ophthalmology 12/10/14 oJse Monahan MD MD Ophthalmology 12/10/14 Lise Mcqueen MD MD Ophthalmology 05/31/[address] [place] [address] documented as of this encounter
--- OUTSIDE RECORDS SUMMARY | 2022-06-18 09:32 | XMS_ITS | Encounter Summary ---
:1975 Author Organization [place] Address [address] [facility] [place] [address] Care Team Providers Name Role Phone Teresa Vaughan Primary Care Provider Reason for Visit Auth/Cert - Closed Specialty Diagnoses / Procedures Referred By Contact Refer red To Contact Surgery Diagnoses Strabismus Ur Periop Procedures RECESSION RESECTION (REPAIR STRABISMUS) BILATERAL [facility] [facility] [place] [address] Phone: Fax: Referral ID Status Reason Start Date Expiration Date Visits Requ ested Visits Authorized [id number] Closed 1 1 Encounter Details Date Type Department Care Team Description 11/26/[address] [facility] Jose Garnett MD PeriOp Services [address] [facility] 2450 [facility] [address] [place] [address] [place], [place] [address] (Wo rk) Anesthesia Record Procedure Summary Procedure [...] Lisa Lubin Schoene cker, Susan Chlorhexidine; LIZZ oL, RN Injectable; Tolerated well RETIRED ETT 11/26/14; 1048; Mask 11/26/14 1048 by 11/26/14 1 150 by Ventilation: Easy with Hermilo Shaw Charles oral airway; Ease of VIOLET Barnett CRNA, APRN CRNA Intubation: Easy; Cuffed; Oral; Blade Type: Jose Guadalupe; Blade Size: 3; Place by: [facility]; Insertion Attempts: 1; Secured at (cm)to lip: 22 cm; Breath Sounds: Equal, clear and bilateral; End Tidal CO2: Present; Dentition: Intact; Grade View of Cords: 2 Incision/Surgical Site 11/26/14; 1111; Left; 11/26/14 1111 by 1210 by Eye; Conjunctiva of the KayleeMaggie R, Olivia Baez right eye; 08/10/17; LIZZ Long APRN NURSING HOME PHYSICIAN 1210 documented in this encounter Social History [...] and breathing well Jose Garnett M.D. Pager [phone] Anesthesia Preprocedure Evaluation - Jose Garnett MD - 11/26/2014 9:51 AM CDT Anesthesia Plan ASA Score: 3 . Plan for General - with Intravenous induction.Maintenance will be Inhalation. Routine analgesia and antiemetics to be used for post-operative care. Anesthetic plan, risks, benefits and alternatives discussed with: patient or sales representative malt liquors. . History & Physical Review History and [...] Relation Age of Onset ??? Cardiovascular Father [place] twice ??? Allergies Brother spring ??? Allergies [...] the record with the above resident or HYDRANT SETTER and agree with above assessment and recommendations. [...] 11:07 AM CDT 30 mg PRN, moderate pain (4-6), Starting on Tue11/26/14 at 1107, Anesthesia Intra-op [...] Intra-op documented in this encounter Care Teams Employment Clerk Relationship Specialty Start Date End Date Teresa Vaughan PCP - General Family Practice 05/29/13 05/30/[address] [address] documented as of this encounter
--- OUTSIDE RECORDS SUMMARY | 2022-06-18 09:32 | XMS_ITS | Encounter Summary ---
:1975 Author Organization [place] Address [address] [facility] [place] [address] Care Team Providers Name Role Phone Jeremy Gibbs MD Unavailable Jose Monahan MD Unavailable Lise Mcqueen MD Unavailable Mar Alfaro Primary Care Provider Reason for Visit Auth/Cert Specialty Diagnoses / Procedures Referred By Contact Refer red To Contact Surgery Diagnoses Strabismus, Diplopia, Alternating Esotropia, Hypertropia Ur Periop Procedures RECESSION RESECTION (REPAIR STRABISMUS) BILATERAL 2450 [place] [address] Phone: Fax: Referral ID Status Reason Start Date Expiration Date Visits Requ ested Visits Authorized [id number] 1 1 Encounter Details Date Type Department Care Team Description 08/10/2017 Surgery [facility] Lise Mcqueen Strabismus Repair PeriOp Services MD Mary Lou [address] [facility] [address] [place] [address] [place] [phone] [place] [address] Surgery Details Date/Time Status Location OR Service [...] MD Resident - Assisting 1 Special Needs CORRAL BORRERO CALLPt requests Post op RX for [...] Comments Blood Pressure 119/80 08/10/2017 10:05 AM NIGHT FILLER Pulse - - Temperature 36.6 ??C (97.9 ??F) 08/10/2017 10:05 AM NIGHT FILLER Respiratory Rate 20 08/10/2017 10:05 AM NIGHT FILLER Oxygen Saturation 97% 08/10/2017 10:05 AM NIGHT FILLER Inhaled Oxygen Concentration - - Weight 85.1 kg (187 lb 9.8 oz) 08/10/2017 10:05 AM NIGHT FILLER Height 157.5 cm (5' 2) 08/10/2017 10:05 AM NIGHT FILLER Body Mass Index 34.31 08/10/2017 10:05 AM NIGHT FILLER documented in this encounter Discharge Instructions Discharge [...] to arrange follow-up in 1-2 weeks. ?? [place]: Binh [place] at or our director of front office at ?? [place]: [phone] [facility] Adult Discharge Orders & Instructions [...] resolve slowly over 2- 4 weeks. ??? Forbes tinged tears ??? Swollen, painful or itchy [...] as discussed with Dr. Mcqueen. Rev. 10/2013 T FILLER documented in this encounter Medications at Time of Discharge Medication Sig Dispensed Refills Start Date End Date BuPROPion HCl (WELLBUTRIN Take 300 mg by mouth 0 XL PO)Indications: NOT TAKING CLONAZEPAM PO Take 0.5 mg by mouth 0 2 times daily as needed for anxiety (or sleep) Fish Oil-Cholecalciferol Take 1 capsule by 0 (FISH OIL + D3) 1465-0075 mouth daily MG-UNIT CAPSIndications: NOT TAKING FLUoxetine [...] PM CST Report to Nadiya Powell RN T FILLER Roseline Mcqueen RN - 08/09/2017 1:56 PM CST Called pt's cell phone (also home #) which goes straight to . Left message with surgery time change and new arrival and NPO times. T FILLER documented in this encounter Miscellaneous Notes Op [...] of 4.0 mm. SURGEON: Lise Mcqueen MD MANAGER DRIVE: Jeremy Michel MD ESTIMATED BLOOD LOSS: 1 [...] rectus muscle was hooked using small and South[place] hooks. The Tenon was carefully di ssected [...] MD MT: tamiko Name: KEY PERES Account: [id number] : 1975 Procedure Date: 08/10/2017 Document: [id number] T FILLER Brief Op Note - Jeremy Michel MD - 08/10/2017 1:40 PM CST [facility] Brief Operative Note Pre-operative diagnosis: Strabismus, Diplopia, Alternating Esotropia, Hypertropia Post-operative diagnosis Same Procedure: Procedure(s): Left Strabismus Repair - Wound Class: I-Clean Surgeon: Dr. Lise Mcqueen Assistants(s): Dr. Jeremy Michel Estimated blood loss: Minimal Specimens: None Findings: As expected Jeremy Michel MD Ophthalmology, PGY-3 T FILLER documented in this encounter Plan of Treatment Not on filedocumented as of this encounter Procedures Procedure Name Priority Date/Time Associated Diagnosis Comme nts SIMPLE RECESSION OR 08/10/2017 11:27 AM Strabismus, Di plopia, RESECTION, MUSCLE, NIGHT FILLER Alternating Esotropia, EXTRAOCULAR, BILATERAL, Hypertropia FOR STRABISMUS CORRECTION Special Needs CORRAL BORRERO CALLPt request s Post op RX for nausea from Dr. Mcqueen HCG QUALITATIVE URINE STAT 08/10/2017 10:25 AM NIGHT FILLER Results for this procedure are in the resu lts section. GLUCOSE BY METER Routine 08/10/2017 10:12 AM NIGHT FILLER Results for this procedure are in the resu lts section. documented in this encounter Results HCG qualitative urine (08/10/2017 10:25 AM NIGHT FILLER) Analysis Performed At Patho logist Time Signature HCG Qual Urine Negative NEG^Negati 08/10/2017 [facility] 10:50 AM NIGHT FILLER [facility] Comment: This test is for screening purposes. ??R esults should be interpreted along with the clinical picture. ??Confirmation te sting is available if warranted by ordering [id number], HCG Quantitative Pregna ncy. Specimen Anatomical Collection Method Collection Time Receive d Time (Source) Location / / Volume Laterality Urine specimen URINE SPECIMEN 08/10/2017 10:25 018 (specimen) OBTAINED BY CLEAN AM NIGHT FILLER 10:[address] CATCH PROCEDURE / Unknown Dontae Lazo MD LAB - URINE ORDERABLES Performing Organization Address City/State/ZIP Code Phon e Number [facility] [address] [place], [place] [id number] [place] [address] (ABNORMAL) Glucose by meter (08/10/2017 10:12 AM NIGHT FILLER) P athologist Signature Glucose 106 (H) 70 - 99 08/10/2017 POINT OF CARE mg/dL 10:15 AM NIGHT FILLER TEST, GLUCOSE Specimen Anatomical Collection Method Collection Time Receive d Time (Source) Location / / Volume Laterality 08/10/2017 10:12 08/10/2017 AM NIGHT FILLER 10:15 AM NIGHT FILLER Lise Mcqueen MD LAB - BEAKER POCT [...] acetaminophen (TYLENOL) tablet Given 08/10/2017 10:51 AM NIGHT FILLER 1,0 00 mg 1,000 mg 1,000 mg, Oral, ONCE, On Tue08/10/17 at 1015, For 1 dose, Maximum acetaminophen dose from all sources = 75 mg/kg/day not to exceed 4 gram, Pre-procedure BSS ophthalmic solution Given 08/10/2017 12:13 PM 1 applicator Operativ e PRN, Starting on Tue NIGHT FILLER Site /Surgical Site 08/10/17 at 1213, Intra-procedure dexamethasone (DECADRON) injection 6 mg 6 mg, Intravenous, EVERY 10 MIN PRN, favio sea, Administer over 1 Minutes, Starting on Tue08/10/17 at 1342, For 1 dose, For ordered doses up t o 20 mg, give IV Push undiluted over 1 minute., PACU/Phase II HYDROmorphone (PF) (DILAUDID) injection 0.2 Given 08/10/2017 4:20 PM NIGHT FILLER 0.2 mg mg 0.2 mg, Intravenous, EVERY [...] administer as Given 08/10/2017 3 :26 PM NIGHT FILLER 1 tablet ordered by surgeon for take home use CONTINUOUS PRN, Starting on Tue08/10/17 at 1407, Until Tue08/10/17 at 1934, May administer oral pain medications as ordered by surgeon for take home use. Discontinue IV pain medication prior to administration of oral pain medication., PACU/Phase II oxymetazoline (AFRIN) 0.05 Given 08/10/2017 12:13 PM 1 spray Operative Site/Surgical % spray NIGHT FILLER Site PRN, Starting on Tue08/10/17 at 1213, Intra-procedure scopolamine (TRANSDERM) 72 Given 08/10/2017 10:52 AM NIGHT FILLER 1 patch Behind Right Ear hr patch 1 patch 1 patch, Transdermal, ONCE, On Tue08/10/17 at 1015, For 1 dose, Each 1.5 mg patch delivers 1 mg of scopolamine., Pre-procedure documented in this encounter Active and Recently Administered Medications Times are shown in NIGHT FILLER. Scheduled Medication Order 08/08/2017 08/09/2017 08/10/2017 acetaminophen [...] II documented in this encounter Care Teams Ripshear Operator Relationship Specialty Start Date End Date Mar Alfaro PCP - General 05/31/17 [facility] [address] [place] [address] Jeremy Gibbs MD MD Ophthalmology 12/10/14 Jose Monahan MD MD Ophthalmology 12/10/14 Lise Mcqueen MD MD Ophthalmology 05/31/17 [address] [facility] [address] [place] [address] documented as of this encounter
--- OUTSIDE RECORDS SUMMARY | 2022-06-18 09:32 | XMS_ITS | Encounter Summary ---
:1975 Author Organization [place] Address [address] [place] [address]. [place] [address] Care Team Providers Name Role Phone Jeremy Gibbs MD Unavailable Jose Monahan MD Unavailable Lise Mcqueen MD Unavailable [phone] Mar Alfaro Primary Care Provider Reason for Visit Auth/Cert Specialty Diagnoses / Procedures Referred By Contact Refer red To Contact Surgery Diagnoses Strabismus, Diplopia, Alternating Esotropia, Hypertropia Ur Periop Procedures RECESSION RESECTION (REPAIR STRABISMUS) BILATERAL 2450 [place] [address] Phone: Fax: Referral ID Status Reason Start Date Expiration Date Visits Requ ested Visits Authorized [id number] 1 1 Encounter Details Date Type Department Care Team Description 08/10/2017 Anesthesia Event [facility] Dontae Lazo MD [address] [facility] [address] [place], [place] [address] PeriOp Services Osmany Farris MD [facility] [address] [facility] 515 [place] [address] [facility]0 [place] [phone] Anesthesia Record Procedure Summary Procedure Name Responsible [...] Kra jacic, Jennifer right eye; 08/10/17; LIZZ Lnog APRN CRNA 1210 Peripheral IV 08/10/17; 1042; 20 G, 1 08/10/17 1042 by 8 1710 by 1/4 inch; Right; Hand; Debi Doan RN Butterfie ld, Kirk, Chlorhexidine; RN Injectable; Tolerated well Retired Non-Surgical 08/10/17; 1133; Easy; 08/10/17 1133 by 10/23 1157 by Airway Intravenous; 4; IsmacOlivia Jen nifer laryngeal mask airway; VIOLET Long CRNA, Krystian PRN CONTINUOUS PROCESS TANNER ROTARY DRUM center of mouth, midline; Equal, clear and bilateral; CONTINUOUS PROCESS TANNER ROTARY DRUM; Tlcic CONTINUOUS PROCESS TANNER ROTARY DRUM Retired Non-Surgical 08/10/17; 1158; Easy; 08/10/17 1158 by 10/23 1348 by Airway 3.5; laryngeal mask Andrade, Olivia Lopez airway (AirQ); VIOLET Salcedo CRNA, AP RN CONTINUOUS PROCESS TANNER ROTARY DRUM of mouth; Equal, clear and bilateral; CONTINUOUS PROCESS TANNER ROTARY DRUM; Ismac CONTINUOUS PROCESS TANNER ROTARY DRUM documented in this encounter Social History Tobacco [...] Lopez MD August 10, 2017 2:51 PM ICAL ORDER FILLER Anesthesia Preprocedure Evaluation - Dontae Lazo MD [...] ??? Fish Oil-Cholecalciferol (FISH OIL + D3) 5217-2043 MG-UNIT CAPS Take 1 capsule by mouth [...] blood products discussed: No . . . ICAL ORDER FILLER documented in this encounter Miscellaneous Notes Anesthesia [...] Rate (observed): (!) 4 Electronically Signed By: Oilvia Zafar APRN CRNA August 10, 2017 2:01 PM ICAL ORDER FILLER documented in this encounter Plan of Treatment Not on filedocumented as of this encounter Visit Diagnoses Not on filedocumented in this encounter Administered Medications Inactive Administered Medications - up to 3 most recent administrations Medication Order MAR Action Action Date Dose Rate Site dexamethasone (DECADRON) injection Given 08/10/2017 12:55 PM CLERICAL ORDER FILLER 8 mg Intravenous, PRN, Administer over 1 Minutes, Starting on Tue08/10/17 at 1255, Anesthesia Intra-op fentaNYL (PF) (SUBLIMAZE) injection Given 08/10/2017 12:23 PM CLERICAL ORDER FILLER 50 mcg Intravenous, PRN, moderate to severe pain, Administer over 3-5 Minutes, Starting on Tue08/10/17 at 1131, Anesthesia Intra-op Given 08/10/2017 12:19 PM CLERICAL ORDER FILLER 25 mcg Given 08/10/2017 11:31 AM CLERICAL ORDER FILLER 25 mcg lactated ringers infusion New Bag 08/10/2017 11:27 AM CLERICAL ORDER FILLER Intravenous, CONTINUOUS PRN, Anesthesia Intra-op, Starting on Tue08/10/17 at 1127, Until Tue08/10/17 at 1400 midazolam (VERSED) injection Given 08/10/2017 11:27 AM CLERICAL ORDER FILLER 2 mg Intravenous, Administer over 2 Minutes, PRN, anxiety, Starting on Tue08/10/17 at 1127, Anesthesia Intra-op No abx ordered pre-op Given 08/10/2017 11:27 AM CLERICAL ORDER FILLER 1 each PRN, Starting on Tue08/10/17 at 1127, Until Tue08/10/17 at 1400, Anesthesia Intra-op ondansetron (ZOFRAN) injection Given 08/10/2017 1:33 PM CLERICAL ORDER FILLER 4 mg Intravenous, PRN, nausea, vomiting, Administer over 2-5 Minutes, Starting on Tue08/10/17 at 1333, Anesthesia Intra-op propofol (DIPRIVAN) infusion Rate/Dose 08/10/2017 200 mcg/kg/min 102.1 Intravenous, CONTINUOUS PRN, Change 12:53 PM CLERICAL ORDER FILLER mL/hr Starting on Tue08/10/17 at 1140, Anesthesia Intra-op Rate/Dose Change 08/10/2017 12:42 PM CLERICAL ORDER FILLER 175 mcg/kg/min 89.4 mL/hr New Bag 08/10/2017 12:17 PM CLERICAL ORDER FILLER propofol (DIPRIVAN) injection 10 mg/mL v ial Given 08/10/2017 11:31 AM CLERICAL ORDER FILLER 200 mg Intravenous, PRN, Starting on Tue08/10/17 at 1131, Anesthesia Intra-op documented in this encounter Care Teams Food Services Manager Relationship Specialty Start Date End Date Mar Alfaro PCP - General 05/31/17 [facility] [address] [place] [address] Jeremy Gibbs MD MD Ophthalmology 12/10/14 Jose Monahan MD MD Ophthalmology 12/10/14 Lise Mcqueen MD MD Ophthalmology 05/31/[address] [place] [address] documented as of this encounter
--- OUTSIDE RECORDS SUMMARY | 2022-06-18 09:32 | XMS_ITS | Encounter Summary ---
:1975 Author Organization [place] Address [address] [place] [address] Care Team Providers Name Role Phone Rochellelaurojuan Tereas D Primary Care Provider [place] Meyer MD [...] Department Care Team Description 05/03/2017 Office Visit [facility] Lise Mcqueen strabismus, sixth or abducens nerve palsy, bilateral (Primary Dx); Clinic Peds Eye MD Mary Lou Hypertropia of right eye; [address] [place] [address] Diplopia; [facility] [address]RD [place] Ocular torticollis; 3rd Fl [place], [place] [phone] Social History Tobacco Use Types Packs/Day Years [...] esotropia documented in this encounter Care Teams Hoop Maker Relationship Specialty Start Date End Date Teresa Vaughan PCP - General Family Practice 05/29/13 05/30/17 [facility] [address] [place] [address] [place] Meyer MD MD Ophthalmology 12/10/14 05/30/17 [facility] [address] [place] [address] Jeremy Gibbs MD MD Ophthalmology 12/10/14 Jose Monahan MD MD Ophthalmology 12/10/14 documented as of this encounter
--- OUTSIDE RECORDS SUMMARY | 2022-06-18 09:33 | XMS_ITS | Encounter Summary ---
:1975 Author Organization [facility] Address [address] [place] [address]. [place] [address] Care Team Providers Name Role Phone Teresa Vaughan Lyla Primary Care Provider Reason for Visit Reason Comments Sixth Nerve Palsy no changes overall, uses tap e to occlude Left lens. No pain. 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
--- OUTSIDE RECORDS SUMMARY | 2022-06-18 09:33 | XMS_ITS | Encounter Summary ---
:1975 Author Organization [facility] Address [address] [place] [address] Care Team Providers Name Role Phone RochellesheridanTeresa Primary Care Provider Montana Meyer MD Unavailable Jeremy Gibbs MD Unavailable Jose Monahan MD Unavailable Lise Mcqueen MD Unavailable [phone] Mar Alfaro Primary Care Provider Lise Mcqueen MD Unavailable [phone] Jonh Garcia MD Unavailable Ta Lane OD Unavailable Encounter Details Date Type Department Care Team Description 06/11/2013 Office Visit[facility] Jeremy Gibbs MD [address] [place] [address] (Wo rk) Social History Tobacco Use Types Packs/Day Years Used Date Smoking Tobacco: Every Day Cigarettes 0.3 2 Alcohol Use Standard Drinks/Week Comments Yes 0 (1 standard drink = 0.6 oz pure alcoho l) occasional Sex Assigned at Date Recorded Not on file documented as of this encounter Progress Notes Jeremy Gibbs MD - 06/11/2013 12:12 PM CST Trailer Park Manager: Jeremy Gibbs Status: Signed Encounter: 2013-06-11 12:12:00.000 Type: Chart Note Mailed patient's outside CT scan and report to patient's home for her records. Electronically signed by:Madhavi Steve Jun 11 2013 12:13PM AUDOGRAPH OPERATOR GRAPH OPERATOR documented in this encounter Plan of Treatment Not on filedocumented as of this encounter Visit Diagnoses Not on filedocumented in this encounter Care Teams Reproduction Technician Relationship Specialty Start Date End Date Teresa Vaughan PCP - General Family Practice 05/29/13 05/30/17 [facility] [address] [place] [address] Mar Alfaro PCP - General 05/31/17 [facility] [address] [place] [address] Montana Meyer MD MD Ophthalmology 12/10/14 05/30/17 [facility] [address] [place] [address] Jeremy Gibbs MD MD Ophthalmology 12/10/14 Jose Monahan MD MD Ophthalmology 12/10/14 Lise Mcqueen MD Ophthalmology 05/31/[address] [place] [id number] Lise Mcqueen, Assigned Surgical Provider 10/11/[address] [place] [address] [id number] Jonh Garcia MD Assigned Surgical Provider 10/12/[address] [place] [phone], ILDA Assigned Surgical Provider 01/02/[address] [place] [id number] documented as of this encounter
--- OUTSIDE RECORDS SUMMARY | 2022-06-18 09:33 | XMS_ITS | Encounter Summary ---
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 Encounter Details Date Type Department Care Team Description 09/20/2013 Office Visit [facility] Eye Adult Double Shani Gibbs MD Subjective visual disturbance (Primary D x); Vision [address] [facility] Diplopia [address] [place] [address] [address] Floor, [address] [address] [place], [place] [phone] (Wo rk) [address] [phone] Social History Tobacco Use Types Packs/Day Years Used Date Smoking Tobacco: Every Day Cigarettes 0.3 2 Alcohol Use Standard Drinks/Week Comments Yes 0 (1 standard drink = 0.6 oz pure alcoho l) occasional Sex Assigned at Date Recorded Not on file documented as of this encounter Patient Instructions Patient InstructionsLeJeremy mancini MD - 09/20/2013 3:34 PM [employer] For your double vision, to block the vision in one eye, you can place SCOTCH GIFT WRAP TAPE on one of the lenses on the inside of the lens. Future Appointments Date Time Provider Department Center 11/13/2013 12:30 PM Rebecca Thompson OT [facility] 01/17/2014 9:00 AM Jeremy Gibbs MD URPED[facility] [employer] documented in this encounter Progress Notes Jeremy [...] - Jeremy Gibbs MD 4:12 PM 09/20/2013 [employer] documented in this encounter Plan of Treatment Not on filedocumented as of this encounter Procedures Procedure Name Priority Date/Time Associated Diagnosis Comme nts EXTERNAL PHOTOS 9 Routine 09/20/2013 4:11 PM Subjective visual CARD[employer]AL GA[employer]ES [employer] disturbance Diplopia SENSORIMOTOR Routine 09/20/2013 4:11 PM Subjective visual [employer] disturbance Diplopia HC SENSORIMOTOR EXAM Routine 09/20/2013 3:16 PM Subjective vis ual [employer] disturbance documented in this encounter Results External Photos 9 Cardinal Gazes (09/20/2013 4:11 PM [employer]) Jeremy Gibbs MD OPHTHALMOLOGY Sensorimotor (09/20/2013 4:11 PM [employer]) Jeremy Gibbs MD OPHTHALMOLOGY documented in this encounter Visit Diagnoses Diagnosis Subjective visual disturbance - Primary Subjective visual disturbance, unspecifi ed Diplopia documented in this encounter Care Teams Truck Driver Instructor Relationship Specialty Start Date End Date Teresa Vaughan PCP - General Family Practice 05/29/13 05/30/17 [facility] [address] [place] [address] documented as of this encounter
--- OUTSIDE RECORDS SUMMARY | 2022-06-18 09:33 | XMS_ITS | Encounter Summary ---
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 Encounter Details Date Type Department Care Team Description 01/17/2014 Office Visit [facility] Eye Adult Double Shani Gibbs MD [address] [place] [address] Vision loss (Primary Dx); Vision Rebecca Thompson, LUIS EDUARDO OSEGUERAENSTEEN BLDG [address] [place] [address] Subjective visual disturbance; [address] Diplopia; South Left homonymous hemianopsia; 3rd Floor, [address] Sixth [place] [address] Social History Tobacco Use Types [...] palsy documented in this encounter Care Teams Banquet Server Relationship Specialty Start Date End Date Teresa Vaughan PCP - General Family Practice 05/29/13 05/30/17 [facility] [address] [place] [address] documented as of this encounter
--- OUTSIDE RECORDS SUMMARY | 2022-06-18 09:33 | XMS_ITS | Encounter Summary ---
:1975 Author Organization [facility] Address [address] [place] [address]. [place] [address] Care Team Providers Name Role Phone Teresa Vaughan Primary Care Provider Reason for Visit Auth/Cert - Closed Specialty Diagnoses / Procedures Referred By Contact Refer red To Contact Surgery Diagnoses Strabismus Ur Periop Procedures RECESSION RESECTION (REPAIR STRABISMUS) BILATERAL [address] [place] [phone] Phone: Fax: Referral ID Status Reason Start Date Expiration Date Visits Requ ested Visits Authorized [id number] Closed 1 1 Encounter Details Date Type Department Care Team Description 08/13/2014 Anesthesia Event M [facility] Jose Flynn MD [address] [facility] [address] [place] [address] PeriOp Services Carlos Ryan APRN MANAGER CREDIT COLLECTIONS [address] [place], [place] [address] [address] [place] [address] Anesthesia Record Procedure Summary Procedure Name [...] Locke Smith, Ca sey, RN Injectable; Tolerated GENERAL PARTNER MANAGER CREDIT COLLECTIONS well Incision/Surgical Site 08/13/14; 0905; 08/13/14 0905 by 08/10/17 1210 by Bilateral; Eye; Maggie Martínez Jennif er Bilateral Eyes; LIZZ Long APRN MANAGER CREDIT COLLECTIONS 08/10/17; 1210 documented in this encounter Social [...] and breathing well Jose Flynn M.D. Pager [phone] ESTATE BROKER Anesthesia Preprocedure Evaluation - Jose Flynn MD [...] benefits and alternatives discussed with: patient or registered representative. . History & Physical Review History [...] the record with the above resident or AUTOMATION TENDER and agree with above assessment and recommendations. JOSE FLYNN M.D. Staff Anesthesiologist August 13, 2014, 7:41 AM . ESTATE BROKER documented in this encounter Miscellaneous Notes Anesthesia Care Transfer Note - Carlos Hendricks APRN MANAGER CREDIT COLLECTIONS - 08/13/2014 9:52 AM CST Anesthesia Care Transfer Note Patient: Key Peres Transferred to: PACU Patient vital signs: stable Airway: none ESTATE BROKER documented in this encounter Plan of Treatment Not on filedocumented as of this encounter Visit Diagnoses Not on filedocumented in this encounter Administered Medications Inactive Administered Medications - up to 3 most recent administrations Medication Order MAR Action Action Date Dose Rate Site dexamethasone (DECADRON) injection Given 08/13/2014 8:33 AM REAL ESTATE BROKER 8 mg Intravenous, PRN, Administer over 1-4 Minutes, Starting on Tue08/13/14 at 0833, Anesthesia Intra-op fentaNYL (SUBLIMAZE) injection Given 08/13/2014 9:45 AM REAL ESTATE BROKER 50 mcg PRN, moderate to severe pain, Starting on Tue08/13/14 at 0825, Anesthesia Intra-op Given 08/13/2014 8:49 AM REAL ESTATE BROKER 50 mcg Given 08/13/2014 8:25 AM REAL ESTATE BROKER 50 mcg glycopyrrolate (ROBINUL) injection Given 08/13/2014 9:26 AM REAL ESTATE BROKER 0.7 mg Intravenous, PRN, Starting on Tue08/13/14 at 0825, Anesthesia Intra-op Given 08/13/2014 8:25 AM REAL ESTATE BROKER 0.2 mg lactated ringers infusion New Bag 08/13/2014 8:58 AM REAL ESTATE BROKER Intravenous, CONTINUOUS PRN, Anesthesia Intra-op, Starting on Tue08/13/14 at 0816, Until Tue08/13/14 at 0951 New Bag 08/13/2014 8:16 AM REAL ESTATE BROKER lidocaine 1 % injection Given 08/13/2014 8:00 AM REAL ESTATE BROKER 0.2 mLs PRN, Starting on Tue08/13/14 at 0800, Anesthesia Intra-op lidocaine injection 2% (MDV) Given 08/13/2014 8:25 AM REAL ESTATE BROKER 100 mg Intravenous, PRN, Starting on Tue08/13/14 at 0825, Anesthesia Intra-op midazolam (VERSED) injection Given 08/13/2014 8:16 AM REAL ESTATE BROKER 2 mg Intravenous, PRN, anxiety, Starting on Tue08/13/14 at 0816, Anesthesia Intra-op neostigmine (PROSTIGMINE) injection Given 08/13/2014 9:26 AM REAL ESTATE BROKER 3.5 mg Intravenous, PRN, Starting on Tue08/13/14 at 0926, Anesthesia Intra-op No abx ordered pre-op Given 08/13/2014 8:25 AM REAL ESTATE BROKER 1 each PRN, Starting on Tue08/13/14 at 0825, Until Tue08/13/14 at 0951, Anesthesia Intra-op ondansetron (ZOFRAN) injection Given 08/13/2014 9:21 AM REAL ESTATE BROKER 4 mg Intravenous, PRN, nausea, vomiting, Administer over 2-5 Minutes, Starting on Tue08/13/14 at 0921, Anesthesia Intra-op propofol (DIPRIVAN) injection 10 mg/mL v ial Given 08/13/2014 8:25 AM REAL ESTATE BROKER 200 mg Intravenous, PRN, Starting on Tue08/13/14 at 0825, Anesthesia Intra-op rocuronium (ZEMURON) injection Given 08/13/2014 8:25 AM REAL ESTATE BROKER 50 mg Intravenous, PRN, Starting on Tue08/13/14 at 0825, Anesthesia Intra-op documented in this encounter Care Teams Chicken Handler Relationship Specialty Start Date End Date Teresa Vaughan PCP - General Family Practice 05/29/13 05/30/17 [place] [address] documented as of this encounter
--- OUTSIDE RECORDS SUMMARY | 2022-06-18 09:33 | XMS_ITS | Encounter Summary ---
:1975 Author Organization [facility] Address [address] [place] [address] Care Team Providers Name Role Phone Teresa Vaughan Lyla Primary Care Provider Reason for Visit Auth/Cert - Closed Specialty Diagnoses / Procedures Referred By Contact Refer red To Contact Surgery Diagnoses Strabismus Ur Periop Procedures RECESSION RESECTION (REPAIR STRABISMUS) BILATERAL [address] [place] [address] Phone: Fax: Referral ID Status Reason Start Date Expiration Date Visits Requ ested Visits Authorized [id number] Closed 1 1 Encounter Details Date Type Department Care Team Description 04/02/2014 Hospital Encounter UR PACU Ricardo Meyerick Postoperative eye [address] Christopher Arita MD [facility] (Primary Dx) e, [place], [place] [address] [address] [place], [place] [phone] Social History Tobacco Use Types Packs/Day Years [...] InstructionsNicole Jj - 04/02/2014 5:52 PM CDT [facility] Adult Discharge Orders & Instructions [...] resolve slowly over 2- 4 weeks. ??? [place] tinged tears ??? Swollen, painful or itchy [...] to the tearing and oinment. Please call [phone] for other concerns including sustained vision loss, [...] daily as needed for anxiety (or sleep) [id number] Apply to both eyes 1 Tube 1 [...] the lateral rectus SURGEON: Montana Meyer MD STREETCAR DISPATCHER: Sathya Wallis MD IMPLANTS: None COMPLICATIONS: None [...] for the entire procedure. Montana Meyer MD Steam Cleaning Machine Operator Pediatric Ophthalmology & Strabismus Department of Ophthalmology & Visual Neurosciences [facility] Brief Op Note - Sathya Wallis MD - 04/02/2014 2:51 PM CDT [facility] Brief Operative Note Pre-operative diagnosis: Strabismus [...] athologist Signature HCG Qual Urine Negative NEG [facility] Specimen Anatomical Collection Method Collection Time Receive d Time (Source) Location / / Volume Laterality Urine specimen URINE SPECIMEN / 04/02/2014 10:51 04/02 (specimen) Unknown AM CDT 10:56 AM CDT Abby Maldonado MD LAB - URINE ORDERABLES Performing Organization Address City/State/ZIP Code Phon e Number [facility] [address] [place] [address] [facility] documented in this encounter Visit [...] Intra-procedure documented in this encounter Care Teams Reference Library Assistant Relationship Specialty Start Date End Date Teresa Vaughan PCP - General Family Practice 05/29/13 05/30/17 [facility] [address] [place] [address] documented as of this encounter
--- OUTSIDE RECORDS SUMMARY | 2022-06-18 09:33 | XMS_ITS | Encounter Summary ---
:1975 Author Organization [facility] Address [address] [place] [address]. [place] [address] Care Team Providers Name Role Phone Teresa Vaughan Lyla Primary Care Provider Reason for Visit Auth/Cert - Closed Specialty Diagnoses / Procedures Referred By Contact Refer red To Contact Surgery Diagnoses Strabismus Ur Periop Procedures RECESSION RESECTION (REPAIR STRABISMUS) BILATERAL [address] [place] [address] Phone: Fax: Referral ID Status Reason Start Date Expiration Date Visits Requ ested Visits Authorized [id number] Closed 1 1 Encounter Details Date Type Department Care Team Description 08/13/2014 Surgery [facility] Montana Meyer, Brittany trabismus Repair Both PeriOp Services MD Eyes [address] [place] [address] [address] [facility] [phone] [place] [address] Surgery Details Date/Time Status Location OR Service [...] Comments Blood Pressure 116/82 08/13/2014 11:16 AM PHOTOGRAPHIC DOUBLE Pulse - - Temperature 36.9 ??C (98.5 ??F) 08/13/2014 11:16 AM PHOTOGRAPHIC DOUBLE Respiratory Rate 9 08/13/2014 11:16 AM PHOTOGRAPHIC DOUBLE Oxygen Saturation 95% 08/13/2014 11:16 AM PHOTOGRAPHIC DOUBLE Inhaled Oxygen Concentration - - Weight 66.8 kg (147 lb 4.3 oz) 08/13/2014 6:34 AM PHOTOGRAPHIC DOUBLE Height 157.5 cm (5' 2) 08/13/2014 6:34 AM PHOTOGRAPHIC DOUBLE Body Mass Index 26.94 08/13/2014 6:34 AM PHOTOGRAPHIC DOUBLE documented in this encounter Discharge Instructions Discharge [...] already, pleasecall Binh Patrick at or our first front ventilator at and arrange to follow-up in 1 week. Please call [phone] For postop eye concerns including discharge, eye [...] To contact a doctor, call or: ??? [phone] and ask for the Resident Seating Upholsterer for: (answered 24 hours a day) ??? Emergency Department: [facility] Department: [phone] [place] [facility] Department: [phone] [facility] Emergency Department: [phone] Rev. 05/2014 OGRAPHIC DOUBLE documented in this encounter Medications at Time [...] daily Multiple 0 08/04/2017 Vitamins-Minerals (MULTIVITAMIN OR) tosrfrzr-[id number] Apply to both eyes 1 Tube 0 11/25/2014 thasone (MAXITROL) three times a day [id number] OINT for one week. ophthalmic ointmentIndications: Sixth [...] and answered all pt and family questions. OGRAPHIC DOUBLE Carlos Richardson RN - 08/13/2014 11:20 AM CST Pt up to chair, requested to get fully dressed. SPO2 monitor in place, all other monitors unhooked. Pt VSS, states pain is a tolerable level. Drinking and tolerating sips of water. Cold washcloth applied to BL eyes for comfort. OGRAPHIC DOUBLE Bree Andres RN - 08/13/2014 11:10 AM CST Report to Carlos Richardson RN OGRAPHIC DOUBLE Debi Doan RN - 08/13/2014 6:56 AM CST Denies chance of - not sexually active and has IUD in place. OGRAPHIC DOUBLE documented in this encounter Miscellaneous Notes Op [...] left superior rectus SURGEON: Montana Meyer MD APPLICATION DEVELOPMENT DIRECTOR: None IMPLANTS: None COMPLICATIONS: None ESTIMATED BLOOD [...] for the entire procedure. Montana Meyer MD Vessel Welder Pediatric Ophthalmology & Strabismus Department of Ophthalmology & Visual Neurosciences [facility] OGRAPHIC DOUBLE documented in this encounter Plan of Treatment Not on filedocumented as of this encounter Procedures Procedure Name Priority Date/Time Associated Diagnosis Comme nts SIMPLE RECESSION OR 08/13/2014 8:16 AM PHOTOGRAPHIC DOUBLE Strabismus RESECTION, MUSCLE, EXTRAOCULAR, BILATERAL, FOR STRABISMUS CORRECTION documented in this encounter Visit Diagnoses Not on filedocumented in this encounter Administered Medications Inactive Administered Medications - up to 3 most recent administrations Medication Order MAR Action Action Date Dose Rate Site balanced salts (BSS) Given 08/13/2014 8:56 AM 1 applicator Both Eyes ophthalmic solution PHOTOGRAPHIC DOUBLE PRN, Starting on Tue08/13/14 at 0856, Intra-procedure HYDROmorphone (PF) (DILAUDID) injection Given 08/13/2014 10:37 A M PHOTOGRAPHIC DOUBLE 0.3 mg 0.3-0.5 mg 0.3-0.5 mg, Intravenous, EVERY 10 MIN PRN, moderate to severe pain, acute pain.?May administer if RR is > 10 , Starting on Tue08/13/14 at 0923, If fentanyl is also ordered, use HYDROmorphone if pain control insufficient with fentanyl or a longer acting agent is needed. Max cumulative dose = 2 mg, PACU/Phase II Given 08/13/2014 10:21 AM PHOTOGRAPHIC DOUBLE 0.3 mg lidocaine injection 2% Given 08/13/2014 9:31 AM 1 mL Operative Site/Surgical (MDV) PHOTOGRAPHIC DOUBLE Site PRN, Starting on Tue08/13/14 at 0931, Intra-procedure ondansetron (ZOFRAN) injection 4 mg Given 08/13/2014 10:09 AM PHOTOGRAPHIC DOUBLE 4 mg 4 mg, Intravenous, EVERY 30 [...] 0.05 % nasal Given 08/13/2014 8:39 AM PHOTOGRAPHIC DOUBLE 3 mLs Both Eyes spray PRN, Starting on Tue08/13/14 at 0835, Intra-procedure Given 08/13/2014 8:35 AM PHOTOGRAPHIC DOUBLE 3 mLs Both Eyes povidone-iodine 5 % ophthalmic solution Given 08/13/2014 8:58 AM PHOTOGRAPHIC DOUBLE 2 drops PRN, Starting on Tue08/13/14 at 0858, Intra-procedure documented in this encounter Active and Recently Administered Medications Times are shown in PHOTOGRAPHIC DOUBLE. PRN Medication Order 08/11/2014 08/12/2014 08/13/2014 balanced salts (BSS) ophthalmic solution (CANCELED) 0856 (Given - Provider: Montana Meyer MD - Comment: Used as irrigation during case) PRN, Starting Tue08/13/14 at 0856, Intra-procedure HYDROmorphone (PF) (DILAUDID) injection 0.3-0.5 mg (CANCELED) 1021 (Given - Provider: Bree Andres, LIZZ)1037 (Given - Provider: Bree Andres RN) 0.3-0.5 mg, Intravenous, EVERY 10 MIN VT N, Starting 08/13/14 at 0923, Until 08/13/14 [...] Intra-procedure documented in this encounter Care Teams Gluing Machine Operator Electronic Relationship Specialty Start Date End Date Teresa Vaughan PCP - General Family Practice 05/29/13 05/30/[address] [address] documented as of this encounter
--- OUTSIDE RECORDS SUMMARY | 2022-06-18 09:33 | XMS_ITS | Encounter Summary ---
:1975 Author Organization [place] Address [address] [place] [address]. [place] [address] Care Team Providers Name Role Phone Teresa [...] Department Care Team Description 07/18/[address] [facility] Eye Adult Double Shani Gibbs MD [address] [place] [address] Alternating esotropia (Primary Dx); Vision Montana Meyer MD [facility] [address] [place] [address] Sixth nerve palsy of both eyes; [address] Left homonymous hemianopsia; 3rd Floor, [address] [place] [phone] Social History Tobacco Use Types Packs/Day Years Used Date Smoking Tobacco: Every Day Cigarettes 0.3 2 Alcohol Use Standard Drinks/Week Comments Yes 0 (1 standard drink = 0.6 oz pure alcoho l) occasional Sex Assigned at Date Recorded Not on file documented as of this encounter Patient Instructions Patient InstructionsBoMontana grande MD - 07/18/2014 11:11 AM CST Consider further strabismus surgery. ICAL AIDES TEACHER documented in this encounter Progress Notes Montana [...] with this note. - Montana Meyer MD ICAL AIDES TEACHER documented in this encounter Nursing Notes Blue [...] black line in vision on left side ICAL AIDES TEACHER documented in this encounter Plan of Treatment Scheduled Orders Name Type Priority Associated Diagnoses Order S chedule Silvina-Operative Procedures Routine Alternating Esot ropia Ordered: 07/18/2014 Worksheet (Peds) Sixth nerve palsy of both eyes Left homonymous hemianopsia Subjective visual disturbance documented as of this encounter Procedures Procedure Name Priority Date/Time Associated Diagnosis Comme nts SENSORIMOTOR Routine 07/18/2014 11:29 AM Alternating Esotropia SURGICAL AIDES TEACHER EXTERNAL PHOTOS OU (BOTH Routine 07/18/2014 11:29 AM Alt ernating Esotropia EYES) SURGICAL AIDES TEACHER Sixth nerve palsy of both eyes documented in this encounter Results Sensorimotor (07/18/2014 11:29 AM SURGICAL AIDES TEACHER) Jeremy Gibbs MD OPHTHALMOLOGY External Photos OU (both eyes) (07/18/2014 11:29 AM SURGICAL AIDES TEACHER) Montana Meyer MD OPHTHALMOLOGY documented in this encounter Visit Diagnoses Diagnosis 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
--- OUTSIDE RECORDS SUMMARY | 2022-06-18 09:33 | XMS_ITS | Encounter Summary ---
:1975 Author Organization [facility] Address [address] [place] [address]. [place] [address] Care Team Providers Name Role Phone Teresa Vaughan Primary Care Provider Reason for Visit Auth/Cert - Closed Specialty Diagnoses / Procedures Referred By Contact Refer red To Contact Surgery Diagnoses Strabismus Ur Periop Procedures RECESSION RESECTION (REPAIR STRABISMUS) BILATERAL [address] [facility] KIARA WOLF [address] Phone: Fax: Referral ID Status Reason Start Date Expiration Date Visits Requ ested Visits Authorized [id number] Closed 1 1 Encounter Details Date Type Department Care Team Description 04/02/2014 Anesthesia Event [facility] Abby Maldonado PeriOp Services MD Shaka [address] [facility] XX RESIGNED XX [place] [address] [place], [place] [address] (Wo rk) Anesthesia Record Procedure Summary Procedure [...] Fitzpatric k, Topical; Tolerated well VIOLET Lehman WAISTLINE JOINER OVERLOCK Susan t RETIRED ETT 04/02/14; 1341; Airway 04/02/14 1341 by 04/02/14 1504 by Size: 7; Cuffed; Oral Guerita Pacheco, Awilda العراقي, endotracheal tube; Blade WHEEL PRESSER WAISTLINE JOINER OVERLOCK WHEEL PRESSER CR NA Type: Gonzalez; Blade Size: 2; [...] benefits and alternatives discussed with: patient or textiles sales representative. History & Physical Review History [...] 2:41 PM CDT 30 mg PRN, moderate pain (4-6), Starting on Tue04/02/14 at 1441, Anesthesia Intra-op [...] Intra-op documented in this encounter Care Teams Plumbing Hardware Assembler Relationship Specialty Start Date End Date Teresa Vaughan PCP - General Family Practice 05/29/13 05/30/[address] [address] documented as of this encounter
--- OUTSIDE RECORDS SUMMARY | 2022-06-18 09:33 | XMS_ITS | Encounter Summary ---
:1975 Author Organization [place] Address [address] [place] [address] Care Team Providers Name Role Phone Teresa Vaughan Primary Care Provider Reason for Visit Auth/Cert - Closed Specialty Diagnoses / Procedures Referred By Contact Refer red To Contact Surgery Diagnoses Strabismus Ur Periop Procedures RECESSION RESECTION (REPAIR STRABISMUS) BILATERAL 2450 [place] [address] Phone: Fax: Referral ID Status Reason Start Date Expiration Date Visits Requ ested Visits Authorized [id number] Closed 1 1 Encounter Details Date Type Department Care Team Description 08/13/2014 Hospital Encounter UR PACU [place], [place] Sixth nerve palsy of 2450 Lyla Ashford MD both eyes (Primary S [facility] Dx) [place], [place] [address] [address] [place], [place] [phone] Social History Tobacco Use Types Packs/Day Years [...] Comments Blood Pressure 116/82 08/13/2014 11:16 AM MANIFOLD BUILDER Pulse - - Temperature 36.9 ??C (98.5 ??F) 08/13/2014 11:16 AM MANIFOLD BUILDER Respiratory Rate 9 08/13/2014 11:16 AM MANIFOLD BUILDER Oxygen Saturation 95% 08/13/2014 11:16 AM MANIFOLD BUILDER Inhaled Oxygen Concentration - - Weight 66.8 kg (147 lb 4.3 oz) 08/13/2014 6:34 AM MANIFOLD BUILDER Height 157.5 cm (5' 2) 08/13/2014 6:34 AM MANIFOLD BUILDER Body Mass Index 26.94 08/13/2014 6:34 AM MANIFOLD BUILDER documented in this encounter Discharge Instructions Discharge [...] pleasecall Binh Patrick at or our front facer at and arrange to follow-up in 1 week. Please call [phone] For postop eye concerns including discharge, eye [...] To contact a doctor, call or: ??? [phone] and ask for the Resident Major Account Representative for: (answered 24 hours a day) ??? Emergency Department: [place] [facility] Department: [phone] [place] [facility] Department: [phone] [facility] Department: [phone] Rev. 05/2014 FOLD BUILDER documented in this encounter Medications at Time [...] daily Multiple 0 08/04/2017 Vitamins-Minerals (MULTIVITAMIN OR) [id number]-[id number] Apply to both eyes 1 Tube 0 11/25/2014 thasone (MAXITROL) three times a day [id number] OINT for one week. ophthalmic ointmentIndications: Sixth [...] and answered all pt and family questions. FOLD BUILDER Carlos Richardson RN - 08/13/2014 11:20 AM CST Pt up to chair, requested to get fully dressed. SPO2 monitor in place, all other monitors unhooked. Pt VSS, states pain is a tolerable level. Drinking and tolerating sips of water. Cold washcloth applied to BL eyes for comfort. FOLD BUILDER Bree Andres RN - 08/13/2014 11:10 AM CST Report to Carlos Richardson RN FOLD BUILDER Debi Doan RN - 08/13/2014 6:56 AM CST Denies chance of - not sexually active and has IUD in place. FOLD BUILDER documented in this encounter Miscellaneous Notes Op [...] left superior rectus SURGEON: Montana Meyer MD MONOTYPE SETTER: None IMPLANTS: None COMPLICATIONS: None ESTIMATED BLOOD [...] for the entire procedure. Montana Meyer MD News Agent Pediatric Ophthalmology & Strabismus Department of Ophthalmology & Visual Neurosciences [facility] FOLD BUILDER documented in this encounter Plan of Treatment Not on filedocumented as of this encounter Procedures Procedure Name Priority Date/Time Associated Diagnosis Comme nts SIMPLE RECESSION OR 08/13/2014 8:16 AM MANIFOLD BUILDER Strabismus RESECTION, MUSCLE, EXTRAOCULAR, BILATERAL, FOR STRABISMUS CORRECTION documented in this encounter Visit Diagnoses Diagnosis Sixth nerve palsy of both eyes - Primary Paralytic strabismus, sixth or abducens nerve palsy documented in this encounter Administered Medications Inactive Administered Medications - up to 3 most recent administrations Medication Order MAR Action Action Date Dose Rate Site HYDROmorphone (PF) (DILAUDID) Given 08/13/2014 10:37 AM MANIFOLD BUILDER 0.3 mg injection 0.3-0.5 mg 0.3-0.5 mg, Intravenous, EVERY 10 MIN PRN, moderate to severe pain, acute pain.?May administer if RR is > 10 , Starting on 08/13/14 at 0923, If fentanyl is also ordered, use HYDROmorphone if pain control insufficient with fentanyl or a longer acting agent is needed. Max cumulative dose = 2 mg, PACU/Phase II Given 08/13/2014 10:21 AM MANIFOLD BUILDER 0.3 mg ondansetron (ZOFRAN) injection 4 mg Given 08/13/2014 10:09 AM MANIFOLD BUILDER 4 mg 4 mg, Intravenous, EVERY 30 [...] Recently Administered Medications Times are shown in MANIFOLD BUILDER. PRN Medication Order 08/11/2014 08/12/2014 08/13/2014 balanced salts (BSS) ophthalmic solution (CANCELED) 0856 (Given - Provider: Montana Meyer MD - Comment: Used as irrigation during case) PRN, Starting 08/13/14 at 0856, Intra-procedure HYDROmorphone (PF) (DILAUDID) injection 0.3-0.5 mg (CANCELED) 1021 (Given - Provider: Bree Andres RN)1037 (Given - Provider: Bree Andres RN) 0.3-0.5 mg, Intravenous, EVERY 10 MIN PA N, Starting 08/13/14 at 0923, Until 08/13/14 [...] Intra-procedure documented in this encounter Care Teams Housing Assistant Relationship Specialty Start Date End Date Teresa Vaughan PCP - General Family Practice 05/29/13 05/30/17 [place] [address] documented as of this encounter
--- OUTSIDE RECORDS SUMMARY | 2022-06-18 09:33 | XMS_ITS | Encounter Summary ---
:1975 Author Organization [place] Address [address] [place] [address]. [place] [address] Care Team Providers Name Role Phone Teresa [...] Department Care Team Description 04/18/2014 Office Visit [facility] Eye Adult Double Montana Meyer, Six th nerve palsy of both eyes (Primary Dx); Vision Left homonymous hemianopsia [address] [facility] 3rd Floor, [address] [place] [address] [phone] Social History Tobacco Use Types Packs/Day Years [...] field documented in this encounter Care Teams Front Desk Lead Relationship Specialty Start Date End Date Teresa Vaughan PCP - General Family Practice 05/29/13 05/30/17 [facility] [address] [place] [address] documented as of this encounter
--- OUTSIDE RECORDS SUMMARY | 2022-06-18 09:33 | XMS_ITS | Encounter Summary ---
:1975 Author Organization [facility] Address [address] [place] [address]. [place] [address] Care Team Providers Name Role Phone Teresa [...] MD Sixth nerve palsy of both eyes; [facility] Diplopia 3rd Floor, [address] [place] [phone] Social History Tobacco Use Types Packs/Day Years [...] PM CST Consider wearing prism in glasses. ASONOGRAPHER documented in this encounter Progress Notes Montana [...] in my HPI. Assessment & Plan Key Peers is a 39 year old female who [...] with this note. 

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
--- OUTSIDE RECORDS SUMMARY | 2022-06-18 09:33 | XMS_ITS | Encounter Summary ---
:1975 Author Organization [facility] Address [address] [place] [address] Care Team Providers Name Role Phone Teresa Vaughan Primary Care Provider [place] Meyer MD Unavailable Jeremy Gibbs MD Unavailable Jose Monahan MD Unavailable Lise Mcqueen MD Unavailable [phone] Mar Alfaro Primary Care Provider Lise Mcqueen MD Unavailable [phone] Jonh Garcia MD Unavailable Ta Lane [...] Berg, DIANE - 06/05/2013 7:30 AM CDT Senior Bookkeeper: Laurie Berg Status: Final Encounter: 2013-06-05 07:30:00.000 Type: Rooming Note Reason For Visit KEY LUCIANO is a 38 year old female being seen in clinic for evaluation of blurry vision of righteye and loss of vision of left eye, per pt. Do you have any other appointments, tests or procedures within the [facility] system for this same day? No. Pain [...] By: Laurie Berg ; 06/05/2013 10:39 AM JUMPBASTING MACHINE OPERATOR. documented in this encounter Plan of Treatment Not on filedocumented as of this encounter Visit Diagnoses Not on filedocumented in this encounter Care Teams Detention Worker Relationship Specialty Start Date End Date Teresa Vaughan PCP - General Family Practice 05/29/13 05/30/17 [facility] [address] [place] [address] Mar Alfaro PCP - General 05/31/17 [facility] [address] [place] [address] Montana Meyer MD MD Ophthalmology 12/10/14 05/30/17 [facility] [address] [place] [address] Jeremy Gibbs MD MD Ophthalmology 12/10/14 Jose Monahan MD MD Ophthalmology 12/10/14 Lise Mcqueen MD Ophthalmology 05/31/17 [address] [facility] [address] [place] [address] Lise Mcqueen, Assigned Surgical Provider 10/11/20 [address] [facility] [address] [place] [address] Jonh Garcia MD Assigned Surgical Provider 10/12/[address] [place] [id number], ILDA Assigned Surgical Provider 01/02/[address] [place] [address] documented as of this encounter
--- OUTSIDE RECORDS SUMMARY | 2022-06-18 09:33 | XMS_ITS | Encounter Summary ---
:1975 Author Organization [place] Address [address] [place] [address] Care Team Providers Name Role Phone Teresa Vaughan Primary Care Provider Montana Meyer MD Unavailable Jeremy Gibbs MD Unavailable Jose Monahan MD Unavailable Lise Mcqueen MD Unavailable [phone] Mar Alfaro Primary Care Provider Lise Mcqueen MD Unavailable Jonh Garcia MD Unavailable Encounter Details Date Type Department Care Team Description 07/03/2013 Records - [facility] Diagnostic Imaging [address] [place] [phone] Social History Tobacco Use Types Packs/Day Years [...] 12:00 AM Resu lts for this WITH REAL ESTATE SALES AGENT OR OT TABLET COATER procedure are in the results section. documented in this encounter Results XR Video Swallow with REAL ESTATE SALES AGENT or OT (07/03/2013 12:00 AM TABLET COATER) Anatomical Region Laterality Modality Other Specimen (Source) Anatomical Location Collection Method / Collectio n Time Received Time / Laterality Volume Narrative 07/03/2013 12:00 AM TABLET COATER See Historical Hospital Medical Record f or documentation Procedure Note Provider, Historical - 01/10/2021Formatt ing of this note might be different from the original. See Historical Hospital Medical Record f or documentation Historical Provider IMG DIAGNOSTIC IMAGING ORDER ESTHER documented in this encounter Visit Diagnoses Not on filedocumented in this encounter Care Teams In Flight Refueling Operator Relationship Specialty Start Date End Date Teresa Vaughan PCP - General Family Practice 05/29/13 05/30/17 [facility] [address] [place] [address] Mar Alfaro PCP - General 05/31/17 [facility] [address] [place] [address] [place] Meyer MD MD Ophthalmology 12/10/14 05/30/17 [facility] [address] [place] [address] Jeremy Gibbs MD MD Ophthalmology 12/10/14 Jose Monahan MD MD Ophthalmology 12/10/14 Lise Mcqueen MD Ophthalmology 05/31/17 [address] [facility] [address] [place] [phone] Lise Mcqueen, Assigned Surgical Provider 10/11/20 [address] [facility] [address] [place] [id number] Jonh Garcia MD Assigned Surgical Provider 10/12/[address] [place] [address] documented as of this encounter
--- OUTSIDE RECORDS SUMMARY | 2022-06-18 09:33 | XMS_ITS | Encounter Summary ---
:1975 Author Organization [facility] Address [address] [place] [address]. [place] [address] Care Team Providers Name Role Phone Teresa Vaughan Lyla Primary Care Provider Reason for Visit Auth/Cert - Closed Specialty Diagnoses / Procedures Referred By Contact Refer red To Contact Surgery Diagnoses Strabismus Ur Periop Procedures RECESSION RESECTION (REPAIR STRABISMUS) BILATERAL [facility] [place] [address] Phone: Fax: Referral ID Status Reason Start Date Expiration Date Visits Requ ested Visits Authorized [id number] Closed 1 1 Encounter Details Date Type Department Care Team Description 04/02/2014 Surgery [facility] Montana Meyer S trabismus Repair, Both PeriOp Services MD Eyes [address] [place] [address] 200 [facility] [phone] [place] [address] Surgery Details Date/Time Status Location OR Service [...] InstructionsNicole Jj - 04/02/2014 5:52 PM CDT [facility] Adult Discharge Orders & Instructions [...] resolve slowly over 2- 4 weeks. ??? [place]oke tinged tears ??? Swollen, painful or itchy [...] to the tearing and oinment. Please call [phone] for other concerns including sustained vision loss, [...] daily as needed for anxiety (or sleep) aykmtzyd-oznhhwvbt-yfskytk Apply to both eyes 1 Tube 1 [...] the lateral rectus SURGEON: Montana Meyer MD IMPORT/EXPORT AGENT: Sathya Wallis MD IMPLANTS: None COMPLICATIONS: None [...] for the entire procedure. Montana Meyer MD Breaker Mechanic Pediatric Ophthalmology & Strabismus Department of Ophthalmology & Visual Neurosciences [facility] Brief Op Note - Sathya Wallis MD - 04/02/2014 2:51 PM CDT [facility] Brief Operative Note Pre-operative diagnosis: Strabismus [...] athologist Signature HCG Qual Urine Negative NEG [facility] Specimen Anatomical Collection Method Collection Time Receive d Time (Source) Location / / Volume Laterality Urine specimen URINE SPECIMEN / 04/02/2014 10:51 04/02 (specimen) Unknown AM CDT 10:56 AM CDT Abby Maldonado MD LAB - URINE ORDERABLES Performing Organization Address City/State/ZIP Code Phon e Number [facility] [address] [place] [address] [facility] documented in this encounter Visit Diagnoses [...] (CANCELED) 1355 (Given - Provider: Maggie Page RN)5471 (Given - Provider: Montana Meyer MD - Comment: subconjuntival flush) PRN, irritation, Starting Tu04/02/14 at 1355, Intra-procedure documented in this encounter Care Teams Small Electric Engine Technician Relationship Specialty Start Date End Date Teresa Vaughan PCP - General Family Practice 05/29/13 05/30/17 [facility] [address] [place] [address] documented as of this encounter
--- OUTSIDE RECORDS SUMMARY | 2022-06-18 09:33 | XMS_ITS | Encounter Summary ---
:1975 Author Organization [place] Address [address] [place] [address] Care Team Providers Name Role Phone Teresa Vaughan Primary Care Provider Reason for Referral Occupational Therapy - Closed Specialty Diagnoses / Procedures Referred By Contact Refer red To Contact Diagnoses Vision loss Jeremy Gibbs MD [address] [place] [phone] Referral ID Status Reason Start Date Expiration Date Visits Requ ested Visits Authorized [id number] Closed 11/14/2013 05/13/2014 1 1 Encounter Details Date Type Department Care Team Description 11/14/2013 Orders Only Eye Clinic Jeremy Gibbs MD Vision loss (Primary Robb [address] Dx) Building [place], [place] 9th Floor, Clinic [id number] [place] [address] [place] [address] [place] [address] Social History Tobacco Use Types [...] loss documented in this encounter Care Teams Insolvency Consultant Relationship Specialty Start Date End Date Teresa Vaughan PCP - General Family Practice 05/29/13 05/30/17 [facility] [address] [place] [address] documented as of this encounter
--- OUTSIDE RECORDS SUMMARY | 2022-06-18 09:33 | XMS_ITS | Encounter Summary ---
:1975 Author Organization [place] Address [address] [place] [address]. [place] [address] Care Team Providers Name Role Phone Teresa Vaughan Primary Care Provider Encounter Details Date Type Department Care Team Description 09/17/2013 Orders Only Eye Clinic Jeremy Gibbs MD Subjective visual Robb Wangensteen [address] disturbance (Primary Building [place], [place] Dx) 9th Floor, Clinic [address] [place] [address] [place] [address] [place] [address] Social History Tobacco Use Types Packs/Day Years [...] ed documented in this encounter Care Teams Ship Washer Relationship Specialty Start Date End Date Teresa Vaughan PCP - General Family Practice 05/29/13 05/30/17 [facility] [address] [place] [address] documented as of this encounter
--- OUTSIDE RECORDS SUMMARY | 2022-06-18 09:33 | XMS_ITS | Encounter Summary ---
:1975 Author Organization [place] Address [address] [place] [address]. [place] [address] Care Team Providers Name Role Phone Teresa Vaughan Primary Care Provider Reason for Visit Reason Comments Diplopia Evaluation see Dr. Gibbs's note from rosalina españa for specific exam elements. Encounter Details Date Type Department Care Team Description 01/17/2014 Documentation Only [place] Sandovalo maxx Evaluation [facility] MD Lyla (see Dr. Gibbs's note Clinic [facility]... [address] 3rd Floor, [address] [place] [address] [place] [address] [place], [place] [phone] [address] (Work) [phone] Social History Tobacco Use Types Packs/Day Years [...] Primary documented in this encounter Care Teams Milling Supervisor Relationship Specialty Start Date End Date Teresa Vaughan PCP - General Family Practice 05/29/13 05/30/[address] [address] documented as of this encounter
--- OUTSIDE RECORDS SUMMARY | 2022-06-18 09:33 | XMS_ITS | Encounter Summary ---
:1975 Author Organization [place] Address [address] [place] [address] Care Team Providers Name Role Phone Clement Teresa D Primary Care Provider Montana Meyer MD Unavailable Jeremy Gibbs MD Unavailable Jose Monahan MD Unavailable Lise Mcqueen MD Unavailable [phone] Mar Alfaro Primary Care Provider Lise Mcqueen MD Unavailable [phone] Jonh Garcia MD Unavailable Ta Lane OD Unavailable Encounter Details Date Type Department Care Team Description 06/05/2013 Office Visit-[facility] Jereym Gibbs MD [address] [place] [address] (Wo rk) Social History Tobacco Use Types Packs/Day Years Used Date Smoking Tobacco: Every Day Cigarettes 0.3 2 Alcohol Use Standard Drinks/Week Comments Yes 0 (1 standard drink = 0.6 oz pure alcoho l) occasional Sex Assigned at Date Recorded Not on file documented as of this encounter Progress Notes Jeremy Gibbs MD - 06/05/2013 7:30 AM CDT Analytical Statistician: Jeremy Gibbs Status: Final - Signature Encounter: 2013-06-05 07:30:00.000 Type: EYE Letter June 05, 2013 MD [facility], [place] [address] [place] [address] RE: Key Peres : 1975 DOS: 06/05/2013 [...] drive a car in the state of [place]. Shaheedwill try sector prisms to see if we can expand her visual field. She has refractive error and I gaveher a prescription for glasses. I would like to thank you again for allowing me to share in her care. Sincerely, Jeremy Gibbs M.D. Professor Neuro-ophthalmology Service MSL:cy Electronically signed by:Jeremy Gibbs M.D. Jun 06 2013 8:01AM DIRECTOR BANKING documented in this encounter Plan of Treatment Not on filedocumented as of this encounter Visit Diagnoses Not on filedocumented in this encounter Care Teams Shoe Handler Relationship Specialty Start Date End Date Teresa Vaughan PCP - General Family Practice 05/29/13 05/30/17 [facility] [address] [place] [address] Mar Alfaro PCP - General 05/31/17 [facility] [address] [place] [address] Montana Meyer MD MD Ophthalmology 12/10/14 05/30/17 [facility] [address] [place] [address] Jeermy Gibbs MD MD Ophthalmology 12/10/14 Jose Monahan MD MD Ophthalmology 12/10/14 Lise Mcqueen MD Ophthalmology 05/31/[address] [place] [address] Lise Mcqueen, Assigned Surgical Provider 10/11/[address] [place] [address] Jonh Garcia MD Assigned Surgical Provider 10/12/[address] [place] [address] Assigned Surgical Provider 01/02/[address] [place] [address] documented as of this encounter
--- OUTSIDE RECORDS SUMMARY | 2022-06-18 09:33 | XMS_ITS | Encounter Summary ---
:1975 Author Organization [place] Address [address] [place] [address]. [place] [address] Care Team Providers Name Role Phone Teresa [...] Department Care Team Description 11/11/2014 Office Visit [facility] Eye Adult Double Montana Meyer, Alt ernating esotropia (Primary Dx); Vision MD Sixth nerve palsy of both eyes; [address] [facility] Left homonymous hemianopsia 3rd Floor, [address] [place] [address] [phone] Social History Tobacco Use Types Packs/Day Years Used Date Smoking Tobacco: Every Day Cigarettes 0.3 2 Smokeless Tobacco: Never Alcohol Use Standard Drinks/Week Comments Yes 0 (1 standard drink = 0.6 oz pure alcoho l) occasional Sex Assigned at Date Recorded Not on file documented as of this encounter Patient Instructions Patient InstructionsBoMontaan grande MD - 11/11/2014 2:58 PM CDT [...] field documented in this encounter Care Teams Infrastructure Software Engineer Relationship Specialty Start Date End Date Teresa Vaughan PCP - General Family Practice 05/29/13 05/30/17 [facility] [address] [place] [address] documented as of this encounter
--- OUTSIDE RECORDS SUMMARY | 2022-06-18 09:33 | XMS_ITS | Encounter Summary ---
:1975 Author Organization [place] Address [address] [place] [address]. [place] [address] Care Team Providers Name Role Phone Teresa Vaughan Primary Care Provider Encounter Details Date Type Department Care Team Description 01/17/2014 Hospital Encounter [facility] Rebecca Thompson, OT Rehabilitation HELDER ALBARRAN [place] [id number] 9th Floor Clinic [address] [place] [phone] Social History Tobacco Use Types Packs/Day Years [...] daily as needed for anxiety (or sleep) ngdfhmws-akhlciakj-hzaldpd Apply to both eyes 1 Tube 1 [...] [place] KEY LUCI[place]O [id number] [address] [address] Beginning/End Dates of Reporting Period: 01/17/2014 to [...] home tomorrow, with support of [employer] and [employer] workers Rebecca Thompson OT - 01/17/2014 5:47 PM CDT OUTPATIENT OCCUPATIONAL THERAPY VISION EVALUATION Patient: Key Luciano : 1975 Visit Type Type of Visit: Re-Evaluation Car Runner Car Runner Present: No General Information Start Of Care [...] prior to onset Others 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: marine fuel dock attendant/caregiver (Ching) Patient/family Goals Statement: managing diplopia in sunlight, understanding if prism would help her Social History/Home Environment Living Environment: [place] Current Community Support: (discharge to home tomorrow - [employer] and [employer] workers) Patient Role/employment History??: Disabled Avocational: camping, [...] patient response triggers next stimulus Norm: Safe Transportation Dispatcher recommended score 52+ Patient Score (Mode A, [...] on filedocumented in this encounter Care Teams Wastewater Manager Relationship Specialty Start Date End Date Teresa Vaughan PCP - General Family Practice 05/29/13 05/30/[address] [address] documented as of this encounter
--- OUTSIDE RECORDS SUMMARY | 2022-06-18 09:33 | XMS_ITS | Encounter Summary ---
:1975 Author Organization [place] Address [address] [place] [address] Care Team Providers Name Role Phone Teresa Vaughan Lyla Primary Care Provider Reason for Visit Auth/Cert - Closed Specialty Diagnoses / Procedures Referred By Contact Refer red To Contact Surgery Diagnoses Strabismus Ur Periop Procedures RECESSION RESECTION (REPAIR STRABISMUS) BILATERAL [address] [place] [address] Phone: Fax: Referral ID Status Reason Start Date Expiration Date Visits Requ ested Visits Authorized [id number] Closed 1 1 Encounter Details Date Type Department Care Team Description 11/26/2014 Hospital Encounter UR PACU Ricardo Meyerick Postoperative eye [address] Christopher Arita MD [facility] (Primary Dx) [place], [place] [address] [address] [place], [place] [phone] Social History Tobacco Use Types Packs/Day Years [...] pleasecall Binh Patrick at or our front sight attacher at and arrange to follow-up. Please call [phone] For postop eye concerns including discharge, eye movement abnormality, or eyelid swelling and redness. Please consider taking a photo of the patient's eye appearance and offer to text the photo into the call service for review. If eKy Peres experiences systemic symptoms including fever, decreased [...] To contact a doctor, call or: ??? [phone] and ask for the Resident Coring Machine Operator for: (answered 24 hours a day) ??? Emergency Department: [place] [facility]: [phone] [place] [facility]: [phone] [facility] ER Children[facility] Emergency Department: [phone] Rev. 05/2014 Dr John Meyer, Dr. Dr. [...] resolve slowly over 2- 4 weeks. ??? [place] tinged tears ??? Swollen, painful or itchy [...] daily as needed for anxiety (or sleep) blrswado-bfbozkvbp-nzwwyct Place 1 drop into 1 mL 0 12/01/2014 hasone (MAXITROL) the right eye 4 3.5-49898-5.1 times daily for 5 SUSPIndications: days Postoperative [...] recession 4.0 mm SURGEON: Montana Meyer MD SUPERVISOR MALT HOUSE: Chanel Grant MD IMPLANTS: None COMPLICATIONS: None [...] Grant MD - 11/26/2014 11:43 AM CDT [facility] Brief Operative Note Pre-operative diagnosis: Strabismus [...] Intra-procedure documented in this encounter Care Teams Gynecologist Relationship Specialty Start Date End Date Teresa Vaughan PCP - General Family Practice 05/29/13 05/30/17 [facility] [address] [place] [address] documented as of this encounter
--- OUTSIDE RECORDS SUMMARY | 2022-06-18 09:34 | XMS_ITS | Encounter Summary ---
:1975 Author Organization [place] Address [address] [place] [address] Care Team Providers Name Role Phone Unavailable Primary Care Provider Unavailable Reason for Visit Reason Comments Vaginal Problem Encounter Details Date Type Department Care Team Description 01/23/2003 Office Visit JacksonKerry Mcfarland, VAGINI TIS NOS (Primary Dx); Physicians [facility] [address] , [address] [facility] [address] [place] [address] [phone] Social History Tobacco Use Types Packs/Day Years [...] patient's allergies indicates: No Known Aller* Toba tax accountant Use: Not Asked Alcohol Use: Not Asked [...] 01/23/2003 4:09 pm Patient is new to [facility]. She thinks that she may have a [...] A WET PREP (01/23/2003 4:34 PM CDT) [facility] Method Time Signature Trichomonas neg [facility] INTERNAL [...]
--- OUTSIDE RECORDS SUMMARY | 2022-06-18 09:34 | XMS_ITS | Encounter Summary ---
:1975 Author Organization [place] Address [address] [place] [address] Care Team Providers Name Role Phone Unavailable Primary Care Provider Unavailable Reason for Visit Reason Onset Date Comments Other 02/13/2004 Patient is dismissed from clinic as of 03-04-04. Encounter Details Date Type Department Care Team Description 02/13/2004 Telephone [facility] None, Bfp Other (Veda vallesnt is dismissed Physicians from clinic as of 03-04-04. [address] [place] [address] ) [address] [place] [address] Social History Tobacco Use Types Packs/Day Years Used Date Smoking Tobacco: Every Day Cigarettes 0.3 2 Alcohol Use Standard Drinks/Week Comments Yes 0 (1 standard drink = 0.6 oz pure alcoho l) occasional Sex Assigned at Date Recorded Not on file documented as of this encounter Miscellaneous Notes Telephone Encounter - 02/13/2004 1:02 PM CDT >> JOHN KYLE [facility] Feb 20, 2004 1:32 PM >> CALL RECEIVED. Contact: done >> UMA HANLEY [facility] Feb 13, 2004 1:03 PM No appts, referrals or Rx refills after 03-04-04. Please remove patient from health maintenance as well as cancel any standing orders in [facility]. 30 day letter was returned Unclaimed. If patient callsto make appt, we will rescind the dismissal due to the fact that the certified letter was nev er received. documented in this encounter Plan of Treatment Not on filedocumented as of this encounter Visit Diagnoses Not on filedocumented in this encounter
--- OUTSIDE RECORDS SUMMARY | 2022-06-18 09:34 | XMS_ITS | Encounter Summary ---
:1975 Author Organization [place] Address [address] [place] [address] Care Team Providers Name Role Phone RochellelauroTeresa martinez Primary Care Provider Montana Meyer MD Unavailable Jeremy Gibbs MD Unavailable Jose Monahan MD Unavailable Lise Mcqueen MD Unavailable [phone] Mar Alfaro Primary Care Provider Lise Mcqueen MD Unavailable [phone] Jonh Garcia MD Unavailable Encounter Details Date Type Department Care Team Description 03/15/2013 Records - [address] Provider, [address] [address] Social History Tobacco Use Types Packs/Day Years [...] on filedocumented in this encounter Care Teams Certified Low Vision Therapist Relationship Specialty Start Date End Date Teresa Vaughan PCP - General Family Practice 05/29/13 05/30/17 [facility] [address] [place] [address] Mar Alfaro PCP - General 05/31/17 [facility] [address] [place] [address] Montana Meyer MD MD Ophthalmology 12/10/14 05/30/17 [facility] [address] [place] [address] Jeremy Gibbs MD MD Ophthalmology 12/10/14 Jose Monahan MD MD Ophthalmology 12/10/14 Lise Mcqueen MD Ophthalmology 05/31/[address] [facility] [address] [place] [address] Lise Mcqueen, Assigned Surgical Provider 10/11/[address] [facility] [address] [place] [address] Jonh Garcia MD Assigned Surgical Provider 10/12/20 [address] [place], [place] [address] documented as of this encounter
--- OUTSIDE RECORDS SUMMARY | 2022-06-18 09:34 | XMS_ITS | Encounter Summary ---
:1975 Author Organization [place] Address [address] [place] [address] Care Team Providers Name Role Phone Teresa Vaughan Primary Care Provider Montana Meyer MD Unavailable Jeremy Gibbs MD Unavailable Jose Monaahn MD Unavailable Lise Mcqueen MD Unavailable [phone] Mar Alfaro Primary Care Provider Lise Mcqueen MD Unavailable [phone] Jonh Garcia MD Unavailable Encounter Details Date Type Department Care Team Description 04/07/2013 Records - [address] [address] Social History Tobacco Use Types Packs/Day Years [...] on filedocumented in this encounter Care Teams Technical Services Manager Relationship Specialty Start Date End Date Teresa Vaughan PCP - General Family Practice 05/29/13 05/30/17 [facility] [address] [place] [address] Mar Alfaro PCP - General 05/31/17 [facility] [address] [place] [address] Montana Meyer MD MD Ophthalmology 12/10/14 05/30/17 [facility] [address] [place] [address] Jeremy Gibbs MD MD Ophthalmology 12/10/14 Jose Monahan MD MD Ophthalmology 12/10/14 Lise Mcqueen MD Ophthalmology 05/31/[address] [place] [address] Lise Mcqueen, Assigned Surgical Provider 10/11/20 [address] [facility] [address] [place] [phone] Jonh Garcia MD Assigned Surgical Provider 10/12/20 9 [place] [address] documented as of this encounter
--- OUTSIDE RECORDS SUMMARY | 2022-06-18 09:36 | XMS_ITS | Encounter Summary ---
:1975 Author Organization [facility] Address [address] [place] [address] Care Team Providers Name Role Phone No Primary/Referring, Phy Primary Care Provider Unavailable Encounter Details Date Type Department Care Team Description 09/13/2021 Orders Only [facility] NE8 Brandon Murphy MD [address] [facility] [address] [place] [address] [place] [address] [phone] (Wo rk) Social History Tobacco Use Types [...] on filedocumented in this encounter Care Teams Prototype Machine Operator Relationship Specialty Start Date End Date No Primary/Referring, Phy PCP - General 08/31/21 documented as of this encounter
--- OUTSIDE RECORDS SUMMARY | 2022-06-18 09:36 | XMS_ITS | Clinical Summary ---
:1975 Author Organization [facility] [place] [address] Care Team Providers Name Role Phone Mar Alfaro DO Primary Care Provider Rebecca Cardenas DEPUTY COMMISSIONER Unavailable Allergies No known active allergies Medications [...] mild (HC) medication order prevagen 0 06/02/2022 [facility], or Ordered Dose Route Frequency Start [...] 10/27/2017 Overview: 06/26/17 signed MIGDALIA Lopez C, DEPUTY COMMISSIONER / psychiatry Panic disorder without agoraphobia 05/02/2017 [...] contusion, C5 fracture, T4 fracture. Recovery at [facility]. Cervical high risk HPV (human papillomavirus) test [...] DO 06/02/2022 Travel 05/05/2022 Telemedicine Rebecca Cardenas, DEPUTY COMMISSIONER Medica tion Management; [place]health ([place]) 05/05/2022 Travel 05/05/2022 Refill Rebecca Cardenas, DEPUTY COMMISSIONER Refill Request (Duloxetine) 05/04/2022 Telephone Mar Alfaro, [...] gain?) 03/31/2022 Travel 03/31/2022 Telephone Kortney Reyesy CRISIS MANAGER 03/30/2022 Telemedicine Rebecca Cardenas, BAYLEE Medica tion Management; Telehealth ([place]) 03/30/2022 Telephone Rebecca Cardenas, DEPUTY COMMISSIONER Appoin tment (Virtual ) from Last 3 Months Immunizations Name Administration Dates Next Due COVID-19 vaccine ([employer] 04/29/2022 30mcg/0.3mL) 12YO+ BIVALENT BOOSTER PF, MDV COVID-19 vaccine ([employer] 10/07/2021 30mcg/0.3mL) 12YO+ MAYANK-SUCROSE PF, MDV Hepatitis [...] No / Unsu re 06/14/2022 2:21 PM MANUFACTURING PRODUCTION MANAGER someone who was confirmed or suspected [...] Comments Blood Pressure 153/90 06/14/2022 2:32 PM MANUFACTURING PRODUCTION MANAGER Pulse 112 06/14/2022 2:32 PM MANUFACTURING PRODUCTION MANAGER Temperature 36.7 ??C (98.1 ??F) 06/14/2021 10:22 AM MANUFACTURING PRODUCTION MANAGER Respiratory Rate 16 06/14/2021 10:22 AM MANUFACTURING PRODUCTION MANAGER Oxygen Saturation 92% 06/14/2022 2:32 PM MANUFACTURING PRODUCTION MANAGER Inhaled Oxygen Concentration - - Weight 95.3 kg (210 lb) 06/14/2022 2:32 PM MANUFACTURING PRODUCTION MANAGER Height 154 cm (5' 0.63) 11/19/2021 2:02 PM CDT Body Mass Index 40.16 11/19/2021 2:02 PM CDT Plan of Treatment Upcoming Encounters Date Type Specialty Care Team Description 06/21/2022 Telemedicine Rebecca Cardenas , DEPUTY COMMISSIONER [address] [facility] [address] [place], [place] [address] (Wo rk) 06/22/2022 Office Visit Faizan Aguillon MD [address] [address] (Wo rk) 07/12/2022 Office Visit Mar Alfaro DO [address] [address] (Wo rk) 07/26/2022 Telemedicine CardenasRebecca james , DEPUTY COMMISSIONER [address] [place], [place] [address] (Wo rk) 08/11/2022 Office Visit Mar Alfaro, DO [address] [place], [place] [address] (Wo rk) Health Maintenance [...] 06/15/2022 12:00 Results for this CORRESP-LABORATORY AM MANUFACTURING PRODUCTION MANAGER procedure are in RESULTS the results section. SCAN CORRESP-IMAGING 06/15/2022 12:00 Res ults for this AM MANUFACTURING PRODUCTION MANAGER procedure are i n the results section. SCAN 06/14/2022 12:00 Results for this CORRESP-LABORATORY AM MANUFACTURING PRODUCTION MANAGER procedure are in RESULTS the results section. SCAN 06/14/2022 12:00 Results for this CORRESP-LABORATORY AM MANUFACTURING PRODUCTION MANAGER procedure are in RESULTS the results section. SCAN CORRESP-IMAGING 06/14/2022 12:00 Res ults for this AM MANUFACTURING PRODUCTION MANAGER procedure are i n the results section. SCAN CORRESP-IMAGING 06/14/2022 12:00 Res ults for this AM MANUFACTURING PRODUCTION MANAGER procedure are i n the results section. [...] Results SCAN CORRESP-LABORATORY RESULTS (06/15/2022 12:00 AM MANUFACTURING PRODUCTION MANAGER)Only the most recent of 3 resultswithin the time period is included. Narrative 06/15/2022 12:00 AM MANUFACTURING PRODUCTION MANAGER This result has an attachment that is no t available. Ordered by an unspecified provider. Other Clinical Staff OTHER SCAN CORRESP-IMAGING (06/15/2022 12:00 AM MANUFACTURING PRODUCTION MANAGER)Only the most recent of3 results within the time period is included. Narrative 06/15/2022 12:00 AM MANUFACTURING PRODUCTION MANAGER This result has an attachment that is no t available. Ordered by an unspecified provider. Other Clinical Staff OTHER SCAN-CT INTERPRETATION (06/13/2022 12:00 AM CDT) Narrative This result has an attachment that is no t available. Scanner OTHER URINALYSIS MICROSCOPIC (04/29/2022 1:01 PM CDT) athologist Signature RBC 0-2 0-2, None 04/29/2022 [facility] Seen /HPF 1:22 PM CDT [facility] WBC 3-5 0-2, 3-5, 04/29/2022 [facility] None Seen 1:22 PM CDT [facility] /[facility] CLINIC BACTERIA Few None Seen, 04/29/2022 [facility] Rare, Few 1:22 PM CDT [facility] Bacteria/H CLINIC PF EPITHELIAL Few None Seen, 04/29/2022 [facility] CELLS Few 1:22 PM CDT [facility] Epi/HPF CLINIC Specimen Anatomical Collection Method Collection Time Receive d Time (Source) Location / / Volume Laterality Urine URINE SPECIMEN / Non-Blood / 04/29/2022 1:01 PM 04/29 1:01 Unknown Unknown CDT PM CDT Mar Alfaro DO URINE Performing Organization Address City/State/ZIP Code Phon e Number [facility] [address] [place] [address] (ABNORMAL) UA W/ SEDIMENT EXAM REFLEXED PER CRITERIA (04/29/2022 1:01 PM CDT) Patholo gist Method Time Signature COLOR Yellow Yellow Color 04/29/2022 [facility] 1:22 PM CDT [facility] CLARITY Clear Clear 04/29/2022 [facility] Clarity 1:22 PM CDT [facility] SPECIFIC 1.015 1.010, 04/29/2022 [facility] GRAVITY,URINE 1.015, 1:22 PM CDT [facility] 1.020, 1.025 [facility] PH,URINE 7.0 6.0, 7.0, 04/29/2022 [facility] 8.0, 5.5, 1:22 PM CDT [facility] 6.5, 7.5, CLINIC 8.5 UROBILINOGEN, Normal Normal EU/dl 04/29/2022 [facility] H QUALITATIVE 1:22 PM CDT [facility] PROTEIN, Negative Negative 04/29/2022 [facility] URINE mg/dL 1:22 PM T [facility] GLUCOSE, Negative Negative 04/29/2022 [facility] URINE mg/dL 1:22 PM T [facility] KETONES,URINE Negative Negative 04/29/2022 [facility] mg/dL 1:22 PM T [facility] BILIRUBIN,URI Negative Negative 04/29/2022 [facility] NE 1:22 PM T [facility] OCCULT Negative Negative 04/29/2022 [facility] BLOOD,URINE 1:22 PM T [facility] NITRITE Negative Negative 04/29/2022 [facility] 1:22 PM T [facility] LEUKOCYTE Trace (A) Negative 04/29/2022 [facility] ESTERASE 1:22 PM T [facility] Specimen Anatomical Collection Method Collection Time Receive d Time (Source) Location / / Volume Laterality Urine URINE SPECIMEN / Non-Blood / 04/29/2022 1:01 PM 04/29 1:01 Unknown Unknown CDT PM CDT Mar Alfaro DO URINE Performing Organization Address City/State/ZIP Code Phon e Number [facility] [address] [place] [address] POTASSIUM (04/29/2022 12:55 PM CDT) athologist Signature POTASSIUM 3.7 3.5 - 5.0 04/30/2022 [facility] mmol/L 2:34 PM CDT LABORATORY-CENTR AL LABORATORY Specimen Anatomical Collection Method / Collection Time Recei sue Time (Source) Location / Volume Laterality Blood BLOOD SPECIMEN / Venipuncture / 04/29/2022 12:55 04/29 Unknown Unknown PM CDT 12:59 PM CDT Mar Alfaro DO CHEMISTRY Performing Organization Address City/[facility] Phon e Number [facility] [address] [place] [address] LABORATORY-CENTRAL [address] LABORATORY FSH (04/29/2022 12:55 PM CDT) P athologist Signature FSH 45.0 mIU/mL 04/30/2022 [facility] 3:27 PM CDT LABORATORY-CENTR AL LABORATORY Specimen Anatomical Collection Method / Collection Time Recei sue Time (Source) Location / Volume Laterality Blood BLOOD SPECIMEN / Venipuncture / 04/29/2022 12:55 04/29 Unknown Unknown PM CDT 12:59 PM CDT Narrative [facility] LABORATORY-CENTRAL LABORAT ORY - 04/30/2022 3:27 PM CDT ? Female: ??Follicular ? (3.0-8.1) ?Ovulatory Peak ? (2.6-16.7) ?Luteal ? (1.4-5.5) ?Post Menopausal ?(26.7-133.4) ? Male: ? (1.0-12.0) Mar Alfaro DO CHEMISTRY Performing Organization Address City/[facility] Code Phon e Number [facility] [address] [place] [address] LABORATORY-CENTRAL 2000 LABORATORY QFT MITOGEN PERFORMABLE (04/08/2022 12:00 PM CDT) P athologist Signature MITOGEN 10.00 IU/mL 04/10/2022 [facility] 1:01 PM CDT LABORATORY-CENTR AL LABORATORY Specimen Anatomical Collection Method Collection Time Receive d Time (Source) Location / / Volume Laterality Blood BLOOD SPECIMEN / Client Collect / 04/08/2022 12:00 08/2021 Unknown Unknown PM CDT 10:12 PM CDT Doctor Unknown CHEMISTRY Performing Organization Address City/State/ZIP Code Phon e Number [facility] [address] [place] [address] LABORATORY-CENTRAL 2000 LABORATORY QFT TB2 PERFORMABLE (04/08/2022 12:00 PM CDT) P athologist Signature TB2 0.04 IU/mL 04/10/2022 [facility] 1:01 PM CDT LABORATORY-CENTR AL LABORATORY Specimen Anatomical Collection Method Collection Time Receive d Time (Source) Location / / Volume Laterality Blood BLOOD SPECIMEN / Client Collect / 04/08/2022 12:00 08/2021 Unknown Unknown PM CDT 10:12 PM CDT Doctor Unknown CHEMISTRY Performing Organization Address City/[facility]/ZIP Code Phon e Number [facility] [address] [place] [address] LABORATORY-CENTRAL 2000 LABORATORY QFT TB1 PERFORMABLE (04/08/2022 12:00 PM CDT) P athologist Signature TB1 0.01 IU/mL 04/10/2022 [facility] 1:01 PM CDT LABORATORY-CENTR AL LABORATORY Specimen Anatomical Collection Method Collection Time Receive d Time (Source) Location / / Volume Laterality Blood BLOOD SPECIMEN / Client Collect / 04/08/2022 12:00 08/2021 Unknown Unknown PM CDT 10:12 PM CDT Doctor Unknown CHEMISTRY Performing Organization Address City/[facility]/ZIP Code Phon e Number [facility] [address] [place] [address] LABORATORY-CENTRAL 2000 LABORATORY QUANTIFERON TB GOLD PLUS (04/08/2022 12:00 PM CDT) [facility] gist Method Time Signature QFTP NIL 0.06 04/10/2022 [facility] 1:32 PM CDT LABORATORY-CE NTRAL LABORATORY TB1 0.01 IU/mL 04/10/2022 [facility] 1:32 PM CDT LABORATORY-CE NTRAL LABORATORY TB2 0.04 IU/mL 04/10/2022 [facility] 1:32 PM CDT LABORATORY-CE NTRAL LABORATORY MITOGEN 10.00 IU/mL 04/10/2022 [facility] 1:32 PM CDT LABORATORY-CE NTRAL LABORATORY QFTP TB AG1 - NIL <0.00 04/10/2022 [facility] 1:32 PM CDT LABORATORY-CE NTRAL LABORATORY QFTP TB AG2 - NIL <0.00 04/10/2022 [facility] 1:32 PM CDT LABORATORY-CE NTRAL LABORATORY QFTP MITOGEN - NIL 9.94 04/10/2022 [facility] 1:32 PM CDT LABORATORY-CE NTRAL LABORATORY QFTP QUANTIFERON Negative Negative 04/10/2022 [facility] H INTERPRETATION 1:32 PM CDT LABORATORY-CE NTRAL LABORATORY Specimen Anatomical Collection Method Collection Time Receive d Time (Source) Location / / Volume Laterality Blood BLOOD SPECIMEN / Client Collect / 04/08/2022 12:00 08/2021 Unknown Unknown PM CDT 10:12 PM CDT Narrative [facility] LABORATORY-CENTRAL LABORAT ORY - 04/10/2022 1:32 PM [...] Organization Address City/State/ZIP Code Phon e Number [facility] [address] [place] [address] LABORATORY-CENTRAL 2000 LABORATORY TSH WITH REFLEX (03/31/2022 2:45 PM CDT) athologist Signature TSH 0.58 0.35 - 4.94 04/01/2022 [facility] uIU/mL 11:10 AM CDT LABORATORY-CENTR AL LABORATORY Specimen Anatomical Collection Method / Collection Time Recei sue Time (Source) Location / Volume Laterality Blood BLOOD SPECIMEN / Venipuncture / 03/31/2022 2:45 2021 2:45 Unknown Unknown PM CDT PM CDT Narrative [facility] LABORATORY-CENTRAL LABORAT ORY - 04/01/2022 11:10 AM [...] Organization Address City/State/ZIP Code Phon e Number [facility] [address] [place] [address] LABORATORY-CENTRAL 2000 LABORATORY ANTI HCV (03/31/2022 2:45 PM CDT) [facility] gist Method Time Signature HEPATITIS C Non-Reacti Non-Reacti 04/01/2022 [facility] ANTIBODY ve ve 11:10 AM CDT LABORATORY-JUSTINA [...] DO SEND OUTS Performing Organization Address City/State/ZIP Code Phon e Number [facility] [address] [place] [address] LABORATORY-CENTRAL 2000 LABORATORY HEMOGLOBIN (03/31/2022 2:45 PM CDT) athologist Signature HEMOGLOBIN 15.8 12.0 - 16.0 03/31/2022 [facility] g/dL 2:58 PM CDT [facility] MCV 85 80 - 100 fL 03/31/2022 [facility] 2:58 PM CDT [facility] Specimen Anatomical Collection Method / Collection Time Recei sue Time (Source) Location / Volume Laterality Blood BLOOD SPECIMEN / Venipuncture / 03/31/2022 2:45 2021 2:45 Unknown Unknown PM CDT PM CDT Mar Alfaro DO HEMATOLOGY Performing Organization Address City/State/ZIP Code Phon e Number [facility] [address] [place] [address] (ABNORMAL) BASIC METABOLIC PANEL (03/31/2022 2:45 PM CDT) Analysis Performed At Patho logist Time Signature SODIUM 139 135 - 145 04/01/2022 [facility] mmol/L 11:17 AM CDT LABORATORY-[facility] TRAL LABORATORY POTASSIUM 3.3 (L) 3.5 - 5.0 04/01/2022 [facility] mmol/L 11:17 AM CDT LABORATORY-[facility] TRAL LABORATORY CHLORIDE 97 (L) 98 - 110 04/01/2022 [facility] mmol/L 11:17 AM CDT [facility] TRAL LABORATORY CO2,TOTAL 28 21 - 31 04/01/2022 [facility] mmol/L 11:17 AM CDT [facility] TRAL LABORATORY ANION GAP 14 5 - 18 04/01/2022 [facility] 11:17 AM CDT LAB[facility] TRAL LABORATORY GLUCOSE 101 (H) 65 - 100 04/01/2022 [facility] mg/dL 11:17 AM CDT LAB[facility] TRAL LABORATORY CALCIUM 10.1 8.5 - 10.5 04/01/2022 [facility] mg/dL 11:17 AM CDT [facility] TRAL LABORATORY BUN 7 (L) 8 - 25 04/01/2022 [facility] mg/dL 11:17 AM CDT [facility] TRAL LABORATORY CREATININE 0.95 0.57 - 04/01/2022 [facility] 1.11 mg/dL 11:17 AM CDT [facility] TRAL LABORATORY BUN/CREAT RATIO 7 (L) 10 - 20 04/01/2022 [facility] 11:17 AM CDT [facility] TRAL LABORATORY eGFR 75 (L) >90 04/01/2022 [facility] mL/min/1.7 11:17 AM CDT LABORATORY-[facility] 3m2 TRAL [...] Address City/State/ZIP Code Phon e Number [facility] [address] [place] [address] LABORATORY-CENTRAL 2000 LABORATORY from Last 3 Months Insurance Payer Benefit Plan / Subscriber ID Effective Dates Phone Addre ss Type Group MEDICARE PART B MEDICARE PART B [id number] 2015-Present ATTN: CLAIMS - HB USE ONLY HB ONLY [address] [place] [address] MEDICARE PART A MEDICARE PART A [id number] 2015-Present ATTN: CLAIMS - HB USE ONLY HB ONLY [address] [place] [address] MEDICARE - PB MEDICARE PB ONLY [id number] 2015-Present ATTN: CLAIMS USE ONLY [address] [place] [address] [place] [id number] 2019-Present [address] [address] [place] [address] Advance Directives Latest Code Status on File Code Status Date Activated Date Inactivated Comments Full Code 05/16/2021 10:27 AM 05/19/2021 1:48 PM Code Status Discussion: Per Existing Order Full Code 03/18/2014 3:20 PM 03/25/2014 4:35 PM Care Teams Marble Cleaner Relationship Specialty Start Date End Date Mar Alfaro DO PCP - General Family Practice 09/05/15 [address] [place] [address] Rebecca Carednas, DEPUTY COMMISSIONER Psychiatry Clinical Nurse Specialist 09/15/21 [address] [place] [address]
--- OUTSIDE RECORDS SUMMARY | 2022-06-18 09:36 | XMS_ITS | Clinical Summary ---
:1975 Author Organization [facility] Address [address] [place] [address] Care Team Providers Name Role Phone Mar [...] for each transition of care or referral. [facility] Allergies No known active allergies Medications Medication [...] contusion, C5 fracture, T4 fracture. Recovery at [facility]. T4 vertebral fracture 03/05/2013 Cervical high risk [...] 20+ yrs, 3 02/09/2005 dose series) Influenza [id number] 06/09/2009 Influenza IIV4 (Quadrivalent) 0.5mL 05/17/2021, 04/21/2020, 05/31/2014, (02349) 06/06/2012, 05/10/2011, 05/22/2009 [facility] COVID-19 Vaccine 12/10/2020 [...] Comments Blood Pressure 123/58 09/13/2021 11:00 AM NETBACKUP ENGINEER Pulse 86 09/13/2021 11:00 AM NETBACKUP ENGINEER Temperature 36.8 ??C (98.2 ??F) 09/13/2021 11:00 AM NETBACKUP ENGINEER Respiratory Rate 16 09/13/2021 11:00 AM NETBACKUP ENGINEER Oxygen Saturation 96% 09/13/2021 11:00 AM NETBACKUP ENGINEER Inhaled Oxygen Concentration - - Weight 102.2 kg (225 lb 3.2 oz) 09/08/2021 8:00 AM NETBACKUP ENGINEER Height 157.5 cm (5' 2) 09/08/2021 8:00 AM NETBACKUP ENGINEER Body Mass Index 41.19 09/08/2021 8:00 AM NETBACKUP ENGINEER Plan of Treatment Health Maintenance Due Date [...] Phone Addre ss Type Group MEDICARE MEDICARE [id number] 2015-Presen [phone] ATTN CL AIMS Medicare t 0 [address] [place] [address] BCBS BCBS PMAP BLUE [id number] 2019-Presen [address] [address] Medicaid ADVANTAGE t [place] [id number] [place] Personal/Family Self 1975 [address] (Home) [place] [id number] [place] Personal/Family Self 1975 [address] (Home) [place] [address] [place] Personal/Family Advance Directives Latest Code Status on File Code Status Date Activated Date Inactivated Comments Full Code 09/03/2021 8:48 PM 09/13/2021 4:56 PM Code Status History Code Status Date Activated Date Inactivated Comments Full Code 08/31/2021 6:12 PM 09/03/2021 8:33 PM Care Teams Network Diagnostic Support Specialist Relationship Specialty Start Date End Date Mar Alfaro DO PCP - General Family Practice 03/09/[address] [place] [address]
--- OUTSIDE RECORDS SUMMARY | 2022-06-18 09:37 | XMS_ITS | Encounter Summary ---
:1975 Author Organization [facility] Address [address] [place] [address] Care Team Providers Name Role Phone Unavailable Primary Care Provider Unavailable Encounter Details Date Type Department Care Team Description 05/25/2013 Hospital Encounter [facility] [address] [place] [facility] [address] [facility] [address] [place], [place] [address] Social History Tobacco Use Types Packs/Day Years [...] 5:34 AM Res ults for this SERUM SEAMLESS HOSIERY KNITTER procedure ar e in the results section. URINALYSIS Routine 05/26/2013 1:15 AM Results f or this CDT procedure are i n the results section. URINE CULTURE Routine 05/26/2013 1:15 AM Results for this CDT procedure are i n the results section. documented in this encounter Results HCG, Quantitative, Serum (08/07/2013 5:34 AM SEAMLESS HOSIERY KNITTER) P athologist Signature HCG For <2 0 [...] Volume Laterality 08/07/2013 5:34 AM 3 7:29 SEAMLESS HOSIERY KNITTER AM SEAMLESS HOSIERY KNITTER Daya [place] MD LAB_1 Performing Organization Address [facility] Phon e Number HP CONVERSION Urine Culture (05/26/2013 1:15 AM CDT) [facility] Method Time Signature Source Urine HP CONVERSION Site HP CONVERSION Urine Culture Mixed gram HP CONVERSION positive organisms. 10-50,000 cfu/mL Specimen (Source) Anatomical Collection Method Collection Time Re ceived Time Location / / Volume Laterality Urine: 05/26/2013 1:15 AM CDT Daya Galicia MD LAB_1 Performing Organization Address [facility] Phon e Number HP CONVERSION Urinalysis (05/26/2013 1:15 AM CDT) [place] Method Time Signature Urine Type Cln catch [...] U Specific 1.005 1.005 - HP CONVERSION [place] 1.030 Urobilinogen Negative Negative HP CONVERSION Urine [...]
--- OUTSIDE RECORDS SUMMARY | 2022-06-18 09:37 | XMS_ITS | Encounter Summary ---
:1975 Author Organization [facility] Address [address] [place] [address] Care Team Providers Name Role Phone Needs Pcp, Assignment Primary Care Provider Encounter Details Date Type Department Care Team Description 10/16/2015 Notes/Orders CODING DEPT ONLY 5050 Needs Pcp, Assignment [facility] [place] [id number] Social History Tobacco Use Types Packs/Day Years [...] on filedocumented in this encounter Care Teams Tennis Centre Manager Relationship Specialty Start Date End Date Needs Pcp, Assignment PCP - General 11/12/13 09/15/17 [facility] [place] [address] documented as of this encounter
--- OUTSIDE RECORDS SUMMARY | 2022-06-18 09:37 | XMS_ITS | Encounter Summary ---
:1975 Author Organization [email or web address] Address [address] [address] Care Team Providers Name Role Phone Needs Pcp, Assignment Primary Care Provider Reason for Visit Reason Comments Vaginal Discharge Encounter Details Date Type Department Care Team Description 11/12/2013 Hospital Encounter [facility]h Phillips (Primary Dx); Mili Levine PA-C Vaginal pruritus; [address] Bacterial v aginosis; [address] [place] [id number] [phone] Social History Tobacco Use Types Packs/Day Years [...] a yeast infection. Patient was at a nursing home because her recent traumatic brain injury. Patient [...] pink and non-enlarged. Clear vocal tone. Mouth: [place], moist buccal mucosa without lesions. Heatlhy appearing [...] Results Urine Culture (11/12/2013 10:38 AM CDT) [facility] Method Time Signature Source Urine HP CONVERSION Site clean catch HP CONVERSION Urine Culture Mixed gram HP CONVERSION positive organisms. 10-50,000 cfu/mL Specimen (Source) Anatomical Collection Method Collection Time Re ceived Time Location / / Volume Laterality Urine:clean catch 11/12/2013 10:38 AM CDT Jonh Phillips PA-C LAB_1 Performing Organization Address City/[facility]/ZIP Code Phon e Number HP CONVERSION SEXUALLY TRANSMITTED DISEASE PROBE (11/12/2013 10:38 AM CDT) Component Value Ref Test Analysis Performed At [facility] Method Time Signature Source Endocervical for [...] Jonh Phillips PA-C LAB_1 Performing Organization Address City/[facility] Code Phon e Number HP CONVERSION URINE MICROSCOPIC (11/12/2013 10:38 AM CDT) [facility] Method Time Signature Urine WBC None seen 0 - 4 HP CONVERSION Urine RBC 0-2 0 - 2 HP CONVERSION Epithelial Occasional HP CONVERSION Cells Specimen Anatomical Collection Method Collection Time Receive d Time (Source) Location / / Volume Laterality 11/12/2013 10:38 11/12/2013 AM CDT 11:13 AM CDT Narrative HP CONVERSION - 11/12/2013 11:20 AM CDT Performed at [facility], [facility] [address], [place] [address] Jonh Phillips PA-C LAB_1 Performing Organization Address [facility] Code Phon e Number HP CONVERSION URINALYSIS ROUTINE(MICRO IF POS) (11/12/2013 10:38 AM CDT) [facility] Method Time Signature Urine Type Urine:clean HP [...] U Specific <=1.005 1.005 - HP CONVERSION [place] 1.030 Urobilinogen Negative Negative HP CONVERSION Urine Specimen Anatomical Collection Method Collection Time Receive d Time (Source) Location / / Volume Laterality Urine: 11/12/2013 10:38 11/12/2013 AM CDT 11:13 AM CDT Narrative HP CONVERSION - 11/12/2013 11:15 AM CDT Performed at [facility], [address], [place] [id number] Jonh Phillips PA-C LAB_1 Performing Organization Address [facility] Phon e Number HP CONVERSION (ABNORMAL) WET PREP (11/12/2013 10:38 AM CDT) [facility] Method Time Signature WETPR [place] (A) [...] 11/12/2013 11:16 AM CDT Performed at [facility], [address], [place] [address] Jonh Phillips PA-C LAB_1 Performing Organization Address [facility] Phon e Number HP CONVERSION Test (Urine) (11/12/2013 10:38 AM CDT) Analysis Performed At [facility] Time Signature Urine Negative HP CONVERSION Test Specimen Anatomical Collection Method Collection Time Receive d Time (Source) Location / / Volume Laterality 11/12/2013 10:38 11/12/2013 AM CDT 11:13 AM CDT Narrative HP CONVERSION - 11/12/2013 11:16 AM CDT Performed at [facility], [address], [place] [address] Jonh Phillips PA-C LAB_1 Performing Organization Address [...] improvement. documented in this encounter Care Teams Manager Transmission Relationship Specialty Start Date End Date Needs Pcp, Assignment PCP - General 11/12/13 09/15/17 [place] [address] documented as of this encounter
--- OUTSIDE RECORDS SUMMARY | 2022-06-18 09:37 | XMS_ITS | Encounter Summary ---
:1975 Author Organization [facility] Address [address] [address] Care Team Providers Name Role Phone Found, No Pcp MD Primary Care Provider Unavailable Reason for Visit Reason Comments EDEMA hands, lower legs and feet n oticed x3 days Encounter Details Date Type Department Care Team Description 05/24/2021 Office Visit [facility] Deion Sanabria Edema, un specified Hector Root PA-C type (Primary Dx) [address] [facility] [address] [place] [address] [place], [place] [phone] [id number] Social History Tobacco Use Types Packs/Day Years [...] on her ankles. She currently moved from [facility] to a facility in [facility]. She notes that she was taken of chlorthalidone while at the [facility], though does not know why. Review of [...] or chest pain. Her PCP is in [facility]. OBJECTIVE: BP (!) 122/97 (BP Location: [...] Primary documented in this encounter Care Teams Insurance Underwriter Relationship Specialty Start Date End Date Found, No Pcp, PCP - General 09/16/17 08/30/21 [address] [place] [address] documented as of this encounter
--- OUTSIDE RECORDS SUMMARY | 2022-06-18 09:37 | XMS_ITS | Encounter Summary ---
:1975 Author Organization [facility] Address [address] [place] [address] Care Team Providers Name Role Phone No Primary/Referring, Phy Primary Care Provider Unavailable Reason for Referral Consult/Transfer Care (Routine) - Incomplete Specialty Diagnoses / Procedures Referred By Contact Refer red To Contact Diagnoses Migraine without status migrainosus, not intractable, unspecified migraine type Hypertension, unspecified type (HRC) Brandon Murphy MD [address] [place] [address] Referral ID Status Reason Start Date Expiration Date Visits V isits Requested Authorized [id number] Incomplete 09/13/2021 12/12/2021 1 1 Scheduling Instructions If scheduling assistance is needed, plea se inquire with the Hospital staff upon discharge. 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 AND SHRUB TECHNICIAN Consult/Transfer Care (Routine) - Incomplete Specialty Diagnoses / Procedures Referred By Contact Refer red To Contact Diagnoses PTSD (post-traumatic stress disorder) (HRC) Brandon Murphy MD [address] [place] [address] Referral ID Status Reason Start Date Expiration Date Visits V isits Requested Authorized [id number] Incomplete 09/12/2021 12/11/2021 1 1 Scheduling Instructions If scheduling assistance is needed, sebastian bateman inquire with the Hospital staff upon discharge. AND SHRUB TECHNICIAN Consult/Transfer Care (Routine) - Incomplete Specialty Diagnoses / Procedures Referred By Contact Refer red To Contact Diagnoses Major depression (HRC) Brandon Murphy MD [address] [place] [address] Referral ID Status Reason Start Date Expiration Date Visits V isits Requested Authorized [id number] Incomplete 09/12/2021 03/11/2022 1 1 Scheduling Instructions [...] ask your clinician's staff to assist you. AND SHRUB TECHNICIAN Reason for Visit Auth/Cert Specialty Diagnoses / Procedures Referred By Contact Refer red To Contact Diagnoses Suicidal ideation . 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); [phone] Major depressio n; PTSD (post-trau matic stress [...] Comments Blood Pressure 123/58 09/13/2021 11:00 AM TREE AND SHRUB TECHNICIAN Pulse 86 09/13/2021 11:00 AM TREE AND SHRUB TECHNICIAN Temperature 36.8 ??C (98.2 ??F) 09/13/2021 11:00 AM TREE AND SHRUB TECHNICIAN Respiratory Rate 16 09/13/2021 11:00 AM TREE AND SHRUB TECHNICIAN Oxygen Saturation 96% 09/13/2021 11:00 AM TREE AND SHRUB TECHNICIAN Inhaled Oxygen Concentration - - Weight 102.2 kg (225 lb 3.2 oz) 09/08/2021 8:00 AM TREE AND SHRUB TECHNICIAN Height 157.5 cm (5' 2) 09/08/2021 8:00 AM TREE AND SHRUB TECHNICIAN Body Mass Index 41.19 09/08/2021 8:00 AM TREE AND SHRUB TECHNICIAN documented in this encounter Discharge Summaries Rudy Rees RN - 09/13/2021 1:41 PM CST [facility] Discharge Note - Nursing Admission Date/Time: 09/03/2021 [...] stored: N/A --- End of Report --- AND SHRUB TECHNICIAN Brandon Murphy MD - 09/13/2021 8:39 AM CST [facility] PSYCHIATRY DISCHARGE SUMMARY Admission Date and Time: [...] 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 However, she does not know when she last worked. She thinks that she was most recently living with her daughter and her daughter's boyfriend at her house in [place]. Patient has history of drinking and was [...] The multidisciplinary treatment team met (RN, OT, director of social services, Physician) on a daily basis to discuss patient care and treatment planning. The psychiatric inpatient setting provided close nursing supervision and access to multiple treatment modalities and programming (group therapy, OT, one-to-one therapy.) Patient support systems such as family, case supervisor, and other care providers were contacted as appropriate for collateral information and treatment planning. 1. Medication Trials and Changes: 09/04/2021:??Continue on TELEPHONE SEX WORKER Donepezil 10mg qhs, Cymbalta 60mg daily, Melatonin [...] sober housing. She had a recent admission to??[facility] 08/26 - where she had a witnessed [...] how much she will benefit in the longshore equipment operator is debatable. 09/11: Key seems to be [...] worsening memory loss. She was admitted to [facility] 08/26 - where she had a witnessed [...] -restart amlodipine 2.5mg with hold parameters -Hold TELEPHONE SEX WORKER chlorthalidone and amlodipine -follow up with PCP next week for BP check (in office, not telemedicine) ?? Chronic Issues: Alcohol substance use disorder -Continue supportive vitamins ?? Traumatic Brain Injury -TELEPHONE SEX WORKER Aricept ?? Chronic Pain -TELEPHONE SEX WORKER gabapentin, cymbalta Mental Status Exam on Discharge [...] lost one point on orientation to city ([place] She made one minor mistake on sentence [...] up with your primary care physician Comments: [facility] ([facility]) [phone]; [address], [place] [address] References: Specialty Connection Shanon Salas Consult Page Question Answer Comment What type of follow up? IP Discharge Appointment Urgency? Non-Urgent Reason for visit? Medication management, htn Vital Signs Comments: Please monitor blood pressure regularly Behavioral Health Follow-Ups Comments: Date: Tuesday09/15/2021 Time: 3:15 pm Provider: BAYLEE Valentino. [facility] [address] [place] [address]? References: Special[facility] Connection Question Answer Comment Appointment Urgency? Non-Urgent Reason for visit? Psychiatry Follow up with your primary care physician Comments: Tuesday09/16/2021 at 12:[address] Mar Alfaro. This will be at the clinic. [facility] [address] [facility]?? [place] [address]?? [phone] References: Specialty Connection Shanon Salas Consult Page [...] tablet Multiple Dosages:DAILY Starting 09/13/2021, Until 09/19/2021 [id number], For 7 days, THEN DAILY Starting 09/20/2021, [...] you want the dose to be increased [id number] mg. You can also discuss init iating [...] by: Brandon Murphy MD 09/13/2021, 8:40 AM AND SHRUB TECHNICIAN documented in this encounter Discharge Instructions Discharge InstructionsJose Lisa A - 09/12/2021 12:14 PM CST Resources 1. [facility] [place] [facility] [address], [address], [address] ([facility] [place] [facility]) improves the lives of children and adults with mental illnesses and their families by providing free classes on mental illnesses and support groups for adults with mental illnesses, parents and family members. For more information: Toll free: 9-266-IUAO-HELPS Website: www.namihelps.org 2. Online go to: www.[place]Help.info 3 [facility] (serving [facility]) [address] [place] [address] Crisis Line Numbers 1. [facility] [phone] 2. [facility] ([facility]) [phone] 3. [facility] [phone] or [phone] 4. National Suicide Prevention Lifeline (TALK) AND SHRUB TECHNICIAN documented in this encounter Medications at [...] Gonzalez PA-C - 09/12/2021 10:09 PM CST [facility] Medicine Progress Note Patient Name: Key [...] -restart amlodipine 2.5mg with hold parameters -Hold TELEPHONE SEX WORKER chlorthalidone and amlodipine -follow up with PCP next week for BP check (in office, not telemedicine) Chronic Issues: Alcohol substance use disorder -Continue supportive vitamins Traumatic Brain Injury -TELEPHONE SEX WORKER Aricept Chronic Pain -TELEPHONE SEX WORKER gabapentin, cymbalta Depression and Anxiety w/suicidal ideations -Management per primary team (psychiatry) Medicine team will continue to follow, please page/call with questions. FEN - Regular Diet Ppx - Encourage ambulation CODE - Full Shilpi Gonzalez PA-C Department of [facility] Medicine Pager on AMION AND SHRUB TECHNICIAN Brandon Murphy MD - 09/12/2021 9:11 AM CST [facility] Psychiatry Progress Note PATIENT NAME: Key Peres [...] lost one point on orientation to city ([place]). She made one minor mistake on sentence [...] housing. 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 09/11: Key seems to be [...] ideation.??Low acute risk - per collateral at [facility] patient stated she would take all of her pills. Does not have access to medication in the hospital, denies active plan on my interview, denies history of suicide attempts.??Evaluated by psychiatry and she is amenable to voluntary admission. - TELEPHONE SEX WORKER olanzapine discontinued due to possible contributions to [...] PTSD, anxiety, memory impairment, TBI??who presented to [facility] for??SI. ?? Alcohol use disorder, seemingly severe [...] with history TBI and recent admission at [facility] with new onset seizure, who presents with [...] TBI, andpossibly underlying psychiatric illness. I doubt OCCUPATIONAL THERAPY DIRECTOR infection or subclinical seizures. Given recentextensive work [...] Ureña MD?09/01/2021, 1:20 PM Department of Neurology [facility]? Medication Ordered/Consults/Labs/Tests Ordered: 09/04/2021: Continue on TELEPHONE SEX WORKER Donepezil 10mg qhs, Cymbalta 60mg daily, Melatonin [...] insurance Brandon Murphy MD 09/12/2021, 9:11 AM AND SHRUB TECHNICIAN [place], Shilpi Ramsay PA-C - 09/11/2021 4:45 PM [...] or concerns. Shilpi Gonzalez PA-C Department of [facility] Medicine Pager on AMION AND SHRUB TECHNICIAN Brandon Murphy MD - 09/11/2021 2:33 PM CST [facility] Psychiatry Progress Note PATIENT NAME: Key Peres [...] lost one point on orientation to city ([place]). She made one minor mistake on sentence [...] housing. 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 09/11: Key seems to be [...] ideation.??Low acute risk - per collateral at [facility] patient stated she would take all of her pills. Does not have access to medication in the hospital, denies active plan on my interview, denies history of suicide attempts.??Evaluated by psychiatry and she is amenable to voluntary admission. - TELEPHONE SEX WORKER olanzapine discontinued due to possible contributions to [...] PTSD, anxiety, memory impairment, TBI??who presented to [facility] for??SI. ?? Alcohol use disorder, seemingly severe [...] with history TBI and recent admission at [facility] with new onset seizure, who presents with [...] TBI, andpossibly underlying psychiatric illness. I doubt OCCUPATIONAL THERAPY DIRECTOR infection or subclinical seizures. Given recentextensive work [...] Ureña MD?09/01/2021, 1:20 PM Department of Neurology [facility]? Medication Ordered/Consults/Labs/Tests Ordered: 09/04/2021: Continue on TELEPHONE SEX WORKER Donepezil 10mg qhs, Cymbalta 60mg daily, Melatonin [...] the patient consisted of: psychoeducation, supportive therapy, [place], sobriety concerns. Brandon Murphy MD 09/11/2021, 2:34 PM AND SHRUB TECHNICIAN LisaShilpi PA-C - 09/10/2021 7:10 PM CST [facility] Medicine Progress Note Patient Name: Key [...] -restart amlodipine 2.5mg with hold parameters -Hold TELEPHONE SEX WORKER chlorthalidone and amlodipine; can restart if pressures are elevated. Chronic Issues: Alcohol substance use disorder -Continue supportive vitamins Traumatic Brain Injury -TELEPHONE SEX WORKER Aricept Chronic Pain -TELEPHONE SEX WORKER gabapentin, cymbalta Depression and Anxiety w/suicidal ideations -Management per primary team (psychiatry) Medicine team will continue to follow, please page/call with questions. FEN - Regular Diet Ppx - Encourage ambulation CODE - Full Shilpi Gonzalez PA-C Department [facility] Medicine Pager on AMION AND SHRUB TECHNICIAN Brandon Murphy MD - 09/10/2021 8:51 AM CST [facility] Psychiatry Progress Note PATIENT NAME: Key Peres [...] and Concentration: adequate Memory: impaired--short term and penitentiary impairment noted. Fund of Knowledge: likely diminished due to TBI Insight: poor Judgement: poor IMPRESSION Key Peres is a 46 y.o. old female with history of severe alcohol use disorder, TBI with cognitive impairment from 2012, depression and anxiety who was initially admitted to medical unit for worsening memory loss and suicidal ideation from sober housing. She had a recent admission to [facility] 08/26 - where she had a witnessed [...] how much she will benefit in the penitentiary is debatable. DIAGNOSES & PLAN Principal Psychiatric [...] ideation.??Low acute risk - per collateral at [facility] patient stated she would take all of her pills. Does not have access to medication in the hospital, denies active plan on my interview, denies history of suicide attempts.??Evaluated by psychiatry and she is amenable to voluntary admission. - TELEPHONE SEX WORKER olanzapine discontinued due to possible contributions to [...] PTSD, anxiety, memory impairment, TBI??who presented to [facility] for??SI. ?? Alcohol use disorder, seemingly severe [...] with history TBI and recent admission at [facility] with new onset seizure, who presents with [...] TBI, andpossibly underlying psychiatric illness. I doubt OCCUPATIONAL THERAPY DIRECTOR infection or subclinical seizures. Given recentextensive work [...] Ureña MD?09/01/2021, 1:20 PM Department of Neurology [facility]? Medication Ordered/Consults/Labs/Tests Ordered: 09/04/2021: Continue on TELEPHONE SEX WORKER Donepezil 10mg qhs, Cymbalta 60mg daily, Melatonin [...] insurance Brandon Murphy MD 09/10/2021, 8:51 AM AND SHRUB TECHNICIAN LisaShilpi PA-C - 09/09/2021 9:58 PM CST [facility] Medicine Progress Note Patient Name: Key [...] pressure and HR are stable. Continue. -Hold TELEPHONE SEX WORKER chlorthalidone and amlodipine; can restart if pressures are elevated. Chronic Issues: Alcohol substance use disorder -Continue supportive vitamins Traumatic Brain Injury -TELEPHONE SEX WORKER Aricept Chronic Pain -TELEPHONE SEX WORKER gabapentin, cymbalta Depression and Anxiety w/suicidal ideations -Management per primary team (psychiatry) Medicine team will continue to follow, please page/call with questions. FEN - Regular Diet Ppx - Encourage ambulation CODE - Full Shilpi Gonzalez PA-C Department of Hospital Medicine Pager on AMION AND SHRUB TECHNICIAN Brandon Murphy MD - 09/09/2021 8:34 AM CST [facility] Psychiatry Progress Note PATIENT NAME: Key Peres [...] and Concentration: adequate Memory: impaired--short term and longshore equipment operator impairment noted. Can't remember where she was [...] housing. She had a recent admission to [facility] 08/26 - where she had a witnessed [...] ideation.??Low acute risk - per collateral at [facility] patient stated she would take all of her pills. Does not have access to medication in the hospital, denies active plan on my interview, denies history of suicide attempts.??Evaluated by psychiatry and she is amenable to voluntary admission. - TELEPHONE SEX WORKER olanzapine discontinued due to possible contributions to [...] PTSD, anxiety, memory impairment, TBI??who presented to [facility] for??SI. ?? Alcohol use disorder, seemingly severe [...] with history TBI and recent admission at [facility] with new onset seizure, who presents with [...] TBI, andpossibly underlying psychiatric illness. I doubt OCCUPATIONAL THERAPY DIRECTOR infection or subclinical seizures. Given recentextensive work [...] Ureña MD?09/01/2021, 1:20 PM Department of Neurology [facility]? Medication Ordered/Consults/Labs/Tests Ordered: 09/04/2021: Continue on TELEPHONE SEX WORKER Donepezil 10mg qhs, Cymbalta 60mg daily, Melatonin [...] insurance Brandon Murphy MD 09/09/2021, 8:36 AM AND SHRUB TECHNICIAN Ronald Michael PA-C - 09/08/2021 3:22 PM CST [facility] Medicine Progress Note Patient Name: Key [...] pressure and HR are stable. Continue. -Hold TELEPHONE SEX WORKER chlorthalidone and amlodipine; can restart if pressures are not stable. Chronic Issues: Alcohol substance use disorder -Continue supportive vitamins Traumatic Brain Injury -TELEPHONE SEX WORKER Aricept Chronic Pain -TELEPHONE SEX WORKER gabapentin, cymbalta Depression and Anxiety w/suicidal ideations -Management per primary team (psychiatry) Medicine team will continue to follow, please page/call with questions. FEN - Regular Diet Ppx - Encourage ambulation CODE - Full JANN ChurchC [facility] Medicine AND SHRUB TECHNICIAN Brandon Murphy MD - 09/08/2021 3:09 PM CST [facility] Psychiatry Progress Note PATIENT NAME: Key Peres [...] and Concentration: adequate Memory: impaired--short term and longshore equipment operator impairment noted. Can't remember where she was [...] housing. She had a recent admission to [facility] 08/26 - where she had a witnessed [...] ideation.??Low acute risk - per collateral at [facility] patient stated she would take all of her pills. Does not have access to medication in the hospital, denies active plan on my interview, denies history of suicide attempts.??Evaluated by psychiatry and she is amenable to voluntary admission. - TELEPHONE SEX WORKER olanzapine discontinued due to possible contributions to [...] PTSD, anxiety, memory impairment, TBI??who presented to [facility] for??SI. ?? Alcohol use disorder, seemingly severe [...] with history TBI and recent admission at [facility] with new onset seizure, who presents with [...] TBI, andpossibly underlying psychiatric illness. I doubt OCCUPATIONAL THERAPY DIRECTOR infection or subclinical seizures. Given recentextensive work [...] Ureña MD?09/01/2021, 1:20 PM Department of Neurology [facility]? Medication Ordered/Consults/Labs/Tests Ordered: 09/04/2021: Continue on TELEPHONE SEX WORKER Donepezil 10mg qhs, Cymbalta 60mg daily, Melatonin [...] insurance Brandon Murphy MD 09/08/2021, 8:33 AM AND SHRUB TECHNICIAN Darya Jane PA-C - 09/07/2021 11:51 AM CST [facility] Psychiatry Progress Note PATIENT NAME: Key Peres [...] and Concentration: adequate Memory: impaired--short term and longshore equipment operator impairment noted. Can't remember where she was [...] housing. She had a recent admission to [facility] 08/26 - where she had a witnessed [...] ideation.??Low acute risk - per collateral at [facility] patient stated she would take all of her pills. Does not have access to medication in the hospital, denies active plan on my interview, denies history of suicide attempts.??Evaluated by psychiatry and she is amenable to voluntary admission. - TELEPHONE SEX WORKER olanzapine discontinued due to possible contributions to [...] PTSD, anxiety, memory impairment, TBI??who presented to [facility] for??SI. ?? Alcohol use disorder, seemingly severe [...] with history TBI and recent admission at [facility] with new onset seizure, who presents with [...] TBI, andpossibly underlying psychiatric illness. I doubt OCCUPATIONAL THERAPY DIRECTOR infection or subclinical seizures. Given recentextensive work [...] Ureña MD?09/01/2021, 1:20 PM Department of Neurology [facility]? Medication Ordered/Consults/Labs/Tests Ordered: 09/04/2021: Continue on TELEPHONE SEX WORKER Donepezil 10mg qhs, Cymbalta 60mg daily, Melatonin [...] Location of clinician Home. Location of patient [facility]. Billing based on: Complexity Report Completed By: Darya Jane PA-C AND SHRUB TECHNICIAN Darya Jane PA-C - 09/06/2021 8:33 AM CST [facility] Psychiatry Progress Note PATIENT NAME: Key Peres [...] and Concentration: adequate Memory: impaired--short term and penitentiary impairment noted Fund of Knowledge: likely diminished due to TBI Insight: poor Judgement: poor IMPRESSION Key Peres is a 46 y.o. old female with history of severe alcohol use disorder, TBI with cognitive impairment from 2012, depression and anxiety who was initially admitted to medical unit for worsening memory loss and suicidal ideation from sober housing. She had a recent admission to [facility] 08/26 - where she had a witnessed [...] ideation.??Low acute risk - per collateral at [facility] patient stated she would take all of her pills. Does not have access to medication in the hospital, denies active plan on my interview, denies history of suicide attempts.??Evaluated by psychiatry and she is amenable to voluntary admission. - TELEPHONE SEX WORKER olanzapine discontinued due to possible contributions to [...] PTSD, anxiety, memory impairment, TBI??who presented to [facility] for??SI. ?? Alcohol use disorder, seemingly severe [...] with history TBI and recent admission at [facility] with new onset seizure, who presents with [...] TBI, andpossibly underlying psychiatric illness. I doubt OCCUPATIONAL THERAPY DIRECTOR infection or subclinical seizures. Given recentextensive work [...] Ureña MD?09/01/2021, 1:20 PM Department of Neurology [facility]? Medication Ordered/Consults/Labs/Tests Ordered: 09/04/2021: Continue on TELEPHONE SEX WORKER Donepezil 10mg qhs, Cymbalta 60mg daily, Melatonin [...] Location of clinician Home. Location of patient [facility]. Billing based on: Complexity Report Completed By: Darya Jane PA-C AND SHRUB TECHNICIAN Darya Jane PA-C - 09/05/2021 8:13 AM CST [facility] Psychiatry Progress Note PATIENT NAME: Key Peres [...] and Concentration: adequate Memory: impaired--short term and penitentiary impairment noted Fund of Knowledge: likely diminished due to TBI Insight: poor Judgement: poor IMPRESSION Key Peres is a 46 y.o. old female with history of severe alcohol use disorder, TBI with cognitive impairment from 2012, depression and anxiety who was initially admitted to medical unit for worsening memory loss and suicidal ideation from sober housing. She had a recent admission to [facility] 08/26 - where she had a witnessed [...] ideation.??Low acute risk - per collateral at [facility] patient stated she would take all of her pills. Does not have access to medication in the hospital, denies active plan on my interview, denies history of suicide attempts.??Evaluated by psychiatry and she is amenable to voluntary admission. - TELEPHONE SEX WORKER olanzapine discontinued due to possible contributions to [...] PTSD, anxiety, memory impairment, TBI??who presented to [facility] for??SI. ?? Alcohol use disorder, seemingly severe [...] with history TBI and recent admission at [facility] with new onset seizure, who presents with [...] TBI, andpossibly underlying psychiatric illness. I doubt OCCUPATIONAL THERAPY DIRECTOR infection or subclinical seizures. Given recentextensive work [...] Ureña MD?09/01/2021, 1:20 PM Department of Neurology [facility]? Medication Ordered/Consults/Labs/Tests Ordered: 09/04/2021: Continue on TELEPHONE SEX WORKER Donepezil 10mg qhs, Cymbalta 60mg daily, Melatonin [...] Complexity Report Completed By: Darya Jane PA-C AND SHRUB TECHNICIAN Jenifer Mayers, CHART READER, SUPERVISOR DRAWING - 09/03/2021 8:48 PM CST [place] 09/03/2021 8:48 PM Patient has been transferred to [facility] from the medicine service. she [...] anti-epileptic at this time, low suspicion for OCCUPATIONAL THERAPY DIRECTOR infection. - Requested recent CT and MRI [...] #PTSD #Anxiety - hold olanzapine - continue TELEPHONE SEX WORKER donepezil, gabapentin, and duloxetine - scheduled melatonin ?? #Headache - Patient reports 2-3 days of headache per week, describes a headache that starts in the back of herhead and spreads to the front - Tylenol 500 mg q4h PRN ?? #EtOH Use Disorder - Patient reports she has not used alcohol in over 80 days.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 SHRUB TECHNICIAN Plan of Care - Mar Mcginnis RN - 09/05/2021 10:22 PM CST Problem: Thought Process Alteration (Adult) Goal: Improved Thought Process Outcome: Progressing [facility] Plan of Care Note Assessment: mood Plan: [...] 100 % --- End of Report --- AND SHRUB TECHNICIAN Plan of Care - Tammy Cano RN - 09/05/2021 9:47 AM CST [facility] Plan of Care Note Assessment: Altered mood [...] concerns noted. --- End of Report --- AND SHRUB TECHNICIAN Plan of Care - Ela Hightower RN - 09/05/2021 5:25 AM CST Problem: Patient Care Overview (Adult) Goal: Plan of Care Review Outcome: Progressing [facility] Plan of Care Note Assessment: Sleep Plan: Pt will sleep > 5 hrs. Subjective: NA Objective: Pt appeared to have slept through out the night. PRN Tylenol 650 mg was administered at 0307 for migraine. No other concerns. 15 min checks ongoing. --- End of Report --- AND SHRUB TECHNICIAN Plan of Care - Mra Mcginnis RN - 09/04/2021 11:15 PM CST Problem: Thought Process Alteration (Adult) Goal: Improved Thought Process Outcome: [facility] Plan of Care Note Assessment: [...] 95 % --- End of Report --- AND SHRUB TECHNICIAN Plan of Care - Tammy Cano RN - 09/04/2021 2:25 PM CST [facility] Plan of Care Note Assessment: Altered thought [...] concerns noted. --- End of Report --- AND SHRUB TECHNICIAN Initial Assessments - Jerrica Villegas LICSW - 09/04/2021 9:11 AM TREE AND SHRUB TECHNICIAN [facility] Social Work Initial Assessment Admission Date/Time: 09/03/2021 8:33 PM Age: 46 y.o. Attending Practitioner: Darya Jane PA-C County: [place] Admitting Diagnosis: Encounter Diagnoses Name Primary? Pain Reason for admit: Patient admitted to medicine due to confusion also endorsing suicidal ideations. History of TBI. Recent sudden onset of short term memory loss. Patient was at [facility] treatment. Please see ED and medicine notes for further details. Legal Status: On Admission: VoluntaryVoluntary Current: Voluntary Intrusive Treatment Plan: No Other Legal Issues: Unknown Living Situation: Other (comment) Sober house with treatment, cannot return. Collateral Contacts Family/Friend Contact Release of Information?: Yes Family/Friend Contact Name: Alyson Cedeño - Mother Family/Friend Contact or [phone] Financial Insurance: Medicare and [facility] Employment/Income: Unable to assess Psychiatric/Chemical Dependency/Medical History Patient has no prior psychiatric hospitalizations. Patient has a history of TBI, depression and anxiety. Patient has a long history of alcohol use. Has been to multiple treatments and was recently in MAD[facility] treatment at [facility]. Please see H&P for details in regards [...] presentation. Alyson states that they live in [place]. Alyson reports that patient reports worsening memory issues about a year ago that caused her to quit her job, but things had been going well in the past year. Alyson states that she saw patient at [place], and she did not seem as sharp [...] community provider, ambivalence about accepting treatment for [place], some readiness to consider impact of [place] on quality of life, addressing needs in community has not reduced symptoms in last month) [place] Treatment Recommendations for Inpatient/Outpatient Persuasion group (stage [...] Social Work Plan Anticipated Disposition: TBD, family? AND SHRUB TECHNICIAN Initial Assessments - Lucrecia Lockett OTR/Josue - 09/04/2021 8:11 AM TREE AND SHRUB TECHNICIAN [facility] MH OT Initial Assessment Diagnosis: Encounter Diagnoses Name Primary? Pain Patient Data on File [address] [place] [address] Social History Socioeconomic History ??? Marital status: [...] Initial sensory items/activities receptive and preferred Warm [place], Weighted equipment, Environmental Modifications Initial sensory items/activities [...] 8:46 AM --- End of Report --- AND SHRUB TECHNICIAN Plan of Care - Aissatou Lew - 09/04/2021 7:41 AM CST Images from the original note were not included. [facility] Clinical Pharmacy Consult Note Below is a [...] being admitted. --- End of Report --- AND SHRUB TECHNICIAN Plan of Care - Lucrecia Lockett OTR/L - 09/04/2021 7:17 AM CST [facility] Occupational Therapy Plan of Care Note [...] IM&R recovery goal IM&R Recovery Goal: This typewriter assembly and parts inspector discussed IM&R recovery strategies with patient, The patientidentified the below noted personal recovery goal, This typewriter assembly and parts inspector and the patient developed the above steps [...] documentation. Lucrecia Lockett OTR/L 09/04/2021 3:02 PM AND SHRUB TECHNICIAN Plan of Care - Ela Hightower RN - 09/04/2021 6:28 AM CST Problem: Patient Care Overview (Adult) Goal: Plan of Care Review Outcome: Progressing [facility] Plan of Care Note Assessment: Sleep Plan: Pt will sleep > 5 hrs. Subjective: NA Objective: Pt appeared to have slept throughout the night. PRN tylenol 650 mg administered at 0545 for migraine, pain 03/17. No other concerns. 15 min checks ongoing. --- End of Report --- AND SHRUB TECHNICIAN Plan of Care - Roxana Lopez RN - 09/03/2021 11:04 PM CST Problem: Patient Care Overview (Adult) Goal: Plan of Care Review Outcome: Progressing Problem: Thought Process Alteration (Adult) Goal: Identify Related Risk Factors and Signs and Symptoms Outcome: Progressing [facility] Plan of Care Note Assessment: Thought process, [...] her and refused to give it to typewriter assembly and parts inspector saying it is not an [employer] watch. Legal Status: Privilege Level: Safety Observation: Suicidal Ideation/Homicidal Ideation: Mood: Vital Signs: Patient Vitals for the past 24 hrs: BP Temp Temp src Pulse Resp 09/03/21 2300 132/88 -- -- 98 -- 09/03/21 2130 (!) 155/100 98.7 ??F (37.1 ??C) Skin (!) 114 18 No additional behavioral or safety concerns noted. --- End of Report --- AND SHRUB TECHNICIAN documented in this encounter Administered Medications Inactive Administered Medications - up to 3 most recent administrations Medication Order MAR Action Action Date Dose Rate Site acetaminophen (TYLENOL) tablet Given 09/07/2021 12:43 AM TREE AND SHRUB TECHNICIAN 650 mg 650 mg 650 mg, Oral, [...] of each other. Given 09/06/2021 1:12 AM TREE AND SHRUB TECHNICIAN 650 mg Given 09/05/2021 3:07 AM TREE AND SHRUB TECHNICIAN 650 mg amLODIPine (NORVASC) tablet 2.5 mg Given 09/13/2021 8:10 AM TREE AND SHRUB TECHNICIAN 2.5 mg 2.5 mg, Oral, DAILY, First dose on Tue09/11/21 at 0900, Until Discontinued, Hold for SBP <110, Indications: Hypertension Given 09/12/2021 8:03 AM TREE AND SHRUB TECHNICIAN 2.5 mg Given 09/11/2021 8:55 AM TREE AND SHRUB TECHNICIAN 2.5 mg oloycis-nfzouwuhrgydq-dwbqzssc (EXCEDRIN Given 09/09/2021 10:59 PM 2 Tablets MIGRAINE) 250-250-65 MG per tablet 2 Tab let TREE AND SHRUB TECHNICIAN 2 Tablet, Oral, ONCE PRN, Headache, Starting [...] tablet 10 mg Given 09/12/2021 8:08 PM TREE AND SHRUB TECHNICIAN 10 mg 10 mg, Oral, HS, First dose (after last modification) on Tue09/03/21 at 2115, Until Discontinued Given 09/11/2021 8:41 PM TREE AND SHRUB TECHNICIAN 10 mg Given 09/10/2021 8:38 PM TREE AND SHRUB TECHNICIAN 10 mg DULoxetine (CYMBALTA) delayed release capsule Given 8:58 AM TREE AND SHRUB TECHNICIAN 60 mg 60 mg 60 mg, Oral, DAILY, First dose (after last modification) on Tue09/04/21 at 0900, Until Discontinued Given 09/08/2021 8:55 AM TREE AND SHRUB TECHNICIAN 60 mg Given 09/07/2021 8:29 AM TREE AND SHRUB TECHNICIAN 60 mg DULoxetine (CYMBALTA) delayed release capsule Given 02 /01/2022 8:02 AM TREE AND SHRUB TECHNICIAN 90 mg 90 mg 90 mg, Oral, DAILY, First dose (after last modification) on Tue09/10/21 at 0900, Until Discontinued, Indications: Generalized Anxiety Disorder, Major Depressive Disorder Given 09/12/2021 8:03 AM TREE AND SHRUB TECHNICIAN 90 mg Given 09/11/2021 8:08 AM TREE AND SHRUB TECHNICIAN 90 mg gabapentin (NEURONTIN) capsule 1,200 mg Given 09/13/2021 8:01 AM TREE AND SHRUB TECHNICIAN 1,200 mg 1,200 mg, Oral, BID, First dose (after last modification) on Tue09/09/21 at 2100, Until Discontinued, Indications: Alcohol Withdrawal Syndrome, Neuropathic Pain Given 09/12/2021 8:07 PM TREE AND SHRUB TECHNICIAN 1,200 mg Given 09/12/2021 8:04 AM TREE AND SHRUB TECHNICIAN 1,200 mg gabapentin (NEURONTIN) capsule 400 mg Given 09/04/2021 8:45 AM TREE AND SHRUB TECHNICIAN 400 mg 400 mg, Oral, TID, First dose (after last modification) on Tue09/04/21 at 0900, Until Discontinued, Indications: Neuropathic Pain gabapentin (NEURONTIN) capsule 400 mg Given 09/06/2021 8:05 AM TREE AND SHRUB TECHNICIAN 400 mg 400 mg, Oral, QID, First dose (after last modification) on Tue09/04/21 at 1430, Until Discontinued, Indications: Neuropathic Pain Given 09/05/2021 9:17 PM TREE AND SHRUB TECHNICIAN 400 mg Given 09/05/2021 5:24 PM TREE AND SHRUB TECHNICIAN 400 mg gabapentin (NEURONTIN) capsule 600 mg Given 09/09/2021 8:58 AM TREE AND SHRUB TECHNICIAN 600 mg 600 mg, Oral, QID, First dose (after last modification) on Tue09/06/21 at 1300, Until Discontinued, Indications: Alcohol Withdrawal Syndrome, Neuropathic Pain Given 09/08/2021 8:24 PM TREE AND SHRUB TECHNICIAN 600 mg Given 09/08/2021 4:42 PM TREE AND SHRUB TECHNICIAN 600 mg hydrOXYzine pamoate (VISTARIL) capsule 5 0 mg Given 09/04/2021 8:45 AM TREE AND SHRUB TECHNICIAN 50 mg 50 mg, Oral, Q6H PRN, Anxiety, Starting on Tue09/03/21 at 2051, Until Tue09/04/21 at 1405 Given 09/03/2021 9:22 PM TREE AND SHRUB TECHNICIAN 50 mg hydrOXYzine pamoate (VISTARIL) capsule 5 0 mg Given 09/13/2021 1:22 PM TREE AND SHRUB TECHNICIAN 50 mg 50 mg, Oral, Q6H PRN, Anxiety, Starting on Tue09/04/21 at 1540, Until Tue09/13/21 at 1651, Indications: Anxiety Given 09/12/2021 8:21 PM TREE AND SHRUB TECHNICIAN 50 mg Given 09/12/2021 1:40 PM TREE AND SHRUB TECHNICIAN 50 mg hydrOXYzine pamoate (VISTARIL) capsule 5 0 mg Given 09/08/2021 4:42 PM TREE AND SHRUB TECHNICIAN 50 mg 50 mg, Oral, ONCE, On Tue09/08/21 at 1530, For 1 dose melatonin tablet 3 mg Given 09/12/2021 8:08 PM TREE AND SHRUB TECHNICIAN 3 mg 3 mg, Oral, HS, First dose (after last modification) on Tue09/03/21 at 2115, Until Discontinued Given 09/11/2021 8:41 PM TREE AND SHRUB TECHNICIAN 3 mg Given 09/10/2021 8:38 PM TREE AND SHRUB TECHNICIAN 3 mg melatonin tablet 6 mg Given 09/11/2021 11:53 PM TREE AND SHRUB TECHNICIAN 6 mg 6 mg, Oral, HS PRN, Sedation, Starting on Tue09/03/21 at 2051, Until Tue09/13/21 at 1651 Given 09/10/2021 9:50 PM TREE AND SHRUB TECHNICIAN 6 mg Given 09/09/2021 10:59 PM TREE AND SHRUB TECHNICIAN 6 mg metoprolol succinate (TOPROL XL) extended Given 09/08/2021 8:55 AM TREE AND SHRUB TECHNICIAN 50 mg release tablet 50 mg 50 mg, Oral, DAILY, First dose on Tue09/08/21 at 0900, Until Discontinued, Tablet may be split in half, but not crushed. Hold for SBP <110. multivitamin with minerals tablet 1 Tabl et Given 09/13/2021 8:02 AM TREE AND SHRUB TECHNICIAN 1 Tablet 1 Tablet, Oral, DAILY, First dose on Tue09/08/21 at 1330, Until Discontinued Given 09/12/2021 8:04 AM TREE AND SHRUB TECHNICIAN 1 Tablet Given 09/11/2021 8:09 AM TREE AND SHRUB TECHNICIAN 1 Tablet naltrexone (REVIA) tablet 12.5 mg Given 09/13/2021 8:01 AM TREE AND SHRUB TECHNICIAN 12.5 mg 12.5 mg, Oral, DAILY, First dose on Tue09/11/21 at 1800, Until Discontinued, Indications: Alcohol Use Disorder Given 09/12/2021 8:04 AM TREE AND SHRUB TECHNICIAN 12.5 mg Given 09/11/2021 5:49 PM TREE AND SHRUB TECHNICIAN 12.5 mg nicotine (NICODERM CQ) 21 Patch Applied 09/13/2021 8:07 AM TREE AND SHRUB TECHNICIAN 1 Patc h Left Deltoid MG/24HR 1 Patch 1 Patch, Transdermal, DAILY, First dose (after last modification) on Tue09/04/21 at 0900, Until Discontinued, Hazardous waste disposal required. Patch Applied 09/12/2021 8:08 AM TREE AND SHRUB TECHNICIAN 1 Patch Righ t Deltoid Patch Applied 09/11/2021 8:12 AM TREE AND SHRUB TECHNICIAN 1 Patch Righ t Deltoid OLANZapine (ZyPREXA) tablet 5 mg Given 09/09/2021 8:58 PM TREE AND SHRUB TECHNICIAN 5 mg 5 mg, Oral, BID PRN, Other, Severe anxiety, agitation, Starting on Tue09/07/21 at 1151, Until 09/13/21 at 1651 Given 09/08/2021 8:25 PM TREE AND SHRUB TECHNICIAN 5 mg Given 09/07/2021 9:20 PM TREE AND SHRUB TECHNICIAN 5 mg polyethylene glycol (MIRALAX) oral powde [...] tablet 100 mg Given 09/08/2021 4:41 PM TREE AND SHRUB TECHNICIAN 100 mg 100 mg, Oral, ONCE PRN, Migraine, Starting on Tue09/08/21 at 1528, Until Tue09/08/21 at 1641, For 1 dose, Give at onset of headache. May repeat after 2 hours. Do not exceed 200 mg in 24 hours. SUMAtriptan (IMITREX) tablet 25 mg Given 09/06/2021 10:50 AM TREE AND SHRUB TECHNICIAN 25 mg 25 mg, Oral, ONCE, On 09/06/21 at 1045, For 1 dose, Give at onset of headache. May repeat after 2 hours. Do not exceed 200 mg in 24 hours., Indications: Migraine SUMAtriptan (IMITREX) tablet 50 mg Given 09/07/2021 2:58 PM TREE AND SHRUB TECHNICIAN 50 mg 50 mg, Oral, ONCE PRN, [...] injection 200 mg Given 09/13/2021 2:39 PM TREE AND SHRUB TECHNICIAN 200 mg Other 200 mg, Intramuscular, TID, First dose (after last modification) on Tue09/08/21 at 1700, Until Discontinued, Indications: Wernicke-Korsakoff Syndrome Given 09/13/2021 8:02 AM TREE AND SHRUB TECHNICIAN 200 mg Other Given 09/12/2021 8:08 PM TREE AND SHRUB TECHNICIAN 200 mg Right Deltoid thiamine (VITAMIN B-1) tablet 100 mg Given 09/08/2021 8:54 AM TREE AND SHRUB TECHNICIAN 100 mg 100 mg, Oral, DAILY, First dose on Tue09/04/21 at 0900, Until Discontinued Given 09/07/2021 8:29 AM TREE AND SHRUB TECHNICIAN 100 mg Given 09/06/2021 8:05 AM TREE AND SHRUB TECHNICIAN 100 mg traZODone (DESYREL) tablet 25 mg Given 09/12/2021 8:07 PM TREE AND SHRUB TECHNICIAN 25 mg 25 mg, Oral, HS PRN, Sleep, Starting on Tue09/11/21 at 1755, Until 09/13/21 at 1651 Given 09/11/2021 11:53 PM TREE AND SHRUB TECHNICIAN 25 mg documented in this encounter Active and Recently Administered Medications Times are shown in TREE AND SHRUB TECHNICIAN. Scheduled Medication Order 09/11/2021 09/12/2021 09/13/2021 amLODIPine [...] Manage Orders - Provider: Md Kitchen Template Alessandrafl) 50 mg, Oral, DAILY, First dose on [...] in Manage Orders - Provider: Inpatient Template Epicfl) 100 mg, Oral, DAILY, First dose on [...] st ools. When patient stools stop giving NC N meds and continue monitoring for bowel [...] stools.
documented in this encounter Care Teams Stapler Machine Relationship Specialty Start Date End Date No Primary/Referring, Phy PCP - General 08/31/21 documented as of this encounter
--- OUTSIDE RECORDS SUMMARY | 2022-06-18 09:37 | XMS_ITS | Encounter Summary ---
:1975 Author Organization [employer] Address [address] [place] [address] Care Team Providers Name Role Phone No Primary/Referring, Phy Primary Care Provider Unavailable Encounter Details Date Type Department Care Team Description 09/03/2021 Orders Only RH W2 OBSERVATION Leah Salazar MD [facility] [address] [place] [address] [place] [address] [phone] (Wo rk) Social History Tobacco Use Types [...] on filedocumented in this encounter Care Teams Veneer Splicer Relationship Specialty Start Date End Date No Primary/Referring, Phy PCP - General 08/31/21 documented as of this encounter
--- OUTSIDE RECORDS SUMMARY | 2022-06-18 09:37 | XMS_ITS | Encounter Summary ---
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 Suicidal ideation YMAN Rebecca Bray, LIZZ - 08/31/2021 9:55 AM CST Pt aware of plan of care for Team Assesment denies need for anything at this time YMAN Matthew Gonzalez LICSW - 08/31/2021 9:53 AM CST Collateral contact note: [facility] - [phone] This writer technical publications called number provided by EMS for purposes of collateral. No answer. Left voicemail on confidential program voicemail asking for a call back. RAYO Rowell 08/31/2021, 9:54 AM YMAN Rebecca Bray RN - 08/31/2021 9:47 AM CST Pt arrives via EMS per report pt was at [facility]. pt reported S.I to staff at [facility], with plan to ingest her pills. pt wanded on arrival Per Security, awaiting Team Assessment, pt aware YMAN documented in this encounter Plan of Treatment [...] Time 09/03/2021 8:12 Results fo r PM [facility] this procedure are in the results section. IV INSERTION(LAB TO STAT 09/03/2021 Results for PERFORM) 11:20 AM [facility] this procedure are in the results section. INPATIENT TELEMETRY Routine 09/03/2021 7:06 Resul ts for MONITORING AM [facility] this procedure are in the results section. BASIC METABOLIC PANEL Routine 09/03/2021 5:30 Res ults for AM BUGGYMAN this procedure are in the results section. INPATIENT TELEMETRY Routine 09/03/2021 Results for MONITORING 12:27 AM [facility] this procedure are in the results section. POTASSIUM Specified Time 09/02/2021 7:38 Results fo r PM [facility] this procedure are in the results section. RAPID DRUG PANEL, URINE Routine 09/02/2021 5:15 R esults for (WITH CONFIRMATION) PM [facility] this pro cedure are in the results section. IV INSERTION(LAB TO STAT 09/02/2021 2:18 Resul ts for PERFORM) PM [facility] this procedure are in the results section. ECG 12-LEAD ROUTINE(LAB STAT 09/02/2021 1:38 R esults for PERFORM) PM [facility] this procedure are in the results section. [address]201 ELECTROCARDIOGRAM Routine 09/02/2021 1:36 R esults for TRACING PM [facility] this procedure are in the results section. LIVER PANEL(HEPATIC Add-On 09/02/2021 6:58 Resul ts for FUNCTION PANEL) AM [facility]GGY[facility] this procedu re are in the results section. BASIC METABOLIC PANEL Routine 09/02/2021 6:58 Res ults for AM [facility] this procedure are in the results section. MAGNESIUM Add-On 09/02/2021 6:58 Results for AM [facility] this procedure are in the results section. PHOSPHORUS Add-On 09/02/2021 6:58 Results for AM [facility] this procedure are in the results section. BASIC METABOLIC PANEL Routine 09/01/2021 6:40 Res ults for AM [facility] this procedure are in the results section. VITAMIN B1, BLOOD Routine 08/31/2021 5:33 Results for PM [facility] this procedure are in the results section. FOLATE ONLY (4HR FAST Routine 08/31/2021 5:33 Res ults for RECOMMENDED) PM [facility] this procedure are in the results section. VITAMIN B12 ONLY Routine 08/31/2021 5:33 Results for PM [facility] this procedure are in the results section. EEG VIDEO RECORDING Routine 08/31/2021 3:49 PM [facility] 2019 NOVEL CORONAVIRUS STAT 08/31/2021 2:52 Re sults for PM BUGGYMAN this procedure are in the results section. 64820 LACTATE, WHOLE Routine 08/31/2021 Results for BLOOD 11:17 AM [facility] this procedure are in the results section. BASIC METABOLIC PANEL STAT 08/31/2021 Result s for 11:10 AM [facility] this procedure are in the results section. COMPLETE BLOOD COUNT-NO STAT 08/31/2021 Resu lts for DIFF 11:10 AM [facility] this procedure are in the results section. MAGNESIUM Add-On 08/31/2021 Results for 11:10 AM [facility] this procedure are in the results section. PHOSPHORUS Add-On 08/31/2021 Results for 11:10 AM [facility] this procedure are in the results section. documented in this encounter Results POTASSIUM (09/03/2021 8:12 PM BUGGYMAN) athologist Signature Potassium 3.7 3.5 - 5.1 09/03/2021 [facility] mmol/L 8:46 PM [facility] Specimen Anatomical Collection Method / Collection Time Recei sue Time (Source) Location / Volume Laterality Blood Venipuncture / 09/03/2021 8:12 09/03/2021 8:15 Unknown PM [facility] PM [facility]GG[facility] Leah Almanza MD LAB_1 Performing Organization Address [facility] Phon e Number [address] [address] IV Insertion, LST Perform (09/03/2021 11:20 AM BUGG[facility]) athologist Signature IV INSERTION, Done 09/03/2021 [facility] LST PERFORM 4:02 PM [facility] (LAB) Specimen Anatomical Collection Method Collection Time Receive d Time (Source) Location / / Volume Laterality Other Specimen IV Start / Unknown 09/03/2021 11:20 2:58 Type AM BUGG[facility]MAN PM [facility] Leah Almanza MD LAB_1 Performing Organization Address [facility] Phon e Number [address] [address] INPATIENT TELEMETRY MONITORING (09/03/2021 7:06 AM BUGGYMAN) [facility] gist Method Time Signature TELE P-R INTERVAL 0.19 [facility] TELE QRS DURATION 0.09 [facility] TELE R-R INTERVAL 0.75 [facility] TELE Sinus [facility] INTERPRETATION Rhythm Jen Dimmick, RN Specimen (Source) Anatomical Collection Method Collection Time Re ceived Time Location / / Volume Laterality 09/03/2021 7:06 AM [facility] Internal Processing Epic EKG Performing Organization Address City/State/ZIP Code Phon e Number [facility] [address] [place] [address] (ABNORMAL) Basic Metabolic Panel (09/03/2021 5:30 AM [facility]) athologist Signature Sodium 138 136 - 145 09/03/2021 [facility] mmol/L 6:06 AM [facility] Potassium 3.1 (L) 3.5 - 5.1 09/03/2021 [facility] mmol/L 6:06 AM [facility] Chloride 100 98 - 109 09/03/2021 [facility] mmol/L 6:06 AM [facility] CO2 31 (H) 20 - 29 09/03/2021 [facility] mmol/L 6:06 AM [facility] Anion Gap 7 7 - 16 09/03/2021 [facility] mmol/L 6:06 AM [facility] Calcium 8.9 8.4 - 10.4 09/03/2021 [facility] mg/dL 6:06 AM [facility] BUN 7 7 - 26 09/03/2021 [facility] mg/dL 6:06 AM [facility] Creatinine 0.77 0.55 - 09/03/2021 [facility] 1.02 mg/dL 6:06 AM [facility] GFR, Estimated >60 >60 09/03/2021 [facility] mL/min/1.7 6:06 AM [facility] 3m2 Glucose 114 (H) 70 - 100 09/03/2021 [facility] mg/dL 6:06 AM [facility] Comment: The given reference range is fo r the fasting state. Non-fasting reference range for glucose is 70 - 180 mg/dL. Specimen Anatomical Collection Method / Collection Time Recei sue Time (Source) Location / Volume Laterality Blood Venipuncture / 09/03/2021 5:30 09/03/2021 5:38 Unknown AM [facility] AM [facility] Leah Almanza MD LAB_1 Performing Organization Address City/[facility]/ZIP Code Phon e Number [address] [address] INPATIENT TELEMETRY MONITORING (09/03/2021 12:27 AM BU[facility]) [facility] gist Method Time Signature TELE P-R INTERVAL 0.19 [facility] TELE QRS DURATION 0.09 [facility] TELE R-R INTERVAL 0.70 [facility] TELE QT 0.40 [facility] TELE QTC 0.48 [facility] TELE Sinus [facility] INTERPRETATION Rhythm Lum E., RN Specimen (Source) Anatomical Collection Method Collection Time Re ceived Time Location / / Volume Laterality 09/03/2021 12:27 AM [facility] Internal Processing Epic EKG Performing Organization Address City/State/ZIP Code Phon e Number [facility] [address] [place] [address] (ABNORMAL) POTASSIUM (09/02/2021 7:38 PM [facility]) athologist [facility] Potassium 3.2 (L) 3.5 - 5.1 09/02/2021 [facility] mmol/L 8:29 PM [facility] Specimen Anatomical Collection Method / Collection Time Recei sue Time (Source) Location / Volume Laterality Blood Venipuncture / 09/02/2021 7:38 09/02/2021 7:53 Unknown PM [facility] PM [facility] Leah Almanza MD LAB_1 Performing Organization Address City/[facility]/ZIP [facility] Phon e Number [facility] [address] [place] [address] Rapid Drug Panel, Urine (with Confirmation) (09/02/2021 5:15 PM BUGGYMAN) [facility] Method Time Signature Amphetamines Not Not 09/02/2021 [facility] Screen Detected Detected 5:40 PM [facility] Barbiturates Not Not 09/02/2021 [facility] Screen Detected Detected 5:40 PM [facility] Benzodiazepines Not Not 09/02/2021 [facility] Screen Detected Detected 5:40 PM [facility] Buprenorphine Not Not 09/02/2021 [facility] Screen Detected Detected 5:40 PM [facility] Cocaine Metabolite Not Not 09/02/2021 [facility] Screen Detected Detected 5:40 PM [facility] Methadone Screen Not Not 09/02/2021 [facility] Detected Detected 5:40 PM [facility] Opiates Screen Not Not 09/02/2021 [facility] Detected Detected 5:40 PM [facility] Oxycodone Screen Not Not 09/02/2021 [facility] Detected Detected 5:40 PM [facility] Phencyclidine Not Not 09/02/2021 [facility] (PCP) Screen Detected Detected 5:40 PM [facility] THC (Marijuana) Not Not 09/02/2021 [facility] Metab Screen Detected Detected 5:40 PM [facility] Creatinine, Urine, 47 >20 mg/dL 09/02/2021 [facility] Random 5:40 PM [facility] Specimen Anatomical Collection Method Collection Time Receive d Time (Source) Location / / Volume Laterality Urine Non-blood 09/02/2021 5:15 PM 5:21 Collection / BUGGYMAN PM [facility] Unknown Narrative [facility] - 09/02/2021 5:40 PM CS T [...] Jose Farah PA-C LAB_1 Performing Organization Address [facility]/[address] [address] IV Insertion, LST Perform (09/02/2021 2:18 PM [facility]) athologist Signature IV INSERTION, Done 09/02/2021 [facility] LST PERFORM 5:02 PM [facility] (LAB) Specimen Anatomical Collection Method Collection Time Receive d Time (Source) Location / / Volume Laterality Other Specimen Non-blood 09/02/2021 2:18 PM 022 3:43 Type Collection / BUGGYMAN PM [facility] Unknown Leah Almanza MD LAB_1 Performing Organization Address [facility]/[address] [address] ECG 12-Lead Routine (Lab perform) (09/02/2021 1:38 PM [facility]) athologist Signature EKG Completed 09/02/2021 [facility] 4:02 PM [facility] Specimen Anatomical Collection Method Collection Time Receive d Time (Source) Location / / Volume Laterality Other Specimen Non-blood 09/02/2021 1:38 PM 022 2:27 Type Collection / BUGGYMAN PM [facility] Unknown Leah Almanza MD LAB_1 Performing Organization Address [facility]/ZIP [facility] Phon e Number [facility] [address] [phone] Ecg 12-Lead Routine (MUSE) (09/02/2021 1:36 PM [facility]) P athologist Signature Ventricular Rate 83 BPM [facility] Atrial Rate 83 BPM [facility] P-R Interval 154 ms [facility] QRS Duration 96 ms [facility] QT 398 ms [facility] QTc 467 ms [facility] P [place] 23 degrees [facility] R [place] -20 degrees [facility] T [place] 10 degrees [facility] Specimen (Source) Anatomical Collection Method Collection Time Re ceived Time Location / / Volume Laterality 09/02/2021 1:36 PM [facility] Narrative [facility] - 09/03/2021 8:18 AM BUGGYMAN Sinus rhythm ST & T wave abnormality, consider anteri or ischemia Prolonged QT Abnormal ECG No previous ECGs available Confirmed by Blue Brandt ([id number]) on 8:18:43 AM Procedure Note Blue Brandt MD - 09/03/2021Formatti ng of this note might be different from the original. Sinus rhythm ST & T wave abnormality, consider anteri or ischemia Prolonged QT Abnormal ECG No previous ECGs available Confirmed by Blue Brandt ([id number]) on 8:18:43 AM Leah Almanza MD EKG Performing Organization Address [facility] e Number [facility] [address] [place] [address] Liver Panel(Hepatic Function Panel) (09/02/2021 6:58 AM [facility]) P athologist Signature Alkaline 52 40 - 150 09/02/2021 [facility] Phosphatase U/L 2:26 PM [facility] Bilirubin, Total 0.6 0.2 - 1.2 09/02/2021 [facility] mg/dL 2:26 PM [facility] Bilirubin, 0.2 0.0 - 0.5 09/02/2021 [facility] Direct mg/dL 2:26 PM [facility] AST (SGOT) 12 10 - 40 09/02/2021 [facility] U/L 2:26 PM [facility] ALT (SGPT) 18 0 - 55 U/L 09/02/2021 [facility] 2:26 PM [facility] Protein, Total 6.4 6.4 - 8.3 09/02/2021 [facility] g/dL 2:26 PM [facility] Albumin 3.6 3.5 - 5.0 09/02/2021 [facility] g/dL 2:26 PM [facility] Specimen Anatomical Collection Method / Collection Time Recei sue Time (Source) Location / Volume Laterality Blood Venipuncture / 09/02/2021 6:58 09/02/2021 7:10 Unknown AM [facility] AM [facility] Juan Jose Farah PA-C LAB_1 Performing Organization Address [facility] e [address] [address] PHOSPHORUS (09/02/2021 6:58 AM [facility]) athologist Signature Phosphorus 2.4 2.3 - 4.7 09/02/2021 [facility] mg/dL 8:28 AM [facility] Specimen Anatomical Collection Method / Collection Time Recei sue Time (Source) Location / Volume Laterality Blood Venipuncture / 09/02/2021 6:58 09/02/2021 7:10 Unknown AM [facility] AM [facility] Leah Almanza MD LAB_1 Performing Organization Address [facility]/[address] [address] MAGNESIUM (09/02/2021 6:58 AM [facility]) P athologist Signature Magnesium 1.9 1.6 - 2.6 09/02/2021 [facility] mg/dL 8:28 AM [facility] Specimen Anatomical Collection Method / Collection Time Recei sue Time (Source) Location / Volume Laterality Blood Venipuncture / 09/02/2021 6:58 09/02/2021 7:10 Unknown AM BUGG[facility] AM [facility] Leah Amlanza MD LAB_1 Performing Organization Address [facility] e [address] [address] (ABNORMAL) Basic Metabolic Panel (09/02/2021 6:58 AM [facility]) athologist Signature Sodium 140 136 - 145 09/02/2021 [facility] mmol/L 7:44 AM [facility] Potassium 2.8 (L) 3.5 - 5.1 09/02/2021 [facility] mmol/L 7:44 AM [facility] Chloride 99 98 - 109 09/02/2021 [facility] mmol/L 7:44 AM [facility] CO2 33 (H) 20 - 29 09/02/2021 [facility] mmol/L 7:44 AM [facility] Anion Gap 8 7 - 16 09/02/2021 [facility] mmol/L 7:44 AM [facility] Calcium 9.2 8.4 - 10.4 09/02/2021 [facility] mg/dL 7:44 AM [facility] BUN 8 7 - 26 09/02/2021 [facility] mg/dL 7:44 AM [facility] Creatinine 0.87 0.55 - 09/02/2021 [facility] 1.02 mg/dL 7:44 AM [facility] GFR, Estimated >60 >60 09/02/2021 [facility] mL/min/1.7 7:44 AM [facility] 3m2 Glucose 111 (H) 70 - 100 09/02/2021 [facility] mg/dL 7:44 AM [facility] Comment: The given reference range is fo r the fasting state. Non-fasting reference range for glucose is 70 - 180 mg/dL. Specimen Anatomical Collection Method / Collection Time Recei sue Time (Source) Location / Volume Laterality Blood Venipuncture / 09/02/2021 6:58 09/02/2021 7:10 Unknown AM [facility] AM [facility] Leah Almanza MD LAB_1 Performing Organization Address City/State/ZIP Code Phon e Number [address] [address] (ABNORMAL) Basic Metabolic Panel (09/01/2021 6:40 AM [facility]) P athologist Signature Sodium 136 136 - 145 09/01/2021 [facility] mmol/L 7:35 AM [facility] Potassium 3.0 (L) 3.5 - 5.1 09/01/2021 [facility] mmol/L 7:35 AM [facility] Chloride 97 (L) 98 - 109 09/01/2021 [facility] mmol/L 7:35 AM [facility] CO2 31 (H) 20 - 29 09/01/2021 [facility] mmol/L 7:35 AM [facility] Anion Gap 8 7 - 16 09/01/2021 [facility] mmol/L 7:35 AM [facility] Calcium 9.1 8.4 - 10.4 09/01/2021 [facility] mg/dL 7:35 AM [facility] BUN 12 7 - 26 09/01/2021 [facility] mg/dL 7:35 AM [facility] Creatinine 0.94 0.55 - 09/01/2021 [facility] 1.02 mg/dL 7:35 AM [facility] GFR, Estimated >60 >60 09/01/2021 [facility] mL/min/1.7 7:35 AM [facility] 3m2 Glucose 99 70 - 100 09/01/2021 [facility] mg/dL 7:35 AM [facility] Comment: The given reference range is fo r the fasting state. Non-fasting reference range for glucose is 70 - 180 mg/dL. Specimen Anatomical Collection Method / Collection Time Recei sue Time (Source) Location / Volume Laterality Blood Venipuncture / 09/01/2021 6:40 09/01/2021 7:03 Unknown AM [facility] AM [facility] Blayne Diaz MD LAB_1 Performing Organization Address City/State/ZIP Code Phon e Number [address] [address] (ABNORMAL) Vitamin B12 Only (08/31/2021 5:33 PM [facility]) [facility] gist Method Time Signature Vitamin B12 864 (H) 213 - 816 09/01/2021 [facility] pg/mL 1:25 PM [facility] Specimen Anatomical Collection Method / Collection Time Recei sue Time (Source) Location / Volume Laterality Blood Venipuncture / 08/31/2021 5:33 08/31/2021 5:39 Unknown PM [facility] PM [facility] Blayne Diaz MD LAB_1 Performing Organization Address City/State/ZIP Code Phon e Number [facility] [address] [address] (ABNORMAL) Vitamin B1, Blood (08/31/2021 5:33 PM [facility]) P athologist Signature Vitamin B1 198 (H) 70 - 180 09/04/2021 [facility] nmol/L 9:35 AM [facility] Comment: INTERPRETIVE INFORMATION: Vitamin B1, Wh ole Blood This assay measures the concentration of thiamine diphosphate (TDP), the primary active form of vitami n B1. Approximately 90 percent of vitamin B1 present in whole b lood is TDP. Thiamine and thiamine monophosphate, which comprise t he remaining 10 percent, are not measured. This test was developed and its performa nce characteristics determined by [facility]. It has not been cleared or approved by the [place] Food and Drug Adminis tration. This test was performed in a CLIA certified laboratory and is intended for clinical purposes. Performed By: [facility] [address] [place] [id number] Spanish Tutor: Zora Giraldo MD Specimen Anatomical Collection Method / Collection Time Recei sue Time (Source) Location / Volume Laterality Blood Venipuncture / 08/31/2021 5:33 08/31/2021 5:40 Unknown PM [facility] PM [facility] Blayne Diaz MD LAB_1 Performing Organization Address City/[facility]/ZIP Code Phon e Number [facility] [address] [phone] Folate Only (4Hr Fast Recommended) (08/31/2021 5:33 PM [facility]) P athologist Signature Folate 17.2 >=7.0 09/01/2021 [facility] ng/mL 11:01 AM [facility] Specimen Anatomical Collection Method / Collection Time Recei sue Time (Source) Location / Volume Laterality Blood Venipuncture / 08/31/2021 5:33 08/31/2021 5:39 Unknown PM [facility] PM [facility] Blayne Diaz MD LAB_1 Performing Organization Address City/[facility] Code Phon e Number [facility] [address] [address] COVID (Rapid Yellow Kit, Nares) - Asymptomatic [facility] ED ONLY (08/31/2021 2:52 PM [facility]) [facility] gist Method Time Signature COVID-19 Not Not 08/31/2021 [facility] Interpretation Detected Detected 3:29 PM [facility] Source Nares, left 08/31/2021 [facility] and right 3:29 PM [facility] Specimen Anatomical Collection Method Collection Time Receive d Time (Source) Location / / Volume Laterality Swab (Source ENTIRE ANTERIOR Non-blood 08/31/2021 2:52 PM 2021 2:54 Required) NARIS / Unknown Collection / [facility] PM [facility] Unknown Narrative [facility] - 08/31/2021 3:29 PM CS T Test performed by nucleic acid amplification technology (NAAT). This test has been authorized by the FDA under an Emergency Use Authorization (EUA) for use by authorized laboratories. Nas Carlin PA-C LAB_1 Performing Organization Address [facility]/ZIP [facility] Phon e Number [address] [address] (ABNORMAL) Lactate Panel, Venous POCT (08/31/2021 11:17 AM [facility]) [facility] gist Method Time Signature Lactate, Whole 0.83 0.50 - 08/31/2021 [facility] Blood 2.00 11:29 AM [facility] mmol/L PO2, Venous 26 (L) 30 - 50 08/31/2021 [facility] mmHg 11:29 AM [facility] Performing [facility] ED F 08/31/2021 [facility] Location 11:29 AM [facility] Specimen Anatomical Collection Method Collection Time Receive d Time (Source) Location / / Volume Laterality Blood 08/31/2021 11:17 08/31/2021 AM [facility] 11:29 AM [facility] Jocelyn Provider LAB_1 Performing Organization Address [facility] Phon e Number [address] [address] PHOSPHORUS (08/31/2021 11:10 AM [facility]) P athologist Signature Phosphorus 4.5 2.3 - 4.7 08/31/2021 [facility] mg/dL 2:32 PM [facility] Specimen Anatomical Collection Method / Collection Time Recei sue Time (Source) Location / Volume Laterality Blood Venipuncture / 08/31/2021 11:10 2 Unknown AM [facility] 11:19 AM [facility] Clifton Peña MD LAB_1 Performing Organization Address [facility]/ZIP [facility] Phon e Number [address] [address] MAGNESIUM (08/31/2021 11:10 AM [facility]) P athologist Signature Magnesium 1.8 1.6 - 2.6 08/31/2021 [facility] mg/dL 2:32 PM [facility] Specimen Anatomical Collection Method / Collection Time Recei sue Time (Source) Location / Volume Laterality Blood Venipuncture / 08/31/2021 11:10 2 Unknown AM [facility] 11:19 AM [facility] Clifton Peña MD LAB_1 Performing Organization Address City/[facility] Phon e Number [address] [address] (ABNORMAL) Complete Blood Count -no Diff (08/31/2021 11:10 AM [facility]) Analysis Performed At Patho logist Time Signature WBC 9.6 3.5 - 10.5 08/31/2021 [facility] x10(9)/L 11:23 AM [facility] RBC 5.11 (H) 3.90 - 08/31/2021 [facility] 5.03 11:23 AM [facility] x10(12)/L Hemoglobin 14.1 12.0 - 08/31/2021 [facility] 15.5 g/dL 11:23 AM [facility] HCT 42.7 34.9 - 08/31/2021 [facility] 44.5 % 11:23 AM [facility] MCV 83.6 80.0 - 08/31/2021 [facility] 100.0 fL 11:23 AM [facility] MCH 27.6 27.6 - 08/31/2021 [facility] 33.3 pg 11:23 AM [facility] MCHC 33.0 31.5 - 08/31/2021 [facility] 35.2 g/dL 11:23 AM [facility] RDW 15.3 11.9 - 08/31/2021 [facility] 15.5 % 11:23 AM [facility] Platelets 314 150 - 450 08/31/2021 [facility] x10(9)/L 11:23 AM [facility] Automated NRBC 0 <=0 /100 08/31/2021 [facility] WBC 11:23 AM [facility] Specimen Anatomical Collection Method / Collection Time Recei sue Time (Source) Location / Volume Laterality Blood Venipuncture / 08/31/2021 11:10 2 Unknown AM [facility] 11:19 AM [facility] Nas Carlin PA-C LAB_1 Performing Organization Address City/[facility] Code Phon e Number [address] [phone] (ABNORMAL) Basic Metabolic Panel (08/31/2021 11:10 AM [facility]) Analysis Performed At Patho logist Time Signature Sodium 134 (L) 136 - 145 08/31/2021 [facility] mmol/L 11:54 AM [facility] Potassium 3.0 (L) 3.5 - 5.1 08/31/2021 [facility] mmol/L 11:54 AM [facility] Chloride 96 (L) 98 - 109 08/31/2021 [facility] mmol/L 11:54 AM [facility] CO2 26 20 - 29 08/31/2021 [facility] mmol/L 11:54 AM [facility] Anion Gap 12 7 - 16 08/31/2021 [facility] mmol/L 11:54 AM [facility] Calcium 9.5 8.4 - 10.4 08/31/2021 [facility] mg/dL 11:54 AM [facility] BUN 13 7 - 26 08/31/2021 [facility] mg/dL 11:54 AM [facility] Creatinine 1.19 (H) 0.55 - 08/31/2021 [facility] 1.02 mg/dL 11:54 AM [facility] GFR, Estimated 57 (L) >60 08/31/2021 [facility] mL/min/1.7 11:54 AM [facility] 3m2 Glucose 98 70 - 100 08/31/2021 [facility] mg/dL 11:54 AM [facility] Comment: The given reference range is fo r the fasting state. Non-fasting reference range for glucose is 70 - 180 mg/dL. Specimen Anatomical Collection Method / Collection Time Recei sue Time (Source) Location / Volume Laterality Blood Venipuncture / 08/31/2021 11:10 2 Unknown AM [facility] 11:19 AM [facility] - 08/31/2021 11:[address] [facility] [...] Address City/State/ZIP Code Phon e Number [address] [address] documented in this encounter Visit Diagnoses Diagnosis [...] alcohol abuse 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, in remission long term use of drug Encounter for long-term (current) use of other medications Plan of Care - Leah Leyva LSW - 09/03/2021 5:08 PM CST [facility] Care Management Follow Up Note Plan: Expected Discharge Date: 09/03/21 Care Coordination Updates: Barriers/Vulnerabilities: homeless/unstable housing, impaired insight, patient continues to require acute medical care, chemical dependency, patient noncompliance, mental health issues, multiple psychosocial issues, patient/family goal/fears/concerns and expectations Contacts: Emergency Contacts Foreign Diplomat (Rel.) Home Phone Work Phone Mobile Phone Alyson Cedeño (Mother) [phone] -- [phone] Gautam Cedeño (Father) [phone] -- -- Additional Comments: TIANNA met with [...] reports she doesn't want to go to [facility] as she doesn't want to take up [...] patient agreed to a voluntary stay at [facility] and will be transferring later today. TIANNA called and reported what patient had told TIANNA. reports the patient has already agreed so ifshe doesn't fight it they will go ahead with the transfer. 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 KAYLIE Jimenez YMAN Plan of Care - Jen Raman RN - 09/03/2021 10:29 AM CST Assumed cares [id number]. Pt A&Ox4 w/ intermittent confusion when trying [...] my work shift are unchanged unless documented. YMAN Plan of Care - Valery Pineda RN - 09/03/2021 2:58 AM CST I completed a full assessment and assessments as ordered and per policy on this patient during my work shift. Reassessments completed during my work shift are unchanged unless documented. YMAN Plan of Care - Richard Gutierrez RN - 09/02/2021 8:39 PM CST [facility]. Practitioner Notified Note Name of Practitioner notified: R 1-4 Crosscover Pager Time of Practitioner notification: 8:39 PM Reason: W2607 A. Sta., Pt. requesting med for anxiety. Response: Pending YMAN Plan of Care -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
== END 2022-06-16 16:53 | disposition home or self-care (01) ==
LOC: AMB 06-18 09:24
PROVIDERS: PCP Family Medicine; Visit Provider Family Medicine
DX: F41.9 Anxiety disorder, unspecified (principal)
CPT/HCPCS: A0425; A0427

== ENCOUNTER 2022-06-16 17:17 | Emergency (ER) | payer MEDICARE, BC, SELFPAY ==
[2022-06-16 17:20] VITALS: BP 113/69; PULSE 74; RESP 20; TEMP 36.6; BMI 36.6
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
[2022-06-16] MEDS: LORazepam 1 MG TABLET PO (17:41)
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
--- OUTSIDE RECORDS SUMMARY | 2022-06-16 17:55 | XMS_ITS | Clinical Summary ---
:1975 Author Organization [facility] Address [address] [place] [address] Care Team Providers Name Role Phone [facility] Unavailable [phone] Mar Alfaro DO Primary Care Provider Allergies [...] Comments Blood Pressure 138/86 08/29/2021 7:59 AM VAT HOUSE LABORER Pulse 89 08/29/2021 7:59 AM VAT HOUSE LABORER Temperature 37 ??C (98.6 ??F) 08/29/2021 7:59 AM VAT HOUSE LABORER Respiratory Rate 18 08/29/2021 7:59 AM VAT HOUSE LABORER Oxygen Saturation 96% 08/29/2021 7:59 AM VAT HOUSE LABORER Inhaled Oxygen Concentration - - Weight 104 kg (229 lb 3.2 oz) 08/27/2021 3:37 PM VAT HOUSE LABORER Height 157.5 cm (5' 2) 08/27/2021 3:37 PM VAT HOUSE LABORER Body Mass Index 41.92 08/27/2021 3:37 PM VAT HOUSE LABORER Plan of Treatment Health Maintenance Due Date [...] Address Typ e / Group Dates [employer] [place] [id number] 2019-Pres [phone] [address] to/[employer] [employer] [place] [address] [place] [address] MEDICARE MEDICARE [id number] 2021-Pre [address] Medicare PART A & B sent [place] [address] BLUE CROSS BCBS PMAP [id number] 2019-Pres [phone] [address] [place] [address] Key Peres Third Republican Self 1975 [address] Liability (Home) [place] [id number] Key Peres Personal/Family Self 1975 [address] (Home) [place] [phone] Advance Directives For more information, please contact: [phone] Latest Code Status on File Code Status Date Activated Date Inactivated Comments Full Code 08/26/2021 10:48 PM 08/29/2021 5:28 PM How was code status determined? Patient Full Code 03/15/2013 11:28 AM 07/09/2021 7:18 AM How was code status determined? Previous Documentation Care Teams Investment Banking Associate Relationship Specialty [facility] Date [facility] [address] [place] [address] Mar Alfaro DO PCP - General Family Medicine 07/09/21 [address] [place] [address]
--- OUTSIDE RECORDS SUMMARY | 2022-06-16 17:55 | XMS_ITS | Encounter Summary ---
:1975 Author Organization [facility] Address [address] [place] [address] Care Team Providers Name Role Phone Daya Galicia MD Primary Care Provider Jesse Syed [facility] Unavailable Unavailable Reason for Referral (Routine) - Auth-No PA/Ref Req Specialty Diagnoses / Procedures Referred By Contact Refer red To Contact Diagnoses Left shoulder pain Shoulder weakness TBI (traumatic brain injury) César Tirado NP Procedures MRI SHOULDER LT W/O CONTRAST [address] [place], [place] [address] Referral ID Status Reason Start Date Expiration Date Visits V isits Requested Authorized [id number] Auth-No 07/23/2013 1 1 PA/Ref Req L SECRETARY Reason for Visit (Routine) - Auth-No PA/Ref Req Specialty Diagnoses / Procedures Referred By Contact Refer red To Contact Diagnoses Left shoulder pain Shoulder weakness TBI (traumatic brain injury) César Tirado NP Procedures MRI SHOULDER LT W/O CONTRAST [address] [place], [place] [address] Referral ID Status Reason Start Date Expiration Date Visits V isits Requested Authorized [id number] Auth-No 07/23/2013 1 1 PA/Ref Req Encounter Details Date Type Department Care Team Description 07/27/2013 Hospital Encounter MRI [address] [place], [place] [address] Social History Tobacco Use Types [...] jesse ulder pain Results for this CON LEGAL SECRETARY Shoulder weaknes s procedure are in TBI (traumatic brain the res ults injury) (HCC) section. documented in this encounter Results MRI SHOULDER LT W/O CONTRAST (07/27/2013 11:20 AM LEGAL SECRETARY) Anatomical Region Laterality Modality Extremity Magnetic Resonance Specimen (Source) Anatomical Collection Method Collection Time Re ceived Time Location / / Volume Laterality 07/27/2013 11:40 AM LEGAL SECRETARY Impressions 07/30/2013 8:21 AM LEGAL SECRETARY IMPRESSION: Mild bursal surface tendinopathy of the rotator cuff tendons. ??No full-thickness rotator cuff tear. Narrative 07/30/2013 8:21 AM LEGAL SECRETARY EXAM : MRI of the LEFT SHOULDER [...] consciousness documented in this encounter Care Teams Changer Fixer Relationship Specialty Start Date End Date Daya Galicia MD PCP - General 07/19/13 07/08/21 [address] [place] [address] Jesse Syed PCP - Primary Care Clinic 07/08/21 Rehabilitation documented as of this encounter
--- OUTSIDE RECORDS SUMMARY | 2022-06-16 17:55 | XMS_ITS | Encounter Summary ---
:1975 Author Organization [facility] Address [address] [place] [address] Care Team Providers Name Role Phone [facility], [facility] Unavailable [phone] Mar Alfaro DO Primary Care Provider Reason for Visit Reason Comments Confusion memory loss Inpatient Admission Specialty Diagnoses / Procedures Referred By Contact Refer red To Contact Diagnoses Seizure (HCC) Referral ID Status Reason Start Date Expiration Date Visits Requ ested Visits Authorized [id number] 1 1 Encounter Details Date Type Department Care Team Description 08/25/2021 Emergency [facility] Shivam Carrillo MD Hospital Emergency [address] Department [address] [place] [address] [place] [address] [phone] Social History Tobacco Use Types Packs/Day Years [...] with No / Unsure 08/25/2021 4:25 PM CARDIOLOGY RN someone who was confirmed or suspected to have Coronavirus / COVID-19? documented as of this encounter Last Filed Vital Signs Vital Sign Reading Time Taken Comments Blood Pressure 118/47 08/25/2021 10:31 PM CARDIOLOGY RN Pulse 78 08/25/2021 10:31 PM CARDIOLOGY RN Temperature 36.9 ??C (98.4 ??F) 08/25/2021 10:31 PM CARDIOLOGY RN Respiratory Rate 15 08/25/2021 10:31 PM CARDIOLOGY RN Oxygen Saturation 100% 08/25/2021 10:31 PM CARDIOLOGY RN Inhaled Oxygen Concentration - - Weight - - Height - - Body Mass Index - - documented in this encounter Discharge Instructions Discharge InstructionsEzra Carrillo MD - 08/25/2021 10:26 PM CST 1. Follow-up with primary care physician for medication review. Until that time keep a close watch on your medications. IOLOGY RN documented in this encounter Medications at Time [...] remember names of other pts in facility. [place] anxious. Denies dizzines, headache. hand grasp equal, no facial droop. IOLOGY RN Erza Carrillo MD - 08/25/2021 9:02 PM CST CHIEF COMPLAINT: Confusion HPI: Initial history obtained at 9:02 PM 08/25/21. History is limited secondary to the patient's confusion. History provided by the patient and the patient's house nurse. Key Peres is a 46 y.o. female [...] SOCIAL HISTORY: The patient presents with her house nurse. The patient resides at a sober living [...] accurate. Ezra Carrillo MD 9:02 PM 08/25/21 [facility] EMERGENCY DEPARTMENT IOLOGY RN Dary Ryan - 08/25/2021 4:27 PM CST Pt states she has severe mental issues from a TBI. states she has severe forgetfulness and feels lost sometimes. Reports today her memory issues seem worse and have all day since waking up this morning. Denies being suicidal or homicidal. History of depression and anxiety. Denies any new trauma. Pt moving all extremities. IOLOGY RN documented in this encounter Plan of Treatment Not on filedocumented as of this encounter Procedures Procedure Name Priority Date/Time Associated Comments Diagnosis MICROSCOPIC UA ONLY STAT 08/25/2021 9:29 PM Re sults for this CARDIOLOGY RN procedure are i n the results section. BASIC METAB PROFILE STAT 08/25/2021 9:13 PM Re sults for this CARDIOLOGY RN procedure are i n the results section. CBC/DIFF STAT 08/25/2021 9:13 PM Results f or this CARDIOLOGY RN procedure are i n the results section. documented in this encounter Results (ABNORMAL) UA - micro (Lab Only) (08/25/2021 9:29 PM CARDIOLOGY RN) Patholo gist Method Time Signature RBC-UA Occasional None 08/25/2021 [facility] Seen, 10:02 PM [facility] Occasiona LABORATORY l, 1-2 /hpf WBC-UA MICRO Occasional None 08/25/2021 [facility] Seen, 10:02 PM [facility] Occasiona LABORATORY l, Few, 1-4 /hpf BACTERIA Present (A) Absent, 08/25/2021 [facility] None Seen 10:02 PM [facility] LABORATORY SQUAM Many (A) None Seen 08/25/2021 [facility] EPITHELIAL /lpf 10:02 PM [facility] LABORATORY Specimen Anatomical Collection Method Collection Time Receive d Time (Source) Location / / Volume Laterality Urine specimen URINE SPECIMEN / 08/25/2021 9:29 PM 9:34 (specimen) Unknown CARDIOLOGY RN PM CARDIOLOGY RN Ezra Carrillo MD URINE ORDERABLE Performing Organization Address City/State/ZIP Code Phon e Number [facility] [address] [place] [address] LABORATORY (ABNORMAL) Basic Metabolic Profile (08/25/2021 9:13 PM CARDIOLOGY RN) athologist Signature SODIUM 138 136 - 145 [facility] 08/25/2021 [facility] mmol/L ANALYZER 10:02 PM [facility] LABORATORY POTASSIUM 3.9 3.4 - 5.1 [facility] 08/25/2021 [facility] mmol/L ANALYZER 10:02 PM [facility] LABORATORY Comment: Interpret with caution, specime n slightly hemolyzed. Results may be affected CHLORIDE 103 98 - 108 [facility] 08/25/2021 10:02 [facility] mmol/L ANALYZER PM [facility] LABORATORY CARBON DIOXIDE 28 20 - 31 [facility] 08/25/2021 10:02 [facility] mmol/L ANALYZER PM [facility] LABORATORY BUN (UREA NITRO) 8 (L) 9 - 23 mg/dL [facility] 08/25/2021 10:02 [facility] ANALYZER PM CARDIOLOGY RN HEALTH LABORATORY CREATININE <0.10 (L) 0.50 - 1.00 [facility] 08/25/2021 10:02 [facility] mg/dL ANALYZER PM [facility] LABOR[facility] Comment: Unable to calculate EGFR due to low creatinine result. GLUCOSE 103 74 - 106 [facility] 08/25/2021 10:[address] [facility] mg/dL ANALYZER PM [facility] LABORATORY CALCIUM, SERUM 10.1 8.7 - 10.4 [facility] 08/25/2021 10:02 [facility] mg/dL ANALYZER PM [facility] LABORAT[facility] ANION GAP 7.0 0.0 - 15.0 [facility] 08/25/2021 10:[address] [facility] mmol/L ANALYZER PM [facility] LABOR[facility] Specimen Anatomical Collection Method Collection Time Receive d Time (Source) Location / / Volume Laterality Blood 08/25/2021 9:13 PM 9:21 CARDIOLOGY RN PM CARDIOLOGY RN Ezra Carrillo MD CHEMISTRY ORDERABLE Performing Organization Address City/State/ZIP Code Phon e Number [facility] [address] [place] [address] LABORATORY (ABNORMAL) CBC w/diff (08/25/2021 9:13 PM CARDIOLOGY RN) [facility] gist Method Time Signature WBC 9.3 4.3 - 10.8 08/25/2021 [facility] K/uL 9:25 PM [facility] LABORATORY RBC 5.42 (H) 4.20 - 08/25/2021 [facility] 5.40 M/uL 9:25 PM [facility] LABORATORY HEMOGLOBIN 15.0 12.0 - 08/25/2021 [facility] 16.0 gm/dL 9:25 PM [facility] LABORATORY HEMATOCRIT 45.7 36.0 - 08/25/2021 [facility] 48.0 % 9:25 PM [facility] LABORATORY MCV 84 80 - 100 08/25/2021 [facility] fl 9:25 PM [facility] LABORATORY MCH 28 27 - 33 pg 08/25/2021 [facility] 9:25 PM [facility] LABORATORY MCHC 33 33 - 36 08/25/2021 [facility] gm/dL 9:25 PM [facility] LABORATORY RDW 15.0 (H) 11.5 - 08/25/2021 [facility] 14.5 % 9:25 PM CARDIOLOGY RN HEALTH LABORATORY PLATELET COUNT 380 150 - 400 08/25/2021 [facility] K/UL 9:25 PM CARDIOLOGY RN HEALTH LABORATORY MPV 10.6 6.5 - 12 08/25/2021 [facility] 9:25 PM CARDIOLOGY RN [facility] LABORATORY PMN % 68.8 % 08/25/2021 [facility] 9:25 PM [facility] LABORATORY IG% 0.2 <=1.0 % 08/25/2021 [facility] 9:25 PM CARDIOLOGY RN HEALTH LABORATORY LYMPH % 24.1 % 08/25/2021 [facility] 9:25 PM CARDIOLOGY RN HEALTH LABORATORY MONO % 5.4 % 08/25/2021 [facility] 9:25 PM CARDIOLOGY RN [facility] LAB[facility]AT[facility] EOS % 0.9 % 08/25/2021 [facility] 9:25 PM CARDIOLOGY RN [facility] LABORATORY BASO % 0.6 % 08/25/2021 [facility] 9:25 PM CARDIOLOGY RN HEALTH LABORATORY PMN ABSOLUTE 6.43 1.80 - 08/25/2021 [facility] 7.80 K/uL 9:25 PM CARDIOLOGY RN HEALTH LABORATORY IG ABSOLUTE 0.02 K/uL 08/25/2021 [facility] 9:25 PM CARDIOLOGY RN HEALTH LABORATORY LYMPH ABSOLUTE 2.25 1.00 - 08/25/2021 [facility] 4.00 K/uL 9:25 PM CARDIOLOGY RN HEALTH LABORATORY MONO ABSOLUTE 0.50 0.00 - 08/25/2021 [facility] 1.00 K/uL 9:25 PM CARDIOLOGY RN HEALTH LABORATORY EOS ABSOLUTE 0.08 0.00 - 08/25/2021 [facility] 0.45 K/uL 9:25 PM CARDIOLOGY RN HEALTH LABORATORY BASO ABSOLUTE 0.06 0.00 - 08/25/2021 [facility] 0.20 K/uL 9:25 PM [facility] LABORATORY NUCL RBC % 0.0 0.0 - 0.0 08/25/2021 [facility] /100 WBC 9:25 PM CARDIOLOGY RN [facility] LAB[facility] NUCL RBC 0.00 0.00 - 08/25/2021 [facility] ABSOLUTE 0.00 K/uL 9:25 PM CARDIOLOGY RN HEALTH LABORATORY Specimen Anatomical Collection Method Collection Time Receive d Time (Source) Location / / Volume Laterality Blood 08/25/2021 9:13 PM 9:21 CARDIOLOGY RN PM CARDIOLOGY RN Ezra Carrillo MD HEMATOLOGY ORDERABLE Performing Organization Address City/State/ZIP Code Phon e Number [facility] [address] [phone] LABORATORY documented in this encounter Visit Diagnoses Diagnosis Confusion - Primary Unspecified psychosis documented in this encounter Care Teams Blending Technician Relationship Specialty Start Date [facility] [address] [place] [place] [address] Mar Alfaro DO PCP - General Family Medicine 07/09/21 [address] [place] [address] documented as of this encounter
--- OUTSIDE RECORDS SUMMARY | 2022-06-16 17:55 | XMS_ITS | Encounter Summary ---
:1975 Author Organization [facility] Address [address] [place] [address] Care Team Providers Name Role Phone [facility] Unavailable [phone] Mar Alfaro DO Primary Care Provider Encounter [...] with No / Unsure 08/26/2021 3:30 PM TRAVEL CONSULTANT someone who was confirmed or suspected to have Coronavirus / COVID-19? documented as of this encounter Plan of Treatment Not on filedocumented as of this encounter Visit Diagnoses Not on filedocumented in this encounter Additional Health Concerns Infection Onset Date Last Indicated Resolved Time COVID-19/Influenza Rule-Out 08/26/2021 08/26/202108/09 8:53 AM TRAVEL CONSULTANT documented as of this encounter Care Teams Global Professional Relationship Specialty Start Date End Date [facility] PCP - Primary Care Clinic [address] [place] [address] [place] [id number] Mar Alfaro DO PCP - General Family Medicine 07/09/21 [address] [place] [address] documented as of this encounter
--- OUTSIDE RECORDS SUMMARY | 2022-06-16 17:55 | XMS_ITS | Encounter Summary ---
:1975 Author Organization [facility] Address [address] [place] [address] Care Team Providers Name Role Phone [facility] Unavailable [phone] Mar Alfaro DO Primary Care Provider Encounter [...] with No / Unsure 08/25/2021 4:25 PM WOMEN DESIGNER someone who was confirmed or suspected to have Coronavirus / COVID-19? documented as of this encounter Plan of Treatment Not on filedocumented as of this encounter Visit Diagnoses Not on filedocumented in this encounter Care Teams Costume Shop Coordinator Relationship Specialty Start Date End Date [facility] PCP - Primary Care Clinic [place] [address] [place] [address] Mar Alfaro DO PCP - General Family Medicine 07/09/21 [address] [place] [address] documented as of this encounter
--- OUTSIDE RECORDS SUMMARY | 2022-06-16 17:55 | XMS_ITS | Encounter Summary ---
:1975 Author Organization [facility] Address [address] [place] [address] Care Team Providers Name Role Phone [facility], [facility] Unavailable [phone] Mar Alfaro DO Primary Care Provider Reason for Visit Reason Comments Confusion Inpatient Admission Specialty Diagnoses / Procedures Referred By Contact Refer red To Contact Diagnoses Seizure (HCC) Referral ID Status Reason Start Date Expiration Date Visits Requ ested Visits Authorized [id number] 1 1 Encounter Details Date Type Department Care Team Description 08/26/2021 - Hospital Encounter W5 Rhys Bullock MD [address] [facility] [address] [place], [place] [id number] Seizure (HCC) 08/29/[address] [place] [address]-Hospitalist [facility] [place] [address] Jakob Jeffery MD [address] [place] [address] Adele [place] [address] [place] [id number] Social History Tobacco Use Types Packs/Day Years [...] with No / Unsure 08/26/2021 3:30 PM PLASMA PROCESSING TECHNICIAN someone who was confirmed or suspected to have Coronavirus / COVID-19? documented as of this encounter Last Filed Vital Signs Vital Sign Reading Time Taken Comments Blood Pressure 138/86 08/29/2021 7:59 AM PLASMA PROCESSING TECHNICIAN Pulse 89 08/29/2021 7:59 AM PLASMA PROCESSING TECHNICIAN Temperature 37 ??C (98.6 ??F) 08/29/2021 7:59 AM PLASMA PROCESSING TECHNICIAN Respiratory Rate 18 08/29/2021 7:59 AM PLASMA PROCESSING TECHNICIAN Oxygen Saturation 96% 08/29/2021 7:59 AM PLASMA PROCESSING TECHNICIAN Inhaled Oxygen Concentration - - Weight 104 kg (229 lb 3.2 oz) 08/27/2021 3:37 PM PLASMA PROCESSING TECHNICIAN Height 157.5 cm (5' 2) 08/27/2021 3:37 PM PLASMA PROCESSING TECHNICIAN Body Mass Index 41.92 08/27/2021 3:37 PM PLASMA PROCESSING TECHNICIAN documented in this encounter Discharge Summaries Ankit [...] with Specialist: with neurologist prn DISCHARGE TO: [facility] CONSULTS: Neurology HOSPITAL TESTS, IMAGING: IMAGING: [...] 5.0 - 8.0 Final ? ? Specific [place], UA 08/26/2021 >=1.030* 1.015 - 1.025 Final [...] with patient, nurse. Ankit Johnson MD Hospitalist [phone] MA PROCESSING TECHNICIAN documented in this encounter Discharge Instructions Discharge Instr - ActivityAnkit Johnson MD - 08/28/2021 3:09 PM [address] Do not drive or operate for 3 months till okay by PCP due to seizures MA PROCESSING TECHNICIAN Discharge Instr - Yassine Johnson MD - 08/28/2021 3:09 PM CST low salt diet MA PROCESSING TECHNICIAN documented in this encounter Medications at Time [...] 08/29/2021 11:22 AM CST Key Peres 1975 [id number] P: Discharge A: Discharged via wheelchair to fpc at 1115 escorted by executive director of nursing I: Discharge information and arrangements included: review of written discharge instructions . Pt vape pen returned from security. R:Patient expressed understanding of information. MA PROCESSING TECHNICIAN Ankit Johnson MD - 08/29/2021 9:58 AM CST Patient got discharged today as staff was unable to find which location patient was coming from----eventually all figured out and patient discharge with no concerns No billing as patient not seen MA PROCESSING TECHNICIAN Zack Sneed RN - 08/29/2021 12:56 AM [...] info or even name of sober home. MA PROCESSING TECHNICIAN Sonia Moreno RN - 08/28/2021 6:02 PM [...] 190/124, PRN hydralazine added and given x1. CLINICAL IMPLEMENTATION SPECIALIST BP meds added as well. D/c order [...] info or even name of sober home. MA PROCESSING TECHNICIAN Eli West APRN, SHOVEL LOGGER - 08/28/2021 12:37 PM CST NEUROLOGY PROGRESS [...] reconsider. PLAN: 1.OK to DC back to fpc 2. She does not drive so it's a non-issue post seizure 3. Dicussed caution with standing water (tub or pool) and activities off the ground. Time: 15 minutes Eli West, CAREN, MEDICAL CARE ADMINISTRATOR, SHOVEL LOGGER MA PROCESSING TECHNICIAN Raysa Martines RN - 08/28/2021 12:59 AM CST Med-Surg Care Progression Note Type: Shift to shift summary [id number] ?? Length of stay: 2 days Code [...] The order for PIV was placed. The retail shift supervisor RN tried three times, but wasn't able [...] Invasive Devices: PIV D- Discharge: TBD, from [facility] MA PROCESSING TECHNICIAN Sonia Moreno RN - 08/27/2021 6:48 PM [...] Invasive Devices: PIV D- Discharge: TBD, from [facility] MA PROCESSING TECHNICIAN Ankit Johnson MD - 08/27/2021 8:55 AM [...] pH Urine 5.5 5.0 - 8.0 Specific [place], UA >=1.030 (A) 1.015 - 1.025 Urobilinogen, [...] SIGNED BY DR. OLEGARIO Johnson MD Hospitalist [phone] MA PROCESSING TECHNICIAN Virginia Rodriguez RN - 08/27/2021 6:15 AM [...] Invasive Devices: PIV D- Discharge: TBD, from [facility] MA PROCESSING TECHNICIAN documented in this encounter H&P Notes Jakob Wills MD - 08/26/2021 9:17 PM CST Images from the original note were not included. HOSPITALIST DIVISION ADMISSION HISTORY AND PHYSICAL Patient Name: Key Peres Address: [address] [place] [id number] Age: 46 y.o. Sex: female Admission Date/Time: [...] reviewed the patient's new imaging test results. MA PROCESSING TECHNICIAN documented in this encounter Procedure Notes Yamile [...] toxic, metabolic conditions, diffuse structural cerebral abnormalities MA PROCESSING TECHNICIAN documented in this encounter Consult Notes Buddy Ortega MD - 08/27/2021 10:44 AM CSTAssociated Order(s): CONSULT NEUROLOGY REPORT OF CONSULTATION Patient Name: Key Peres : 1975 Admission Date/Time: 08/26/2021 5:49 PM Primary Care Physician: Mar Alfaro DO Consulting Physician: Eli West APRN, SHOVEL LOGGER REASON FOR ADMISSION/CONSULTATION We are being asked [...] Ref Range: 5.0 - 8.0 5.5 Specific [place], UA Latest Ref Range: 1.015 - 1.025 [...] patient's care. Time: 80 minutes Eli West,DNP, MEDICAL CARE ADMINISTRATOR, SHOVEL LOGGER ATTENDING ADDENDUM: I have personally seen and [...] visit was 55 minutes and included: Direct [id number] time, Review of records, Coordination of care and Documentation of visit. Buddy Ortega MD Neurology, Vascular Neurology MA PROCESSING TECHNICIAN documented in this encounter Nursing Notes Zack [...] Prevent Slipping Medication: Standard Interventions in Place MA PROCESSING TECHNICIAN Luz Liao RN - 08/28/2021 10:48 PM CST [id number] Problem: Confusion - Acute, Actual or Risk [...] No BMI 41.92 kg/m?? Luz Liao, RN MA PROCESSING TECHNICIAN Jesusita Chavis - 08/28/2021 9:17 AM CST Discharge Planning Initial Assessment Patients chart reviewed. Patient discussed in rounds. Admitting diagnoses: Seizure (HCC) [R56.9] Admitted from: Other (Comment) Sober Housing Prior: Living Arrangements: Alone Support Systems: Children;Family members Mother (Alyson Cedeño p: [phone]) Father (Chas Cedeño p: [phone]) Primary decision maker: Patient DME prior to [...] SW attempted to call Mother Alyson (p: [phone]) and . SW obtained information from [facility] everywhere. Note from 04/06/2021 [facility] (p: [phone]). TIANNA called facility and spoke with clinical supervisor advertising dispatch clerks (Jerrica) who advised pt no longer resides [...] from mother (Alyson) advising she is in [place] till Tuesday and requested SW call pt's father (Chas). Alyson did clarify pt was indeed admitted from sober housing but did not have the phone number. COVID Test Result: SARS-CoV-2 RNA by PCR Date Value Ref Range Status 08/26/2021 SARS-CoV-2 RNA Not Detected SARS-CoV-2 RNA Not Detected Final Care management will continue to follow. MARCO A Fink, PRODUCTION CLOTH CUTTER 9:18 AM, 08/28/2021 P: [phone] F: [phone] MA PROCESSING TECHNICIAN Raysa Martines RN - 08/28/2021 12:58 AM CST Problem: Injury - Risk of, While Physically Restrained Goal: Absence of injury while physically restrained Outcome: Met this shift Problem: Falls/Injury-Risk of Goal: Absence of Falls/Injury Outcome: Met this shift Problem: Confusion - Acute, Actual or Risk of Goal: Maintains/improves cognitive status within limits of condition Outcome: Met this shift MA PROCESSING TECHNICIAN documented in this encounter ED Notes Annemarie Doran - 08/27/2021 1:15 PM CST EEG Note: toter has completed the EEG at this time. MA PROCESSING TECHNICIAN Connie Lovell - 08/26/2021 10:34 PM CST Report given to med surge nurse-pt moved to 24 for dept needs MA PROCESSING TECHNICIAN Connie Lovell - 08/26/2021 10:04 PM CST Pt sleeping, o2 sats dip to 87% RA. Placed on 2L NC O2 and now 93% MA PROCESSING TECHNICIAN Connie Lovell - 08/26/2021 9:30 PM CST Up to BSC with 2 staff assist. Urine sent. Pt able to verbalize needs and follow commands with coaching. Does not remember seizure or why she is here MA PROCESSING TECHNICIAN Bree Montejo RN - 08/26/2021 7:34 PM CST Pt moved to cart 37, report given to RN MA PROCESSING TECHNICIAN Bree Montejo RN - 08/26/2021 6:17 PM CST Pt returns to cart [address] MA PROCESSING TECHNICIAN Bree Montejo RN - 08/26/2021 6:05 PM CST Pt to CT MA PROCESSING TECHNICIAN Rhys Bullock MD - 08/26/2021 5:54 PM [...] confusion. The patient lives at a sober fpc and was sent back to the emergency department today because she was off. Per the triage note, the patient reports increased confusion and migraine headache that started this morning in addition to photosensitivity and nausea. The patient began having a tonic clonic seizure while in the waiting room that was less than 5 minutes and unwitnessed. [facility]. MEDICATIONS: The patient takes: acetaminophen (TYLENOL) [...] HISTORY: The patient lives in a sober fpc. REVIEW OF SYSTEMS: Review of Systems Unable [...] Hours): Indication: confusion Ventricular Rate: 123 QRS [place]: -21 Intervals: SD 169, QRSD 105, QTc 605 Interpretation: Sinus [...] accurate. Rhys Bullock MD 5:54 PM 08/26/21 [facility] MA PROCESSING TECHNICIAN Nory Brady RN - 08/26/2021 5:50 PM CST Pt began having a seizure while waiting in triage. Tonic clonic movements. Brouigt patient to stab 1as a med team. Upon getting to stab room, patient had snoring respirations. MA PROCESSING TECHNICIAN Blayne Mason RN - 08/26/2021 5:36 PM CST Patient complaining of headache in triage. Hyperventilating and complaining of nausea. Spray Mixer gave patient emesis bag and coaching with deep breaths. MA PROCESSING TECHNICIAN Blayne Mason RN - 08/26/2021 3:31 PM CST Patient presents to ED by EMS for complaint of increased confusion, migraine headache that started this morning. She reports she lives in a fpc for ETOH treatment. Hx of TBI. States she has a PRN for migraines but has not taken it. Also complains of photosensitivity and nausea. MA PROCESSING TECHNICIAN Ana Ureña RN - 08/26/2021 3:15 PM CST Pt arrived to triage via [facility]. Pt was seen here last evening for increased confusion. Pt lives at /sober home, today pt was off so she was sent back for further evaluation. BS 134. VSS. MA PROCESSING TECHNICIAN documented in this encounter Miscellaneous Notes Med Reconciliation - Anastasiya Farah, Pharm D - 08/27/2021 1:52 PM CST PHARMACY MEDICATION RECONCILIATION NOTE MEDICATION RECONCILIATION on admission by pharmacy has been completed. Prior to admission medications were reviewed with pharmacy fill history, [facility] pharmacist [facility] medication list has been updated and reflected in the chart below. Please use the [facility] medication section for ordering home doses during admission. Medication related issues: 1. Patient reported managing her own medications but is confused; unable to contact fpc to confirm. Med rec completed per pharmacy fill history. 2. Confirmed dosing for metoprolol tartrate with pharmacist at [facility]. 3. Added: vitamin D, amlodipine, chlorthalidone, donepezil, [...] Medications: None This patient obtains medications from [id number] [facility] [place] - [address] [address] Pharmacy. Thank you for the opportunity to participate in the care of this patient. Anastasiya Zamudio, PharmD, [facility] Phone #:[phone] Time spent reconciling meds: 30 min Location: NON-face to face encounter (telephone or other means of communication) MA PROCESSING TECHNICIAN documented in this encounter Plan of Treatment Not on filedocumented as of this encounter Procedures Procedure Name Priority Date/Time Associated Comments Diagnosis BASIC METABOLIC PROF Routine 08/29/2021 6:32 Resu lts for MAGNESIUM AM PLASMA PROCESSING TECHNICIAN this procedure are in the results section. CBC Routine 08/29/2021 6:32 Results for (HGB,HCT,WBC,RBC,PLATELE AM PLASMA PROCESSING TECHNICIAN thi s procedure T) are in the results section. ELECTROCARDIOGRAM Routine 08/28/2021 1:32 Results for PM PLASMA PROCESSING TECHNICIAN this procedure are in the results section. POTASSIUM Timed Procedure 08/28/2021 Results for 11:32 AM PLASMA PROCESSING TECHNICIAN this procedure are in the results section. BASIC METABOLIC PROF STAT 08/28/2021 5:23 Resu lts for MAGNESIUM AM PLASMA PROCESSING TECHNICIAN this procedure are in the results section. CBC STAT 08/28/2021 5:23 Results for (HGB,HCT,WBC,RBC,PLATELE AM PLASMA PROCESSING TECHNICIAN thi s procedure T) are in the results section. MRI BRAIN LIMITED W/O Routine 08/27/2021 Result s for CON 10:09 PM PLASMA PROCESSING TECHNICIAN this procedure are in the results section. POTASSIUM Timed Procedure 08/27/2021 5:13 Results f or PM PLASMA PROCESSING TECHNICIAN this procedure are in the results section. EEG AWAKE & DROWSY DWAIN 08/27/2021 1:13 Result s for PM PLASMA PROCESSING TECHNICIAN this procedure are in the results section. BASIC METABOLIC PROF STAT 08/27/2021 6:22 Resu lts for MAGNESIUM AM PLASMA PROCESSING TECHNICIAN this procedure are in the results section. LACTIC ACID STAT 08/27/2021 6:22 Results for AM PLASMA PROCESSING TECHNICIAN this procedure are in the results section. GASES VENOUS PERIPHERAL STAT 08/27/2021 6:22 R esults for AM PLASMA PROCESSING TECHNICIAN this procedure are in the results section. CBC STAT 08/27/2021 6:22 Results for (HGB,HCT,WBC,RBC,PLATELE AM PLASMA PROCESSING TECHNICIAN thi s procedure T) are in the results section. LACTIC ACID STAT 08/26/2021 9:50 Results for PM PLASMA PROCESSING TECHNICIAN this procedure are in the results section. BASIC METAB PROFILE STAT 08/26/2021 9:50 Resul ts for PM PLASMA PROCESSING TECHNICIAN this procedure are in the results section. URINALYSIS MICROSCOPY STAT 08/26/2021 9:35 Res ults for (LAB USE ONLY) PM PLASMA PROCESSING TECHNICIAN this procedur e are in the results section. URINALYSIS MACROSCOPIC STAT 08/26/2021 9:35 Re sults for W/ MICROSCOPY, IF PM PLASMA PROCESSING TECHNICIAN this proce dure INDICATED (DOES NOT INC are in the CULTURE) results section. SARS-COV-2 AND INFLUENZA STAT 08/26/2021 7:01 Results for A/B BY ELIZABETH PCR PM PLASMA PROCESSING TECHNICIAN this proced ure are in the results section. ELECTROCARDIOGRAM STAT 08/26/2021 6:31 Results for PM PLASMA PROCESSING TECHNICIAN this procedure are in the results section. CT HEAD W/O CON W/O 3D STAT 08/26/2021 6:21 Re sults for PM PLASMA PROCESSING TECHNICIAN this procedure are in the results section. XR CHEST AP PORT STAT 08/26/2021 5:59 Results for PM PLASMA PROCESSING TECHNICIAN this procedure are in the results section. EXTRA TUBE-EDTA STAT 08/26/2021 5:57 PM PLASMA PROCESSING TECHNICIAN EXTRA TUBE-COAG STAT 08/26/2021 5:57 PM PLASMA PROCESSING TECHNICIAN EXTRA TUBE-SST (LAB USE STAT 08/26/2021 5:57 ONLY) PM PLASMA PROCESSING TECHNICIAN ALCOHOL (ETOH) Add On 08/26/2021 5:57 Results fo r PM PLASMA PROCESSING TECHNICIAN this procedure are in the results section. LACTIC ACID STAT 08/26/2021 5:57 Results for PM PLASMA PROCESSING TECHNICIAN this procedure are in the results section. BASIC METAB PROFILE STAT 08/26/2021 5:57 Resul ts for PM PLASMA PROCESSING TECHNICIAN this procedure are in the results section. CBC/DIFF STAT 08/26/2021 5:57 Results for PM PLASMA PROCESSING TECHNICIAN this procedure are in the results section. EXTRA TUBE PST STAT 08/26/2021 5:57 PM PLASMA PROCESSING TECHNICIAN POCT LACTIC ACID STAT 08/26/2021 5:55 Results for PM PLASMA PROCESSING TECHNICIAN this procedure are in the results section. EXTRA TUBE-BLOOD BANK STAT 08/26/2021 5:55 PM PLASMA PROCESSING TECHNICIAN POCT CREATININE Routine 08/26/2021 5:55 Results f or PM PLASMA PROCESSING TECHNICIAN this procedure are in the results section. POCT VBG/NA/K/GL STAT 08/26/2021 5:55 Results for PM PLASMA PROCESSING TECHNICIAN this procedure are in the results section. POCT CALCIUM, IONIZED STAT 08/26/2021 5:55 Res ults for PM PLASMA PROCESSING TECHNICIAN this procedure are in the results section. POCT CHLORIDE STAT 08/26/2021 5:55 Results for PM PLASMA PROCESSING TECHNICIAN this procedure are in the results section. documented in this encounter Results (ABNORMAL) Basic Metabolic Profile Magnesium (08/29/2021 6:32 AM [facility])Only the most recent of3 resultswithin the time period is included. Analysis Performed At Patho logist Time Signature SODIUM 142 136 - 145 [facility] [place] 2] mmol/L ANALYZER 7:16 AM [facility] POTASSIUM 3.2 (L) 3.4 - 5.1 [facility] 08[facility]2021 [facility] [place] 2] mmol/L ANALYZER 7:16 AM [facility] CHLORIDE 108 98 - 108 [facility] 08/29/2021 [facility] [place] 2] mmol/L ANALYZER 7:16 AM [facility] CARBON DIOXIDE 25 20 - 31 [facility] 08/29/2021 [facility] [place] 2] mmol/L ANALYZER 7:16 AM [facility] BUN (UREA 9 9 - 23 [facility] 08/29/2021 [facility] [place]NOTE 2] NITRO) mg/dL ANALYZER 7:16 AM [facility] CREATININE 0.79 0.50 - [facility] 08/29/2021 [facility] [place]NOTE 2] 1.00 ANALYZER 7:16 AM [facility] mg/dL LABORATORY EST GFR >60.00 >60.00 [facility] 08/29/2021 [facility] [place]NOTE 2] (CKD-EPI) mL/min ANALYZER 7:16 AM [facility] EST GFR IF >60.00 >60.00 [facility] 08/29/2021 [facility] [place]NOTE 2] AM mL/min ANALYZER 7:16 AM [facility] GLUCOSE 94 74 - 106 [facility] 08/29/2021 [facility] [place]NOTE 2] mg/dL ANALYZER 7:16 AM [facility] CALCIUM, SERUM 9.3 8.7 - [facility] 08/29/2021 [facility] [place]NOTE 2] 10.4 ANALYZER 7:16 AM [facility] mg/dL LABORATORY ANION GAP 9.0 0.0 - [facility] 08/29/2021 [facility] [place]NOTE 2] 15.0 ANALYZER 7:16 AM [facility] mmol/L LABORATORY Magnesium 1.9 1.6 - 2.6 [facility] 08/29/2021 [facility] [place]NOTE 2] mg/dL ANALYZER 7:16 AM [facility] Specimen Anatomical Collection Method Collection Time Receive d Time (Source) Location / / Volume Laterality Blood 08/29/2021 6:32 AM 01/22/202 2 6:40 PLASMA PROCESSING TECHNICIAN AM PLASMA PROCESSING TECHNICIAN Jakob Wills MD CHEMISTRY ORDERABLE Performing Organization Address City/State/ZIP Code Phon e Number [facility] [address] [address] LABORATORY (ABNORMAL) CBC (HGB,HCT,WBC,RBC,Platelet) (08/29/2021 6:32 AM PLASMA PROCESSING TECHNICIAN)Only the most recent of3 resultswithin the time period is included. [facility] Method Time Signature WBC 8.8 4.3 - 10.8 08/29/2021 [facility] [place]NOTE 2[place] K/uL 6:48 AM [facility] RBC 4.84 4.20 - 08/29/2021 [facility] [place]NOTE 2] 5.40 M/uL 6:48 AM [facility] HEMOGLOBIN 13.6 12.0 - 08/29/2021 [facility] [place]NOTE 2] 16.0 gm/dL 6:48 AM [facility] HEMATOCRIT 40.7 36.0 - 08/29/2021 [facility] [place]NOTE 2] 48.0 % 6:48 AM [facility] MCV 84 80 - 100 08/29/2021 [facility] [place]NOTE 2] fl 6:48 AM [facility] MCH 28 27 - 33 pg 08/29/2021 [facility] [place]NOTE 2] 6:48 AM [facility] MCHC 33 33 - 36 08/29/2021 [facility] [place]NOTE 2] gm/dL 6:48 AM [facility] RDW 15.4 (H) 11.5 - 08/29/2021 [facility] [place]NOTE 2] 14.5 % 6:48 AM [facility] PLATELET COUNT 301 150 - 400 08/29/2021 [facility] [place]NOTE 2] K/UL 6:48 AM [facility] MPV 10.4 6.5 - 12 08/29/2021 [facility] [place]NOTE 2] 6:48 AM [facility] Specimen Anatomical Collection Method Collection Time Receive d Time (Source) Location / / Volume Laterality Blood 08/29/2021 6:32 AM 2 6:40 PLASMA PROCESSING TECHNICIAN AM PLASMA PROCESSING TECHNICIAN Jakob Wills MD HEMATOLOGY ORDERABLE Performing Organization Address City/State/ZIP Code Phon e Number [facility] [address] [place] [address] LABORATORY EKG (08/28/2021 1:32 PM PLASMA PROCESSING TECHNICIAN)Only the most recent of2 resultswithin the time period is included. athologist Signature EKG [facility] Comment: ?N orth [facility] ? Test Date: ?2021-08-28 Pat Name: ? KEY PERES ? Department: ?? 5NW ?Room: ? 520 Gender: ? F ?Research Professor: ?? [id number] : ?1975 ? Requested By: ANKIT JOHNSON MD Order Number: [id number] ?Reading MD: ?? Oscar Hirsch MD ? Measurements Intervals ?[place] ? Rate: ? 103 ?P: ?45 SD: ? 164 ?QRS: ?-10 QRSD: ? 103 [...] AGE Electronically Signed On 08-31-2021 10:16 :00 PLASMA PROCESSING TECHNICIAN by Oscar Hirsch MD Specimen (Source) Anatomical Collection Method Collection Time Re ceived Time Location / / Volume Laterality 08/28/2021 1:32 PM PLASMA PROCESSING TECHNICIAN Narrative This result has an attachment that is no t available. Ankit Johnson MD EKG ORDERABLE Performing Organization Address City/State/ZIP Code Phon e Number [facility] [address] [place] [address] Potassium, Serum (08/28/2021 11:32 AM PLASMA PROCESSING TECHNICIAN)Only the most recent of2 resultswithin the time period is included. athologist Signature POTASSIUM 3.5 3.4 - 5.1 ATELLICA 08/28/2021 [facility] [place] mmol/L ANALYZER 12:03 PM [facility] Comment: Interpret with caution, specime n slightly hemolyzed. Results may be affected Specimen Anatomical Collection Method Collection Time Receive d Time (Source) Location / / Volume Laterality Blood 08/28/2021 11:32 08/28/2021 AM PLASMA PROCESSING TECHNICIAN 11:41 AM PLASMA PROCESSING TECHNICIAN Raysa Martines RN CHEMISTRY ORDERABLE Performing Organization Address City/State/ZIP Code Phon e Number [facility] [address] [address] LABORATORY MRI BRAIN LIMITED W/O CON (08/27/2021 10:09 PM PLASMA PROCESSING TECHNICIAN) Anatomical Region Laterality Modality Head Magnetic Resonance Specimen (Source) Anatomical Collection Method Collection Time Re ceived Time Location / / Volume Laterality 08/27/2021 10:14 PM PLASMA PROCESSING TECHNICIAN Impressions 08/27/2021 10:18 PM PLASMA PROCESSING TECHNICIAN IMPRESSION: Slight diffuse brain atrophy. No acute a bnormality, and no finding likely to account for seizure. REPORT SIGNED BY DR. Douglas Dalton 08/27/2021 10:18 PM PLASMA PROCESSING TECHNICIAN EXAM: LIMITED MRI SCAN OF BRAIN WITHOUT [...] EEG AWAKE & DROWSY (08/27/2021 1:13 PM PLASMA PROCESSING TECHNICIAN) Anatomical Region Laterality Modality Other Specimen (Source) Anatomical Location Collection Method / Collectio n Time Received Time / Laterality Volume Narrative 08/27/2021 1:03 PM PLASMA PROCESSING TECHNICIAN Yamile Hurd MD ? 08/27/2021 ??1:09 PM [...] diffuse structural cerebral abnormalities ?? Eli West MEDICAL CARE ADMINISTRATOR, SHOVEL LOGGER EEG ORDERABLE Lactic Acid (08/27/2021 6:22 AM PLASMA PROCESSING TECHNICIAN)Only the most recent of3 resultswithin the time period is included. athologist Signature LACTIC ACID 0.9 0.7 - 2.1 08/27/2021 [facility] [place] mmol/L 6:48 AM [facility] Specimen Anatomical Collection Method Collection Time Receive d Time (Source) Location / / Volume Laterality Blood 08/27/2021 6:22 AM 6:33 PLASMA PROCESSING TECHNICIAN AM PLASMA PROCESSING TECHNICIAN Jakob Wills MD CHEMISTRY ORDERABLE Performing Organization Address City/State/ZIP Code Phon e Number [facility] [address] [place] [address] LABORATORY Gases Venous Peripheral (08/27/2021 6:22 AM PLASMA PROCESSING TECHNICIAN) athologist Signature PH VENOUS 7.38 7.30 - 08/27/2021 [facility] [place] 2] 7.40 6:48 AM [facility] 02 SAT VENOUS 79.8 60.0 - 08/27/2021 [facility] [place]NOTE 2] 80.0 % 6:48 AM [facility] PO2 VENOUS 43 35 - 45 mm 08/27/2021 [facility] [place] 2] Hg 6:48 AM [facility] BASE EXCESS 0.8 -3.0 - 2.0 08/27/2021 [facility] [place]NOTE 2] VENOUS mmol/L 6:48 AM [facility] PCO2 VENOUS 45 36 - 51 mm 08/27/2021 [facility] [place]NOTE 2] Hg 6:48 AM [facility] HCO3 VENOUS 26 22 - 29 08/27/2021 [facility] [place]NOTE 2] mmol/L 6:48 AM [facility] Specimen Anatomical Collection Method Collection Time Receive d Time (Source) Location / / Volume Laterality Blood 08/27/2021 6:22 AM 6:33 PLASMA PROCESSING TECHNICIAN AM PLASMA PROCESSING TECHNICIAN Jakob Wills MD CHEMISTRY ORDERABLE Performing Organization Address City/State/ZIP Code Phon e Number [facility] [address] [place] [address] LABORATORY (ABNORMAL) Basic Metabolic Profile (08/26/2021 9:50 PM PLASMA PROCESSING TECHNICIAN)Only the most recent of2 resultswithin the time period is included. Analysis Performed At Patho logist Time Signature SODIUM 140 136 - 145 [facility] 08/26/2021 [facility] [place] mmol/L ANALYZER 10:37 PM [facility] POTASSIUM 3.1 (L) 3.4 - 5.1 [facility] 08/26/2021 [facility] [place]NOTE 2[place] mmol/L ANALYZER 10:37 PM [facility] CHLORIDE 106 98 - 108 [facility] 08/26/2021 [facility] [place] 2] mmol/L ANALYZER 10:37 PM [facility] CARBON DIOXIDE 26 20 - 31 [facility] 08/26/2021 [facility] [place] 2] mmol/L ANALYZER 10:37 PM [facility] BUN (UREA 9 9 - 23 [facility] 08/26/2021 [facility] [place] 2[place] NITRO) mg/dL ANALYZER 10:37 PM [facility] CREATININE 0.93 0.50 - [facility] 08/26/2021 [facility] [place] 2[place] 1.00 ANALYZER 10:37 PM [facility] mg/dL LABORATORY EST GFR >60.00 >60.00 [facility] 08/26/2021 [facility] [place]NOTE 2] (CKD-EPI) mL/min ANALYZER 10:37 PM [facility] EST GFR IF >60.00 >60.00 [facility] 08/26/2021 [facility] [place]NOTE 2] AM mL/min ANALYZER 10:37 PM [facility] GLUCOSE 119 (H) 74 - 106 [facility] 08/26/2021 [facility] [place]NOTE 2] mg/dL ANALYZER 10:37 PM [facility] CALCIUM, SERUM 8.6 (L) 8.7 - [facility] 08/26/2021 [facility] [place]NOTE 2] 10.4 ANALYZER 10:37 PM [facility] mg/dL LABORATORY ANION GAP 8.0 0.0 - [facility] 08/26/2021 [facility] [place]NOTE 2] 15.0 ANALYZER 10:37 PM [facility] mmol/L LABORATORY Specimen Anatomical Collection Method Collection Time Receive d Time (Source) Location / / Volume Laterality Blood 08/26/2021 9:50 PM PLASMA PROCESSING TECHNICIAN 10:11 PM PLASMA PROCESSING TECHNICIAN Rhys Bullock MD CHEMISTRY ORDERABLE Performing Organization Address [facility]/ZIP Code [address] [address] LABORATORY (ABNORMAL) Urinalysis Microscopy (Lab Use Only) (08/26/2021 9:35 PM PLASMA PROCESSING TECHNICIAN) [facility] Method Time Signature WBC-UA MICRO 1-4 None 08/26/2021 [facility] [place]NOTE 2] Seen, 10:58 PM PLASMA PROCESSING TECHNICIAN [facility] LABORATORY l, Few, 1-4 /hpf BACTERIA Present (A) Absent, 08/26/2021 [facility] [place]NOTE 2] None Seen 10:58 PM [facility] SQUAM Few (A) None Seen 08/26/2021 [facility] [place]NOTE 2] EPITHELIAL /lpf 10:58 PM [facility] RBC-UA 3-9 (A) None 08/26/2021 [facility] [place]NOTE 2] Seen, 10:58 PM [facility]ASMA PROCESSING TECH[facility], 1-2 /hpf Specimen Anatomical Collection Method Collection Time Receive d Time (Source) Location / / Volume Laterality Urine specimen 08/26/2021 9:35 PM 022 (specimen) PLASMA PROCESSING TECHNICIAN 10:12 PM PLASMA PROCESSING TECHNICIAN Jakob Wills MD URINE ORDERABLE Performing Organization Address [facility]/[address] [address] LABORATORY (ABNORMAL) Urinalysis Macroscopic w/ Microscopy, if indicated (Does not inc culture) (08/26/2021 9:35 PM PLASMA PROCESSING TECHNICIAN) [facility] Method Time Signature GLUCOSE, UA Negative Negative 08/26/2021 [place] mg/dL 10:58 PM [facility] KETONE, UA 15 (A) Negative 08/26/2021 [place] mg/dL 10:58 PM [facility] BILIRUBIN, UA Negative Negative 08/26/2021 [place] 10:58 PM [facility] PROTEIN, UA 30 (A) Negative 08/26/2021 [place] mg/dL 10:58 PM [facility] LAB[facility] OCCULT BLOOD, Moderate (A) Negative, 08/26/2021 [place] UA Trace 10:58 PM [facility] LAB[facility] WBC ESTERASE, Negative Negative, 08/26/2021 [place] UA Trace 10:58 PM [facility] NITRITE, UA Negative Negative 08/26/2021 [place] 10:58 PM [facility] pH Urine 5.5 5.0 - 8.0 08/26/2021 [place] 10:58 PM [facility] Specific >=1.030 (A) 1.015 - 08/26/2021 [place], UA 1.025 10:58 PM [facility] LAB[facility] Urobilinogen, 0.2 0.2 - 1.0 08/26/2021 [place] UA EU/dL 10:58 PM [facility] Specimen Anatomical Collection Method Collection Time Receive d Time (Source) Location / / Volume Laterality Urine specimen 08/26/2021 9:35 PM 022 (specimen) PLASMA PROCESSING TECHNICIAN 10:12 PM PLASMA PROCESSING TECHNICIAN Jakob Wills MD URINE ORDERABLE Performing Organization Address City/[facility]/ZIP Code Phon e Number [facility] [address] [facility] [place] [address] LABORATORY COVID-19 (PUI) / Influenza (08/26/2021 7:01 PM PLASMA PROCESSING TECHNICIAN) Analysis Performed At Patho logist Time Signature SARS-CoV-2 SARS-CoV-2 SARS-CoV-2 [facility] 08/27/2021 [place] RNA by PCR RNA Not RNA Not 6800 8:53 AM PLASMA PROCESSING TECHNICIAN [facility] Detected Detected [facility] INFLUENZA A Influenza A Influenza A [facility] 08/27/2021 [place] BY ELIZABETH PCR RNA Not RNA Not 6800 8:53 AM PLASMA PROCESSING TECHNICIAN [facility] Detected Detected [facility] INFLUENZA B Influenza B Influenza B [facility] 08/27/2021 [place] BY ELIZABETH PCR RNA Not RNA Not 6800 8:53 AM PLASMA PROCESSING TECHNICIAN [facility] Detected Detected [facility]ER [facility] LAB[facility]ATORY Specimen (Source) Anatomical Collection Method Collection Time Re ceived Time Location / / Volume Laterality Nasopharynx 08/26/2021 7:01 08/26/2021 7 :07 PM PLASMA PROCESSING TECHNICIAN PM PLASMA PROCESSING TECHNICIAN Rhys Bullock MD MICROBIOLOGY ORDERABLE Performing Organization Address City/State/ZIP Code Phon e Number [facility] [address] [place] [address] HEAD (08/26/2021 6:21 PM PLASMA PROCESSING TECHNICIAN) Anatomical Region Laterality Modality Head Computed Tomography Specimen (Source) Anatomical Collection Method Collection Time Re ceived Time Location / / Volume Laterality 08/26/2021 6:15 PM PLASMA PROCESSING TECHNICIAN Impressions 08/26/2021 6:16 PM PLASMA PROCESSING TECHNICIAN IMPRESSION: ?? 1. ??Generalized atrophy and chronic mat rovascular ischemic change. 2. ??No acute intracranial pathology. REPORT SIGNED BY DR. OLEGARIO LOVETT Narrative 08/26/2021 6:16 PM PLASMA PROCESSING TECHNICIAN EXAM: ??CT HEAD W/O CON W/O 3D [...] progressed. ?? BRAIN PARENCHYMA: ??Small amount of lunchroom aide deb microvascular ischemic change in the periventricular [...] ORDERABLE XRAY CHEST PORTABLE (08/26/2021 5:59 PM PLASMA PROCESSING TECHNICIAN) Anatomical Region Laterality Modality Chest Computed Radiography Specimen (Source) Anatomical Collection Method Collection Time Re ceived Time Location / / Volume Laterality 08/26/2021 6:00 PM PLASMA PROCESSING TECHNICIAN Impressions 08/26/2021 6:01 PM PLASMA PROCESSING TECHNICIAN IMPRESSION: 1. ??No acute findings. REPORT SIGNED BY DR. OLEGARIO LOVETT Narrative 08/26/2021 6:01 PM PLASMA PROCESSING TECHNICIAN EXAM: ??XR CHEST AP PORT DATE: 08/26/2021 [...] (ABNORMAL) Alcohol (ETOH), Plasma (08/26/2021 5:57 PM PLASMA PROCESSING TECHNICIAN) P athologist Signature ALCOHOL 4 (H) <3 mg/dL ATELLICA 08/26/2021 [facility] [place] 2[place] (ETOH), PLASMA ANALYZER 8:06 PM PLASMA PROCESSING TECHNICIAN HEALTH LABORATORY Specimen Anatomical Collection Method Collection Time Receive d Time (Source) Location / / Volume Laterality Blood 08/26/2021 5:57 PM 6:01 PLASMA PROCESSING TECHNICIAN PM PLASMA PROCESSING TECHNICIAN Rhys Bullock MD CHEMISTRY ORDERABLE Performing Organization Address City/[facility]/ZIP Code Phon e Number [facility] [address] [place] [address] LABORATORY Extra Tube-Coag (Lab Use Only) (08/26/2021 5:57 PM PLASMA PROCESSING TECHNICIAN) Specimen Anatomical Collection Method Collection Time Receive d Time (Source) Location / / Volume Laterality Blood 08/26/2021 5:57 PM 2 6:01 PLASMA PROCESSING TECHNICIAN PM PLASMA PROCESSING TECHNICIAN Rhys Bullock MD COAGULATION ORDERABLE Performing Organization Address City/[facility]/ZIP Code Phon e Number [facility] [address] [place] [address] LABORATORY Extra Tube PST (Lab Use Only) (08/26/2021 5:57 PM PLASMA PROCESSING TECHNICIAN) Specimen Anatomical Collection Method Collection Time Receive d Time (Source) Location / / Volume Laterality Blood 08/26/2021 5:57 PM 2 6:01 PLASMA PROCESSING TECHNICIAN PM PLASMA PROCESSING TECHNICIAN Rhys Bullock MD CHEMISTRY ORDERABLE Performing Organization Address City/[facility]/ZIP Code Phon e Number [place] [phone] [address] [phone] LABORATORY Extra Tube-SST (Lab Use Only) (08/26/2021 5:57 PM PLASMA PROCESSING TECHNICIAN) Specimen Anatomical Collection Method Collection Time Receive d Time (Source) Location / / Volume Laterality Blood 08/26/2021 5:57 PM 2 6:00 PLASMA PROCESSING TECHNICIAN PM PLASMA PROCESSING TECHNICIAN Rhys Bullock MD CHEMISTRY ORDERABLE Performing Organization Address City/[facility]/ZIP Code Phon e Number [facility] [address] [place] [address] LABORATORY Extra Tube-EDTA (Lab Use Only) (08/26/2021 5:57 PM PLASMA PROCESSING TECHNICIAN) Specimen Anatomical Collection Method Collection Time Receive d Time (Source) Location / / Volume Laterality Blood 08/26/2021 5:57 PM 2 6:01 PLASMA PROCESSING TECHNICIAN PM PLASMA PROCESSING TECHNICIAN Rhys Bullock MD HEMATOLOGY ORDERABLE Performing Organization Address City/[facility]/ZIP Code Phon e Number [facility] [address] [address] LABORATORY (ABNORMAL) CBC w/diff (08/26/2021 5:57 PM [facility]) [facility] Method Time Signature WBC 14.8 (H) 4.3 - 08/26/2021 [facility] [place] 2[place] 10.8 K/uL 6:05 PM PLASMA PROCESSING TECHNICIAN HEALTH LABORATORY RBC 5.72 (H) 4.20 - 08/26/2021 [facility] [place]NOTE 2] 5.40 M/uL 6:05 PM [facility] LABORATORY HEMOGLOBIN 15.7 12.0 - 08/26/2021 [facility] [place]NOTE 2] 16.0 6:05 PM [facility] gm/dL LABORATORY HEMATOCRIT 51.4 (H) 36.0 - 08/26/2021 [facility] [place]NOTE 2] 48.0 % 6:05 PM [facility] LAB[facility]AT[facility] MCV 90 80 - 100 08/26/2021 [facility] [place] 2[place] fl 6:05 PM [facility] LAB[facility]AT[facility] MCH 27 27 - 33 08/26/2021 [facility] [place]NOTE 2] pg 6:05 PM [facility] LAB[facility] MCHC 31 (L) 33 - 36 08/26/2021 [facility] [place]NOTE 2] gm/dL 6:05 PM [facility] LAB[facility]AT[facility] RDW 14.9 (H) 11.5 - 08/26/2021 [facility] [place]NOTE 2] 14.5 % 6:05 PM [facility] LAB[facility] PLATELET COUNT 449 (H) 150 - 400 08/26/2021 [facility] [place]NOTE 2[place] K/UL 6:05 PM [facility] LAB[facility] MPV 10.8 6.5 - 12 08/26/2021 [facility] [place] 2[place] 6:05 PM [facility] LAB[facility]ATORY PMN % 68.4 % 08/26/2021 [facility] [place] 2] 6:05 PM [facility] LAB[facility] IG% 0.5 <=1.0 % 08/26/2021 [facility] [place]NOTE 2] 6:05 PM [facility] LYMPH % 25.9 % 08/26/2021 [facility] [place]NOTE 2[place] 6:05 PM [facility] LAB[facility] MONO % 4.5 % 08/26/2021 [facility] [place]NOTE 2[place] 6:05 PM [facility] LAB[facility] EOS % 0.1 % 08/26/2021 [facility] [place] 2] 6:05 PM [facility] LAB[facility]ATORY BASO % 0.6 % 08/26/2021 [facility] [place] 2] 6:05 PM [facility] PMN ABSOLUTE 10.09 (H) 1.80 - 08/26/2021 [facility] [place]NOTE 2] 7.80 K/uL 6:05 PM PLASMA PROCESSING TECHNICIAN HEALTH LABORATORY IG ABSOLUTE 0.07 K/uL 08/26/2021 [facility] [place]NOTE 2] 6:05 PM [facility] LABORATORY LYMPH ABSOLUTE 3.82 1.00 - 08/26/2021 [facility] [place]NOTE 2] 4.00 K/uL 6:05 PM [facility] LABORATORY MONO ABSOLUTE 0.67 0.00 - 08/26/2021 [facility] [place]NOTE 2] 1.00 K/uL 6:05 PM [facility] LABORATORY EOS ABSOLUTE 0.02 0.00 - 08/26/2021 [facility] [place]NOTE 2] 0.45 K/uL 6:05 PM [facility] LABORATORY BASO ABSOLUTE 0.09 0.00 - 08/26/2021 [facility] [place]NOTE 2] 0.20 K/uL 6:05 PM [facility] LAB[facility]ATORY NUCL RBC % 0.0 0.0 - 0.0 08/26/2021 [facility] [place]NOTE 2[place] /100 WBC 6:05 PM [facility] LABORATORY NUCL RBC 0.00 0.00 - 08/26/2021 [facility] [place]NOTE 2] ABSOLUTE 0.00 K/uL 6:05 PM [facility] LABORATORY Specimen Anatomical Collection Method Collection Time Receive d Time (Source) Location / / Volume Laterality Blood 08/26/2021 5:57 PM 2 6:01 PLASMA PROCESSING TECHNICIAN PM PLASMA PROCESSING TECHNICIAN Vini Sanchez MD HEMATOLOGY ORDERABLE Performing Organization Address City/State/ZIP Code Phon e Number [address] [address] LABORATORY POCT Chloride (08/26/2021 5:55 PM PLASMA PROCESSING TECHNICIAN) athologist Signature POCT CHLORIDE 106 98 - 107 08/26/2021 [facility] [place] 2[place] mmol/L 5:58 PM [facility] LAB[facility]ORY Specimen Anatomical Collection Method Collection Time Receive d Time (Source) Location / / Volume Laterality 08/26/2021 5:55 PM 2 5:58 PLASMA PROCESSING TECHNICIAN PM PLASMA PROCESSING TECHNICIAN [facility] LAB POINT OF CARE TEST RESUL TS Performing Organization Address City/[facility]/ZIP [facility] [place] [facility] Phon e Number [address] [place] [address] LABORATORY POCT CREATININE (08/26/2021 5:55 PM PLASMA PROCESSING TECHNICIAN) athologist Signature POCT CREATININE 1.2 0.5 - 1.3 08/26/2021 [facility] mg/dL 5:58 PM PLASMA PROCESSING TECHNICIAN HEALTH LABORATORY Specimen Anatomical Collection Method Collection Time Receive d Time (Source) Location / / Volume Laterality 08/26/2021 5:55 PM 2 5:58 PLASMA PROCESSING TECHNICIAN PM PLASMA PROCESSING TECHNICIAN [facility] LAB POINT OF CARE TEST RESUL TS Performing Organization Address City/[facility]/ZIP Code Phon e Number [facility] [address] [place] [address] LABORATORY (ABNORMAL) POCT Lac (08/26/2021 5:55 PM PLASMA PROCESSING TECHNICIAN) [facility] Method Time Signature POCT LACTIC >20.0 (HH) 0.7 - 2.1 08/26/2021 [facility] [place] 2[place] ACID mmol/L 5:58 PM PLASMA PROCESSING TECHNICIAN [facility] LABORATORY Specimen Anatomical Collection Method Collection Time Receive d Time (Source) Location / / Volume Laterality 08/26/2021 5:55 PM 2 5:58 PLASMA PROCESSING TECHNICIAN PM PLASMA PROCESSING TECHNICIAN [facility] LAB POINT OF CARE TEST RESUL TS Performing Organization Address City/[facility]/ZIP Code Phon e Number [place] [phone] [place] [address] LABORATORY POCT Ca, Ionized (08/26/2021 5:55 PM PLASMA PROCESSING TECHNICIAN) athologist Signature POCT CA 1.25 1.13 - 08/26/2021 [facility] [place] 2] IONIZED 1.32 5:58 PM PLASMA PROCESSING TECHNICIAN HEALTH mmol/L LABORATORY Specimen Anatomical Collection Method Collection Time Receive d Time (Source) Location / / Volume Laterality 08/26/2021 5:55 PM 2 5:58 PLASMA PROCESSING TECHNICIAN PM PLASMA PROCESSING TECHNICIAN [facility] LAB POINT OF CARE TEST RESUL TS Performing Organization Address City/[facility]/ZIP Code Phon e Number [facility] [address] [place] [address] [phone] LABORATORY (ABNORMAL) POCT VBG/Na/K/Glu (08/26/2021 5:55 PM PLASMA PROCESSING TECHNICIAN) [facility] Method Time Signature POCT PH VENOUS 6.82 (L) 7.35 - 08/26/2021 [facility] [place]NOTE 2] 7.45 5:58 PM PLASMA PROCESSING TECHNICIAN HEALTH LABORATORY POCT PCO2 93 (H) 36 - 51 mm 08/26/2021 [facility] [place]NOTE 2] VENOUS Hg 5:58 PM [facility] LABORATORY POCT PO2 32 mm Hg 08/26/2021 [facility] [place]NOTE 2] VENOUS 5:58 PM [facility] LABORATORY POCT HCO3 15 (L) 22 - 29 08/26/2021 [facility] [place]NOTE 2] VENOUS mmol/L 5:58 PM [facility] LABORATORY POCT BASE -22.2 (L) -3.0 - 2.0 08/26/2021 [facility] [place]NOTE 2] EXCESS mmol/L 5:58 PM [facility] LABORATORY POCT CSO2 25.7 (L) 92.0 - 08/26/2021 [facility] [place]NOTE 2] 98.0 %SAT 5:58 PM [facility] LABORATORY POCT cTCO2 18.0 mmol/L 08/26/2021 [facility] [place]NOTE 2] 5:58 PM [facility] LABORATORY POCT SODIUM 143 133 - 144 08/26/2021 [facility] [place]NOTE 2] mmol/L 5:58 PM [facility] LAB[facility]ORY POCT POTASSIUM 2.6 (LL) 3.5 - 5.0 08/26/2021 [facility] [place]NOTE 2] mmol/L 5:58 PM [facility] LAB[facility]ATORY POCT GLUCOSE 179 (H) 60 - 100 08/26/2021 [facility] [place]NOTE 2] mg/dL 5:58 PM [facility] LAB[facility]ORY Specimen Anatomical Collection Method Collection Time Receive d Time (Source) Location / / Volume Laterality 08/26/2021 5:55 PM 2 5:58 PLASMA PROCESSING TECHNICIAN PM PLASMA PROCESSING TECHNICIAN [facility] LAB POINT OF CARE TEST RESUL TS Performing Organization Address [facility] Phon e Number [address] [address] LABORATORY Extra Tube-Blood Bank (Lab Use Only) (08/26/2021 5:55 PM PLASMA PROCESSING TECHNICIAN) Specimen Anatomical Collection Method Collection Time Receive d Time (Source) Location / / Volume Laterality Blood 08/26/2021 5:55 PM 2 6:00 PLASMA PROCESSING TECHNICIAN PM PLASMA PROCESSING TECHNICIAN Rhys Bullock MD BLOOD BANK ORDERABLE Performing Organization Address [facility] Phon e Number [address] [address] LABORATORY documented in this encounter Visit Diagnoses [...] syringe 10 mL Given 08/28/2021 9:14 PM PLASMA PROCESSING TECHNICIAN 10 mL 10 mL, Intravenous, EVERY 8 HOURS, First dose on Tue08/26/21 at 2300, Until Discontinued Given 08/27/2021 10:40 PM PLASMA PROCESSING TECHNICIAN 10 mL Given 08/27/2021 2:00 PM PLASMA PROCESSING TECHNICIAN 10 mL saline FLUSH syringe 10 mL Given 08/28/2021 8:13 AM PLASMA PROCESSING TECHNICIAN 10 mL 10 mL, Intravenous, NEEDED, Starting on Tue08/26/21 at 2248, Until Tue08/29/21 at 1728, [facility] acetaminophen (TYLENOL) tablet 1,000 mg Given 08/27/2021 3:29 PM PLASMA PROCESSING TECHNICIAN 1,000 mg 1,000 mg, oral, ONCE NEEDED, 1 dose, Starting on Tue08/26/21 at 2132, Until Tue08/27/21 at 1529, fever acetaminophen (TYLENOL) tablet 325-650 m g Given 08/26/2021 11:50 PM PLASMA PROCESSING TECHNICIAN 650 mg 325-650 mg, oral, EVERY 4 HOURS NEEDED, Starting on Tue08/26/21 at 2248, Until Tue08/27/21 at 1441, fever, pain, for pain or fever acetaminophen (TYLENOL) tablet 650 mg Given 08/28/2021 3:45 PM PLASMA PROCESSING TECHNICIAN 650 mg 650 mg, oral, EVERY 12 HOURS, First dose (after last modification) on Tue08/27/21 at 1445, Until Discontinued Given 08/28/2021 3:34 AM PLASMA PROCESSING TECHNICIAN 650 mg amLODIPine (NORVASC) tablet 2.5 mg Given 08/29/2021 9:36 AM PLASMA PROCESSING TECHNICIAN 2.5 mg 2.5 mg, oral, DAILY, First dose (after last modification) on Tue08/29/21 at 0800, Until Discontinued chlorthalidone (HYGROTON) tablet 25 mg Given 08/29/2021 9:36 AM PLASMA PROCESSING TECHNICIAN 25 mg 25 mg, oral, DAILY, First dose (after last modification) on Tue08/29/21 at 0800, Until Discontinued donepeziL (ARICEPT) tablet 10 mg Given 08/28/2021 9:14 PM PLASMA PROCESSING TECHNICIAN 10 mg 10 mg, oral, AT BEDTIME, First dose on Tue08/27/21 at 2200, Until Discontinued Given 08/27/2021 10:35 PM PLASMA PROCESSING TECHNICIAN 10 mg DULoxetine (CYMBALTA) delayed release capsule Given 9:37 AM PLASMA PROCESSING TECHNICIAN 60 mg 60 mg 60 mg, oral, DAILY, First dose on Tue08/27/21 at 0800, Until Discontinued Given 08/28/2021 8:22 AM PLASMA PROCESSING TECHNICIAN 60 mg Given 08/27/2021 8:50 AM PLASMA PROCESSING TECHNICIAN 60 mg hydrALAZINE (APRESOLINE) injection 10 mg Given 08/28/2021 3:44 PM PLASMA PROCESSING TECHNICIAN 10 mg 10 mg, Intravenous, EVERY 6 HOURS NEEDED, Starting on Tue08/28/21 at 1537, Until 08/29/21 at 1728, for SBP GREATER THAN, for SBP over 180 or DBP over 100 hydrOXYzine (ATARAX) tablet 25 mg Given 08/28/2021 3:21 PM PLASMA PROCESSING TECHNICIAN 25 mg 25 mg, oral, THREE TIMES A DAY NEEDED, Starting on Tue08/28/21 at 1322, Until Tue08/28/21 at 1537, see comments, anxiety hydrOXYzine (ATARAX) tablet 25 mg Given 08/28/2021 9:14 PM PLASMA PROCESSING TECHNICIAN 25 mg 25 mg, oral, THREE TIMES A DAY, First dose (after last modification) on Tue08/28/21 at 1545, Until Discontinued hydrOXYzine pamoate (VISTARIL) capsule 2 5 mg 25 mg, oral, EVERY 6 HOURS NEEDED, St arting on Tue08/29/21 at 0308, Until Tue08/29/21 at 1728, anxiety ketorolac (ToradoL) injection 15 mg Given 08/26/2021 10:39 PM PLASMA PROCESSING TECHNICIAN 15 mg 15 mg, Intravenous, ONCE, 1 dose, On Tue08/26/21 at 2215, Maximum duration of treatment is 5 days. lactated Ringers (LR) IV infusion Rate Change 08/27/2021 3:36 PM PLASMA PROCESSING TECHNICIAN 75 mL/hr at 75 mL/hr, Intravenous, CONTINUOUS, Starting on Tue08/26/21 at 2300, Until Tue08/28/21 at 1801 New Bag 08/27/2021 12:04 AM PLASMA PROCESSING TECHNICIAN 100 mL/hr levETIRAcetam in NaCl (KEPPRA) IV New Bag 08/26/2021 9:47 PM PLASMA PROCESSING TECHNICIAN 1 ,000 mg piggyback 1,000 mg 1,000 mg, Intravenous, ONCE, 1 dose, On Tue08/26/21 at 2015, Administer over 30 Minutes lidocaine 1% (PF) (XYLOCAINE) Given 08/28/2021 8:13 AM PLASMA PROCESSING TECHNICIAN 0.1 m L Left Arm injection 0.1-0.3 mL 0.1-0.3 mL, Intradermal, NEEDED, Starting on Tue08/26/21 at 2248, Until 08/29/21 at 1728, IV start or restart LORazepam (ATIVAN) injection (conc: 2 mg/mL) 1 Given 0 08/27/2021 8:10 PM PLASMA PROCESSING TECHNICIAN 1 mg mg 1 mg, Intravenous, ONCE, 1 dose, On Sole 08/27/21 at 2015 LORazepam (ATIVAN) injection (conc: 2 mg/mL) 1 Given 0 08/27/2021 9:53 PM PLASMA PROCESSING TECHNICIAN 1 mg mg 1 mg, Intravenous, ONCE NEEDED, 1 dose, Starting on Tue08/27/21 at 2139, Until Tue08/27/21 at 2153, for MRI LORazepam (ATIVAN) injection (conc: 2 mg/mL) 2 Given 0 08/26/2021 6:14 PM PLASMA PROCESSING TECHNICIAN 2 mg mg 2 mg, Intravenous, ONCE, 1 dose, On Tue08/26/21 at 1830 LORazepam (ATIVAN) injection (conc: 2 mg /mL) 2 mg 2 mg, Intravenous, ONCE NEEDED, 1 dos e, Starting on Tue08/26/21 at 1819, Until Tue08/29/21 at 1728, seizure LORAZEPAM 2 MG/ML INJECTION SOLUTION Given 08/26/2021 5:55 PM PLASMA PROCESSING TECHNICIAN 2 mg 1 dose, Starting on Tue08/26/21 at 1753, Until Tue08/26/21 at 1755 MAGNESIUM REPLACEMENT INTRAVENOUS - NOT FOR DOCUMENTATION PURPOSES Intravenous, PER PROTOCOL, Starting on T 08/27/21 at 0729, Until 08/29/21 at 1728 metoprolol tartrate (LOPRESSOR) tablet 1 00 mg Given 08/29/2021 9:36 AM PLASMA PROCESSING TECHNICIAN 100 mg 100 mg, oral, DAILY, First dose on Tue08/28/21 at 1645, Until Discontinued Given 08/28/2021 5:25 PM PLASMA PROCESSING TECHNICIAN 100 mg ondansetron (ZOFRAN) disintegrating tabl et 4 mg Given 08/26/2021 3:36 PM PLASMA PROCESSING TECHNICIAN 4 mg 4 mg, oral, ONCE, 1 dose, On Tue08/26/21 at 1545 ONDANSETRON 4 MG DISINTEGRATING TABLET 1 dose, Starting on Tue08/26/21 at 1535, Until 08/08 at 1536 potassium chloride (K-DUR) extended release Given 08/09 12:08 PM PLASMA PROCESSING TECHNICIAN 40 mEq tablet 40 mEq 40 mEq, oral, EVERY 4 HOURS (NS), 2 doses, First dose on Tue08/27/21 at 0800, Last dose on Tue08/27/21 at 1200 Given 08/27/2021 8:07 AM PLASMA PROCESSING TECHNICIAN 40 mEq potassium chloride (K-DUR) extended release Given 08/28/2021 8:21 AM PLASMA PROCESSING TECHNICIAN 40 mEq tablet 40 mEq 40 mEq, oral, ONCE, 1 dose, On Tue08/28/21 at 0700 potassium chloride (K-DUR) extended release Given 08/29/2021 9:36 AM PLASMA PROCESSING TECHNICIAN 40 mEq tablet 40 mEq 40 mEq, oral, ONCE, 1 dose, On Tue08/29/21 at 0800 potassium chloride 10 mEq IV New Bag 08/26/2021 6:47 PM PLASMA PROCESSING TECHNICIAN 10 mEq 100 mL/hr piggyback in 100 mL 100 mL (10 mEq), Intravenous, ONCE, 1 dose, On Tue08/26/21 at 1845, Administer over 60 Minutes potassium chloride 10 mEq IV piggyback in New Bag 2021 11:04 PM PLASMA PROCESSING TECHNICIAN 100 mL 100 mL 100 mL (10 mEq), Intravenous, EVERY 1 HOUR, 2 doses, First dose on Tue08/26/21 at 2200, Last dose on Tue08/26/21 at 2300, Administer over 60 Minutes New Bag 08/26/2021 10:00 PM PLASMA PROCESSING TECHNICIAN 100 mL POTASSIUM CHLORIDE 10 MEQ/100ML IN [...] 0.9 % New Bag 08/26/2021 6:00 PM PLASMA PROCESSING TECHNICIAN 1,000 mL 20 00 mL/hr INTRAVENOUS SOLUTION 1 dose, Starting on Tue08/26/21 at 1758, Until Tue08/26/21 at 1800 SUMAtriptan succinate (IMITREX) tablet 2 5 mg Given 08/27/2021 5:13 PM PLASMA PROCESSING TECHNICIAN 25 mg 25 mg, oral, ONCE NEEDED, Starting on Sole 08/27/21 at 1509, Until 08/29/21 at 1728, migraine headache documented in this encounter Active and Recently Administered Medications Times are shown in PLASMA PROCESSING TECHNICIAN. Scheduled Medication Order 08/27/2021 08/28/2021 08/29/2021 saline [...] mg (COM PLETED) 2009 (Given - Provider: Rayas Martines RN) 1 mg, Intravenous, ONCE, 1 [...] (COM PLETED) 2152 (Given - Provider: Jamar eMza RN) 1 mg, Intravenous, ONCE NEEDED, 1 [...] Time COVID-19/Influenza Rule-Out 08/26/2021 08/26/202108/09 8:53 AM PLASMA PROCESSING TECHNICIAN documented as of this encounter Care Teams Results Technician Relationship Specialty Start Date End Date [facility] PCP - Primary Care Clinic [address] [place] [address] [facility] [place] [id number] Mar Alfaro DO PCP - General Family Medicine 07/09/21 [address] [place] [id number] documented as of this encounter
--- OUTSIDE RECORDS SUMMARY | 2022-06-16 17:55 | XMS_ITS | Encounter Summary ---
:1975 Author Organization [facility] Address [address] [place] [id number] Care Team Providers Name Role Phone [facility] Unavailable [phone] Mar Alfaro DO Primary Care Provider Encounter [...] in contact with Yes 07/09/2021 7:23 AM SHORE MAN someone who was confirmed or suspected to have Coronavirus / COVID-19? documented as of this encounter Plan of Treatment Not on filedocumented as of this encounter Visit Diagnoses Not on filedocumented in this encounter Additional Health Concerns Infection Onset Date Last Indicated Resolved Time COVID-19 Rule-Out 07/09/2021 07/09/2021 07/09/2021 2:4 9 PM SHORE MAN COVID-19 07/09/2021 07/09/2021 08/08/2021 2:47 AM SHORE MAN documented as of this encounter Care Teams Home Health Care Provider Relationship Specialty Start Date End Date [facility] PCP - Primary Care Clinic [address] [place] [id number] Mar Alfaro DO PCP - General Family Medicine 07/09/[address] [place] [place] [address] documented as of this encounter
--- OUTSIDE RECORDS SUMMARY | 2022-06-16 17:55 | XMS_ITS | Encounter Summary ---
:1975 Author Organization [facility] Address [address] [place] [address] Care Team Providers Name Role Phone [facility], [facility] Unavailable [phone] Mar Alfaro DO Primary Care Provider Reason for Visit Reason Comments Leg swelling Encounter Details Date Type Department Care Team Description 07/09/2021 Emergency [facility] Alexa Aparicio MD Hospital Emergency [address] [facility] Department [address] [place] [address] [place], [place] [address] [phone] Social History Tobacco Use Types Packs/Day Years Used Date Smoking Tobacco: Every Day Cigarettes 0.3 Smokeless Tobacco: Never Alcohol Use Standard Drinks/Week Comments Yes 0 (1 standard drink = 0.6 oz pure alcoho l) social Sex Assigned at Date Recorded Not on file COVID-19 Exposure Response Date Recorded In the last month, have you been in contact with Yes 07/09/2021 7:23 AM CLINICAL RECRUITER someone who was confirmed or suspected to have Coronavirus / COVID-19? documented as of this encounter Last Filed Vital Signs Vital Sign Reading Time Taken Comments Blood Pressure 150/107 07/09/2021 11:30 AM CLINICAL RECRUITER Pulse 66 07/09/2021 11:30 AM CLINICAL RECRUITER Temperature 36.8 ??C (98.2 ??F) 07/09/2021 11:30 AM CLINICAL RECRUITER Respiratory Rate 17 07/09/2021 11:30 AM CLINICAL RECRUITER Oxygen Saturation 93% 07/09/2021 11:30 AM CLINICAL RECRUITER Inhaled Oxygen Concentration - - Weight - - Height - - Body Mass Index - - documented in this encounter Discharge Instructions Discharge InstructionsShharvey Aparicio MD - 07/09/2021 11:40 AM CLINICAL RECRUITER Stop taking your amlodipine. Increase your Chlorthalidone to 50 mg daily. ICAL RECRUITER AttachmentsThe following attachments cannot be sent through Care Everywhere.Leg Edema (AfterCare(R) Instructions(ER/ED)) (Moroccan)documented in this encounter Medications at Time of [...] subscriber number. States that she will call. ICAL RECRUITER Tamika Mckeon RN - 07/09/2021 11:42 AM CST Patient discharged from the ED, states she has a ride home. AVS reviewed with patient, verbalized understanding. ICAL RECRUITER Tamika Mckeon RN - 07/09/2021 10:34 AM CST Patient up to BS to void. Now resting on cart. Call light within reach, able to make needs known. ICAL RECRUITER Tamika Mckeon RN - 07/09/2021 10:06 AM CST US at bedside. ICAL RECRUITER Alexa Aparicio MD - 07/09/2021 8:48 AM CST CHIEF COMPLAINT: Leg swelling HPI: Initial history obtained at 8:48 AM 07/09/21. History obtained via the patient. Key Peres is a 46 y.o. female with a history of alcohol abuse and TBI with dementia following who presents to the emergency department via EMS from correction for evaluation of leg swelling that began [...] days. There are multiple people in her correction that infected with COVID-19 currently and she [...] via telehealth as she is originally from [place] and currently in a treatment facility. She [...] accurate. Alexa Aparicio MD 8:48 AM 07/09/21 [facility] EMERGENCY DEPARTMENT ICAL RECRUITER Winnie Rodriguez RN - 07/09/2021 8:36 AM CST Pt additionally states multiple people at have covid. Tested negative 2 days ago. Would like to be re-tested. ICAL RECRUITER Winnie Rodriguez RN - 07/09/2021 7:24 AM CST Pt arrives via [facility] for evaluation of leg swelling. Pt resides at a , hx alcohol abuse. Walked out to ambulance stretcher. Pt states she noticed 2 days ago bilateral ankle/feet swelling . Worsened overnight and now hands mildly swollen. Wondering if her medication is causing. ICAL RECRUITER documented in this encounter Plan of Treatment Not on filedocumented as of this encounter Procedures Procedure Name Priority Date/Time Associated Comments Diagnosis US VENOUS EXTREM LOW STAT 07/09/2021 11:13 Res ults for this BILAT AM CLINICAL RECRUITER procedure are i n the results section. SARS-COV-2 DETECTION STAT 07/09/2021 9:05 AM R esults for this BY ELIZABETH PCR CLINICAL RECRUITER procedure are i n the results section. CBC/DIFF STAT 07/09/2021 9:03 AM Results f or this CLINICAL RECRUITER procedure are i n the results section. URINE MACROSCOPIC Routine 07/09/2021 7:52 AM Resu lts for this (POCT) DIP CLINICAL RECRUITER procedure are i n the results section. BNP-BTYPE NA PEPTIDE STAT Add-on 07/09/2021 7:36 AM R esults for this CLINICAL RECRUITER procedure are i n the results section. EXTRA TUBE-EDTA STAT 07/09/2021 7:30 AM CLINICAL RECRUITER EXTRA TUBE-BLOOD STAT 07/09/2021 7:30 AM BANK CLINICAL RECRUITER EXTRA TUBE-SST (LAB STAT 07/09/2021 7:30 AM USE ONLY) CLINICAL RECRUITER LIVER PROFILE STAT Add-on 07/09/2021 7:30 AM Results for this CLINICAL RECRUITER procedure are i n the results section. BASIC METAB PROFILE STAT Add-on 07/09/2021 7:30 AM Re sults for this CLINICAL RECRUITER procedure are i n the results section. EXTRA TUBE PST STAT 07/09/2021 7:30 AM CLINICAL RECRUITER documented in this encounter Results US VENOUS LOW BILAT (07/09/2021 11:13 AM CLINICAL RECRUITER) Anatomical Region Laterality Modality Extremity Ultrasound Specimen (Source) Anatomical Collection Method Collection Time Re ceived Time Location / / Volume Laterality 07/09/2021 10:33 AM CLINICAL RECRUITER Impressions 07/09/2021 11:32 AM CLINICAL RECRUITER IMPRESSION: 1. ??No deep venous thrombosis. REPORT SIGNED BY DR. Jonh Martin Narrative 07/09/2021 11:32 AM CLINICAL RECRUITER EXAM: US VENOUS EXTREM LOW BILAT DATE: [...] ORDERABLE (ABNORMAL) COVID-19 (PUI) (07/09/2021 9:05 AM CLINICAL RECRUITER) Analysis Performed At Patho logist Time Signature SARS-CoV-2 SARS-CoV-2 SARS-CoV-2 FAN ELIZABETH 07/09/2021 [place] RNA by PCR RNA Detected RNA Not 6800 2:49 PM [facility] (A) Detected [facility] Specimen (Source) Anatomical Location / Collection Collection Ranjith e Received Time Laterality Method / Volume Nasopharynx NASOPHARYNGEAL SWAB / 07/09/2021 9:05 09/2020 Unknown AM CLINICAL RECRUITER 9:12 AM CLINICAL RECRUITER Alexa Aparicio MD MICROBIOLOGY ORDERABLE Performing Organization Address City/State/ZIP Code Phon e Number [facility] [address] [place] [address] [phone] LABORATORY (ABNORMAL) CBC / Diff (07/09/2021 9:03 AM CLINICAL RECRUITER) Patholo gist Method Time Signature WBC 4.5 4.3 - 10.8 07/09/2021 [facility] K/uL 9:17 AM [facility]ALTH LABORATORY RBC 4.42 4.20 - 07/09/2021 [facility] 5.40 M/uL 9:17 AM [facility]ORY HEMOGLOBIN 12.2 12.0 - 07/09/2021 [facility] 16.0 gm/dL 9:17 AM CLINICAL RECRUITER HEALTH LABORATORY HEMATOCRIT 38.3 36.0 - 07/09/2021 [facility] 48.0 % 9:17 AM CLINICAL RECRUITER HEALTH LABORATORY MCV 87 80 - 100 07/09/2021 [facility] fl 9:17 AM CLINICAL RECRUITER HEALTH LABORATORY MCH 28 27 - 33 pg 07/09/2021 [facility] 9:17 AM CLINICAL RECRUITER HEALTH LABORATORY MCHC 32 (L) 33 - 36 07/09/2021 [facility] gm/dL 9:[address] [facility] LABORATORY RDW 15.9 (H) 11.5 - 07/09/2021 [facility] 14.5 % 9:17 AM CLINICAL RECRUITER HEALTH LABORATORY PLATELET COUNT 267 150 - 400 07/09/2021 [facility] K/UL 9:17 AM CLINICAL RECRUITER [facility] LAB[facility]ATORY MPV 10.9 6.5 - 12 07/09/2021 [facility] 9:17 AM CLINICAL RECRUITER HEALTH LABORATORY PMN % 55.0 % 07/09/2021 [facility] 9:[address] [facility] LAB[facility] IG% 0.2 <=1.0 % 07/09/2021 [facility] 9:17 AM CLINICAL RECRUITER HEALTH LABORATORY LYMPH % 30.7 % 07/09/2021 [facility] 9:17 AM CLINICAL RECRUITER HEALTH LABORATORY MONO % 10.8 % 07/09/2021 [facility] 9:17 AM CLINICAL RECRUITER HEALTH LABORATORY EOS % 2.9 % 07/09/2021 [facility] 9:17 AM CLINICAL RECRUITER HEALTH LABORATORY BASO % 0.4 % 07/09/2021 [facility] 9:17 AM CLINICAL RECRUITER HEALTH LABORATORY PMN ABSOLUTE 2.49 1.80 - 07/09/2021 [facility] 7.80 K/uL 9:17 AM CLINICAL RECRUITER HEALTH LABORATORY IG ABSOLUTE 0.01 K/uL 07/09/2021 [facility] 9:17 AM CLINICAL RECRUITER HEALTH LABORATORY LYMPH ABSOLUTE 1.39 1.00 - 07/09/2021 [facility] 4.00 K/uL 9:17 AM CLINICAL RECRUITER HEALTH LABORATORY MONO ABSOLUTE 0.49 0.00 - 07/09/2021 [facility] 1.00 K/uL 9:17 AM CLINICAL RECRUITER HEALTH LABORATORY EOS ABSOLUTE 0.13 0.00 - 07/09/2021 [facility] 0.45 K/uL 9:17 AM CLINICAL RECRUITER HEALTH LABORATORY BASO ABSOLUTE 0.02 0.00 - 07/09/2021 [facility] 0.20 K/uL 9:17 AM CLINICAL RECRUITER HEALTH LABORATORY NUCL RBC % 0.0 0.0 - 0.0 07/09/2021 [facility] /100 WBC 9:17 AM CLINICAL RECRUITER HEALTH LABORATORY NUCL RBC 0.00 0.00 - 07/09/2021 [facility] ABSOLUTE 0.00 K/uL 9:17 AM CLINICAL RECRUITER HEALTH LABORATORY Specimen Anatomical Collection Method Collection Time Receive d Time (Source) Location / / Volume Laterality Blood 07/09/2021 9:03 AM 9:12 CLINICAL RECRUITER AM CLINICAL RECRUITER Maggie Chambers MD HEMATOLOGY ORDERABLE Performing Organization Address City/State/ZIP Code Phon e Number [facility] [address] [place] [address] [phone] LABORATORY (ABNORMAL) Urine Macroscopic (POCT) Dip (07/09/2021 7:52 AM CLINICAL RECRUITER) [facility] gist Method Time Signature PH URINE 5.5 4.5 - 8.0 07/09/2021 [facility] 7:50 AM CLINICAL RECRUITER HEALTH LABORATORY SP.GRAVITY, 1.025 1.015 - 07/09/2021 [facility] UA 1.025 7:[address] [facility] LABORATORY GLUCOSE, UA Negative Negative 07/09/2021 [facility] mg/dL 7:[address] [facility] LABORATORY KETONE, UA Negative Negative 07/09/2021 [facility] mg/dL 7:[address] [facility] LABORATORY OCCULT BLOOD, Large (A) Negative, 07/09/2021 [facility] UA Trace, 7:[address] [facility] TRACE-LYSED, LABORATORY TRACE-INTACT BILIRUBIN, UA Negative Negative 07/09/2021 [facility] 7:[address] [facility] LABORATORY UROBILINOGEN, 0.2 0.2 - 1.0 07/09/2021 [facility] UA EU/dL 7:[address] [facility] LABORATORY NITRITE, UA Negative Negative 07/09/2021 [facility] 7:[address] [facility] LABORATORY WBC ESTERASE, Negative Negative, 07/09/2021 [facility] UA Trace 7:[address] [facility] LABORATORY PROTEIN, UA Negative Negative, 07/09/2021 [facility] Trace mg/dL 7:[address] [facility] LABORATORY Specimen Anatomical Collection Method Collection Time Receive d Time (Source) Location / / Volume Laterality Urine specimen 07/09/2021 7:52 AM 021 7:50 (specimen) CLINICAL RECRUITER AM CLINICAL RECRUITER [facility] LAB POINT OF CARE TEST RESUL TS Performing Organization Address City/[facility]/ZIP Code Phon e Number [address] [place] [address] LABORATORY BNP-BType Na Peptide (07/09/2021 7:36 AM CLINICAL RECRUITER) P athologist Signature BNP-BTYPE NA 63 <=100 [facility] XPT 07/09/2021 [facility] PEPTIDE pg/mL [facility] 8:[address] [facility] LABORATORY Specimen Anatomical Collection Method Collection Time Receive d Time (Source) Location / / Volume Laterality Plasma specimen 07/09/2021 7:36 AM 2020 7:48 (specimen) CLINICAL RECRUITER AM CLINICAL RECRUITER Maggie Chambers MD CHEMISTRY ORDERABLE Performing Organization Address City/[facility]/ZIP [facility] Phon e Number [address] [place] [address] LABORATORY (ABNORMAL) Basic Metab Profile (07/09/2021 7:30 AM [facility]) Analysis Performed At Patho logist Time Signature SODIUM 144 136 - 145 07/09/2021 [facility] mmol/L 8:[address] [facility] LABORATORY POTASSIUM 3.5 3.5 - 5.1 07/09/2021 [facility] mmol/L 8:[address] [facility] LABORATORY CHLORIDE 112 98 - 112 07/09/2021 [facility] mmol/L 8:[address] [facility] LABORATORY CARBON DIOXIDE 26 21 - 32 07/09/2021 [facility] mmol/L 8:[address] [facility] LABORATORY BUN (UREA 8 7 - 24 07/09/2021 [facility] NITRO) mg/dL 8:[address] [facility] LABORATORY CREATININE 0.97 0.55 - 07/09/2021 [facility] 1.02 mg/dL 8:[address] [facility] LABORATORY EST GFR >60.00 >60.00 07/09/2021 [facility] (CKD-EPI) mL/min 8:[address] [facility] LABORATORY EST GFR IF >60.00 >60.00 07/09/2021 [facility] AM mL/min 8:[address] [facility] LABORATORY GLUCOSE 98 74 - 106 07/09/2021 [facility] mg/dL 8:[address] [facility] LABORATORY CALCIUM, SERUM 8.4 (L) 8.5 - 10.1 07/09/2021 [facility] L mg/dL 8:[address] [facility] LABORATORY ANION GAP 6.0 0.0 - 15.0 07/09/2021 [facility] mmol/L 8:[address] [facility] LABORATORY Specimen Anatomical Collection Method Collection Time Receive d Time (Source) Location / / Volume Laterality Blood 07/09/2021 7:30 AM 7:43 CLINICAL RECRUITER AM CLINICAL RECRUITER Maggie Chambers MD CHEMISTRY ORDERABLE Performing Organization Address City/State/ZIP Code Phon e Number [facility] [address] [place] [address] LABORATORY (ABNORMAL) Liver Profile (07/09/2021 7:30 AM [facility]) P athologist Signature ALT 20 12 - 68 07/09/2021 [facility] IU/L 8:31 AM [facility] HEALTH LABORATORY ALKALINE 58 45 - 117 07/09/2021 [facility] P'TASE IU/L 8:[address] [facility] LABORATORY AST (SGOT) 10 (L) 12 - 37 07/09/2021 [facility] IU/L 8:[address] [facility] LABORATORY PROTEIN TOTAL 6.0 (L) 6.4 - 8.2 07/09/2021 [facility] g/dL 8:[address] [facility] LABORATORY ALBUMIN 3.1 (L) 3.4 - 5.0 07/09/2021 [facility] g/dL 8:[address] [facility] LABORATORY BILIRUBIN-DIRE 0.08 0.05 - 07/09/[address] [facility] [address] 0.24 mg/dL 8:[address] [facility] LABORATORY BILIRUBIN-TOTA 0.3 0.2 - 1.0 07/09/2021 [facility] L mg/dL 8:[address] [facility] LABORATORY Specimen Anatomical Collection Method Collection Time Receive d Time (Source) Location / / Volume Laterality Blood 07/09/2021 7:30 AM 7:43 CLINICAL RECRUITER AM CLINICAL RECRUITER Maggie Chambers MD CHEMISTRY ORDERABLE Performing Organization Address City/[facility]/ZIP [facility] Phon e Number [address] [address] LABORATORY Extra Tube PST (Lab Use Only) (07/09/2021 7:30 AM CLINICAL RECRUITER) Specimen Anatomical Collection Method Collection Time Receive d Time (Source) Location / / Volume Laterality Blood 07/09/2021 7:30 AM 7:40 CLINICAL RECRUITER AM CLINICAL RECRUITER Maggie Chambers MD CHEMISTRY ORDERABLE Performing Organization Address City/State/ZIP [facility] Phon e Number [address] [place] [address] [phone] LABORATORY Extra Tube-SST (Lab Use Only) (07/09/2021 7:30 AM CLINICAL RECRUITER) Specimen Anatomical Collection Method Collection Time Receive d Time (Source) Location / / Volume Laterality Blood 07/09/2021 7:30 AM 7:43 CLINICAL RECRUITER AM CLINICAL RECRUITER Maggie Chambers MD CHEMISTRY ORDERABLE Performing Organization Address City/[facility]/ZIP [facility] Phon e Number [facility] [address] [place] [address] LABORATORY Extra Tube-EDTA (Lab Use Only) (07/09/2021 7:30 AM CLINICAL RECRUITER) Specimen Anatomical Collection Method Collection Time Receive d Time (Source) Location / / Volume Laterality Blood 07/09/2021 7:30 AM 7:43 CLINICAL RECRUITER AM CLINICAL RECRUITER Maggie Chambers MD HEMATOLOGY ORDERABLE Performing Organization Address City/[facility] Phon e Number [address] [address] LABORATORY Extra Tube-Blood Bank (Lab Use Only) (07/09/2021 7:30 AM CLINICAL RECRUITER) Specimen Anatomical Collection Method Collection Time Receive d Time (Source) Location / / Volume Laterality Blood 07/09/2021 7:30 AM 7:44 CLINICAL RECRUITER AM CLINICAL RECRUITER Maggie Chambers MD BLOOD BANK ORDERABLE Performing Organization Address [facility] Phon e Number [address] [address] LABORATORY documented in this encounter Visit Diagnoses Diagnosis Edema, unspecified type - Primary documented in this encounter Administered Medications Inactive Administered Medications - up to 3 most recent administrations Medication Order MAR Action Action Date Dose Rate Site calcium gluconate injection 1 g Given 07/09/2021 9:08 AM CLINICAL RECRUITER 1 g 1 g, Intravenous, ONCE, 1 dose, On Sole 07/09/21 at 0900 furosemide (PF) (LASIX) injection 40 mg Given 07/09/2021 9:09 AM CLINICAL RECRUITER 40 mg 40 mg, Intravenous, ONCE, 1 dose, On Sole 07/09/21 at 0900 documented in this encounter Active and Recently Administered Medications Times are shown in CLINICAL RECRUITER. Scheduled Medication Order 07/07/2021 07/08/2021 07/09/2021 calcium [...] Rule-Out 07/09/2021 07/09/2021 07/09/2021 2:4 9 PM CLINICAL RECRUITER documented as of this encounter Care Teams Hospitality Housekeeper Relationship Specialty Start Date End Date [facility] PCP - Primary Care Clinic [address] [place] [address] [address] [place] [address] Mar Alfaro DO PCP - General Family Medicine 07/09/[address] [place] [address] documented as of this encounter
--- OUTSIDE RECORDS SUMMARY | 2022-06-16 17:55 | XMS_ITS ---
:1975 Author Care Team Providers Name Role Phone TAPESTRY OTHER [phone] Allergies Code Code System Name Reaction Severity [...] at bedtime. Notes: Routine Standing Orders Per [facility] Protocol Problems Name Status Onset Date [...] of Prescription Braden Garcia NP, S: [address] [place] [address], Ph. Social History Tobacco Smoking Status Heavy Tobacco Smoker (1 pack per day) Vaccine List None recorded. Plan of Care Patient Instructions Infection control is important while in a congregant living facility, especially amid the COVID-19 pandemic. The following measures can help to mitigate the spread of infections: 1. Frequent hand washing with soap and w ater or hand mapping engineer. 2. Avoid touching your face. 3. Maintain [...]
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
--- OUTSIDE RECORDS SUMMARY | 2022-06-16 17:56 | XMS_ITS | Encounter Summary ---
:1975 Author Organization [facility] Address [address] [place] [address] Care Team Providers Name Role Phone Line, Ed Referral Primary Care Provider Line, Ed Referral Unavailable Daya Galicia MD Primary Care Provider Jesse Syed [facility] Unavailable Unavailable Clinic, [facility] Unavailable [phone] Mar Alfaro DO Primary Care Provider Encounter Details Date Type Department Care Team Description 05/09/2013 [facility] Healthcare Receptionist Healthcare Receptionist Rhys Orellana MD [address] [place] [address] Social History Tobacco Use Types Packs/Day Years Used Date Smoking Tobacco: Every Day Cigarettes 0.3 Alcohol Use Standard Drinks/Week Comments Yes 0 (1 standard drink = 0.6 oz pure alcoho l) social Sex Assigned at Date Recorded Not on file documented as of this encounter Progress Notes Rhys Orellana MD - 05/09/2013 12:52 PM CDT CC: hRys Orellana MD SUBJECTIVE: I reviewed her recent [...] are now three weeks old, I called [facility] at [phone] and asked them to repeat the films, cervical and thoracic, and we would check those once they arrive over to [place]. Rhys Orellana MD /RV Dictation ID: [id number] documented in this encounter Plan of Treatment Not on filedocumented as of this encounter Visit Diagnoses Not on filedocumented in this encounter Additional Health Concerns Infection Onset Date Last Indicated Resolved Time COVID-19 Rule-Out 07/09/2021 07/09/2021 07/09/2021 2:4 9 PM ELECTRICIAN SHOP COVID-19 07/09/2021 07/09/2021 08/08/2021 2:47 AM ELECTRICIAN SHOP COVID-19/Influenza Rule-Out 08/26/2021 08/26/202108/09 8:53 AM ELECTRICIAN SHOP documented as of this encounter Care Teams Ophthalmology Technician Relationship Specialty Start Date End Date Line, Ed Referral PCP - General 03/04/13 07/18/13 ED REFERRAL LINE - ED USE ONLY Line, Ed Referral PCP - Primary Care 03/04/13 07/18/13 ED REFERRAL LINE - ED USE Clinic ONLY Daya Galicia MD PCP - General 07/19/13 07/08/21 [address] [place], [place] [id number] Jesse Syed PCP - Primary Care 07/19/13 07/08/21 [facility] PCP - Primary Care 07/09/21 [facility] [address] [place] [phone] Mar Alfaro DO PCP - General Family Medicine 07/09/21 [address] [place] [address] documented as of this encounter
--- OUTSIDE RECORDS SUMMARY | 2022-06-16 17:56 | XMS_ITS | Encounter Summary ---
:[address] [facility] Address [address] [place] [address] Care Team Providers Name Role Phone Line, Ed Referral Primary Care Provider Line, Ed Referral Unavailable Reason for Referral (Routine) - Closed Specialty Diagnoses / Procedures Referred By Contact Refer red To Contact Diagnoses Fracture [facility] Procedures XR SPINE CERVICAL 2 OR 3 VIEWS Referral ID Status Reason Start Date Expiration Date Visits Requ ested Visits Authorized [id number] Closed 06/13/2013 12/10/2013 1 1 SPECIALIST Reason for Visit (Routine) - Closed Specialty Diagnoses / Procedures Referred By Contact Refer red To Contact Diagnoses Fracture [facility] Procedures XR SPINE CERVICAL 2 OR 3 VIEWS Referral ID Status Reason Start Date Expiration Date Visits Requ ested Visits Authorized [id number] Closed 06/13/2013 12/10/2013 1 1 Encounter Details Date Type Department Care Team Description 06/13/2013 Hospital Encounter Xray [address] [place] [id number] Social History Tobacco Use Types Packs/Day [...] R esults for this OR 3 VIEWS [facility] procedure are i n the results section. documented in this encounter Results XR SPINE CERVICAL 2 OR 3 VIEW (06/13/2013 12:20 PM [facility] SPECIALIST) Anatomical Region Laterality Modality Spine Computed Radiography Specimen (Source) Anatomical Collection Method Collection Time Re ceived Time Location / / Volume Laterality 06/13/2013 12:42 PM [facility] Impressions 06/13/2013 12:43 PM [facility] IMPRESSION: No cervical spine fracture. ??The patien t's known occipital condyle fracture is not identified on this study. ??Appearance of the cervical spine is unchanged from the 05/09/2013 x-ray. Narrative 06/13/2013 12:43 PM [facility] EXAM: X-RAY CERVICAL SPINE DATE: 06/13/2013 12:20 PM COMPARISON: 05/09/2013 [facility] CLINICAL DATA: Neck pain. ? TECHNIQUE: [...] SPINE DATE: 06/13/2013 12:20 PM COMPARISON: 05/09/2013 [facility] CLINICAL DATA: Neck pain. 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
--- OUTSIDE RECORDS SUMMARY | 2022-06-16 17:56 | XMS_ITS | Encounter Summary ---
:1975 Author Organization [facility] Address [address] [place] [id number] Care Team Providers Name Role Phone Line, Ed Referral Primary Care Provider Line, Ed Referral Unavailable Daya Galicia MD Primary Care Provider Jesse Syed [facility] Unavailable Unavailable Clinic, [facility] Unavailable [phone] Mar Alfaro DO Primary Care Provider Encounter Details Date Type Department Care Team Description 05/11/2013 [facility] Financial Aid Counselor Financial Aid Counselor Rhys Orellana MD [address] [place] [id number] Social History Tobacco Use Types Packs/Day Years [...] recent plain cervical and thoracic films from [place] done May 09, 2013. The C5 fracture appears stable in comparison to the prior studies, as does the T4 fracture. 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
--- OUTSIDE RECORDS SUMMARY | 2022-06-16 17:56 | XMS_ITS | Encounter Summary ---
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 Collection Time Receive d Time (Source) Location / / Volume Laterality Specimen from 03/04/2013 10:25 03/04/2013 internal nose PM CDT 10:33 PM CDT (specimen) Izabela Pierson RN MICROBIOLOGY ORDERABLE Performing Organization Address City/State/ZIP Code Phon e Number [facility] [address] [address] LABORATORY [facility] [address] [place] [address] XR [...] T4 vertebral body as det apurva above. Faizna Fishman MD CT ORDERABLE CT TRAUMA CHEST/ABD/PEL [...] ??Extensive sinus opaci ty noted. Procedure Note Wlofgang Monroe MD - 03/04/2013Form atting of this [...] Type and Screen (03/04/2013 7:30 PM CDT) [facility] Method Time Signature GROUP AND RH A Positive 03/04/2013 [facility] 8:26 PM CDT ANTIBODY Negative 03/04/2013 [facility] SCREEN 8:26 PM CDT Specimen Anatomical Collection Method Collection Time Receive d Time (Source) Location / / Volume Laterality Blood specimen 03/04/2013 7:30 PM 013 7:34 (specimen) CDT PM CDT Faizan Fishman MD BLOOD BANK ORDERABLE Performing Organization Address City/[facility]/ZIP Code Phon e [place] [address] [address] [facility]LL (ABNORMAL) Alcohol (ETOH), Blood (03/04/2013 7:30 PM CDT) P athologist Signature ALCOHOL 36 (H) <6 mg/dL 03/04/2013 [facility] (ETOH), PLASMA 7:57 PM CDT LABORATORY Specimen Anatomical Collection Method Collection Time Receive d Time (Source) Location / / Volume Laterality Blood specimen 03/04/2013 7:30 PM 013 7:34 (specimen) CDT PM CDT Faizan Fishman MD CHEMISTRY ORDERABLE Performing Organization Address City/[facility]/ZIP [facility] Phon e Number [address] [address] (ABNORMAL) Gases Venous Peripheral (03/04/2013 7:30 PM CDT) Analysis Performed At Patho logist Time Signature PH VENOUS 7.34 7.30 - 03/04/2013 [facility] 7.40 7:57 PM CDT LABORATORY 02 SAT VENOUS 87.5 (H) 60.0 - 03/04/2013 [facility] 80.0 % 7:57 PM CDT LABORATORY PO2 VENOUS 55 (L) 75 - 100 03/04/2013 [facility] mm Hg 7:57 PM CDT LABORATORY BASE EXCESS -3.4 (L) -3.0 - 2.0 03/04/2013 [facility] VENOUS mMol/L 7:57 PM CDT LABORATORY PCO2 VENOUS 43 36 - 51 mm 03/04/2013 [facility] Hg 7:57 PM CDT LABORATORY HCO3 VENOUS 22 22 - 29 03/04/2013 [facility] mMol/L 7:57 PM CDT LABORATORY Specimen Anatomical Collection Method Collection Time Receive d Time (Source) Location / / Volume Laterality Blood specimen 03/04/2013 7:30 PM 013 7:34 (specimen) CDT PM CDT Faizan Fishman MD CHEMISTRY ORDERABLE Performing Organization Address City/State/ZIP Code Phon e Number [facility] [address] [place] [address] LABORATORY [facility] [address] [place] [address] (ABNORMAL) Lactic Acid (03/04/2013 7:30 PM CDT) athologist Signature LACTIC ACID 2.3 (H) 0.7 - 2.1 03/04/2013 [facility] mMol/L 7:38 PM CDT LABORATORY Specimen Anatomical Collection Method Collection Time Receive d Time (Source) Location / / Volume Laterality Blood specimen 03/04/2013 7:30 PM 013 7:34 (specimen) CDT PM CDT Faizan Fishman MD CHEMISTRY ORDERABLE Performing Organization Address City/[facility]/ZIP Code Phon e Number [facility] [address] [place] [address] LABORATORY [facility] [address] [place] [address] Trauma / Stroke Creat / GFR (03/04/2013 7:30 PM CDT) athologist Signature EST GFR >60 >60 mL/min 03/04/2013 [facility] (CKD-EPI) 7:45 PM CDT LABORATORY EST GFR IF >60 >60 mL/min 03/04/2013 [facility] AM 7:45 PM CDT LABORATORY CREATININE 0.80 0.40 - 03/04/2013 [facility] 1.10 mg/dL 7:45 PM CDT LABORATORY Specimen Anatomical Collection Method Collection Time Receive d Time (Source) Location / / Volume Laterality Blood specimen 03/04/2013 7:30 PM 013 7:34 (specimen) CDT PM CDT Narrative [facility] LABORATORY - 03/04/2013 7 :45 PM CDT Person Notified: JULIÁN , Unit: CT. ?? Time Notified: 7:45 PM Faizan Fishman MD CHEMISTRY ORDERABLE Performing Organization Address City/State/ZIP Code Phon e Number [facility] [address] [place] [address] LABORATORY [facility] [address] [place] [address] Glucose, Serum (03/04/2013 7:30 PM CDT) athologist [facility] GLUCOSE 85 60 - 100 03/04/2013 [facility] mg/dL 7:48 PM CDT LABORATORY Specimen Anatomical Collection Method Collection Time Receive d Time (Source) Location / / Volume Laterality Blood specimen 03/04/2013 7:30 PM 013 7:34 (specimen) CDT PM CDT Faizan Fishman MD CHEMISTRY ORDERABLE Performing Organization Address City/State/ZIP Code Phon e Number [facility] [address] [place] [address] LABORATORY [facility] [address] [place], [place] [address] Platelet Count (03/04/2013 7:30 PM CDT) [facility] [place] [place] PLATELET COUNT 196 150 - 400 03/04/2013 [facility] K/uL 7:41 PM CDT LABORATORY Specimen Anatomical Collection Method Collection Time Receive d Time (Source) Location / / Volume Laterality Blood specimen 03/04/2013 7:30 PM 013 7:34 (specimen) CDT PM CDT Faizan Fishman MD HEMATOLOGY ORDERABLE Performing Organization Address City/State/ZIP Code Phon e Number [facility] [address] [place] [address] LABORATORY [facility] [address] [place] [address] Hemoglobin (03/04/2013 7:30 PM CDT) athologist [facility] HEMOGLOBIN 12.4 12.0 - 16.0 03/04/2013 [facility] gm/dL 7:41 PM CDT LABORATORY Specimen Anatomical Collection Method Collection Time Receive d Time (Source) Location / / Volume Laterality Blood specimen 03/04/2013 7:30 PM 013 7:34 (specimen) CDT PM CDT Faizan Fishman MD HEMATOLOGY ORDERABLE Performing Organization Address City/[facility]/ZIP Code Phon e Number [facility] [address] [place] [address] LABORATORY [facility] [address] [place], [place] [address] ABORh Confirm (Lab Use Only) [...] Organization Address City/State/ZIP Code Phon e Number [facility] [address] [address] [facility] Extra Tube-Blood Bank (Lab Use Only) (03/04/2013 7:27 PM CDT) Specimen Anatomical Collection Method Collection Time Receive d Time (Source) Location / / Volume Laterality Blood specimen 03/04/2013 7:27 PM 013 7:36 (specimen) CDT PM CDT Faizan Fishman MD BLOOD BANK ORDERABLE Performing Organization Address City/State/ZIP Code Phon e Number [facility] [address] [place] [address] LABORATORY documented in this encounter Visit Diagnoses [...] at 2212, Until Tue03/05/13 at 0942, for vesthsxk-nf-ysdqan pain or if not tolerating oral intake Given 03/05/2013 3:29 AM CDT 0.5 mg HYDROmorphone (PF) (DILAUDID) syringe 0. 5-1 mg Given 03/15/2013 11:32 AM CDT 1 mg 0.5-1 mg, Intravenous, EVERY 1 HOUR NEEDED, Starting on Tue03/05/13 at 0937, Until Sole 03/15/13 at 1945, for mexgkwen-qh-qualtd pain or if not tolerating oral intake [...] Pierson RN) 0605 (Given - Provider: Izabela Piersno RN) 400 mg, Intravenous, EVERY 8 HOURS (NS), 24 doses, First dose on Tue03/09/13 at 1500, Last dose on Tue03/17/13 at 0700, for 60 Minutes docusate sodium (COLACE) (conc: 50 mg/5 mL) oral solut ion 100 mg 0748 (Given - Provider: Zulema Aparicio RN)195 (Given - Provider: Izabela Pierosn RN) 0907 (Given - Provider: Faizan Mixon [...] Zulema Aparicio RN )1999 (Withheld - Provider: Izablea Pierson RN) 09 (Given - Provider: Faizan [...] (CANCELED) 0038 (G iven - Provider: Liza Craven, LIZZ) 5 mg, Intravenous, EVERY 6 HOURS NEED ED, Starting Tue03/09/13 at 0908, Until Tue03/15/13 at 1945, Agitation HYDROmorphone (PF) (DILAUDID) syringe 0.5-1 mg 0035 (G iven - Provider: Liza rCaven RN)0231 (Given - Provider: Liza Craven RN)0353 [...] at 0937, Until Tue03/15/13 at 1945, for bflgqzgf-ic-zkpczb pain or if not tolerating oral intake [...] 0509 documented in this encounter Care Teams Technical Fellow Relationship Specialty Start Date End Date Line, Ed Referral PCP - General 03/04/13 07/18/13 ED REFERRAL LINE - ED USE ONLY Line, Ed Referral PCP - Primary Care Clinic 03/04/13 ED REFERRAL LINE - ED USE ONLY documented as of this encounter
--- OUTSIDE RECORDS SUMMARY | 2022-06-16 17:57 | XMS_ITS | Encounter Summary ---
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 [address] [place] [address] [phone] Social History Tobacco Use Types Packs/Day Years [...] glasses will not likely be feasible for director multimedia wear given difference in eye posturing at [...] field documented in this encounter Care Teams Vehicle Leasing And Rental Manager Relationship Specialty Start Date End Date Shukri Alfaroher PCP - General 05/31/17 [facility] [address] [place] [address] Jeremy Gibbs MD MD Ophthalmology 12/10/14 Jose Monahan MD MD Ophthalmology 12/10/14 Lise Mcqueen MD Ophthalmology 05/31/17 [address] [facility] [address] [place] [address] Jonh Garcia MD Assigned Surgical Provider 10/12/20 [address] [place] [address] documented as of this encounter
--- OUTSIDE RECORDS SUMMARY | 2022-06-16 17:57 | XMS_ITS | Encounter Summary ---
:1975 Author Organization [place] Address [address] [place] [address]. [place] [address] Care Team Providers Name Role Phone Jeremy Gibbs MD Unavailable Jose Monahan MD Unavailable Lise Mcqueen MD Unavailable [phone] Mar Alfaro Primary Care Provider Jonh Garcia MD Unavailable Reason for Visit Reason Comments Consult For Encounter Details Date Type Department Care Team Description 10/21/2021 Office Visit [facility] [address] onymous bilateral field defects in visual field (Primary Dx); Eye Clinic - Jennings T, OD Alternating esotropia; [address] [place] [address] Myopia of both eyes [address] [place] [address] [phone] Social History Tobacco Use Types Packs/Day Years [...] Name Priority Date/Time Associated Diagnosis Comme nts HI REFRACTION Routine 10/26/2021 9:11 AM CDT Myopia of both ey es documented in this encounter Visit Diagnoses Diagnosis 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
--- OUTSIDE RECORDS SUMMARY | 2022-06-16 17:57 | XMS_ITS | Encounter Summary ---
:1975 Author Organization [place] Address [address] [place] [address]. [place] [address] Care Team Providers Name Role Phone Jeremy Gibbs MD Unavailable Jose Monahan MD Unavailable Lise Mcqueen MD Unavailable [phone] Mar Alfaro Primary Care Provider Jonh Garcia MD Unavailable Encounter Details Date Type Department Care Team Description 11/13/2020 Telephone [facility] Leonora Javier MD - [id number] [place] [address] [place] [address] [place] [phone] Social History Tobacco Use Types Packs/Day [...] scheduled. Leonora Dahl MD Ophthalmology Resident, PGY-2 [facility] documented in this encounter Plan of Treatment Not on filedocumented as of this encounter Visit Diagnoses Not on filedocumented in this encounter Care Teams Bias Cutter Relationship Specialty Start Date End Date Mar Alfaro PCP - General 05/31/17 [facility] [address] [place] [address] Jeremy Gibbs MD MD Ophthalmology 12/10/14 Jose Monahan MD MD Ophthalmology 12/10/14 Lise Mcqueen MD Ophthalmology 05/31/[address] [address] Jonh Garcia MD Assigned Surgical Provider 10/12/20 [address] [place] [address] documented as of this encounter
--- OUTSIDE RECORDS SUMMARY | 2022-06-16 17:57 | XMS_ITS | Encounter Summary ---
:1975 Author Organization [place] Address [address] [place] [address]. [place] [address] Care Team Providers Name Role Phone Jeremy Gibbs MD Unavailable Jose Monahan MD Unavailable Lise Mcqueen MD Unavailable [phone] Mar Alfaro Primary Care Provider Ta Lane OD Unavailable Reason for Visit Reason Onset Date Comments Wanting script mailed. 04/23/2022 Encounter Details Date Type Department Care Team Description 04/23/2022 [facility] [address] , Wanting script mailed. Clinic - [place] [address] [facility] [address] [place] [address] [phone] Social History Tobacco Use Types Packs/Day Years [...] Hillary Conte - 04/23/2022 2:40 PM CDT [facility] Phone Message May a [...] on filedocumented in this encounter Care Teams Publications Manager Relationship Specialty Start Date End Date Mar Alfaro PCP - General 05/31/17 [facility] [address] [place] [address] Jeremy Gibbs MD MD Ophthalmology 12/10/14 Jose Monahan MD MD Ophthalmology 12/10/14 Lise Mcqueen MD Ophthalmology 05/31/[address] [place] [address], OD Assigned Surgical Provider 01/02/22 [address] [place] [address] documented as of this encounter
--- OUTSIDE RECORDS SUMMARY | 2022-06-16 17:57 | XMS_ITS | Encounter Summary ---
:1975 Author Organization [place] Address [address] [place] [address] Care Team Providers Name Role Phone Jeremy Gibbs MD Unavailable Jose Monahan MD Unavailable Lise Mcqueen MD Unavailable [phone] Mar Alfaro Primary Care Provider Jonh [...] on filedocumented in this encounter Care Teams Commissary Agent Relationship Specialty Start Date End Date Mar Alfaro PCP - General 05/31/17 [facility] [address] [place] [address] Jeremy Gibbs MD MD Ophthalmology 12/10/14 Jose Monahan MD MD Ophthalmology 12/10/14 Lise Mcqueen MD Ophthalmology 05/31/[address] [place] [address] Jonh Garcia MD Assigned Surgical Provider 10/12/20 [address] [place] [address] documented as of this encounter
--- OUTSIDE RECORDS SUMMARY | 2022-06-16 17:57 | XMS_ITS | Encounter Summary ---
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 management. Critical care time: please see [facility] for critical care time documentation Diagnosis: 1. [...] WB 109 (H) 60 - 100 03/15/2013 [facility] METER mg/dL 11:15 AM CDT LABORATORY Specimen Anatomical Collection Method Collection Time Receive d Time (Source) Location / / Volume Laterality Blood specimen 03/15/2013 4:29 AM 013 (specimen) CDT 11:15 AM CDT Mushtaq Cleary MD LAB POINT OF CARE TEST RESUL TS Performing Organization Address City/State/ZIP Code Phon e Number [address] [address] [phone] LABORATORY [facility] [address] [place], [place] [address] Sodium, Serum (03/15/2013 3:55 AM CDT)Only the most recent of34 resultswithin the time period is included. athologist Signature SODIUM 141 133 - 144 03/15/2013 [facility] mMol/L 4:39 AM CDT LABORATORY Specimen Anatomical Collection Method Collection Time Receive d Time (Source) Location / / Volume Laterality Blood specimen 03/15/2013 3:55 AM 013 4:10 (specimen) CDT AM CDT Miles Kevin MD CHEMISTRY ORDERABLE Performing Organization Address City/[facility]/ZIP [facility] Phon e Number [facility] [address] [place] [address] LABORATORY [facility] [address] [place], [place] [address] Magnesium (03/15/2013 3:55 AM CDT)Only the most recent of11 resultswithin the time period is included. athologist Signature Magnesium 2.5 1.7 - 2.5 03/15/2013 [facility] mg/dL 4:39 AM CDT LABORATORY Specimen Anatomical Collection Method Collection Time Receive d Time (Source) Location / / Volume Laterality Blood specimen 03/15/2013 3:55 AM 013 4:10 (specimen) CDT AM CDT Carson Vazquez MD CHEMISTRY ORDERABLE Performing Organization Address [facility] Phon e Number [place] [address] [place] [address] LABORATORY [place] [address] [place] [address] Potassium, Serum (03/15/2013 3:55 AM CDT)Only the most recent of16 resultswithin the time period is included. athologist Signature POTASSIUM 3.8 3.5 - 5.0 03/15/2013 [facility] mMol/L 4:39 AM CDT LABORATORY Specimen Anatomical Collection Method Collection Time Receive d Time (Source) Location / / Volume Laterality Blood specimen 03/15/2013 3:55 AM 013 4:10 (specimen) CDT AM CDT Carson Vazquez MD CHEMISTRY ORDERABLE Performing Organization Address City/[facility]/ZIP [facility] Phon e Number [facility] [address] [place] [address] LABORATORY [facility] [address] [place] [address] Sodium, Urine Random (03/14/2013 3:55 AM CDT)Only the most recent of9 results within the time period is included. athologist Signature SODIUM, URINE 49 mMol/L 03/14/2013 [facility] RANDOM 4:20 AM CDT LABORATORY Specimen Anatomical Collection Method Collection Time Receive d Time (Source) Location / / Volume Laterality Urine specimen 03/14/2013 3:55 AM 013 3:58 (specimen) CDT AM CDT Faizan Fishman MD CHEMISTRY ORDERABLE Performing Organization Address City/[facility] Phon e Number [facility] [address] [place] [address] [place] [address] LABORATORY [facility] [address] [place] [address] [place] [address] Prealbumin (03/14/2013 3:50 AM CDT)Only the most recent of3 resultswithin the time period is included. athologist Signature PREALBUMIN 21 18 - 38 03/14/2013 [facility] mg/dL 4:30 AM CDT LABORATORY Specimen Anatomical Collection Method Collection Time Receive d Time (Source) Location / / Volume Laterality Blood specimen 03/14/2013 3:50 AM 013 3:59 (specimen) CDT AM CDT Carson Vazquez MD CHEMISTRY ORDERABLE Performing Organization Address [facility] Phon e Number [facility] [address] [place] [address] [address] Osmolality, Blood (03/14/2013 3:50 AM CDT)Only the most recent of25 results within the time period is included. athologist Signature Osmolality, 286 275 - 295 03/14/2013 [facility] Blood mOsm/Kg 8:01 AM CDT LABORATORY Specimen Anatomical Collection Method Collection Time Receive d Time (Source) Location / / Volume Laterality Blood specimen 03/14/2013 3:50 AM 013 3:59 (specimen) CDT AM CDT Carson Vazquez MD CHEMISTRY ORDERABLE Performing Organization Address City/[facility] Phon e Number [facility] [address] [address] LABORATORY [facility] [address] [address] XR CHEST AP PORT [...] arslan st was obtained. FINDINGS/ Procedure Note Car Starter, Jon Paulino MD - 03/13/2013Formattin g of [...] of8 resultswithin the time period is included. [facility] gist Method Time Signature SODIUM 138 133 - 144 03/12/2013 [facility] mMol/L 4:13 AM CDT LABORATORY POTASSIUM 3.7 3.5 - 5.0 03/12/2013 [facility] mMol/L 4:13 AM CDT LABORATORY CHLORIDE 107 99 - 111 03/12/2013 [facility] mMol/L 4:13 AM CDT LABORATORY CARBON DIOXIDE 26.0 21.0 - 03/12/2013 [facility] 30.0 4:13 AM CDT LABORATORY mMol/L BUN (UREA 13 6 - 24 03/12/2013 [facility] NITRO) mg/dL 4:13 AM CDT LABORATORY CREATININE 0.35 (L) 0.40 - 03/12/2013 [facility] 1.10 mg/dL 4:13 AM CDT LABORATORY EST GFR >60 >60 mL/min 03/12/2013 [facility] (CKD-EPI) 4:13 AM CDT LABORATORY EST GFR IF >60 >60 mL/min 03/12/2013 [facility] AM 4:13 AM CDT LABORATORY GLUCOSE 122 (H) 60 - 100 03/12/2013 [facility] mg/dL 4:13 AM CDT LABORATORY CALCIUM, SERUM 8.4 (L) 8.6 - 10.2 03/12/2013 [facility] L mg/dL 4:13 AM CDT LABORATORY ANION GAP 5.0 0.0 - 15.0 03/12/2013 [facility] mMol/L 4:13 AM CDT LABORATORY Specimen Anatomical Collection Method Collection Time Receive d Time (Source) Location / / Volume Laterality Blood specimen 03/12/2013 3:40 AM 013 3:48 (specimen) CDT AM CDT Carson Vazquez MD CHEMISTRY ORDERABLE Performing Organization Address City/State/ZIP Code Phon e Number [address] [address] LABORATORY [facility] [address] [place] [address] (ABNORMAL) CBC (Hgb,Hct,WBC,RBC,Platelet) (03/12/2013 3:40 AM CDT)Only the most recent of7 resultswithin the time period is included. [facility] gist Method Time Signature WBC 9.6 4.3 - 10.8 03/12/2013 [facility] K/uL 4:05 AM CDT LABORATORY RBC 2.94 (L) 4.20 - 03/12/2013 [facility] 5.40 M/uL 4:05 AM CDT LABORATORY HEMOGLOBIN 9.3 (L) 12.0 - 03/12/2013 [facility] 16.0 gm/dL 4:05 AM CDT LABORATORY HEMATOCRIT 27.4 (L) 36.0 - 03/12/2013 [facility] 48.0 % 4:05 AM CDT LABORATORY MCV 93 80 - 100 03/12/2013 [facility] fl 4:05 AM CDT LABORATORY MCH 32 27 - 33 pg 03/12/2013 [facility] 4:05 AM CDT LABORATORY MCHC 34 33 - 36 03/12/2013 [facility] gm/dL 4:05 AM CDT LABORATORY RDW 12.7 11.5 - 03/12/2013 [facility] 14.5 % 4:05 AM CDT LABORATORY PLATELET COUNT 346 150 - 400 03/12/2013 [facility] K/uL 4:05 AM CDT LABORATORY MPV 9.9 6.5 - 12.0 03/12/2013 [facility] 4:05 AM CDT LABORATORY Specimen Anatomical Collection Method Collection Time Receive d Time (Source) Location / / Volume Laterality Blood specimen 03/12/2013 3:40 AM 013 3:48 (specimen) CDT AM CDT Carson Vazquez MD HEMATOLOGY ORDERABLE Performing Organization Address City/State/ZIP Code Phon e Number [address] [address] (ABNORMAL) CBC / Diff (03/09/2013 5:43 AM CDT) [facility] gist Method Time Signature WBC 8.4 4.3 - 10.8 03/09/2013 [facility] K/uL 6:13 AM CDT LABORATORY RBC 3.04 (L) 4.20 - 03/09/2013 [facility] 5.40 M/uL 6:13 AM CDT LABORATORY HEMOGLOBIN 9.4 (L) 12.0 - 03/09/2013 [facility] 16.0 gm/dL 6:13 AM CDT LABORATORY HEMATOCRIT 29.2 (L) 36.0 - 03/09/2013 [facility] 48.0 % 6:13 AM CDT LABORATORY MCV 96 80 - 100 03/09/2013 [facility] fl 6:13 AM CDT LABORATORY MCH 31 27 - 33 pg 03/09/2013 [facility] 6:13 AM CDT LABORATORY MCHC 32 (L) 33 - 36 03/09/2013 [facility] gm/dL 6:13 AM CDT LABORATORY RDW 12.6 11.5 - 03/09/2013 [facility] 14.5 % 6:13 AM CDT LABORATORY PLATELET COUNT 235 150 - 400 03/09/2013 [facility] K/uL 6:13 AM CDT LABORATORY MPV 9.9 6.5 - 12.0 03/09/2013 [facility] 6:13 AM CDT LABORATORY PMN % 79.3 (H) 40.0 - 03/09/2013 [facility] 77.0 % 6:13 AM CDT LABORATORY LYMPH % 10.7 (L) 24.0 - 03/09/2013 [facility] 44.0 % 6:13 AM CDT LABORATORY MONO % 8.0 (H) 3.0 - 6.0 03/09/2013 [facility] % 6:13 AM CDT LABORATORY EOS % 1.8 0.0 - 3.0 03/09/2013 [facility] % 6:13 AM CDT LABORATORY BASO % 0.2 0.0 - 1.0 03/09/2013 [facility] % 6:13 AM CDT LABORATORY PMN ABSOLUTE 6.62 1.80 - 03/09/2013 [facility] 7.80 K/uL 6:13 AM CDT LABORATORY LYMPH ABSOLUTE 0.89 (L) 1.00 - 03/09/2013 [facility] 4.00 K/uL 6:13 AM CDT LABORATORY MONO ABSOLUTE 0.67 0.00 - 03/09/2013 [facility] 1.00 K/uL 6:13 AM CDT LABORATORY EOS ABSOLUTE 0.15 0.00 - 03/09/2013 [facility] 0.45 K/uL 6:13 AM CDT LABORATORY BASO ABSOLUTE 0.02 0.00 - 03/09/2013 [facility] 0.20 K/ul 6:13 AM CDT LABORATORY Specimen Anatomical Collection Method Collection Time Receive d Time (Source) Location / / Volume Laterality Blood specimen 03/09/2013 5:43 AM 013 5:43 (specimen) CDT AM CDT Carson Vazquez MD HEMATOLOGY ORDERABLE Performing Organization Address City/State/ZIP Code Phon e Number [facility] [address] [place] [address] LABORATORY [facility] [address] [place] [address] (ABNORMAL) Creatine Kinase (CK Total) (03/09/2013 5:43 AM CDT)Only the most recent of4 resultswithin the time period is included. P athologist Signature CK TOTAL 474 (H) 15 - 170 03/09/2013 [facility] IU/L 6:18 AM CDT LABORATORY Specimen Anatomical Collection Method Collection Time Receive d Time (Source) Location / / Volume Laterality Blood specimen 03/09/2013 5:43 AM 013 5:43 (specimen) CDT AM CDT Carson Vazquez MD CHEMISTRY ORDERABLE Performing Organization Address City/[facility]/ZIP Code Phon e Number [facility] [address] [place] [address] LABORATORY [facility] [address] [place] [address] Triglycerides, Serum (03/09/2013 5:43 AM CDT)Only the most recent of5 results within the time period is included. Patholo gist Method Time Signature TRIGLYCERIDES 95 <150 mg/dL 03/09/2013 [facility] PROFILE 6:18 AM CDT LABORATORY Specimen Anatomical Collection Method Collection Time Receive d Time (Source) Location / / Volume Laterality Blood specimen 03/09/2013 5:43 AM 013 5:43 (specimen) CDT AM CDT Carson Vazquez MD CHEMISTRY ORDERABLE Performing Organization Address City/State/ZIP Code Phon e Number [facility] [address] [place] [address] LABORATORY [facility] [address] [place] [address] Procalcitonin (03/08/2013 2:00 PM CDT) P athologist Signature Procalcitonin <0.10 ng/ml 03/08/2013 [facility] 3:26 PM CDT LABORATORY Specimen Anatomical Collection Method Collection Time Receive d Time (Source) Location / / Volume Laterality Blood specimen 03/08/2013 2:00 PM 013 2:13 (specimen) CDT PM CDT Narrative [facility] LABORATORY - 03/08/2013 3 :26 PM [...] Organization Address City/State/ZIP Code Phon e Number [facility] [address] [address] LABORATORY [facility] [address] [address] XR FEMUR PORT RT [...] of2 resultswithin the time period is included. [facility] Method Time Signature Sputum Heavy growth of 03/11/2013 [place] Culture Enterobacter 8:42 AM T [facility] cloacae (A) LABORATORY Sputum Heavy growth of 03/11/2013 [place] Culture Serratia 8:42 AM T [facility] marcescens (A) LABORATORY Gram Stain Many Gram 03/11/2013 [place] Result Negative Bacilli 8:42 AM [facility] LABORATORY Gram Stain Many PMN's / LPF 03/11/2013 [place] Result 8:42 AM [facility] LABORATORY Gram Stain <10 Epithelial 03/11/2013 [place] Result cells / LPF 8:42 AM CDT [facility] LABORATORY Specimen Anatomical Location Collection Method Collection [...] Organization Address City/State/ZIP Code Phon e Number [address] [address] [phone] [address] CULT-BLOOD (03/08/2013 10:38 AM CDT)Only the most recent of2 resultswithin the time period is included. [facility] gist Method Time Signature Blood Culture No growth 5 03/13/2013 [facility] L days. 4:11 PM CDT LABORATORY Specimen Anatomical Collection Method Collection Time Receive d Time (Source) Location / / Volume Laterality Blood specimen BLOOD SPECIMEN / 03/08/2013 10:38 03/08 (specimen) Unknown AM CDT 11:14 AM CDT Miles Kevin MD MICROBIOLOGY ORDERABLE Performing Organization Address City/[facility]/ZIP Code Phon e Number [facility] [address] [place] [address] LABORATORY [facility] [address] [place] [address] (ABNORMAL) Urine Culture (03/08/2013 10:38 AM CDT) [facility] gist Method Time Signature Urine Culture 40,000 03/09/2013 [facility] cfu/ml of 3:41 PM CDT LABORATORY Yeast. (A) Specimen Anatomical Collection Method Collection Time Receive d Time (Source) Location / / Volume Laterality Urine specimen 03/08/2013 10:38 3 2:13 (specimen) AM CDT PM CDT Miles Kevin MD MICROBIOLOGY ORDERABLE Performing Organization Address [facility]/ZIP Code Phon e Number [facility] [address] [address] LABORATORY [facility] [address] [place], [place] [address] CT HEAD W/O IV CONTRAST [...] Cleary MD URINE ORDERABLE Performing Organization Address City/[facility]/ZIP Code Phon e Number [address] [address] LABORATORY Extra Tube-SST (Lab Use Only) (03/07/2013 5:10 AM CDT) Specimen Anatomical Collection Method Collection Time Receive d Time (Source) Location / / Volume Laterality Blood specimen 03/07/2013 5:10 AM 013 5:39 (specimen) CDT AM CDT Mushtaq Cleary MD CHEMISTRY ORDERABLE Performing Organization Address City/State/ZIP Code Phon e Number [address] [place] [address] LABORATORY Extra Tube PST (Lab Use Only) (03/07/2013 5:10 AM CDT) Specimen Anatomical Collection Method Collection Time Receive d Time (Source) Location / / Volume Laterality Blood specimen 03/07/2013 5:10 AM 013 5:39 (specimen) CDT AM CDT Mushtaq Cleary MD CHEMISTRY ORDERABLE Performing Organization Address City/[facility]/ZIP [facility] Phon e Number [address] [place] [address] LABORATORY (ABNORMAL) POCT Gases Arterial (03/06/2013 4:20 AM CDT) [facility] Method Time Signature POCT PH-ART 7.39 7.35 - 03/09/2013 [facility] 7.45 3:15 PM CDT LABORATORY POCT PCO2-ART 45 33 - 45 mm 03/09/2013 [facility] Hg 3:15 PM CDT LABORATORY POCT PO2-ART 111.7 (H) 75 - 100 03/09/2013 [facility] mm Hg 3:15 PM CDT LABORATORY POCT HCO3-ART 27 22 - 29 03/09/2013 [facility] mMol/L 3:15 PM CDT LABORATORY POCT BASE 1.9 -3.0 - 2.0 03/09/2013 [facility] EXCESS mMol/L 3:15 PM CDT LABORATORY POCT CSO2 98.3 (H) 92.0 - 03/09/2013 [facility] 98.0 % Sat 3:15 PM CDT LABORATORY POCT cTCO2 28.6 mMol/L 03/09/2013 [facility] 3:15 PM CDT LABORATORY Specimen Anatomical Collection Method Collection Time Receive d Time (Source) Location / / Volume Laterality Arterial blood 03/06/2013 4:20 AM 013 3:15 specimen CDT PM CDT (specimen) Mushtaq Cleary MD LAB POINT OF CARE TEST RESUL TS Performing Organization Address City/State/ZIP Code Phon e Number [place] [phone] [place] [address] [address] (ABNORMAL) Electrolytes (03/05/2013 11:11 AM CDT)Only the most recent of3 resultswithin the time period is included. athologist Signature SODIUM 144 133 - 144 03/05/2013 [facility] mMol/L 11:35 AM CDT LABORATORY POTASSIUM 3.8 3.5 - 5.0 03/05/2013 [facility] mMol/L 11:35 AM CDT LABORATORY CHLORIDE 113 (H) 99 - 111 03/05/2013 [facility] mMol/L 11:35 AM CDT LABORATORY CARBON DIOXIDE 26.0 21.0 - 03/05/2013 [facility] 30.0 11:35 AM CDT LABORATORY mMol/L ANION GAP 5.0 0.0 - 15.0 03/05/2013 [facility] mMol/L 11:35 AM CDT LABORATORY Specimen Anatomical Collection Method Collection Time Receive d Time (Source) Location / / Volume Laterality Blood specimen 03/05/2013 11:11 3 (specimen) AM CDT 11:15 AM CDT Mushtaq Cleary MD CHEMISTRY ORDERABLE Performing Organization Address City/[facility]/ZIP Code Phon e Number [facility] [address] [place], [place] [address] LABORATORY [facility] [address] [place], [place] [address] (ABNORMAL) Protime & INR (03/05/2013 4:39 AM CDT)Only the most recent of2 resultswithin the time period is included. athologist Signature PROTIME 9.9 (L) 10.0 - 13.0 03/05/2013 [facility] sec. 5:02 AM CDT LABORATORY INR 1.0 1.0 - 1.2 03/05/2013 [facility] 5:02 AM CDT LABORATORY Specimen Anatomical Collection Method Collection Time Receive d Time (Source) Location / / Volume Laterality Blood specimen 03/05/2013 4:39 AM 013 4:44 (specimen) CDT AM CDT Mushtaq Cleary MD COAGULATION ORDERABLE Performing Organization Address City/State/ZIP Code Phon e Number [facility] [address] [place] [address] LABORATORY [facility] [address] [place] [address] ADMIT (MRSA) Nasal Culture (03/04/2013 10:25 PM CDT) [facility] gist Method Time Signature Admit MRSA No Methicillin 03/06/2013 [place] Culture resistant 10:17 AM [facility] Staph. aureus CDT LABORATORY (MRSA) isolated. Specimen Anatomical Collection Method Collection Time Receive d Time (Source) Location / / Volume Laterality Specimen from 03/04/2013 10:25 03/04/2013 internal nose PM CDT 10:33 PM CDT (specimen) Izabela Pierson RN MICROBIOLOGY ORDERABLE Performing Organization Address City/State/ZIP Code Phon e Number [facility] [address] [place] [address] [address] LABORATORY [facility] [address] [address] XR HAND PORT [...] Type and Screen (03/04/2013 7:30 PM CDT) [facility] Method Time Signature GROUP AND RH A Positive 03/04/2013 [facility] 8:26 PM CDT ANTIBODY Negative 03/04/2013 [facility] SCREEN 8:26 PM CDT Specimen Anatomical Collection Method Collection Time Receive d Time (Source) Location / / Volume Laterality Blood specimen 03/04/2013 7:30 PM 013 7:34 (specimen) CDT PM CDT Faizan Fishman MD BLOOD BANK ORDERABLE Performing Organization Address City/[facility]/ZIP Code Phon e Number [place] [address] [address] [facility] (ABNORMAL) Alcohol (ETOH), Blood (03/04/2013 7:30 PM CDT) P athologist Signature ALCOHOL 36 (H) <6 mg/dL 03/04/2013 [facility] (ETOH), PLASMA 7:57 PM CDT LABORATORY Specimen Anatomical Collection Method Collection Time Receive d Time (Source) Location / / Volume Laterality Blood specimen 03/04/2013 7:30 PM 013 7:34 (specimen) CDT PM CDT Faizan Fishman MD CHEMISTRY ORDERABLE Performing Organization Address City/[facility]/ZIP Code Phon e Number [facility] [address] [place] [address] [phone] 5542 (ABNORMAL) Gases Venous Peripheral (03/04/2013 7:30 PM CDT) Analysis Performed At Patho logist Time Signature PH VENOUS 7.34 7.30 - 03/04/2013 [facility] 7.40 7:57 PM CDT LABORATORY 02 SAT VENOUS 87.5 (H) 60.0 - 03/04/2013 [facility] 80.0 % 7:57 PM CDT LABORATORY PO2 VENOUS 55 (L) 75 - 100 03/04/2013 [facility] mm Hg 7:57 PM CDT LABORATORY BASE EXCESS -3.4 (L) -3.0 - 2.0 03/04/2013 [facility] VENOUS mMol/L 7:57 PM CDT LABORATORY PCO2 VENOUS 43 36 - 51 mm 03/04/2013 [facility] Hg 7:57 PM CDT LABORATORY HCO3 VENOUS 22 22 - 29 03/04/2013 [facility] mMol/L 7:57 PM CDT LABORATORY Specimen Anatomical Collection Method Collection Time Receive d Time (Source) Location / / Volume Laterality Blood specimen 03/04/2013 7:30 PM 013 7:34 (specimen) CDT PM CDT Faizan Fishman MD CHEMISTRY ORDERABLE Performing Organization Address City/State/ZIP Code Phon e Number [facility] [address] [place] [address] LABORATORY [facility] [address] [place] [place] 55[address] (ABNORMAL) Lactic Acid (03/04/2013 7:30 PM CDT) athologist Signature LACTIC ACID 2.3 (H) 0.7 - 2.1 03/04/2013 [facility] mMol/L 7:38 PM CDT LABORATORY Specimen Anatomical Collection Method Collection Time Receive d Time (Source) Location / / Volume Laterality Blood specimen 03/04/2013 7:30 PM 013 7:34 (specimen) CDT PM CDT Faizan Fishman MD CHEMISTRY ORDERABLE Performing Organization Address City/State/ZIP Code Phon e Number [facility] [address] [place] [address] [phone] LABORATORY [facility] [address] [place], [place] 5542 Trauma / Stroke Creat / GFR (03/04/2013 7:30 PM CDT) P athologist Signature EST GFR >60 >60 mL/min 03/04/2013 [facility] (CKD-EPI) 7:45 PM CDT LABORATORY EST GFR IF >60 >60 mL/min 03/04/2013 [facility] AM 7:45 PM CDT LABORATORY CREATININE 0.80 0.40 - 03/04/2013 [facility] 1.10 mg/dL 7:45 PM CDT LABORATORY Specimen Anatomical Collection Method Collection Time Receive d Time (Source) Location / / Volume Laterality Blood specimen 03/04/2013 7:30 PM 013 7:34 (specimen) CDT PM CDT Narrative [facility] LABORATORY - 03/04/2013 7 :45 PM CDT Person Notified: JULIÁN , Unit: CT. ?? Time Notified: 7:45 PM Faizan Fishman MD CHEMISTRY ORDERABLE Performing Organization Address City/State/ZIP Code Phon e Number [facility] [address] [place] [address] LABORATORY [facility] [address] [place] 55[address] Glucose, Serum (03/04/2013 7:30 PM CDT) athologist [facility] GLUCOSE 85 60 - 100 03/04/2013 [facility] mg/dL 7:48 PM CDT LABORATORY Specimen Anatomical Collection Method Collection Time Receive d Time (Source) Location / / Volume Laterality Blood specimen 03/04/2013 7:30 PM 013 7:34 (specimen) CDT PM CDT Faizan Fishman MD CHEMISTRY ORDERABLE Performing Organization Address City/State/ZIP Code Phon e Number [facility] [address] [place] [address] LABORATORY [facility] [address] [place] 55[address] Platelet Count (03/04/2013 7:30 PM CDT) [facility] PLATELET COUNT 196 150 - 400 03/04/2013 [facility] K/uL 7:41 PM CDT LABORATORY Specimen Anatomical Collection Method Collection Time Receive d Time (Source) Location / / Volume Laterality Blood specimen 03/04/2013 7:30 PM 013 7:34 (specimen) CDT PM CDT Faizan Fishman MD HEMATOLOGY ORDERABLE Performing Organization Address City/[facility]/ZIP Code Phon e Number [facility] [address] [place] [address] [phone] LABORATORY [facility] [address] [place] [address] Hemoglobin (03/04/2013 7:30 PM CDT) athologist [facility] HEMOGLOBIN 12.4 12.0 - 16.0 03/04/2013 [facility] gm/dL 7:41 PM CDT LABORATORY Specimen Anatomical Collection Method Collection Time Receive d Time (Source) Location / / Volume Laterality Blood specimen 03/04/2013 7:30 PM 013 7:34 (specimen) CDT PM CDT Faizan Fishman MD HEMATOLOGY ORDERABLE Performing Organization Address City/State/ZIP Code Phon e Number [facility] [address] [place] [address] LABORATORY [facility] [address] [facility] [place] 5542 ABORh Confirm (Lab Use Only) [...] Organization Address City/State/ZIP Code Phon e Number [facility] [address] [address] [facility] Extra Tube-Blood Bank (Lab Use Only) (03/04/2013 7:27 PM CDT) Specimen Anatomical Collection Method Collection Time Receive d Time (Source) Location / / Volume Laterality Blood specimen 03/04/2013 7:27 PM 013 7:36 (specimen) CDT PM CDT Faizan Fishman MD BLOOD BANK ORDERABLE Performing Organization Address City/State/ZIP Code Phon e Number [facility] [address] [place] [address] LABORATORY documented in this encounter Visit Diagnoses [...] pt is awake) 0738 (Given - Provider: Lizteh Nixon, LIZZ) Each Eye, EVERY 12 HOURS, [...] 0937, Until Sole 03/15/13 at 1945, for hlhtqewe-px-[id number] pain or if not tolerating oral intake [...] 0509 documented in this encounter Care Teams Surgery Specialist Relationship Specialty Start Date End Date Line, Ed Referral PCP - General 03/04/13 07/18/13 ED REFERRAL LINE - ED USE ONLY Line, Ed Referral PCP - Primary Care Clinic 03/04/13 ED REFERRAL LINE - ED USE ONLY documented as of this encounter
--- OUTSIDE RECORDS SUMMARY | 2022-06-16 17:57 | XMS_ITS | Encounter Summary ---
:1975 Author Organization [place] Address [address] [place] [place] [address] Care Team Providers Name Role Phone Jeremy Gibbs MD Unavailable Jose Monahan MD Unavailable Lise Mcqueen MD Unavailable [phone] Mar Alfaro Primary Care Provider Jonh Garcia MD Unavailable Reason for Visit Reason Comments Patient/info Update Encounter Details Date Type Department Care Team Description 12/01/[address] [facility] - Dick Borja MD (Primary Dx) [address] [place] [phone] Social History Tobacco Use [...] adnexa documented in this encounter Care Teams Edge Gluer Relationship Specialty Start Date End Date Mar Alfaro PCP - General 05/31/17 [facility] [address] [place] [address] Jeremy Gibbs MD MD Ophthalmology 12/10/14 Jose Monahan MD MD Ophthalmology 12/10/14 Lise Mcqueen MD Ophthalmology 05/31/[address] [place], [place] [address] Jonh Garcia MD Assigned Surgical Provider 10/12/20 [address] [place], [place] [address] documented as of this encounter
--- OUTSIDE RECORDS SUMMARY | 2022-06-16 17:57 | XMS_ITS | Encounter Summary ---
:1975 Author Organization [place] Address [address] [place] [address] Care Team Providers Name Role Phone Jeremy Gibbs MD Unavailable Jose Monahan MD Unavailable Lise Mcqueen MD Unavailable [phone] Mar Alfaro Primary Care Provider Jonh [...] on filedocumented in this encounter Care Teams Motion Picture Operator Relationship Specialty Start Date End Date Mar Alfaro PCP - General 05/31/17 [facility] [address] [place] [address] Jeremy Gibbs MD MD Ophthalmology 12/10/14 Jose Monahan MD MD Ophthalmology 12/10/14 Lise Mcqueen MD Ophthalmology 05/31/[address] [place] [address] Jonh Garcia MD Assigned Surgical Provider 10/12/20 [address] [place] [address] documented as of this encounter
--- OUTSIDE RECORDS SUMMARY | 2022-06-16 17:57 | XMS_ITS | Encounter Summary ---
:1975 Author Organization [place] Address [address] [place] [address] Care Team Providers Name Role Phone Jeremy Gibbs MD Unavailable Jose Monahan MD Unavailable Lise Mcqueen MD Unavailable [phone] Mar Alfaro Primary Care Provider Jonh Garcia MD Unavailable Reason for Visit Reason Onset Date Comments Appointment 12/04/2020 Post-OP IN-CLINIC Encounter Details Date Type Department Care Team Description 12/04/2020 Telephone [facility] Eye Jonh Garcia A ppointment (Post-OP Clinic - Dick SOLO IN-CLINIC) [address] [place] [phone] Social History Tobacco Use Types Packs/Day [...] on filedocumented in this encounter Care Teams Test Man Relationship Specialty Start Date End Date Mar Alfaro PCP - General 05/31/17 [facility] [address] [place] [address] Jeremy Gibbs MD MD Ophthalmology 12/10/14 Jose Monahan MD MD Ophthalmology 12/10/14 Lise Mcqueen MD Ophthalmology 05/31/[address] [place] [address] Jonh Garcia MD Assigned Surgical Provider 10/12/20 909 [place] [address] documented as of this encounter
--- OUTSIDE RECORDS SUMMARY | 2022-06-16 17:57 | XMS_ITS | Clinical Summary ---
:1975 Author Organization [place] Address [address] [place] [address] Care Team Providers Name Role Phone Jeremy Gibbs MD Unavailable Jose Monahan MD Unavailable Lise Mcqueen MD Unavailable [phone] Mar Alfaro Primary Care Provider Ta [...] Active (FISH OIL + D3) mouth daily 1532-2467 MG-UNIT CAPSIndications: NOT TAKING hydrOXYzine (ATARAX) 25 [...] max of 2 tabs in 24 hours. 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 from Last 3 Months Immunizations Name Administration Dates Next Due Dates Unk - Records Requested 01/23/2003 Family History Medical History Relation Comments Allergies Brother 1 spring Cardiovascular Father NC twice Hypertension Father Hypertension Maternal Grandfather Hypertension [...] 1990 HEPATITIS C SCREENING 1993 PAP 1996 LIPID 2020 COVID-19 Vaccine (3 - 12/02/2021 [...] Phone Addre ss Type Group MEDICARE MEDICARE [id number] 2015-Presmichael [phone] [facility] Medicare t 40 [address] [place] [address] BLUE PLUS BLUE PLUS [id number] 2019-Presmichael [phone] [address] [address] HMO ADVANTAGE MA t [address] [place] [address] Key Peres Personal/Famil Self 1975 13 [address]LIE ROONEY y (Home) [place] [phone] Care Teams Datapower Developer Relationship Specialty Start Date End Date Mar Alfaro PCP - General 05/31/17 [facility] [address] [place] [address] Jeremy Gibbs MD MD Ophthalmology 12/10/14 Jose Monahan MD MD Ophthalmology 12/10/14 Lise Mcqueen MD Ophthalmology 05/31/[address] [place] [address], OD Assigned Surgical Provider 01/02/22 9[address] [place] [address]
--- OUTSIDE RECORDS SUMMARY | 2022-06-16 17:57 | XMS_ITS | Encounter Summary ---
:1975 Author Organization [place] Address [address] [place] [address] Care Team Providers Name Role Phone Jeremy Gibbs MD Unavailable Jose Monahan MD Unavailable Lise Mcqueen MD Unavailable [phone] Mar Alfaro Primary Care Provider Jonh [...] contact Unable to assess 09/28/2021 1:16 PM ORGANIC GARDENING TEACHER with someone who was confirmed or suspected to have Coronavirus / COVID-19? documented as of this encounter Plan of Treatment Not on filedocumented as of this encounter Visit Diagnoses Not on filedocumented in this encounter Care Teams Order Builder Loader Relationship Specialty Start Date End Date Mar Alfaro PCP - General 05/31/17 [facility] [address] [place] [address] Jeremy Gibbs MD MD Ophthalmology 12/10/14 Jose Monahan MD MD Ophthalmology 12/10/14 Lise Mcqueen MD Ophthalmology 05/31/[address] [place] [address] Jonh Garcia MD Assigned Surgical Provider 10/12/20 909 [place] [address] documented as of this encounter
--- OUTSIDE RECORDS SUMMARY | 2022-06-16 17:58 | XMS_ITS | Encounter Summary ---
:1975 Author Organization [place] Address [address] [place] [address]. [place] [address] Care Team Providers Name Role Phone Jeremy Gibbs MD Unavailable Jose Monahan MD Unavailable Lise Mcqueen MD Unavailable [phone] Mar Alfaro Primary Care Provider Jonh Garcia MD Unavailable Reason for Visit Reason Comments Pre-Op Exam Encounter Details Date Type Department Care Team Description 11/10/2020 Virtual Visit [facility] Maliha Casillas Pre-op examination Preoperative Assessment VIOLET Ho SKETCHER (Primary Dx) [address] [place] [phone] Anesthesia Record Procedure Summary Procedure Name Responsible [...] visitors. All visitors must wear face mask. Senior Software Qa Analyst parking is available for anyone with mobility limitations or disabilities. ([employer] 24 hours/ 7 days a week; [place] [employer] 7 am- 3:30 pm, Mon- Fri) Please come to: [facility] [address] [address] - Proceed to the 5th floor to check into the Ambulatory Surgery Center. >> There will be patient concierges on the 1st and 5th floor, for assistance or an escort, ifyou would like. >> Please call [phone] with any questions. What can I eat [...] or fragrance. - No makeup or fingernail georgian. - Bring your ID and insurance card. - All patients are required to have a Covid-19 test within 4 days of surgery/procedure. -Patients will be contacted by the [facility] scheduling team within 1 week of surgery to make an appointment. - Patients may call the Scheduling team at [phone] if they have not been scheduled within [...] contact the Pre Admission Nursing Office at [phone]. - If you have health changes between [...] be resent by: Text to cell phone: [phone] Will anyone else be joining your video visit? No HPI Review of Systems Objective Vitals - Patient Reported Pain Score: Moderate Pain (5) Pain Loc: Abdomen Physical Exam N Dk LUGO documented in this encounter H&P Notes Maliha Casillas APRN SKETCHER - 11/10/2020 2:30 PM CDT Images from [...] for MsKeyon Peres was seen by Dr. Garcia on [...] she had an emergent laparoscopic cholecystectomy at [facility] on 11/06/2020. She entered through the [...] ??? Fish Oil-Cholecalciferol (FISH OIL + D3) 0355-3374 MG-UNIT CAPS Take 1 capsule by mouth [...] file Gets together: Not on file Attends religion service: Not on file Active member of [...] Relation Age of Onset ??? Cardiovascular Father CT twice ??? Allergies Brother spring ??? Allergies [...] - Jonh Batres MD on 11/12/2020 at [facility] [place] under MAC with local. She has the [...] Maliha Casillas APRN CNP Preoperative Assessment Center [facility] documented in this encounter Plan of Treatment Not on filedocumented as of this encounter Visit Diagnoses Diagnosis Pre-op examination - Primary Preoperative examination, unspecified documented in this encounter Care Teams Alternative Dispute Resolution Mediator Relationship Specialty Start Date End Date Mar Alfaro PCP - General 05/31/17 [facility] [address] [place] [address] Jeremy Gibbs MD MD Ophthalmology 12/10/14 Jose Monahan MD MD Ophthalmology 12/10/14 Lise Mcqueen MD Ophthalmology 05/31/[address] [place] [address] Jonh Garcia MD Assigned Surgical Provider 10/12/20 9 [place] [address] documented as of this encounter
--- OUTSIDE RECORDS SUMMARY | 2022-06-16 17:58 | XMS_ITS | Encounter Summary ---
:1975 Author Organization [place] Address [address] [place] [address]. [place] [address] Care Team Providers Name Role Phone Jeremy Gibbs MD Unavailable Jose Monahan MD Unavailable Lise Mcqueen MD Unavailable [phone] Mar Alfaro Primary Care Provider Jonh Garcia MD Unavailable Encounter Details Date Type Department Care Team Description 10/24/2020 Telephone [facility] Eye Mirta Fall MD Clinic - [facility] [employer] [place] [phone] Social History Tobacco Use Types Packs/Day Years [...] with No / Unsure 10/01/2020 1:25 PM CAPTAIN ROOM SERVICE someone who was confirmed or suspected to [...] on filedocumented in this encounter Care Teams Police Matron Relationship Specialty Start Date End Date Mar Alfaro PCP - General 05/31/17 [facility] [address] [place] [address] Jeremy Gibbs MD MD Ophthalmology 12/10/14 Jose Monahan MD MD Ophthalmology 12/10/14 Lise Mcqueen MD Ophthalmology 05/31/[address] [place] [address] Jonh Garcia MD Assigned Surgical Provider 10/12/20 [address] [place] [address] documented as of this encounter
--- OUTSIDE RECORDS SUMMARY | 2022-06-16 17:58 | XMS_ITS | Encounter Summary ---
:1975 Author Organization [place] Address [address] [facility] [place] [address] Care Team Providers Name Role Phone Jeremy Gibbs MD Unavailable Jose Monahan MD Unavailable Lise Mcqueen MD Unavailable [phone] Mar Alfaro Primary Care Provider Reason for Visit Reason Comments Bilateral 6th Encounter Details Date Type Department Care Team Description 10/19/2018 Office Visit [facility] Lise Mcqueen ne rve palsy of both eyes (Primary Dx); Clinic Peds Eye MD Mary Lou Diplopia; [address] [place] [address] Ocular torticollis; [facility] [place] [address] [place] Alternating esotropia; 3rd Fl [place], [place] Left homonymous hemianopsia; [place] [address] Hypertropia of right eye [phone] Social History [...] eye documented in this encounter Care Teams Police Records Clerk Relationship Specialty Start Date End Date Mar Alfaro PCP - General 05/31/17 [facility] [address] [place] [address] Jeremy Gibbs MD MD Ophthalmology 12/10/14 Jose Monahan MD MD Ophthalmology 12/10/14 Lise Mcqueen MD MD Ophthalmology 05/31/[address] [place] [address] documented as of this encounter
--- OUTSIDE RECORDS SUMMARY | 2022-06-16 17:58 | XMS_ITS | Encounter Summary ---
:1975 Author Organization [place] Address [address] [place] [address] Care Team Providers Name Role Phone Jeremy Gibbs MD Unavailable Jose Monahan MD Unavailable Lise Mcqueen MD Unavailable [phone] Mar Alfaro Primary Care Provider Jonh Garcia MD Unavailable Ta Lane OD Unavailable Reason for Visit Reason Onset Date Comments Patient Request 10/21/2020 Ptosis surgery Encounter Details Date Type Department Care Team Description 10/21/2020 Telephone [facility] Eye Jonh Garcia P atient Request (Ptosis Clinic - Dick SOLO surgery) [address] [place] [phone] Social History Tobacco Use Types [...] with No / Unsure 10/01/2020 1:25 PM TRUCK GREASER someone who was confirmed or suspected to have Coronavirus / COVID-19? documented as of this encounter Miscellaneous Notes Telephone Encounter - Deborah Coto RN - 10/21/2020 3:[address] Fall will discuss with Dr. Garcia tomorrow and call patient back. Deborah Coto RN RN 3:37 PM 10/21/20 Telephone Encounter - Maggie Martinez - 10/21/2020 1:11 PM CDT [facility] Phone Message May a detailed [...] Message routed to: [facility] EYE Travel Screening: Not Applicable documented in this encounter Plan of Treatment Not on filedocumented as of this encounter Visit Diagnoses Not on filedocumented in this encounter Care Teams Elementary Education Teacher Relationship Specialty Start Date End Date Mar Alfaro PCP - General 05/31/17 [facility] [address] [place] [address] Jeremy Gibbs MD MD Ophthalmology 12/10/14 Jose Monahan MD MD Ophthalmology 12/10/14 Lise Mcqueen MD Ophthalmology 05/31/17 [address] [facility] [address] [place] [address] [address] Jonh Garcia MD Assigned Surgical Provider 10/12/20 [address] [place], [place] [id number] Ta [address], OD Assigned Surgical Provider 01/02/[address] [place] [address] documented as of this encounter
--- OUTSIDE RECORDS SUMMARY | 2022-06-16 17:58 | XMS_ITS | Encounter Summary ---
:1975 Author Organization [place] Address [address] [place] [address]. [place] [address] Care Team Providers Name Role Phone Jeremy Gibbs MD Unavailable Jose Monahan MD Unavailable Lise Mcqueen MD Unavailable [phone] Mar Alfaro Primary Care Provider Jonh Garcia MD Unavailable Reason for Visit Reason Onset Date Comments Previsit 11/10/2020 Encounter Details Date Type Department Care Team Description 11/10/2020 PRE VISIT [facility] Maliha Casillas, VIOLET Previsit Preoperative Assessment [address] [place] [phone] Social History Tobacco Use Types Packs/Day Years [...] on filedocumented in this encounter Care Teams Ophthalmologist Retina Specialist Relationship Specialty Start Date End Date Mar Alfaro PCP - General 05/31/17 [facility] [address] [place] [address] Jeremy Gibbs MD MD Ophthalmology 12/10/14 Jose Monahan MD MD Ophthalmology 12/10/14 Lise Mcqueen MD Ophthalmology 05/31/17 [address] [facility] [address] [address] Jonh Garcia MD Assigned Surgical Provider 10/12/20 909 [place] [address] documented as of this encounter
--- OUTSIDE RECORDS SUMMARY | 2022-06-16 17:58 | XMS_ITS | Encounter Summary ---
:1975 Author Organization [place] Address [address] [place] [address] Care Team Providers Name Role Phone Jeremy Gibbs MD Unavailable Jose Monahan MD Unavailable Lise Mcqueen MD Unavailable [phone] Mar Alfaro Primary Care Provider Chay [...] RECTUS TECH HC REPAIR LID PTOSIS,FASANELLA-SERVAT [address] [facility] [address] left upper eyelid ptosis repair 5th [place] [address] Phone: Fax: Referral ID Status Reason Start Date Expiration Date Visits Requ ested Visits Authorized [id number] 1 1 Encounter Details Date Type Department Care Team Description 11/12/2020 Hospital Encounter [facility] Jovany Arceos is, left eyelid; Main OR Campbell MD Chay Ptosis, left eyelid [address] 9[address] [facility] 5th [place] [address] [phone] Social History Tobacco Use Types Packs/Day Years [...] you stopped using narcotic pain medications(such as [place], Percocet, Tylenol #3). Medications: ?? Restart all your regular home medications and eye drops today. If you take Plavix or Aspirin on aregular basis, wait for 3 days after your surgery before restarting these in order to decrease the risk of bleeding complications. ?? Avoid aspirin and aspirin-like medications (Motrin, Aleve, Ibuprofen, Debra- [place] etc) for 5 days to reduce the [...] tablets of Vicodin, or 12 tablets of [place], Percocet or Tylenol #3. If you take other juaj-mvr-lbycmyx medications containing acetaminophen, you must take the amount of acetaminophen into account and reduce the number of prescribed pain pills accordingly. Contact information and follow-up: - Please email a few photos of your eye(s) or other operative site(s) to [email or web address] theday before your follow up visit. ?? Return to the Eye Clinic for a follow-up appointment with your physician as scheduled. If no appointment has been scheduled, call [phone] for an appointment with Dr. Arce within 1 to 2 weeks from your date of surgery. ?? For severe pain, bleeding, or loss of vision, call the Eye Clinic at [phone]. ?? After hours or on weekends and holidays, call [phone] and ask to speak with the senior human resources representative circulation clerk. [facility] Home [...] Your doctor is: Dr. Chay Arce, Ophthalmology: [phone] Or dial [phone] and ask for the resident circulation clerk for: Ophthalmology For emergency care, call the: [facility]: [phone] (TTY for hearing impaired: [phone]) documented in this encounter Medications at Time [...] capsule by 0 (FISH OIL + D3) 2839-7106 mouth daily MG-UNIT CAPSIndications: NOT TAKING FLUoxetine [...] (TOPROL-XL) 50 MG 24 hr daily tablet juptzqsd-bmmtwcouj-ioxfsko Administer 1 drop 5 mL 0 hasone [...] changes Source Note - Maliha Casillas APRN WARP COILER - 11/10/2020 2:30 PM CDT Images from [...] she had an emergent laparoscopic cholecystectomy at [facility] on 11/06/2020. She entered through the ED [...] ??? Fish Oil-Cholecalciferol (FISH OIL + D3) 8369-6165 MG-UNIT CAPS Take 1 capsule by mouth [...] file Gets together: Not on file Attends methodist service: Not on file Active member of [...] Relation Age of Onset ??? Cardiovascular Father OK twice ??? Allergies Brother spring ??? Allergies [...] - Chay Batres MD on 11/12/2020 at [facility] under MAC with [...] Casillas APRN CNP Preoperative Assessment Center [facility] documented in this [...] Post-procedure documented in this encounter Care Teams Pretzel Cooker Relationship Specialty Start Date End Date Mar Alfaro PCP - General 05/31/17 [facility] [address] [place] [address] Jeremy Gibbs MD MD Ophthalmology 12/10/14 Jose Monahan MD MD Ophthalmology 12/10/14 Lise Mcqueen MD Ophthalmology 05/31/[address] [id number] Chay Arce MD Assigned Surgical Provider 10/12/[address] [place] [phone] documented as of this encounter
--- OUTSIDE RECORDS SUMMARY | 2022-06-16 17:58 | XMS_ITS | Encounter Summary ---
:1975 Author Organization [place] Address [facility]ly [facility] [place] [address] Care Team Providers Name Role Phone Jeremy Gibbs MD Unavailable Jose Monahan MD Unavailable Lise Mcqueen MD Unavailable [phone] Mar Alfaro Primary Care Provider Lise Mcqueen MD Unavailable [phone] Reason for Visit Reason Comments Droopy Left Upper Lid Encounter Details Date Type Department Care Team Description 10/01/2020 Office Visit [facility] Jonh Garcia Ptosi s, left eyelid (Primary Dx); Clinic Peds Eye Left homonymous hemianopsia [address] [place] [address] [address] [place], [place] [phone] (Work) [phone] Social History Tobacco Use Types Packs/Day Years [...] with No / Unsure 10/01/2020 1:25 PM CASH APPLICATIONS COORDINATOR someone who was confirmed or suspected to [...] drain system. Dr. Garcia's membership in the [place] Society of Ophthalmic Plastic and Reconstructive Surgery (ASOPRS) indicates he or she is not only aboard certified wallpaper consultant who knows the anatomy and structure of the eyelids and orbit, but also has had extensive training in ophthalmic plastic reconstructive and cosmetic surgery. APPLICATIONS COORDINATOR documented in this encounter Progress Notes Jonh [...] - Jonh Garcia MD 2:04 PM 10/01/2020 APPLICATIONS COORDINATOR documented in this encounter Nursing Notes Natalie Davidson CO - 10/01/2020 1:00 PM CST Chief Complaint(s) and History of Present Illness(es) Droopy Left Upper Lid Laterality: left upper lid Comments H/o TBI. 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 Notes black line in vision (field cut). Prism gls have helped double vision. Dr. Mcqueen requests evaluation for CATIE ptosis. APPLICATIONS COORDINATOR documented in this encounter Plan of Treatment Not on filedocumented as of this encounter Procedures Procedure Name Priority Date/Time Associated Diagnosis Comme nts VISUAL FIELD PTOSIS Routine 10/01/2020 2:04 PM Ptosis, l eft eyelid Results for this OU (BOTH EYES) CASH APPLICATIONS COORDINATOR Left homonymous procedure are in hemianopsia the results section. EXTERNAL PHOTOS OU Routine 10/01/2020 2:04 PM Ptosis, le ft eyelid Results for this (BOTH EYES) CASH APPLICATIONS COORDINATOR Left homonymous procedure ar e in hemianopsia the results section. OPHTHALMIC IMAGING - 10/01/2020 12:00 HIM SCAN AM CASH APPLICATIONS COORDINATOR documented in this encounter Results Hdez VF Ptosis OU (10/01/2020 2:04 PM CASH APPLICATIONS COORDINATOR) Jonh Velez MD - 10/01/2020 2:04 P M CASH APPLICATIONS COORDINATOR Performed by: Patricia . Patient cooperation: Reliable [...] Photos OU (both eyes) (10/01/2020 2:04 PM CASH APPLICATIONS COORDINATOR) Jonh Velez MD - 10/01/2020 2:04 P M CASH APPLICATIONS COORDINATOR Performed by: reji . Patient cooperation: Reliable . Right Eye Reliability of the test: Good . Left Eye Reliability of the test: Good . Notes Consistent with exam. Results documented under Exam and A&P. ?? Jonh Garcia MD OPHTHALMOLOGY OPHTHALMIC IMAGING - HIM SCAN (10/01/2020 12:00 AM CASH APPLICATIONS COORDINATOR) Specimen (Source) Anatomical Location Collection Method / Collectio n Time Received Time / Laterality Volume 10/01/2020 Narrative This result has an attachment that is no t available. Provider Scan PROCEDURES documented in this encounter Visit Diagnoses Diagnosis Ptosis, left eyelid - Primary Unspecified ptosis of eyelid Left homonymous hemianopsia Homonymous bilateral field defects in vi sual field documented in this encounter Care Teams Fiber Optic Assembly Worker Relationship Specialty Start Date End Date Mar Alfaro PCP - General 05/31/17 [facility] [address] [place] [address] Jeremy Gibbs MD MD Ophthalmology 12/10/14 Jose Moanhan MD MD Ophthalmology 12/10/14 Lise Mcqueen, Ophthalmology 05/31/[address] [facility] [address] [address] Lise Mcqueen, Assigned Surgical Provider [address] [facility] [address] [address] [address] documented as of this encounter
--- OUTSIDE RECORDS SUMMARY | 2022-06-16 17:58 | XMS_ITS | Encounter Summary ---
:1975 Author Organization [place] Address [address] [place] [address]. [place] [address] Care Team Providers Name Role Phone Jeremy Gibbs MD Unavailable Jose Monahan MD Unavailable Lise Mcqueen MD Unavailable [phone] Mar Alfaro Primary Care Provider Lise Mcqueen MD Unavailable [phone] Jonh Garcia MD Unavailable Encounter Details Date Type Department Care Team Description 08/14/2020 Medical Correspondence [facility] Scan, LAB AND IMAGING Health Info Mgmt Non-Provider OUTPATIENT ORDER Srvcs FORM OUTSIDE [address] [place] [phone] Social History Tobacco Use Types Packs/Day [...] on filedocumented in this encounter Care Teams Automatic Folder Seamer Relationship Specialty Start Date End Date Mar Alfaro PCP - General 05/31/17 [facility] [address] [place] [address] Jeremy Gibbs MD MD Ophthalmology 12/10/14 Jose Monahan MD MD Ophthalmology 12/10/14 Lise Mcqueen MD Ophthalmology 05/31/[address] [place], [place] [address] [address] [address] Lise Mcqueen, Assigned Surgical Provider 10/11/[address] [place], [place] [address] [address] [address] Jonh Garcia MD Assigned Surgical Provider 10/12/20 [address]09 [place] [address] documented as of this encounter
--- OUTSIDE RECORDS SUMMARY | 2022-06-16 17:58 | XMS_ITS | Encounter Summary ---
:1975 Author Organization [place] Address [address] [place] [address] Care Team Providers Name Role Phone Jeremy Gibbs MD Unavailable Jose Monahan MD Unavailable Lise Mcqueen MD Unavailable [phone] Mar Alfaro Primary Care Provider Encounter [...] with No / Unsure 07/22/2020 11:30 AM GRISTMILL OPERATOR someone who was confirmed or suspected to have Coronavirus / COVID-19? documented as of this encounter Plan of Treatment Not on filedocumented as of this encounter Visit Diagnoses Not on filedocumented in this encounter Care Teams Tool Liaison Relationship Specialty Start Date End Date Mar Alfaro PCP - General 05/31/17 [facility] [address] [place] [address] Jeremy Gibbs MD MD Ophthalmology 12/10/14 Jose Monahan MD MD Ophthalmology 12/10/14 Lise Mcqueen MD MD Ophthalmology 05/31/17 [address] [facility] [address] [address] documented as of this encounter
--- OUTSIDE RECORDS SUMMARY | 2022-06-16 17:58 | XMS_ITS | Encounter Summary ---
:1975 Author Organization [place] Address [address] [place] [address]. [place] [address] Care Team Providers Name Role Phone Jeremy Gibbs MD Unavailable Jose Monahan MD Unavailable Lise Mcqueen MD Unavailable [phone] Mar Alfaro Primary Care Provider Lise Mcqueen MD Unavailable [phone] Jonh Garcia MD Unavailable Reason for Visit Reason Onset Date Comments Schedule Surgery 10/03/2020 Appointment 10/03/2020 PRE-OP PHYSICAL Encounter Details Date Type Department Care Team Description 10/03/2020 Telephone [facility] Eye [facility]; Clinic - Dick SOLO Appointment (PRE-OP 909 [facility] 909 [facility] PHYSICAL) 4th Floor [place], [place] [address] Social History Tobacco Use Types Packs/Day [...] with No / Unsure 10/01/2020 1:25 PM DAG SPRAYER someone who was confirmed or suspected to [...] from her covid appointment on 11/12 at [facility] Patient reports that she has an appointment scheduled at the [facility] on [address] [facility]. Patient was given the lrs-ho-fylsh department number to fax her results [phone]. Patient was also given their direct dial to call to confirm they received her results [phone]. Telephone Encounter - Aurelia Eddy - 11/10/2020 9:03 AM CDT Received patient pre-Op physical paperwork my email today. Patients H&P was faxed to the pre-op nursing department at [phone]. Telephone Encounter - Aurelia Eddy - 11/07/2020 [...] that she will find a place in [place] to get her covid test done. Patient was also reminded that she will need to have her covid test placed on 11/08 of 11/10 in order hermann valid for her surgery procedure. Telephone Encounter - Aurelia Eddy - 10/03/2020 11:13 AM CST Spoke with patient to schedule surgery with Dr. Garcia. Surgery was scheduled on 11/12 at [facility] Patient will have H&P at [facility] Patient is aware a COVID-19 test is needed before their procedure. The test should be with-in 4 daysof their procedure. Test Details: Date 11/10 Location [facility] Patient was advised that she must get her covid test placed on 11/10 in order to be valid for her surgery procedure. Patient was encouraged to get her covid test placed at a [facility] location but patient declined due to distance [...] scheduled on 12/01 Patient is aware a coal tram driver/metal window frame maker is needed day of surgery. Surgery packet was mailed 10/02, patient has my direct contact information for any further questions. SPRAYER Telephone Encounter - Aurelia Eddy - 10/03/2020 10:30 AM CST Called patient to schedule procedure with Dr. Garcia, there was no answer. Left message with my direct line [phone]. SPRAYER documented in this encounter Plan of Treatment Not on filedocumented as of this encounter Visit Diagnoses Not on filedocumented in this encounter Care Teams Sourcing Coordinator Relationship Specialty Start Date End Date Mar Alfaro PCP - General 05/31/17 [facility] [address] [place] [address] Jeremy Gibbs MD MD Ophthalmology 5/5/15 Jose Monahan MD MD Ophthalmology 12/10/14 Lise Mcqueen MD Ophthalmology 05/31/17 [address] [facility] [address] [place] [address] Lise Mcqueen, Assigned Surgical Provider 10/11/20 [address] [facility] [address] [place] [address] Jonh Garcia MD Assigned Surgical Provider 10/12/20 909 [place] [address] documented as of this encounter
--- OUTSIDE RECORDS SUMMARY | 2022-06-16 17:58 | XMS_ITS | Encounter Summary ---
:1975 Author Organization [place] Address [address] [place] [address]. [place] [address] Care Team Providers Name Role Phone Jeremy Gibbs MD Unavailable Jose Monahan MD Unavailable Lise Mcqueen MD Unavailable [phone] Mra Alfaro Primary Care Provider Jonh Garcia MD Unavailable Encounter Details Date Type Department Care Team Description 11/12/2020 Anesthesia Event [facility] Librado Argueta MD [address] [place], [place] [address] OR Racquel Martinez MD [facility] [address] [facility] [address] [place], [place] [address] 9[address] [facility] [address] 5th [place] [address] Anesthesia Record Procedure Summary Procedure [...] Last vitals prior to Anesthesia Care Transfer: DOG OR ANIMAL SITTER VITALS 11/12/2020 1347 - 11/12/2020 1447 11/12/2020 [...] and realistic alternatives discussed. Questions answered and patient/loss prevention representative(s) expressed understanding. - Discussed with: Patient Postoperative Care Pain management: Oral pain medications. PONV prophylaxis: Ondansetron (or other 5HT-3), Dexamethasone or Solumedrol Comments: PAC Discussion and Assessment ASA Classification: 2 Case is suitable for: ASC Anesthetic techniques and relevant risks discussed: MAC with GA as backup PAC Resident/GREEN CHAIN OFF BEARER Anesthesia Assessment: Type of service:?? Video Visit [...] with Jonh Garcia MD on 11/12/2020 at [facility] Surgery [place] under MAC with local. Ms. Peres was [...] she had an emergent laparoscopic cholecystectomy at [facility] on 11/06/2020. She entered through the ED [...] APRN NCP Date: 11/10/2020 Maliha Casillas APRN CONTROL INSPECTOR documented in this encounter Miscellaneous Notes Addendum [...] (Last set prior to Anesthesia Care Transfer) DOG OR ANIMAL SITTER VITALS 11/12/2020 1347 - 11/12/2020 1420 11/12/2020 [...] Intra-op documented in this encounter Care Teams Planner Intern Relationship Specialty Start Date End Date Mar Alfaro PCP - General 05/31/17 [facility] [address] [place] [address] Jeremy Gibbs MD MD Ophthalmology 12/10/14 Jose Monahan MD MD Ophthalmology 12/10/14 Lise Mcqueen MD Ophthalmology 05/31/[address] [address] Jonh Garcia MD Assigned Surgical Provider 10/12/20 9 [place], [place] [address] documented as of this encounter
--- OUTSIDE RECORDS SUMMARY | 2022-06-16 17:58 | XMS_ITS | Encounter Summary ---
:1975 Author Organization [place] Address [address] [place] [address]. [place] [address] Care Team Providers Name Role Phone Jeremy Gibbs MD Unavailable Jose Monahan MD Unavailable Lise Mcqueen MD Unavailable [phone] Mar Alfaro Primary Care Provider Reason for Visit Reason Onset Date Comments Appointment 11/26/2019 Encounter Details Date Type Department Care Team Description 11/26/2019 Telephone [facility] Durga Beltre, Appointment Eye [address] [place] [facility] 3rd [place] [address] [place] [phone] Social History Tobacco Use Types Packs/Day Years [...] on filedocumented in this encounter Care Teams Graphic Technician Relationship Specialty Start Date End Date Mar Alfaro PCP - General 05/31/17 [facility] [address] [place] [address] Jeremy Gibbs MD MD Ophthalmology 12/10/14 Jose Monahan MD MD Ophthalmology 12/10/14 Lise Mcqueen MD MD Ophthalmology 05/31/[address] [place] [address] documented as of this encounter
--- OUTSIDE RECORDS SUMMARY | 2022-06-16 17:58 | XMS_ITS | Encounter Summary ---
:1975 Author Organization [place] Address [address] [facility] [place] [address] Care Team Providers Name Role Phone Jeremy Gibbs MD Unavailable Jose Monahan MD Unavailable Lise Mcqueen MD Unavailable [phone] Mar Alfaro Primary Care Provider Reason for Visit Auth/Cert Specialty Diagnoses / Procedures Referred By Contact Refer red To Contact Surgery Diagnoses Strabismus, Diplopia, Alternating Esotropia, Hypertropia Ur Periop Procedures RECESSION RESECTION (REPAIR STRABISMUS) BILATERAL [address] [place] [address] Phone: Fax: Referral ID Status Reason Start Date Expiration Date Visits Requ ested Visits Authorized [id number] 1 1 Encounter Details Date Type Department Care Team Description 08/10/2017 Surgery [facility] Lise Mcqueen Strabismus Repair PeriOp Services MD Mary Lou [address] [facility] [address] [place] [address] [place] [phone] [place] [address] Surgery Details Date/Time Status Location OR Service Patient Case Case Traum a Class Class Type Case? 08/10/17 10:40 Posted UR OR UR OR Ophthalmology Same Day AM 04 Surgery Panel 1 Procedure LRB Anes Op Region Wound Class Commen ts Left Strabismus Repair Left General Eye I-Clean Le ft Strabismus Repair Surgeon Surgeon Role Service Panel Lise Mqcueen MD Primary Ophthalmology 1 Jeremy Michel MD Resident - Assisting 1 Special Needs N[place]ON B[place]RERO CALLPt requests Post op RX for [...] Comments Blood Pressure 119/80 08/10/2017 10:05 AM BEREAVEMENT PROGRAM COORDINATOR Pulse - - Temperature 36.6 ??C (97.9 ??F) 08/10/2017 10:05 AM BEREAVEMENT PROGRAM COORDINATOR Respiratory Rate 20 08/10/2017 10:05 AM BEREAVEMENT PROGRAM COORDINATOR Oxygen Saturation 97% 08/10/2017 10:05 AM BEREAVEMENT PROGRAM COORDINATOR Inhaled Oxygen Concentration - - Weight 85.1 kg (187 lb 9.8 oz) 08/10/2017 10:05 AM BEREAVEMENT PROGRAM COORDINATOR Height 157.5 cm (5' 2) 08/10/2017 10:05 AM BEREAVEMENT PROGRAM COORDINATOR Body Mass Index 34.31 08/10/2017 10:05 AM BEREAVEMENT PROGRAM COORDINATOR documented in this encounter Discharge Instructions Discharge [...] to arrange follow-up in 1-2 weeks. ?? [place]: Binh Patrick at or our front maker at ?? Nita Valladares: [phone] [place] [facility] Adult Discharge Orders & Instructions [...] clear liquids such as apple juice, emiliano rfedi, broth or 7-Up. Rest may also help. [...] resolve slowly over 2- 4 weeks. ??? [place] tinged tears ??? Swollen, painful or itchy [...] as discussed with Dr. Mcqueen. Rev. 10/2013 AVEMENT PROGRAM COORDINATOR documented in this encounter Medications at Time of Discharge Medication Sig Dispensed Refills Start Date End Date BuPROPion HCl (WELLBUTRIN Take 300 mg by mouth 0 XL PO)Indications: NOT TAKING CLONAZEPAM PO Take 0.5 mg by mouth 0 2 times daily as needed for anxiety (or sleep) Fish Oil-Cholecalciferol Take 1 capsule by 0 (FISH OIL + D3) 1674-5609 mouth daily MG-UNIT CAPSIndications: NOT TAKING FLUoxetine [...] PM CST Report to Nadiya Powell RN AVEMENT PROGRAM COORDINATOR Roseline Mcqueen RN - 08/09/2017 1:56 PM CST Called pt's cell phone (also home #) which goes straight to . Left message with surgery time change and new arrival and NPO times. AVEMENT PROGRAM COORDINATOR documented in this encounter Miscellaneous Notes Op [...] of 4.0 mm. SURGEON: Lise Mcqueen MD SWEDISH MASSEUSE: Jeremy Michel MD ESTIMATED BLOOD LOSS: 1 [...] rectus muscle was hooked using small and Oakes hooks. The [place] was carefully di ssected [...] MD MT: tamiko Name: KEY PERES Account: [id number] : 1975 Procedure Date: 08/10/2017 Document: [id number] AVEMENT PROGRAM COORDINATOR Brief Op Note - Jeremy Michel MD - 08/10/2017 1:40 PM CST [facility] Brief Operative Note Pre-operative diagnosis: Strabismus, Diplopia, Alternating Esotropia, Hypertropia Post-operative diagnosis Same Procedure: Procedure(s): Left Strabismus Repair - Wound Class: I-Clean Surgeon: Dr. Lise Mcqueen Assistants(s): Dr. Jeremy Michel Estimated blood loss: Minimal Specimens: None Findings: As expected Jeremy Michel MD Ophthalmology, PGY-3 AVEMENT PROGRAM COORDINATOR documented in this encounter Plan of Treatment Not on filedocumented as of this encounter Procedures Procedure Name Priority Date/Time Associated Diagnosis Comme nts SIMPLE RECESSION OR 08/10/2017 11:27 AM Strabismus, Di plopia, RESECTION, MUSCLE, BEREAVEMENT PROGRAM COORDINATOR Alternating Esotropia, EXTRAOCULAR, BILATERAL, Hypertropia FOR STRABISMUS CORRECTION Special Needs NORTON BORERRO CALLPt request s Post op RX for nausea from Dr. Mcqueen HCG QUALITATIVE URINE STAT 08/10/2017 10:25 AM BEREAVEMENT PROGRAM COORDINATOR Results for this procedure are in the resu lts section. GLUCOSE BY METER Routine 08/10/2017 10:12 AM BEREAVEMENT PROGRAM COORDINATOR Results for this procedure are in the resu lts section. documented in this encounter Results HCG qualitative urine (08/10/2017 10:25 AM BEREAVEMENT PROGRAM COORDINATOR) Analysis Performed At Patho logist Time Signature HCG Qual Urine Negative NEG^Negati 08/10/2017 [facility] 10:50 AM BEREAVEMENT PROGRAM COORDINATOR [facility] Comment: This test is for screening purposes. ??R esults should be interpreted along with the clinical picture. ??Confirmation te sting is available if warranted by ordering [id number], HCG Quantitative Pregna ncy. Specimen Anatomical Collection Method Collection Time Receive d Time (Source) Location / / Volume Laterality Urine specimen URINE SPECIMEN 08/10/2017 10:25 018 (specimen) OBTAINED BY CLEAN AM BEREAVEMENT PROGRAM COORDINATOR 10:[address] CATCH PROCEDURE / Unknown Dontae Lazo MD LAB - URINE ORDERABLES Performing Organization Address City/State/ZIP Code Phon e Number [facility] [address] [place], [place] [id number] [place] [address] (ABNORMAL) Glucose by meter (08/10/2017 10:12 AM BEREAVEMENT PROGRAM COORDINATOR) P athologist Signature Glucose 106 (H) 70 - 99 08/10/2017 POINT OF CARE mg/dL 10:15 AM BEREAVEMENT PROGRAM COORDINATOR TEST, GLUCOSE Specimen Anatomical Collection Method Collection Time Receive d Time (Source) Location / / Volume Laterality 08/10/2017 10:12 08/10/2017 AM BEREAVEMENT PROGRAM COORDINATOR 10:15 AM BEREAVEMENT PROGRAM COORDINATOR Lise Mcqueen MD LAB - BEAKER POCT [...] acetaminophen (TYLENOL) tablet Given 08/10/2017 10:51 AM BEREAVEMENT PROGRAM COORDINATOR 1,0 00 mg 1,000 mg 1,000 mg, Oral, ONCE, On Tue08/10/17 at 1015, For 1 dose, Maximum acetaminophen dose from all sources = 75 mg/kg/day not to exceed 4 gram, Pre-procedure BSS ophthalmic solution Given 08/10/2017 12:13 PM 1 applicator Operativ e PRN, Starting on Tue BEREAVEMENT PROGRAM COORDINATOR Site /Surgical Site 08/10/17 at 1213, Intra-procedure dexamethasone (DECADRON) injection 6 mg 6 mg, Intravenous, EVERY 10 MIN PRN, favio sea, Administer over 1 Minutes, Starting on Tue08/10/17 at 1342, For 1 dose, For ordered doses up t o 20 mg, give IV Push undiluted over 1 minute., PACU/Phase II HYDROmorphone (PF) (DILAUDID) injection 0.2 Given 08/10/2017 4:20 PM BEREAVEMENT PROGRAM COORDINATOR 0.2 mg mg 0.2 mg, Intravenous, EVERY [...] administer as Given 08/10/2017 3 :26 PM BEREAVEMENT PROGRAM COORDINATOR 1 tablet ordered by surgeon for take home use CONTINUOUS PRN, Starting on Tue08/10/17 at 1407, Until Tue08/10/17 at 1934, May administer oral pain medications as ordered by surgeon for take home use. Discontinue IV pain medication prior to administration of oral pain medication., PACU/Phase II oxymetazoline (AFRIN) 0.05 Given 08/10/2017 12:13 PM 1 spray Operative Site/Surgical % spray BEREAVEMENT PROGRAM COORDINATOR Site PRN, Starting on Tue08/10/17 at 1213, Intra-procedure scopolamine (TRANSDERM) 72 Given 08/10/2017 10:52 AM BEREAVEMENT PROGRAM COORDINATOR 1 patch Behind Right Ear hr patch 1 patch 1 patch, Transdermal, ONCE, On Tue08/10/17 at 1015, For 1 dose, Each 1.5 mg patch delivers 1 mg of scopolamine., Pre-procedure documented in this encounter Active and Recently Administered Medications Times are shown in BEREAVEMENT PROGRAM COORDINATOR. Scheduled Medication Order 08/08/2017 08/09/2017 08/10/2017 acetaminophen [...] II documented in this encounter Care Teams Barrel Bridge Assembler Relationship Specialty Start Date End Date Mar Alfaro PCP - General 05/31/17 [facility] [address] [place] [address] Jeremy Gibbs MD MD Ophthalmology 12/10/14 Jose Monahan MD MD Ophthalmology 12/10/14 Lise Mcqueen MD MD Ophthalmology 05/31/[address] [facility] [address] [place] [address] [id number] documented as of this encounter
--- OUTSIDE RECORDS SUMMARY | 2022-06-16 17:58 | XMS_ITS | Encounter Summary ---
:1975 Author Organization [place] Address [address] [place] [address] Care Team Providers Name Role Phone Jeremy Gibbs MD Unavailable Jose Monahan MD Unavailable Lise Mcqueen MD Unavailable [phone] Mar Alfaro Primary Care Provider Jonh Garcia MD Unavailable Encounter Details Date Type Department Care Team Description 10/28/2020 Orders Only [facility] Jonh Garcia E ncounter for Clinic - Dick SOLO screening for other [address] viral diseases 4th Floor [place], [place] [address] Social History Tobacco Use Types Packs/Day [...] with No / Unsure 10/01/2020 1:25 PM LINE CLEANER someone who was confirmed or suspected to have Coronavirus / COVID-19? documented as of this encounter Plan of Treatment Not on filedocumented as of this encounter Visit Diagnoses Diagnosis Encounter for screening for other viral diseases documented in this encounter Care Teams Hand Former Relationship Specialty Start Date End Date Mar Alfaro PCP - General 05/31/[address] [place] [address] Jeremy Gibbs MD MD Ophthalmology 12/10/14 Jose Monahan MD MD Ophthalmology 12/10/14 Lise Mcqueen MD Ophthalmology 05/31/[address] [place] [address] Jonh Garcia MD Assigned Surgical Provider 10/12/20 [address] [place] [address] documented as of this encounter
--- OUTSIDE RECORDS SUMMARY | 2022-06-16 17:58 | XMS_ITS | Encounter Summary ---
:1975 Author Organization [place] Address [address] [place] [address] Care Team Providers Name Role Phone Jeremy Gibbs MD Unavailable Jose Monahan MD Unavailable Lise Mcqueen MD Unavailable [phone] Mar Alfaro Primary Care Provider Jonh Garcia MD Unavailable Ta Lane OD Unavailable Encounter Details Date Type Department Care Team Description 11/05/2020 External Order [facility] Outside, Provider Results Transplant Clinic [address] [place] [address] Social History Tobacco Use Types [...] Edith Benitez on 11/14/2020. Testing performed by [facility] [address] [facility] [address] Patient Reported LABORATORY Performing Organization Address City/State/ZIP Code Phon e Number [facility] PFT COVID-19 EXTERNAL COVID-19 [place] [address], [facility] RESULTS Result Scanned into Patient Record by [employer] Refer to Result Comment/Narrative for exact performing laboratory documented in this encounter Visit Diagnoses Not on filedocumented in this encounter Care Teams Design Maintenance Engineer Relationship Specialty Start Date End Date Mar Alfaro PCP - General 05/31/17 [facility] [address] [place] [address] Jeremy Gibbs MD MD Ophthalmology 12/10/14 Jose Monahan MD MD Ophthalmology 12/10/14 Lise Mcqueen MD Ophthalmology 05/31/[address] [place] [address] [id number] Jonh Garcia MD Assigned Surgical Provider 10/12/[address] [place] [phone] OD Assigned Surgical Provider 01/02/[address] [place] [address] [phone] documented as of this encounter
--- OUTSIDE RECORDS SUMMARY | 2022-06-16 17:58 | XMS_ITS | Encounter Summary ---
:1975 Author Organization [place] Address [address] [place] [address] Care Team Providers Name Role Phone Jeremy Gibbs MD Unavailable Jose Monahan MD Unavailable Lise Mcqueen MD Unavailable [phone] Mar Alfaro Primary Care Provider Jonh [...] on filedocumented in this encounter Care Teams Insurance Adviser Relationship Specialty Start Date End Date Mar Alfaro PCP - General 05/31/17 [facility] [address] [place] [address] Jeremy Gibbs MD MD Ophthalmology 12/10/14 Jose Monahan MD MD Ophthalmology 12/10/14 Lise Mcqueen MD Ophthalmology 05/31/[address] [place] [address] Jonh Garcia MD Assigned Surgical Provider 10/12/20 [address] [place] [address] documented as of this encounter
--- OUTSIDE RECORDS SUMMARY | 2022-06-16 17:58 | XMS_ITS | Encounter Summary ---
:1975 Author Organization [place] Address [address] [place] [address]. [place] [address] Care Team Providers Name Role Phone Jeremy Gibbs MD Unavailable Jose Monahan MD Unavailable Lise Mcqueen MD Unavailable [phone] Mar Alfaro Primary Care Provider Jonh Garcia MD Unavailable Encounter Details Date Type Department Care Team Description 11/06/2020 Medical Correspondence [facility] Scan, LAB AND IMAGING Health Info Mgmt Non-Provider OUTPATIENT ORDER Srvcs FORM [address] [place] [address] [facility] [phone] Social History Tobacco Use Types Packs/Day Years [...] on filedocumented in this encounter Care Teams Director Of Clinical Services Relationship Specialty Start Date End Date Mar Alfaro PCP - General 05/31/17 [facility] [address] [place] [address] Jeremy Gibbs MD MD Ophthalmology 12/10/14 Jose Monahan MD MD Ophthalmology 12/10/14 Lise Mcqueen MD Ophthalmology 05/31/[address] [address] Jonh Garcia MD Assigned Surgical Provider 10/12/20 [address] [place] [address] documented as of this encounter
--- OUTSIDE RECORDS SUMMARY | 2022-06-16 17:58 | XMS_ITS | Encounter Summary ---
:1975 Author Organization [place] Address [address] [place] [address] Care Team Providers Name Role Phone Jeremy Gibbs MD Unavailable Jose Monahan MD Unavailable Lise Mcqueen MD Unavailable [phone] Mar Alfaro Primary Care Provider Encounter [...] on filedocumented in this encounter Care Teams Laborer Demolition Relationship Specialty Start Date End Date Mar Alfaro PCP - General 05/31/17 [facility] [address] [place] [address] Jeremy Gibbs MD MD Ophthalmology 12/10/14 Jose Monahan MD MD Ophthalmology 12/10/14 Lise Mcqueen MD MD Ophthalmology 05/31/[address] [facility] [place] [address] documented as of this encounter
--- OUTSIDE RECORDS SUMMARY | 2022-06-16 17:58 | XMS_ITS | Encounter Summary ---
:1975 Author Organization [place] Address [address] [facility] [place] [address] Care Team Providers Name Role Phone Jeremy Gibbs MD Unavailable Jose Monahan MD Unavailable Lise Mcqueen MD Unavailable [phone] Mar Alfaro Primary Care Provider Reason [...] Department Care Team Description 07/22/2020 Office Visit [facility] Lise Mcqueen Left abd ucens nerve palsy (Primary Dx); Clinic Peds Eye MD Mary Lou Diplopia; [address] [place] [address] Alternating esotropia; [facility] [place] [address] [place] Hypertropia of right eye 3[address] [place] [phone] Social History Tobacco Use Types Packs/Day Years [...] with No / Unsure 07/22/2020 11:30 AM MAINTENANCE CONTROLLER someone who was confirmed or suspected to [...] family.- Lise Mcqueen MD 08/19/2020 10:51 AM TENANCE CONTROLLER documented in this encounter Nursing Notes Geri [...] Comments Still complains of left sided hemianopsia. TENANCE CONTROLLER documented in this encounter Plan of Treatment Not on filedocumented as of this encounter Procedures Procedure Name Priority Date/Time Associated Diagnosis Comme nts SENSORIMOTOR Routine 08/19/2020 10:53 AM Left abducens nerve R esults for this MAINTENANCE CONTROLLER palsy procedure are in the Diplopia results section . documented in this encounter Results Sensorimotor (08/19/2020 10:53 AM MAINTENANCE CONTROLLER) Narrative Lise Mcqueen MD - 08/19/2020 10:53 AM MAINTENANCE CONTROLLER Performed by: Geri [place], [place] . Patient [...] eye documented in this encounter Care Teams Roofing Supervisor Relationship Specialty Start Date End Date Mar Alfaro PCP - General 05/31/17 [facility] [address] [place] [address] Jeremy Gibbs MD MD Ophthalmology 12/10/14 Jose Monahan MD MD Ophthalmology 12/10/14 Lise Mcqueen MD MD Ophthalmology 05/31/[address] [place] [phone] documented as of this encounter
--- OUTSIDE RECORDS SUMMARY | 2022-06-16 17:58 | XMS_ITS | Encounter Summary ---
:1975 Author Organization [place] Address [address] [place] [address] Care Team Providers Name Role Phone Jeremy Gibbs MD Unavailable Jose Monahan MD Unavailable Lise Mcqueen MD Unavailable [phone] Mar Alfaro Primary Care Provider Chay [...] RECTUS TECH HC REPAIR LID PTOSIS,FASANELLA-SERVAT [address] [facility] [address] left upper eyelid ptosis repair 5th [place] [address] Phone: Fax: Referral ID Status Reason Start Date Expiration Date Visits Requ ested Visits Authorized [id number] 1 1 Encounter Details Date Type Department Care Team Description 11/12/2020 Surgery [facility] Chay Arce left upper eyelid ptosis OR Pranay SOLO repair [address] [facility] [address] [facility] 5th [place], [place] [address] [phone] Surgery Details Date/Time Status Location OR Service Patient Class Case Case Trauma Class Type Case? 11/12/20 1:55 Posted [facility] [place] Ophthalmology Outpatient PM Panel 1 Procedure LRB Anes Op Region Wound Class Commen ts left upper eyelid ptosis repair Left MAC with Local Eye I-Clean Surgeon Surgeon Role Service Panel Chay Arce MD Primary Ophthalmology 1 Special Needs /10/13 lmPAC appointment with Vinny on 11/10/20Talked to aurelia kaminski: coordinator: patient trying to get covid testing done closer to [place]. Patient will reach out to Aurelia with updates on her covid screenin 11/07/20: Phoebe Salinas RN Patient will h ave her covid test done at 7 am at the [facility]. PT aware surgery will be last [...] you stopped using narcotic pain medications(such as [place], Percocet, Tylenol #3). Medications: ?? Restart all your regular home medications and eye drops today. If you take Plavix or Aspirin on aregular basis, wait for 3 days after your surgery before restarting these in order to decrease the risk of bleeding complications. ?? Avoid aspirin and aspirin-like medications (Motrin, Aleve, Ibuprofen, Debra- [place] etc) for 5 days to reduce the [...] tablets of Vicodin, or 12 tablets of Buncombe, Percocet or Tylenol #3. If you take other znep-tsk-yfejrbr medications containing acetaminophen, you must take the amount of acetaminophen into account and reduce the number of prescribed pain pills accordingly. Contact information and follow-up: - Please email a few photos of your eye(s) or other operative site(s) to [email or web address] before your follow up visit. ?? Return to the Eye Clinic for a follow-up appointment with your physician as scheduled. If no appointment has been scheduled, call [phone] for an appointment [address]. Arce within 1 to 2 weeks from your date of surgery. ?? For severe pain, bleeding, or loss of vision, call the Eye Clinic at [phone]. ?? After hours or on weekends and holidays, call [phone] and ask to speak with the heel turner non clinical advisor. [facility] Home [...] Your doctor is: Dr. Chay Arce, Ophthalmology: [phone] Or dial [phone] and ask for the resident non clinical advisor for: Ophthalmology For emergency care, call the: [place] [facility]: [phone] (TTY for hearing impaired: [phone]) documented in this encounter Medications at Time [...] capsule by 0 (FISH OIL + D3) 1914-1290 mouth daily MG-UNIT CAPSIndications: NOT TAKING FLUoxetine [...] (TOPROL-XL) 50 MG 24 hr daily tablet kogyyfdm-xwvqppksj-efwturh Administer 1 drop 5 mL 0 hasone [...] she had an emergent laparoscopic cholecystectomy at [facility] on 11/06/2020. She entered through the [...] ??? Fish Oil-Cholecalciferol (FISH OIL + D3) 6124-1224 MG-UNIT CAPS Take 1 capsule by mouth [...] file Gets together: Not on file Attends uatsdin service: Not on file Active member of [...] Relation Age of Onset ??? Cardiovascular Father [place] twice ??? Allergies Brother spring ??? Allergies [...] Chay Batres MD on 11/12/2020 at [facility] under MAC with local. [...] discussed with Dr Rogers. Maliha Casillas APRN [facility] Preoperative Assessment Center [facility] documented in this [...] Post-procedure documented in this encounter Care Teams Outreach Liaison Relationship Specialty Start Date End Date aMr Alfaro PCP - General 05/31/17 [facility] [address] [place] [address] Jeremy Gibbs MD MD Ophthalmology 12/10/14 Jose Monahan MD MD Ophthalmology 12/10/14 Lise Mcqueen MD Ophthalmology 05/31/[address] [place] [address] Chay Arce MD Assigned Surgical Provider 10/12/[address] [place] [address] documented as of this encounter
--- OUTSIDE RECORDS SUMMARY | 2022-06-16 17:58 | XMS_ITS | Encounter Summary ---
:1975 Author Organization [place] Address [address] [place] [address]. [place] [address] Care Team Providers Name Role Phone Jeremy Gibbs MD Unavailable Jose Monahan MD Unavailable Lise Mcqueen MD Unavailable [phone] Mar Alfaro Primary Care Provider Lise Mcqueen MD Unavailable Encounter Details Date Type Department Care Team Description 09/30/2020 Telephone [facility] Trace Jonh richardson MD [address] Floor [place] [phone] Social History Tobacco Use Types Packs/Day Years [...] patient and outlined visitor restrictions. Kassandra Collins EL JOURNALIST documented in this encounter Plan of Treatment Not on filedocumented as of this encounter Visit Diagnoses Not on filedocumented in this encounter Care Teams Web Applications Developer Relationship Specialty Start Date End Date Mar Alfaro PCP - General 05/31/17 [facility] [address] [place] [address] Jeremy Gibbs MD MD Ophthalmology 12/10/14 Jose Monahan MD MD Ophthalmology 12/10/14 Lise Mcqueen MD Ophthalmology 05/31/17 [address] [facility] [address] [place] [address] Lise Mcqueen, Assigned Surgical Provider [address] [facility] [address] [place] [address] documented as of this encounter
--- OUTSIDE RECORDS SUMMARY | 2022-06-16 17:58 | XMS_ITS | Encounter Summary ---
:1975 Author Organization [place] Address [address] [place] [address] Care Team Providers Name Role Phone Jeremy Gibbs MD Unavailable Jose Monahan MD Unavailable Lise Mcqueen MD Unavailable [phone] Mar Alfaro Primary Care Provider Lise Mcqueen MD Unavailable [phone] Reason for Visit Reason Onset Date Comments Glasses 10/07/2020 Rx for glasses Encounter Details Date Type Department Care Team Description 10/07/2020 Telephone [facility] Eye Jonh Garcia G lasses (Rx for Clinic - Dick SOLO glasses) [address] [place] [phone] Social History Tobacco Use Types [...] with No / Unsure 10/01/2020 1:25 PM SCARRER someone who was confirmed or suspected to [...] to fax it to [facility] in [place]. . She doesn't have the ability to print it from her MyChart. Thank you. Action Taken: Message routed to: [facility] EYE Travel Screening: Not Applicable RER documented in this encounter Plan of Treatment Not on filedocumented as of this encounter Visit Diagnoses Not on filedocumented in this encounter Care Teams Unit Trust Manager Relationship Specialty Start Date End Date Mar Alfaro PCP - General 05/31/17 [facility] [address] [place] [address] Jeremy Gibbs MD MD Ophthalmology 12/10/14 Jose Monahan MD MD Ophthalmology 12/10/14 Lise Mcqueen MD Ophthalmology 05/31/17 [address] [facility] [address] [place] [phone] Lise Mcqueen, Assigned Surgical Provider 10/11/20 [address] [facility] [address] [place] [address] [phone] documented as of this encounter
--- OUTSIDE RECORDS SUMMARY | 2022-06-16 17:58 | XMS_ITS | Encounter Summary ---
:1975 Author Organization [place] Address [address] [facility] [place] [address] Care Team Providers Name Role Phone Jeremy Gibbs MD Unavailable Jose Monahan MD Unavailable Lise Mcqueen MD Unavailable [phone] Mar Alfaro Primary Care Provider Reason [...] Department Care Team Description 08/25/2017 Office Visit [facility] Lise Mcqueen Paralyti c strabismus, sixth or abducens nerve palsy, bilateral (Primary Dx); Clinic Peds Eye MD Mary Lou Diplopia; [address] [place] [address] Left homonymous hemianopsia; [facility] 3RD [place] Alternating esotropia; 3rd Fl [place], [place] [phone] Social History Tobacco Use Types Packs/Day Years [...] family.- Lise Mcqueen MD 09/07/2017 3:45 PM ER HAND documented in this encounter Nursing Notes Geri [...] emesis. HPI Symptoms: Double vision Frequency: Constant ER HAND documented in this encounter Plan of Treatment Not on filedocumented as of this encounter Visit Diagnoses Diagnosis Paralytic strabismus, sixth or abducens nerve palsy, bilateral - Primary Diplopia Left homonymous hemianopsia Homonymous bilateral field defects in vi sual field Alternating esotropia Ocular torticollis documented in this encounter Care Teams Member Of The Legislative Council Relationship Specialty Start Date End Date Mar Alfaro PCP - General 05/31/17 [facility] [address] [place] [address] Jeremy Gibbs MD MD Ophthalmology 12/10/14 Jose Monahan MD MD Ophthalmology 12/10/14 Lise Mcqueen MD MD Ophthalmology 05/31/[address] [place] [address] documented as of this encounter
--- OUTSIDE RECORDS SUMMARY | 2022-06-16 17:58 | XMS_ITS | Encounter Summary ---
:1975 Author Organization [place] Address [address] [place] [address] Care Team Providers Name Role Phone Jeremy Gibbs MD Unavailable Jose Monahan MD Unavailable Lise Mcqueen MD Unavailable [phone] Mar Alfaro Primary Care Provider Lise [...] with No / Unsure 10/01/2020 1:25 PM ART EDUCATOR someone who was confirmed or suspected to have Coronavirus / COVID-19? documented as of this encounter Plan of Treatment Not on filedocumented as of this encounter Visit Diagnoses Not on filedocumented in this encounter Care Teams Recreation Programmer Relationship Specialty Start Date End Date Mar Alfaro PCP - General 05/31/17 [facility] [address] [place] [address] Jeremy Gibbs MD MD Ophthalmology 12/10/14 Jose Monahan MD MD Ophthalmology 12/10/14 Lise Mcqueen MD Ophthalmology 05/31/17 [facility] [address] [place] [address] Lise Mcqueen, Assigned Surgical Provider [address] [place] [address] documented as of this encounter
--- OUTSIDE RECORDS SUMMARY | 2022-06-16 17:58 | XMS_ITS | Encounter Summary ---
:1975 Author Organization [place] Address [address] [facility] [place] [address] Care Team Providers Name Role Phone Jeremy Gibbs MD Unavailable Jose Monahan MD Unavailable Lise Mcqueen MD Unavailable [phone] Mar Alfaro Primary Care Provider Reason for Visit Reason Comments Post Op (Ophthalmology) Both Eyes still has diplopia, but better than last visit with ground in prisms at distance . Difficult to read with or without glasses. Encounter Details Date Type Department Care Team Description 04/20/2018 Office Visit [facility] Lise Mcqueen rve palsy of both eyes (Primary Dx); Clinic Peds Eye MD Mary Lou Diplopia; [address] [place] [address] Left homonymous hemianopsia; [facility] 3RD [place] Alternating esotropia; 3rd Fl [place], [place] Hypertropia of right [place], [place] [phone] Social History Tobacco Use Types Packs/Day [...] eye documented in this encounter Care Teams Wire Transfer Clerk Relationship Specialty Start Date End Date Mar Alfaro PCP - General 05/31/17 [facility] [address] [place] [address] Jeremy Gibbs MD MD Ophthalmology 12/10/14 Jose Monahan MD MD Ophthalmology 12/10/14 Lise Mcqueen MD MD Ophthalmology 05/31/17 [address] [facility] [address] [address] documented as of this encounter
--- OUTSIDE RECORDS SUMMARY | 2022-06-16 17:58 | XMS_ITS | Encounter Summary ---
:1975 Author Organization [place] Address [address] [place] [address]. [place] [address] Care Team Providers Name Role Phone Jeremy Gibbs MD Unavailable Jose Monahan MD Unavailable Lise Mcqueen MD Unavailable [phone] Mar Alfaro Primary Care Provider Encounter Details Date Type Department Care Team Description 07/21/2020 Telephone [facility], Eye [address] [facility] [address] [place] [facility] 3rd [place] [address] [place] [address] [phone] Social History Tobacco Use Types Packs/Day Years [...] to patient about visitor restrictions. -Pham [place] RELIEF documented in this encounter Plan of Treatment Not on filedocumented as of this encounter Visit Diagnoses Not on filedocumented in this encounter Care Teams Pie Crimping Machine Operator Relationship Specialty Start Date End Date Mar Alfaro PCP - General 05/31/17 [facility] [address] [place] [address] Jeremy Gibbs MD MD Ophthalmology 12/10/14 Jose Monahan MD MD Ophthalmology 12/10/14 Lise Mcqueen MD MD Ophthalmology 05/31/17 [address] [facility] [address] [place] [address] documented as of this encounter
--- OUTSIDE RECORDS SUMMARY | 2022-06-16 17:58 | XMS_ITS | Encounter Summary ---
:1975 Author Organization [place] Address [address] [place] [address] Care Team Providers Name Role Phone Jeremy Gibbs MD Unavailable Jose Monahan MD Unavailable Lise Mcqueen MD Unavailable [phone] Mar Alfaro Primary Care Provider Encounter [...] on filedocumented in this encounter Care Teams Social Services Assistant Relationship Specialty Start Date End Date Mar Alfaro PCP - General 05/31/17 [facility] [address] [place] [address] Jeremy Gibbs MD MD Ophthalmology 12/10/14 Jose Monahan MD MD Ophthalmology 12/10/14 Lise Mcqueen MD MD Ophthalmology 05/31/17 [address] [facility] [address] [place] [address] documented as of this encounter
--- OUTSIDE RECORDS SUMMARY | 2022-06-16 17:59 | XMS_ITS | Encounter Summary ---
:1975 Author Organization [place] Address [address] [place] [address] Care Team Providers Name Role Phone Teresa Vaughan Primary Care Provider Montana Meyer MD Unavailable Jeremy Gibbs MD Unavailable Jose Monahan MD Unavailable Reason for Referral Occupational Therapy - Closed Specialty Diagnoses / Procedures Referred By Contact Refer red To Contact Diagnoses Left homonymous hemianopsia Diplopia Colton Pastrana MD [facility] [address] [facility] [address] [place] [address] Referral ID Status Reason Start Date Expiration Date Visits Requ ested Visits Authorized [id number] Closed 10/07/2015 10/06/2016 1 1 ATIONS DISPATCHER Reason for Visit Reason Comments Sixth Nerve [...] Department Care Team Description 09/23/2015 Office Visit [facility] Lise Mcqueen Alternat ing esotropia (Primary Dx); Clinic Peds Eye MD Mary Lou Sixth nerve palsy of both eyes; [address] [place] [address] Left homonymous hemianopsia; [place] [address]RD [place] Diplopia 3rd [place] [phone] Social History Tobacco Use Types Packs/Day Years [...] to the patient at checkout. Data Unavailable ATIONS DISPATCHER documented in this encounter Nursing Notes Kerry [...] Do you have eye pain now?: No ATIONS DISPATCHER documented in this encounter Miscellaneous Notes Addendum Note - Colton Pastrana MD - 10/07/2015 1:30 PM OPERATIONS DISPATCHER Addended by: COLTON PASTRANA on: 10/07/2015 01:30 PM Modules accepted: Orders ATIONS DISPATCHER documented in this encounter Plan of Treatment [...] Diplopia documented in this encounter Care Teams Science Job Titles Relationship Specialty Start Date End Date Teresa Vaughan PCP - General Family Practice 05/29/13 05/30/17 [facility] [address] [place] [address] Montana Meyer MD MD Ophthalmology 12/10/14 05/30/17 [facility] [address] [place] [address] Jeremy Gibbs MD MD Ophthalmology 12/10/14 Jose Monahan MD MD Ophthalmology 12/10/14 documented as of this encounter
--- OUTSIDE RECORDS SUMMARY | 2022-06-16 17:59 | XMS_ITS | Encounter Summary ---
:1975 Author Organization [place] Address [facility] [place] [address] Care Team Providers Name Role Phone Sahra Vaughanmichael Arita Primary Care Provider Montana Meyer MD Unavailable Jeremy Gibbs MD Unavailable Jose Monahan MD Unavailable Reason for Visit Reason Onset Date Comments Glasses Problem 05/05/2017 Encounter Details Date Type Department Care Team Description 05/05/2017 Telephone [facility] Moiz Mcqueen ll Glasses Problem - MD Cezar Gomesteen [address] [place] [address] [place], [place] 9th Ar Clin 9A [address] [place] [address] [phone] Social History Tobacco Use Types Packs/Day Years [...] ----- Regarding: Glasses Script Contact: Codi from [employer] is requesting a call back to verify pt's glasses script from Dr. Mcqueen. Thank you! KI Please DO NOT send this message and/or reply back to sender. Call Center Representatives DO NOT respond to messages. documented in this encounter Plan of Treatment Not on filedocumented as of this encounter Visit Diagnoses Not on filedocumented in this encounter Care Teams Turf And Grounds Supervisor Relationship Specialty Start Date End Date Teresa Vaughan PCP - General Family Practice 05/29/13 05/30/17 [facility] [address] [place] [address] Montana Meyer MD MD Ophthalmology 12/10/14 05/30/17 [facility] [address] [place] [address] Jeremy Gibbs MD MD Ophthalmology 12/10/14 Jose Monahan MD MD Ophthalmology 12/10/14 documented as of this encounter
--- OUTSIDE RECORDS SUMMARY | 2022-06-16 17:59 | XMS_ITS | Encounter Summary ---
:1975 Author Organization [place] Address [facility] [place] [address] Care Team Providers Name Role Phone Teresa Vaughan Lyla Primary Care Provider Montana Meyer MD Unavailable Jeremy Gibbs MD Unavailable Jose Monahan MD Unavailable Encounter Details Date Type Department Care Team Description 01/11/2016 Telephone [facility] [employer] Pippa Kimbrough RN [address] [place] [phone] Social History Tobacco Use Types Packs/Day [...] informed that she will need to call [facility] in the morning to cancel since their [...] on filedocumented in this encounter Care Teams B2B Account Executive Relationship Specialty Start Date End Date Teresa Vaughan PCP - General Family Practice 05/29/13 05/30/17 [facility] [address] [place] [address] Montana Meyer MD MD Ophthalmology 12/10/14 05/30/17 [facility] [address] [place] [address] Jeremy Gibbs MD MD Ophthalmology 12/10/14 Jose Monahan MD MD Ophthalmology 12/10/14 documented as of this encounter
--- OUTSIDE RECORDS SUMMARY | 2022-06-16 17:59 | XMS_ITS | Encounter Summary ---
:1975 Author Organization [place] Address [address] [place] [address]. [place] [address] Care Team Providers Name Role Phone Jeremy Gibbs MD Unavailable Jose Monahan MD Unavailable Lise Mcqueen MD Unavailable [phone] Mar Alfaro Primary Care Provider Reason for Visit Auth/Cert Specialty Diagnoses / Procedures Referred By Contact Refer red To Contact Surgery Diagnoses Strabismus, Diplopia, Alternating Esotropia, Hypertropia Ur Periop Procedures RECESSION RESECTION (REPAIR STRABISMUS) BILATERAL [address] [place] [address] Phone: Fax: Referral ID Status Reason Start Date Expiration Date Visits Requ ested Visits Authorized [id number] 1 1 Encounter Details Date Type Department Care Team Description 08/10/2017 Hospital Encounter UR PACU [place], Postoperative eye [address] [place] [facility] (Primary Dx) [place], [place] [address] [address] [address] [facility] [phone] [place], [place] [address] Social History Tobacco Use Types Packs/Day Years [...] Comments Blood Pressure 109/65 08/10/2017 5:00 PM SCIENTIFIC PUBLICATIONS EDITOR Pulse - - Temperature 36.8 ??C (98.2 ??F) 08/10/2017 5:00 PM SCIENTIFIC PUBLICATIONS EDITOR Respiratory Rate 16 08/10/2017 4:00 PM SCIENTIFIC PUBLICATIONS EDITOR Oxygen Saturation 96% 08/10/2017 5:21 PM SCIENTIFIC PUBLICATIONS EDITOR Inhaled Oxygen Concentration - - Weight 85.1 kg (187 lb 9.8 oz) 08/10/2017 10:05 AM SCIENTIFIC PUBLICATIONS EDITOR Height 157.5 cm (5' 2) 08/10/2017 10:05 AM SCIENTIFIC PUBLICATIONS EDITOR Body Mass Index 34.31 08/10/2017 10:05 AM SCIENTIFIC PUBLICATIONS EDITOR documented in this encounter Discharge Instructions Discharge [...] Pranay: Binh Patrick at or our front office help at ?? [place]: [phone] [place] [facility] Adult Discharge Orders & Instructions [...] resolve slowly over 2- 4 weeks. ??? [place] tinged tears ??? Swollen, painful or itchy [...] as discussed with Dr. Mcqueen. Rev. 10/2013 NTIFIC PUBLICATIONS EDITOR documented in this encounter Medications at Time of Discharge Medication Sig Dispensed Refills Start Date End Date BuPROPion HCl (WELLBUTRIN Take 300 mg by mouth 0 XL PO)Indications: NOT TAKING CLONAZEPAM PO Take 0.5 mg by mouth 0 2 times daily as needed for anxiety (or sleep) Fish Oil-Cholecalciferol Take 1 capsule by 0 (FISH OIL + D3) 5231-4500 mouth daily MG-UNIT CAPSIndications: NOT TAKING FLUoxetine [...] PM CST Report to Nadiya Powell RN NTIFIC PUBLICATIONS EDITOR Roseline Mcqueen RN - 08/09/2017 1:56 PM CST Called pt's cell phone (also home #) which goes straight to . Left message with surgery time change and new arrival and NPO times. NTIFIC PUBLICATIONS EDITOR documented in this encounter Miscellaneous Notes Op [...] of 4.0 mm. SURGEON: Lise Mcqueen MD SR. DIRECTOR: Jeremy Michel MD ESTIMATED BLOOD LOSS: 1 [...] muscle was carefully hooked using small and [place] hooks. This was in a temporally transposed [...] MD MT: tamiko Name: KEY PERES Account: [id number] : 1975 Procedure Date: 08/10/2017 Document: [id number] NTIFIC PUBLICATIONS EDITOR Brief Op Note - Jeremy Michel MD - 08/10/2017 1:40 PM CST [facility] Brief Operative Note Pre-operative diagnosis: Strabismus, Diplopia, Alternating Esotropia, Hypertropia Post-operative diagnosis Same Procedure: Procedure(s): Left Strabismus Repair - Wound Class: I-Clean Surgeon: Dr. Lise Mcqueen Assistants(s): Dr. Jeremy Michel Estimated blood loss: Minimal Specimens: None Findings: As expected Jeremy Michel MD Ophthalmology, PGY-3 NTIFIC PUBLICATIONS EDITOR documented in this encounter Plan of Treatment Not on filedocumented as of this encounter Procedures Procedure Name Priority Date/Time Associated Diagnosis Comme nts SIMPLE RECESSION OR 08/10/2017 11:27 AM Strabismus, Di plopia, RESECTION, MUSCLE, SCIENTIFIC PUBLICATIONS EDITOR Alternating Esotropia, EXTRAOCULAR, BILATERAL, Hypertropia FOR STRABISMUS CORRECTION Special Needs [place] [facility] CALLPt request s Post op RX for nausea from Dr. Mcqueen HCG QUALITATIVE URINE STAT 08/10/2017 10:25 AM SCIENTIFIC PUBLICATIONS EDITOR Results for this procedure are in the resu lts section. GLUCOSE BY METER Routine 08/10/2017 10:12 AM SCIENTIFIC PUBLICATIONS EDITOR Results for this procedure are in the resu lts section. documented in this encounter Results HCG qualitative urine (08/10/2017 10:25 AM SCIENTIFIC PUBLICATIONS EDITOR) Analysis Performed At Patho logist Time Signature HCG Qual Urine Negative NEG^Negati 08/10/2017 [facility] 10:50 AM SCIENTIFIC PUBLICATIONS EDITOR [facility] Comment: This test is for screening purposes. ??R esults should be interpreted along with the clinical picture. ??Confirmation te sting is available if warranted by ordering [id number], HCG Quantitative Pregna ncy. Specimen Anatomical Collection Method Collection Time Receive d Time (Source) Location / / Volume Laterality Urine specimen URINE SPECIMEN 08/10/2017 10:25 018 (specimen) OBTAINED BY CLEAN AM SCIENTIFIC PUBLICATIONS EDITOR 10:[address] CATCH PROCEDURE / Unknown Dontae Lazo MD LAB - URINE ORDERABLES Performing Organization Address City/State/ZIP Code Phon e Number [facility] [address] [place] [address] [facility] (ABNORMAL) Glucose by meter (08/10/2017 10:12 AM SCIENTIFIC PUBLICATIONS EDITOR) P athologist Signature Glucose 106 (H) 70 - 99 08/10/2017 POINT OF CARE mg/dL 10:15 AM SCIENTIFIC PUBLICATIONS EDITOR TEST, GLUCOSE Specimen Anatomical Collection Method Collection Time Receive d Time (Source) Location / / Volume Laterality 08/10/2017 10:12 08/10/2017 AM SCIENTIFIC PUBLICATIONS EDITOR 10:15 AM SCIENTIFIC PUBLICATIONS EDITOR Lise Mcqueen MD LAB - BEAKER POCT [...] acetaminophen (TYLENOL) tablet Given 08/10/2017 10:51 AM SCIENTIFIC PUBLICATIONS EDITOR 1,0 00 mg 1,000 mg 1,000 mg, Oral, ONCE, On Tue08/10/17 at 1015, For 1 dose, Maximum acetaminophen dose from all sources = 75 mg/kg/day not to exceed 4 gram, Pre-procedure BSS ophthalmic solution Given 08/10/2017 12:13 PM 1 applicator Operativ e PRN, Starting on Tue SCIENTIFIC PUBLICATIONS EDITOR Site /Surgical Site 08/10/17 at 1213, Intra-procedure dexamethasone (DECADRON) injection 6 mg 6 mg, Intravenous, EVERY 10 MIN PRN, favio sea, Administer over 1 Minutes, Starting on Tue08/10/17 at 1342, For 1 dose, For ordered doses up t o 20 mg, give IV Push undiluted over 1 minute., PACU/Phase II HYDROmorphone (PF) (DILAUDID) injection 0.2 Given 08/10/2017 4:20 PM SCIENTIFIC PUBLICATIONS EDITOR 0.2 mg mg 0.2 mg, Intravenous, EVERY [...] administer as Given 08/10/2017 3 :26 PM SCIENTIFIC PUBLICATIONS EDITOR 1 tablet ordered by surgeon for take home use CONTINUOUS PRN, Starting on Tue08/10/17 at 1407, Until Tue08/10/17 at 1934, May administer oral pain medications as ordered by surgeon for take home use. Discontinue IV pain medication prior to administration of oral pain medication., PACU/Phase II oxymetazoline (AFRIN) 0.05 Given 08/10/2017 12:13 PM 1 spray Operative Site/Surgical % spray SCIENTIFIC PUBLICATIONS EDITOR Site PRN, Starting on Tue08/10/17 at 1213, Intra-procedure scopolamine (TRANSDERM) 72 Given 08/10/2017 10:52 AM SCIENTIFIC PUBLICATIONS EDITOR 1 patch Behind Right Ear hr patch 1 patch 1 patch, Transdermal, ONCE, On Tue08/10/17 at 1015, For 1 dose, Each 1.5 mg patch delivers 1 mg of scopolamine., Pre-procedure documented in this encounter Active and Recently Administered Medications Times are shown in SCIENTIFIC PUBLICATIONS EDITOR. Scheduled Medication Order 08/08/2017 08/09/2017 08/10/2017 acetaminophen [...] II documented in this encounter Care Teams Scientific Director Relationship Specialty Start Date End Date Mar Alfaro PCP - General 05/31/17 [facility] [address] [place] [address] Jeremy Gibbs MD MD Ophthalmology 12/10/14 Jose Monahan MD MD Ophthalmology 12/10/14 Lise Mcqueen MD MD Ophthalmology 05/31/[address] [place] [address] documented as of this encounter
--- OUTSIDE RECORDS SUMMARY | 2022-06-16 17:59 | XMS_ITS | Encounter Summary ---
:1975 Author Organization [place] Address [facility] [place] [address] Care Team Providers Name Role Phone Teresa Vaughan Lyla Primary Care Provider Montana Meyer MD Unavailable Jeremy Gibbs MD Unavailable Jose Monahan MD Unavailable Reason for Visit Reason Onset Date Comments Glasses Problem 05/04/2017 Encounter Details Date Type Department Care Team Description 05/04/2017 Telephone [facility] Moiz Mcqueen Glasses [facility] - [facility] [address] [place] [address] [place], [place] [facility] [address] [address] [place] [phone] Social History Tobacco Use Types Packs/Day Years [...] distance RX faxed to [facility] in [facility]. The fax # at [facility] in [facility] is [phone]. The RX needed is for distance. NOT [...] on filedocumented in this encounter Care Teams Rate Examiner Relationship Specialty Start Date End Date Teresa Vaughan PCP - General Family Practice 05/29/13 05/30/17 [facility] [address] [place] [address] Montana Meyer MD MD Ophthalmology 12/10/14 05/30/17 [facility] [address] [place] [address] Jeremy Gibbs MD MD Ophthalmology 12/10/14 Jose Monahan MD MD Ophthalmology 12/10/14 documented as of this encounter
--- OUTSIDE RECORDS SUMMARY | 2022-06-16 17:59 | XMS_ITS | Encounter Summary ---
:1975 Author Organization [place] Address [facility] [place] [address] Care Team Providers Name Role Phone Jeremy Gibbs MD Unavailable Jose Monahan MD Unavailable Lise Mcqueen MD Unavailable [phone] Mar Alfaro Primary Care Provider Encounter Details Date Type Department Care Team Description 06/16/2017 Telephone [facility] [place] Peds Eye [address] [place] [address] [place] [address] [place], [place] [address] [place] [address] [place] [phone] Social History Tobacco Use Types Packs/Day Years [...] after that. I will try back later. D ARTILLERY CANNONEER documented in this encounter Plan of Treatment Not on filedocumented as of this encounter Visit Diagnoses Not on filedocumented in this encounter Care Teams Dough Brake Machine Operator Relationship Specialty Start Date End Date Mar Alfaro PCP - General 05/31/17 [facility] [address] [place] [address] Jeremy Gibbs MD MD Ophthalmology 12/10/14 Jose Monahan MD MD Ophthalmology 12/10/14 Lise Mcqueen MD MD Ophthalmology 05/31/17 [address] [facility] [address] [place] [address] documented as of this encounter
--- OUTSIDE RECORDS SUMMARY | 2022-06-16 17:59 | XMS_ITS | Encounter Summary ---
:1975 Author Organization [place] Address [address] [place] [address]. [place] [address] Care Team Providers Name Role Phone Teresa [...] Department Care Team Description 11/11/2014 Office Visit [facility] Eye Adult Double Montana Meyer, Alt ernating esotropia (Primary Dx); Vision MD Sixth nerve palsy of both eyes; [address] [facility] Left homonymous hemianopsia 3rd Floor, [address] [place] [address] [phone] Social History Tobacco Use Types Packs/Day Years [...] field documented in this encounter Care Teams Assistant Plant Control Operator Relationship Specialty Start Date End Date Teresa Vaughan PCP - General Family Practice 05/29/13 05/30/17 [facility] [address] [place] [address] documented as of this encounter
--- OUTSIDE RECORDS SUMMARY | 2022-06-16 17:59 | XMS_ITS | Encounter Summary ---
:1975 Author Organization [place] Address [address] [place] [address] Care Team Providers Name Role Phone Clement [...] Department Care Team Description 06/17/2016 Office Visit [facility] Jeremy Gibbs MD Accommodative component in esotropia (Pr imary Dx); Clinic Peds Eye [address] Hypertropia of right eye; [address] [place] Monocu lar esotropia; [phone] Paralytic strabismus, sixth or abducens nerve palsy, bilateral; [facility] [phone] Ocular torticollis 3rd Fl (Work) [place] [address] Social History Tobacco Use Types [...] - Jeremy Gibbs MD 11:54 AM 06/17/2016 D SUPERVISOR documented in this encounter Nursing Notes Geri [...] 2014) S/P right superior rectus recession (November,) D SUPERVISOR documented in this encounter Plan of Treatment Not on filedocumented as of this encounter Procedures Procedure Name Priority Date/Time Associated Diagnosis Comme nts SENSORIMOTOR Routine 06/17/2016 11:54 AM Hypertropia of right Results for this GUARD SUPERVISOR eye procedure are in Monocular esotro maxx the results Paralytic strabismus, sectio n. sixth or abducens nerve palsy, gonzalez ateral Ocular torticollis documented in this encounter Results Sensorimotor (06/17/2016 11:54 AM GUARD SUPERVISOR) Narrative Jeremy Gibbs MD - 06/17/2016 11:54 AM GUARD SUPERVISOR Performed by: THANH Mercado ?? . Patient [...] torticollis documented in this encounter Care Teams Signs Cleaner Relationship Specialty Start Date End Date Teresa Vaughan PCP - General Family Practice 05/29/13 05/30/17 [facility] [address] [place] [address] [place] Meyer MD MD Ophthalmology 12/10/14 05/30/17 [facility] [address] [place] [address] Jeremy Gibbs MD MD Ophthalmology 12/10/14 Jose Monahan MD MD Ophthalmology 12/10/14 documented as of this encounter
--- OUTSIDE RECORDS SUMMARY | 2022-06-16 17:59 | XMS_ITS | Encounter Summary ---
:1975 Author Organization [place] Address [address] [place] [address]. 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 Gibbs E CASE MANAGEMENT documented in this encounter Plan of Treatment Not on filedocumented as of this encounter Procedures Procedure Name Priority Date/Time Associated Diagnosis Comme nts SENSORIMOTOR Routine 07/05/2016 3:58 PM Diplopia Results f or this NURSE CASE MANAGEMENT procedure are i n the results section . documented in this encounter Results Sensorimotor (07/05/2016 3:58 PM NURSE CASE MANAGEMENT) Narrative Antione Andre MD - 016 3:58 PM NURSE CASE MANAGEMENT Performed by: giovanny marcus ?? . Patient [...] Primary documented in this encounter Care Teams Pain Medicine Physician Relationship Specialty Start Date End Date Teresa Vaughan PCP - General Family Practice 05/29/13 05/30/17 [facility] [address] [place] [address] Montana Meyer MD MD Ophthalmology 12/10/14 05/30/17 [facility] [address] [place] [address] Jeremy Gibbs MD MD Ophthalmology 12/10/14 Jose Monahan MD MD Ophthalmology 12/10/14 documented as of this encounter
--- OUTSIDE RECORDS SUMMARY | 2022-06-16 17:59 | XMS_ITS | Encounter Summary ---
:1975 Author Organization [place] Address [address] [place] [address] Care Team Providers Name Role Phone Teresa Vaughan Primary Care Provider Reason for Visit Auth/Cert - Closed Specialty Diagnoses / Procedures Referred By Contact Refer red To Contact Surgery Diagnoses Strabismus Ur Periop Procedures RECESSION RESECTION (REPAIR STRABISMUS) BILATERAL [address] [place] [address] Phone: Fax: Referral ID Status Reason Start Date Expiration Date Visits Requ ested Visits Authorized [id number] Closed 1 1 Encounter Details Date Type Department Care Team Description 08/13/2014 Hospital Encounter UR PACU [place], [place] Sixth nerve palsy of [address] Lyla Ashford MD both eyes (Primary S [facility] Dx) [place], [place] [address] [address] [place], [place] [phone] [address] Social History Tobacco Use Types Packs/Day Years [...] Comments Blood Pressure 116/82 08/13/2014 11:16 AM SUSTAINABLE PRODUCTS MARKETING MANAGER Pulse - - Temperature 36.9 ??C (98.5 ??F) 08/13/2014 11:16 AM SUSTAINABLE PRODUCTS MARKETING MANAGER Respiratory Rate 9 08/13/2014 11:16 AM SUSTAINABLE PRODUCTS MARKETING MANAGER Oxygen Saturation 95% 08/13/2014 11:16 AM SUSTAINABLE PRODUCTS MARKETING MANAGER Inhaled Oxygen Concentration - - Weight 66.8 kg (147 lb 4.3 oz) 08/13/2014 6:34 AM SUSTAINABLE PRODUCTS MARKETING MANAGER Height 157.5 cm (5' 2) 08/13/2014 6:34 AM SUSTAINABLE PRODUCTS MARKETING MANAGER Body Mass Index 26.94 08/13/2014 6:34 AM SUSTAINABLE PRODUCTS MARKETING MANAGER documented in this encounter Discharge Instructions Discharge [...] pleasecall Binh Patrick at or our front office clerk at and arrange to follow-up in 1 week. Please call [phone] For postop eye concerns including discharge, eye [...] To contact a doctor, call or: ??? [phone] and ask for the Resident Channel Worker for: (answered 24 hours a day) ??? Emergency Department: [place] [facility]: [phone] [facility] [facility]: [phone] [facility] Department: [phone] Rev. 05/2014 AINABLE PRODUCTS MARKETING MANAGER documented in this encounter Medications at Time [...] daily Multiple 0 08/04/2017 Vitamins-Minerals (MULTIVITAMIN OR) ehardphj-pemrxzavr-hefyxo Apply to both eyes 1 Tube 0 11/25/2014 thasone (MAXITROL) three times a day 3.5-36775-5.1 OINT for one week. ophthalmic ointmentIndications: Sixth [...] and answered all pt and family questions. AINABLE PRODUCTS MARKETING MANAGER Carlos Richardson RN - 08/13/2014 11:20 AM CST Pt up to chair, requested to get fully dressed. SPO2 monitor in place, all other monitors unhooked. Pt VSS, states pain is a tolerable level. Drinking and tolerating sips of water. Cold washcloth applied to BL eyes for comfort. AINABLE PRODUCTS MARKETING MANAGER Bree Andres RN - 08/13/2014 11:10 AM CST Report to Carlos Richardson RN AINABLE PRODUCTS MARKETING MANAGER Debi Doan RN - 08/13/2014 6:56 AM CST Denies chance of - not sexually active and has IUD in place. AINABLE PRODUCTS MARKETING MANAGER documented in this encounter Miscellaneous Notes Op [...] left superior rectus SURGEON: Montana Meyer MD ENGINEERING PROGRAM MANAGER: None IMPLANTS: None COMPLICATIONS: None ESTIMATED BLOOD [...] for the entire procedure. 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, sixth or abducens nerve palsy documented in this encounter Administered Medications Inactive Administered Medications - up to 3 most recent administrations Medication Order MAR Action Action Date Dose Rate Site HYDROmorphone (PF) (DILAUDID) Given 08/13/2014 10:37 AM SUSTAINABLE PRODUCTS MARKETING MANAGER 0.3 mg injection 0.3-0.5 mg 0.3-0.5 mg, Intravenous, EVERY 10 MIN PRN, moderate to severe pain, acute pain.?May administer if RR is > 10 , Starting on 08/13/14 at 0923, If fentanyl is also ordered, use HYDROmorphone if pain control insufficient with fentanyl or a longer acting agent is needed. Max cumulative dose = 2 mg, PACU/Phase II Given 08/13/2014 10:21 AM SUSTAINABLE PRODUCTS MARKETING MANAGER 0.3 mg ondansetron (ZOFRAN) injection 4 mg Given 08/13/2014 10:09 AM SUSTAINABLE PRODUCTS MARKETING MANAGER 4 mg 4 mg, Intravenous, EVERY 30 [...] Recently Administered Medications Times are shown in SUSTAINABLE PRODUCTS MARKETING MANAGER. PRN Medication Order 08/11/2014 08/12/2014 08/13/2014 balanced salts (BSS) ophthalmic solution (CANCELED) 0856 (Given - Provider: Montana Meyer MD - Comment: Used as irrigation during case) PRN, Starting 08/13/14 at 0856, Intra-procedure HYDROmorphone (PF) (DILAUDID) injection 0.3-0.5 mg (CANCELED) 1021 (Given - Provider: Bree Andres RN)1037 (Given - Provider: Bree Andres RN) 0.3-0.5 mg, Intravenous, EVERY 10 MIN IN N, Starting 08/13/14 at 0923, Until 08/13/14 [...] Intra-procedure documented in this encounter Care Teams Creative Writing English Professor Relationship Specialty Start Date End Date Teresa Vaughan PCP - General Family Practice 05/29/13 05/30/17 [place] [address] documented as of this encounter
--- OUTSIDE RECORDS SUMMARY | 2022-06-16 17:59 | XMS_ITS | Encounter Summary ---
:1975 Author Organization [place] Address [address] [place] [address]. [place] [address] Care Team Providers Name Role Phone Teresa Vaughan Lyla Primary Care Provider Reason for Visit Auth/Cert - Closed Specialty Diagnoses / Procedures Referred By Contact Refer red To Contact Surgery Diagnoses Strabismus Ur Periop Procedures RECESSION RESECTION (REPAIR STRABISMUS) BILATERAL [address] [place] [address] Phone: Fax: Referral ID Status Reason Start Date Expiration Date Visits Requ ested Visits Authorized [id number] Closed 1 1 Encounter Details Date Type Department Care Team Description 11/26/2014 Surgery [facility] [place] Myeer, Brittany trabismus Repair Right PeriOp Services MD Eye [address] [place] [address] [address] [facility] [phone] [place] [address] Surgery Details Date/Time Status Location OR Service [...] already, pleasecall Binh Patrick at or our medical front desk specialist at and arrange to follow-up. Please call [phone] For postop eye concerns including discharge, eye [...] To contact a doctor, call or: ??? [phone] and ask for the Resident Forging Engineer for: (answered 24 hours a day) ??? Emergency Department: [place] Emergency Department: [phone] [place] [facility] Department: [phone] [facility] Emergency Department: [phone] Rev. 05/2014 Dr John Meyer, Dr. Lise [...] resolve slowly over 2- 4 weeks. ??? [place] tinged tears ??? Swollen, painful or itchy [...] daily as needed for anxiety (or sleep) squtxvwa-dxgwjmgla-twybkuk Place 1 drop into 1 mL 0 12/01/2014 hasone (MAXITROL) the right eye 4 3.5-94607-7.1 times daily for 5 SUSPIndications: days Postoperative [...] recession 4.0 mm SURGEON: Montana Meyer MD MARINE FUEL DOCK ATTENDANT: Chanel Grant MD IMPLANTS: None COMPLICATIONS: None [...] Grant MD - 11/26/2014 11:43 AM CDT [facility] Brief Operative Note Pre-operative diagnosis: Strabismus [...] RN) 0.3-0.5 mg, Intravenous, EVERY 10 MIN ND N, Starting Tue11/26/14 at 1210, Until Tue11/26/14 [...] Intra-procedure documented in this encounter Care Teams Property Analyst Relationship Specialty Start Date End Date Teresa Vaughan PCP - General Family Practice 05/29/13 05/30/17 [facility] [address] [place] [address] documented as of this encounter
--- OUTSIDE RECORDS SUMMARY | 2022-06-16 17:59 | XMS_ITS | Encounter Summary ---
:1975 Author Organization [place] Address [facility] [place] [address] Care Team Providers Name Role Phone Teresa Vaughan Primary Care Provider [place] Meyer MD Unavailable Jeremy Gibbs MD Unavailable Jose Monahan MD Unavailable Lise Mcqueen MD Unavailable [phone] Mar Alfaro Primary Care Provider Reason for Visit Reason Onset Date Comments Schedule Surgery 05/23/2017 Encounter Details Date Type Department Care Team Description 05/23/2017 Telephone [facility] Lise Mcqueen [facility] Surgery Peds Eye MD Mary Lou [address] [place] [address] [phone] [place], [place] [phone] (Wo rk) Social History Tobacco Use Types [...] on filedocumented in this encounter Care Teams Cake Tester Relationship Specialty Start Date End Date Teresa Vaughan PCP - General Family Practice 05/29/13 05/30/[address] [address] Mar Alfaro PCP - General 05/31/17 [facility] [address] [place] [address] [place] Meyer MD MD Ophthalmology 12/10/14 05/30/17 [facility] [address] [place] [address] Jeremy Gibbs MD MD Ophthalmology 12/10/14 Jose Monahan MD MD Ophthalmology 12/10/14 Lise Mcqueen MD MD Ophthalmology 05/31/[address] [facility] [place] [address] documented as of this encounter
--- OUTSIDE RECORDS SUMMARY | 2022-06-16 17:59 | XMS_ITS | Encounter Summary ---
:1975 Author Organization [place] Address [address] [place] [address] Care Team Providers Name Role Phone Rochellesheridan Teresa D Primary Care Provider [place] Meyer MD Unavailable Jeremy Gibbs MD Unavailable Jose Monahan MD Unavailable Reason for Visit Reason Onset Date Comments Appointment 03/09/2016 Encounter Details Date Type Department Care Team Description 03/09/2016 Telephone [facility] Ophthalmolo Lise Mahmood, Appointment 909 [facility] 4th Floor [address] [place] [phone] [place] [address] (Wo rk) Social History Tobacco [...] on filedocumented in this encounter Care Teams Railroad Police Relationship Specialty Start Date End Date Teresa Vaughan PCP - General Family Practice 05/29/13 05/30/17 [facility] [address] [place] [address] [place] Meyer MD MD Ophthalmology 12/10/14 05/30/17 [facility] [address] [place] [address] Jeremy Gibbs MD MD Ophthalmology 12/10/14 Jose Monahan MD MD Ophthalmology 12/10/14 documented as of this encounter
--- OUTSIDE RECORDS SUMMARY | 2022-06-16 17:59 | XMS_ITS | Encounter Summary ---
:1975 Author Organization [place] Address [address] [place] [address]. [place] [address] Care Team Providers Name Role Phone Teresa Vaughan Primary Care Provider [place] Meyer MD Unavailable Jeremy Gibbs MD Unavailable Jose Monahan MD Unavailable Encounter Details Date Type Department Care Team Description 05/30/2017 Orders Only [facility] Lise Mcqueen Diplopia (Primary Dx); Clinic Peds Eye MD Mary Lou Alternating esotropia; [address] [place] [address] Hypertropia of right eye [facility] [address] [place] [address] [place] [phone] Social History Tobacco Use Types Packs/Day Years [...] eye documented in this encounter Care Teams Flow Manager Relationship Specialty Start Date End Date Teresa Vaughan PCP - General Family Practice 05/29/13 05/30/[address] [address] [place] Meyer MD MD Ophthalmology 12/10/14 05/30/17 [facility] [address] [place] [address] Jeremy Gibbs MD MD Ophthalmology 12/10/14 Jose Monahan MD MD Ophthalmology 12/10/14 documented as of this encounter
--- OUTSIDE RECORDS SUMMARY | 2022-06-16 17:59 | XMS_ITS | Encounter Summary ---
:1975 Author Organization [place] Address [address] [place] [address]. [place] [address] Care Team Providers Name Role Phone Teresa Vaughan Primary Care Provider Reason for Visit Auth/Cert - Closed Specialty Diagnoses / Procedures Referred By Contact Refer red To Contact Surgery Diagnoses Strabismus Ur Periop Procedures RECESSION RESECTION (REPAIR STRABISMUS) BILATERAL [address] [place] [phone] Phone: Fax: Referral ID Status Reason Start Date Expiration Date Visits Requ ested Visits Authorized [id number] Closed 1 1 Encounter Details Date Type Department Care Team Description 08/13/2014 Anesthesia Event M [facility] Jose Flynn MD [address] [facility] [address] [place] [address] PeriOp Services Carlos Ryan APRN [place] [address] [place], [place] [phone] [address] [place] [address] Anesthesia Record Procedure Summary Procedure Name [...] 08/13/14 1205 by Left; Hand; Alcohol; Hien Locke Smith, Ca sey, RN Injectable; Tolerated SENIOR FINANCIAL ANALYST BEND UP well Incision/Surgical Site 08/13/14; 0905; 08/13/14 0905 by 08/10/17 1210 by Bilateral; Eye; Maggie Martínez Jennif er Bilateral Eyes; LIZZ Long APRN BEND UP 08/10/17; 1210 documented in this encounter Social [...] and breathing well Jose Flynn M.D. Pager [phone] INS STRINGER Anesthesia Preprocedure Evaluation - Jose Flynn MD [...] benefits and alternatives discussed with: patient or automobile rental representative. . History & Physical Review History [...] Relation Age of Onset ??? Cardiovascular Father NE twice ??? Allergies Brother spring ??? Allergies [...] available, possible administration discussed with patient Jose lFynn MD 08/13/2014 7:38 AM I have examined the patient and reviewed the record with the above resident or ASSISTANT PLANT CONTROLLER and agree with above assessment and recommendations. JOSE FLYNN M.D. Staff Anesthesiologist August 13, 2014, 7:41 AM . INS STRINGER documented in this encounter Miscellaneous Notes Anesthesia Care Transfer Note - Carlos Hendricks APRN [place] - 08/13/2014 9:52 AM CST Anesthesia Care Transfer Note Patient: Key Peres Transferred to: PACU Patient vital signs: stable Airway: none INS STRINGER documented in this encounter Plan of Treatment Not on filedocumented as of this encounter Visit Diagnoses Not on filedocumented in this encounter Administered Medications Inactive Administered Medications - up to 3 most recent administrations Medication Order MAR Action Action Date Dose Rate Site dexamethasone (DECADRON) injection Given 08/13/2014 8:33 AM SEQUINS STRINGER 8 mg Intravenous, PRN, Administer over 1-4 Minutes, Starting on Tue08/13/14 at 0833, Anesthesia Intra-op fentaNYL (SUBLIMAZE) injection Given 08/13/2014 9:45 AM SEQUINS STRINGER 50 mcg PRN, moderate to severe pain, Starting on Tue08/13/14 at 0825, Anesthesia Intra-op Given 08/13/2014 8:49 AM SEQUINS STRINGER 50 mcg Given 08/13/2014 8:25 AM SEQUINS STRINGER 50 mcg glycopyrrolate (ROBINUL) injection Given 08/13/2014 9:26 AM SEQUINS STRINGER 0.7 mg Intravenous, PRN, Starting on Tue08/13/14 at 0825, Anesthesia Intra-op Given 08/13/2014 8:25 AM SEQUINS STRINGER 0.2 mg lactated ringers infusion New Bag 08/13/2014 8:58 AM SEQUINS STRINGER Intravenous, CONTINUOUS PRN, Anesthesia Intra-op, Starting on Tue08/13/14 at 0816, Until Tue08/13/14 at 0951 New Bag 08/13/2014 8:16 AM SEQUINS STRINGER lidocaine 1 % injection Given 08/13/2014 8:00 AM SEQUINS STRINGER 0.2 mLs PRN, Starting on Tue08/13/14 at 0800, Anesthesia Intra-op lidocaine injection 2% (MDV) Given 08/13/2014 8:25 AM SEQUINS STRINGER 100 mg Intravenous, PRN, Starting on Tue08/13/14 at 0825, Anesthesia Intra-op midazolam (VERSED) injection Given 08/13/2014 8:16 AM SEQUINS STRINGER 2 mg Intravenous, PRN, anxiety, Starting on Tue08/13/14 at 0816, Anesthesia Intra-op neostigmine (PROSTIGMINE) injection Given 08/13/2014 9:26 AM SEQUINS STRINGER 3.5 mg Intravenous, PRN, Starting on Tue08/13/14 at 0926, Anesthesia Intra-op No abx ordered pre-op Given 08/13/2014 8:25 AM SEQUINS STRINGER 1 each PRN, Starting on Tue08/13/14 at 0825, Until Tue08/13/14 at 0951, Anesthesia Intra-op ondansetron (ZOFRAN) injection Given 08/13/2014 9:21 AM SEQUINS STRINGER 4 mg Intravenous, PRN, nausea, vomiting, Administer over 2-5 Minutes, Starting on Tue08/13/14 at 0921, Anesthesia Intra-op propofol (DIPRIVAN) injection 10 mg/mL v ial Given 08/13/2014 8:25 AM SEQUINS STRINGER 200 mg Intravenous, PRN, Starting on Tue08/13/14 at 0825, Anesthesia Intra-op rocuronium (ZEMURON) injection Given 08/13/2014 8:25 AM SEQUINS STRINGER 50 mg Intravenous, PRN, Starting on Tue08/13/14 at 0825, Anesthesia Intra-op documented in this encounter Care Teams Carton Waxing Machine Operator Relationship Specialty Start Date End Date Teresa Vaughan PCP - General Family Practice 05/29/13 05/30/17 [place] [address] documented as of this encounter
--- OUTSIDE RECORDS SUMMARY | 2022-06-16 17:59 | XMS_ITS | Encounter Summary ---
:1975 Author Organization [place] Address [address] [place] [address]. [place] [address] Care Team Providers Name Role Phone Teresa Vaughan Primary Care Provider [place] Meyer MD Unavailable Jeremy Gibbs MD Unavailable Jose Monahan MD Unavailable Reason for Visit Reason Comments Diplopia Follow Up h/o TBI, patient notes const ant diplopia, patient feels nausous often has difficulty riding in a car or watching TV, wears glasses with prism multimedia developer Encounter Details Date Type Department Care Team Description 02/13/2015 Office Visit [facility] Eye Adult Double Montana Meyer, Alt ernating esotropia (Primary Dx); Vision Sixth nerve palsy of both eyes; [address] [facility] Subjective visual disturbance; 3rd Floor, [address] [place] [address] [place] [phone] Social History Tobacco Use Types Packs/Day Years [...] or watching TV, wears glasses with prism multimedia developer Review of systems for the eyes was [...] field documented in this encounter Care Teams Discharge Rn Relationship Specialty Start Date End Date Teresa Vaughan PCP - General Family Practice 05/29/13 05/30/17 [facility] [address] [place] [address] Montana Meyer MD MD Ophthalmology 12/10/14 05/30/17 [facility] [address] [place] [address] Jeremy Gibbs MD MD Ophthalmology 12/10/14 Jose Monahan MD MD Ophthalmology 12/10/14 documented as of this encounter
--- OUTSIDE RECORDS SUMMARY | 2022-06-16 17:59 | XMS_ITS | Encounter Summary ---
:1975 Author Organization [place] Address [address] [place] [address]. [place] [address] Care Team Providers Name Role Phone Jeremy Gibbs MD Unavailable Jose Monahan MD Unavailable Lise Mcqueen MD Unavailable [phone] Mar Alfaro Primary Care Provider Reason for Visit Reason Comments Esotropia Follow Up RSE. New glasses giving head aches, wearing the ones giving by Dr Meyer which improves diplop ia. Vision is stable. Auth/Cert Specialty Diagnoses / Procedures Referred By Contact Refer red To Contact Surgery Diagnoses Strabismus, Diplopia, Alternating Esotropia, Hypertropia Ur Periop Procedures RECESSION RESECTION (REPAIR STRABISMUS) BILATERAL 2450 [place] [address] Phone: Fax: Referral ID Status Reason Start Date Expiration Date Visits Requ ested Visits Authorized [id number] 1 1 Encounter Details Date Type Department Care Team Description 08/10/2017 Office Visit [facility] Lise Mcqueen MD [address] [place] [address] Paralytic strabismus, sixth or abducens nerve palsy, bilateral (Primary Dx); Clinic Peds Eye Orthoptics, Ump Eye Hypertropia of right eye; [address] [place] 3 00 Diplopia; [facility] Left ho monymous hemianopsia [address]rd [place] [address] Social History Tobacco Use Types [...] a few weeks and prescribe new glasses MARKETING AGENT documented in this encounter Nursing Notes Piedad Quintanilla CO - 08/10/2017 8:45 AM CST Chief Complaint Patient presents with ??? Esotropia Follow Up RSE. New glasses giving headaches, wearing the ones giving by Dr Meyer which improves diplopia. Vision is stable. HPI Symptoms: Do you have eye pain now?: No MARKETING AGENT documented in this encounter Plan of Treatment Not on filedocumented as of this encounter Procedures Procedure Name Priority Date/Time Associated Diagnosis Comme nts SENSORIMOTOR Routine 08/10/2017 9:33 AM Paralytic strabismus, Results for this TELEMARKETING AGENT sixth or abducens procedure are in the nerve palsy, results section . bilateral Hypertropia of right eye Diplopia documented in this encounter Results Sensorimotor (08/10/2017 9:33 AM TELEMARKETING AGENT) Narrative Piedad Quintanilla CO - 08/10/2017 9:33 AM TELEMARKETING AGENT Performed by: THANH Jacob Patient cooperation: Reliable [...] field documented in this encounter Care Teams Pipe Organ Technician Relationship Specialty Start Date End Date Mar Alfaro PCP - General 05/31/17 [facility] [address] [place] [address] Jeremy Gibbs MD MD Ophthalmology 12/10/14 Jose Monahan MD MD Ophthalmology 12/10/14 Lise Mcqueen MD MD Ophthalmology 05/31/[address] [place] [id number] documented as of this encounter
--- OUTSIDE RECORDS SUMMARY | 2022-06-16 17:59 | XMS_ITS | Encounter Summary ---
:1975 Author Organization [place] Address [address] [facility] [place] [address] Care Team Providers Name Role Phone Rochellelaurojuan [...] Department Care Team Description 05/03/2017 Office Visit [facility] Lise Mcqueen strabismus, sixth or abducens nerve palsy, bilateral (Primary Dx); Clinic Peds Eye MD Mary Lou Hypertropia of right eye; [address] [place] [address] Diplopia; [facility] [address]RD [place] Ocular torticollis; 3rd Fl [place], [place] [phone] Social History Tobacco Use Types Packs/Day Years [...] esotropia documented in this encounter Care Teams Lean Facilitator Relationship Specialty Start Date End Date Teresa Vaughan PCP - General Family Practice 05/29/13 05/30/17 [facility] [address] [place] [address] Montana Meyer MD MD Ophthalmology 12/10/14 05/30/17 [facility] [address] [place] [address] Jeremy Gibbs MD MD Ophthalmology 12/10/14 Jose Monahan MD MD Ophthalmology 12/10/14 documented as of this encounter
--- OUTSIDE RECORDS SUMMARY | 2022-06-16 17:59 | XMS_ITS | Encounter Summary ---
:1975 Author Organization [place] Address [address] [place] [address]. [place] [address] Care Team Providers Name Role Phone Teresa Vaughan Lyla Primary Care Provider Reason for Visit Auth/Cert - Closed Specialty Diagnoses / Procedures Referred By Contact Refer red To Contact Surgery Diagnoses Strabismus Ur Periop Procedures RECESSION RESECTION (REPAIR STRABISMUS) BILATERAL 2450 [place] [address] Phone: Fax: Referral ID Status Reason Start Date Expiration Date Visits Requ ested Visits Authorized [id number] Closed 1 1 Encounter Details Date Type Department Care Team Description 08/13/2014 Surgery [facility] Montana Meyer, Brittany trabismus Repair Both PeriOp Services MD Eyes [address] [place] [address] [address] [facility] [phone] [place] [address] Surgery Details Date/Time Status Location OR Service [...] Comments Blood Pressure 116/82 08/13/2014 11:16 AM PERFECT BIND MACHINE OPERATOR Pulse - - Temperature 36.9 ??C (98.5 ??F) 08/13/2014 11:16 AM PERFECT BIND MACHINE OPERATOR Respiratory Rate 9 08/13/2014 11:16 AM PERFECT BIND MACHINE OPERATOR Oxygen Saturation 95% 08/13/2014 11:16 AM PERFECT BIND MACHINE OPERATOR Inhaled Oxygen Concentration - - Weight 66.8 kg (147 lb 4.3 oz) 08/13/2014 6:34 AM PERFECT BIND MACHINE OPERATOR Height 157.5 cm (5' 2) 08/13/2014 6:34 AM PERFECT BIND MACHINE OPERATOR Body Mass Index 26.94 08/13/2014 6:34 AM PERFECT BIND MACHINE OPERATOR documented in this encounter Discharge Instructions Discharge [...] already, pleasecall Binh Patrick at or our manager front at and arrange to follow-up in 1 week. Please call [phone] For postop eye concerns including discharge, eye [...] To contact a doctor, call or: ??? [phone] and ask for the Resident Drill Press Operator Numerical Control for: (answered 24 hours a day) ??? Emergency Department: [facility]: [phone] [facility]: [phone] [facility] Department: [phone] Rev. 05/2014 ECT BIND MACHINE OPERATOR documented in this encounter Medications at Time [...] daily Multiple 0 08/04/2017 Vitamins-Minerals (MULTIVITAMIN OR) miqpzboa-[id number]-[id number] Apply to both eyes 1 Tube 0 11/25/2014 thasone (MAXITROL) three times a day 3.5-90150-3.1 OINT for one week. ophthalmic ointmentIndications: Sixth [...] and answered all pt and family questions. ECT BIND MACHINE OPERATOR Carlos Richardson RN - 08/13/2014 11:20 AM CST Pt up to chair, requested to get fully dressed. SPO2 monitor in place, all other monitors unhooked. Pt VSS, states pain is a tolerable level. Drinking and tolerating sips of water. Cold washcloth applied to BL eyes for comfort. ECT BIND MACHINE OPERATOR Bree Andres RN - 08/13/2014 11:10 AM CST Report to Carlos Richardson RN ECT BIND MACHINE OPERATOR Debi Doan RN - 08/13/2014 6:56 AM CST Denies chance of - not sexually active and has IUD in place. ECT BIND MACHINE OPERATOR documented in this encounter Miscellaneous Notes Op [...] left superior rectus SURGEON: Montana Meyer MD BAFFLE MOUNTER: None IMPLANTS: None COMPLICATIONS: None ESTIMATED BLOOD [...] for the entire procedure. Montana Meyer MD Bridge Instructor Pediatric Ophthalmology & Strabismus Department of Ophthalmology & Visual Neurosciences [facility] ECT BIND MACHINE OPERATOR documented in this encounter Plan of Treatment Not on filedocumented as of this encounter Procedures Procedure Name Priority Date/Time Associated Diagnosis Comme nts SIMPLE RECESSION OR 08/13/2014 8:16 AM PERFECT BIND MACHINE OPERATOR Strabismus RESECTION, MUSCLE, EXTRAOCULAR, BILATERAL, FOR STRABISMUS CORRECTION documented in this encounter Visit Diagnoses Not on filedocumented in this encounter Administered Medications Inactive Administered Medications - up to 3 most recent administrations Medication Order MAR Action Action Date Dose Rate Site balanced salts (BSS) Given 08/13/2014 8:56 AM 1 applicator Both Eyes ophthalmic solution PERFECT BIND MACHINE OPERATOR PRN, Starting on Tue08/13/14 at 0856, Intra-procedure HYDROmorphone (PF) (DILAUDID) injection Given 08/13/2014 10:37 A M PERFECT BIND MACHINE OPERATOR 0.3 mg 0.3-0.5 mg 0.3-0.5 mg, Intravenous, EVERY 10 MIN PRN, moderate to severe pain, acute pain.?May administer if RR is > 10 , Starting on Tue08/13/14 at 0923, If fentanyl is also ordered, use HYDROmorphone if pain control insufficient with fentanyl or a longer acting agent is needed. Max cumulative dose = 2 mg, PACU/Phase II Given 08/13/2014 10:21 AM PERFECT BIND MACHINE OPERATOR 0.3 mg lidocaine injection 2% Given 08/13/2014 9:31 AM 1 mL Operative Site/Surgical (MDV) PERFECT BIND MACHINE OPERATOR Site PRN, Starting on Tue08/13/14 at 0931, Intra-procedure ondansetron (ZOFRAN) injection 4 mg Given 08/13/2014 10:09 AM PERFECT BIND MACHINE OPERATOR 4 mg 4 mg, Intravenous, EVERY 30 [...] 0.05 % nasal Given 08/13/2014 8:39 AM PERFECT BIND MACHINE OPERATOR 3 mLs Both Eyes spray PRN, Starting on Tue08/13/14 at 0835, Intra-procedure Given 08/13/2014 8:35 AM PERFECT BIND MACHINE OPERATOR 3 mLs Both Eyes povidone-iodine 5 % ophthalmic solution Given 08/13/2014 8:58 AM PERFECT BIND MACHINE OPERATOR 2 drops PRN, Starting on Tue08/13/14 at 0858, Intra-procedure documented in this encounter Active and Recently Administered Medications Times are shown in PERFECT BIND MACHINE OPERATOR. PRN Medication Order 08/11/2014 08/12/2014 08/13/2014 balanced salts (BSS) ophthalmic solution (CANCELED) 0856 (Given - Provider: Montana Meyer MD - Comment: Used as irrigation during case) PRN, Starting Tue08/13/14 at 0856, Intra-procedure HYDROmorphone (PF) (DILAUDID) injection 0.3-0.5 mg (CANCELED) 1021 (Given - Provider: Bree Andres, LIZZ)1037 (Given - Provider: Bree Andres RN) 0.3-0.5 mg, Intravenous, EVERY 10 MIN AK N, Starting 08/13/14 at 0923, Until 08/13/14 [...] Intra-procedure documented in this encounter Care Teams Can Sorter Relationship Specialty Start Date End Date Teresa Vaughan PCP - General Family Practice 05/29/13 05/30/[address] [address] documented as of this encounter
--- OUTSIDE RECORDS SUMMARY | 2022-06-16 17:59 | XMS_ITS | Encounter Summary ---
:1975 Author Organization [place] Address [address] [place] [address]. [place] [address] Care Team Providers Name Role Phone Jeremy Gibbs MD Unavailable Jose Monahan MD Unavailable Lise Mcqueen MD Unavailable [phone] Mar Alfaro Primary Care Provider Reason for Visit Auth/Cert Specialty Diagnoses / Procedures Referred By Contact Refer red To Contact Surgery Diagnoses Strabismus, Diplopia, Alternating Esotropia, Hypertropia Ur Periop Procedures RECESSION RESECTION (REPAIR STRABISMUS) BILATERAL 2450 [place] [address] Phone: Fax: Referral ID Status Reason Start Date Expiration Date Visits Requ ested Visits Authorized [id number] 1 1 Encounter Details Date Type Department Care Team Description 08/10/2017 Anesthesia Event M [facility] Dontae Lazo MD [address] [facility] [address] [place], [place] [address] PeriOp Services Osmany Farris MD [facility] [address] [facility] [address] [place] [address] [facility]0 [place] [phone] Anesthesia Record Procedure Summary Procedure Name Responsible [...] mask airway; VIOLET Long CRNA, Krystian PRN PILOT BOAT CAPTAIN center of mouth, midline; Equal, clear and bilateral; PILOT BOAT CAPTAIN; Tlcic PILOT BOAT CAPTAIN Retired Non-Surgical 08/10/17; 1158; Easy; 08/10/17 1158 by 10/23 1348 by Airway 3.5; laryngeal mask Andrade, Olivia Lopez airway (AirQ); VIOLET Salcedo CRNA, AP RN PILOT BOAT CAPTAIN of mouth; Equal, clear and bilateral; PILOT BOAT CAPTAIN; Ismac PILOT BOAT CAPTAIN documented in this encounter Social History Tobacco [...] SpO2: 99% 100% 96% Electronically Signed By: Liezth Lopez MD August 10, 2017 2:51 PM ECALLS NURSE Anesthesia Preprocedure Evaluation - Dontae Lazo MD [...] ??? Fish Oil-Cholecalciferol (FISH OIL + D3) 4474-4909 MG-UNIT CAPS Take 1 capsule by mouth [...] blood products discussed: No . . . ECALLS NURSE documented in this encounter Miscellaneous Notes Anesthesia [...] APRN CRNA August 10, 2017 2:01 PM ECALLS NURSE documented in this encounter Plan of Treatment Not on filedocumented as of this encounter Visit Diagnoses Not on filedocumented in this encounter Administered Medications Inactive Administered Medications - up to 3 most recent administrations Medication Order MAR Action Action Date Dose Rate Site dexamethasone (DECADRON) injection Given 08/10/2017 12:55 PM HOUSECALLS NURSE 8 mg Intravenous, PRN, Administer over 1 Minutes, Starting on Tue08/10/17 at 1255, Anesthesia Intra-op fentaNYL (PF) (SUBLIMAZE) injection Given 08/10/2017 12:23 PM HOUSECALLS NURSE 50 mcg Intravenous, PRN, moderate to severe pain, Administer over 3-5 Minutes, Starting on Tue08/10/17 at 1131, Anesthesia Intra-op Given 08/10/2017 12:19 PM HOUSECALLS NURSE 25 mcg Given 08/10/2017 11:31 AM HOUSECALLS NURSE 25 mcg lactated ringers infusion New Bag 08/10/2017 11:27 AM HOUSECALLS NURSE Intravenous, CONTINUOUS PRN, Anesthesia Intra-op, Starting on Tue08/10/17 at 1127, Until Tue08/10/17 at 1400 midazolam (VERSED) injection Given 08/10/2017 11:27 AM HOUSECALLS NURSE 2 mg Intravenous, Administer over 2 Minutes, PRN, anxiety, Starting on Tue08/10/17 at 1127, Anesthesia Intra-op No abx ordered pre-op Given 08/10/2017 11:27 AM HOUSECALLS NURSE 1 each PRN, Starting on Tue08/10/17 at 1127, Until Tue08/10/17 at 1400, Anesthesia Intra-op ondansetron (ZOFRAN) injection Given 08/10/2017 1:33 PM HOUSECALLS NURSE 4 mg Intravenous, PRN, nausea, vomiting, Administer over 2-5 Minutes, Starting on Tue08/10/17 at 1333, Anesthesia Intra-op propofol (DIPRIVAN) infusion Rate/Dose 08/10/2017 200 mcg/kg/min 102.1 Intravenous, CONTINUOUS PRN, Change 12:53 PM HOUSECALLS NURSE mL/hr Starting on Tue08/10/17 at 1140, Anesthesia Intra-op Rate/Dose Change 08/10/2017 12:42 PM HOUSECALLS NURSE 175 mcg/kg/min 89.4 mL/hr New Bag 08/10/2017 12:17 PM HOUSECALLS NURSE propofol (DIPRIVAN) injection 10 mg/mL v ial Given 08/10/2017 11:31 AM HOUSECALLS NURSE 200 mg Intravenous, PRN, Starting on Tue08/10/17 at 1131, Anesthesia Intra-op documented in this encounter Care Teams Clinical Director Relationship Specialty Start Date End Date Mar Alfaro PCP - General 05/31/17 [facility] [address] [place] [address] Jeremy Gibbs MD MD Ophthalmology 12/10/14 Jose Monahan MD MD Ophthalmology 12/10/14 Lise Mcqueen MD MD Ophthalmology 05/31/[address] [place] [address] documented as of this encounter
--- OUTSIDE RECORDS SUMMARY | 2022-06-16 17:59 | XMS_ITS | Encounter Summary ---
:1975 Author Organization [place] Address [address] [place] [address]. [place] [address] Care Team Providers Name Role Phone Teresa [...] Department Care Team Description 12/09/2014 Office Visit [facility] Eye Adult Double Montana Meyer, Alt ernating esotropia (Primary Dx); Vision MD Sixth nerve palsy of both eyes; [address] [place] [address] Subjective visual disturbance; 3rd Floor, [address] [place] [address] Paralytic strabismus, sixth or abducens nerve palsy, bilateral; [place], [place] Left homony mous hemianopsia [address] [phone] Social History Tobacco Use Types Packs/Day Years [...] field documented in this encounter Care Teams Overedge Sewer Relationship Specialty Start Date End Date Teresa Vaughan PCP - General Family Practice 05/29/13 05/30/[address] [address] documented as of this encounter
--- OUTSIDE RECORDS SUMMARY | 2022-06-16 17:59 | XMS_ITS | Encounter Summary ---
:1975 Author Organization [place] Address [address] [place] [address]. [place] [address] Care Team Providers Name Role Phone Teresa [...] MD Sixth nerve palsy of both eyes; [facility] Diplopia 3rd Floor, [address] [place] [phone] Social History Tobacco Use Types Packs/Day Years [...] PM CST Consider wearing prism in glasses. LLENCE SPECIALIST documented in this encounter Progress Notes Montana [...] I am pleased to see that Ms. Perse has had a good postop result. Her [...] with this note. 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 [address] [place] [address] documented as of this encounter
--- OUTSIDE RECORDS SUMMARY | 2022-06-16 17:59 | XMS_ITS | Encounter Summary ---
:1975 Author Organization [place] Address Formerly [facility] [place] [address] Care Team Providers Name Role Phone Jeremy Gibbs MD Unavailable Jose Monahan MD Unavailable Lise Mcqueen MD Unavailable [phone] Mar Alfaro Primary Care Provider Encounter Details Date Type Department Care Team Description 06/17/2017 Documentation Only [facility] Geri Rodriguez, Clinic Peds Eye [place] [address] [place] [address] [place] [facility] [address] [place] [address] [phone] Social History Tobacco Use Types Packs/Day Years Used Date Smoking Tobacco: Every Day Cigarettes 0.3 2 Smokeless Tobacco: Never Alcohol Use Standard Drinks/Week Comments Yes 0 (1 standard drink = 0.6 oz pure alcoho l) occasional Sex Assigned at Date Recorded Not on file documented as of this encounter Progress Notes Geri Rodriguez Co - 06/17/2017 8:36 AM CST [...] don't want her to have daily headaches. TY ATTENDANT documented in this encounter Plan of Treatment Not on filedocumented as of this encounter Visit Diagnoses Not on filedocumented in this encounter Care Teams Time Lock Expert Relationship Specialty Start Date End Date Mar Alfaro PCP - General 05/31/17 [facility] [address] [place] [address] Jeremy Gibbs MD MD Ophthalmology 12/10/14 Jose Monahan MD MD Ophthalmology 12/10/14 Lise Mcqueen MD MD Ophthalmology 05/31/[address] [place] [phone] documented as of this encounter
--- OUTSIDE RECORDS SUMMARY | 2022-06-16 17:59 | XMS_ITS | Encounter Summary ---
:1975 Author Organization [place] Address [address] [place] [address] Care Team Providers Name Role Phone Teresa Vaughan Lyla Primary Care Provider Reason for Visit Auth/Cert - Closed Specialty Diagnoses / Procedures Referred By Contact Refer red To Contact Surgery Diagnoses Strabismus Ur Periop Procedures RECESSION RESECTION (REPAIR STRABISMUS) BILATERAL 2450 [place] [address] Phone: Fax: Referral ID Status Reason Start Date Expiration Date Visits Requ ested Visits Authorized [id number] Closed 1 1 Encounter Details Date Type Department Care Team Description 11/26/2014 Hospital Encounter UR PACU Ricardo Meyerick Postoperative eye 2450 Christopher Arita MD [facility] (Primary Dx) [place], [place] [address] [address] [place], [place] [phone] Social History Tobacco Use Types Packs/Day Years [...] already, pleasecall Binh Patrick at or our patient coordinator front desk at and arrange to follow-up. Please call [phone] For postop eye concerns including discharge, eye [...] To contact a doctor, call or: ??? [phone] and ask for the Resident Visitor Services Specialist for: (answered 24 hours a day) ??? Emergency Department: [facility]: [phone] [facility]: [phone] [facility] Department: [phone] Rev. 05/2014 Dr John Meyer, Dr. Dr. [...] resolve slowly over 2- 4 weeks. ??? [place] tinged tears ??? Swollen, painful or itchy [...] daily as needed for anxiety (or sleep) zygahtej-mlhaqcqpp-btddyin Place 1 drop into 1 mL 0 12/01/2014 hasone (MAXITROL) the right eye 4 3.5-10542-2.1 times daily for 5 SUSPIndications: days Postoperative [...] recession 4.0 mm SURGEON: Montana Meyer MD COUNTRY SINGER: Chanel Grant MD IMPLANTS: None COMPLICATIONS: None [...] Grant MD - 11/26/2014 11:43 AM CDT [facility] Brief Operative Note Pre-operative diagnosis: [...] RN) 0.3-0.5 mg, Intravenous, EVERY 10 MIN [place] N, Starting 11/26/14 at 1210, Until 11/26/14 [...] Intra-procedure documented in this encounter Care Teams Airborne Mission Systems Relationship Specialty Start Date End Date Teresa Vaughan PCP - General Family Practice 05/29/13 05/30/17 [facility] 1400 [place] [address] documented as of this encounter
--- OUTSIDE RECORDS SUMMARY | 2022-06-16 17:59 | XMS_ITS | Encounter Summary ---
:1975 Author Organization [place] Address [address] [facility] [place] [address] Care Team Providers Name Role Phone Teresa Vaughan Primary Care Provider Reason for Visit Auth/Cert - Closed Specialty Diagnoses / Procedures Referred By Contact Refer red To Contact Surgery Diagnoses Strabismus Ur Periop Procedures RECESSION RESECTION (REPAIR STRABISMUS) BILATERAL [address] [facility] [place] [address] Phone: Fax: Referral ID Status Reason Start Date Expiration Date Visits Requ ested Visits Authorized [id number] Closed 1 1 Encounter Details Date Type Department Care Team Description 11/26/2014 Anesthesia Event [facility] Jose Garnett MD PeriOp Services [address] [facility] 2450 [facility] [address] [place] [address] [place], [place] [address] (Wo rk) Anesthesia Record Procedure Summary Procedure [...] Jose Guadalupe; Blade Size: 3; Place by: [facility]; Insertion Attempts: 1; Secured at (cm)to lip: 22 cm; Breath Sounds: Equal, clear and bilateral; End Tidal CO2: Present; Dentition: Intact; Grade View of Cords: 2 Incision/Surgical Site 11/26/14; 1111; Left; 11/26/14 1111 by 1210 by Eye; Conjunctiva of the KayleeMaggie R, Olivia Baez right eye; 08/10/17; LIZZ Long APRN CERTIFIED NURSING ASSISTANT 1210 documented in this encounter Social History [...] and breathing well Jose Garnett M.D. Pager [phone] Anesthesia Preprocedure Evaluation - Jose Garnett MD - 11/26/2014 9:51 AM CDT Anesthesia Plan ASA Score: 3 . Plan for General - with Intravenous induction.Maintenance will be Inhalation. Routine analgesia and antiemetics to be used for post-operative care. Anesthetic plan, risks, benefits and alternatives discussed with: patient or wire rope sales representative. . History & Physical Review History [...] Relation Age of Onset ??? Cardiovascular Father [place] twice ??? Allergies Brother spring ??? Allergies [...] the record with the above resident or A P MANAGER and agree with above assessment and recommendations. Jose Garentt M.D. Staff Anesthesiologist November 26, 2014, 9:53 [...] Intra-op documented in this encounter Care Teams Manufacturing Advisor Relationship Specialty Start Date End Date Teresa Vaughan PCP - General Family Practice 05/29/13 05/30/[address] [address] documented as of this encounter
--- OUTSIDE RECORDS SUMMARY | 2022-06-16 18:00 | XMS_ITS | Encounter Summary ---
:1975 Author Organization [place] Address [address] [place] [address]. [place] [address] Care Team Providers Name Role Phone Teresa [...] Department Care Team Description 04/18/2014 [facility] Adult Double Montana Meyer, Six th nerve palsy of both eyes (Primary Dx); Vision Left homonymous hemianopsia [address] [facility] 3rd Floor, [address] [place] [address] [phone] Social History Tobacco Use Types Packs/Day Years [...] field documented in this encounter Care Teams Cloth Baler Relationship Specialty Start Date End Date Teresa Vaughan PCP - General Family Practice 05/29/13 05/30/17 [facility] [address] [place] [address] documented as of this encounter
--- OUTSIDE RECORDS SUMMARY | 2022-06-16 18:00 | XMS_ITS | Encounter Summary ---
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 Encounter Details Date Type Department Care Team Description 09/20/2013 Office Visit [facility] Eye Adult Double Shani Gibbs MD Subjective visual disturbance (Primary D x); Vision [address] [facility] Diplopia [address] [place] [address] 3rd Floor, [address] [address] [place], [place] [phone] (Wo rk) [address] [phone] Social History Tobacco Use Types Packs/Day Years Used Date Smoking Tobacco: Every Day Cigarettes 0.3 2 Alcohol Use Standard Drinks/Week Comments Yes 0 (1 standard drink = 0.6 oz pure alcoho l) occasional Sex Assigned at Date Recorded Not on file documented as of this encounter Patient Instructions Patient InstructionsLeJeremy mancini MD - 09/20/2013 3:34 PM DIRECTOR OF RELIGIOUS ACTIVITIES For your double vision, to block the vision in one eye, you can place SCOTCH GIFT WRAP TAPE on one of the lenses on the inside of the lens. Future Appointments Date Time Provider Department Center 11/13/2013 12:30 PM Rebecca Thompson OT [facility] 01/17/2014 9:00 AM Jeremy Gibbs MD URPEDV [facility] CTOR OF RELIGIOUS ACTIVITIES documented in this encounter Progress Notes Jeremy [...] - Jeremy Gibbs MD 4:12 PM 09/20/2013 CTOR OF RELIGIOUS ACTIVITIES documented in this encounter Plan of Treatment Not on filedocumented as of this encounter Procedures Procedure Name Priority Date/Time Associated Diagnosis Comme nts EXTERNAL PHOTOS 9 Routine 09/20/2013 4:11 PM Subjective visual CARDINAL GAZES DIRECTOR OF RELIGIOUS ACTIVITIES disturbance Diplopia SENSORIMOTOR Routine 09/20/2013 4:11 PM Subjective visual DIRECTOR OF RELIGIOUS ACTIVITIES disturbance Diplopia HC SENSORIMOTOR EXAM Routine 09/20/2013 3:16 PM Subjective vis ual DIRECTOR OF RELIGIOUS ACTIVITIES disturbance documented in this encounter Results External Photos 9 Cardinal Gazes (09/20/2013 4:11 PM DIRECTOR OF RELIGIOUS ACTIVITIES) Jeremy Gibbs MD OPHTHALMOLOGY Sensorimotor (09/20/2013 4:11 PM DIRECTOR OF RELIGIOUS ACTIVITIES) Jeremy Gibbs MD OPHTHALMOLOGY documented in this encounter Visit Diagnoses Diagnosis Subjective visual disturbance - Primary Subjective visual disturbance, unspecifi ed Diplopia documented in this encounter Care Teams Food Trades Assistants Relationship Specialty Start Date End Date Teresa Vaughan PCP - General Family Practice 05/29/13 05/30/17 [facility] [address] [place] [address] documented as of this encounter
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
--- OUTSIDE RECORDS SUMMARY | 2022-06-16 18:00 | XMS_ITS | Encounter Summary ---
:1975 Author Organization [place] Address [address] [place] [address] Care Team Providers Name Role Phone Unavailable Primary Care Provider Unavailable Reason for Visit Reason Onset Date Comments Other 02/13/2004 Patient is dismissed from clinic as of 03-04-04. Encounter Details Date Type Department Care Team Description 02/13/2004 Telephone [facility] None, Bfp Other (Veda vallesnt is dismissed Physicians from clinic as of 03-04-04. [address] [place] [address] ) [address] [place] [address] Social History Tobacco Use Types Packs/Day Years Used Date Smoking Tobacco: Every Day Cigarettes 0.3 2 Alcohol Use Standard Drinks/Week Comments Yes 0 (1 standard drink = 0.6 oz pure alcoho l) occasional Sex Assigned at Date Recorded Not on file documented as of this encounter Miscellaneous Notes Telephone Encounter - 02/13/2004 1:02 PM CDT >> JOHN KYLE [facility] Feb 20, 2004 1:32 PM >> CALL RECEIVED. Contact: done >> UMA HANLEY [facility] Feb 13, 2004 1:03 PM No appts, referrals or Rx refills after 03-04-04. Please remove patient from health maintenance as well as cancel any standing orders in [facility]. 30 day letter was returned Unclaimed. If patient callsto make appt, we will rescind the dismissal due to the fact that the certified letter was nev er received. documented in this encounter Plan of Treatment Not on filedocumented as of this encounter Visit Diagnoses Not on filedocumented in this encounter
--- OUTSIDE RECORDS SUMMARY | 2022-06-16 18:00 | XMS_ITS | Encounter Summary ---
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 Encounter Details Date Type Department Care Team Description 01/17/2014 Office Visit [facility] Eye Adult Double Shani Gibbs MD [address] [place] [address] Vision loss (Primary Dx); Vision Rebecca Thompson, LUIS EDUARDO OSEGUERAENSTEEN BLDG [address] [place] [address] Subjective visual disturbance; [address] Diplopia; South Left homonymous hemianopsia; 3rd Floor, [address] Sixth [place] [address] Social History Tobacco Use Types [...] Results Sensorimotor (01/17/2014 2:56 PM CDT) Jeremy Gibbs MD OPHTHALMOLOGY Visual Field 24-2 OD (right [...] palsy documented in this encounter Care Teams Powder Worker Relationship Specialty Start Date End Date Teresa Vaughan PCP - General Family Practice 05/29/13 05/30/17 [facility] [address] [place] [address] documented as of this encounter
--- OUTSIDE RECORDS SUMMARY | 2022-06-16 18:00 | XMS_ITS | Encounter Summary ---
:1975 Author Organization [place] Address [address] [place] [address] Care Team Providers Name Role Phone Clement Teresa D Primary Care Provider Montana Meyer MD Unavailable Jeremy Gibbs MD Unavailable Jose Monahan MD Unavailable Lise Mcqueen MD Unavailable [phone] Mar Alfaro Primary Care Provider Lise Mcqueen MD Unavailable [phone] Jonh Garcia MD Unavailable Ta Lane OD Unavailable Encounter Details Date Type Department Care Team Description 06/05/2013 Office [facility] Jeremy Gibbs MD [address] [place] [address] (Wo rk) Social History Tobacco Use Types Packs/Day Years Used Date Smoking Tobacco: Every Day Cigarettes 0.3 2 Alcohol Use Standard Drinks/Week Comments Yes 0 (1 standard drink = 0.6 oz pure alcoho l) occasional Sex Assigned at Date Recorded Not on file documented as of this encounter Progress Notes Jeremy Gibbs MD - 06/05/2013 7:30 AM CDT Air Conditioner Installer Helper: Jeremy Gibbs Status: Final - Signature Encounter: 2013-06-05 07:30:00.000 Type: EYE Letter June 05, 2013 MD [facility] [address] [facility], [address] [place] [address] RE: [place] : 1975 DOS: 06/05/2013 [...] drive a car in the state of [place]. Shaheedwill try sector prisms to see if we can expand her visual field. She has refractive error and I gaveher a prescription for glasses. I would like to thank you again for allowing me to share in her care. Sincerely, Jeremy Gibbs M.D. Professor Neuro-ophthalmology Service MSL:cy Electronically signed by:Jeremy Gibbs M.D. Jun 06 2013 8:01AM QM CONSULTANT documented in this encounter Plan of Treatment Not on filedocumented as of this encounter Visit Diagnoses Not on filedocumented in this encounter Care Teams Piping Drafter Relationship Specialty Start Date End Date Teresa Vaughan PCP - General Family Practice 05/29/13 05/30/17 [facility] [address] [place] [address] Mar Alfaro PCP - General 05/31/17 [facility] [address] [place] [address] Montana Meyer MD MD Ophthalmology 12/10/14 05/30/17 [facility] [address] [place] [address] Jeremy Gibbs MD MD Ophthalmology 12/10/14 Jose Monahan MD MD Ophthalmology 12/10/14 Lise Mcqueen MD Ophthalmology 05/31/[address] [place] [address] Lise Mcqueen, Assigned Surgical Provider 10/11/[address] [place] [address] Jonh Garcia MD Assigned Surgical Provider 10/12/[address] [place] [address] OD Assigned Surgical Provider 01/02/[address] [place] [address] documented as of this encounter
--- OUTSIDE RECORDS SUMMARY | 2022-06-16 18:00 | XMS_ITS | Encounter Summary ---
:1975 Author Organization [place] Address [address] [place] [address] Care Team Providers Name Role Phone Teresa Vaughan Primary Care Provider Reason for Referral Occupational Therapy - Closed Specialty Diagnoses / Procedures Referred By Contact Refer red To Contact Diagnoses Vision loss Jeremy Gibbs MD [address] [place] [address] 5 Referral ID Status Reason Start Date Expiration Date Visits Requ ested Visits Authorized [id number] Closed 11/14/2013 05/13/2014 1 1 Encounter Details Date Type Department Care Team Description 11/14/2013 Orders Only Eye Clinic Jeremy Gibbs MD Vision loss (Primary Robb [address] Dx) Building [place], [place] 9th Floor, Clinic [address] [place] [address] [place] [address] [place] [address] Social History Tobacco Use Types [...] loss documented in this encounter Care Teams Mutual Fund Accountant Relationship Specialty Start Date End Date Teresa Vaughan PCP - General Family Practice 05/29/13 05/30/17 [facility] 1400 [place] [address] documented as of this encounter
--- OUTSIDE RECORDS SUMMARY | 2022-06-16 18:00 | XMS_ITS | Encounter Summary ---
:1975 Author Organization [place] Address [address] [place] [address]. [place] [address] Care Team Providers Name Role Phone Teresa Vaughan Primary Care Provider Reason for Visit Auth/Cert - Closed Specialty Diagnoses / Procedures Referred By Contact Refer red To Contact Surgery Diagnoses Strabismus Ur Periop Procedures RECESSION RESECTION (REPAIR STRABISMUS) BILATERAL 2450 [facility] KIARA WOLF [phone] Phone: Fax: Referral ID Status Reason Start Date Expiration Date Visits Requ ested Visits Authorized [id number] Closed 1 1 Encounter Details Date Type Department Care Team Description 04/02/2014 Anesthesia Event [facility] Abby Maldonado PeriOp Services MD Shaka 2450 [facility] XX RESIGNED XX [facility] [place] [address] [place], [place] [address] (Wo rk) Anesthesia Record Procedure Summary Procedure [...] Fitzpatric k, Topical; Tolerated well VIOLET Lehman SLOOP CAPTAIN Susan t RETIRED ETT 04/02/14; 1341; Airway 04/02/14 1341 by 04/02/14 1504 by Size: 7; Cuffed; Oral Guerita Pacheco, Awilda العراقي, endotracheal tube; Blade POST GRADUATE INTERN SLOOP CAPTAIN POST GRADUATE INTERN CR NA Type: Gonzalez; Blade Size: 2; [...] benefits and alternatives discussed with: patient or senior sales representative. History & Physical Review History and physical [...] Intra-op documented in this encounter Care Teams Oncology Physician Relationship Specialty Start Date End Date Teresa Vaughan PCP - General Family Practice 05/29/13 05/30/17 [facility] [address] [place] [address] documented as of this encounter
--- OUTSIDE RECORDS SUMMARY | 2022-06-16 18:00 | XMS_ITS | Encounter Summary ---
:1975 Author Organization [place] Address [address] [place] [address] Care Team Providers Name Role Phone Teresa Vaughan Primary Care Provider Montana Meyer MD Unavailable Jeremy Gibbs MD Unavailable Jose Monahan MD Unavailable Lise Mcqueen MD Unavailable [phone] Mar Alfaro Primary Care Provider Lise Mcqueen MD Unavailable [phone] Jonh Garcia MD Unavailable Encounter Details Date Type Department Care Team Description 07/03/2013 Records - [facility] Diagnostic Imaging [address] [place] [address] Social History Tobacco Use Types Packs/Day Years [...] 12:00 AM Resu lts for this WITH TRANSITIONAL CARE MANAGER OR OT CLINICAL PROJECT MANAGER procedure are in the results section. documented in this encounter Results XR Video Swallow with TRANSITIONAL CARE MANAGER or OT (07/03/2013 12:00 AM CLINICAL PROJECT MANAGER) Anatomical Region Laterality Modality Other Specimen (Source) Anatomical Location Collection Method / Collectio n Time Received Time / Laterality Volume Narrative 07/03/2013 12:00 AM CLINICAL PROJECT MANAGER See Historical Hospital Medical Record f or documentation Procedure Note Provider, Historical - 01/10/2021Formatt ing of this note might be different from the original. See Historical Hospital Medical Record f or documentation Historical Provider IMG DIAGNOSTIC IMAGING ORDER ESTHER documented in this encounter Visit Diagnoses Not on filedocumented in this encounter Care Teams Credit Rating Checker Relationship Specialty Start Date End Date Teresa Vaughan PCP - General Family Practice 05/29/13 05/30/17 [facility] [address] [place] [address] Mar Alfaro PCP - General 05/31/17 [facility] [address] [place] [address] Montana Meyer MD MD Ophthalmology 12/10/14 05/30/17 [facility] [address] [place] [address] Jeremy Gibbs MD MD Ophthalmology 12/10/14 Jose Monahan MD MD Ophthalmology 12/10/14 Lise Mcqeuen MD Ophthalmology 05/31/17 [address] [facility] [address] [place] [phone] Lise Mcqueen, Assigned Surgical Provider 10/11/20 [address] [facility] [address] [place] [phone] Jonh Garcia MD Assigned Surgical Provider 10/12/[address] [place] [address] documented as of this encounter
--- OUTSIDE RECORDS SUMMARY | 2022-06-16 18:00 | XMS_ITS | Encounter Summary ---
:1975 Author Organization [facility] Address [address] [place] [address] Care Team Providers Name Role Phone Teresa Vaughan Primary Care Provider Montana Meyer MD Unavailable Jeremy Gibbs MD Unavailable Jose Monahan MD Unavailable Lise Mcqueen MD Unavailable [phone] Mar Alfaro Primary Care Provider Lise Mcqueen MD Unavailable [phone] Jonh Garcia MD Unavailable Encounter Details Date Type Department Care Team Description 04/07/2013 Records - [address] [address] Social History Tobacco Use Types Packs/Day Years [...] on filedocumented in this encounter Care Teams Paste Maker Relationship Specialty Start Date End Date Teresa Vaughan PCP - General Family Practice 05/29/13 05/30/17 [facility] [address] [place] [address] Mar Alfaro PCP - General 05/31/17 [facility] [address] [place] [address] Montana Meyer MD MD Ophthalmology 12/10/14 05/30/17 [facility] [address] [place] [address] Jeremy Gibbs MD MD Ophthalmology 12/10/14 Jose Monahan MD MD Ophthalmology 12/10/14 Lise Mcqueen MD Ophthalmology 05/31/[address] [place] [address] Lise Mcqueen, Assigned Surgical Provider 10/11/20 [address] [facility] [address] [place] [phone] Jonh Garcia MD Assigned Surgical Provider 10/12/20 9 [place] [address] documented as of this encounter
--- OUTSIDE RECORDS SUMMARY | 2022-06-16 18:00 | XMS_ITS | Encounter Summary ---
:1975 Author Organization [place] Address [address] [place] [address] Care Team Providers Name Role Phone RochellesheridanTeresa Primary Care Provider Montana Meyer MD Unavailable Jeremy Gibbs MD Unavailable Jose Monahan MD Unavailable Lise Mcqueen MD Unavailable [phone] Mar Alfaro Primary Care Provider Lise Mcqueen MD Unavailable [phone] Jonh Garcia MD Unavailable Ta Lane OD Unavailable Encounter Details Date Type Department Care Team Description 06/11/2013 Office Visit-[facility] Jeremy Gibbs MD [address] [place] [address] (Wo rk) Social History Tobacco Use Types Packs/Day Years Used Date Smoking Tobacco: Every Day Cigarettes 0.3 2 Alcohol Use Standard Drinks/Week Comments Yes 0 (1 standard drink = 0.6 oz pure alcoho l) occasional Sex Assigned at Date Recorded Not on file documented as of this encounter Progress Notes Jeremy Gibbs MD - 06/11/2013 12:12 PM CST Laboratory Secretary: Jeremy Gibbs Status: Signed Encounter: 2013-06-11 12:12:00.000 Type: Chart Note Mailed patient's outside CT scan and report to patient's home for her records. Electronically signed by:Madhavi Steve Jun 11 2013 12:13PM WILL CALL ORDER CLERK CALL ORDER CLERK documented in this encounter Plan of Treatment Not on filedocumented as of this encounter Visit Diagnoses Not on filedocumented in this encounter Care Teams Wet Plant Operator Relationship Specialty Start Date End Date Teresa Vaughan PCP - General Family Practice 05/29/13 05/30/17 [facility] [address] [place] [address] Mar Alfaro PCP - General 05/31/17 [facility] [address] [place] [address] Montana Meyer MD MD Ophthalmology 12/10/14 05/30/17 [facility] [address] [place] [address] Jeremy Gibbs MD MD Ophthalmology 12/10/14 Jose Monahan MD MD Ophthalmology 12/10/14 Lise Mcqueen MD Ophthalmology 05/31/[address] [place] [address] Lise Mcqueen, Assigned Surgical Provider 10/11/[address] [place] [address] Jonh Garcia MD Assigned Surgical Provider 10/12/[address] [place] [phone], [place] Assigned Surgical Provider 01/02/[address] [place] [phone] documented as of this encounter
--- OUTSIDE RECORDS SUMMARY | 2022-06-16 18:00 | XMS_ITS | Encounter Summary ---
:1975 Author Organization [place] Address [address] [place] [address]. [place] [address] Care Team Providers Name Role Phone Teresa Vaughan Primary Care Provider Encounter Details Date Type Department Care Team Description 09/17/2013 Orders Only Eye Clinic Jeremy Gibbs MD Subjective visual Robb Wangensteen [address] disturbance (Primary Building [place], [place] Dx) 9th Floor, Clinic [address] [place] [address] [place] [address] [place] [address] Social History Tobacco Use Types Packs/Day Years [...] ed documented in this encounter Care Teams Customer Expert Relationship Specialty Start Date End Date Teresa Vaughan PCP - General Family Practice 05/29/13 05/30/17 [facility] [address] [place] [address] documented as of this encounter
--- OUTSIDE RECORDS SUMMARY | 2022-06-16 18:00 | XMS_ITS | Encounter Summary ---
:1975 Author Organization [place] Address [address] [place] [address] Care Team Providers Name Role Phone RochellelauroTeresa martinez Primary Care Provider Montana Meyer MD Unavailable Jeremy Gibbs MD Unavailable Jose Monahan MD Unavailable Lise Mcqueen MD Unavailable [phone] Mar Alfaro Primary Care Provider Lise Mcqueen MD Unavailable [phone] Jonh Garcia MD Unavailable Encounter Details Date Type Department Care Team Description 03/15/2013 Records - [address] Provider, [address] [address] Social History Tobacco Use Types Packs/Day Years [...] on filedocumented in this encounter Care Teams Fabricator Artificial Breast Relationship Specialty Start Date End Date Teresa Vaughan PCP - General Family Practice 05/29/13 05/30/17 [facility] [address] [place] [address] Mar Alfaro PCP - General 05/31/17 [facility] [address] [place] [address] Montana Meyer MD MD Ophthalmology 12/10/14 05/30/17 [facility] [address] [place] [address] Jeremy Gibbs MD MD Ophthalmology 12/10/14 Jose Monahan MD MD Ophthalmology 12/10/14 Lise Mcqueen MD Ophthalmology 05/31/17 [address] [facility] [address] [place] [address] Lise Mcqueen, Assigned Surgical Provider 10/11/20 [address] [facility] [address] [place] [address] Jonh Garcia MD Assigned Surgical Provider 10/12/20 [address] [place], [place] [phone] documented as of this encounter
--- OUTSIDE RECORDS SUMMARY | 2022-06-16 18:00 | XMS_ITS | Encounter Summary ---
:1975 Author Organization [place] Address [address] [place] [address] Care Team Providers Name Role Phone Teresa Vaughan Lyla Primary Care Provider Reason for Visit Auth/Cert - Closed Specialty Diagnoses / Procedures Referred By Contact Refer red To Contact Surgery Diagnoses Strabismus Ur Periop Procedures RECESSION RESECTION (REPAIR STRABISMUS) BILATERAL 2450 [place] [address] Phone: Fax: Referral ID Status Reason Start Date Expiration Date Visits Requ ested Visits Authorized [id number] Closed 1 1 Encounter Details Date Type Department Care Team Description 04/02/2014 Hospital Encounter UR PACU Ricardo Meyerick Postoperative eye 2450 Christopher Arita MD [facility] (Primary Dx) e, [place], [place] [address] [address] [place], [place] [phone] Social History Tobacco Use Types Packs/Day Years [...] InstructionsNicole Jj - 04/02/2014 5:52 PM CDT [place] [facility] Adult Discharge Orders & Instructions [...] resolve slowly over 2- 4 weeks. ??? [place] tinged tears ??? Swollen, painful or itchy [...] to the tearing and oinment. Please call [phone] for other concerns including sustained vision loss, [...] daily as needed for anxiety (or sleep) [id number]-[id number]-[id number] Apply to both eyes 1 Tube 1 [...] the lateral rectus SURGEON: Montana Meyer MD RE DYE HAND: Sathya Wallis MD IMPLANTS: None COMPLICATIONS: None [...] for the entire procedure. Montana Meyer MD Director Summer Sessions Pediatric Ophthalmology & Strabismus Department of Ophthalmology & Visual Neurosciences [facility] Brief Op Note - Sathya Wallis MD - 04/02/2014 2:51 PM CDT [facility] Brief Operative Note Pre-operative diagnosis: Strabismus [...] athologist Signature HCG Qual Urine Negative [facility] Specimen Anatomical Collection Method Collection Time Receive d Time (Source) Location / / Volume Laterality Urine specimen URINE SPECIMEN / 04/02/2014 10:51 04/02 (specimen) Unknown AM CDT 10:56 AM CDT Abby Maldonado MD LAB - URINE ORDERABLES Performing Organization Address City/State/ZIP Code Phon e Number [facility] [address] [place] [address] [facility] documented in this encounter Visit [...] Intra-procedure documented in this encounter Care Teams Fountain Roller Assembler Relationship Specialty Start Date End Date Teresa Vaughan PCP - General Family Practice 05/29/13 05/30/17 [facility] [address] [place] [address] documented as of this encounter
--- OUTSIDE RECORDS SUMMARY | 2022-06-16 18:00 | XMS_ITS | Encounter Summary ---
:1975 Author Organization [place] Address [address] [place] [address]. [place] [address] Care Team Providers Name Role Phone Teresa Vaughan Lyla Primary Care Provider Reason for Visit Auth/Cert - Closed Specialty Diagnoses / Procedures Referred By Contact Refer red To Contact Surgery Diagnoses Strabismus Ur Periop Procedures RECESSION RESECTION (REPAIR STRABISMUS) BILATERAL [facility] [place] [address] Phone: Fax: Referral ID Status Reason Start Date Expiration Date Visits Requ ested Visits Authorized [id number] Closed 1 1 Encounter Details Date Type Department Care Team Description 04/02/2014 Surgery [facility] Montana Meyer S trabismus Repair, Both PeriOp Services MD Eyes [address] [place] [phone] [address] [facility] [phone] [place] [address] Surgery Details Date/Time Status Location OR Service [...] InstructionsNicole Jj - 04/02/2014 5:52 PM CDT [facility] Adult Discharge Orders & Instructions [...] resolve slowly over 2- 4 weeks. ??? [place] tinged tears ??? Swollen, painful or itchy [...] to the tearing and oinment. Please call [phone] for other concerns including sustained vision loss, [...] daily as needed for anxiety (or sleep) [id number]-[id number] Apply to both eyes 1 Tube 1 [...] the lateral rectus SURGEON: Montana Meyer MD ELECTROLESS PLATER: Sathya Wallis MD IMPLANTS: None COMPLICATIONS: None [...] for the entire procedure. Montana Meyer MD Metal Sprayer Production Pediatric Ophthalmology & Strabismus Department of Ophthalmology & Visual Neurosciences [facility] Brief Op Note - Sathya Wallis MD - 04/02/2014 2:51 PM CDT [facility] Brief Operative Note Pre-operative diagnosis: Strabismus [...] athologist Signature HCG Qual Urine Negative NEG [facility] LAB Specimen Anatomical Collection Method Collection Time Receive d Time (Source) Location / / Volume Laterality Urine specimen URINE SPECIMEN / 04/02/2014 10:51 04/02 (specimen) Unknown AM CDT 10:56 AM CDT Abby Maldonado MD LAB - URINE ORDERABLES Performing Organization Address City/State/ZIP Code Phon e Number [facility] [address] [place] [address] [facility] documented in this encounter Visit Diagnoses [...] on (CANCELED) 1410 (Given - Provider: Montana Myeer MD) PRN, dry eyes, Starting e 04/02/14 [...] (CANCELED) 1355 (Given - Provider: Maggie Page RN)0285 (Given - Provider: Montana Meyer MD - Comment: subconjuntival flush) PRN, irritation, Starting Tu04/02/14 at 1355, Intra-procedure documented in this encounter Care Teams Agile Tester Relationship Specialty Start Date End Date Teresa Vaughan PCP - General Family Practice 05/29/13 05/30/17 [facility] [address] [place] [address] documented as of this encounter
--- OUTSIDE RECORDS SUMMARY | 2022-06-16 18:00 | XMS_ITS | Encounter Summary ---
:1975 Author Organization [facility] Address [address] [place] [address]. [place] [address] Care Team Providers Name Role Phone Teresa Vaughan Primary Care Provider Reason for Visit Rehab Therapy Occupational Therapy (Routine) - Closed Specialty Diagnoses / Procedures Referred By Contact Refer red To Contact Occupational Therapy Diagnoses 90 Min Eval per Teresa Franklin Uu Ot Outpt Visn Procedures EVALUATION 90 [facility] Clin [address] [place] [address] [address] 9[address] Floor Clinic [address] [place] [address] Phone: Fax: Referral ID Status Reason Start Date Expiration Date Visits Requ ested Visits Authorized [id number] Closed 06/14/2013 08/07/2013 365 365 Encounter Details Date Type Department Care Team Description 06/18/[address] [facility] Rebecca Thompson OT [facility] [place] [address] [address] Rehabilitation Jeremy Gibbs MD [address] [place] [address] 9[address] Floor Clinic [address] [place] [address] Social History Tobacco Use Types [...] 1975 Visit Type Type of Visit: Initial Fine Jewelry Sales Associate Fine Jewelry Sales Associate Present: No General Information Start Of Care [...] of current problem: is receiving therapy at [facility], has been in inpatient facility since accident Prior ADL/IADL status: Independent prior to onset Others 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: Parent(s) Patient/family Goals Statement: reading, mobility, walking and wheeling. 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 Pt is receiving OT at [facility]. Therapy Diagnosis: Impaired ADL/IADL with deficits in: Reading based ADL;Home management;director product management;Work performance Rehab Potential: Good Factors influencing [...] (continued therapuetic intervention per current OT at [facility]) Plan Comments: Patient to return for re-evaluation of visual rehabiliation needs in 6 months, with prisms to be reconsidered Total Evaluation Time Total Evaluation Time: 75 Therapy Certification TATISTICS MANAGER documented in this encounter Plan of Treatment Not on filedocumented as of this encounter Visit Diagnoses Not on filedocumented in this encounter Care Teams Solutions Consultant Relationship Specialty Start Date End Date Teresa Vaughan PCP - General Family Practice 05/29/13 05/30/17 [facility] [address] [place] [address] documented as of this encounter
--- OUTSIDE RECORDS SUMMARY | 2022-06-16 18:00 | XMS_ITS | Encounter Summary ---
:1975 Author Organization [facility] Address [address] [place] [address]. [place] [address] Care Team Providers Name Role Phone Teresa Vaughan Primary Care Provider Reason for Visit Reason Comments Diplopia Evaluation see Dr. Gibbs's note from rosalina españa for specific exam elements. Encounter Details Date Type Department Care Team Description 01/17/2014 Documentation Only Montana Sandovalo maxx Evaluation [facility] MD Lyla (see Dr. Gibbs's note Clinic [facility]... [address] 3rd Floor, [address] [place], [place] [address] [place] [address] [place], [place] [phone] [address] (Work) [phone] Social History Tobacco Use Types Packs/Day Years [...] Primary documented in this encounter Care Teams Brand Attendant Relationship Specialty Start Date End Date Teresa Vaughan PCP - General Family Practice 05/29/13 05/30/[address] [address] documented as of this encounter
--- OUTSIDE RECORDS SUMMARY | 2022-06-16 18:00 | XMS_ITS | Encounter Summary ---
:1975 Author Organization [facility] Address [address] [place] [address]. 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 No pain. 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
--- OUTSIDE RECORDS SUMMARY | 2022-06-16 18:00 | XMS_ITS | Encounter Summary ---
:1975 Author Organization [place] Address [address] [place] [address]. [place] [address] Care Team Providers Name Role Phone Teresa Vaughan Primary Care Provider Encounter Details Date Type Department Care Team Description 01/17/2014 Hospital Encounter [facility] Rebecca Thompson, OT Rehabilitation [facility] [place] [id number] 9[address] Floor Clinic [address] [place] [id number] Social History Tobacco Use Types Packs/Day Years [...] daily as needed for anxiety (or sleep) [id number]-[id number] Apply to both eyes 1 Tube 1 [...] [place] KEY LUCIANO [id number] [address] [address] Beginning/End Dates of Reporting Period: 01/17/2014 to [...] home tomorrow, with support of [employer] and [employer] workers Rebecca Thompson OT - 01/17/2014 5:47 PM CDT OUTPATIENT OCCUPATIONAL THERAPY VISION EVALUATION Patient: Key Luciano : 1975 Visit Type Type of Visit: Re-Evaluation Tamping Machine Operator Road Forms Tamping Machine Operator Road Forms Present: No General Information Start Of Care [...] prior to onset Others 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: playroom attendant/caregiver (Ching) Patient/family Goals Statement: managing diplopia in sunlight, understanding if prism would help her Social History/Home Environment Living Environment: [place] Current Community Support: (discharge to home tomorrow - [employer] and [employer] workers) Patient Role/employment History??: Disabled Avocational: camping, [...] patient response triggers next stimulus Norm: Safe Cutter Inspector recommended score 52+ Patient Score (Mode A, [...] on filedocumented in this encounter Care Teams Assistant To The Ceo Relationship Specialty Start Date End Date Teresa Vaughan PCP - General Family Practice 05/29/13 05/30/[address] [address] documented as of this encounter
--- OUTSIDE RECORDS SUMMARY | 2022-06-16 18:00 | XMS_ITS | Encounter Summary ---
:1975 Author Organization [facility] Address [address] [place] [address] Care Team Providers Name Role Phone Teresa Vaughan Primary Care Provider Montana Meyer MD Unavailable Jeremy Gibbs MD Unavailable Jose Monahan MD Unavailable Lise Mcqueen MD Unavailable [phone] Mar Alfaro Primary Care Provider Lise Mcqueen MD Unavailable [phone] Jonh Garcia MD Unavailable Ta Lane [...] Berg, DIANE - 06/05/2013 7:30 AM CDT Product Trainer: Laurie Berg Status: Final Encounter: 2013-06-05 07:30:00.000 Type: Rooming Note Reason For Visit KEY LUCIANO is a 38 year old female being seen in clinic for evaluation of blurry vision of righteye and loss of vision of left eye, per pt. Do you have any other appointments, tests or procedures within the [facility] system for this same day? No. Pain [...] By: Laurie Berg ; 06/05/2013 10:39 AM FINANCIAL ASSISTANCE ADVISOR. documented in this encounter Plan of Treatment Not on filedocumented as of this encounter Visit Diagnoses Not on filedocumented in this encounter Care Teams Marine Photographer Relationship Specialty Start Date End Date Teresa Vaughan PCP - General Family Practice 05/29/13 05/30/17 [facility] [address] [place] [address] Mar Alfaro PCP - General 05/31/17 [facility] [address] [place] [address] Montana Meyer MD MD Ophthalmology 12/10/14 05/30/17 [facility] [address] [place] [address] Jeremy Gibbs MD MD Ophthalmology 12/10/14 Jose Monahan MD MD Ophthalmology 12/10/14 Lise Mcqueen MD Ophthalmology 05/31/17 [address] [facility] [address] [place] [address] Lise Mcqueen, Assigned Surgical Provider 10/11/20 [address] [facility] [address] [place] [address] Jonh Garcia MD Assigned Surgical Provider 10/12/[address] [place] [id number], ILDA Assigned Surgical Provider 01/02/[address] [place] [address] documented as of this encounter
--- OUTSIDE RECORDS SUMMARY | 2022-06-16 18:00 | XMS_ITS | Encounter Summary ---
:1975 Author Organization [facility] Address [address] [place] [address]. [place] [address] Care Team Providers Name Role Phone Teresa [...] Department Care Team Description 07/18/2014 Office Visit [facility] Eye Adult Double Shani Gibbs MD [address] [place] [address] Alternating esotropia (Primary Dx); Vision Montana Meyer MD [facility] [address] [place] [address] Sixth nerve palsy of both eyes; [address] Left homonymous hemianopsia; 3rd Floor, [address] [place] [phone] Social History Tobacco Use Types Packs/Day Years Used Date Smoking Tobacco: Every Day Cigarettes 0.3 2 Alcohol Use Standard Drinks/Week Comments Yes 0 (1 standard drink = 0.6 oz pure alcoho l) occasional Sex Assigned at Date Recorded Not on file documented as of this encounter Patient Instructions Patient InstructionsBoMontana grande MD - 07/18/2014 11:11 AM CST Consider further strabismus surgery. DER LABORER documented in this encounter Progress Notes Montana [...] with this note. - Montana Meyer MD DER LABORER documented in this encounter Nursing Notes Blue [...] black line in vision on left side DER LABORER documented in this encounter Plan of Treatment Scheduled Orders Name Type Priority Associated Diagnoses Order S chedule Silvina-Operative Procedures Routine Alternating Esot ropia Ordered: 07/18/2014 Worksheet (Peds) Sixth nerve palsy of both eyes Left homonymous hemianopsia Subjective visual disturbance documented as of this encounter Procedures Procedure Name Priority Date/Time Associated Diagnosis Comme nts SENSORIMOTOR Routine 07/18/2014 11:29 AM Alternating Esotropia BLENDER LABORER EXTERNAL PHOTOS OU (BOTH Routine 07/18/2014 11:29 AM Alt ernating Esotropia EYES) BLENDER LABORER Sixth nerve palsy of both eyes documented in this encounter Results Sensorimotor (07/18/2014 11:29 AM BLENDER LABORER) Jeremy Gibbs MD OPHTHALMOLOGY External Photos OU (both eyes) (07/18/2014 11:29 AM BLENDER LABORER) Montana Meyer MD OPHTHALMOLOGY documented in this encounter Visit Diagnoses Diagnosis 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
--- OUTSIDE RECORDS SUMMARY | 2022-06-16 18:00 | XMS_ITS | Encounter Summary ---
:1975 Author Organization [place] Address [address] [place] [address] Care Team Providers Name Role Phone Unavailable Primary Care Provider Unavailable Reason for Visit Reason Comments Vaginal Problem Encounter Details Date Type Department Care Team Description 01/23/2003 Office Visit BowieKerry Mcfarland, VAGINI TIS NOS (Primary Dx); Physicians [facility] [address] , [address] [facility] [address] [place] [address] [phone] Social History Tobacco Use Types Packs/Day Years [...] patient's allergies indicates: No Known Aller* Toba director patient accounting Use: Not Asked Alcohol Use: Not Asked [...] 01/23/2003 4:09 pm Patient is new to [facility]. She thinks that she may have [...] A WET PREP (01/23/2003 4:34 PM CDT) [facility] Method Time Signature Trichomonas neg BFP INTERNAL [...]
--- OUTSIDE RECORDS SUMMARY | 2022-06-16 18:02 | XMS_ITS | Clinical Summary ---
:1975 Author Organization [facility] [place] [address] Care Team Providers Name Role Phone Mar Alfaro DO Primary Care Provider Rebecca Cardenas CHIEF PROGRAM OFFICER Unavailable Allergies No known active allergies Medications [...] mild (HC) medication order prevagen 0 06/02/2022 [facility], Clinic, or Ordered Dose Route [...] 10/27/2017 Overview: 06/26/17 signed MIGDALIA Lopez C, CHIEF PROGRAM OFFICER / psychiatry Panic disorder without agoraphobia 05/02/2017 Insomnia 05/02/2017 Controlled substance agreement signed 01/18/2017 Overview: Signed; 09/03/15 Dr. Skyler Gar MD / Hypertension 09/03/2015 Impaired fasting [...] contusion, C5 fracture, T4 fracture. Recovery at [place]. Cervical high risk HPV (human papillomavirus) test [...] Encounters Date Type Specialty Care Team Description 06/16/2022 Telephone Mar Alfaro, Follow Up DO 06/14/2022 Office Visit Mar Alfaro, VIPUL Foll ow up (Was on the DO phone with her sister when she started slu rring her speech. Her sis ter was the one who called 911. Here with her son bryan o states that sister kristopher dobbins it sounded like bryan at would be a seizure over the phone. Patient does no t remember any thing.); An xiety (Has feeling of anxi ety all the time and is wan ting it to go away.) 06/14/2022 Orders Only Staff, Other Clinical <No sc ans attached> 06/14/2022 Orders Only Staff, Other Clinical <No sc ans attached> 06/14/2022 Orders Only Staff, Other Clinical <No sc ans attached> 06/14/2022 Orders Only Staff, Other Clinical <No sc ans attached> 06/14/2022 Travel 06/14/2022 Telephone Mar Alfaro Questio ns (General DO questions/ info rmation ) 06/13/2022 Orders Only Scanner <No scans attac hed> 06/02/2022 Office Visit Mar Alfaro, Blood P ressure DO 06/02/2022 Travel 05/05/2022 Telemedicine Rebecca Cardenas, CHIEF PROGRAM OFFICER Medica tion Management; Telehealth ([place]) 05/05/2022 Travel 05/05/2022 Refill Rebecca Cardenas, CHIEF PROGRAM OFFICER Refill Request (Duloxetine) 05/04/2022 Telephone Mar Alfaro, Results DO 04/29/2022 Office Visit Mar Alfaro, Blood P ressure; DO Contraception ( would like IUD removed); Immunization/In jection (COVID-19 vacci ne) 04/29/2022 Travel 04/21/2022 Refill Mar Alfaro, Refill Request DO (Hydroxyzine Hc l) 04/08/2022 Lab Requisition Unknown, Doctor 04/05/2022 Telephone Mar Alfaro, DO 04/03/2022 Orders Only Mar Alfaro, <No sca ns attached> DO 03/31/2022 Office Visit Mar Alfaro, Medicat ion Management; IUD DO (Weight gain?) 03/31/2022 Travel 03/31/2022 Telephone Kortney Reyesy NEEDLE CONTROL CHENILLER 03/30/2022 Telemedicine Rebecca Cardenas, BAYLEE Medica tion Management; Telehealth ([place]) 03/30/2022 Telephone Rebecca Cardenas, CHIEF PROGRAM OFFICER Appoin tment (Virtual ) from Last 3 Months Immunizations Name Administration Dates Next Due COVID-19 vaccine (iSoftStoneNTAyi Laile 04/29/2022 30mcg/0.3mL) 12YO+ BIVALENT BOOSTER PF, MDV COVID-19 vaccine (iSoftStoneNTAyi Laile 10/07/2021 30mcg/0.3mL) 12YO+ MAYANK-SUCROSE PF, MDV Hepatitis [...] in contact with No / Unsu re 06/14/2022 2:21 PM UM RN someone who was confirmed or suspected [...] Sign Reading Time Taken Comments Blood Pressure 153/90 06/14/2022 2:32 PM UM RN Pulse 112 06/14/2022 2:32 PM UM RN Temperature 36.7 ??C (98.1 ??F) 06/14/2021 10:22 AM UM RN Respiratory Rate 16 06/14/2021 10:22 AM UM RN Oxygen Saturation 92% 06/14/2022 2:32 PM UM RN Inhaled Oxygen Concentration - - Weight 95.3 kg (210 lb) 06/14/2022 2:32 PM UM RN Height 154 cm (5' 0.63) 11/19/2021 2:02 PM CDT Body Mass Index 40.16 11/19/2021 2:02 PM CDT Plan of Treatment Upcoming Encounters Date Type Specialty Care Team Description 06/22/2022 Office Visit Faizan Aguillon MD [address] [address] (Wo rk) 07/12/2022 Office Visit Mar Alfaro DO [address] [address] (Wo rk) 07/26/2022 Telemedicine Rebecca Cardenas , CHIEF PROGRAM OFFICER [address] [place], [place] [address] (Wo rk) 08/11/2022 Office Visit Mar Alfaro, DO [address] [place], [place] [address] (Wo rk) Health Maintenance Due Date Last Done Comments Colonoscopy through age 75 2020 BMI (ht and wt on same day) for 11/19/2022 11/19/2021, 0204/2021, age 18+ 03/20/2020, Additional history exists Mammogram [...] Name Priority Date/Time Associated Diagnosis Comme nts SCAN 06/15/2022 12:00 Results for this CORRESP-LABORATORY AM UM RN procedure are in RESULTS the results section. SCAN CORRESP-IMAGING 06/15/2022 12:00 Res ults for this AM UM RN procedure are i n the results section. SCAN 06/14/2022 12:00 Results for this CORRESP-LABORATORY AM UM RN procedure are in RESULTS the results section. SCAN 06/14/2022 12:00 Results for this CORRESP-LABORATORY AM UM RN procedure are in RESULTS the results section. SCAN CORRESP-IMAGING 06/14/2022 12:00 Res ults for this AM UM RN procedure are i n the results section. SCAN CORRESP-IMAGING 06/14/2022 12:00 Res ults for this AM UM RN procedure are i n the results section. SCAN-CT INTERPRETATION 06/13/2022 12:00 AM CDT URINALYSIS MICROSCOPIC Routine 04/29/2022 1:01 Urinary frequen cy Results for this PM CDT procedure are i n the results section. UA W/ SEDIMENT EXAM Routine 04/29/2022 1:01 Urinary frequency Results for this REFLEXED PER CRITERIA PM CDT proced ure are in the results section. FSH Add On 04/29/2022 [...] section. ANTI HCV Add On 03/31/2022 2:45 Need for hepatitis C Resu lts for this PM CDT screening test procedure are in the results section. BASIC METABOLIC PANEL Routine 03/31/2022 2:45 Hypertension Res ults for this PM CDT procedure are i n the results section. HEMOGLOBIN Routine 03/31/2022 2:45 Hair loss Results for this PM CDT procedure are i n the results section. TSH WITH REFLEX Routine 03/31/2022 2:45 Hair loss Results f or this PM CDT procedure are i n the results section. from Last 3 Months Results SCAN CORRESP-LABORATORY RESULTS (06/15/2022 12:00 AM UM RN)Only the most recent of 3 resultswithin the time period is included. Narrative 06/15/2022 12:00 AM UM RN This result has an attachment that is no t available. Ordered by an unspecified provider. Other Clinical Staff OTHER SCAN CORRESP-IMAGING (06/15/2022 12:00 AM UM RN)Only the most recent of3 results within the time period is included. Narrative 06/15/2022 12:00 AM UM RN This result has an attachment that is no t available. Ordered by an unspecified provider. Other Clinical Staff OTHER SCAN-CT INTERPRETATION (06/13/2022 12:00 AM CDT) Narrative This result has an attachment that is no t available. Scanner OTHER URINALYSIS MICROSCOPIC (04/29/2022 1:01 PM CDT) athologist Signature RBC 0-2 0-2, None 04/29/2022 [facility] Seen /HPF 1:22 PM CDT [facility] WBC 3-5 0-2, 3-5, 04/29/2022 [facility] None Seen 1:22 PM CDT [place] [facility] BACTERIA Few None Seen, 04/29/2022 [facility] Rare, Few 1:22 PM CDT [place] Bacteria/H CLINIC PF EPITHELIAL Few None Seen, 04/29/2022 [facility] CELLS Few 1:22 PM CDT [place] Epi/HPF CLINIC Specimen Anatomical Collection Method Collection Time Receive d Time (Source) Location / / Volume Laterality Urine URINE SPECIMEN / Non-Blood / 04/29/2022 1:01 PM 04/29 1:01 Unknown Unknown CDT PM CDT Mar Alfaro DO URINE Performing Organization Address City/State/ZIP Code Phon e Number [facility] [address] [place], [place] [id number] (ABNORMAL) UA W/ SEDIMENT EXAM REFLEXED PER CRITERIA (04/29/2022 1:01 PM CDT) [facility] gist Method Time Signature COLOR Yellow Yellow Color 04/29/2022 [facility] 1:22 PM CDT [facility] CLARITY Clear Clear 04/29/2022 [facility] Clarity 1:22 PM CDT [facility] SPECIFIC 1.015 1.010, 04/29/2022 [facility] GRAVITY,URINE 1.015, 1:22 PM CDT [place] 1.020, 1.025 [facility] PH,URINE 7.0 6.0, 7.0, 04/29/2022 [facility] 8.0, 5.5, 1:22 PM CDT [place] 6.5, 7.5, CLINIC 8.5 UROBILINOGEN, Normal Normal EU/dl 04/29/2022 [facility] QUALITATIVE 1:22 PM CDT [facility] PROTEIN, Negative Negative 04/29/2022 [facility] URINE mg/dL 1:22 PM T [facility] GLUCOSE, Negative Negative 04/29/2022 [facility] URINE mg/dL 1:22 PM T [facility] KETONES,URINE Negative Negative 04/29/2022 [facility] mg/dL 1:22 PM T [facility] BILIRUBIN,URI Negative Negative 04/29/2022 [facility] NE 1:22 PM T [facility] OCCULT Negative Negative 04/29/2022 [facility] BLOOD,URINE 1:22 PM T [facility] NITRITE Negative Negative 04/29/2022 [facility] 1:22 PM CDT [facility] LEUKOCYTE Trace (A) Negative 04/29/2022 [facility] ESTERASE 1:22 PM T [facility] Specimen Anatomical Collection Method Collection Time Receive d Time (Source) Location / / Volume Laterality Urine URINE SPECIMEN / Non-Blood / 04/29/2022 1:01 PM 04/29 1:01 Unknown Unknown CDT PM CDT Mar Alfaro DO URINE Performing Organization Address City/State/ZIP Code Phon e Number [facility] [address] [place] [address] POTASSIUM (04/29/2022 12:55 PM CDT) athologist Signature POTASSIUM 3.7 3.5 - 5.0 04/30/2022 [facility] mmol/L 2:34 PM CDT LABORATORY-CENTR AL LABORATORY Specimen Anatomical Collection Method / Collection Time Recei sue Time (Source) Location / Volume Laterality Blood BLOOD SPECIMEN / Venipuncture / 04/29/2022 12:55 04/29 Unknown Unknown PM CDT 12:59 PM CDT Mar Alfaro DO CHEMISTRY Performing Organization Address City/[facility]/ZIP Code Phon e Number [facility] [address] [place] [address] LABORATORY-CENTRAL [address] LABORATORY FSH (04/29/2022 12:55 PM CDT) P athologist Signature FSH 45.0 mIU/mL 04/30/2022 [facility] 3:27 PM CDT LABORATORY-CENTR AL LABORATORY Specimen Anatomical Collection Method / Collection Time Recei sue Time (Source) Location / Volume Laterality Blood BLOOD SPECIMEN / Venipuncture / 04/29/2022 12:55 04/29 Unknown Unknown PM CDT 12:59 PM CDT Narrative [facility] LABORATORY-CENTRAL LABORAT ORY - 04/30/2022 3:27 PM CDT ? Female: ??Follicular ? (3.0-8.1) ?Ovulatory Peak ? (2.6-16.7) ?Luteal ? (1.4-5.5) ?Post Menopausal ?(26.7-133.4) ? Male: ? (1.0-12.0) Mar Alfaro DO CHEMISTRY Performing Organization Address City/State/ZIP Code Phon e Number [facility] [address] [place] [address] LABORATORY-CENTRAL 2000 LABORATORY QFT MITOGEN PERFORMABLE (04/08/2022 12:00 PM CDT) P athologist Signature MITOGEN 10.00 IU/mL 04/10/2022 [facility] 1:01 PM CDT LABORATORY-CENTR AL LABORATORY Specimen Anatomical Collection Method Collection Time Receive d Time (Source) Location / / Volume Laterality Blood BLOOD SPECIMEN / Client Collect / 04/08/2022 12:00 08/2021 Unknown Unknown PM CDT 10:12 PM CDT Doctor Unknown CHEMISTRY Performing Organization Address City/[facility]/ZIP Code Phon e Number [facility] [address] [place] [address] LABORATORY-CENTRAL 2000 LABORATORY QFT TB2 PERFORMABLE (04/08/2022 12:00 PM CDT) P athologist Signature TB2 0.04 IU/mL 04/10/2022 [facility] 1:01 PM CDT LABORATORY-CENTR AL LABORATORY Specimen Anatomical Collection Method Collection Time Receive d Time (Source) Location / / Volume Laterality Blood BLOOD SPECIMEN / Client Collect / 04/08/2022 12:00 08/2021 Unknown Unknown PM CDT 10:12 PM CDT Doctor Unknown CHEMISTRY Performing Organization Address City/[facility]/ZIP [facility] [place]on e [place] [facility] [address] [place] [address] LABORATORY-CENTRAL 1999 LABORATORY QFT TB1 PERFORMABLE (04/08/2022 12:00 PM CDT) P athologist Signature TB1 0.01 IU/mL 04/10/2022 [facility] 1:01 PM CDT LABORATORY-CENTR AL LABORATORY Specimen Anatomical Collection Method Collection Time Receive d Time (Source) Location / / Volume Laterality Blood BLOOD SPECIMEN / Client Collect / 04/08/2022 12:00 08/2021 Unknown Unknown PM CDT 10:12 PM CDT Doctor Unknown CHEMISTRY Performing Organization Address City/[facility]/ZIP [facility] Phon e Number [facility] [address] [place] [address] LABORATORY-CENTRAL 2000 LABORATORY QUANTIFERON TB GOLD PLUS (04/08/2022 12:00 PM CDT) [facility] gist Method Time Signature QFTP NIL 0.06 04/10/2022 [facility] 1:32 PM CDT LABORATORY-CE NTRAL LABORATORY TB1 0.01 IU/mL 04/10/2022 [facility] 1:32 PM CDT LABORATORY-CE NTRAL LABORATORY TB2 0.04 IU/mL 04/10/2022 [facility] 1:32 PM CDT LABORATORY-CE NTRAL LABORATORY MITOGEN 10.00 IU/mL 04/10/2022 [facility] 1:32 PM CDT LABORATORY-CE NTRVT LABORATORY QFTP TB AG1 - NIL <0.00 04/10/2022 [facility] 1:32 PM CDT LABORATORY-CE NTRVT LABORATORY QFTP TB AG2 - NIL <0.00 04/10/2022 [facility] 1:32 PM CDT LABORATORY-CE NTRAL LABORATORY QFTP MITOGEN - NIL 9.94 04/10/2022 [facility] 1:32 PM CDT LABORATORY-CE NTRVT LABORATORY QFTP QUANTIFERON Negative Negative 04/10/2022 [facility] INTERPRETATION 1:32 PM CDT LABORATORY-CE NTRAL LABORATORY Specimen Anatomical Collection Method Collection Time Receive d Time (Source) Location / / Volume Laterality Blood BLOOD SPECIMEN / Client Collect / 04/08/2022 12:00 08/2021 Unknown Unknown PM CDT 10:12 PM CDT Narrative [facility] LABORATORY-CENTRAL LABORAT ORY - 04/10/2022 1:32 PM CDT M. tuberculosis [...] Organization Address City/State/ZIP Code Phon e Number [facility] [address] [place] [address] LABORATORY-CENTRAL 2000 LABORATORY TSH WITH REFLEX (03/31/2022 2:45 PM CDT) P athologist Signature TSH 0.58 0.35 - 4.94 04/01/2022 [facility] uIU/mL 11:10 AM CDT LABORATORY-CENTR AL LABORATORY Specimen Anatomical Collection Method / Collection Time Recei sue Time (Source) Location / Volume Laterality Blood BLOOD SPECIMEN / Venipuncture / 03/31/2022 2:45 2021 2:45 Unknown Unknown PM CDT PM CDT Narrative [facility] LABORATORY-CENTRAL LABORAT ORY - 04/01/2022 11:10 AM CDT In Adults, TSH values between 5.00 and 10.00 uIU/ml do not necessarily indicate the presence of Hyp othyroidism. Correlation with clinical findings such as presence of goiter and/or Thyroperoxidase (TPO) Antibody ma y be helpful. For more information please refer to [place] 20 ; 291: [id number]. Mar Alfaro DO CHEMISTRY Performing Organization Address City/[facility] Phon e Number [facility] [address] [place] [address] [place] [address] LABORATORY-CENTRAL 2000 LABORATORY ANTI HCV (03/31/2022 2:45 PM CDT) [facility] gist Method Time Signature HEPATITIS C Non-Reacti Non-Reacti 04/01/2022 [facility] ANTIBODY ve ve 11:10 AM CDT [facility] TR[facility] LABORATORY Comment: Antibodies to HCV not detected; does not exclude the possibility of exposure to HCV. Specimen Anatomical Collection Method / Collection Time Recei sue Time (Source) Location / Volume Laterality Blood BLOOD SPECIMEN / Venipuncture / 03/31/2022 2:45 2021 2:45 Unknown Unknown PM CDT PM CDT Mar Alfaro DO SEND OUTS Performing Organization Address City/State/ZIP [facility] Phon e Number [facility] [address] [place], [place] [address] [address] LABORATORY-CENTRAL 2000 LABORATORY HEMOGLOBIN (03/31/2022 2:45 PM CDT) athologist Signature HEMOGLOBIN 15.8 12.0 - 16.0 03/31/2022 [facility] g/dL 2:58 PM CDT [facility] MCV 85 80 - 100 fL 03/31/2022 [facility] 2:58 PM CDT [facility] Specimen Anatomical Collection Method / Collection Time Recei sue Time (Source) Location / Volume Laterality Blood BLOOD SPECIMEN / Venipuncture / 03/31/2022 2:45 2021 2:45 Unknown Unknown PM CDT PM CDT Mar Alfaro DO HEMATOLOGY Performing Organization Address City/State/ZIP Code Phon e Number [facility] [address] [place] [address] (ABNORMAL) BASIC METABOLIC PANEL (03/31/2022 2:45 PM CDT) Analysis Performed At Patho logist Time Signature SODIUM 139 135 - 145 04/01/2022 [facility] mmol/L 11:17 AM CDT LABORATORY-[facility] TR[facility] LABOR[facility]ORY POTASSIUM 3.3 (L) 3.5 - 5.0 04/01/2022 [facility] mmol/L 11:17 AM CDT [facility] TR[facility] LABOR[facility]ORY CHLORIDE 97 (L) 98 - 110 04/01/2022 [facility] mmol/L 11:17 AM CDT [facility] CO2,TOTAL 28 21 - 31 04/01/2022 [facility] mmol/L 11:17 AM CDT [facility] ANION GAP 14 5 - 18 04/01/2022 [facility] 11:17 AM CDT [facility] GLUCOSE 101 (H) 65 - 100 04/01/2022 [facility] mg/dL 11:17 AM CDT [facility] CALCIUM 10.1 8.5 - 10.5 04/01/2022 [facility] mg/dL 11:17 AM CDT [facility] BUN 7 (L) 8 - 25 04/01/2022 [facility] mg/dL 11:17 AM CDT [facility] CREATININE 0.95 0.57 - 04/01/2022 [facility] 1.11 mg/dL 11:17 AM CDT [facility] BUN/CREAT RATIO 7 (L) 10 - 20 04/01/2022 [facility] 11:17 AM CDT [facility]ORY eGFR 75 (L) >90 04/01/2022 [facility] mL/min/1.7 11:17 AM CDT LABORATORY-[facility] 3m2 TRAL [...] Organization Address City/State/ZIP Code Phon e Number [employer] [address] [place] [address] LABORATORY-CENTRAL 2000 LABORATORY from Last 3 Months Insurance Payer Benefit Plan / Subscriber ID Effective Dates Phone Addre ss Type Group MEDICARE PART B MEDICARE PART B [id number] 2015-Present ATTN: CLAIMS - HB USE ONLY HB ONLY [address] MEDICARE PART A MEDICARE PART A [id number] 2015-Present ATTN: CLAIMS - HB USE ONLY HB ONLY [address] [place] [address] MEDICARE - PB MEDICARE PB ONLY [id number] 2015-Present ATTN: CLAIMS USE ONLY [address] [place] [address] [employer] [place] [place] [employer] [id number] 2019-Present [address] [address] [place] [address] Advance Directives Latest Code Status on File Code Status Date Activated Date Inactivated Comments Full Code 05/16/2021 10:27 AM 05/19/2021 1:48 PM Code Status Discussion: Per Existing Order Full Code 03/18/2014 3:20 PM 03/25/2014 4:35 PM Care Teams Retail Sales Director Relationship Specialty Start Date End Date Mar Alfaro DO PCP - General Family Practice 09/05/15 [address] [place] [address] Rebecca Cardenas, CHIEF PROGRAM OFFICER Psychiatry Clinical Nurse Specialist 09/15/21 [address] [address]
--- OUTSIDE RECORDS SUMMARY | 2022-06-16 18:02 | XMS_ITS | Clinical Summary ---
:1975 Author Organization [facility] Address [address] [place] [address] Care Team Providers Name Role Phone Mar [...] for each transition of care or referral. [facility] Allergies No known active allergies Medications Medication [...] Mononitrate TAKE 1 TABLET 30 Tablet 3 09/13/2021 Active (B1) 100 MG TABS (100 MG) [...] contusion, C5 fracture, T4 fracture. Recovery at [place]. T4 vertebral fracture 03/05/2013 Cervical high risk [...] 20+ yrs, 3 02/09/2005 dose series) Influenza [id number] 06/09/2009 Influenza IIV4 (Quadrivalent) 0.5mL 05/17/2021, 04/21/2020, 05/31/2014, (20131) 06/06/2012, 05/10/2011, 05/22/2009 [facility] COVID-19 Vaccine 12/10/2020 [...] Comments Blood Pressure 123/58 09/13/2021 11:00 AM HEALTH PHYSICS TECHNICIAN Pulse 86 09/13/2021 11:00 AM HEALTH PHYSICS TECHNICIAN Temperature 36.8 ??C (98.2 ??F) 09/13/2021 11:00 AM HEALTH PHYSICS TECHNICIAN Respiratory Rate 16 09/13/2021 11:00 AM HEALTH PHYSICS TECHNICIAN Oxygen Saturation 96% 09/13/2021 11:00 AM HEALTH PHYSICS TECHNICIAN Inhaled Oxygen Concentration - - Weight 102.2 kg (225 lb 3.2 oz) 09/08/2021 8:00 AM HEALTH PHYSICS TECHNICIAN Height 157.5 cm (5' 2) 09/08/2021 8:00 AM HEALTH PHYSICS TECHNICIAN Body Mass Index 41.19 09/08/2021 8:00 AM HEALTH PHYSICS TECHNICIAN Plan of Treatment Health Maintenance Due Date [...] Phone Addre ss Type Group MEDICARE MEDICARE [id number] 2015-Presen [phone] ATTN CL AIMS Medicare t 0 [address] [place] [address] BCBS BCBS PMAP BLUE [id number] 2019-Presen [address] [address] Medicaid ADVANTAGE t [place] [id number] [place]iano Personal/Family Self 1975 [address] (Home) [place] [id number] [place] Personal/Family Self 1975 [address] (Home) [place] [id number] [place] LUCIANO Personal/Family Advance Directives Latest Code Status on File Code Status Date Activated Date Inactivated Comments Full Code 09/03/2021 8:48 PM 09/13/2021 4:56 PM Code Status History Code Status Date Activated Date Inactivated Comments Full Code 08/31/2021 6:12 PM 09/03/2021 8:33 PM Care Teams Sharepoint Trainer Relationship Specialty Start Date End Date Mar Alfaro DO PCP - General Family Practice 03/09/[address] [place] [address]
--- OUTSIDE RECORDS SUMMARY | 2022-06-16 18:03 | XMS_ITS | Encounter Summary ---
:1975 Author Organization [facility] Address [address] [place] [address] Care Team Providers Name Role Phone No Primary/Referring, Phy Primary Care Provider Unavailable Encounter Details Date Type Department Care Team Description 09/13/2021 Orders Only RH NE8 Brandon Murphy MD [address] [facility] [address] [place] [address] [place] [address] [phone] (Wo rk) Social History Tobacco Use Types [...] on filedocumented in this encounter Care Teams Strip Cleaner Relationship Specialty Start Date End Date No Primary/Referring, Phy PCP - General 08/31/21 documented as of this encounter
--- OUTSIDE RECORDS SUMMARY | 2022-06-16 18:03 | XMS_ITS | Encounter Summary ---
:1975 Author Organization [facility] Address [address] [place] [address] Care Team Providers Name Role Phone No Primary/Referring, Phy Primary Care Provider Unavailable Encounter Details Date Type Department Care Team Description 09/03/2021 Orders Only RH W2 OBSERVATION Leah Salazar MD [address] [facility] [address] [place] [address] [place] [address] [phone] (Wo rk) Social History Tobacco Use Types [...] on filedocumented in this encounter Care Teams Pipelayer Relationship Specialty Start Date End Date No Primary/Referring, Phy PCP - General 08/31/21 documented as of this encounter
--- OUTSIDE RECORDS SUMMARY | 2022-06-16 18:03 | XMS_ITS | Encounter Summary ---
:1975 Author Organization [facility] Address [address] [address] Care Team Providers Name Role Phone Found, No Pcp MD Primary Care Provider Unavailable Reason for Visit Reason Comments EDEMA hands, lower legs and feet n oticed x3 days Encounter Details Date Type Department Care Team Description 05/24/2021 Office Visit [facility] Deion Sanabria Edema, un specified Hector Root PA-C type (Primary Dx) [address] [facility] [address] [place] [address] [place], [place] [phone] Social History Tobacco Use Types Packs/Day Years [...] on her ankles. She [facility]. She notes that she was taken of chlorthalidone while at the [facility], though does not know why. Review of [...] or chest pain. Her PCP is in [facility]. OBJECTIVE: BP (!) 122/97 (BP Location: Right [...] Primary documented in this encounter Care Teams Crack Off Person Relationship Specialty Start Date End Date Found, No Pcp, PCP - General 09/16/17 08/30/21 [address] [place] [address] documented as of this encounter
--- OUTSIDE RECORDS SUMMARY | 2022-06-16 18:03 | XMS_ITS | Encounter Summary ---
:1975 Author Organization [facility] Address [address] [place] [address] Care Team Providers Name Role Phone Unavailable Primary Care Provider Unavailable Encounter Details Date Type Department Care Team Description 05/25/2013 Hospital Encounter [facility] [address] [facility] [address] [facility] [id number] [place], [place] [id number] Social History Tobacco Use Types Packs/Day Years [...] 5:34 AM Res ults for this SERUM PHYSICAL SCIENCE PROFESSOR procedure ar e in the results section. URINALYSIS Routine 05/26/2013 1:15 AM Results f or this CDT procedure are i n the results section. URINE CULTURE Routine 05/26/2013 1:15 AM Results for this CDT procedure are i n the results section. documented in this encounter Results HCG, Quantitative, Serum (08/07/2013 5:34 AM PHYSICAL SCIENCE PROFESSOR) P athologist Signature HCG For <2 0 [...] Volume Laterality 08/07/2013 5:34 AM 3 7:29 PHYSICAL SCIENCE PROFESSOR AM PHYSICAL SCIENCE PROFESSOR Daya Galicia MD LAB_1 Performing Organization Address [facility] Phon e Number HP CONVERSION Urine Culture (05/26/2013 1:15 AM CDT) [facility] Signature Source Urine HP CONVERSION Site HP CONVERSION Urine Culture Mixed gram HP CONVERSION positive organisms. 10-50,000 cfu/mL Specimen (Source) Anatomical Collection Method Collection Time Re ceived Time Location / / Volume Laterality Urine: 05/26/2013 1:15 AM CDT Daya Galicia MD LAB_1 Performing Organization Address [facility] Phon e Number HP CONVERSION Urinalysis (05/26/2013 1:15 AM CDT) [facility] Method Time Signature Urine Type Cln catch [...] U Specific 1.005 1.005 - HP CONVERSION [place] 1.030 Urobilinogen Negative Negative HP CONVERSION Urine [...]
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
--- OUTSIDE RECORDS SUMMARY | 2022-06-16 18:03 | XMS_ITS | Encounter Summary ---
:1975 Author Organization [email or web address] Address [address] [place] [address] Care Team Providers Name Role Phone Needs Pcp, Assignment Primary Care Provider Encounter Details Date Type Department Care Team Description 10/16/2015 Notes/Orders CODING DEPT ONLY 5050 Needs Pcp, Assignment [facility] [place], N [id number] Social History Tobacco Use Types Packs/Day Years [...] filedocumented in this encounter Care Teams Director Learning And Development Relationship Specialty Start Date End Date Needs Pcp, Assignment PCP - General 11/12/13 09/15/17 [facility] [place] [address] documented as of this encounter
--- OUTSIDE RECORDS SUMMARY | 2022-06-16 18:03 | XMS_ITS | Encounter Summary ---
:1975 Author Organization [employer] Address [address] [place] [address] Care Team Providers Name Role Phone No Primary/Referring, Phy Primary Care Provider Unavailable Reason for Referral Consult/Transfer Care (Routine) - Incomplete Specialty Diagnoses / Procedures Referred By Contact Refer red To Contact Diagnoses Migraine without status migrainosus, not intractable, unspecified migraine type Hypertension, unspecified type (HRC) Brandon Murphy MD [address] [place] [address] Referral ID Status Reason Start Date Expiration Date Visits V isits Requested Authorized [id number] Incomplete 09/13/2021 12/12/2021 1 1 Scheduling Instructions If scheduling assistance is needed, plea se inquire with the Hospital staff upon discharge. 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 SHOVER Consult/Transfer Care (Routine) - Incomplete Specialty Diagnoses / Procedures Referred By Contact Refer red To Contact Diagnoses PTSD (post-traumatic stress disorder) (HRC) Brandon Murphy MD [address] [place] [address] Referral ID Status Reason Start Date Expiration Date Visits V isits Requested Authorized [id number] Incomplete 09/12/2021 12/11/2021 1 1 Scheduling Instructions If scheduling assistance is needed, sebastian bateman inquire with the Hospital staff upon discharge. SHOVER Consult/Transfer Care (Routine) - Incomplete Specialty Diagnoses / Procedures Referred By Contact Refer red To Contact Diagnoses Major depression (HRC) Brandon Murphy MD [address] [place] [address] Referral ID Status Reason Start Date Expiration Date Visits V isits Requested Authorized [id number] Incomplete 09/12/2021 03/11/2022 1 1 Scheduling Instructions [...] ask your clinician's staff to assist you. SHOVER Reason for Visit Auth/Cert Specialty Diagnoses / Procedures Referred By Contact Refer red To Contact Diagnoses Suicidal ideation . Referral ID Status Reason Start Date Expiration Date Visits Requ ested Visits Authorized [id number] 1 1 Encounter Details Date Type Department Care Team Description 09/03/2021 - [facility] 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); [phone] Major depressio n; PTSD (post-trau matic stress [...] Comments Blood Pressure 123/58 09/13/2021 11:00 AM PAN SHOVER Pulse 86 09/13/2021 11:00 AM PAN SHOVER Temperature 36.8 ??C (98.2 ??F) 09/13/2021 11:00 AM PAN SHOVER Respiratory Rate 16 09/13/2021 11:00 AM PAN SHOVER Oxygen Saturation 96% 09/13/2021 11:00 AM PAN SHOVER Inhaled Oxygen Concentration - - Weight 102.2 kg (225 lb 3.2 oz) 09/08/2021 8:00 AM PAN SHOVER Height 157.5 cm (5' 2) 09/08/2021 8:00 AM PAN SHOVER Body Mass Index 41.19 09/08/2021 8:00 AM PAN SHOVER documented in this encounter Discharge Summaries Rudy Rees RN - 09/13/2021 1:41 PM CST [facility] Discharge Note - Nursing Admission Date/Time: 09/03/2021 [...] stored: N/A --- End of Report --- SHOVER Brandon Murphy MD - 09/13/2021 8:39 AM CST [facility] PSYCHIATRY DISCHARGE SUMMARY Admission Date and Time: [...] that she used to work as a [employer] and lived independently. However, she does not know when she last worked. She thinks that she was most recently living with her daughter and her daughter's boyfriend at her house in [place] near [place]. Patient has history of drinking and was [...] The multidisciplinary treatment team met (RN, OT, case management social worker, Physician) on a daily basis to discuss patient care and treatment planning. The psychiatric inpatient setting provided close nursing supervision and access to multiple treatment modalities and programming (group therapy, OT, one-to-one therapy.) Patient support systems such as family, case maker, and other care providers were contacted as appropriate for collateral information and treatment planning. 1. Medication Trials and Changes: 09/04/2021:??Continue on SPRING CLIPPER Donepezil 10mg qhs, Cymbalta 60mg daily, Melatonin [...] adherence: good 5. Change in psychiatric symptoms: Key Peres is a 46 y.o. old female with history of severe alcohol use disorder, TBI with cognitive impairment from 2012, depression and anxiety??who??was initially admitted to medical unit for worsening memory loss and suicidal ideation from sober housing. She had a recent admission to??[facility] 08/26 - where she had [...] discharge. Also need neuropsych testing after discharge. 2: Still ahving memeory issues. Due to concern for WKS will start high-dose IM thiamine for a few days. Will reasses MOCA once this is done. 2: Key still has memeory issues, some confusion and anxiety. Due to issues with migraine will increase duloxetine and cosolidate gabapentin. Discussed naltrexone that she is not keen on. 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 09/11: Key seems to be [...] worsening memory loss. She was admitted to [facility] 08/26 - where she had [...] -restart amlodipine 2.5mg with hold parameters -Hold SPRING CLIPPER chlorthalidone and amlodipine -follow up with PCP next week for BP check (in office, not telemedicine) ?? Chronic Issues: Alcohol substance use disorder -Continue supportive vitamins ?? Traumatic Brain Injury -SPRING CLIPPER Aricept ?? Chronic Pain -SPRING CLIPPER gabapentin, cymbalta Mental Status Exam on Discharge [...] lost one point on orientation to city ([place]). She made one minor mistake on sentence [...] up with your primary care physician Comments: [facility] ([facility]) [phone]; [address], [place] [address] References: Specialty Connection Shanon Salas Consult Page Question Answer Comment What type of follow up? IP Discharge Appointment Urgency? Non-Urgent Reason for visit? Medication management, htn Vital Signs Comments: Please monitor blood pressure regularly Behavioral Health Follow-Ups Comments: Date: Tuesday09/15/2021 Time: 3:15 pm Provider: BAYLEE Valentino. [facility] [address]?? [address] [place] [address]? References: Special[facility] Connection Question Answer Comment Appointment Urgency? Non-Urgent Reason for visit? Psychiatry Follow up with your primary care physician Comments: Tuesday09/16/2021 at 12:[address] Mar Alfaro. This will be at the clinic. [facility] [address] [facility]?? [place] [address]?? [phone] References: Specialty Connection Shanon Salas Consult Page Question Answer Comment What type of follow up? IP Discharge Appointment Urgency? Urgent (patient needs to be seen within one week) Reason for visit? Hospital Follow Up Discharge Instructions to Patient Comments: 1. STOP metoprolol. 2. STOP chlorthalidone. 3. STOP potassium. 4. CONTINUE amlodipine. 5. Follow up with your primary care doctor on 2/9 for blood pressure check. Discharge Medications Upon [...] tablet Multiple Dosages:DAILY Starting 09/13/2021, Until 09/19/2021 [id number], For 7 days, THEN DAILY Starting 09/20/2021, [...] you want the dose to be increased [id number] mg. You can also discuss init iating [...] by: Brandon Murphy MD 09/13/2021, 8:40 AM SHOVER documented in this encounter Discharge Instructions Discharge InstructionsJose Lisa A - 09/12/2021 12:14 PM CST Resources 1. [facility] [address], [address], [address] ([facility]) improves the lives of children and adults with mental illnesses and their families by providing free classes on mental illnesses and support groups for adults with mental illnesses, parents and family members. For more information: Toll free: 4-363-VTIU-HELPS Website: www.namihelps.org 2. Online go to: www.[place]Help.info 3 [facility] (serving [facility]) [address] [place] [address] Crisis Line Numbers 1. [facility] [phone] 2. [facility] ([facility]) [phone] 3. [facility] [phone] or [phone] 4. National Suicide Prevention Lifeline (TALK) SHOVER documented in this encounter Medications at Time [...] TAKE 2 TABLETS (6 30 Tablet 3 09/13/2022 MG) BY MOUTH AT BEDTIME NEEDED [...] TAKE 1 TABLET (100 30 Tablet 3 2 022 09/13/2022 (B1) 100 MG TABS MG) BY MOUTH DAILY. documented as of this encounter Progress Notes Shilpi Gonzalez PA-C - 09/12/2021 10:09 PM CST [facility] Medicine Progress Note Patient Name: Key Peres [...] -restart amlodipine 2.5mg with hold parameters -Hold SPRING CLIPPER chlorthalidone and amlodipine -follow up with PCP next week for BP check (in office, not telemedicine) Chronic Issues: Alcohol substance use disorder -Continue supportive vitamins Traumatic Brain Injury -SPRING CLIPPER Aricept Chronic Pain -SPRING CLIPPER gabapentin, cymbalta Depression and Anxiety w/suicidal ideations -Management per primary team (psychiatry) Medicine team will continue to follow, please page/call with questions. FEN - Regular Diet Ppx - Encourage ambulation CODE - Full Shilpi Gonzalez PA-C Department of [facility] Medicine Pager on AMION SHOVER Brandon Murphy MD - 09/12/2021 9:11 AM CST [facility] Psychiatry Progress Note PATIENT NAME: Key Peres [...] lost one point on orientation to city ([place]). She made one minor mistake on sentence [...] housing. 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 09/11: Key seems to be [...] ideation.??Low acute risk - per collateral at [facility] patient stated she would take all of her pills. Does not have access to medication in the hospital, denies active plan on my interview, denies history of suicide attempts.??Evaluated by psychiatry and she is amenable to voluntary admission. - SPRING CLIPPER olanzapine discontinued due to possible contributions to [...] PTSD, anxiety, memory impairment, TBI??who presented to [facility] for??SI. ?? Alcohol use disorder, [...] with history TBI and recent admission at [facility] with new onset seizure, who [...] TBI, andpossibly underlying psychiatric illness. I doubt PAIRER ODDS infection or subclinical seizures. Given recentextensive work [...] Ureña MD?09/01/2021, 1:20 PM Department of Neurology [facility]? Medication Ordered/Consults/Labs/Tests Ordered: 09/04/2021: Continue on SPRING CLIPPER Donepezil 10mg qhs, Cymbalta 60mg daily, Melatonin [...] insurance Brandon Murphy MD 09/12/2021, 9:11 AM SHOVER Eads, Shilpi Ramsay PA-C - 09/11/2021 4:45 PM CST Med Brief Note. Non-billable. Date of Service: 09/11/2021 Chart reviewed, including vital signs, primary team notes and RN notes. Did not require any medication for headache last night. BP stable this AM, received amlodipine 2.5 mg. Vitals: 09/10/21 1600 09/10/21 2100 09/11/21 0800 BP: (!) 152/85 116/85 Pulse: (!) [...] questions or concerns. Shilpi Gonzalez PA-C Department of [facility] Medicine Pager on AMION SHOVER Brandon Murphy MD - 09/11/2021 2:33 PM CST [facility] Psychiatry Progress Note PATIENT NAME: Key Peres [...] lost one point on orientation to city ([place]). She made one minor mistake on sentence [...] housing. She had a recent admission to [facility] 08/26 - where she had [...] Will reasses MOCA once this is done. 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 09/11: Key seems to be [...] ideation.??Low acute risk - per collateral at [facility] patient stated she would take all of her pills. Does not have access to medication in the hospital, denies active plan on my interview, denies history of suicide attempts.??Evaluated by psychiatry and she is amenable to voluntary admission. - SPRING CLIPPER olanzapine discontinued due to possible contributions to [...] PTSD, anxiety, memory impairment, TBI??who presented to [facility] for??SI. ?? Alcohol use disorder, [...] with history TBI and recent admission at [facility] with new onset seizure, who [...] TBI, andpossibly underlying psychiatric illness. I doubt PAIRER ODDS infection or subclinical seizures. Given recentextensive work [...] Ureña MD?09/01/2021, 1:20 PM Department of Neurology [facility]? Medication Ordered/Consults/Labs/Tests Ordered: 09/04/2021: Continue on SPRING CLIPPER Donepezil 10mg qhs, Cymbalta 60mg daily, Melatonin [...] the patient consisted of: psychoeducation, supportive therapy, [place], sobriety concerns. Brandon Murphy MD 09/11/2021, 2:34 PM SHOVER LisaShilpi PA-C - 09/10/2021 7:10 PM CST [facility] Medicine Progress Note Patient Name: Key Peres [...] -restart amlodipine 2.5mg with hold parameters -Hold SPRING CLIPPER chlorthalidone and amlodipine; can restart if pressures are elevated. Chronic Issues: Alcohol substance use disorder -Continue supportive vitamins Traumatic Brain Injury -SPRING CLIPPER Aricept Chronic Pain -SPRING CLIPPER gabapentin, cymbalta Depression and Anxiety w/suicidal ideations -Management per primary team (psychiatry) Medicine team will continue to follow, please page/call with questions. FEN - Regular Diet Ppx - Encourage ambulation CODE - Full Shilpi Gonzalez PA-C Department [facility] Medicine Pager on AMION SHOVER Brandon Murphy MD - 09/10/2021 8:51 AM CST [facility] Psychiatry Progress Note PATIENT NAME: Key Peres [...] and Concentration: adequate Memory: impaired--short term and fci impairment noted. Fund of Knowledge: likely diminished due to TBI Insight: poor Judgement: poor IMPRESSION Key Peres is a 46 y.o. old female with history of severe alcohol use disorder, TBI with cognitive impairment from 2012, depression and anxiety who was initially admitted to medical unit for worsening memory loss and suicidal ideation from sober housing. She had a recent admission to [facility] 08/26 - where she had [...] discharge. Also need neuropsych testing after discharge. 2/1: Still ahving memeory issues. Due to concern [...] how much she will benefit in the fci is debatable. DIAGNOSES & PLAN Principal Psychiatric [...] ideation.??Low acute risk - per collateral at [facility] patient stated she would take all of her pills. Does not have access to medication in the hospital, denies active plan on my interview, denies history of suicide attempts.??Evaluated by psychiatry and she is amenable to voluntary admission. - SPRING CLIPPER olanzapine discontinued due to possible contributions to [...] PTSD, anxiety, memory impairment, TBI??who presented to [facility] for??SI. ?? Alcohol use disorder, [...] with history TBI and recent admission at [facility] with new onset seizure, who [...] TBI, andpossibly underlying psychiatric illness. I doubt PAIRER ODDS infection or subclinical seizures. Given recentextensive work [...] Ureña MD?09/01/2021, 1:20 PM Department of Neurology [facility]? Medication Ordered/Consults/Labs/Tests Ordered: 09/04/2021: Continue on SPRING CLIPPER Donepezil 10mg qhs, Cymbalta 60mg daily, Melatonin [...] insurance Brandon Murphy MD 09/10/2021, 8:51 AM SHOVER LisaShilpi PA-C - 09/09/2021 9:58 PM CST [facility] Medicine Progress Note Patient Name: Key Peres [...] pressure and HR are stable. Continue. -Hold SPRING CLIPPER chlorthalidone and amlodipine; can restart if pressures are elevated. Chronic Issues: Alcohol substance use disorder -Continue supportive vitamins Traumatic Brain Injury -SPRING CLIPPER Aricept Chronic Pain -SPRING CLIPPER gabapentin, cymbalta Depression and Anxiety w/suicidal ideations -Management per primary team (psychiatry) Medicine team will continue to follow, please page/call with questions. FEN - Regular Diet Ppx - Encourage ambulation CODE - Full Shilpi Gonzalez PA-C Department of Hospital Medicine Pager on AMION SHOVER Brandon Murphy MD - 09/09/2021 8:34 AM CST [facility] Psychiatry Progress Note PATIENT NAME: Key Peres [...] and Concentration: adequate Memory: impaired--short term and label designer impairment noted. Can't remember where she was [...] housing. She had a recent admission to [facility] 08/26 - where she had [...] ideation.??Low acute risk - per collateral at [facility] patient stated she would take all of her pills. Does not have access to medication in the hospital, denies active plan on my interview, denies history of suicide attempts.??Evaluated by psychiatry and she is amenable to voluntary admission. - SPRING CLIPPER olanzapine discontinued due to possible contributions to [...] PTSD, anxiety, memory impairment, TBI??who presented to [facility] for??SI. ?? Alcohol use disorder, [...] with history TBI and recent admission at [facility] with new onset seizure, who [...] TBI, andpossibly underlying psychiatric illness. I doubt PAIRER ODDS infection or subclinical seizures. Given recentextensive work [...] Ureña MD?09/01/2021, 1:20 PM Department of Neurology [facility]? Medication Ordered/Consults/Labs/Tests Ordered: 09/04/2021: Continue on SPRING CLIPPER Donepezil 10mg qhs, Cymbalta 60mg daily, Melatonin [...] insurance Brandon Murphy MD 09/09/2021, 8:36 AM SHOVER Ronald Michael PA-C - 09/08/2021 3:22 PM CST [facility] Medicine Progress Note Patient Name: Key Peres [...] pressure and HR are stable. Continue. -Hold SPRING CLIPPER chlorthalidone and amlodipine; can restart if pressures are not stable. Chronic Issues: Alcohol substance use disorder -Continue supportive vitamins Traumatic Brain Injury -SPRING CLIPPER Aricept Chronic Pain -SPRING CLIPPER gabapentin, cymbalta Depression and Anxiety w/suicidal ideations -Management per primary team (psychiatry) Medicine team will continue to follow, please page/call with questions. FEN - Regular Diet Ppx - Encourage ambulation CODE - Full JANN ChurchC [facility] Medicine SHOVER Brandon Murphy MD - 09/08/2021 3:09 PM CST [facility] Psychiatry Progress Note PATIENT NAME: Key Peres [...] and Concentration: adequate Memory: impaired--short term and label designer impairment noted. Can't remember where she was [...] housing. She had a recent admission to [facility] 08/26 - where she had [...] ideation.??Low acute risk - per collateral at [facility] patient stated she would take all of her pills. Does not have access to medication in the hospital, denies active plan on my interview, denies history of suicide attempts.??Evaluated by psychiatry and she is amenable to voluntary admission. - SPRING CLIPPER olanzapine discontinued due to possible contributions to AMS ?? Hypokalemia Noted to be hypokalemic on admission which was repleted with PO and IV potassium. ??Level improved. ??Started on supplemental K 40 meq BID. ??Continue repletion on discharge. - Will need repeat potassium check with PCP after discharge (or while admitted to psych if prolongedadmission), would aim to check by / at the latest. ?? Addiction Medicine Consult on 09/02/21: Assessment, Recommendations/Plan: Key Peres??is a 46 y.o.??old female??with a past medical history significant for alcohol use disorder, PTSD, anxiety, memory impairment, TBI??who presented to [facility] for??SI. ?? Alcohol use disorder, [...] with history TBI and recent admission at [facility] with new onset seizure, who [...] TBI, andpossibly underlying psychiatric illness. I doubt PAIRER ODDS infection or subclinical seizures. Given recentextensive work [...] Ureña MD?09/01/2021, 1:20 PM Department of Neurology [facility]? Medication Ordered/Consults/Labs/Tests Ordered: 09/04/2021: Continue on SPRING CLIPPER Donepezil 10mg qhs, Cymbalta 60mg daily, Melatonin [...] insurance Brandon Murphy MD 09/08/2021, 8:33 AM SHOVER Darya Jane PA-C - 09/07/2021 11:51 AM CST [facility] Psychiatry Progress Note PATIENT NAME: Key Peres [...] and Concentration: adequate Memory: impaired--short term and label designer impairment noted. Can't remember where she was [...] housing. She had a recent admission to [facility] 08/26 - where she had [...] ideation.??Low acute risk - per collateral at [facility] patient stated she would take all of her pills. Does not have access to medication in the hospital, denies active plan on my interview, denies history of suicide attempts.??Evaluated by psychiatry and she is amenable to voluntary admission. - SPRING CLIPPER olanzapine discontinued due to possible contributions to [...] PTSD, anxiety, memory impairment, TBI??who presented to [facility] for??SI. ?? Alcohol use disorder, [...] with history TBI and recent admission at [facility] with new onset seizure, who [...] TBI, andpossibly underlying psychiatric illness. I doubt PAIRER ODDS infection or subclinical seizures. Given recentextensive work [...] Ureña MD?09/01/2021, 1:20 PM Department of Neurology [facility]? Medication Ordered/Consults/Labs/Tests Ordered: 09/04/2021: Continue on SPRING CLIPPER Donepezil 10mg qhs, Cymbalta 60mg daily, Melatonin [...] Location of clinician Home. Location of patient [facility]. Billing based on: Complexity Report Completed By: Darya Jane PA-C SHOVER Darya Jane PA-C - 09/06/2021 8:33 AM CST [facility] Psychiatry Progress Note PATIENT NAME: Key Peres [...] and Concentration: adequate Memory: impaired--short term and fci impairment noted Fund of Knowledge: likely diminished due to TBI Insight: poor Judgement: poor IMPRESSION Key Peres is a 46 y.o. old female with history of severe alcohol use disorder, TBI with cognitive impairment from 2012, depression and anxiety who was initially admitted to medical unit for worsening memory loss and suicidal ideation from sober housing. She had a recent admission to [facility] 08/26 - where she had [...] ideation.??Low acute risk - per collateral at [facility] patient stated she would take all of her pills. Does not have access to medication in the hospital, denies active plan on my interview, denies history of suicide attempts.??Evaluated by psychiatry and she is amenable to voluntary admission. - SPRING CLIPPER olanzapine discontinued due to possible contributions to [...] PTSD, anxiety, memory impairment, TBI??who presented to [facility] for??SI. ?? Alcohol use disorder, [...] with history TBI and recent admission at [facility] with new onset seizure, who [...] TBI, andpossibly underlying psychiatric illness. I doubt PAIRER ODDS infection or subclinical seizures. Given recentextensive work [...] Ureña MD?09/01/2021, 1:20 PM Department of Neurology [facility]? Medication Ordered/Consults/Labs/Tests Ordered: 09/04/2021: Continue on SPRING CLIPPER Donepezil 10mg qhs, Cymbalta 60mg daily, Melatonin [...] Location of clinician Home. Location of patient [facility]. Billing based on: Complexity Report Completed By: Darya Jane PA-C SHOVER Darya Jane PA-C - 09/05/2021 8:13 AM CST [facility] Psychiatry Progress Note PATIENT NAME: Key Peres [...] and Concentration: adequate Memory: impaired--short term and fci impairment noted Fund of Knowledge: likely diminished due to TBI Insight: poor Judgement: poor IMPRESSION Key Peres is a 46 y.o. old female with history of severe alcohol use disorder, TBI with cognitive impairment from 2012, depression and anxiety who was initially admitted to medical unit for worsening memory loss and suicidal ideation from sober housing. She had a recent admission to [facility] 08/26 - where she had [...] ideation.??Low acute risk - per collateral at [facility] patient stated she would take all of her pills. Does not have access to medication in the hospital, denies active plan on my interview, denies history of suicide attempts.??Evaluated by psychiatry and she is amenable to voluntary admission. - SPRING CLIPPER olanzapine discontinued due to possible contributions to [...] PTSD, anxiety, memory impairment, TBI??who presented to [facility] for??SI. ?? Alcohol use disorder, [...] with history

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
== END 2022-06-16 18:15 | disposition home or self-care (01) ==
LOC: ED 17:53
PROVIDERS: Emergency Provider Family Medicine; PCP Family Medicine
DX: F41.8 Other specified anxiety disorders (principal); Z87.820 Personal history of traumatic brain injury
CPT/HCPCS: 99283; A9270